=== PATIENT | female | born 1990 | race Caucasian/White ===

== ENCOUNTER 2023-11-25 10:08 | Outpatient (OUT) | payer BC, SELFPAY ==
--- NOTE | 2023-11-25 10:10 | US_ITS ---
The [address] [address] Patient Name: VERO ANAYA MRN: [id number] date: 1990 Sex: F Assigned Patient Location: [facility] Current Patient Location: [facility] Accession/Order Number: [id number] Exam Date: 11/25/2023 10:11 Report Date: 11/25/2023 11:31 At the request of: BECKI TUCKER Procedure: US OB transvaginal EXAMINATION: US OB transvaginal HISTORY: MISSED MENSES COMPARISON: No relevant comparison available. FINDINGS: GESTATIONAL SAC: Present and normal appearing. YOLK SAC: Present and normal appearing. POLE: Present and normal appearing. CARDIAC: Present. UTERUS: Normal size and appearance. OVARIES: Right: Normal. Left: Corpus lutein cyst. CERVIX: cm in length and closed. CUL-DE-SAC: Normal. OTHER: Prominent scarring lower anterior uterine wall from prior . AGE BY LMP: 8 weeks 0 days FREDDIE BY LMP: 07/02/2024 AGE BY US CRL: 7 weeks 5 days FREDDIE BY US CRL: 07/08/2024 US/US OB transvaginal IMPRESSION: 1. Single live intrauterine with growth detailed above. 2. Prominent scar within lower anterior uterine wall; no appreciable thinning at this time. Consider follow-up. Electronically authenticated by: FREDY DICK Date: 11/25/2023 11:31
== END 2023-11-25 10:09 | disposition home or self-care (01) ==
LOC: NOMS 10:09
PROVIDERS: PCP Family Medicine; Visit Provider Obstetrics & Gynecology
DX: Z34.91 Encounter for supervision of normal pregnancy, unspecified, first trimester (principal); Z3A.01 Less than 8 weeks gestation of pregnancy; N92.6 Irregular menstruation, unspecified
CPT/HCPCS: 76817

== ENCOUNTER 2023-12-20 10:41 | Outpatient (OUT) | payer BC, SELFPAY ==
--- OUTSIDE RECORDS SUMMARY | 2023-12-20 11:01 | XMS_ITS | CCD ---
Author Organization [facility] Care Team Providers Care Chorus Dancer Name Role Phone MORTEZAK ., DR MARTIN Admitting Unavailabl e KARASIK ., DR MARTIN Consulting Unavailabl e REQUEST, DR HILARIO LISTED Primary Care Unavaila ble KARASIK ., DR MARTIN Attending Unavailabl e KARASIK ., DR MARTIN Admitting Unavailabl e KARASIK ., DR MARTIN Attending Unavailabl e KARASIK ., DR MARTIN Consulting Unavailabl e REQUEST, DR NONE LISTED Primary Care Unavaila ble KARASIK ., DR MARTIN Attending Unavailabl e KARASIK ., DR MARTIN Admitting Unavailabl e KARASIK ., DR MARTIN Consulting Unavailabl e REQUEST, NONE LISTED Primary Care Unavaila ble KARASIK ., DR MARTIN Attending Unavailabl e KARASIK ., DR MARTIN Admitting Unavailabl e KARASIK ., DR MARTIN Consulting Unavailabl e REQUEST, DR NONE LISTED Primary Care Unavaila ble KARASIK ., DR MARTIN Attending Unavailabl e KARASIK ., DR MARTIN Admitting Unavailabl e KARASIK ., DR MARTIN Consulting Unavailabl e REQUEST, NONE LISTED Primary Care Unavaila ble WEST, DR ASHLEE Castro Consulting Unavailable KARASIK ., DR MARTIN Attending Unavailabl e KARASIK ., DR MARTIN Admitting Unavailabl e KARASIK ., DR MARTIN Consulting Unavailabl e REQUEST, DR RICH LISTED Primary Care Unavaila ble KARASIK ., DR MARTIN Attending Unavailabl e KARASIK ., DR MARTIN Admitting Unavailabl e KARASIK ., DR MARTIN Consulting Unavailabl e REQUEST, NONE LISTED Primary Care Unavaila ble KARASIK ., DR MARTIN Attending Unavailabl e KARASIK ., DR MARTIN Admitting Unavailabl e KARASIK ., DR MARTIN Consulting Unavailabl e REQUEST, NONE LISTED Primary Care Unavaila ble ZIEBER, DR FREDY Copeland Consulting Unavailable KARASIK ., DR MARTIN Admitting Unavailabl e KARASIK ., DR MARTIN Consulting Unavailabl e KARASIK ., DR MARTIN Attending Unavailabl e REQUEST, DR NONE LISTED Primary Care Unavaila ble GARRETT ., DR CONNELL Attending Unavailable GARRETT ., DR CONNELL Procedure Practitioner Unavail able REQUEST, DR NONE LISTED Primary Care Unavaila ble GARRETT ., DR CONNELL Admitting Unavailable GARRETT ., DR CONNELL Consulting Unavailable LEN, EZE Consulting Unavailable MYRA, WILLIS Consulting Unavailable FLORO ., MERRY Consulting Unavailable REINECK, DR MARKUS Turner Consulting Unavailabl e REINECK, DR MARKUS Turner Attending Unavailabl e REQUEST, DR NONE LISTED Primary Care Unavaila ble REINECK, DR MARKUS Turner Admitting Unavailabl e KARASIK ., DR MARTIN Admitting Unavailabl e KARASIK ., DR MARTIN Consulting Unavailabl e REQUEST, DR NONE LISTED Primary Care Unavaila ble KARASIK ., DR MARTIN Attending Unavailabl e GARRETT ., DR CONNELL Consulting Unavailable ZIEBER, DR FREDY Copeland Consulting Unavailable GARRETT, BECKI Attending Unavailable GARRETT, BECKI Attending Unavailable GARRETT, BECIK Attending Unavailable Allergies Allergy Classification Reported Allergen(s) Allergy Type Date of Onset Reaction(s) Facility (1 source) Azithromycin Drug Allergy 12-16-2013 [facility] Repository Problems Active Problems Problem Classification Problem Date Documented Da te Episodic/Chronic Diabetes mellitus without complication (1 source) Other abnormal glucose; Translations: [OTHER ABNORMAL GLUCOSE] Onset: 10-31-2022 Episodic Diabetes or abnormal glucose tolerance complicating ; childbirth; or the puerperium (4 sources) Abnormal glucose complicating ; Translations: [ABNORMAL GLUCOSE COMP ] Onset: 10-26-2022 Episodic Early or threatened labor (4 sources) False labor before 37 completed weeks of gestation, third trimester; Translations: [FALSE LABR BEFOR 37 WK GEST 3RD TRI] Onset: 10-27-2022 Episodic Mood disorders (1 source) Bipolar disorder, unspecified; Translations: [BIPOLAR DISORDER UNSPECIFIED] Onset: 12-14-2022 Chronic Nausea and vomiting (1 source) Nausea; Translations: [NAUSEA] Onset: 11-03-2022 Episodic Other aftercare (1 source) 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; Translations: [OTH SENIOR LIVING CURRENT DRUG THERAPY] Onset: 12-14-2022 Episodic Other complications of ; puerperium affecting management of mother (3 sources) Other viral diseases complicating childbirth; Translations: [OTH VIRAL DISEASES COMP CHILDBIRTH] Onset: 12-09-2022 Episodic Other complications of ; puerperium affecting management of mother (1 source) Liver and biliary tract disorders in childbirth; Translations: [LIVER AND CJ TRACT D/O CHILDBIRTH] Onset: 12-14-2022 Episodic Other complications of ; puerperium affecting management of mother (1 source) Diseases of the digestive system complicating childbirth; Translations: [DZ DIGESTIVE SYSTEM COMP CHILDBIRTH] Onset: 12-14-2022 Episodic Other complications of ; puerperium affecting management of mother (1 source) Other mental disorders complicating childbirth; Translations: [OTH MENTAL D/O COMP CHILDBIRTH] Onset: 12-14-2022 Episodic Other complications of (1 source) Other specified related conditions, third trimester; Translations: [OTH SPEC PREG RELATED COND 3RD TRI] Onset: 11-03-2022 Episodic Other gastrointestinal disorders (1 source) Irritable bowel syndrome without diarrhea; Translations: [IRRITABLE BOWEL SYND W/O DIARRHEA] Onset: 12-14-2022 Chronic Other liver diseases (1 source) Fatty (change of) liver, not elsewhere classified; Translations: [FATTY CHANGE LIVER NEC] Onset: 12-14-2022 Chronic Other and delivery including normal (14 sources) Single live ; Translations: [Encounter for supervision of normal , unspecified, third trimester] Onset: 05-20-2022 Episodic Other screening for suspected conditions (not mental disorders or infectious disease) (16 sources) Encounter for screening for Streptococcus B; Translations: [Encounter for screening for diabetes mellitus] Onset: 07-20-2022 Episodic Residual codes; unclassified (1 source) 39 weeks gestation of ; Translations: [39 WEEKS GESTATION OF ] Onset: 12-14-2022 Episodic Residual codes; unclassified (1 source) 37 weeks gestation of ; Translations: [37 WEEKS GESTATION OF ] Onset: 11-27-2022 Episodic Residual codes; unclassified (1 source) 33 weeks gestation of ; Translations: [33 WEEKS GESTATION OF ] Onset: 11-03-2022 Episodic Screening and history of mental health and substance abuse codes (1 source) Personal history of nicotine dependence; Translations: [PERSONAL HISTORY OF NICOTINE DEPEND] Onset: 12-14-2022 Episodic Substance-related disorders (3 sources) Drug use complicating childbirth; Translations: [Cannabis use, unspecified, uncomplicated] Onset: 11-03-2022 Episodic Viral infection (1 source) Herpesviral infection, unspecified; Translations: [HERPESVIRAL INFECTION UNSPECIFIED] Onset: 12-14-2022 Episodic Past or Other Problems Problem Classification Problem Date Documented Date Episodic/Chronic Immunizations and screening for infectious disease (1 source) Encounter for screening for human papillomavirus (HPV); Translations: [ENC SCREENING HUMAN PAPILLOMAVIRUS] Onset: 07-23-2022 Episodic Other complications of (3 sources) Vomiting of , unspecified; Translations: [VOMITING OF UNSPECIFIED] Onset: 06-16-2022 Episodic Other complications of (1 source) Mild hyperemesis gravidarum; Translations: [MILD HYPEREMESIS GRAVIDARUM] Onset: 06-20-2022 Episodic Residual codes; unclassified (1 source) 13 weeks gestation of ; Translations: [13 WEEKS GESTATION OF ] Onset: 06-20-2022 Episodic Results Test Name Value Interpretation Reference Range Facility CANNABINOID (THC) CONFIRMATI ON, URINEon 12-15-2022 Cannabinoid Positive Abnormal [facility] Comment on above: Performed By: #### C BC #### [facility] [address] [place] [address] Dr. Isi Summers THC GC/MS Conf >750 Normal Cutoff=10 [facility] Comment on above: Performed By: #### C BC #### [facility] [address] [place] [address] Dr. Isi Forbes CBC AUTO DIFFon 12-10-2022 BASO # 0.0 103/ul Normal 0.0-0.1 [facility] Comment on above: Performed By: #### G TT3P #### [facility] [address] [place] [address] Dr. Isi Forbes Basophils/100 WBC (Bld) 0.3 % Normal 0.2-2.0 [facility] Comment on above: Performed By: #### G TT3P #### [facility] [address] [address] [address] Isi Forbes EO # 0.1 103/ul Normal 0.0-0.7 [facility] Comment on above: Performed By: #### G TT3P #### [facility] [address] [address] [address] Isi Forbes Eosinophils/100 WBC (Bld) 0.5 % Critically low 0.9-7.0 [facility] Comment on above: Performed By: #### G TT3P #### [facility] [address] [place] [address] Dr. Isi Forbes Erythrocyte distribution width (RBC) [Ratio] 13.8 % Normal 11.0-15.0 [facility] Comment on above: Performed By: #### G TT3P #### [facility] [address] [place] [address] Dr. Isi Forbes Hematocrit (Bld) [Volume fraction] 24.1 % Critically low 36.0-48.0 [facility] Comment on above: Performed By: #### G TT3P #### [facility] [address] [place] [address] Dr. Isi Forbes Hemoglobin (Bld) [Mass/Vol] 7.7 g/dL Critically low 12.0-16.0 [facility] Comment on above: Performed By: #### G TT3P #### [facility] [address] [place] [address] Dr. Isi Forbes IG # 0.11 10e3/ul Critically high 0.00-0.03 [facility] Comment on above: Performed By: #### G TT3P #### [facility] [address] [place] [address] Dr. Isi Forbes IG % 0.9 % Critically high 0.0-0.5 [facility] Comment on above: Performed By: #### G TT3P #### [facility] [address] [place] [address] Dr. Isi Forbes LYMPH # 2.0 103/ul Normal 1.2-3.8 [facility] Comment on above: Performed By: #### G TT3P #### [facility] [address] [address] [address] Isi Forbes Lymphocytes/100 WBC (Bld) 16.9 % Critically low 20.5-60.0 [facility] Comment on above: Performed By: #### G TT3P #### [facility] [address] [place] [address] Dr. Isi Forbes MANUAL DIFF REQ NO Normal [facility] Comment on above: Performed By: #### G TT3P #### [facility] [address] [place] [address] Dr. Isi Forbes MCH (RBC) [Entitic mass] 27.4 pg Normal 26.7-34.0 [facility] Comment on above: Performed By: #### G TT3P #### [facility] [address] [place] [address] Dr. Isi Forbes MCHC (RBC) [Mass/Vol] 32.0 g/dL Normal 29.9-35.2 [facility] Comment on above: Performed By: #### G TT3P #### [facility] [address] [place] [address] Dr. Isi Forbes MCV (RBC) [Entitic vol] 85.8 fL Normal 81.0-99.0 [facility] Comment on above: Performed By: #### G TT3P #### [facility] [address] [place] [address] Dr. Isi Forbes MONO # 1.5 103/ul Critically high 0.3-0.8 [facility] Comment on above: Performed By: #### G TT3P #### [facility] [address] [place] [address] Dr. Isi Forbes Monocytes/100 WBC (Bld) 12.2 % Critically high 1.7-12.0 [facility] Comment on above: Performed By: #### G TT3P #### [facility] [address] [place] [address] Dr. Isi Forbes NEUT # 8.3 103/ul Critically high 1.4-6.5 [facility] Comment on above: Performed By: #### G TT3P #### [facility] [address] [address] [address] Isi Forbes Neutrophils/100 WBC (Bld) 69.2 % Normal 43.0-75.0 [facility] Comment on above: Performed By: #### G TT3P #### [facility] [address] [address] [address] Isi Forbes Platelet mean volume (Bld) [Entitic vol] 9.6 fL Normal 9.5-13.5 [facility] Comment on above: Performed By: #### G TT3P #### [facility] [address] [address] [address] Isi Forbes PLT 205 103/ul Normal 150-450 [facility] Comment on above: Performed By: #### G TT3P #### [facility] [address] [place] [address] Dr. Isi Forbes RBC 2.81 106/ul Critically low 4.20-5.40 [facility] Comment on above: Performed By: #### G TT3P #### [facility] [address] [address] [address] Isi Forbes WBC 12.0 103/ul Critically high 4.0-11.0 [facility] Comment on above: Performed By: #### G TT3P #### [facility] [address] [place] [address] Dr. Isi Forbes CBC AUTO DIFFon 12-09-2022 BASO # 0.1 103/ul Normal 0.0-0.1 [facility] Comment on above: Performed By: #### G TT3P #### [facility] [address] [address] [address] Isi Forbes Basophils/100 WBC (Bld) 0.5 % Normal 0.2-2.0 [facility] Comment on above: Performed By: #### G TT3P #### [facility] [address] [address] [address] Isi Forbes EO # 0.1 103/ul Normal 0.0-0.7 [facility] Comment on above: Performed By: #### G TT3P #### [facility] [address] [address] [address] Isi Forbes Eosinophils/100 WBC (Bld) 0.4 % Critically low 0.9-7.0 [facility] Comment on above: Performed By: #### G TT3P #### [facility] [address] [place] [address] Dr. Isi Forbes Erythrocyte distribution width (RBC) [Ratio] 13.7 % Normal 11.0-15.0 [facility] Comment on above: Performed By: #### G TT3P #### [facility] [address] [place] [address] Dr. Isi Forbes Hematocrit (Bld) [Volume fraction] 31.9 % Critically low 36.0-48.0 [facility] Comment on above: Performed By: #### G TT3P #### [facility] [address] [place] [address] Dr. Isi Forbes Hemoglobin (Bld) [Mass/Vol] 10.5 g/dL Critically low 12.0-16.0 [facility] Comment on above: Performed By: #### G TT3P #### [facility] [address] [place] [address] Dr. Isi Forbes IG # 0.13 10e3/ul Critically high 0.00-0.03 [facility] Comment on above: Performed By: #### G TT3P #### [facility] [address] [place] [address] Dr. Isi Forbes IG % 1.2 % Critically high 0.0-0.5 [facility] Comment on above: Performed By: #### G TT3P #### [facility] [address] [place] [address] Dr. Isi Fobres LYMPH # 2.0 103/ul Normal 1.2-3.8 [facility] Comment on above: Performed By: #### G TT3P #### [facility] [address] [place] [address] Dr. Isi Forbes Lymphocytes/100 WBC (Bld) 18.0 % Critically low 20.5-60.0 [facility] Comment on above: Performed By: #### G TT3P #### [facility] [address] [place] [address] Dr. Isi Forbes MANUAL DIFF REQ NO Normal [facility] Comment on above: Performed By: #### G TT3P #### [facility] [address] [place] [address] Dr. Isi Forbes MCH (RBC) [Entitic mass] 27.6 pg Normal 26.7-34.0 [facility] Comment on above: Performed By: #### G TT3P #### [facility] [address] [place] [address] Dr. Isi Forbes MCHC (RBC) [Mass/Vol] 32.9 g/dL Normal 29.9-35.2 [facility] Comment on above: Performed By: #### G TT3P #### [facility] [address] [place] [address] Dr. Isi Forbes MCV (RBC) [Entitic vol] 83.9 fL Normal 81.0-99.0 [facility] Comment on above: Performed By: #### G TT3P #### [facility] [address] [place] [address] Dr. Isi Forbes MONO # 1.0 103/ul Critically high 0.3-0.8 [facility] Comment on above: Performed By: #### G TT3P #### [facility] [address] [place] [address] Dr. Isi Forbes Monocytes/100 WBC (Bld) 8.9 % Normal 1.7-12.0 [facility] Comment on above: Performed By: #### G TT3P #### [facility] [address] [place] [address] Dr. Isi Forbes NEUT # 7.9 103/ul Critically high 1.4-6.5 [facility] Comment on above: Performed By: #### G TT3P #### [facility] [address] [place] [address] Dr. Isi Forbes Neutrophils/100 WBC (Bld) 71.0 % Normal 43.0-75.0 [facility] Comment on above: Performed By: #### G TT3P #### [facility] [address] [place] [address] Dr. Isi Forbes Platelet mean volume (Bld) [Entitic vol] 10.0 fL Normal 9.5-13.5 [facility] Comment on above: Performed By: #### G TT3P #### [facility] [address] [address] [address] Isi Forbes PLT 264 103/ul Normal 150-450 [facility] Comment on above: Performed By: #### G TT3P #### [facility] [address] [address] [address] Isi Forbes RBC 3.80 106/ul Critically low 4.20-5.40 [facility] Comment on above: Performed By: #### G TT3P #### [facility] [address] [place] [address] Dr. Isi Forbes WBC 11.1 103/ul Critically high 4.0-11.0 [facility] Comment on above: Performed By: #### G TT3P #### [facility] [address] [place] [address] Dr. Isi Forbes DRUG SCREEN RAPID (URINE)on 12-09-2022 AMP Negative Normal NEGATIVE [facility] Comment on above: Performed By: #### G TT3P #### [facility] [address] [place] [address] Dr. Isi Forbes BAR Negative Normal NEGATIVE [facility] Comment on above: Performed By: #### G TT3P #### [facility] [address] [place] [address] Dr. Isi Forbes BUP Negative Normal NEGATIVE [facility] Comment on above: Performed By: #### G TT3P #### [facility] [address] [place] [address] Dr. Isi Forbes BZO Negative Normal NEGATIVE [facility] Comment on above: Performed By: #### G TT3P #### [facility] [address] [place] [address] Dr. Isi Forbes BEATA Negative Normal NEGATIVE [facility] Comment on above: Performed By: #### G TT3P #### [facility] [address] [place] [address] Dr. Isi Forbes CUT-OFFS SEE BELOW Normal [facility] Comment on above: Result Comment: AMP (Amphetamine): 500ng/mL, BAR (Barbituates): 200 ng/mL, BZO (Benzodiazepines): 150 ng/mL, BUP (Buprenorphine): 10 ng/mL, BEATA (Cocaine): 150 ng/mL, mAMP (Methamphetamine): 500 ng/mL, MTD (Methadone): 200 ng/mL, OPI (Opiates): 100 ng/mL, OXY (Oxycodone): 100 ng/mL, PCP (Phencyclidine): 25 ng/mL, PPX (Propoxyphene): 300 ng/mL, THC (Cannabinoids): 50 ng/mL, TCA (Trycyclic Antidepressants): 300 ng/mL Performed By: #### G TT3P #### [facility] [address] [place] [address] Dr. Isi Forbes DRUG CUT HEADER DRUG CLASS TEST SYSTEM CUT-OFF CONCENTRATIONS ARE FOLLOWS: Normal [facility] Comment on above: Performed By: #### G TT3P #### [facility] [address] [place] [address] Dr. Isi Forbes mAMP Negative Normal NEGATIVE [facility] Comment on above: Performed By: #### G TT3P #### [facility] [address] [place] [address] Dr. Isi Forbes MTD Negative Normal NEGATIVE [facility] Comment on above: Performed By: #### G TT3P #### [facility] [address] [place] [address] Dr. Isi Forbes OPI Negative Normal NEGATIVE [facility] Comment on above: Performed By: #### G TT3P #### [facility] [address] [place] [address] Dr. Isi Forbes OXY Negative Normal NEGATIVE [facility] Comment on above: Performed By: #### G TT3P #### [facility] [address] [place] [address] Dr. Isi Forbes PCP Negative Normal NEGATIVE [facility] Comment on above: Performed By: #### G TT3P #### [facility] [address] [place] [address] Dr. Isi Forbes PPX Negative Normal NEGATIVE [facility] Comment on above: Performed By: #### G TT3P #### [facility] [address] [place] [address] Dr. Isi Forbes TCA Negative Normal NEGATIVE [facility] Comment on above: Performed By: #### G TT3P #### [facility] [address] [place] [address] Dr. Isi Forbes THC Positive Abnormal NEGATIVE [facility] Comment on above: Performed By: #### G TT3P #### [facility] [address] [place] [address] Dr. Isi Forbes TYPE AND SCREENon 12-09-2022 TYPE AND SCREEN Negative Normal [facility] Comment on above: Performed By: #### R PRQ #### [facility] [address] [place] [address] Dr. Isi Forbes UA (CLEAN/CATCH) CORPORATE INVESTIGATOR/MICRO I F IND.on 12-09-2022 Bilirubin Ql (U) Negative Normal NEGATIVE [facility] Comment on above: Performed By: #### C BC #### [facility] [address] [place] [address] Dr. Isi Forbes Clarity (U) CLEAR Normal CLEAR [facility] Comment on above: Performed By: #### C BC #### [facility] [address] [place] [address] Dr. Isi Forbes Color (U) YELLOW Normal YELLOW [facility] Comment on above: Performed By: #### C BC #### [facility] [address] [place] [address] Dr. Isi Forbes Glucose Ql (U) Negative Normal NEGATIVE [facility] Comment on above: Performed By: #### C BC #### [facility] [address] [place] [address] Dr. Isi Forbes Hemoglobin Ql (U) Negative Normal NEGATIVE [facility] Comment on above: Performed By: #### C BC #### [facility] [address] [place] [address] Dr. Isi Forbes Ketones Ql (U) TRACE Abnormal NEGATIVE [facility] Comment on above: Performed By: #### C BC #### [facility] [address] [place] [address] Dr. Isi Forbes LEUKOCYTES Negative Normal NEGATIVE [facility] Comment on above: Performed By: #### C BC #### [facility] [address] [place] [address] Dr. Isi Forbes Nitrite Ql (U) Negative Normal NEGATIVE [facility] Comment on above: Performed By: #### C BC #### [facility] [address] [place] [address] Dr. Isi Forbes pH (U) 6.5 [pH] Normal 5-9 [facility] Comment on above: Performed By: #### C BC #### [facility] [address] [place] [address] Dr. Isi Forbes SPEC GRAVITY 1.025 Normal 1.005-<=1.025 [facility] Comment on above: Performed By: #### C BC #### [facility] [address] [place] [address] Dr. Isi Forbes UA PROTEIN TRACE Normal NEGATIVE/ TRACE [facility] Comment on above: Performed By: #### C BC #### [facility] [address] [place] [address] Dr. Isi Forbes UR MICRO IND NOT INDICATED Normal [facility] Comment on above: Performed By: #### C BC #### [facility] [address] [place] [address] Dr. Isi Forbes Urobilinogen Qn (U) 0.2 {Barb'U}/dL Normal 0.2 - 1. 0 [facility] Comment on above: Performed By: #### C BC #### [facility] [address] [place] [address] Dr. Isi Forbes GROUP B STREP CULTUREon 11-15 S. agalactiae Ag Ql (Unsp spec) Culture Observations: NEGATIVE FOR GROUP B STREPTOCOCCUS. Normal [facility] Comment on above: Performed By: #### R PRQ #### [facility] [address] [address] [address] Isi Forbes US PREG BIOPHY W NON STRESSo n 11-01-2022 US PREG BIOPHY W NON STRESS EXAMINATION: US PREG BIOPHY W NON STRESS HISTORY: Contraction COMPARISON: Ultrasound anatomy 08/04/2022 FINDINGS: BREATHING MOVEMENTS: 2.0 GROSS BODY MOVEMENTS: 2.0 TONE: 2.0 QUALITATIVE AMNIOTIC FLUID VOLUME: 2.0 PRESENTATION: CEPHALIC HEART RATE: 145.2 bpm bpm. AMNIOTIC FLUID VOLUME: 16.9 cm GESTATIONAL AGE: 33 weeks 0 days CONCLUSION: Total biophysical profile score 8.0. Electronically authenticated by: FREDY DICK Date: 2022-10-31 22:08 Normal [facility] US PREG GROWTHon 11-01-2022 US PREG GROWTH EXAMINATION: US PREG GROWTH HISTORY: Contraction COMPARISON: Ultrasound anatomy 08/04/2022 FINDINGS: Heart Rate: 145.2 bpm Number: 1.0 Position: CEPHALIC Amniotic Fluid Volume: 16.9 cm Maximum Vertical Pocket: 6.5 cm BIOMETRY: BPD: 8.6 cm cm; 34 weeks 4 days; 85% HC: 31.6 cmcm; 35 weeks 3 days; 76% AC: 31.2 cm cm; 35 weeks 1 days; 95% FL: 6.2 cm cm; 31 weeks 6 days; 14% EFW: 2378.1 grams; 78% FL/AC: 19.7 FL/BPD: 71.8 HC/AC: 1.0 GESTATIONAL AGE: Age by EDC: 33 weeks 0 days FREDDIE by EDC: 12/15/2022 Age by US: 34 weeks 2 days FREDDIE by US: 12/06/2022 IMPRESSION: 1. Single live intrauterine . 2. Abdominal circumference is at 95th percentile. Electronically authenticated by: FREDY DICK Date: 2022-10-31 22:07 Normal [facility] CBC AUTO DIFFon 10-28-2022 BASO # 0.0 103/ul Normal 0.0-0.1 [facility] Comment on above: Performed By: #### G TT3P #### [facility] [address] [address] [address] Isi Forbes Basophils/100 WBC (Bld) 0.1 % Critically low 0.2-2.0 [facility] Comment on above: Performed By: #### G TT3P #### [facility] [address] [place] [address] Dr. Isi Forbes EO # 0.0 103/ul Normal 0.0-0.7 [facility] Comment on above: Performed By: #### G TT3P #### [facility] [address] [place] [address] Dr. Isi Forbes Eosinophils/100 WBC (Bld) 0.1 % Critically low 0.9-7.0 [facility] Comment on above: Performed By: #### G TT3P #### [facility] [address] [place] [address] Dr. Isi Forbes Erythrocyte distribution width (RBC) [Ratio] 12.7 % Normal 11.0-15.0 [facility] Comment on above: Performed By: #### G TT3P #### [facility] [address] [place] [address] Dr. Isi Forbes Hematocrit (Bld) [Volume fraction] 29.1 % Critically low 36.0-48.0 [facility] Comment on above: Performed By: #### G TT3P #### [facility] [address] [place] [address] Dr. Isi Forbes Hemoglobin (Bld) [Mass/Vol] 9.4 g/dL Critically low 12.0-16.0 [facility] Comment on above: Performed By: #### G TT3P #### [facility] [address] [place] [address] Dr. Isi Forbes IG # 0.20 10e3/ul Critically high 0.00-0.03 [facility] Comment on above: Performed By: #### G TT3P #### [facility] [address] [place] [address] Dr. Isi Forbes IG % 1.4 % Critically high 0.0-0.5 [facility] Comment on above: Performed By: #### G TT3P #### [facility] [address] [address] [address] Isi Forbes LYMPH # 1.9 103/ul Normal 1.2-3.8 [facility] Comment on above: Performed By: #### G TT3P #### [facility] [address] [address] [address] Isi Forbes Lymphocytes/100 WBC (Bld) 13.5 % Critically low 20.5-60.0 [facility] Comment on above: Performed By: #### G TT3P #### [facility] [address] [address] [address] Isi Forbes MANUAL DIFF REQ NO Normal [facility] Comment on above: Performed By: #### G TT3P #### [facility] [address] [place] [address] Dr. Isi Forbes MCH (RBC) [Entitic mass] 28.2 pg Normal 26.7-34.0 [facility] Comment on above: Performed By: #### G TT3P #### [facility] [address] [place] [address] Dr. Isi Forbes MCHC (RBC) [Mass/Vol] 32.3 g/dL Normal 29.9-35.2 [facility] Comment on above: Performed By: #### G TT3P #### [facility] [address] [place] [address] Dr. Isi Forbes MCV (RBC) [Entitic vol] 87.4 fL Normal 81.0-99.0 [facility] Comment on above: Performed By: #### G TT3P #### [facility] [address] [place] [address] Dr. Isi Forbes MONO # 0.8 103/ul Normal 0.3-0.8 [facility] Comment on above: Performed By: #### G TT3P #### [facility] [address] [place] [address] Dr. Isi Forbes Monocytes/100 WBC (Bld) 5.9 % Normal 1.7-12.0 [facility] Comment on above: Performed By: #### G TT3P #### [facility] [address] [address] [address] Isi Forbes NEUT # 10.9 103/ul Critically high 1.4-6.5 [facility] Comment on above: Performed By: #### G TT3P #### [facility] [address] [address] [address] Isi Forbes Neutrophils/100 WBC (Bld) 79.0 % Critically high 43.0-75.0 [facility] Comment on above: Performed By: #### G TT3P #### [facility] [address] [address] [address] Isi Forbes Platelet mean volume (Bld) [Entitic vol] 9.3 fL Critically low 9.5-13.5 [facility] Comment on above: Performed By: #### G TT3P #### [facility] [address] [place] [address] Dr. Isi Forbes PLT 265 103/ul Normal 150-450 [facility] Comment on above: Performed By: #### G TT3P #### [facility] [address] [place] [address] Dr. Isi Forbes RBC 3.33 106/ul Critically low 4.20-5.40 [facility] Comment on above: Performed By: #### G TT3P #### [facility] [address] [place] [address] Dr. Isi Forbes WBC 13.8 103/ul Critically high 4.0-11.0 [facility] Comment on above: Performed By: #### G TT3P #### [facility] [address] [place] [address] Dr. Isi Forbes CBC AUTO DIFFon 10-27-2022 BASO # 0.0 103/ul Normal 0.0-0.1 [facility] Comment on above: Performed By: #### C BC #### [facility] [address] [place] [address] Dr. Isi Forbes Basophils/100 WBC (Bld) 0.2 % Normal 0.2-2.0 [facility] Comment on above: Performed By: #### C BC #### [facility] [address] [address] [address] Isi Forbes EO # 0.0 103/ul Normal 0.0-0.7 [facility] Comment on above: Performed By: #### C BC #### [facility] [address] [place] [address] Dr. Isi Forbes Eosinophils/100 WBC (Bld) 0.1 % Critically low 0.9-7.0 [facility] Comment on above: Performed By: #### C BC #### [facility] [address] [place] [address] Dr. Isi Forbes Erythrocyte distribution width (RBC) [Ratio] 12.7 % Normal 11.0-15.0 [facility] Comment on above: Performed By: #### C BC #### [facility] [address] [place] [address] Dr. Isi Forbes Hematocrit (Bld) [Volume fraction] 30.4 % Critically low 36.0-48.0 [facility] Comment on above: Performed By: #### C BC #### [facility] [address] [place] [address] Dr. Isi Forbes Hemoglobin (Bld) [Mass/Vol] 10.4 g/dL Critically low 12.0-16.0 [facility] Comment on above: Performed By: #### C BC #### [facility] [address] [place] [address] Dr. Isi Forbes IG # 0.19 10e3/ul Critically high 0.00-0.03 [facility] Comment on above: Performed By: #### C BC #### [facility] [address] [place] [address] Dr. Isi Forbes IG % 1.2 % Critically high 0.0-0.5 [facility] Comment on above: Performed By: #### C BC #### [facility] [address] [place] [address] Dr. Isi Forbes LYMPH # 1.1 103/ul Critically low 1.2-3.8 [facility] Comment on above: Performed By: #### C BC #### [facility] [address] [place] [address] Dr. Isi Forbes Lymphocytes/100 WBC (Bld) 6.7 % Critically low 20.5-60.0 [facility] Comment on above: Performed By: #### C BC #### [facility] [address] [place] [address] Dr. Isi Forbes MANUAL DIFF REQ NO Normal [facility] Comment on above: Performed By: #### C BC #### [facility] [address] [place] [address] Dr. Isi Forbes MCH (RBC) [Entitic mass] 29.5 pg Normal 26.7-34.0 [facility] Comment on above: Performed By: #### C BC #### [facility] [address] [place] [address] Dr. Isi Forbes MCHC (RBC) [Mass/Vol] 34.2 g/dL Normal 29.9-35.2 [facility] Comment on above: Performed By: #### C BC #### [facility] [address] [place] [address] Dr. Isi Forbes MCV (RBC) [Entitic vol] 86.1 fL Normal 81.0-99.0 [facility] Comment on above: Performed By: #### C BC #### [facility] [address] [place] [address] Dr. Isi Forbes MONO # 0.3 103/ul Normal 0.3-0.8 [facility] Comment on above: Performed By: #### C BC #### [facility] [address] [place] [address] Dr. Isi Forbes Monocytes/100 WBC (Bld) 1.7 % Normal 1.7-12.0 [facility] Comment on above: Performed By: #### C BC #### [facility] [address] [place] [address] Dr. Isi Forbes NEUT # 14.1 103/ul Critically high 1.4-6.5 [facility] Comment on above: Performed By: #### C BC #### [facility] [address] [address] [address] Isi Forbes Neutrophils/100 WBC (Bld) 90.1 % Critically high 43.0-75.0 [facility] Comment on above: Performed By: #### C BC #### [facility] [address] [place] [address] Dr. Isi Forbes Platelet mean volume (Bld) [Entitic vol] 8.9 fL Critically low 9.5-13.5 [facility] Comment on above: Performed By: #### C BC #### [facility] [address] [place] [address] Dr. Isi Forbes PLT 276 103/ul Normal 150-450 [facility] Comment on above: Performed By: #### C BC #### [facility] [address] [place] [address] Dr. Isi Forbes RBC 3.53 106/ul Critically low 4.20-5.40 [facility] Comment on above: Performed By: #### C BC #### [facility] [address] [place] [address] Dr. Isi Forbes WBC 15.6 103/ul Critically high 4.0-11.0 [facility] Comment on above: Performed By: #### C BC #### [facility] [address] [place] [address] Dr. Isi Forbes UA (CLEAN/CATCH) CORPORATE INVESTIGATOR/MICRO I F IND.on 10-27-2022 Bilirubin Ql (U) Negative Normal NEGATIVE [facility] Comment on above: Performed By: #### C BC #### [facility] [address] [place] [address] Dr. Isi Forbes Clarity (U) CLEAR Normal CLEAR [facility] Comment on above: Performed By: #### C BC #### [facility] [address] [place] [address] Dr. Isi Forbes Color (U) LT. YELLOW Normal YELLOW [facility] Comment on above: Performed By: #### C BC #### [facility] [address] [place] [address] Dr. Isi Forbes Glucose Ql (U) Negative Normal NEGATIVE [facility] Comment on above: Performed By: #### C BC #### [facility] [address] [place] [address] Dr. Isi Forbes Hemoglobin Ql (U) Negative Normal NEGATIVE [facility] Comment on above: Performed By: #### C BC #### [facility] [address] [place] [address] Dr. Isi Forbes Ketones Ql (U) Negative Normal NEGATIVE [facility] Comment on above: Performed By: #### C BC #### [facility] [address] [place] [address] Dr. Isi Forbes LEUKOCYTES Negative Normal NEGATIVE [facility] Comment on above: Performed By: #### C BC #### [facility] [address] [place] [address] Dr. Isi Forbes Nitrite Ql (U) Negative Normal NEGATIVE [facility] Comment on above: Performed By: #### C BC #### [facility] [address] [place] [address] Dr. Isi Forbes pH (U) 6.0 [pH] Normal 5-9 [facility] Comment on above: Performed By: #### C BC #### [facility] [address] [place] [address] Dr. Isi Forbes SPEC GRAVITY 1.010 Normal 1.005-<=1.025 [facility] Comment on above: Performed By: #### C BC #### [facility] [address] [place] [address] Dr. Isi Forbes UA PROTEIN Negative Normal NEGATIVE/ TRACE [facility] Comment on above: Performed By: #### C BC #### [facility] [address] [place] [address] Dr. Isi Forbes UR MICRO IND NOT INDICATED Normal [facility] Comment on above: Performed By: #### C BC #### [facility] [address] [place] [address] Dr. Isi Forbes Urobilinogen Qn (U) 0.2 {Barb'U}/dL Normal 0.2 - 1. 0 [facility] Comment on above: Performed By: #### C BC #### [facility] [address] [address] [address] Isi Forbes US PREG CERVICAL LENGTHon US PREG CERVICAL LENGTH EXAMINATION: US PREG CERVICAL LENGTH HISTORY: Contraction COMPARISON: Ultrasound anatomy 08/04/2022 TECHNIQUE: Transabdominal and transvaginal sonographic examination for cervical length. FINDINGS: CERVIX LENGTH: 5.1 cm, decreasing to 4.5 cm with Valsalva. POSITION: Cephalic HEART RATE: 153 bpm Age by EDC: 33 weeks 0 days FREDDIE by EDC: 12/15/2022 IMPRESSION: 1. Single live intrauterine . 2. Closed cervix ranging between 5.1 and 4.5 cm. Electronically authenticated by: FREDY DICK Date: 2022-10-27 16:05 Normal [facility] GTT 3 HR PREGon 10-26-2022 Glucose [Mass/Vol] 99 mg/dL Normal 74-106 [facility] Comment on above: Performed By: #### G TT3P #### [facility] [address] [address] [address] Isi Forbes Glucose [Mass/Vol] 172 mg/dL Normal [facility] Comment on above: Performed By: #### G TT3P #### [facility] [address] [address] [address] Isi Forbes Glucose [Mass/Vol] 147 mg/dL Normal [facility] Comment on above: Performed By: #### G TT3P #### [facility] [address] [address] [address] Isi Forbes Glucose [Mass/Vol] 125 mg/dL Normal [facility] Comment on above: Performed By: #### G TT3P #### [facility] [address] [address] [address] Isi Forbes GLYCOHEMOGLOBIN A1Con 2022 ADA RECOMMENDATION SEE BELOW Normal [facility] Comment on above: Result Comment: ADA RECOMMENDED LIMIT 4.0 - 6.0 ADA THERAPEUTIC TARGET < 7.0 ACTION SUGGESTED > 7.0 Performed By: #### A 1C #### [facility] [address] [address] [address] Isi Forbes Glucose [Mass/Vol] 114 mg/dL Normal [facility] Comment on above: Performed By: #### A 1C #### [facility] [address] [place] [address] Dr. Isi Forbes HbA1c (Bld) [Mass fraction] 5.6 % Normal 4.5-6.2 [facility] Comment on above: Performed By: #### A 1C #### [facility] [address] [place] [address] Dr. Isi Forbes UA RANDOMon 10-25-2022 Bilirubin Ql (U) Negative Normal NEGATIVE [facility] Comment on above: Performed By: #### R PRQ #### [facility] [address] [place] [address] Dr. Isi Forebs Clarity (U) CLEAR Normal CLEAR [facility] Comment on above: Performed By: #### R PRQ #### [facility] [address] [place] [address] Dr. Isi Forbes Color (U) LT. YELLOW Normal YELLOW [facility] Comment on above: Performed By: #### R PRQ #### [facility] [address] [place] [address] Dr. Isi Forbes Glucose Ql (U) Negative Normal NEGATIVE [facility] Comment on above: Performed By: #### R PRQ #### [facility] [address] [place] [address] Dr. Isi Forbes Hemoglobin Ql (U) Negative Normal NEGATIVE [facility] Comment on above: Performed By: #### R PRQ #### [facility] [address] [place] [address] Dr. Isi Forbes Ketones Ql (U) Negative Normal NEGATIVE [facility] Comment on above: Performed By: #### R PRQ #### [facility] [address] [place] [address] Dr. Isi Forbes LEUKOCYTES Negative Normal NEGATIVE [facility] Comment on above: Performed By: #### R PRQ #### [facility] [address] [place] [address] Dr. Isi Forbes Nitrite Ql (U) Negative Normal NEGATIVE [facility] Comment on above: Performed By: #### R PRQ #### [facility] [address] [place] [address] Dr. Isi Forbes pH (U) 7.5 [pH] Normal 5-9 [facility] Comment on above: Performed By: #### R PRQ #### [facility] [address] [place] [address] Dr. Isi Forbes SPEC GRAVITY 1.020 Normal 1.005-<=1.025 [facility] Comment on above: Performed By: #### R PRQ #### [facility] [address] [place] [address] Dr. Isi Forbes UA PROTEIN Negative Normal NEGATIVE/ TRACE [facility] Comment on above: Performed By: #### R PRQ #### [facility] [address] [place] [address] Dr. Isi Forbes Urobilinogen Qn (U) 0.2 {Barb'U}/dL Normal 0.2 - 1. 0 [facility] Comment on above: Performed By: #### R PRQ #### [facility] [address] [place] [address] Dr. Isi Forbes GLUCOSE - 1HRon 09-27-2022 Glucose [Mass/Vol] 166 mg/dL Critically high 74-106 [facility] Comment on above: Performed By: #### C BC #### [facility] [address] [place] [address] Dr. Isi Forbes HEMOGRAM AND PLATELon 2022 Hematocrit (Bld) [Volume fraction] 30.9 % Critically low 36.0-48.0 [facility] Comment on above: Performed By: #### C BC #### [facility] [address] [place] [address] Dr. Isi Forbes Hemoglobin (Bld) [Mass/Vol] 10.4 g/dL Critically low 12.0-16.0 [facility] Comment on above: Performed By: #### C BC #### [facility] [address] [place], [place] [id number] Dr. Isi Forbes MCH (RBC) [Entitic mass] 29.9 pg Normal 26.7-34.0 [facility] Comment on above: Performed By: #### C BC #### [facility] [address] [place] [address] Dr. Isi Forbes MCHC (RBC) [Mass/Vol] 33.7 g/dL Normal 29.9-35.2 [facility] Comment on above: Performed By: #### C BC #### [facility] [address] [address] [address] Isi Forbes MCV (RBC) [Entitic vol] 88.8 fL Normal 81.0-99.0 [facility] Comment on above: Performed By: #### C BC #### [facility] [address] [place] [address] Dr. Isi Forbes PLT 300 103/ul Normal 150-450 [facility] Comment on above: Performed By: #### C BC #### [facility] [address] [place] [address] Dr. Isi Forbes RBC 3.48 106/ul Critically low 4.20-5.40 [facility] Comment on above: Performed By: #### C BC #### [facility] [address] [place] [address] Dr. Isi Forbes WBC 10.1 103/ul Normal 4.0-11.0 [facility] Comment on above: Performed By: #### C BC #### [facility] [address] [place] [address] Dr. Isi Forbes US PREG ANATOMY SINGLEon US PREG ANATOMY SINGLE EXAMINATION: US PREG ANATOMY SINGLE HISTORY: anatomy study COMPARISON: No relevant comparison available. TECHNIQUE: Transabdominal sonographic examination was performed for obstetrical and evaluation. FINDINGS: Number: 1 Heart Rate: 155.0 bpm H.B. /min Amniotic Fluid Volume: Subjectively normal position: Variable Placental Location: Anterior, grade 0. Placental edge 6.8 cm from the cervical os Cervix Length: 4.5 cm, closed Normal structures: Cerebellum. Choroid plexus. Cisterna magna. Lateral cerebral ventricles. Orbits. Midline falx. Hard palate. 4-chamber heart. RVOT. LVOT. Stomach. Kidneys. Bladder. Umbilical cord insertion into abdomen. 3 vessel cord. Cervical spine. Thoracic spine. Lumbar spine. Sacral spine. Right upper extremity. Left upper extremity. Right lower extremity. Left lower extremity. Suboptimally seen: None. Abnormalities/Other: None BIOMETRY: BPD: 5.2 cm 21 weeks 5 days, 73% HC: 19.1 cm 21 weeks 3 days, 55% AC: 16.2 cm 21 weeks 3 days, 54% FL: 3.8 cm 22 weeks 2 days, 82% EFW:443.7 grams; 1 lb. 0 oz., 43% by ultrasound, 81% by LMP FL/AC: 0.2 FL/BPD: 0.7 HC/AC: 1.2 GESTATIONAL AGE: Age by EDC: 21 weeks 0 days FREDDIE by EDC: 12/15/2022 Age by current US: 21 weeks 5 days FREDDIE by current US: 12/10/2022 IMPRESSION: Normal anatomy scan *Reference: [employer] Practice Guideline for the performance of Obstetric Ultrasound Examinations, April 17, 2007. Electronically authenticated by: ASHLEE STOVER Date: 2022-08-04 16:06 Normal [facility] PAP ACOG PANEL 2: 30 to 65on 07-25-2022 . . Normal [facility] Comment on above: Result Comment: Perf ormed at: [facility] Performed By: #### G TT3P #### [facility] [address] [address] [address] Isi Forbes Age Gdln ACOG Testing 30-65 Normal [facility] Comment on above: Performed By: #### G TT3P #### [facility] [address] [address] [address] Isi Forbes DIAGNOSIS: Comment Normal [facility] Comment on above: Result Comment: NEGA TIVE FOR INTRAEPITHELIAL LESION OR MALIGNANCY. Performed at: [facility] Performed By: #### G TT3P #### [facility] [address] [address] [address] Isi Forbes HPV Aptima Negative Normal Negative [facility] Comment on above: Result Comment: This nucleic acid amplification test detects fourteen high-risk HPV types (16,18,31,33,35,39,45,51,52,56,58,59,66,68) without differentiation. Performed at: =G Performed By: #### G TT3P #### [facility] [address] [place] [address] Dr. Isi Forbes HPV Genotype Reflex Comment Normal [facility] Comment on above: Result Comment: Crit eria not met, HPV Genotype not performed. Performed at: [facility] Performed By: #### G TT3P #### [facility] [address] [place] [address] Dr. Isi Forbes Methodology: Comment Normal [facility] Comment on above: Result Comment: This liquid based ThinPrep(R) pap test was screened with the use of an image guided system. Performed at: [facility] Performed By: #### G TT3P #### [facility] [address] [place] [address] Dr. Isi Forbes Note: Comment Normal [facility] Comment on above: Result Comment: The Pap smear is a screening test designed to aid in the detection of premalignant and malignant conditions of the uterine cervix. It is not a diagnostic procedure and should not be used as the sole means of detecting cervical cancer. Both false-positive and false-negative reports do occur. . Performed at: [facility] Performed By: #### G TT3P #### [facility] [address] [place] [address] Dr. Isi Forbes Performed by: Comment Normal [facility] Comment on above: Result Comment: Mikki Good, Ribbon Lapper Tender (ASCP) Performed at: [facility] Performed By: #### G TT3P #### [facility] [address] [place] [address] Dr. Isi Forbes Specimen adequacy: Comment Normal [facility] Comment on above: Result Comment: Sati sfactory for evaluation. Endocervical and/or squamous metaplastic cells (endocervical component) are present. Performed at: [facility] Performed By: #### G TT3P #### [facility] [address] [place] [address] Dr. Isi Forbes CHLAMYDIA/GONOCOCCUS SARA (SW AB/URINE/PAPon 07-23-2022 Chlamydia trachomatis, SARA Negative Normal Negative [facility] Comment on above: Performed By: #### C BC #### [facility] [address] [place] [address] Dr. Isi Forbes Neisseria gonorrhoeae, SARA Negative Normal Negative [facility] Comment on above: Performed By: #### C BC #### [facility] [address] [place] [address] Dr. Isi Forbes CBC AUTO DIFFon 06-16-2022 BASO # 0.1 103/ul Normal 0.0-0.1 [facility] Comment on above: Performed By: #### G TT3P #### [facility] [address] [place] [address] Dr. Isi Forbes Basophils/100 WBC (Bld) 0.5 % Normal 0.2-2.0 [facility] Comment on above: Performed By: #### G TT3P #### [facility] [address] [place] [address] Dr. Isi Forbes EO # 0.1 103/ul Normal 0.0-0.7 [facility] Comment on above: Performed By: #### G TT3P #### [facility] [address] [place] [address] Dr. Isi Forbes Eosinophils/100 WBC (Bld) 1.2 % Normal 0.9-7.0 [facility] Comment on above: Performed By: #### G TT3P #### [facility] [address] [place] [address] Dr. Isi Forbes Erythrocyte distribution width (RBC) [Ratio] 12.7 % Normal 11.0-15.0 [facility] Comment on above: Performed By: #### G TT3P #### [facility] [address] [place] [address] Dr. Isi Forbes Hematocrit (Bld) [Volume fraction] 33.0 % Critically low 36.0-48.0 [facility] Comment on above: Performed By: #### G TT3P #### [facility] [address] [place] [address] Dr. Isi Forbes Hemoglobin (Bld) [Mass/Vol] 11.3 g/dL Critically low 12.0-16.0 [facility] Comment on above: Performed By: #### G TT3P #### [facility] [address] [place] [address] Dr. Isi Forbes IG # 0.06 10e3/ul Critically high 0.00-0.03 [facility] Comment on above: Performed By: #### G TT3P #### [facility] [address] [place] [address] Dr. Isi Forbes IG % 0.6 % Critically high 0.0-0.5 [facility] Comment on above: Performed By: #### G TT3P #### [facility] [address] [place] [address] Dr. Isi Forbes LYMPH # 2.0 103/ul Normal 1.2-3.8 [facility] Comment on above: Performed By: #### G TT3P #### [facility] [address] [place] [address] Dr. Isi Forbes Lymphocytes/100 WBC (Bld) 20.0 % Critically low 20.5-60.0 [facility] Comment on above: Performed By: #### G TT3P #### [facility] [address] [place] [address] Dr. Isi Forbes MANUAL DIFF REQ NO Normal [facility] Comment on above: Performed By: #### G TT3P #### [facility] [address] [place] [address] Dr. Isi Forbes MCH (RBC) [Entitic mass] 31.1 pg Normal 26.7-34.0 [facility] Comment on above: Performed By: #### G TT3P #### [facility] [address] [place] [address] Dr. Isi Forbes MCHC (RBC) [Mass/Vol] 34.2 g/dL Normal 29.9-35.2 [facility] Comment on above: Performed By: #### G TT3P #### [facility] [address] [place] [address] Dr. Isi Forbes MCV (RBC) [Entitic vol] 90.9 fL Normal 81.0-99.0 [facility] Comment on above: Performed By: #### G TT3P #### [facility] [address] [place] [address] Dr. Isi Forbes MONO # 0.6 103/ul Normal 0.3-0.8 [facility] Comment on above: Performed By: #### G TT3P #### [facility] [address] [place] [address] Dr. Isi Forbes Monocytes/100 WBC (Bld) 6.0 % Normal 1.7-12.0 [facility] Comment on above: Performed By: #### G TT3P #### [facility] [address] [place] [address] Dr. Isi Forbes NEUT # 7.2 103/ul Critically high 1.4-6.5 [facility] Comment on above: Performed By: #### G TT3P #### [facility] [address] [place] [address] Dr. Isi Forbes Neutrophils/100 WBC (Bld) 71.7 % Normal 43.0-75.0 [facility] Comment on above: Performed By: #### G TT3P #### [facility] [address] [place] [address] Dr. Isi Forbes Platelet mean volume (Bld) [Entitic vol] 9.5 fL Normal 9.5-13.5 [facility] Comment on above: Performed By: #### G TT3P #### [facility] [address] [place] [address] Dr. Isi Forbes PLT 244 103/ul Normal 150-450 [facility] Comment on above: Performed By: #### G TT3P #### [facility] [address] [place] [address] Dr. Isi Forbes RBC 3.63 106/ul Critically low 4.20-5.40 [facility] Comment on above: Performed By: #### G TT3P #### [facility] [address] [place] [address] Dr. Isi Forbes WBC 10.0 103/ul Normal 4.0-11.0 [facility] Comment on above: Performed By: #### G TT3P #### [facility] [address] [place] [address] Dr. Isi MCDONNELL URINE PROFILEon 2 Bilirubin Ql (U) Negative Normal NEGATIVE [facility] Comment on above: Performed By: #### G TT3P #### [facility] [address] [place] [address] Dr. Isi Forbes Clarity (U) CLEAR Normal CLEAR [facility] Comment on above: Performed By: #### G TT3P #### [facility] [address] [place] [address] Dr. Isi Forbes Color (U) LT. YELLOW Normal YELLOW [facility] Comment on above: Performed By: #### G TT3P #### [facility] [address] [place] [address] Dr. Isi Forbes ERUAHJordyn A micrscopic examination will be performed if indicated. Normal [facility] Comment on above: Performed By: #### G TT3P #### [facility] [address] [place] [address] Dr. Isi Forbes Glucose Ql (U) Negative Normal NEGATIVE [facility] Comment on above: Performed By: #### G TT3P #### [facility] [address] [place] [address] Dr. Isi Forbes Hemoglobin Ql (U) Negative Normal NEGATIVE [facility] Comment on above: Performed By: #### G TT3P #### [facility] [address] [place] [address] Dr. Isi Forbes Ketones Ql (U) Negative Normal NEGATIVE [facility] Comment on above: Performed By: #### G TT3P #### [facility] [address] [place] [address] Dr. Isi Forbes LEUKOCYTES TRACE Abnormal NEGATIVE [facility] Comment on above: Performed By: #### G TT3P #### [facility] [address] [place] [address] Dr. Isi Forbes Nitrite Ql (U) Negative Normal NEGATIVE [facility] Comment on above: Performed By: #### G TT3P #### [facility] [address] [place] [address] Dr. Isi Forbes pH (U) 7.0 [pH] Normal 5-9 [facility] Comment on above: Performed By: #### G TT3P #### [facility] [address] [place] [address] Dr. Isi Forbes SPEC GRAVITY 1.020 Normal 1.005-<=1.025 [facility] Comment on above: Performed By: #### G TT3P #### [facility] [address] [place] [address] Dr. Isi Forbes UA PROTEIN Negative Normal NEGATIVE/ TRACE [facility] Comment on above: Performed By: #### G TT3P #### [facility] [address] [place] [address] Dr. Isi Forbes UR MICRO IND INDICATED Normal [facility] Comment on above: Performed By: #### G TT3P #### [facility] [address] [place] [address] Dr. Isi Forbes Urobilinogen Qn (U) 0.2 {Barb'U}/dL Normal 0.2 - 1. 0 [facility] Comment on above: Performed By: #### G TT3P #### [facility] [address] [place] [address] Dr. Isi Forbes PROF CHEM 8 (BAS METB)on Anion gap [Moles/Vol] 11.8 mmol/L Normal [facility] Comment on above: Performed By: #### G TT3P #### [facility] [address] [place] [address] Dr. Isi Forbes Calcium [Mass/Vol] 8.8 mg/dL Normal 8.5-10.1 [facility] Comment on above: Performed By: #### G TT3P #### [facility] [address] [place] [address] Dr. Isi Forbes Chloride [Moles/Vol] 102 mmol/L Normal 98-107 [facility] Comment on above: Performed By: #### G TT3P #### [facility] [address] [address] [address] Isi Forbes CO2 [Moles/Vol] 26.9 mmol/L Normal 21.0-32.0 [facility] Comment on above: Performed By: #### G TT3P #### [facility] [address] [address] [address] Isi Forbes Creatinine [Mass/Vol] 0.42 mg/dL Critically low 0.55-1.02 [facility] Comment on above: Performed By: #### G TT3P #### [facility] [address] [address] [address] Isi Forbes EGFR-AF NEPALESE >60 Normal >=60 [facility] Comment on above: Performed By: #### G TT3P #### [facility] [address] [place] [address] Dr. Isi Forbes EGFR-NON AF NEPALESE >60 Normal >=60 [facility] Comment on above: Performed By: #### G TT3P #### [facility] [address] [address] [address] Isi Forbes Glucose [Mass/Vol] 86 mg/dL Normal 74-106 [facility] Comment on above: Performed By: #### G TT3P #### [facility] [address] [address] [address] Isi Forbes Potassium [Moles/Vol] 3.7 mmol/L Normal 3.5-5.1 [facility] Comment on above: Performed By: #### G TT3P #### [facility] [address] [address] [address] Isi Forbes Sodium [Moles/Vol] 137 mmol/L Normal 136-145 [facility] Comment on above: Performed By: #### G TT3P #### [facility] [address] [address] [address] Isi Forbes Urea nitrogen [Mass/Vol] 9.0 mg/dL Normal 7.0-18.0 [facility] Comment on above: Performed By: #### G TT3P #### [facility] [address] [place] [address] Dr. Isi Forbes Urea nitrogen/Creatinine [Mass ratio] 21.4 mg/mg Normal [facility] Comment on above: Performed By: #### G TT3P #### [facility] [address] [place] [address] Dr. Isi Forbes URINE MICROSCOPIC ONLYon BACTERIA TRACE Abnormal NONE SEEN [facility] Comment on above: Performed By: #### C BC #### [facility] [address] [place] [address] Dr. Isi Forbes Bacteria identified Cx Nom (U) NOT INDICATED Normal [facility] Comment on above: Performed By: #### C BC #### [facility] [address] [place] [address] Dr. Isi Forbes CAST NONE SEEN Normal NONE SEEN [facility] Comment on above: Performed By: #### C BC #### [facility] [address] [place] [address] Dr. Isi Forbes Crystals LM Nom (Urine sed) NONE SEEN Normal NONE SEEN [facility] Comment on above: Performed By: #### C BC #### [facility] [address] [place] [address] Dr. Isi Forbes Epithelial cells LM Ql (Urine sed) MODERATE Abnormal NONE SEEN /RARE [facility] Comment on above: Performed By: #### C BC #### [facility] [address] [place] [address] Dr. Isi Forbes MUCOUS NONE SEEN Normal NONE SEEN [facility] Comment on above: Performed By: #### C BC #### [facility] [address] [place] [address] Dr. Isi Forbes RBC NONE SEEN Abnormal 0-2 [facility] Comment on above: Performed By: #### C BC #### [facility] [address] [place] [address] Dr. Isi Forbes WBC 2-5 Abnormal NONE SEEN [facility] Comment on above: Performed By: #### C BC #### [facility] [address] [place] [address] Dr. Isi Forbes HEP B SURFACE ANTIGEN SCREEN on 06-05-2022 HBsAg Screen Negative Normal Negative [facility] Comment on above: Performed By: #### H BSANS #### [facility] [address] [place] [address] Dr. Isi Forbes HEPATITIS C VIRUS AB W/ REFL EX QUANTon 06-05-2022 HCV AB 0.1 s/co ratio Normal 0.0-0.9 [facility] Comment on above: Performed By: #### G TT3P #### [facility] [address] [place] [address] Dr. Isi Forbes Interpretation: Comment Normal [facility] Comment on above: Result Comment: Nega tive Not infected with HCV, unless recent infection is suspected or other evidence exists to indicate HCV infection. Performed By: #### G TT3P #### [facility] [address] [place] [address] Dr. Isi Forbes HIV 1 AND 2 WITH REFLEXon HIV Screen 4th Generation wRfx Non-Reactive Normal Non Reactive [facility] Comment on above: Result Comment: HIV Negative HIV-1/HIV-2 antibodies and HIV-1 p24 antigen were NOT detected. There is no laboratory evidence of HIV infection. Performed By: #### C BC #### [facility] [address] [place] [address] Dr. Isi Forbes RPR QUANTon 06-05-2022 Rapid Plasma Reagin, Quant Non-Reactive Normal NonRea<1:1 [facility] Comment on above: Result Comment: Plea se Note: This test does not meet current guidelines for screening and diagnosis of syphilis. This test is intended for following treatment response in patients being treated for syphilis infection. To screen for syphilis infection, a reflex cascade that includes both RPR and a treponema-specific assay should be utilized, such as Treponema pallidum (Syphilis) Screening [place] (415153) or Rapid Plasma Reagin (RPR) Test With Reflex to Quantitative RPR and Confirmatory Treponema pallidum Antibodies (745006). Performed By: #### R PRQ #### [facility] [address] [place] [address] Dr. Isi Forbes RUBELLA AB IGGon 06-05-2022 Rubella Antibodies, IgG 6.87 index Normal Immune >0.99 [facility] Comment on above: Result Comment: Non- immune <0.90 Equivocal 0.90 - 0.99 Immune >0.99 Performed By: #### R PRQ #### [facility] [address] [place] [address] Dr. Isi Forbes CBC AUTO DIFFon 06-04-2022 BASO # 0.0 103/ul Normal 0.0-0.1 [facility] Comment on above: Performed By: #### C BC #### [facility] [address] [place] [address] Dr. Isi Forbes Basophils/100 WBC (Bld) 0.5 % Normal 0.2-2.0 [facility] Comment on above: Performed By: #### C BC #### [facility] [address] [place] [address] Dr. Isi Forbes EO # 0.1 103/ul Normal 0.0-0.7 [facility] Comment on above: Performed By: #### C BC #### [facility] [address] [place] [address] Dr. Isi Forbes Eosinophils/100 WBC (Bld) 1.5 % Normal 0.9-7.0 [facility] Comment on above: Performed By: #### C BC #### [facility] [address] [place] [address] Dr. Isi Forbes Erythrocyte distribution width (RBC) [Ratio] 12.1 % Normal 11.0-15.0 [facility] Comment on above: Performed By: #### C BC #### [facility] [address] [place] [address] Dr. Isi Forbes Hematocrit (Bld) [Volume fraction] 35.3 % Critically low 36.0-48.0 [facility] Comment on above: Performed By: #### C BC #### [facility] [address] [place] [address] Dr. Isi Forbes Hemoglobin (Bld) [Mass/Vol] 12.2 g/dL Normal 12.0-16.0 [facility] Comment on above: Performed By: #### C BC #### [facility] [address] [place] [address] Dr. Isi Forbes IG # 0.03 10e3/ul Normal 0.00-0.03 [facility] Comment on above: Performed By: #### C BC #### [facility] [address] [place] [address] Dr. Isi Forbes IG % 0.3 % Normal 0.0-0.5 [facility] Comment on above: Performed By: #### C BC #### [facility] [address] [place] [address] Dr. Isi Forbes LYMPH # 1.7 103/ul Normal 1.2-3.8 [facility] Comment on above: Performed By: #### C BC #### [facility] [address] [place] [address] Dr. Isi Forbes Lymphocytes/100 WBC (Bld) 20.1 % Critically low 20.5-60.0 [facility] Comment on above: Performed By: #### C BC #### [facility] [address] [place] [address] Dr. Isi Forbes MANUAL DIFF REQ NO Normal [facility] Comment on above: Performed By: #### C BC #### [facility] [address] [place] [address] Dr. Isi Forbes MCH (RBC) [Entitic mass] 30.7 pg Normal 26.7-34.0 [facility] Comment on above: Performed By: #### C BC #### [facility] [address] [place] [address] Dr. Isi Forbes MCHC (RBC) [Mass/Vol] 34.6 g/dL Normal 29.9-35.2 [facility] Comment on above: Performed By: #### C BC #### [facility] [address] [place] [address] Dr. Isi Forbes MCV (RBC) [Entitic vol] 88.9 fL Normal 81.0-99.0 [facility] Comment on above: Performed By: #### C BC #### [facility] [address] [address] [address] Isi Forbes MONO # 0.5 103/ul Normal 0.3-0.8 [facility] Comment on above: Performed By: #### C BC #### [facility] [address] [address] [address] Isi Forbes Monocytes/100 WBC (Bld) 5.4 % Normal 1.7-12.0 [facility] Comment on above: Performed By: #### C BC #### [facility] [address] [place] [address] Dr. Isi Forbes NEUT # 6.2 103/ul Normal 1.4-6.5 [facility] Comment on above: Performed By: #### C BC #### [facility] [address] [place] [address] Dr. Isi Forbes Neutrophils/100 WBC (Bld) 72.2 % Normal 43.0-75.0 [facility] Comment on above: Performed By: #### C BC #### [facility] [address] [place] [address] Dr. Isi Forbes Platelet mean volume (Bld) [Entitic vol] 9.4 fL Critically low 9.5-13.5 [facility] Comment on above: Performed By: #### C BC #### [facility] [address] [place] [address] Dr. Isi Forbes PLT 257 103/ul Normal 150-450 [facility] Comment on above: Performed By: #### C BC #### [facility] [address] [place] [address] Dr. Isi Forbes RBC 3.97 106/ul Critically low 4.20-5.40 [facility] Comment on above: Performed By: #### C BC #### [facility] [address] [place] [address] Dr. Isi Forbes WBC 8.6 103/ul Normal 4.0-11.0 [facility] Comment on above: Performed By: #### C BC #### [facility] [address] [place] [address] Dr. Isi Forbes CULTURE URINEon 06-04-2022 CULTURE URINE Culture Observations : LIGHT GROWTH OF MIXED GENITAL ALOK. NO POTENTIAL PATHOGENS SEEN. Normal [facility] Comment on above: Performed By: #### U RCX #### [facility] [address] [place] [address] Dr. Isi Forbes DRUG SCREEN RAPID (URINE)on 06-04-2022 AMP Negative Normal NEGATIVE [facility] Comment on above: Performed By: #### G TT3P #### [facility] [address] [place] [address] Dr. Isi Forbes BAR Negative Normal NEGATIVE [facility] Comment on above: Performed By: #### G TT3P #### [facility] [address] [place] [address] Dr. Isi Forbes BUP Negative Normal NEGATIVE [facility] Comment on above: Performed By: #### G TT3P #### [facility] [address] [place] [address] Dr. Isi Forbes BZO Negative Normal NEGATIVE [facility] Comment on above: Performed By: #### G TT3P #### [facility] [address] [place] [address] Dr. Isi Forbes BEATA Negative Normal NEGATIVE [facility] Comment on above: Performed By: #### G TT3P #### [facility] [address] [place] [address] Dr. Isi Forbes CUT-OFFS SEE BELOW Normal [facility] Comment on above: Result Comment: AMP (Amphetamine): 500ng/mL, BAR (Barbituates): 200 ng/mL, BZO (Benzodiazepines): 150 ng/mL, BUP (Buprenorphine): 10 ng/mL, BEATA (Cocaine): 150 ng/mL, mAMP (Methamphetamine): 500 ng/mL, MTD (Methadone): 200 ng/mL, OPI (Opiates): 100 ng/mL, OXY (Oxycodone): 100 ng/mL, PCP (Phencyclidine): 25 ng/mL, PPX (Propoxyphene): 300 ng/mL, THC (Cannabinoids): 50 ng/mL, TCA (Trycyclic Antidepressants): 300 ng/mL Performed By: #### G TT3P #### [facility] [address] [address] [address] Isi Forbes DRUG CUT HEADER DRUG CLASS TEST SYSTEM CUT-OFF CONCENTRATIONS ARE FOLLOWS: Normal [facility] Comment on above: Performed By: #### G TT3P #### [facility] [address] [address] [address] Isi Forbes mAMP Negative Normal NEGATIVE [facility] Comment on above: Performed By: #### G TT3P #### [facility] [address] [address] [address] Isi Forbes MTD Negative Normal NEGATIVE [facility] Comment on above: Performed By: #### G TT3P #### [facility] [address] [address] [address] Isi Forbes OPI Negative Normal NEGATIVE [facility] Comment on above: Performed By: #### G TT3P #### [facility] [address] [place] [address] Dr. Isi Forbes OXY Negative Normal NEGATIVE [facility] Comment on above: Performed By: #### G TT3P #### [facility] [address] [address] [address] Isi Forbes PCP Negative Normal NEGATIVE [facility] Comment on above: Performed By: #### G TT3P #### [facility] [address] [address] [address] Isi Forbes PPX Negative Normal NEGATIVE [facility] Comment on above: Performed By: #### G TT3P #### [facility] [address] [address] [address] Isi Forbes TCA Negative Normal NEGATIVE [facility] Comment on above: Performed By: #### G TT3P #### [facility] [address] [address] [address] Isi Forbes THC Positive Abnormal NEGATIVE [facility] Comment on above: Performed By: #### G TT3P #### [facility] [address] [place] [address] Dr. Isi Forbes GLYCOHEMOGLOBIN A1Con 2021 ADA RECOMMENDATION SEE BELOW Normal [facility] Comment on above: Result Comment: ADA RECOMMENDED LIMIT 4.0 - 6.0 ADA THERAPEUTIC TARGET < 7.0 ACTION SUGGESTED > 7.0 Performed By: #### A 1C #### [facility] [address] [place] [address] Dr. Isi Forbes Glucose [Mass/Vol] 111 mg/dL Normal [facility] Comment on above: Performed By: #### A 1C #### [facility] [address] [place] [address] Dr. Isi Forbes HbA1c (Bld) [Mass fraction] 5.5 % Normal 4.5-6.2 [facility] Comment on above: Performed By: #### A 1C #### [facility] [address] [place] [address] Dr. Isi Forbes AUTUMN BOX TEST PT SEND OUTo n 06-04-2022 SENT TO REF LAB 06/04/2022 Normal [facility] Comment on above: Performed By: #### R PRQ #### [facility] [address] [place] [address] Dr. Isi Forbes TYPE AND SCREENon 06-04-2022 TYPE AND SCREEN Negative Normal [facility] Comment on above: Performed By: #### T NS #### [facility] [address] [place] [address] Dr. Isi Forbes US PREG TVon 05-18-2022 US PREG TV EXAMINATION: US PREG TV HISTORY: Missed period COMPARISON: No relevant comparison available. FINDINGS: GESTATIONAL SAC: Present and normal appearing. YOLK SAC: Present and normal appearing. POLE: Present and normal appearing. CARDIAC: Present. UTERUS: Normal size and appearance. OVARIES: Right: Normal. Left: Corpus lutein cyst. CERVIX: 4.9 cm in length and closed. CUL-DE-SAC: Normal. OTHER: None. AGE BY LMP: 9 weeks 5 days FREDDIE BY LMP: 12/15/2022 AGE BY US CRL: 9 weeks 3 days FREDDIE BY US CRL: 12/17/2022 IMPRESSION: 1. Single live intrauterine . Electronically authenticated by: FREDY DICK Date: 2022-05-18 05:51 Normal [facility] HCG,Urineon 11-04-2020 Beta HCG ( test) Ql (U) Negative Normal [facility] Comment on above: Result Comment: PERF ORMED BY: [address] [place] [id number] PATHOLOGIST ZINC PLATING MACHINE OPERATOR MIKE LECHUGA M.D. Performed By: #### U HCG #### [place] [id number] [facility] Yassine 11-04-2020 L - -------- Specimen: [id number] Received: 11/04/20 Status: PRASAD Nick Num: [id number] Spec Type: Surgical Subm Dr: Esequiel Lyles MD Tissues: A Duodenum - Biopsy (DUODENAL BX) Procedures: HE Stain/2, Gross/Micro L4 -------- Patient Age/Sex Location Account Attending Physician -------- Debbi Prado 30/F [id number] Esequiel Lyles MD -------- SPEC NUM: RECD: 11/04/20 STATUS: PRASAD NICK NUM: [id number] LADAN: 11/04/[address] [facility] [address]: Esequiel Lyles MD ENTERED: 11/04/20 [facility] DR: SPEC TYPE: Surgical DEPT: S ORDERED: HE Stain/2, Gross/Micro L4 ORDERED: HE Stain/2, Gross/Micro L4 Pathological Diagnosis Duodenum, biopsy: - Duodenal mucosa with increased intraepithelial lymphocytes and focal villous blunting, see NOTE. NOTE: The biopsy shows mild to moderate mucosal lesion, suspicious for celiac disease. Clinical correlation with serologic studies is recommended for a definite diagnosis. Clinical Information Dyspepsia, BR BPR Gross Description Received in formalin labeled with the patient's name, number and duodenal biopsy rule out celiac are 2 orona tissue fragments, 0.3 cm and 0.4 cm. Entirely submitted in one cassette labeled A1. (SM/YJ) Microscopic Description Two glass slides with H E stained material have been examined. The microscopic findings support the above pathologic diagnosis. -------- Specimen: Received: 11/04/20 Status: PRASAD Sandoval Num: [id number] Spec Type: Surgical Subm Dr: Esequiel Lyles MD Tissues: A Duodenum - Biopsy (DUODENAL BX) Procedures: HE Stain/2, Gross/Micro L4 -------- Patient: Debbi Prado [id number] (Continued) -------- Specimen: Received: 11/04/20 (Continued) Signed (signature on file) Rhys Mckenzie MD 11/05/20 1050 -------- Specimen: Received: 11/04/20 Status: PRASAD Sandoval Num: [id number] Spec Type: Surgical Subm Dr: Esequiel Lyles MD Tissues: A Duodenum - Biopsy (DUODENAL BX) Procedures: HE Stain/2, Gross/Micro L4 -------- Patient: PradoJenna [id number] (Continued) -------- Specimen: Received: 11/04/20 (Continued) CPT Codes 31950 -------- -------- Specimen: Received: 11/04/20 Status: PRASAD Sandoval Num: [id number] Spec Type: Surgical Subm Dr: Esequiel Lyles MD Tissues: A Duodenum - Biopsy (DUODENAL BX) Procedures: HE Stain/2, Gross/Micro L4 -------- Patient: eDbbi Prado [id number] (Continued) -------- Signed (signature on file) Rhys Mckenzie MD 11/05/20 1050 Normal [facility] SARS-CoV-2 (COVID-19) RNA SARA+probe Ql (Unsp spec) Negative Normal Negative [facility] Comment on above: Order Comment: Healt hcare Worker?: N Result Comment: Refe rence: Negative Testing for SARS-CoV-2 by RT-PCR This test was developed and its performance characteristics determined by [employer] and validated at the [facility]. This test has not been FDA cleared or approved. This test has been authorized by FDA under an Emergency Use Authorization (EUA). This test has been validated in accordance with the FDA's Guidance Document (Policy for Diagnostics Testing in Laboratories Certified to Perform High Complexity Testing under CLIA prior to Emergency Use Authorization for Coronavirus Disease-2019 during the Public Health Emergency) issued on October 18, 2019. This test is only authorized for the duration of time the declaration that circumstances exist justifying the authorization of the emergency use of in vitro diagnostic tests for detection of SARS-CoV-2 virus and/or diagnosis of COVID-19 infection under section 564(b)(1) of the Act, 21 U.S.C. 360bbb-3(b)(1), unless the authorization is terminated or revoked sooner. PERFORMED BY: [place] [address] PATHOLOGIST ZINC PLATING MACHINE OPERATOR MIKE LECHUGA M.D. Performed By: #### C OVID-19 [facility] #### [address] Coding Summaryon 05-26-2020 Coding Summary CODING DATE: 05/26/2020 [facility] STATUS: Home PAYOR: [employer] ADMIT DX: REASON FOR VISIT DX: R09.81 Nasal congestion FINAL DX: PRINCIPAL: R09.81 Nasal congestion SECONDARY: PYMT PROC APC STAT DESCRIPTION DOCTOR NAME DATE NOTE: The code number assigned matches the documented diagnosis and / or procedure in the patient's chart. However, the narrative phrase printed from the coding software may appear abbreviated, or result in slightly different terminology. Coded By: Ashleigh Posada Date Saved: 05/26/2020 08:27 am [facility] Consent Formson 05-26-2020 Consent Forms [id number] 05-26-2020 Provider Orders [id number] [facility] Novel Coronavirus (CoVI D-19), SARA LCon 05-24-2020 SARS-CoV-2, SARA (COVID-19) LC Not Detected Not Detected [facility] Comment on above: Order Comment: [id number] [phone] Result Comment: This nucleic acid amplification test was developed and its performance characteristics determined by [employer]. Nucleic acid amplification tests include PCR and TMA. This test has not been FDA cleared or approved. This test has been authorized by FDA under an Emergency Use Authorization (EUA). This test is only authorized for the duration of time the declaration that circumstances exist justifying the authorization of the emergency use of in vitro diagnostic tests for detection of SARS-CoV-2 virus and/or diagnosis of COVID-19 infection under section 564(b)(1) of the Act, 21 U.S.C. 360bbb-3(b) (1), unless the authorization is terminated or revoked sooner. When diagnostic testing is negative, the possibility of a false negative result should be considered in the context of a patient's recent exposures and the presence of clinical signs and symptoms consistent with COVID-19. An individual without symptoms of COVID-19 and who is not shedding SARS-CoV-2 virus would expect to have a negative (not detected) result in this assay. Performed At: [facility] [address] [facility] [place] [id number] Rere Bejarano MD Ph:[phone] Performed By: #### 6 [id number] ####[facility] (DEFAULT)[address] [place] [address] Progress Note - Nurseon 11-0 Progress Note - Nurse Nasal swab perform ed without complication. Patient tolerated well. Education given. Patient verbalized understanding. [Electronically Signed on: 05/22/2020 11:25 EST] Genesis Ndiaye RN [Verified on: 05/22/2020 11:25 EST] Genesis Ndiaye RN [facility] Ambulatory Clinical Summaryo n 04-11-2020 Ambulatory Clinical Summary {[id number] [facility] Coding Summaryon 02-21-2020 Coding Summary CODING DATE: 02/21/2020 [facility] STATUS: Home PAYOR: León Myers ADMIT DX: REASON FOR VISIT DX: R09.81 Nasal congestion FINAL DX: PRINCIPAL: R09.81 Nasal congestion SECONDARY: PYMT PROC APC STAT DESCRIPTION DOCTOR NAME DATE NOTE: The code number assigned matches the documented diagnosis and / or procedure in the patient's chart. However, the narrative phrase printed from the coding software may appear abbreviated, or result in slightly different terminology. Coded By: Ashleigh Posada Date Saved: 02/21/2020 02:14 pm [facility] Consent Formson 02-18-2020 Consent Forms [id number] .00OTGTIFF [facility] 2019 Novel Coronavirus (CoVI D-19), SARA LCon 02-16-2020 SARS-CoV-2, SARA (COVID-19) LC Not Detected Not Detected [facility] Comment on above: Result Comment: This test was developed and its performance characteristics determined by [employer]. This test has not been FDA cleared or approved. This test has been authorized by FDA under an Emergency Use Authorization (EUA). This test is only authorized for the duration of time the declaration that circumstances exist justifying the authorization of the emergency use of in vitro diagnostic tests for detection of SARS-CoV-2 virus and/or diagnosis of COVID-19 infection under section 564(b)(1) of the Act, 21 U.S.C. 360bbb-3(b)(1), unless the authorization is terminated or revoked sooner. When diagnostic testing is negative, the possibility of a false negative result should be considered in the context of a patient's recent exposures and the presence of clinical signs and symptoms consistent with COVID-19. An individual without symptoms of COVID-19 and who is not shedding SARS-CoV-2 virus would expect to have a negative (not detected) result in this assay. Performed At: [facility] [address] [facility] [place] [id number] Rere Bejarano MD Ph:[phone] Performed By: #### 6 [id number] ####[facility] (DEFAULT)[address] [place] [address] Provider Orderson 02-15-2020 Provider Orders [id number] .[facility] 02-14-2020 Provider Orders [id number] .00[facility] IgA, Quant.on 02-13-2020 IgA [Mass/Vol] 202 mg/dL 87-352 [facility] Comment on above: Result Comment: Perf ormed at: [facility] [address] [id number] PhD Dennis Toussaint Performed By: #### 2 462489, 1626744, 81620516, 7822490, 70987012, 16120583, 59067294 ####[place] [address] [place] [address] t-TRANSGLUTAMINASE IgAon tTG IgA Qn (S) <2 0-3 [facility] Comment on above: Result Comment: Nega tive 0 - 3 Weak Positive 4 - 10 Positive >10 Tissue Transglutaminase (tTG) has been identified as the endomysial antigen. Studies have demonstr- ated that endomysial IgA antibodies have over 99% specificity for gluten sensitive enteropathy. Performed at: [address] [id number] PhD Dennis Toussaint Performed By: #### 2 731151, 3331676, 88833467, 1536556, 59414908, 71695447, 86703837 #### [facility] [address] [place] [address] Coding Summary.on 02-12-2020 Coding Summary. 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 However, the narrative phrase printed from the coding software may appear abbreviated, or result in slightly different terminology. Coded By: Nicole Quinonez CphT Date Saved: 02/12/2020 09:01 am Normal [facility] Auto Diffon 02-11-2020 Basophils/100 WBC (Bld) 0.5 % Normal 0.0-2.0 [facility] Comment on above: Order Comment: Order Added by Discern Expert. Performed By: #### 2 443770, 1211511, 59668122, 3747342, 59107303, 07669292, 60323168 #### [facility] [address] [place] [address] Basophils/Leukocytes Auto (Bld) [Pure # fraction] 0.0 E9/L Normal 0.0-0.2 [facility] Comment on above: Order Comment: Order Added by Discern Expert. Performed By: #### 2 441179, 4128783, 24749198, 7994561, 33226597, 54831010, 21597160 #### [facility] [address] [place] [address] Eosinophils/100 WBC (Bld) 1.7 % Normal 0.0-8.0 [facility] Comment on above: Order Comment: Order Added by Discern Expert. Performed By: #### 2 581898, 9761044, 90090704, 7659324, 76813819, 99071603, 66424127 #### [facility] [address] [place] [address] Eosinophils/Leukocyte s Auto (Bld) [Pure # fraction] 0.2 E9/L Normal 0.0-0.5 [facility] Comment on above: Order Comment: Order Added by Discern Expert. Performed By: #### 2 935307, 0917680, 21349001, 6213643, 74956491, 19402723, 32664678 #### [facility] [address] [place] [address] Lymphocytes/100 WBC (Bld) 21.9 % Normal 14.0-50.0 [facility] Comment on above: Order Comment: Order Added by Discern Expert. Performed By: #### 2 767992, 6470618, 64071660, 5736945, 88738721, 62732017, 76802049 #### [facility] [address] [place] [address] Lymphocytes/Leukocyte s Auto (Bld) [Pure # fraction] 2.0 E9/L Normal 1.0-4.0 [facility] Comment on above: Order Comment: Order Added by Discern Expert. Performed By: #### 2 370900, 3357049, 65183403, 0235724, 18225175, 86592365, 56996235 #### [facility] [address] [place] [address] Monocytes/100 WBC (Bld) 7.6 % Normal 4.0-14.0 [facility] Comment on above: Order Comment: Order Added by Lila Expert. Performed By: #### 2 980175, 5267714, 20444717, 7129083, 91394546, 38149619, 16203968 #### [facility] [address] [place] [address] Monocytes/Leukocytes Auto (Bld) [Pure # fraction] 0.7 E9/L Normal 0.2-1.0 [facility] Comment on above: Order Comment: Order Added by Discern Expert. Performed By: #### 2 820056, 2389538, 74489057, 2030880, 42306933, 96218564, 21064837 #### [facility] [address] [place] [address] Neutrophils/100 WBC (Bld) 68.3 % Normal 36.0-75.0 [facility] Comment on above: Order Comment: Order Added by Discern Expert. Performed By: #### 2 871816, 5051279, 94048503, 4553400, 30464343, 76022974, 30024010 #### [facility] [address] [place] [address] Neutrophils/Leukocyte s Auto (Bld) [Pure # fraction] 6.2 E9/L Normal 2.0-7.5 [facility] Comment on above: Order Comment: Order Added by Discern Expert. Performed By: #### 2 091669, 1674856, 76737433, 1196633, 08645567, 61872843, 44828595 #### [facility] [address] [place] [address] CBC w/ Auto Diffon 0 Erythrocyte distribution width (RBC) [Ratio] 13.1 % Normal 10.9-14.2 [facility] Comment on above: Performed By: #### 2 968966, 5690962, 17022046, 4989268, 66407513, 79930861, 91413609 #### [facility] [address] [place] [address] Hematocrit (Bld) [Volume fraction] 41.8 % Normal 34.0-46.0 [facility] Comment on above: Performed By: #### 2 368403, 1078380, 60928220, 7860335, 21329055, 87402767, 73952655 #### [facility] [address] [place] [address] Hemoglobin (Bld) [Mass/Vol] 13.9 g/dL Normal 12.0-16.0 [facility] Comment on above: Performed By: #### 2 506736, 9677793, 54315801, 7657110, 09989409, 13447829, 20686156 #### [facility] [address] [place] [address] MCH (RBC) [Entitic mass] 30.7 pg Normal 27.0-34.0 [facility] Comment on above: Performed By: #### 2 041460, 9244250, 50713430, 7088486, 74650734, 15766116, 30919641 #### [facility] [address] [place], [place] [address] MCHC (RBC) [Mass/Vol] 33.4 g/dL Normal 31.4-36.0 [facility] Comment on above: Performed By: #### 2 515617, 5028477, 80338115, 5800083, 96580920, 85007363, 46787036 #### [facility] [address] [place], [place] [address] MCV (RBC) [Entitic vol] 92.1 fL Normal 80.0-100.0 [facility] Comment on above: Performed By: #### 2 161101, 0506488, 78348480, 1854560, 46966793, 94218773, 77484495 #### [facility] [address] [place] [address] Platelet mean volume (Bld) [Entitic vol] 7.7 fL Normal 6.4-10.8 [facility] Comment on above: Performed By: #### 2 233253, 1276032, 00377798, 1643168, 78187188, 33373821, 60778504 #### [facility] [address] [place] [id number] Platelets (Bld) [#/Vol] 338.0 E9/L Normal 150.0-500.0 [facility] Comment on above: Performed By: #### 2 956450, 3060557, 67444741, 2443202, 74601170, 43176323, 97612466 #### [facility] [address] [place] [address] RBC (Bld) [#/Vol] 4.5 E12/L Normal 4.3-5.9 [facility] Comment on above: Performed By: #### 2 572036, 2861080, 03215664, 6881903, 34684682, 16554644, 14044088 #### [facility] [address] [place] [address] WBC corrected for nucl RBC Auto (Bld) [#/Vol] 9.1 E9/L Normal 4.0-11.0 [facility] Comment on above: Performed By: #### 2 461526, 0628619, 80654210, 3930775, 29602748, 76888691, 57317557 #### [facility] [address] [place] [address] CMPon 02-11-2020 Albumin [Mass/Vol] 1.4 g/dL Normal 1.1-2.2 [facility] Comment on above: Performed By: #### 2 121620, 1854982, 51475780, 4464460, 42190018, 04864147, 28606810 #### [facility] [address] [place] [address] Albumin [Mass/Vol] 4.5 g/dL Normal 3.3-5.0 [facility] Comment on above: Performed By: #### 2 090795, 8037384, 47667496, 1834533, 61601827, 36338264, 70603060 #### [facility] [address] [place] [address] ALP [Catalytic activity/Vol] 58 Int._Unit/L Normal 21-98 [facility] Comment on above: Performed By: #### 2 195712, 9080075, 92366022, 2446728, 75346121, 75808785, 40026621 #### [facility] [address] [place] [address] ALT No additional P-5'-P [Catalytic activity/Vol] 33 Int._Unit/L Normal 6-46 [facility] Comment on above: Performed By: #### 2 520704, 6014250, 60575959, 9697497, 02079988, 07380078, 51594186 #### [facility] [address] [place] [address] Anion gap [Moles/Vol] 12 mmol/L Normal 6-16 [facility] Comment on above: Performed By: #### 2 099714, 7837627, 18371291, 2446045, 73680833, 32015245, 27540424 #### [facility] [address] [place] [address] AST [Catalytic activity/Vol] 22 Int._Unit/L Normal 5-43 [facility] Comment on above: Performed By: #### 2 542614, 2137637, 14679296, 1443831, 90699317, 46515000, 18859391 #### [facility] [address] [place] [address] Bilirubin [Mass/Vol] 0.5 mg/dL Normal 0.0-1.1 [facility] Comment on above: Performed By: #### 2 541114, 2928033, 07934438, 7419819, 13250592, 30408003, 45543276 #### [facility] [address] [place] [address] Calcium [Mass/Vol] 9.2 mg/dL Normal 8.9-11.1 [facility] Comment on above: Performed By: #### 2 818415, 7319073, 80728535, 3824426, 15478697, 74663447, 02065357 #### [facility] [address] [place] [address] Chloride [Moles/Vol] 106 mmol/L Normal 101-111 [facility] Comment on above: Performed By: #### 2 490294, 9861553, 44638881, 4100310, 54483458, 10296483, 58368111 #### [facility] [address] [place] [address] CO2 [Moles/Vol] 23 mmol/L Normal 21-31 [facility] Comment on above: Performed By: #### 2 480436, 6426233, 23336213, 3488679, 14387275, 94826291, 07564993 #### [facility] [address] [place] [address] Creatinine [Mass/Vol] 0.6 mg/dL Normal 0.5-1.3 [facility] Comment on above: Performed By: #### 2 575316, 3298493, 51210009, 7376188, 00849973, 42574069, 74667386 #### [facility] [address] [place] [address] Globulin (S) [Mass/Vol] 3.3 g/dL Normal 1.4-4.0 [facility] Comment on above: Performed By: #### 2 828599, 0746299, 98509544, 5163824, 39616743, 18865064, 34159917 #### [facility] [address] [place] [address] Glucose [Mass/Vol] 94 mg/dL Normal 55-199 [facility] Comment on above: Result Comment: If t his glucose result represents a fasting glucose, interpretation should refer to the following reference range: 55-99 mg/dL Performed By: #### 2 131528, 2937315, 82753328, 5882927, 96246554, 44856214, 40773114 #### [facility] [address] [place] [address] Potassium [Moles/Vol] 3.9 mmol/L Normal 3.5-5.3 [facility] Comment on above: Performed By: #### 2 945022, 4785390, 38282793, 0010410, 57871172, 65911621, 95258580 #### [facility] [address] [place] [address] Protein [Mass/Vol] 7.8 g/dL Normal 6.0-7.8 [facility] Comment on above: Performed By: #### 2 159342, 8497263, 73718228, 1296369, 06083567, 27880726, 38797422 #### [facility] [address] [place] [address] Sodium [Moles/Vol] 137 mmol/L Normal 135-145 [facility] Comment on above: Performed By: #### 2 002933, 5657206, 48739495, 9288605, 62204959, 35121815, 36956736 #### [facility] [address] [place] [address] Urea nitrogen [Mass/Vol] 12 mg/dL Normal 5-21 [facility] Comment on above: Performed By: #### 2 712197, 2214787, 91829802, 0695215, 93408626, 18589727, 66648620 #### [facility] [address] [place] [address] Urea nitrogen/Creatinine [Mass ratio] 20 No Units Normal 10-20 [facility] Comment on above: Performed By: #### 2 771390, 3547423, 72482372, 2749360, 54231761, 45325790, 81669692 #### [facility] [address] [place] [address] Coding Summaryon 02-11-2020 Coding Summary CODING DATE: 02/11/2020 [facility] STATUS: Home PAYOR: [employer] ADMIT DX: REASON FOR VISIT DX: R19.7 Diarrhea, unspecified FINAL DX: PRINCIPAL: R19.7 Diarrhea, unspecified SECONDARY: PYMT PROC APC STAT DESCRIPTION DOCTOR NAME DATE NOTE: The code number assigned matches the documented diagnosis and / or procedure in the patient's chart. However, the narrative phrase printed from the coding software may appear abbreviated, or result in slightly different terminology. Coded By: Connie Akers Date Saved: 02/11/2020 08:49 am [facility] Consent for Treatmenton 01-16 Consent for Treatment [id number]:127 Normal [facility] Gastroenterology Office/Clin ic Noteon 02-11-2020 Gastroenterology Office/Clinic Note Chief Complaint nausea diarrhea HPI Staff This is a29 year old female who presents today for a self referral for nausea and diarrhea. History of Present Illness 29 years old white female with history of IBS, referred herself to be evaluated for nausea, vomiting, abdominal cramps and diarrhea, she was diagnosed with IBS/diarrhea 3 years ago in my office and started on Bentyl and probiotics as needed at that time, now she reports worsening of sporadic nausea and nonbloody emesis, associated with crampy abdominal pain, bloating and sometimes diarrhea. She has been using marijuana daily for years, denies any melena, occasional rectal bleeding, denies any weight loss, she does have anxiety and she was started recently on antianxiety medication by her primary care physician 3 weeks ago but patient does not know the name of her medications Review of Systems PHQ Score Initial Depression Screen Score: 1 Constitutional: no fever, no chills, no sweats, no weakness Skin: no Jaundice, no rash, no lesions, no petechiae ENMT: no ear pain, no sore throat, no congestion, no hoarseness Respiratory: no shortness of breath, no cough, no orthopnea, no wheezing Cardiovascular: no chest pain, no palpitations, no edema Gastrointestinal: mild nausea, no vomiting, no diarrhea, no Constipation noGI bleeding yes abd pain no dysphagia no bloating no heartburn Genitourinary: no dysuria, no hematuria, no discharge, no pain Musculoskeletal: no back pain, no trauma Neurologic: no numbness, no sleeping problems Additional ROS info: Except as noted in the above Review of Systems and in the History of Present Illness all other systems have been reviewed and are negative or noncontributory. Physical Exam Vitals & Measurements T: 36.5 ?C (Temporal Artery) HR: 95(Peripheral) RR: 16 BP: 113/76 HT: 167.64 cm WT: 90.4 kg BMI: 32.17 Constitutional: Appearance: well developed Skin: Inspection: no rashes, ulcers, icterus , or telangiectasias. Eyes: Conjunctivae/lids: normal conjunctivae and lids. ENMT: Hearing: within normal limits. Lips/Teeth/Gums: normal oral mucosa Neck: Neck: normal motion, central trachea. Respiratory: Percussion: thorax normoresonant. Auscultation: normal breath sounds; no rubs, wheezes, rale or ronchi. Cardiovascular: Auscultation: normal rhythm, S1 and S2; no rubs, murmurs or gallop. Peripheral: no edema Gastrointestinal/Abdo men: Abdomen: normal consistency and bowel sounds; no tenderness or masses. Liver/Spleen: normal size and consistency, not palpable. Rectal: deferred Musculoskeletal: Gait/station: normal gait Assessment/Plan 1. Nausea and vomiting (R11.2: Nausea with vomiting, unspecified) Possibly related to cyclic vomiting syndrome given her ongoing marijuana use, will start Zofran, patient was advised to stop using marijuana completely Ordered: ondansetron, 4 mg = 1 tab(s), Oral, q8hr, # 20 tab(s), Refills(s) 1, Pharmacy: [facility]/pharmacy #[id number], 167.64, cm, 02/11/20 15:12:00 EDT, Height/Length Measured, 90.4, kg, 02/11/20 15:12:00 EDT, Weight Measured 2. Chronic diarrhea (K52.9: Noninfective gastroenteritis and colitis, unspecified) Likely secondary to rectal bowel syndrome/diarrhea, will rule out celiac disease and inflammatory etiology Ordered: CBC w/ Auto Diff Comprehensive Metabolic Panel IgA, Quant. Sedimentation Rate Automated t-Transglutaminase IgA 3. Generalized abdominal pain (R10.84: Generalized abdominal pain) Likely secondary to IBS Ordered: dicyclomine, 10 mg = 1 cap(s), Oral, QID, X 30 day(s), # 120 cap(s), Refills(s) 11, Pharmacy: [facility]/pharmacy #[id number], 167.64, cm, 02/11/20 15:12:00 EDT, Height/Length Measured, 90.4, kg, 02/11/20 15:12:00 EDT, Weight Measured CBC w/ Auto Diff Comprehensive Metabolic Panel IgA, Quant. Sedimentation Rate Automated t-Transglutaminase IgA 4. Irritable bowel syndrome with diarrhea (K58.0: Irritable bowel syndrome with diarrhea) Started on antianxiety medication recently by her primary care physician 5. Bacterial overgrowth syndrome (K63.89: Other specified diseases of intestine) Will start Cipro, advised to take probiotics Ordered: ciprofloxacin, 500 mg = 1 tab(s), Oral, BID, X 10 day(s), # 20 tab(s), Refills(s) 0, Pharmacy: [facility]/pharmacy #[id number], 167.64, cm, 02/11/20 15:12:00 EDT, Height/Length Measured, 90.4, kg, 02/11/20 15:12:00 EDT, Weight Measured 6. Cyclic vomiting syndrome (R11.15: Cyclical vomiting syndrome unrelated to migraine) Advised to stop marijuana use Follow-up With When Contact Information Emma GUTIERREZ MD Within 2 weeks [facility] [address] [place] [address]- Additional Instructions: Patient Education Nausea, Adult Problem List/Past Medical History Ongoing Smoker Historical No qualifying data Medications Bentyl 10 mg Cap, 10 mg= 1 cap(s), Oral, QID, 11 refills Cipro 500 mg Tab, 500 mg= 1 tab(s), Oral, BID Zofran, 4 mg, Oral, TID, PRN Zofran 4 mg Tab, 4 mg= 1 tab(s), Oral, q8hr, 1 refills Allergies Zithromax Z-Дмитрий (Itching) Social History Tobacco 4 or less cigarettes(less than 1/4 pack)/day in last 30 days, Smoker, current status unknown Tobacco Use:. Yes, 02/11/2020 Family History Family history is negative Normal [facility] Comment on above: Result Comment: Elec tronically Signed By: Emma GUTIERREZ MD\.br\Date and Time Signed: 02/11/20 15:55 EDT Patient Educationon 02-11-20 20 Patient Education Family Medicine Nausea, Adult Nausea is the feeling that you have an upset stomach or have to vomit. Nausea by itself is not likely a serious concern, but it may be an early sign of more serious medical problems. As nausea gets worse, it can lead to vomiting. If vomiting develops, there is the risk of dehydration. CAUSES ? Viral infections. ? Food poisoning. ? Medicines. ? . ? Motion sickness. ? Migraine headaches. ? Emotional distress. ? Severe pain from any source. ? Alcohol intoxication. HOME CARE INSTRUCTIONS ? Get plenty of rest. ? Ask your caregiver about specific rehydration instructions. ? Eat small amounts of food and sip liquids more often. ? Take all medicines as told by your caregiver. SEEK MEDICAL CARE IF: ? You have not improved after 2 days, or you get worse. ? You have a headache. SEEK IMMEDIATE MEDICAL CARE IF: ? You have a fever. ? You faint. ? You keep vomiting or have blood in your vomit. ? You are extremely weak or dehydrated. ? You have dark or bloody stools. ? You have severe chest or abdominal pain. MAKE SURE YOU: ? Understand these instructions. ? Will watch your condition. ? Will get help right away if you are not doing well or get worse. Document Released: 08/11/2005 Document Revised: 03/28/2013 Document Reviewed: 03/15/2012 ExitCare? Patient Information ?2013 [employer]. Normal [facility] Sed Rate Automatedon 020 ESR (Bld) [Velocity] 10 mm/h Normal 0-34 [facility] Comment on above: Performed By: #### 2 [id number] #### [facility] [address] [place] [address] eGFRon 02-11-2020 GFR/1.73 sq M predicted among blacks MDRD (S/P/Bld) [Vol rate/Area] mL/min/{1.73_m2} Normal >=59 [facility] Comment on above: Order Comment: Order added by Discern Expert. Result Comment: eGFR is race adjusted. AA=. Performed By: #### 2 [id number] #### [facility] [address] [place] [address] GFR/1.73 sq M predicted among non-blacks MDRD (S/P/Bld) [Vol rate/Area] mL/min/{1.73_m2} Normal >=59 [facility] Comment on above: Order Comment: Order added by Discern Expert. Result Comment: Field Technical Assistant eulogio kidney disease could be indicated at eGFR's of less than 60 mL/min/1.73m2. Kidney failure is indicated at less than 15 mL/min/1.73m2. Performed By: #### 2 [id number] #### [facility] [address] [place] [address] Historical Records Officeon 02-08-2020 Historical Records Office [id number]. 00CD:127 Normal [facility] - Immunology/Serology Re sultson 01-31-2020 Lab - Immunology/Serology Results [id number] 1.00OTGTIFF Normal [facility] SARS-CoV-2 (COVID-19) PCRon 01-30-2020 COVID-19 PCR Not Detected Normal Not Detected [facility] Comment on above: Order Comment: Sent to [facility] Performed By: #### 6 [id number] ####[facility] (DEFAULT)[address] [place] [address] Provider Orderson 01-29-2020 Provider Orders [id number] .00OTGTIFF Normal [facility] Encounters Encounter Date Encounter Type Care Provider Facility Start: 11-25-2023 End: 11-25-2023 ambulatory BECKI GARRETT Not Available Start: 10-06-2023 End: 10-06-2023 ambulatory BECKI GARRETT Not Available Start: 08-08-2023 End: 08-08-2023 ambulatory BECKI MAE Not Available Start: 06-23-2023 End: 06-23-2023 ambulatory BECKI MAE Not Available Start: 12-09-2022 End: 12-11-2022 Evaluation and management of inpatient DR BECKI MAE . Facility:[facility] Start: 11-24-2022 End: 11-24-[address] MARIO MARTINEZ . Facility:[facility] Start: 10-27-2022 End: 10-28-[address] MARIO MARTINEZ . Facility:[facility] Start: 10-26-2022 End: 10-27-[address] MARIO MARTINEZ . Facility:[facility] Start: 10-25-2022 End: 10-26-[address] MARIO MARTINEZ . Facility:[facility] Start: 09-27-2022 End: 09-28-[address] MARIO MARTINEZ . Facility:[facility] Start: 08-04-2022 End: 08-05-[address] MARIO MARTINEZ . Facility:[facility] Start: 07-20-2022 End: 07-20-[address] MARIO MARTINEZ . Facility:[facility] Start: 06-16-2022 End: 06-16-[address] MARKUS GERARD Facility:[facility] Start: 06-04-2022 End: 06-05-[address] MARIO MARTINEZ . Facility:[facility] Start: 06-02-2022 End: 06-03-[address] MARIO MARTINEZ . Facility:[facility] Start: 05-17-2022 End: 05-18-[address] MARIO MARTINEZ . Facility:[facility] Procedures Date Procedure Procedure Detail Performing Clinician Start: 12-09-2022 Extraction of Produc ts of Conception, Low Cervical, Open Approach DR MARIO MARTINEZ . Payers Date Payer Category Payer Unknown [id number] 2.16.84 [id number] 1988 Unknown [id number] 2.16.84 [id number] 1988 Unknown [id number] 2.16.84 0.1.113116.3.579.2.593 1988 Unknown [id number] 2.16.84 0.1.939054.3.579.2.593 1988 Unknown [id number] 2.16.84 0.1.393204.3.579.2.593 1988 Unknown [id number] 2.16.84 0.1.450263.3.579.2.593 1988 Unknown [id number] 2.16.84 0.1.536951.3.579.2.593 1988 Unknown [id number] 2.16.84 0.1.234943.3.579.2.593 1988 Unknown [id number] 2.16.84 0.1.186311.3.579.2.593 1988 Unknown [id number] 2.16.84 0.1.245729.3.579.2.593 1988 Unknown [id number] 2.16.84 0.1.128622.3.579.2.593 1988 Unknown [id number] 2.16.84 0.1.020693.3.579.2.1259 1988 Unknown [id number] 2.16.84 0.1.859411.3.579.2.1259 1988 Unknown [id number] 2.16.84 0.1.457684.3.579.2.1259 1988 Unknown [id number] 2.16.840 .1.231686.3.579.2.1259 1959 Self-pay [id number] 1959 Unknown [id number] Unknown [id number] 2.16.84 0.1.941254.3.579.2.593 Clinical Note 12-09-2022 Note Date & Type Note Facility 12-09-2022 Note OPERATIVE NOTE OPERATION DATE: 12/09/2022 PROCEDURE: Primary low transverse section. PREOPERATIVE DIAGNOSIS: 1. Intrauterine at 39 weeks. 2. 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 POSTOPERATIVE DIAGNOSIS: 1. Intrauterine at 39 weeks. 2. 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 ANESTHESIA: Spinal with Duramorph. SURGEON: Becki Mae D.O. CHAIN DYER: DANIELA Koch URINE OUTPUT: Yellow and clear. BLOOD LOSS: 575 mL. FINDING: Viable male infant. Apgars 9 at 1, 9 at 5. Weight unknown at this time. SPECIMEN: Placenta. PROCEDURE: Patient was taken back to the Operating Room where she was given a spinal anesthesia with Duramorph without difficulty. She was prepped and draped in the normal sterile fashion. A Pfannenstiel skin incision was then made 2 cm above the symphysis pubis and carried down to underlying rectus fascia using a Bovie. The fascia was incised in the midline and extended laterally using Oshea scissors. Two Harriett clamps were placed on the superior aspect of the fascia and dissected off the underlying rectus muscles. The same was performed on the inferior aspect as well. The muscles were then in the midline. Peritoneum was identified and entered bluntly. The peritoneum was then extended superiorly and inferiorly with good visualization of the bladder. The bladder blade was inserted. A low transverse incision was made on the patient's uterus and extended laterally digitally. The was then delivered atraumatically after the bladder blade was removed in the cephalic position. The cord was clamped and cut. Cord blood was obtained. The infant was handed off to awaiting team. The patient's placenta was spontaneously delivered. The uterus was then exteriorized. The uterus was cleared of all clots and debris. The bladder blade was reinserted. The patient's uterine incision was closed using #0 Vicryl in a running lock fashion. Excellent hemostasis was assured. The uterus was then returned to the patient's abdomen. The patient's abdomen was copiously irrigated using warm saline. Peritoneal gutters were cleared of all clots and debris. Again excellent hemostasis was assured. The patient's peritoneum was closed using 3-0 Vicryl in a running fashion. The patient's fascia was closed using #0 Vicryl in a running fashion. The patient's skin was closed using 4-0 Vicryl subcuticularly. The patient tolerated the procedure well. Sponge, lap, and needle counts were correct x2. The patient was taken to the Recovery Room in stable condition. [facility] Summary Purpose Family History No Family History Records FoundNo Family History Records FoundNo Family History Records FoundNo Family History Records FoundNo Family History Records Found Advance Directives No Advanced Directives Records FoundNo Advanced Directives Records FoundNo Advanced Directives Records FoundNo Advanced Directives Records FoundNo Advanced Directives Records Found Additional Source Comments INFORMATION SOURCE (unrecogn ized section and content) DATE CREATED AUTHOR 04/24/2020 [facility] DATE CREATED AUTHOR AUTHOR'S ORGANIZ ATION 05/26/2020 [facility] DATE CREATED AUTHOR AUTHOR'S ORGANIZ ATION 08/02/2021 [facility] DATE CREATED AUTHOR AUTHOR'S ORGANIZ ATION 12/24/2022 [facility] DATE CREATED AUTHOR AUTHOR'S ORGANIZ ATION 11/27/2023 [facility] EPIC FOR RECORDS PERTAINING TO PATIENTS WHO ARE OR HAVE BEEN ENROLLED IN A CHEMICAL DEPENDENCY/SUBSTANCEABUSE PROGRAM, SOME INFORMATION MAY BE OMITTED. This clinical summary was aggregated from multiple sources. Caution should be exercised in using it in the provision of clinical care. This summary normalizes information from multiple sources, and as a consequence, information in this document may materially change the coding, format and clinical context of patient data. In addition, data may be omitted in some cases. CLINICAL DECISIONS SHOULD BE BASED ON THE PRIMARY CLINICAL RECORDS. [employer] provides no warranty or guarantee of the accuracy or completeness of information in this document.
[2023-12-20 11:56] LABS: Basophils Absolute Auto 0.1 10^3/uL (0.0-0.1); Basophils Percent Auto 0.6 % (0.2-2.0); Eosinophils Absolute Auto 0.2 10^3/uL (0.0-0.7); Eosinophils Percent Auto 1.8 % (0.9-7.0); Hematocrit 34.7 % (36.0-48.0); Hemoglobin 11.3 g/dL (12.0-16.0); Immature Granulocytes Abs Auto 0.06 10^3/uL (0.00-0.03); Immature Granulocytes Pct Auto 0.5 % (0.0-0.5); Lymphocytes Absolute Auto 2.4 10^3/uL (1.2-3.8); Lymphocytes Percent Auto 21.5 % (20.5-60.0); Mean Corpuscular HGB Conc 32.6 g/dL (29.9-35.2); Mean Corpuscular Volume 85.9 fL (81.0-99.0); Mean Platelet Volume 9.7 fL (9.5-13.5); Monocytes Absolute Auto 0.8 10^3/uL (0.3-0.8); Monocytes Percent Auto 7.2 % (1.7-12.0); Neutrophils Absolute Auto 7.6 10^3/uL (1.4-6.5); Neutrophils Percent Auto 68.4 % (43.0-75.0); Platelet Count 312 10^3/uL (150-450); Red Blood Count 4.04 10^6/uL (4.20-5.40); Red Cell Distribution Width 13.8 % (11.0-15.0)
[2023-12-20 15:26] LABS: Estimated Average Glucose 111 mg/dL; Glycohemoglobin A1C 5.5 % (4.5-6.2)
[2023-12-21 06:10] LABS: HBsAg Screen Negative (Negative); HCV Ab Non Reactive (Non Reactive); HIV Ab/p24 Ag Screen Non Reactive (Non Reactive); Rubella Antibodies, IgG 4.74 index (Immune >0.99)
[2023-12-21 13:16] LABS: Rapid Plasma Reagin, Quant Non Reactive titer (NonRea<1:1)
== END 2023-12-20 10:42 | disposition home or self-care (01) ==
LOC: LAB 10:44
PROVIDERS: PCP Family Medicine; Visit Provider Obstetrics & Gynecology
DX: Z36.0 Encounter for antenatal screening for chromosomal anomalies (principal); N92.6 Irregular menstruation, unspecified
CPT/HCPCS: 36415; 83036; 85025; 86592; 86762; 86803; 86850; 86900; 86901; 87086; 87340; 87389

== ENCOUNTER 2024-01-12 19:43 | Outpatient (REF) | payer BC, SELFPAY ==
--- OUTSIDE RECORDS SUMMARY | 2024-01-12 19:47 | XMS_ITS ---
Patient Summarization (C-CDA 2.1 CCD) Created on: January 12, 2024 DEBBI PRADO : 1990 Sex: Female Author Organization Sample organization Care Team Providers Care Crank Hand Name Role Phone MORTEZAK ., DR MARTIN [...] DR NONE LISTED Primary Care Unavaila ble WEST, [...] [employer] Unavailabl e REINECK, DR MARKUS Turenr Attending Unavailabl e REQUEST, DR NONE LISTED [...] Attending Unavailable GARRETT, BECKI Attending Unavailable GARRETT, BECKI Attending Unavailable Allergies Allergy Classification Reported Allergen(s) Allergy Type Date of Onset Reaction(s) Facility (1 source) Azithromycin Drug Allergy 12-16-2013 [facility] Repository Encounters Encounter Date Encounter Type Care Provider Facility Start: 11-25-2023 End: 11-25-2023 ambulatory BECKI GARRETT Not Available Start: 10-06-2023 End: 10-06-2023 ambulatory BECKI GARRETT Not Available Start: 08-08-2023 End: 08-08-2023 ambulatory BECKI GARRETT Not Available Start: 06-23-2023 End: 06-23-2023 ambulatory BECKI GARRETT Not Available Start: 12-09-2022 End: 12-11-2022 Evaluation [...] 05-18-[address] MARIO MARTINEZ . Facility:[facility] Payers Date Payer Category Payer Unknown [id number] 2.16.84 [id number] 1990 Unknown [id number] 2.16.84 [id number] 1990 Unknown [id number] 2.16.84 [id number] 1990 Unknown [id number] 2.16.84 [id number] 1990 Unknown [id number] 2.16.84 [id number] 1988 Unknown [id number] 2.16.84 [id number] 1988 Unknown [id number] 2.16.84 [id number] 1988 Unknown [id number] 2.16.84 [id number] 1988 Unknown [id number] 2.16.84 [id number] 1988 Unknown [id number] 2.16.84 [id number] 1988 Unknown [id number] 2.16.84 [id number] 1988 Unknown [id number] 2.16.84 0.1.012390.3.579.2.9 1988 Unknown [id number] 2.16.84 [id number] 1988 Unknown [id number] 2.16.84 0.1.406757.3.579.2.9 1988 Unknown [id number] 2.16.840 .[id number] 1961 Self-pay [id number] 1961 Unknown [id number] Unknown [id number] 2.16.84 [id number] Problems Active Problems Problem Classification Problem Date [...] 11-03-2022 Episodic Other aftercare (1 source) Other long term acute care registered nurse (current) drug therapy; Translations: [OTH SNF CURRENT DRUG THERAPY] Onset: 12-14-2022 Episodic Other [...] WEEKS GESTATION OF ] Onset: 06-20-2022 Episodic Procedures Date Procedure Procedure Detail Performing Clinician Start: 12-09-2022 Extraction of Produc ts of Conception, Low Cervical, Open Approach DR MARIO MARTINEZ . Results Test Name Value Interpretation Reference Range Facility CANNABINOID (THC) CONFIRMATI ON, URINEon 12-15-2022 Cannabinoid Positive Abnormal [facility] Comment on above: Performed By: #### C BC #### [facility] [address] [place] [address] Dr. Isi Summers THC GC/MS Conf >750 Normal Cutoff=10 [facility] Comment on above: Performed By: #### C BC #### [facility] [address] [address] [address] Isi Forbes CBC AUTO DIFFon 12-10-2022 BASO # 0.0 103/ul Normal 0.0-0.1 [facility] Comment on above: Performed By: #### G TT3P #### [facility] [address] [place] [address] Dr. Isi Forbes Basophils/100 WBC (Bld) 0.3 % Normal 0.2-2.0 [facility] Comment on above: Performed By: #### G TT3P #### [facility] [address] [address] [address] Isi Forbes EO # 0.1 103/ul Normal 0.0-0.7 [facility] Comment on above: Performed By: #### G TT3P #### [facility] [address] [place] [address] Dr. Isi Forbes Eosinophils/100 WBC (Bld) 0.5 % Critically low 0.9-7.0 [facility] Comment on above: Performed By: #### G TT3P #### [facility] [address] [place] [address] Dr. Isi Forbes Erythrocyte distribution width (RBC) [Ratio] 13.8 % Normal 11.0-15.0 [facility] Comment on above: Performed By: #### G TT3P #### [facility] [address] [place] [address] Dr. Isi Forbes Hematocrit (Bld) [Volume fraction] 24.1 % Critically low 36.0-48.0 [facility] Comment on above: Performed By: #### G TT3P #### [facility] [address] [place] [address] Dr. sIi Forbes Hemoglobin (Bld) [Mass/Vol] 7.7 g/dL Critically low 12.0-16.0 [facility] Comment on above: Performed By: #### G TT3P #### [facility] [address] [place] [address] Dr. Isi Forbes IG # 0.11 10e3/ul Critically high 0.00-0.03 [facility] Comment on above: Performed By: #### G TT3P #### [facility] [address] [place] [address] Dr. Isi Forbes IG % 0.9 % Critically high 0.0-0.5 [facility] Comment on above: Performed By: #### G TT3P #### [facility] [address] [place] [address] Dr. Isi Forbes LYMPH # 2.0 103/ul Normal 1.2-3.8 [facility] Comment on above: Performed By: #### G TT3P #### [facility] [address] [address] [address] Isi Forbes Lymphocytes/100 WBC (Bld) 16.9 % Critically low 20.5-60.0 [facility] Comment on above: Performed By: #### G TT3P #### [facility] [address] [address] [address] Isi Forbes MANUAL DIFF REQ NO Normal [facility] Comment on above: Performed By: #### G TT3P #### [facility] [address] [place] [address] Dr. Isi Forbes MCH (RBC) [Entitic mass] 27.4 pg Normal 26.7-34.0 [facility] Comment on above: Performed By: #### G TT3P #### [facility] [address] [place] [address] Dr. Isi Forbes MCHC (RBC) [Mass/Vol] 32.0 g/dL Normal 29.9-35.2 [facility] Comment on above: Performed By: #### G TT3P #### [facility] [address] [place] [address] Dr. Isi Forbes MCV (RBC) [Entitic vol] 85.8 fL Normal 81.0-99.0 [facility] Comment on above: Performed By: #### G TT3P #### [facility] [address] [place] [address] Dr. Isi Forbes MONO # 1.5 103/ul Critically high 0.3-0.8 [facility] Comment on above: Performed By: #### G TT3P #### [facility] [address] [place] [address] Dr. Isi Forbes Monocytes/100 WBC (Bld) 12.2 % Critically high 1.7-12.0 [facility] Comment on above: Performed By: #### G TT3P #### [facility] [address] [place] [address] Dr. Isi Forbes NEUT # 8.3 103/ul Critically high 1.4-6.5 [facility] Comment on above: Performed By: #### G TT3P #### [facility] [address] [address] [address] Isi Forbes Neutrophils/100 WBC (Bld) 69.2 % Normal 43.0-75.0 [facility] Comment on above: Performed By: #### G TT3P #### [facility] [address] [address] [address] Isi Forbes Platelet mean volume (Bld) [Entitic vol] 9.6 fL Normal 9.5-13.5 [facility] Comment on above: Performed By: #### G TT3P #### [facility] [address] [address] [address] Isi Forbes PLT 205 103/ul Normal 150-450 [facility] Comment on above: Performed By: #### G TT3P #### [facility] [address] [place] [address] Dr. Isi Forbes RBC 2.81 106/ul Critically low 4.20-5.40 [facility] Comment on above: Performed By: #### G TT3P #### [facility] [address] [place] [address] Dr. Isi Forbes WBC 12.0 103/ul Critically high 4.0-11.0 [facility] Comment on above: Performed By: #### G TT3P #### [facility] [address] [place] [address] Dr. Isi Forbes CBC AUTO DIFFon 12-09-2022 BASO # 0.1 103/ul Normal 0.0-0.1 [facility] Comment on above: Performed By: #### G TT3P #### [facility] [address] [place] [address] Dr. Isi Forbes Basophils/100 WBC (Bld) 0.5 % Normal 0.2-2.0 [facility] Comment on above: Performed By: #### G TT3P #### [facility] [address] [place] [address] Dr. Isi Forbes EO # 0.1 103/ul Normal 0.0-0.7 [facility] Comment on above: Performed By: #### G TT3P #### [facility] [address] [address] [address] Isi Forbes Eosinophils/100 WBC (Bld) 0.4 % Critically low 0.9-7.0 [facility] Comment on above: Performed By: #### G TT3P #### [facility] [address] [address] [address] Isi Forbes Erythrocyte distribution width (RBC) [Ratio] 13.7 % Normal 11.0-15.0 [facility] Comment on above: Performed By: #### G TT3P #### [facility] [address] [place] [address] Dr. Isi Forbes Hematocrit (Bld) [Volume fraction] 31.9 % Critically low 36.0-48.0 [facility] Comment on above: Performed By: #### G TT3P #### [facility] [address] [place] [address] Dr. Isi Forbes Hemoglobin (Bld) [Mass/Vol] 10.5 g/dL Critically low 12.0-16.0 [facility] Comment on above: Performed By: #### G TT3P #### [facility] [address] [place] [address] Dr. Isi Forbes IG # 0.13 10e3/ul Critically high 0.00-0.03 [facility] Comment on above: Performed By: #### G TT3P #### [facility] [address] [place] [address] Dr. Isi Forbes IG % 1.2 % Critically high 0.0-0.5 [facility] Comment on above: Performed By: #### G TT3P #### [facility] [address] [place] [address] Dr. Isi Forbes LYMPH # 2.0 103/ul Normal 1.2-3.8 [facility] Comment on above: Performed By: #### G TT3P #### [facility] [address] [place] [address] Dr. Isi Forbes Lymphocytes/100 WBC (Bld) 18.0 % Critically low 20.5-60.0 [facility] Comment on above: Performed By: #### G TT3P #### [facility] [address] [place] [address] Dr. Isi Forbes MANUAL DIFF REQ NO Normal [facility] Comment on above: Performed By: #### G TT3P #### [facility] [address] [place] [address] Dr. Isi Forbes MCH (RBC) [Entitic mass] 27.6 pg Normal 26.7-34.0 [facility] Comment on above: Performed By: #### G TT3P #### [facility] [address] [place] [address] Dr. Isi Forbes MCHC (RBC) [Mass/Vol] 32.9 g/dL Normal 29.9-35.2 [facility] Comment on above: Performed By: #### G TT3P #### [facility] [address] [place] [address] Dr. Isi Forbes MCV (RBC) [Entitic vol] 83.9 fL Normal 81.0-99.0 [facility] Comment on above: Performed By: #### G TT3P #### [facility] [address] [place] [address] Dr. Isi Forbes MONO # 1.0 103/ul Critically high 0.3-0.8 [facility] Comment on above: Performed By: #### G TT3P #### [facility] [address] [place] [address] Dr. Isi Forbes Monocytes/100 WBC (Bld) 8.9 % Normal 1.7-12.0 [facility] Comment on above: Performed By: #### G TT3P #### [facility] [address] [place] [address] Dr. Isi Forbes NEUT # 7.9 103/ul Critically high 1.4-6.5 [facility] Comment on above: Performed By: #### G TT3P #### [facility] [address] [place] [address] Dr. Isi Forbes Neutrophils/100 WBC (Bld) 71.0 % Normal 43.0-75.0 [facility] Comment on above: Performed By: #### G TT3P #### [facility] [address] [address] [address] Isi Forbes Platelet mean volume (Bld) [Entitic vol] 10.0 fL Normal 9.5-13.5 [facility] Comment on above: Performed By: #### G TT3P #### [facility] [address] [address] [address] Isi Forbes PLT 264 103/ul Normal 150-450 [facility] Comment on above: Performed By: #### G TT3P #### [facility] [address] [address] [address] Isi Forbes RBC 3.80 106/ul Critically low 4.20-5.40 [facility] Comment on above: Performed By: #### G TT3P #### [facility] [address] [place] [address] Dr. Isi Forbes WBC 11.1 103/ul Critically high 4.0-11.0 [facility] Comment on above: Performed By: #### G TT3P #### [facility] [address] [place] [address] Dr. Isi Forbes DRUG SCREEN RAPID (URINE)on 12-09-2022 AMP Negative Normal NEGATIVE [facility] Comment on above: Performed By: #### G TT3P #### [facility] [address] [place] [address] Dr. Isi Forbes BAR Negative Normal NEGATIVE [facility] Comment on above: Performed By: #### G TT3P #### [facility] [address] [address] [address] Isi Forbes BUP Negative Normal NEGATIVE [facility] Comment on above: Performed By: #### G TT3P #### [facility] [address] [place] [address] Dr. Isi Forbes BZO Negative Normal NEGATIVE [facility] Comment on above: Performed By: #### G TT3P #### [facility] [address] [place] [address] Dr. Isi Forbes BEATA Negative Normal NEGATIVE [facility] Comment on above: Performed By: #### G TT3P #### [facility] [address] [place] [address] Dr. Isi Forbes CUT-OFFS SEE BELOW Normal [facility] Comment on above: Result Comment: AMP [...] ng/mL Performed By: #### G TT3P #### [facility] [address] [place] [address] Dr. Isi Forbes DRUG CUT HEADER DRUG CLASS TEST SYSTEM CUT-OFF CONCENTRATIONS ARE FOLLOWS: Normal [facility] Comment on above: Performed By: #### G TT3P #### [facility] [address] [place] [address] Dr. Isi Forbes mAMP Negative Normal NEGATIVE [facility] Comment on above: Performed By: #### G TT3P #### [facility] [address] [place] [address] Dr. Isi Forbes MTD Negative Normal NEGATIVE [facility] Comment on above: Performed By: #### G TT3P #### [facility] [address] [place] [address] Dr. Isi Forebs OPI Negative Normal NEGATIVE [facility] Comment on above: Performed By: #### G TT3P #### [facility] [address] [place] [address] Dr. Isi Forbes OXY Negative Normal NEGATIVE [facility] Comment on above: Performed By: #### G TT3P #### [facility] [address] [place] [address] Dr. Isi Forbes PCP Negative Normal NEGATIVE [facility] Comment on above: Performed By: #### G TT3P #### [facility] [address] [place] [address] Dr. Isi Forbes PPX Negative Normal NEGATIVE [facility] Comment on above: Performed By: #### G TT3P #### [facility] [address] [place] [address] Dr. Isi Forbes TCA Negative Normal NEGATIVE [facility] Comment on above: Performed By: #### G TT3P #### [facility] [address] [place] [address] Dr. Isi Forbes THC Positive Abnormal NEGATIVE [facility] Comment on above: Performed By: #### G TT3P #### [facility] [address] [place] [address] Dr. Isi Forbes TYPE AND SCREENon 12-09-2022 TYPE AND SCREEN Negative Normal [facility] Comment on above: Performed By: #### R PRQ #### [facility] [address] [place] [address] Dr. Isi Forbes UA (CLEAN/CATCH) UPFITTER/MICRO I F IND.on 12-09-2022 Bilirubin Ql (U) Negative Normal NEGATIVE [facility] Comment on above: Performed By: #### C BC #### [facility] [address] [place] [address] Dr. Isi Forbes Clarity (U) CLEAR Normal CLEAR [facility] Comment on above: Performed By: #### C BC #### [facility] [address] [place] [address] Dr. Isi Forbes Color (U) YELLOW Normal YELLOW [facility] Comment on above: Performed By: #### C BC #### [facility] [address] [place] [address] Dr. Isi Forbes Glucose Ql (U) Negative Normal NEGATIVE [facility] Comment on above: Performed By: #### C BC #### [facility] [address] [place] [address] Dr. Isi Forbes Hemoglobin Ql (U) Negative Normal NEGATIVE [facility] Comment on above: Performed By: #### C BC #### [facility] [address] [place] [address] Dr. Isi Forbes Ketones Ql (U) TRACE Abnormal NEGATIVE [facility] Comment on above: Performed By: #### C BC #### [facility] [address] [place] [address] Dr. Isi Forbes LEUKOCYTES Negative Normal NEGATIVE [facility] Comment on above: Performed By: #### C BC #### [facility] [address] [place] [address] Dr. Isi Forbes Nitrite Ql (U) Negative Normal NEGATIVE [facility] Comment on above: Performed By: #### C BC #### [facility] [address] [place] [address] Dr. Isi Forbes pH (U) 6.5 [pH] Normal 5-9 [facility] Comment on above: Performed By: #### C BC #### [facility] [address] [place] [address] Dr. Isi Forbes SPEC GRAVITY 1.025 Normal 1.005-<=1.025 [facility] Comment on above: Performed By: #### C BC #### [facility] [address] [place] [address] Dr. Isi Forbes UA PROTEIN TRACE Normal NEGATIVE/ TRACE [facility] Comment on above: Performed By: #### C BC #### [facility] [address] [place] [address] Dr. Isi Forbes UR MICRO IND NOT INDICATED Normal [facility] Comment on above: Performed By: #### C BC #### [facility] [address] [place] [address] Dr. Isi Forbes Urobilinogen Qn (U) 0.2 {Barb'U}/dL Normal 0.2 - 1. 0 [facility] Comment on above: Performed By: #### C BC #### [facility] [address] [place] [address] Dr. Isi Forbes GROUP B STREP CULTUREon 11-15 S. agalactiae Ag Ql (Unsp spec) Culture Observations: NEGATIVE FOR GROUP B STREPTOCOCCUS. Normal [facility] Comment on above: Performed By: #### R PRQ #### [facility] [address] [place] [address] Dr. Isi Forbes PREG BIOPHY W NON STRESSo n 11-01-2022 [...] by: FREDY DICK Date: 2022-10-31 22:08 Normal [facility] US PREG GROWTHon 11-01-2022 US PREG [...] FREDY DICK Date: 2022-10-31 22:07 Normal [facility] CBC AUTO DIFFon 10-28-2022 BASO # 0.0 103/ul Normal 0.0-0.1 [facility] Comment on above: Performed By: #### G TT3P #### [facility] [address] [address] [address] Isi Forbes Basophils/100 WBC (Bld) 0.1 % Critically low 0.2-2.0 [facility] Comment on above: Performed By: #### G TT3P #### [facility] [address] [place] [address] Dr. Isi Forbes EO # 0.0 103/ul Normal 0.0-0.7 [facility] Comment on above: Performed By: #### G TT3P #### [facility] [address] [place] [address] Dr. Isi Forbes Eosinophils/100 WBC (Bld) 0.1 % Critically low 0.9-7.0 [facility] Comment on above: Performed By: #### G TT3P #### [facility] [address] [place] [address] Dr. Isi Forbes Erythrocyte distribution width (RBC) [Ratio] 12.7 % Normal 11.0-15.0 [facility] Comment on above: Performed By: #### G TT3P #### [facility] [address] [place] [address] Dr. Isi Forbes Hematocrit (Bld) [Volume fraction] 29.1 % Critically low 36.0-48.0 [facility] Comment on above: Performed By: #### G TT3P #### [facility] [address] [place] [address] Dr. Isi Forbes Hemoglobin (Bld) [Mass/Vol] 9.4 g/dL Critically low 12.0-16.0 [facility] Comment on above: Performed By: #### G TT3P #### [facility] [address] [place] [address] Dr. Isi Forbes IG # 0.20 10e3/ul Critically high 0.00-0.03 [facility] Comment on above: Performed By: #### G TT3P #### [facility] [address] [place] [address] Dr. Isi Forbes IG % 1.4 % Critically high 0.0-0.5 [facility] Comment on above: Performed By: #### G TT3P #### [facility] [address] [place] [address] Dr. Isi Forbes LYMPH # 1.9 103/ul Normal 1.2-3.8 [facility] Comment on above: Performed By: #### G TT3P #### [facility] [address] [place] [address] Dr. Isi Forbes Lymphocytes/100 WBC (Bld) 13.5 % Critically low 20.5-60.0 [facility] Comment on above: Performed By: #### G TT3P #### [facility] [address] [place] [address] Dr. Isi Forbes MANUAL DIFF REQ NO Normal [facility] Comment on above: Performed By: #### G TT3P #### [facility] [address] [place] [address] Dr. Isi Forbes MCH (RBC) [Entitic mass] 28.2 pg Normal 26.7-34.0 [facility] Comment on above: Performed By: #### G TT3P #### [facility] [address] [place] [address] Dr. Isi Forbes MCHC (RBC) [Mass/Vol] 32.3 g/dL Normal 29.9-35.2 [facility] Comment on above: Performed By: #### G TT3P #### [facility] [address] [place] [address] Dr. Isi Forbes MCV (RBC) [Entitic vol] 87.4 fL Normal 81.0-99.0 [facility] Comment on above: Performed By: #### G TT3P #### [facility] [address] [place] [address] Dr. Isi Forbes MONO # 0.8 103/ul Normal 0.3-0.8 [facility] Comment on above: Performed By: #### G TT3P #### [facility] [address] [place] [address] Dr. Isi Forbes Monocytes/100 WBC (Bld) 5.9 % Normal 1.7-12.0 [facility] Comment on above: Performed By: #### G TT3P #### [facility] [address] [place] [address] Dr. Isi Forbes NEUT # 10.9 103/ul Critically high 1.4-6.5 [facility] Comment on above: Performed By: #### G TT3P #### [facility] [address] [address] [address] Isi Forbes Neutrophils/100 WBC (Bld) 79.0 % Critically high 43.0-75.0 [facility] Comment on above: Performed By: #### G TT3P #### [facility] [address] [place] [address] Dr. Isi Forbes Platelet mean volume (Bld) [Entitic vol] 9.3 fL Critically low 9.5-13.5 [facility] Comment on above: Performed By: #### G TT3P #### [facility] [address] [place] [address] Dr. Isi Forbes PLT 265 103/ul Normal 150-450 [facility] Comment on above: Performed By: #### G TT3P #### [facility] [address] [place] [address] Dr. Isi Forbes RBC 3.33 106/ul Critically low 4.20-5.40 [facility] Comment on above: Performed By: #### G TT3P #### [facility] [address] [place] [address] Dr. Isi Forbes WBC 13.8 103/ul Critically high 4.0-11.0 [facility] Comment on above: Performed By: #### G TT3P #### [facility] [address] [place] [address] Dr. Isi Forbes CBC AUTO DIFFon 10-27-2022 BASO # 0.0 103/ul Normal 0.0-0.1 [facility] Comment on above: Performed By: #### C BC #### [facility] [address] [place] [address] Dr. Isi Forbes Basophils/100 WBC (Bld) 0.2 % Normal 0.2-2.0 [facility] Comment on above: Performed By: #### C BC #### [facility] [address] [place] [address] Dr. Isi Forbes EO # 0.0 103/ul Normal 0.0-0.7 [facility] Comment on above: Performed By: #### C BC #### [facility] [address] [place] [address] Dr. Isi Forbes Eosinophils/100 WBC (Bld) 0.1 % Critically low 0.9-7.0 [facility] Comment on above: Performed By: #### C BC #### [facility] [address] [place] [address] Dr. Isi Forbes Erythrocyte distribution width (RBC) [Ratio] 12.7 % Normal 11.0-15.0 [facility] Comment on above: Performed By: #### C BC #### [facility] [address] [place] [address] Dr. Isi Forbes Hematocrit (Bld) [Volume fraction] 30.4 % Critically low 36.0-48.0 [facility] Comment on above: Performed By: #### C BC #### [facility] [address] [place] [address] Dr. Isi Forbes Hemoglobin (Bld) [Mass/Vol] 10.4 g/dL Critically low 12.0-16.0 [facility] Comment on above: Performed By: #### C BC #### [facility] [address] [place] [address] Dr. Isi Forbes IG # 0.19 10e3/ul Critically high 0.00-0.03 [facility] Comment on above: Performed By: #### C BC #### [facility] [address] [place] [address] Dr. Isi Forbes IG % 1.2 % Critically high 0.0-0.5 [facility] Comment on above: Performed By: #### C BC #### [facility] [address] [place] [address] Dr. Isi Forbes LYMPH # 1.1 103/ul Critically low 1.2-3.8 [facility] Comment on above: Performed By: #### C BC #### [facility] [address] [place] [address] Dr. Isi Forbes Lymphocytes/100 WBC (Bld) 6.7 % Critically low 20.5-60.0 [facility] Comment on above: Performed By: #### C BC #### [facility] [address] [place] [address] Dr. Isi Forbes MANUAL DIFF REQ NO Normal [facility] Comment on above: Performed By: #### C BC #### [facility] [address] [place] [address] Dr. Isi Forbes MCH (RBC) [Entitic mass] 29.5 pg Normal 26.7-34.0 [facility] Comment on above: Performed By: #### C BC #### [facility] [address] [place] [address] Dr. Isi Forbes MCHC (RBC) [Mass/Vol] 34.2 g/dL Normal 29.9-35.2 [facility] Comment on above: Performed By: #### C BC #### [facility] [address] [place] [address] Dr. Isi Forbes MCV (RBC) [Entitic vol] 86.1 fL Normal 81.0-99.0 [facility] Comment on above: Performed By: #### C BC #### [facility] [address] [place] [address] Dr. Isi Forbes MONO # 0.3 103/ul Normal 0.3-0.8 [facility] Comment on above: Performed By: #### C BC #### [facility] [address] [place] [address] Dr. Isi Forbes Monocytes/100 WBC (Bld) 1.7 % Normal 1.7-12.0 [facility] Comment on above: Performed By: #### C BC #### [facility] [address] [place] [address] Dr. Isi Forbes NEUT # 14.1 103/ul Critically high 1.4-6.5 [facility] Comment on above: Performed By: #### C BC #### [facility] [address] [place] [address] Dr. Isi Forbes Neutrophils/100 WBC (Bld) 90.1 % Critically high 43.0-75.0 [facility] Comment on above: Performed By: #### C BC #### [facility] [address] [place] [address] Dr. Isi Forbes Platelet mean volume (Bld) [Entitic vol] 8.9 fL Critically low 9.5-13.5 [facility] Comment on above: Performed By: #### C BC #### [facility] [address] [place] [address] Dr. Isi Forbes PLT 276 103/ul Normal 150-450 [facility] Comment on above: Performed By: #### C BC #### [facility] [address] [place] [address] Dr. Isi Forbes RBC 3.53 106/ul Critically low 4.20-5.40 [facility] Comment on above: Performed By: #### C BC #### [facility] [address] [place] [address] Dr. Isi Forbes WBC 15.6 103/ul Critically high 4.0-11.0 [facility] Comment on above: Performed By: #### C BC #### [facility] [address] [place] [address] Dr. 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 Isi Forbes Clarity (U) CLEAR Normal CLEAR [facility] Comment on above: Performed By: #### C BC #### [facility] [address] [place] [address] Dr. Isi Forbes Color (U) LT. YELLOW Normal YELLOW [facility] Comment on above: Performed By: #### C BC #### [facility] [address] [place] [address] Dr. Isi Forbes Glucose Ql (U) Negative Normal NEGATIVE [facility] Comment on above: Performed By: #### C BC #### [facility] [address] [place] [address] Dr. Isi Forbes Hemoglobin Ql (U) Negative Normal NEGATIVE [facility] Comment on above: Performed By: #### C BC #### [facility] [address] [place] [address] Dr. Isi Forbes Ketones Ql (U) Negative Normal NEGATIVE [facility] Comment on above: Performed By: #### C BC #### [facility] [address] [place] [address] Dr. Isi Forbes LEUKOCYTES Negative Normal NEGATIVE [facility] Comment on above: Performed By: #### C BC #### [facility] [address] [place] [address] Dr. Isi Forbes Nitrite Ql (U) Negative Normal NEGATIVE [facility] Comment on above: Performed By: #### C BC #### [facility] [address] [place] [address] Dr. Isi Forbes pH (U) 6.0 [pH] Normal 5-9 [facility] Comment on above: Performed By: #### C BC #### [facility] [address] [place] [address] Dr. Isi Forbes SPEC GRAVITY 1.010 Normal 1.005-<=1.025 [facility] Comment on above: Performed By: #### C BC #### [facility] [address] [place] [address] Dr. Isi Forbes UA PROTEIN Negative Normal NEGATIVE/ TRACE [facility] Comment on above: Performed By: #### C BC #### [facility] [address] [place] [address] Dr. Isi Forbes UR MICRO IND NOT INDICATED Normal [facility] Comment on above: Performed By: #### C BC #### [facility] [address] [place] [address] Dr. Isi Forbes Urobilinogen Qn (U) 0.2 {Barb'U}/dL Normal 0.2 - 1. 0 [facility] Comment on above: Performed By: #### C BC #### [facility] [address] [address] [address] Isi Forbes US PREG CERVICAL LENGTHon [...] FREDY DICK Date: 2022-10-27 16:05 Normal [facility] GTT 3 HR PREGon 10-26-2022 Glucose [Mass/Vol] 99 mg/dL Normal 74-106 [facility] Comment on above: Performed By: #### G TT3P #### [facility] [address] [address] [address] Isi Forbes Glucose [Mass/Vol] 172 mg/dL Normal [facility] Comment on above: Performed By: #### G TT3P #### [facility] [address] [address] [address] Isi Forbes Glucose [Mass/Vol] 147 mg/dL Normal [facility] Comment on above: Performed By: #### G TT3P #### [facility] [address] [address] [address] Isi Forbes Glucose [Mass/Vol] 125 mg/dL Normal [facility] Comment on above: Performed By: #### G TT3P #### [facility] [address] [address] [address] Isi Forbes GLYCOHEMOGLOBIN A1Con 2022 ADA RECOMMENDATION SEE BELOW Normal [facility] Comment on above: Result Comment: ADA RECOMMENDED LIMIT 4.0 - 6.0 ADA THERAPEUTIC TARGET < 7.0 ACTION SUGGESTED > 7.0 Performed By: #### A 1C #### [facility] [address] [place] [address] Dr. Isi Forbes Glucose [Mass/Vol] 114 mg/dL Normal [facility] Comment on above: Performed By: #### A 1C #### [facility] [address] [place] [address] Dr. Isi Forbes HbA1c (Bld) [Mass fraction] 5.6 % Normal 4.5-6.2 [facility] Comment on above: Performed By: #### A 1C #### [facility] [address] [place] [address] Dr. Isi Forbes UA RANDOMon 10-25-2022 Bilirubin Ql (U) Negative Normal NEGATIVE [facility] Comment on above: Performed By: #### R PRQ #### [facility] [address] [place] [address] Dr. Isi Forbes Clarity (U) CLEAR Normal CLEAR [facility] Comment on above: Performed By: #### R PRQ #### [facility] [address] [place] [address] Dr. Isi Forbes Color (U) LT. YELLOW Normal YELLOW [facility] Comment on above: Performed By: #### R PRQ #### [facility] [address] [place] [address] Dr. Isi Forbes Glucose Ql (U) Negative Normal NEGATIVE [facility] Comment on above: Performed By: #### R PRQ #### [facility] [address] [place] [address] Dr. Isi Forbes Hemoglobin Ql (U) Negative Normal NEGATIVE [facility] Comment on above: Performed By: #### R PRQ #### [facility] [address] [place] [address] Dr. Isi Forbes Ketones Ql (U) Negative Normal NEGATIVE [facility] Comment on above: Performed By: #### R PRQ #### [facility] [address] [place] [address] Dr. Isi Forbes LEUKOCYTES Negative Normal NEGATIVE [facility] Comment on above: Performed By: #### R PRQ #### [facility] [address] [place] [address] Dr. Isi Forbes Nitrite Ql (U) Negative Normal NEGATIVE [facility] Comment on above: Performed By: #### R PRQ #### [facility] [address] [place] [address] Dr. Isi Forbes pH (U) 7.5 [pH] Normal 5-9 [facility] Comment on above: Performed By: #### R PRQ #### [facility] [address] [place] [address] Dr. Isi Forbes SPEC GRAVITY 1.020 Normal 1.005-<=1.025 [facility] Comment on above: Performed By: #### R PRQ #### [facility] [address] [place] [address] Dr. Isi Forbes UA PROTEIN Negative Normal NEGATIVE/ TRACE [facility] Comment on above: Performed By: #### R PRQ #### [facility] [address] [place] [address] Dr. Isi Forbes Urobilinogen Qn (U) 0.2 {Barb'U}/dL Normal 0.2 - 1. 0 [facility] Comment on above: Performed By: #### R PRQ #### [facility] [address] [place] [address] Dr. Isi Forbes GLUCOSE - 1HRon 09-27-2022 Glucose [Mass/Vol] 166 mg/dL Critically high 74-106 [facility] Comment on above: Performed By: #### C BC #### [facility] [address] [place] [address] Dr. Isi Forbes HEMOGRAM AND PLATELon 2022 Hematocrit (Bld) [Volume fraction] 30.9 % Critically low 36.0-48.0 [facility] Comment on above: Performed By: #### C BC #### [facility] [address] [place] [address] Dr. Isi Forbes Hemoglobin (Bld) [Mass/Vol] 10.4 g/dL Critically low 12.0-16.0 [facility] Comment on above: Performed By: #### C BC #### [facility] [address] [place] [address] Dr. Isi Forbes MCH (RBC) [Entitic mass] 29.9 pg Normal 26.7-34.0 [facility] Comment on above: Performed By: #### C BC #### [facility] [address] [place] [address] Dr. Isi Forbes MCHC (RBC) [Mass/Vol] 33.7 g/dL Normal 29.9-35.2 [facility] Comment on above: Performed By: #### C BC #### [facility] [address] [address] [address] Isi Forbes MCV (RBC) [Entitic vol] 88.8 fL Normal 81.0-99.0 [facility] Comment on above: Performed By: #### C BC #### [facility] [address] [place] [address] Dr. Isi Forbes PLT 300 103/ul Normal 150-450 [facility] Comment on above: Performed By: #### C BC #### [facility] [address] [place] [address] Dr. Isi Forbes RBC 3.48 106/ul Critically low 4.20-5.40 [facility] Comment on above: Performed By: #### C BC #### [facility] [address] [place] [address] Dr. Isi Forbes WBC 10.1 103/ul Normal 4.0-11.0 [facility] Comment on above: Performed By: #### C BC #### [facility] [address] [place] [address] Dr. Isi Forbes US PREG ANATOMY SINGLEon [...] by: ASHLEE STOVER Date: 2022-08-04 16:06 Normal [facility] PAP ACOG PANEL 2: 30 to 65on 07-25-2022 . . Normal [facility] Comment on above: Result Comment: Perf ormed at: [facility] Performed By: #### G TT3P #### [facility] [address] [place] [address] Dr. Isi Forbes Age Gdln ACOG Testing 30-65 Normal [facility] Comment on above: Performed By: #### G TT3P #### [facility] [address] [place] [address] Dr. Isi Forbes DIAGNOSIS: Comment Normal [facility] Comment on above: Result Comment: NEGA TIVE FOR INTRAEPITHELIAL LESION OR MALIGNANCY. Performed at: [facility] Performed By: #### G TT3P #### [facility] [address] [place] [address] Dr. Isi Forbes HPV Aptima Negative Normal Negative [facility] Comment on above: Result Comment: This nucleic acid amplification test detects fourteen high-risk HPV types (16,18,31,33,35,39,45,51,52,56,58,59,66,68) without differentiation. Performed at: =G Performed By: #### G TT3P #### [facility] [address] [place] [address] Dr. Isi Forbes HPV Genotype Reflex Comment Normal [facility] Comment on above: Result Comment: Crit eria not met, HPV Genotype not performed. Performed at: [facility] Performed By: #### G TT3P #### [facility] [address] [place] [address] Dr. Isi Forbes Methodology: Comment Normal [facility] Comment on above: Result Comment: This liquid based ThinPrep(R) pap test was screened with the use of an image guided system. Performed at: [facility] Performed By: #### G TT3P #### [facility] [address] [place] [address] Dr. Isi Forbes Note: Comment Normal [facility] Comment on above: Result Comment: The [...] WB Performed By: #### G TT3P #### [facility] [address] [place] [address] Dr. Isi Forbes Performed by: Comment Normal [facility] Comment on above: Result Comment: Mikki Good, Crnp (ASCP) Performed at: [facility] Performed By: #### G TT3P #### [facility] [address] [place] [address] Dr. Isi Forbes Specimen adequacy: Comment Normal [facility] Comment on above: Result Comment: Sati sfactory for evaluation. Endocervical and/or squamous metaplastic cells (endocervical component) are present. Performed at: [facility] Performed By: #### G TT3P #### [facility] [address] [place] [address] Dr. Isi Forbes CHLAMYDIA/GONOCOCCUS SARA (SW AB/URINE/PAPon 07-23-2022 Chlamydia trachomatis, SARA Negative Normal Negative [facility] Comment on above: Performed By: #### C BC #### [facility] [address] [address] [address] Isi Forbes Neisseria gonorrhoeae, ASRA Negative Normal Negative [facility] Comment on above: Performed By: #### C BC #### [facility] [address] [address] [address] Isi Forbes CBC AUTO DIFFon 06-16-2022 BASO # 0.1 103/ul Normal 0.0-0.1 [facility] Comment on above: Performed By: #### G TT3P #### [facility] [address] [place] [address] Dr. Isi Forbes Basophils/100 WBC (Bld) 0.5 % Normal 0.2-2.0 [facility] Comment on above: Performed By: #### G TT3P #### [facility] [address] [place] [address] Dr. Isi Forbes EO # 0.1 103/ul Normal 0.0-0.7 [facility] Comment on above: Performed By: #### G TT3P #### [facility] [address] [place] [address] Dr. Isi Forbes Eosinophils/100 WBC (Bld) 1.2 % Normal 0.9-7.0 [facility] Comment on above: Performed By: #### G TT3P #### [facility] [address] [place] [address] Dr. Isi Forbes Erythrocyte distribution width (RBC) [Ratio] 12.7 % Normal 11.0-15.0 [facility] Comment on above: Performed By: #### G TT3P #### [facility] [address] [place] [address] Dr. Isi Forbes Hematocrit (Bld) [Volume fraction] 33.0 % Critically low 36.0-48.0 [facility] Comment on above: Performed By: #### G TT3P #### [facility] [address] [place] [address] Dr. Isi Forbes Hemoglobin (Bld) [Mass/Vol] 11.3 g/dL Critically low 12.0-16.0 [facility] Comment on above: Performed By: #### G TT3P #### [facility] [address] [place] [address] Dr. Isi Forbes IG # 0.06 10e3/ul Critically high 0.00-0.03 [facility] Comment on above: Performed By: #### G TT3P #### [facility] [address] [place] [address] Dr. Isi Forbes IG % 0.6 % Critically high 0.0-0.5 [facility] Comment on above: Performed By: #### G TT3P #### [facility] [address] [place] [address] Dr. Isi Forbes LYMPH # 2.0 103/ul Normal 1.2-3.8 [facility] Comment on above: Performed By: #### G TT3P #### [facility] [address] [place] [address] Dr. Isi Forbes Lymphocytes/100 WBC (Bld) 20.0 % Critically low 20.5-60.0 [facility] Comment on above: Performed By: #### G TT3P #### [facility] [address] [place] [address] Dr. Isi Forbes MANUAL DIFF REQ NO Normal [facility] Comment on above: Performed By: #### G TT3P #### [facility] [address] [place] [address] Dr. Isi Forbes MCH (RBC) [Entitic mass] 31.1 pg Normal 26.7-34.0 [facility] Comment on above: Performed By: #### G TT3P #### [facility] [address] [place] [address] Dr. Isi Forbes MCHC (RBC) [Mass/Vol] 34.2 g/dL Normal 29.9-35.2 [facility] Comment on above: Performed By: #### G TT3P #### [facility] [address] [place] [address] Dr. Isi Forbes MCV (RBC) [Entitic vol] 90.9 fL Normal 81.0-99.0 [facility] Comment on above: Performed By: #### G TT3P #### [facility] [address] [place] [address] Dr. Isi Forbes MONO # 0.6 103/ul Normal 0.3-0.8 [facility] Comment on above: Performed By: #### G TT3P #### [facility] [address] [place] [address] Dr. Isi Forbes Monocytes/100 WBC (Bld) 6.0 % Normal 1.7-12.0 [facility] Comment on above: Performed By: #### G TT3P #### [facility] [address] [place] [address] Dr. Isi Forbes NEUT # 7.2 103/ul Critically high 1.4-6.5 [facility] Comment on above: Performed By: #### G TT3P #### [facility] [address] [place] [address] Dr. Isi Forbes Neutrophils/100 WBC (Bld) 71.7 % Normal 43.0-75.0 [facility] Comment on above: Performed By: #### G TT3P #### [facility] [address] [place] [address] Dr. Isi Forbes Platelet mean volume (Bld) [Entitic vol] 9.5 fL Normal 9.5-13.5 [facility] Comment on above: Performed By: #### G TT3P #### [facility] [address] [place] [address] Dr. Isi Forbes PLT 244 103/ul Normal 150-450 [facility] Comment on above: Performed By: #### G TT3P #### [facility] [address] [place] [address] Dr. Isi Forbes RBC 3.63 106/ul Critically low 4.20-5.40 [facility] Comment on above: Performed By: #### G TT3P #### [facility] [address] [place] [address] Dr. Isi Forbes WBC 10.0 103/ul Normal 4.0-11.0 [facility] Comment on above: Performed By: #### G TT3P #### [facility] [address] [address] [address] Isi MCDONNELL URINE PROFILEon 2 Bilirubin Ql (U) Negative Normal NEGATIVE [facility] Comment on above: Performed By: #### G TT3P #### [facility] [address] [place] [address] Dr. Isi Forbes Clarity (U) CLEAR Normal CLEAR [facility] Comment on above: Performed By: #### G TT3P #### [facility] [address] [address] [address] Isi Forbes Color (U) LT. YELLOW Normal YELLOW [facility] Comment on above: Performed By: #### G TT3P #### [facility] [address] [place] [address] Dr. Isi GOOD A micrscopic examination will be performed if indicated. Normal [facility] Comment on above: Performed By: #### G TT3P #### [facility] [address] [place] [address] Dr. Isi Forbes Glucose Ql (U) Negative Normal NEGATIVE [facility] Comment on above: Performed By: #### G TT3P #### [facility] [address] [place] [address] Dr. Isi Forbes Hemoglobin Ql (U) Negative Normal NEGATIVE [facility] Comment on above: Performed By: #### G TT3P #### [facility] [address] [address] [address] Isi Forbes Ketones Ql (U) Negative Normal NEGATIVE [facility] Comment on above: Performed By: #### G TT3P #### [facility] [address] [address] [address] Isi Forbes LEUKOCYTES TRACE Abnormal NEGATIVE [facility] Comment on above: Performed By: #### G TT3P #### [facility] [address] [place] [address] Dr. Isi Forbes Nitrite Ql (U) Negative Normal NEGATIVE [facility] Comment on above: Performed By: #### G TT3P #### [facility] [address] [place] [address] Dr. Isi Forbes pH (U) 7.0 [pH] Normal 5-9 [facility] Comment on above: Performed By: #### G TT3P #### [facility] [address] [place] [address] Dr. Isi Forbes SPEC GRAVITY 1.020 Normal 1.005-<=1.025 [facility] Comment on above: Performed By: #### G TT3P #### [facility] [address] [place] [address] Dr. Isi Forbes UA PROTEIN Negative Normal NEGATIVE/ TRACE [facility] Comment on above: Performed By: #### G TT3P #### [facility] [address] [place] [address] Dr. Isi Forbes UR MICRO IND INDICATED Normal [facility] Comment on above: Performed By: #### G TT3P #### [facility] [address] [place] [address] Dr. Isi Forbes Urobilinogen Qn (U) 0.2 {Barb'U}/dL Normal 0.2 - 1. 0 [facility] Comment on above: Performed By: #### G TT3P #### [facility] [address] [place] [address] Dr. Isi Forbes PROF CHEM 8 (BAS METB)on Anion gap [Moles/Vol] 11.8 mmol/L [facility] Comment on above: Performed By: #### G TT3P #### [facility] [address] [place] [address] Dr. Isi Forbes Calcium [Mass/Vol] 8.8 mg/dL Normal 8.5-10.1 [facility] Comment on above: Performed By: #### G TT3P #### [facility] [address] [place] [address] Dr. Isi Forbes Chloride [Moles/Vol] 102 mmol/L Normal 98-107 [facility] Comment on above: Performed By: #### G TT3P #### [facility] [address] [address] [address] Isi Forbes CO2 [Moles/Vol] 26.9 mmol/L Normal 21.0-32.0 [facility] Comment on above: Performed By: #### G TT3P #### [facility] [address] [place] [address] Dr. Isi Forbes Creatinine [Mass/Vol] 0.42 mg/dL Critically low 0.55-1.02 [facility] Comment on above: Performed By: #### G TT3P #### [facility] [address] [address] [address] Isi Forbes EGFR-AF CITIZEN OF [place] >60 Normal >=60 [facility] Comment on above: Performed By: #### G TT3P #### [facility] [address] [place] [address] Dr. Isi Forbes EGFR-NON AF CITIZEN OF [place] >60 Normal >=60 [facility] Comment on above: Performed By: #### G TT3P #### [facility] [address] [address] [address] Isi Forbes Glucose [Mass/Vol] 86 mg/dL Normal 74-106 [facility] Comment on above: Performed By: #### G TT3P #### [facility] [address] [place] [address] Dr. Isi Forbes Potassium [Moles/Vol] 3.7 mmol/L Normal 3.5-5.1 [facility] Comment on above: Performed By: #### G TT3P #### [facility] [address] [place] [address] Dr. Isi Forbes Sodium [Moles/Vol] 137 mmol/L Normal 136-145 [facility] Comment on above: Performed By: #### G TT3P #### [facility] [address] [place] [address] Dr. Isi Forbes Urea nitrogen [Mass/Vol] 9.0 mg/dL Normal 7.0-18.0 [facility] Comment on above: Performed By: #### G TT3P #### [facility] [address] [place] [address] Dr. Isi Forbes Urea nitrogen/Creatinine [Mass ratio] 21.4 mg/mg Normal [facility] Comment on above: Performed By: #### G TT3P #### [facility] [address] [place] [address] Dr. Isi Forbes URINE MICROSCOPIC ONLYon BACTERIA TRACE Abnormal NONE SEEN [facility] Comment on above: Performed By: #### C BC #### [facility] [address] [place] [address] Dr. Isi Forbes Bacteria identified Cx Nom (U) NOT INDICATED Normal [facility] Comment on above: Performed By: #### C BC #### [facility] [address] [place] [address] Dr. Isi Forbes CAST NONE SEEN Normal NONE SEEN [facility] Comment on above: Performed By: #### C BC #### [facility] [address] [place] [address] Dr. Isi Forbes Crystals LM Nom (Urine sed) NONE SEEN Normal NONE SEEN [facility] Comment on above: Performed By: #### C BC #### [facility] [address] [place] [address] Dr. Isi Forbes Epithelial cells LM Ql (Urine sed) MODERATE Abnormal NONE SEEN /RARE [facility] Comment on above: Performed By: #### C BC #### [facility] [address] [place] [address] Dr. Isi Forbes MUCOUS NONE SEEN Normal NONE SEEN [facility] Comment on above: Performed By: #### C BC #### [facility] [address] [place] [address] Dr. Isi Forbes RBC NONE SEEN Abnormal 0-2 [facility] Comment on above: Performed By: #### C BC #### [facility] [address] [place] [address] Dr. Isi Forbes WBC 2-5 Abnormal NONE SEEN [facility] Comment on above: Performed By: #### C BC #### [facility] [address] [place] [address] Dr. Isi Forbes HEP B SURFACE ANTIGEN SCREEN on 06-05-2022 HBsAg Screen Negative Normal Negative [facility] Comment on above: Performed By: #### H BSANS #### [facility] [address] [address] [address] Isi Forbes HEPATITIS C VIRUS AB W/ REFL EX QUANTon 06-05-2022 HCV AB 0.1 s/co ratio Normal 0.0-0.9 [facility] Comment on above: Performed By: #### G TT3P #### [facility] [address] [place] [address] Dr. Isi Forbes Interpretation: Comment Normal [facility] Comment on above: Result Comment: Nega tive Not infected with HCV, unless recent infection is suspected or other evidence exists to indicate HCV infection. Performed By: #### G TT3P #### [facility] [address] [place] [address] Dr. Isi Forbes HIV 1 AND 2 WITH REFLEXon HIV Screen 4th Generation wRfx Non-Reactive Normal Non Reactive [facility] Comment on above: Result Comment: HIV Negative HIV-1/HIV-2 antibodies and HIV-1 p24 antigen were NOT detected. There is no laboratory evidence of HIV infection. Performed By: #### C BC #### [facility] [address] [place] [address] Dr. Isi Forbes RPR QUANTon 06-05-2022 Rapid Plasma Reagin, Quant Non-Reactive Normal NonRea<1:1 [facility] Comment on above: Result Comment: Plea se Note: This test does not meet current guidelines for screening and diagnosis of syphilis. This test is intended for following treatment response in patients being treated for syphilis infection. To screen for syphilis infection, a reflex cascade that includes both RPR and a treponema-specific assay should be utilized, such as Treponema pallidum (Syphilis) Screening [place] (808935) or Rapid Plasma Reagin (RPR) Test With Reflex to Quantitative RPR and Confirmatory Treponema pallidum Antibodies (195019). Performed By: #### R PRQ #### [facility] [address] [place] [address] Dr. Isi Forbes RUBELLA AB IGGon 06-05-2022 Rubella Antibodies, IgG 6.87 index Normal Immune >0.99 [facility] Comment on above: Result Comment: Non- immune <0.90 Equivocal 0.90 - 0.99 Immune >0.99 Performed By: #### R PRQ #### [facility] [address] [place] [address] Dr. Isi Forbes CBC AUTO DIFFon 06-04-2022 BASO # 0.0 103/ul Normal 0.0-0.1 [facility] Comment on above: Performed By: #### C BC #### [facility] [address] [place] [address] Dr. Isi Forbes Basophils/100 WBC (Bld) 0.5 % Normal 0.2-2.0 [facility] Comment on above: Performed By: #### C BC #### [facility] [address] [place] [address] Dr. Isi Forbes EO # 0.1 103/ul Normal 0.0-0.7 [facility] Comment on above: Performed By: #### C BC #### [facility] [address] [place] [address] Dr. Isi Forbes Eosinophils/100 WBC (Bld) 1.5 % Normal 0.9-7.0 [facility] Comment on above: Performed By: #### C BC #### [facility] [address] [place] [address] Dr. Isi Forbes Erythrocyte distribution width (RBC) [Ratio] 12.1 % Normal 11.0-15.0 [facility] Comment on above: Performed By: #### C BC #### [facility] [address] [place] [address] Dr. Isi Forbes Hematocrit (Bld) [Volume fraction] 35.3 % Critically low 36.0-48.0 [facility] Comment on above: Performed By: #### C BC #### [facility] [address] [place] [address] Dr. Isi Forbes Hemoglobin (Bld) [Mass/Vol] 12.2 g/dL Normal 12.0-16.0 [facility] Comment on above: Performed By: #### C BC #### [facility] [address] [place] [address] Dr. Isi Forbes IG # 0.03 10e3/ul Normal 0.00-0.03 [facility] Comment on above: Performed By: #### C BC #### [facility] [address] [place] [address] Dr. Isi Forbes IG % 0.3 % Normal 0.0-0.5 [facility] Comment on above: Performed By: #### C BC #### [facility] [address] [place] [address] Dr. Isi Forbes LYMPH # 1.7 103/ul Normal 1.2-3.8 [facility] Comment on above: Performed By: #### C BC #### [facility] [address] [place] [address] Dr. Isi Forbes Lymphocytes/100 WBC (Bld) 20.1 % Critically low 20.5-60.0 [facility] Comment on above: Performed By: #### C BC #### [facility] [address] [place] [address] Dr. Isi Forbes MANUAL DIFF REQ NO Normal [facility] Comment on above: Performed By: #### C BC #### [facility] [address] [place] [address] Dr. Isi Forbes MCH (RBC) [Entitic mass] 30.7 pg Normal 26.7-34.0 [facility] Comment on above: Performed By: #### C BC #### [facility] [address] [place] [address] Dr. Isi Forbes MCHC (RBC) [Mass/Vol] 34.6 g/dL Normal 29.9-35.2 [facility] Comment on above: Performed By: #### C BC #### [facility] [address] [place] [address] Dr. Isi Forbes MCV (RBC) [Entitic vol] 88.9 fL Normal 81.0-99.0 [facility] Comment on above: Performed By: #### C BC #### [facility] [address] [place] [address] Dr. Isi Forbes MONO # 0.5 103/ul Normal 0.3-0.8 [facility] Comment on above: Performed By: #### C BC #### [facility] [address] [place] [address] Dr. Isi Forbes Monocytes/100 WBC (Bld) 5.4 % Normal 1.7-12.0 [facility] Comment on above: Performed By: #### C BC #### [facility] [address] [place] [address] Dr. Isi Forbes NEUT # 6.2 103/ul Normal 1.4-6.5 [facility] Comment on above: Performed By: #### C BC #### [facility] [address] [place] [address] Dr. Isi Forbes Neutrophils/100 WBC (Bld) 72.2 % Normal 43.0-75.0 [facility] Comment on above: Performed By: #### C BC #### [facility] [address] [place] [address] Dr. Isi Forbes Platelet mean volume (Bld) [Entitic vol] 9.4 fL Critically low 9.5-13.5 [facility] Comment on above: Performed By: #### C BC #### [facility] [address] [place] [address] Dr. Isi Forbes PLT 257 103/ul Normal 150-450 [facility] Comment on above: Performed By: #### C BC #### [facility] [address] [place] [address] Dr. Isi Forbes RBC 3.97 106/ul Critically low 4.20-5.40 [facility] Comment on above: Performed By: #### C BC #### [facility] [address] [place] [address] Dr. Isi Forbes WBC 8.6 103/ul Normal 4.0-11.0 [facility] Comment on above: Performed By: #### C BC #### [facility] [address] [place] [address] Dr. Isi Forbes CULTURE URINEon 06-04-2022 CULTURE URINE Culture Observations : LIGHT GROWTH OF MIXED GENITAL ALOK. NO POTENTIAL PATHOGENS SEEN. Normal [facility] Comment on above: Performed By: #### U RCX #### [facility] [address] [place] [address] Dr. Isi Forbes DRUG SCREEN RAPID (URINE)on 06-04-2022 AMP Negative Normal NEGATIVE [facility] Comment on above: Performed By: #### G TT3P #### [facility] [address] [place] [address] Dr. Isi Forbes BAR Negative Normal NEGATIVE [facility] Comment on above: Performed By: #### G TT3P #### [facility] [address] [place] [address] Dr. Isi Forbes BUP Negative Normal NEGATIVE [facility] Comment on above: Performed By: #### G TT3P #### [facility] [address] [place] [address] Dr. Isi Forbes BZO Negative Normal NEGATIVE [facility] Comment on above: Performed By: #### G TT3P #### [facility] [address] [place] [address] Dr. Isi Forbes BEATA Negative Normal NEGATIVE [facility] Comment on above: Performed By: #### G TT3P #### [facility] [address] [place] [address] Dr. Isi Forbes CUT-OFFS SEE BELOW Normal [facility] Comment on above: Result Comment: AMP [...] ng/mL Performed By: #### G TT3P #### [facility] [address] [address] [address] Isi Forbes DRUG CUT HEADER DRUG CLASS TEST SYSTEM CUT-OFF CONCENTRATIONS ARE FOLLOWS: Normal [facility] Comment on above: Performed By: #### G TT3P #### [facility] [address] [place] [address] Dr. Isi Forbes mAMP Negative Normal NEGATIVE [facility] Comment on above: Performed By: #### G TT3P #### [facility] [address] [address] [address] Isi Forbes MTD Negative Normal NEGATIVE [facility] Comment on above: Performed By: #### G TT3P #### [facility] [address] [address] [address] Isi Forbes OPI Negative Normal NEGATIVE [facility] Comment on above: Performed By: #### G TT3P #### [facility] [address] [place] [address] Dr. Isi Forbes OXY Negative Normal NEGATIVE [facility] Comment on above: Performed By: #### G TT3P #### [facility] [address] [address] [address] Isi Forbes PCP Negative Normal NEGATIVE [facility] Comment on above: Performed By: #### G TT3P #### [facility] [address] [place] [address] Dr. Isi Forbes PPX Negative Normal NEGATIVE [facility] Comment on above: Performed By: #### G TT3P #### [facility] [address] [place] [address] Dr. Isi Forbes TCA Negative Normal NEGATIVE [facility] Comment on above: Performed By: #### G TT3P #### [facility] [address] [address] [address] Isi Forbes THC Positive Abnormal NEGATIVE [facility] Comment on above: Performed By: #### G TT3P #### [facility] [address] [place] [address] Dr. Isi Forbes GLYCOHEMOGLOBIN A1Con 2021 ADA RECOMMENDATION SEE BELOW Normal [facility] Comment on above: Result Comment: ADA RECOMMENDED LIMIT 4.0 - 6.0 ADA THERAPEUTIC TARGET < 7.0 ACTION SUGGESTED > 7.0 Performed By: #### A 1C #### [facility] [address] [address] [address] Isi Forbes Glucose [Mass/Vol] 111 mg/dL Normal [facility] Comment on above: Performed By: #### A 1C #### [facility] [address] [place] [address] Dr. Isi Forbes HbA1c (Bld) [Mass fraction] 5.5 % Normal 4.5-6.2 [facility] Comment on above: Performed By: #### A 1C #### [facility] [address] [place] [address] Dr. Isi Forbes AUTUMN BOX TEST PT SEND OUTo n 06-04-2022 SENT TO REF LAB 06/04/2022 Normal [facility] Comment on above: Performed By: #### R PRQ #### [facility] [address] [place] [address] Dr. Isi Forbes TYPE AND SCREENon 06-04-2022 TYPE AND SCREEN Negative Normal [facility] Comment on above: Performed By: #### T NS #### [facility] [address] [place] [address] Dr. Isi Forbes US PREG TVon 05-18-2022 [...] FREDY DICK Date: 2022-05-18 05:51 Normal [facility] HCG,Urineon 11-04-2020 Beta HCG ( test) Ql (U) Negative Normal [facility] Comment on above: Result Comment: PERF ORMED BY: [address] [place] [id number] PATHOLOGIST SPRAY WORKER MIKE LECHUGA M.D. Performed By: #### U HCG #### [id number] [facility] Yassine 11-04-2020 L - -------- Specimen: [id number] Received: 11/04/20 Status: PRASAD Sandoval Num: [id number] Spec Type: Surgical Subm Dr: Esequiel Lyles MD Tissues: A Duodenum - Biopsy (DUODENAL BX) Procedures: HE Stain/2, Gross/Micro L4 -------- Patient Age/Sex Location Account Attending Physician -------- Debbi Prado 30/F [id number] Esequiel Lyles MD -------- SPEC NUM: RECD: 11/04/20 STATUS: PRASAD NICK NUM: [id number] LADAN: 11/04/[address] [facility] [address]: Esequiel Lyles MD ENTERED: 11/04/20 [facility] DR: SPEC TYPE: Surgical DEPT: S ORDERED: [...] Specimen: Received: 11/04/20 Status: PRASAD Sandoval Num: [id number] Spec Type: Surgical Subm Dr: Esequiel Lyles MD Tissues: A Duodenum - Biopsy (DUODENAL BX) Procedures: HE Stain/2, Gross/Micro L4 -------- Patient: Jenn Pradoa [id number] (Continued) -------- Specimen: Received: 11/04/20 (Continued) Signed (signature on file) Rhys Mckenzie MD 11/05/20 1050 -------- Specimen: Received: 11/04/20 Status: PRASAD Nick Num: [id number] Spec Type: Surgical Subm Dr: Esequiel Lyles MD Tissues: A Duodenum - Biopsy (DUODENAL BX) Procedures: HE Stain/2, Gross/Micro L4 -------- Patient: PradoDebbi [id number] (Continued) -------- Specimen: Received: 11/04/20 (Continued) CPT Codes 13599 -------- -------- Specimen: Received: 11/04/20 Status: PRASAD Slatersuzette Num: [id number] Spec Type: Surgical Subm Dr: Esequiel Lyles MD Tissues: A Duodenum - Biopsy (DUODENAL BX) Procedures: PAULINO Stain/2, Gross/Micro L4 -------- Patient: Debbi Prado [id number] (Continued) -------- Signed (signature on file) Rhys Mckenzie MD 11/05/20 1050 Normal [facility] [place] SARS-CoV-2 (COVID-19) RNA SARA+probe Ql (Unsp spec) Negative Normal Negative [facility] Comment on above: Order Comment: Healt hcare Worker?: N Result Comment: Refe rence: Negative Testing for SARS-CoV-2 by RT-PCR This test was developed and its performance characteristics determined by [employer] (Topic) and validated at the [facility]. This test has not been FDA cleared [...] is terminated or revoked sooner. PERFORMED BY: [place] [address] PATHOLOGIST SPRAY WORKER MIKE LECHUGA M.D. Performed By: #### C OVID-19 [facility] #### [address] Coding Summaryon 05-26-2020 Coding Summary CODING DATE: 05/26/2020 [facility] STATUS: Home PAYOR: [employer] ADMIT DX: [...] Ashleigh Posada Date Saved: 05/26/2020 08:27 am [facility] Consent Formson 05-26-2020 Consent Forms [id number] [facility]erson 05-26-2020 Provider Orders [id number] [facility] 2019 Novel Coronavirus (CoVI D-19), SARA LCon 05-24-2020 SARS-CoV-2, SARA (COVID-19) LC Not Detected Not Detected [facility] Comment on above: Order Comment: [id number] [phone] Result Comment: This nucleic acid amplification test was developed and its performance characteristics determined by [facility]. Nucleic acid amplification tests include PCR and [...] detected) result in this assay. Performed At: [facility] [address] [employer] [facility] [place] [id number] Rere Bejarano MD Ph:[phone] Performed By: #### 6 [id number] ####[facility] (DEFAULT)[address] [place] [address] Progress Note - Nurseon Progress Note - Nurse Nasal swab perform ed without complication. Patient tolerated well. Education given. Patient verbalized understanding. [Electronically Signed on: 05/22/2020 11:25 EST] Genesis Ndiaye RN [Verified on: 05/22/2020 11:25 EST] Genesis Ndiaye RN [facility] Ambulatory Clinical Summaryo n 04-11-2020 Ambulatory Clinical Summary {[id number] [facility] Coding Summaryon 02-21-2020 Coding Summary CODING DATE: 02/21/2020 [facility] STATUS: Home PAYOR: León Myers ADMIT DX: [...] Ashleigh Posada Date Saved: 02/21/2020 02:14 pm [facility] Consent Formson 02-18-2020 Consent Forms [id number] .00OTGTIFF [facility] 2019 Novel Coronavirus (CoVI D-19), SARA LCon 02-16-2020 SARS-CoV-2, SARA (COVID-19) LC Not Detected Not Detected [facility] Comment on above: Result Comment: This test was developed and its performance characteristics determined by [facility]. This test has not been FDA cleared [...] detected) result in this assay. Performed At: [facility] [address] [employer] [facility], [place] [id number] Rere Bejarano MD Ph:[phone] Performed By: #### 6 [id number] ####[facility] (DEFAULT)[address] [place] [address] Provider Orderson 02-15-2020 Provider Orders [id number] .[facility] Orderson 02-14-2020 Provider Orders [id number] .[facility], Quant.on 02-13-2020 IgA [Mass/Vol] 202 mg/dL 87-352 [facility] Comment on above: Result Comment: Perf ormed at: [facility] [address] [id number] PhD Dennis Toussaint Performed By: #### 2 703050, 8734387, 01544881, 3842463, 54342764, 49171908, 75265566 ####[address] [place] [address] t-TRANSGLUTAMINASE IgAon tTG IgA Qn (S) <2 0-3 [facility] Comment on above: Result Comment: Nega tive 0 - 3 Weak Positive 4 - 10 Positive >10 Tissue Transglutaminase (tTG) has been identified as the endomysial antigen. Studies have demonstr- ated that endomysial IgA antibodies have over 99% specificity for gluten sensitive enteropathy. Performed at: [address] [id number] PhD Dennis Toussaint Performed By: #### 2 840826, 8247092, 58544614, 7266218, 44188333, 19652480, 59666504 #### [facility] [address] [place] [address] Coding Summary.on 02-12-2020 Coding Summary. CODING DATE: 02/12/2020 FINAL [facility] STATUS: Home (Routine DC) PAYOR: Commercial [...] CphT Date Saved: 02/12/2020 09:01 am Normal [facility] Auto Diffon 02-11-2020 Basophils/100 WBC (Bld) 0.5 % Normal 0.0-2.0 [facility] Comment on above: Order Comment: Order Added by Discern Expert. Performed By: #### 2 222123, 2940780, 54841680, 4834031, 24149168, 44424175, 70528632 #### [facility] [address] [place] [address] Basophils/Leukocytes Auto (Bld) [Pure # fraction] 0.0 E9/L Normal 0.0-0.2 [facility] Comment on above: Order Comment: Order Added by Discern Expert. Performed By: #### 2 044186, 3445782, 17364159, 9334977, 12135613, 64186731, 01213444 #### [facility] [address] [place] [address] Eosinophils/100 WBC (Bld) 1.7 % Normal 0.0-8.0 [facility] Comment on above: Order Comment: Order Added by Discern Expert. Performed By: #### 2 065919, 3671945, 57922405, 7177047, 65673956, 19463476, 58523567 #### [facility] [address] [place] [address] Eosinophils/Leukocyte s Auto (Bld) [Pure # fraction] 0.2 E9/L Normal 0.0-0.5 [facility] Comment on above: Order Comment: Order Added by Discern Expert. Performed By: #### 2 376844, 2114027, 63478298, 8694515, 44982048, 35230917, 29844059 #### [facility] [address] [place] [address] Lymphocytes/100 WBC (Bld) 21.9 % Normal 14.0-50.0 [facility] Comment on above: Order Comment: Order Added by Discern Expert. Performed By: #### 2 142724, 8862981, 76991948, 4551661, 96845947, 94483564, 15099230 #### [facility] [address] [place] [address] Lymphocytes/Leukocyte s Auto (Bld) [Pure # fraction] 2.0 E9/L Normal 1.0-4.0 [facility] Comment on above: Order Comment: Order Added by Discern Expert. Performed By: #### 2 184730, 0793815, 77990344, 5819158, 51094648, 81981483, 80471882 #### [facility] [address] [place] [address] Monocytes/100 WBC (Bld) 7.6 % Normal 4.0-14.0 [facility] Comment on above: Order Comment: Order Added by Lila Expert. Performed By: #### 2 827946, 3097890, 27874812, 0919652, 79267221, 44084876, 60451607 #### [facility] [address] [place] [address] Monocytes/Leukocytes Auto (Bld) [Pure # fraction] 0.7 E9/L Normal 0.2-1.0 [facility] Comment on above: Order Comment: Order Added by Discern Expert. Performed By: #### 2 719901, 9119032, 46916313, 1803408, 17497684, 01366241, 17956728 #### [facility] [address] [place] [address] Neutrophils/100 WBC (Bld) 68.3 % Normal 36.0-75.0 [facility] Comment on above: Order Comment: Order Added by Discern Expert. Performed By: #### 2 129177, 2878705, 00330175, 6702280, 29434522, 52505960, 26944893 #### [facility] [address] [place] [address] Neutrophils/Leukocyte s Auto (Bld) [Pure # fraction] 6.2 E9/L Normal 2.0-7.5 [facility] Comment on above: Order Comment: Order Added by Discern Expert. Performed By: #### 2 849521, 9517975, 70577661, 3828347, 53885822, 87842034, 22070358 #### [facility] [address] [place] [address] CBC w/ Auto Diffon 0 Erythrocyte distribution width (RBC) [Ratio] 13.1 % Normal 10.9-14.2 [facility] Comment on above: Performed By: #### 2 328022, 8939743, 71600075, 4489548, 66438815, 99496298, 48037189 #### [facility] [address] [place] [address] Hematocrit (Bld) [Volume fraction] 41.8 % Normal 34.0-46.0 [facility] Comment on above: Performed By: #### 2 727124, 6544887, 22669598, 8756589, 61314351, 02482597, 91699698 #### [facility] [address] [place] [address] Hemoglobin (Bld) [Mass/Vol] 13.9 g/dL Normal 12.0-16.0 [facility] Comment on above: Performed By: #### 2 147047, 9380749, 89457634, 6938439, 93565873, 25989103, 85318325 #### [facility] [address] [place] [address] MCH (RBC) [Entitic mass] 30.7 pg Normal 27.0-34.0 [facility] Comment on above: Performed By: #### 2 566467, 5156518, 78243147, 8963080, 76709687, 81829292, 91450043 #### [facility] [address] [place] [address] MCHC (RBC) [Mass/Vol] 33.4 g/dL Normal 31.4-36.0 [facility] Comment on above: Performed By: #### 2 729208, 3857016, 72605611, 5504091, 83861018, 72820553, 42108300 #### [facility] [address] [place] [address] MCV (RBC) [Entitic vol] 92.1 fL Normal 80.0-100.0 [facility] Comment on above: Performed By: #### 2 693043, 4686636, 81801793, 2704553, 50904997, 08849836, 07480623 #### [facility] [address] [place] [address] Platelet mean volume (Bld) [Entitic vol] 7.7 fL Normal 6.4-10.8 [facility] Comment on above: Performed By: #### 2 795421, 3937197, 95397522, 9247602, 76158471, 71796179, 11491241 #### [facility] [address] [place] [address] Platelets (Bld) [#/Vol] 338.0 E9/L Normal 150.0-500.0 [facility] Comment on above: Performed By: #### 2 828246, 5267249, 92184788, 5098803, 05658803, 97085205, 47986753 #### [facility] [address] [place] [address] RBC (Bld) [#/Vol] 4.5 E12/L Normal 4.3-5.9 [facility] Comment on above: Performed By: #### 2 275004, 1107668, 59911686, 5951373, 23645576, 56158010, 88779353 #### [facility] [address] [place] [address] WBC corrected for nucl RBC Auto (Bld) [#/Vol] 9.1 E9/L Normal 4.0-11.0 [facility] Comment on above: Performed By: #### 2 103598, 5438597, 81141041, 6175451, 35446409, 37521628, 12865305 #### [facility] [address] [place] [address] [facility] Albumin [Mass/Vol] 1.4 g/dL Normal 1.1-2.2 [facility] Comment on above: Performed By: #### 2 597966, 1324754, 99431349, 4232620, 68951975, 40187083, 53499885 #### [facility] [address] [place] [address] Albumin [Mass/Vol] 4.5 g/dL Normal 3.3-5.0 [facility] Comment on above: Performed By: #### 2 476796, 4178018, 86773525, 1019895, 04801322, 09644340, 17439638 #### [facility] [address] [place] [address] ALP [Catalytic activity/Vol] 58 Int._Unit/L Normal 21-98 [facility] Comment on above: Performed By: #### 2 602014, 7948085, 11488840, 5014795, 31344359, 40467871, 96731526 #### [facility] [address] [place] [address] ALT No additional P-5'-P [Catalytic activity/Vol] 33 Int._Unit/L Normal 6-46 [facility] Comment on above: Performed By: #### 2 836350, 0452959, 78228226, 5295730, 76873984, 93652187, 04587705 #### [facility] [address] [place] [address] Anion gap [Moles/Vol] 12 mmol/L Normal 6-16 [facility] Comment on above: Performed By: #### 2 820622, 4203303, 99755740, 1878392, 74731206, 18351730, 08518922 #### [facility] [address] [place] [address] AST [Catalytic activity/Vol] 22 Int._Unit/L Normal 5-43 [facility] Comment on above: Performed By: #### 2 081964, 7675014, 11192218, 2964544, 19363654, 14746668, 81942330 #### [facility] [address] [place] [address] Bilirubin [Mass/Vol] 0.5 mg/dL Normal 0.0-1.1 [facility] Comment on above: Performed By: #### 2 942107, 6483385, 89714529, 3314874, 61271226, 57952457, 70538035 #### [facility] [address] [place] [address] Calcium [Mass/Vol] 9.2 mg/dL Normal 8.9-11.1 [facility] Comment on above: Performed By: #### 2 112776, 8718549, 05044853, 8817094, 24283872, 08229913, 49323030 #### [facility] [address] [place] [address] Chloride [Moles/Vol] 106 mmol/L Normal 101-111 [facility] Comment on above: Performed By: #### 2 674109, 8636812, 90272205, 5168208, 51860253, 69582049, 42402524 #### [facility] [address] [place] [address] CO2 [Moles/Vol] 23 mmol/L Normal 21-31 [facility] Comment on above: Performed By: #### 2 027670, 4685227, 13502777, 5655830, 51752765, 58836006, 54650267 #### [facility] [address] [place] [address] Creatinine [Mass/Vol] 0.6 mg/dL Normal 0.5-1.3 [facility] Comment on above: Performed By: #### 2 048073, 3014627, 27041893, 9160265, 69868537, 64356516, 31548261 #### [facility] [address] [place] [address] Globulin (S) [Mass/Vol] 3.3 g/dL Normal 1.4-4.0 [facility] Comment on above: Performed By: #### 2 995405, 7690997, 69948322, 1210781, 74776125, 86622829, 35970860 #### [facility] [address] [place] [address] Glucose [Mass/Vol] 94 mg/dL Normal 55-199 [facility] Comment on above: Result Comment: If t his glucose result represents a fasting glucose, interpretation should refer to the following reference range: 55-99 mg/dL Performed By: #### 2 998228, 2325835, 67347965, 7794716, 54677871, 36841291, 48547856 #### [facility] [address] [place] [address] Potassium [Moles/Vol] 3.9 mmol/L Normal 3.5-5.3 [facility] Comment on above: Performed By: #### 2 581987, 9970231, 74439848, 8214286, 52737666, 24293659, 50301415 #### [facility] [address] [place] [address] Protein [Mass/Vol] 7.8 g/dL Normal 6.0-7.8 [facility] Comment on above: Performed By: #### 2 031923, 0755363, 07326470, 0532680, 96157353, 03116308, 26810307 #### [facility] [address] [place] [address] Sodium [Moles/Vol] 137 mmol/L Normal 135-145 [facility] Comment on above: Performed By: #### 2 837487, 7191172, 60673600, 8673810, 76766658, 52489485, 69194244 #### [facility] [address] [place] [address] Urea nitrogen [Mass/Vol] 12 mg/dL Normal 5-21 [facility] Comment on above: Performed By: #### 2 847032, 4376132, 17571832, 4527955, 22416796, 68257509, 22624472 #### [facility] [address] [place] [address] Urea nitrogen/Creatinine [Mass ratio] 20 No Units Normal 10-20 [facility] Comment on above: Performed By: #### 2 947047, 4294364, 84360061, 0256958, 01370638, 76319179, 86975092 #### [facility] [address] [place] [address] Coding Summaryon 02-11-2020 Coding Summary CODING DATE: 02/11/2020 [facility] STATUS: Home PAYOR: [employer] ADMIT DX: [...] Connie Akers Date Saved: 02/11/2020 08:49 am [facility] Consent for Treatmenton 01-16 Consent for Treatment [id number] .00CD:127 Normal [facility] Gastroenterology Office/Clin ic Noteon 02-11-2020 Gastroenterology [...] q8hr, # 20 tab(s), Refills(s) 1, Pharmacy: [id number], 167.64, cm, 02/11/20 15:12:00 EDT, Height/Length [...] day(s), # 120 cap(s), Refills(s) 11, Pharmacy: [facility]/pharmacy #[id number], 167.64, cm, 02/11/20 15:12:00 EDT, Height/Length [...] day(s), # 20 tab(s), Refills(s) 0, Pharmacy: [facility]/pharmacy #[id number], 167.64, cm, 02/11/20 15:12:00 EDT, Height/Length Measured, 90.4, kg, 02/11/20 15:12:00 EDT, Weight Measured 6. Cyclic vomiting syndrome (R11.15: Cyclical vomiting syndrome unrelated to migraine) Advised to stop marijuana use Follow-up With When Contact Information Emma GUTIERREZ MD Within 2 weeks [facility] [address] [place] [address]- Additional Instructions: Patient Education Nausea, [...] Family History Family history is negative Normal [facility] Comment on above: Result Comment: Elec tronically Signed By: Emma GUTIERREZ MD\.br\Date and Time Signed: 02/11/20 15:55 EDT Patient Educationon 02-11-20 Patient Education Family Medicine Nausea, Adult Nausea [...] Document Reviewed: 03/15/2012 ExitCare? Patient Information ?2013 [employer]. Normal [facility] Sed Rate Automatedon 020 ESR (Bld) [Velocity] 10 mm/h Normal 0-[address] [facility] Comment on above: Performed By: #### 2 885422, 4092727, 13962862, 6051587, 11809892, 26492795, 16229978 #### [facility] [address] [place] [address] eGFRon 02-11-2020 GFR/1.73 sq M predicted among blacks MDRD (S/P/Bld) [Vol rate/Area] mL/min/{1.73_m2} Normal >=59 [facility] Comment on above: Order Comment: Order added by Discern Expert. Result Comment: eGFR is race adjusted. AA=. Performed By: #### 2 924434, 9544748, 08530155, 4138624, 97079375, 42303390, 41344399 #### [facility] [address] [place] [address] GFR/1.73 sq M predicted among non-blacks MDRD (S/P/Bld) [Vol rate/Area] mL/min/{1.73_m2} Normal >=59 [facility] Comment on above: Order Comment: Order added by Discern Expert. Result Comment: Jumbo Operator eulogio kidney disease could be indicated at eGFR's of less than 60 mL/min/1.73m2. Kidney failure is indicated at less than 15 mL/min/1.73m2. Performed By: #### 2 973886, 3318458, 88426779, 8589774, 55614423, 82701062, 27516952 #### [facility] [address] [place] [address] Historical Records Officeon 02-08-2020 Historical Records Office [id number]. 00CD:127 Normal [facility] Lab - Immunology/Serology Re sultson 01-31-2020 Lab - Immunology/Serology Results [id number] [facility] SARS-CoV-2 (COVID-19) PCRon 01-30-2020 COVID-19 PCR Not Detected Normal Not Detected [facility] Comment on above: Order Comment: Sent to [facility] Performed By: #### 6 [id number] ####[facility] (DEFAULT)[address] [place] [address] Provider Orderson 01-29-2020 Provider Orders [id number] .00OTGTIFF [facility] Clinical Note 12-09-2022 Note Date & Type [...] Spinal with Duramorph. SURGEON: Becki Mae D.O. ASSOCIATE PROFESSOR PLANT PATHOLOGY: DANIELA Koch URINE OUTPUT: Yellow and clear. BLOOD LOSS: 575 mL. FINDING: Viable male . Apgars 9 at 1, 9 at 5. [...] patient's uterus and extended laterally digitally. The infant was then delivered atraumatically after the bladder blade was removed in the cephalic position. The cord was clamped and cut. Cord blood was obtained. The was handed off to awaiting team. The [...] the Recovery Room in stable condition. The [facility] Summary Purpose Family History No Family History Records FoundNo Family History Records FoundNo Family History Records FoundNo Family History Records FoundNo Family History Records Found Advance Directives No Advanced Directives Records FoundNo Advanced Directives Records FoundNo Advanced Directives Records FoundNo Advanced Directives Records FoundNo Advanced Directives Records Found Additional Source Comments INFORMATION SOURCE (unrecogn ized section and content) DATE CREATED AUTHOR 04/24/2020 [facility] DATE CREATED AUTHOR AUTHOR'S ORGANIZ ATION 05/26/2020 [facility] DATE CREATED AUTHOR AUTHOR'S ORGANIZ ATION 08/02/2021 [facility] DATE CREATED AUTHOR AUTHOR'S ORGANIZ ATION 12/24/2022 [facility] DATE CREATED AUTHOR AUTHOR'S ORGANIZ ATION 11/27/2023 [facility] dical Specialists [facility] FOR RECORDS PERTAINING TO PATIENTS WHO ARE [...] BE BASED ON THE PRIMARY CLINICAL RECORDS. [employer] provides no warranty or guarantee of the accuracy or completeness of information in this document.
== END 2024-01-12 19:44 | disposition home or self-care (01) ==
LOC: LAB 19:43
PROVIDERS: PCP Family Medicine; Visit Provider Obstetrics & Gynecology
DX: Z01.419 Encounter for gynecological examination (general) (routine) without abnormal findings (principal)
CPT/HCPCS: 87624; 88175

== ENCOUNTER 2024-01-24 09:50 | Outpatient (OUT) | payer BC, SELFPAY ==
[2024-01-24 11:27] LABS: Basophils Percent Auto 0.3 % (0.2-2.0); Eosinophils Absolute Auto 0.2 10^3/uL (0.0-0.7); Eosinophils Percent Auto 1.5 % (0.9-7.0); Hematocrit 33.9 % (36.0-48.0); Hemoglobin 11.1 g/dL (12.0-16.0); Immature Granulocytes Pct Auto 0.9 % (0.0-0.5); Lymphocytes Absolute Auto 2.2 10^3/uL (1.2-3.8); Lymphocytes Percent Auto 19.9 % (20.5-60.0); Mean Corpuscular HGB Conc 32.7 g/dL (29.9-35.2); Mean Corpuscular Hemoglobin 28.3 pg (26.7-34.0); Mean Corpuscular Volume 86.5 fL (81.0-99.0); Mean Platelet Volume 9.6 fL (9.5-13.5); Monocytes Absolute Auto 0.8 10^3/uL (0.3-0.8); Monocytes Percent Auto 6.9 % (1.7-12.0); Neutrophils Absolute Auto 7.8 10^3/uL (1.4-6.5); Neutrophils Percent Auto 70.5 % (43.0-75.0); Platelet Count 310 10^3/uL (150-450); Red Blood Count 3.92 10^6/uL (4.20-5.40); Red Cell Distribution Width 13.2 % (11.0-15.0); White Blood Count 11.1 10^3/uL (4.0-11.0)
[2024-01-24 11:45] LABS: Glucose 1 Hour 149 mg/dL (<130)
[2024-01-26 01:09] LABS: AFP Value 31.7 ng/mL (.); Gest. Age on Collection Date 16.3 weeks (.); Gestat. Age Based On Ultrasound (.); Insulin Dep Diabetes No (.); Maternal Age At EDD 35.8 yr (.); OSBR Risk 1 IN 10000 (.); Results Report (.)
== END 2024-01-24 09:51 | disposition home or self-care (01) ==
LOC: LAB 09:51
PROVIDERS: PCP Family Medicine; Visit Provider Obstetrics & Gynecology
DX: Z34.92 Encounter for supervision of normal pregnancy, unspecified, second trimester (principal); Z13.1 Encounter for screening for diabetes mellitus
CPT/HCPCS: 36415; 82105; 82950; 85025

== ENCOUNTER 2024-02-02 12:22 | Outpatient (OUT) | payer BC, SELFPAY ==
[2024-02-02 12:57] LABS: Glucose Fasting 90 mg/dL (<95)
[2024-02-02 14:00] LABS: Glucose 1 Hour 143 mg/dL (<180)
[2024-02-02 15:19] LABS: Glucose 2 Hour 130 mg/dL (<155)
[2024-02-02 15:59] LABS: Glucose 3 Hour 100 mg/dL (<140)
== END 2024-02-02 12:23 | disposition home or self-care (01) ==
LOC: LAB 12:22
PROVIDERS: PCP Family Medicine; Visit Provider Obstetrics & Gynecology
DX: R73.09 Other abnormal glucose (principal)
CPT/HCPCS: 36415; 82951; 82952

== ENCOUNTER 2024-02-24 08:58 | Outpatient (OUT) | payer BC, SELFPAY ==
--- NOTE | 2024-02-24 09:06 | US_ITS ---
[address] [address] Patient Name: VERO ANAYA MRN: [id number] date: 1990 Sex: F Assigned Patient Location: US Current Patient Location: US Accession/Order Number: [id number] Exam Date: 02/24/2024 09:14 Report Date: 02/24/2024 11:00 At the request of: SHEEBA CHANEY Procedure: US OB anatomy EXAMINATION: US OB anatomy, US OB cervical length HISTORY: Screening For Anatomic Survey Z36.89 COMPARISON: Ultrasound OB transvaginal 11/25/2023 TECHNIQUE: Transabdominal sonographic examination was performed for obstetrical and evaluation. FINDINGS: Number: 1 Heart Rate: 148.35 bpm H.B. /min Amniotic Fluid Volume: Subjectively normal Placental Location: POSTERIOR with lower margin 2.4 cm from os Cervix Length: 4.68 cm ; closed. ANATOMY: Normal Structures -cerebellum, choroid plexus, cisterna magna, lateral cerebral ventricles, orbits, midline falx, hard palate, four-chamber heart, RVOT, LVOT, stomach, kidneys, bladder, umbilical cord insertion into abdomen, three-vessel cord, cervical spine, thoracic spine, lumbar spine, sacral spine, right upper extremity, left upper extremity, right lower extremity, left lower extremity. SUBOPTIMALLY SEEN: None ABNORMALITIES: None BIOMETRY: BPD: 4.70 cm; 20 weeks 1 day; 28.30 % HC: 18.30 cm; 20 weeks 5 days; 39.60 % AC: 16.29 cm; 21 weeks 3 days; 65.10 % FL: 3.54 cm; 21 weeks 1 day; 58.30 % EFW:404.94 g; 70.90 % FL/AC: 21.73 FL/BPD: 75.33 HC/AC: 1.12 GESTATIONAL AGE: Age by EDC: 20 weeks 5 days Age by current US: 20 weeks 6 days FREDDIE by current US: 2024-07-07 FREDDIE by EDC: 2024-07-08 US/US OB anatomy IMPRESSION: 1. Single live intrauterine with growth detailed above. 2. Low-lying posterior placenta. Electronically authenticated by: FREDY DICK Date: 02/24/2024 11:00
--- NOTE | 2024-02-24 09:06 | US_ITS ---
[address] [address] Patient Name: VERO ANAYA MRN: [id number] date: 1990 Sex: F Assigned Patient Location: US Current Patient Location: US Accession/Order Number: [id number] Exam Date: 02/24/2024 09:14 Report Date: 02/24/2024 11:00 At the request of: SHEEBA CHANEY Procedure: US OB cervical length EXAMINATION: US OB anatomy, US OB cervical length HISTORY: Screening For Anatomic Survey Z36.89 COMPARISON: Ultrasound OB transvaginal 11/25/2023 TECHNIQUE: Transabdominal sonographic examination was performed for obstetrical and evaluation. FINDINGS: Number: 1 Heart Rate: 148.35 bpm H.B. /min Amniotic Fluid Volume: Subjectively normal Placental Location: POSTERIOR with lower margin 2.4 cm from os Cervix Length: 4.68 cm ; closed. ANATOMY: Normal Structures -cerebellum, choroid plexus, cisterna magna, lateral cerebral ventricles, orbits, midline falx, hard palate, four-chamber heart, RVOT, LVOT, stomach, kidneys, bladder, umbilical cord insertion into abdomen, three-vessel cord, cervical spine, thoracic spine, lumbar spine, sacral spine, right upper extremity, left upper extremity, right lower extremity, left lower extremity. SUBOPTIMALLY SEEN: None ABNORMALITIES: None BIOMETRY: BPD: 4.70 cm; 20 weeks 1 day; 28.30 % HC: 18.30 cm; 20 weeks 5 days; 39.60 % AC: 16.29 cm; 21 weeks 3 days; 65.10 % FL: 3.54 cm; 21 weeks 1 day; 58.30 % EFW:404.94 g; 70.90 % FL/AC: 21.73 FL/BPD: 75.33 HC/AC: 1.12 GESTATIONAL AGE: Age by EDC: 20 weeks 5 days Age by current US: 20 weeks 6 days FREDDIE by current US: 2024-07-07 FREDDIE by EDC: 2024-07-08 US/US OB cervical length IMPRESSION: 1. Single live intrauterine with growth detailed above. 2. Low-lying posterior placenta. Electronically authenticated by: FREDY DICK Date: 02/24/2024 11:00
== END 2024-02-24 08:59 | disposition home or self-care (01) ==
PROVIDERS: PCP Family Medicine; Visit Provider Physician Assistant
DX: O44.42 Low lying placenta NOS or without hemorrhage, second trimester (principal); Z36.89 Encounter for other specified antenatal screening; Z3A.20 20 weeks gestation of pregnancy
CPT/HCPCS: 76805; 76817

== ENCOUNTER 2024-03-12 15:17 | Observation (INO) | payer BC, SELFPAY ==
[2024-03-12 15:44] VITALS: BP 122/64; PULSE 103
[2024-03-12 16:16] LABS: Bilirubin Urine NEGATIVE (NEGATIVE); Blood Urine NEGATIVE (NEGATIVE); Clarity Urine CLEAR (CLEAR); Color Urine LT. YELLOW (YELLOW); Glucose Urine UA NEGATIVE (NEGATIVE); Ketones Urine NEGATIVE (NEGATIVE); Leukocyte Esterase Urine NEGATIVE (NEGATIVE); Nitrite Urine NEGATIVE (NEGATIVE); Protein Urine NEGATIVE (NEG/TRACE); Specific Gravity Urine >=1.030 (1.005-1.025); Urobilinogen Urine 0.2 EU/dL (0.2-1.0)
[2024-03-12 16:20] LABS: Urine Microscopic Indicated NO
--- NOTE | 2024-03-12 16:34 | US_ITS ---
[address] [address] Patient Name: VERO ANAYA MRN: [id number] date: 1990 Sex: F Assigned Patient Location: [facility] Current Patient Location: Accession/Order Number: [id number] Exam Date: 03/12/2024 16:48 Report Date: 03/12/2024 17:58 At the request of: BECKI TUCKER Procedure: US OB cervical length EXAM: US OB cervical length HISTORY: cramping COMPARISON: None. TECHNIQUE: Limited pelvic ultrasound for evaluation of cervical length FINDINGS and impression: A single live fetus in cephalic position, lies longitudinally. heart rate measures 144 bpm. The cervix is closed, measuring 4.4 cm. Electronically authenticated by: KEIRY ARECHIGA Date: 03/12/2024 17:58
== END 2024-03-12 17:48 | disposition home or self-care (01) ==
LOC: FBC 15:18
PROVIDERS: Admitting Provider Obstetrics & Gynecology; PCP Family Medicine; Visit Provider Obstetrics & Gynecology
DX: O26.892 Other specified pregnancy related conditions, second trimester (principal); R10.9 Unspecified abdominal pain; R42 Dizziness and giddiness; R51.9 Headache, unspecified; O26.812 Pregnancy related exhaustion and fatigue, second trimester; O09.212 Supervision of pregnancy with history of pre-term labor, second trimester; Z3A.23 23 weeks gestation of pregnancy
CPT/HCPCS: 76817; 81003; G0378; G0379

== ENCOUNTER 2024-04-05 08:34 | Outpatient (OUT) | payer BC, SELFPAY ==
--- NOTE | 2024-04-05 | US_ITS ---
[address] [address] Patient Name: VERO ANAYA MRN: [id number] date: 1990 Sex: F Assigned [facility] Accession/Order Number: [id number] Exam Date: 04/05/2024 08:36 Report Date: 04/05/2024 10:34 At the request of: BECKI TUCKER Procedure: US OB placenta EXAM: US OB placenta, US OB cervical length HISTORY: LOW LYING PLACENTA COMPARISON: 03/12/2024 TECHNIQUE: Grayscale and color ultrasound FINDINGS: position: Cephalic presentation, longitudinal lie Placenta: Posterior, the placental edge is 3.2 cm from the internal os Heart rate: 145 beats minute Cervix: 4.2 cm, tiny amount of fluid in the endocervical canal which is dilated 1 mm. Clinical age: 26 weeks 4 days Clinical FREDDIE: 07/08/2024 US/US OB placenta IMPRESSION: Closed cervix measuring 4.2 cm The placental edge is 3.2 cm from the internal cervical os Electronically authenticated by: ASHLEE STOVER Date: 04/05/2024 10:34
--- OUTSIDE RECORDS SUMMARY | 2024-04-05 08:37 | XMS_ITS | CCD ---
Author Organization [facility] Care Team Providers Care Textile Supervisor Name Role Phone JUAN ., DR MARTIN Admitting Unavailabl e KARASIK [...] DR NONE LISTED Primary Care Unavaila ble ZIEBER, [...] Unavailable ZIEBER, DR FREDY Copeland Consulting Unavailable SERVICES, [facility] Unava ilable RALPH CISNEROS Attending Unavailable KARCHJOSE FAROOQ Attending Unavailable JOSE LEONARDO Referring Unavailable SERVICES, [facility] Unava ilable GARRETT, BECKI Attending Unavailable GARRETT, BECKI Attending Unavailable GARRETT, BECKI Attending Unavailable GARRETT, BECKI Attending Unavailable GARRETT, BECKI Attending Unavailable RITU, SHEEBA Attending Unavailable GARRETT, BECKI Attending Unavailable RITU, SHEEBA Attending Unavailable GARRETT, BECKI Attending Unavailable Allergies Allergy Classification Reported Allergen(s) Allergy Type Date of Onset Reaction(s) Facility Macrolides (antibiotic) (1 source) Azithromycin; Translations: [AZITHROMYCIN] Drug Allergy 12-01-2016 [facility] Repository (1 source) Azithromycin Drug Allergy 12-16-2013 [facility] Repository Problems Active Problems Problem Classification Problem Date Documented Da te Episodic/Chronic Diabetes mellitus without complication (1 source) Other abnormal glucose; Translations: [OTHER ABNORMAL GLUCOSE] Onset: 10-31-2022 Episodic Diabetes or abnormal glucose tolerance complicating ; childbirth; or the puerperium (4 sources) Abnormal glucose complicating ; Translations: [ABNORMAL GLUCOSE COMP ] Onset: 10-26-2022 Episodic E Codes: Fall (1 source) Fall Onset: 01-20-2024 Early or threatened labor (4 sources) False labor before 37 completed weeks of gestation, third trimester; Translations: [FALSE LABR BEFOR 37 WK GEST 3RD TRI] Onset: 10-27-2022 Episodic Mood disorders (1 source) Bipolar disorder, unspecified; Translations: [BIPOLAR DISORDER UNSPECIFIED] Onset: 12-14-2022 Chronic Nausea and vomiting (1 source) Nausea; Translations: [NAUSEA] Onset: 11-03-2022 Episodic Open wounds of head; neck; and trunk (1 source) Laceration without foreign body of right ear, initial encounter; Translations: [Laceration without foreign body of right ear, initial encounter] Onset: 01-20-2024 Episodic Other aftercare (1 source) Other care home (current) drug therapy; Translations: [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] Onset: 12-14-2022 Episodic Other [...] [Cannabis use, unspecified, uncomplicated] Onset: 11-03-2022 Episodic Syncope (1 source) Syncope and collapse; Translations: [Syncope and collapse] Onset: 01-20-2024 Episodic Unclassified (1 source) EMS Onset: 01-20-2024 Viral infection (1 source) Herpesviral infection, unspecified; [...] Test Name Value Interpretation Reference Range Facility CBC AND AUTO DIFFon 01-20-20 24 ABSOLUTE BASOPHIL 0.1 X10E9/L Normal 0.0-0.2 [facility] Comment on above: Performed By: #### Melia NICOLE CMP, 67696-6 #### [facility] ([id number]) [address] [place] [address] 32601 ABSOLUTE NEUTROPHIL 8.1 X10E9/L High 1.5-6.6 [facility] Comment on above: Performed By: #### Melai NICOLE CMP, 81069-1 #### [facility] ([id number]) [address] [place] [address] 04641 Basophils/100 WBC (Bld) 0.5 % Normal [facility] Comment on above: Performed By: #### Melia NICOLE CMP, 68289-2 #### [facility] ([id number]) [address] [place] [address] 16809 Eosinophils (Bld) [#/Vol] 0.2 10*3/uL Normal 0.0-0.4 [facility] Comment on above: Performed By: #### Melia NICOLE CMP, 34570-3 #### [facility] ([id number]) [address] [place] [address] 00214 Eosinophils/100 WBC (Bld) 1.4 % Normal [facility] Comment on above: Performed By: #### Melia NICOLE CMP, 48766-3 #### [facility] ([id number]) [address] [place] [address] 99626 Erythrocyte distribution width (RBC) [Ratio] 14.4 % Normal 11.5-15.0 [facility] Comment on above: Performed By: #### Melia NICOLE CMP, 08787-1 #### [facility] ([id number]) [address] [place] [address] 13077 Hematocrit (Bld) [Volume fraction] 32.4 % Low 35-47 [facility] Comment on above: Performed By: #### Melia NICOLE CMP, 01235-7 #### [facility] ([id number]) [address] [place] [address] 21930 Hemoglobin (Bld) [Mass/Vol] 10.9 g/dL Low 11.7-15.5 [facility] Comment on above: Performed By: #### Melia NICOLE CMP, 58418-9 #### [facility] ([id number]) [address] [place] [address] 89420 Lymphocytes (Bld) [#/Vol] 2.0 10*3/uL Normal 1.0-3.5 [facility] Comment on above: Performed By: #### Melia NICOLE CMP, 89714-6 #### [facility] ([id number]) [address] [place] [address] 83306 Lymphocytes/100 WBC (Bld) 17.8 % Normal [facility] Comment on above: Performed By: #### Melia NICOLE CMP, 67732-4 #### [facility] ([id number]) [address] [place] [address] 41557 MCH (RBC) [Entitic mass] 28.4 pg Normal 27-34 [facility] Comment on above: Performed By: #### Melia NICOLE CMP, 24621-8 #### [facility] ([id number]) [address] [place] [address] 22758 MCHC (RBC) [Mass/Vol] 33.5 g/dL Normal 32-36 [facility] Comment on above: Performed By: #### Melia NICOLE CMP, 55694-4 #### [facility] ([id number]) [address] [place] [address] 73428 MCV (RBC) [Entitic vol] 85 fL Normal 80-100 [facility] Comment on above: Performed By: #### Melia NICOLE, CMP, 16244-2 #### [facility] ([id number]) [address] [place] [address] 17910 Monocytes (Bld) [#/Vol] 0.8 10*3/uL Normal 0-0.9 [facility] Comment on above: Performed By: #### Melia NICOLE, CMP, 57543-0 #### [facility] ([id number]) [address] [place] [address] 10014 Monocytes/100 WBC (Bld) 7.1 % Normal [facility] Comment on above: Performed By: #### Melia NICOLE CMP, 66394-3 #### [facility] ([id number]) [address] [place] [address] 01236 Neutrophils/100 WBC (Bld) 73.2 % Normal [facility] Comment on above: Performed By: #### Melia NICOLE, CMP, 96742-1 #### [facility] ([id number]) [address] [place] [address] 47731 Platelet mean volume (Bld) [Entitic vol] 7.5 fL Normal 7-12 [facility] Comment on above: Performed By: #### Melia NICOLE CMP, 58161-8 #### [facility] ([id number]) [address] [place] [address] 97751 Platelets (Bld) [#/Vol] 300 10*3/uL Normal 150-450 [facility] Comment on above: Performed By: #### Melia NICOLE, CMP, 36772-0 #### [facility] ([id number]) [address] [place] [address] 67121 RBC COUNT 3.83 X10E12/L Normal 3.80-5.20 [facility] Comment on above: Performed By: #### Melia NICOLE, CMP, 71873-9 #### [facility] ([id number]) [address] [place] [address] 31265 WBC (Bld) [#/Vol] 11.1 10*3/uL High 4.0-11.0 [facility] Comment on above: Performed By: #### C BCA, CMP, 93117-8 #### [facility] ([id number]) [address] [place] [address] 55517 COMPREHENSIVE METABOLIC PANE Yassine 01-20-2024 Albumin [Mass/Vol] 3.2 g/dL Normal 3.2-5.3 [facility] Comment on above: Performed By: #### C BCA, CMP, 59011-1 #### [facility] ([id number]) [address] [place] [address] 65834 ALP [Catalytic activity/Vol] 49 U/L Normal 39-130 [facility] Comment on above: Performed By: #### C BCA, CMP, 00258-3 #### [facility] ([id number]) [address] [place] [address] 26690 ALT [Catalytic activity/Vol] 16 U/L Normal 0-31 [facility] Comment on above: Performed By: #### C BCA, CMP, 30479-0 #### [facility] ([id number]) [address] [place] [address] 08009 Anion gap [Moles/Vol] 7 mmol/L Normal 5-15 [facility] Comment on above: Performed By: #### C BCA, CMP, 35362-8 #### [facility] ([id number]) [address] [place] [address] 58000 AST [Catalytic activity/Vol] 20 U/L Normal 0-41 [facility] Comment on above: Performed By: #### C BCA, CMP, 84907-5 #### [facility] ([id number]) [address] [place] [address] 43020 Bilirubin [Mass/Vol] 0.3 mg/dL Normal 0.3-1.2 [facility] Comment on above: Performed By: #### C MELYSSA NICOLE, 63945-1 #### [facility] ([id number]) [address] [place] [address] 02726 Calcium [Mass/Vol] 8.6 mg/dL Normal 8.5-10.5 [facility] Comment on above: Performed By: #### C MELYSSA NICOLE, 41170-9 #### [facility] ([id number]) [address] [place] [address] 13776 Chloride [Moles/Vol] 99 mmol/L Normal 98-109 [facility] Comment on above: Performed By: #### Melia NICOLE CMP, 53767-1 #### [facility] ([id number]) [address] [place] [address] 76448 CO2 [Moles/Vol] 22 mmol/L Normal 22-32 [facility] Comment on above: Performed By: #### C MELYSSA NICOLE, 66182-7 #### [facility] ([id number]) [address] [place] [address] 99917 Creatinine [Mass/Vol] 0.56 mg/dL Normal 0.40-1.00 [facility] Comment on above: Result Comment: METH OD TRACEABLE TO IDMS STANDARD Performed By: #### C MELYSSA NICOLE, 79558-9 #### [facility] ([id number]) [address] [place] [address] 14599 eGFR (CKD-EPI) NON-RACE DEPENDENT >90 Normal >59 [facility] Comment on above: Result Comment: Reported eGFR is based on the CKD-EPI 2020 equation that does not use a race coefficient. Performed By: #### C MELYSSA NICOLE, 65696-1 #### [facility] ([id number]) [address] [place] [address] 30563 Glucose [Mass/Vol] 102 mg/dL High 65-99 [facility] Comment on above: Performed By: #### Melia NICOLE [facility], 20870-2 #### [facility] ([id number]) [address] [place] [address] 05720 Potassium [Moles/Vol] 3.7 mmol/L Normal 3.5-5.0 [facility] Comment on above: Performed By: #### Melia NICOLE [facility], 50729-3 #### [facility] ([id number]) [address] [place] [address] 44969 Protein [Mass/Vol] 7.2 g/dL Normal 6.0-8.0 [facility] Comment on above: Performed By: #### Melia NICOLE [facility], 02782-5 #### [facility] ([id number]) [address] [place] [address] 51407 Sodium [Moles/Vol] 128 mmol/L Low 134-146 [facility] Comment on above: Performed By: #### Melia NICOLE [facility], 12220-1 #### [facility] ([id number]) [address] [place] [address] 33974 Urea nitrogen [Mass/Vol] 9 mg/dL Normal 5-23 [facility] Comment on above: Performed By: #### Melia NICOLE [facility], 56006-9 #### [facility] ([id number]) [address] [place] [address] BRAIN WO CONTon CT BRAIN WO CONT CT BRAIN WO CONT CT BRAIN WO CONT INDICATION: Fall with head injury. TECHNIQUE: CT of the head without intravenous contrast. Reviewed in brain, bone, and soft tissue windows. COMPARISON: 12/27/2016. FINDINGS: No intracranial hemorrhage. No territorial loss of celeste-white differentiation. The ventricular system is normal in size and morphology. No extra-axial fluid collections or shift of midline structures. Patent basal cisterns. No depressed or displaced calvarial fracture. IMPRESSION: 1. No acute intracranial abnormality. 2. MRI would better assess for occult abnormalities such as acute ischemia. All CT scans at this facility use dose modulation, iterative reconstruction, and/or weight based dosing when appropriate to reduce radiation dose to as low as reasonably achievable. Finalized by Elmer Mckinley MD on 01/20/2024 2:56 PM Normal [facility] CT CERVICAL SPINE WO CONTon 01-20-2024 CT CERVICAL SPINE WO CONT CT CERVICAL SPINE WO CONT CLINICAL INFORMATION: Neck trauma, impaired ROM (Age 16-64y); syncope, head injury, TECHNIQUE: CT CERVICAL SPINE WO CONT CT images of the cervical spine were obtained. There is no cervical malalignment or compression. Facets aligned. Disc spaces are preserved. There is no acute cervical spine fracture identified. Lung apices appear clear. IMPRESSION: No acute findings. All CT scans at this facility use dose modulation, iterative reconstruction, and/or weight based dosing when appropriate to reduce radiation dose to as low as reasonably achievable. Finalized by Norbert Corrales MD on 01/20/2024 2:52 PM Normal [facility] Troponin I.cardiac High sens itivity method [Mass/Vol]on 01-20-2024 1 HOUR TROP I, HIGH SENSITIVITY <2 Normal <16 [facility] Comment on above: Performed By: #### 8 9579-7 #### [facility] ([id number]) [address] [place] [address] 09255 TROPONIN I, HIGH SENSITIVITY <2 Normal <16 [facility] Comment on above: Performed By: #### C BCA, [facility], 76448-8 #### [facility] ([id number]) [address] [place] [address] 98004 CANNABINOID (THC) CONFIRMATI ON, URINEon 12-15-2022 Cannabinoid Positive Abnormal [facility] Comment on above: Performed By: #### C BC #### [facility] [address] [address] [address] Isi Forbes Carboxy THC GC/MS Conf >750 Normal Cutoff=10 [facility] Comment on above: Performed By: #### C BC #### [facility] [address] [place] [address] Dr. Isi Forbes CBC AUTO DIFFon 12-10-2022 BASO # 0.0 103/ul Normal 0.0-0.1 [facility] Comment on above: Performed By: #### G TT3P #### [facility] [address] [place] [address] Dr. Isi Forbes Basophils/100 WBC (Bld) 0.3 % Normal 0.2-2.0 [facility] Comment on above: Performed By: #### G TT3P #### [facility] [address] [place] [address] Dr. Isi Forbes EO # 0.1 103/ul Normal 0.0-0.7 [facility] Comment on above: Performed By: #### G TT3P #### [facility] [address] [place] [address] Dr. Isi Forbes Eosinophils/100 WBC (Bld) 0.5 % Critically low 0.9-7.0 [facility] Comment on above: Performed By: #### G TT3P #### [facility] [address] [place] [address] Dr. Isi Forbse Erythrocyte distribution width (RBC) [Ratio] 13.8 % Normal 11.0-15.0 [facility] Comment on above: Performed By: #### G TT3P #### [facility] [address] [place] [address] Dr. Iis Forbes Hematocrit (Bld) [Volume fraction] 24.1 % Critically low 36.0-48.0 [facility] Comment on above: Performed By: #### G TT3P #### [facility] [address] [place] [address] Dr. Isi Forbes Hemoglobin (Bld) [Mass/Vol] 7.7 g/dL Critically low 12.0-16.0 [facility] Comment on above: Performed By: #### G TT3P #### [facility] [address] [place] [address] Dr. Isi Forbes IG # 0.11 10e3/ul Critically high 0.00-0.03 [facility] Comment on above: Performed By: #### G TT3P #### [facility] [address] [place] [address] Dr. Isi Forbes IG % 0.9 % Critically high 0.0-0.5 [facility] Comment on above: Performed By: #### G TT3P #### [facility] [address] [place] [address] Dr. Isi Forbes LYMPH # 2.0 103/ul Normal 1.2-3.8 [facility] Comment on above: Performed By: #### G TT3P #### [facility] [address] [place] [address] Dr. Isi Forbes Lymphocytes/100 WBC (Bld) 16.9 % Critically low 20.5-60.0 [facility] Comment on above: Performed By: #### G TT3P #### [facility] [address] [place] [address] Dr. Isi Forbes MANUAL DIFF REQ NO Normal [facility] Comment on above: Performed By: #### G TT3P #### [facility] [address] [place] [address] Dr. Isi Forbes MCH (RBC) [Entitic mass] 27.4 pg Normal 26.7-34.0 [facility] Comment on above: Performed By: #### G TT3P #### [facility] [address] [place] [address] Dr. Isi Forbes MCHC (RBC) [Mass/Vol] 32.0 g/dL Normal 29.9-35.2 [facility] Comment on above: Performed By: #### G TT3P #### [facility] [address] [place] [address] Dr. Isi Forbes MCV (RBC) [Entitic vol] 85.8 fL Normal 81.0-99.0 [facility] Comment on above: Performed By: #### G TT3P #### [facility] [address] [place] [address] Dr. Isi Forbes MONO # 1.5 103/ul Critically high 0.3-0.8 [facility] Comment on above: Performed By: #### G TT3P #### [facility] [address] [address] [address] Isi Forbes Monocytes/100 WBC (Bld) 12.2 % Critically high 1.7-12.0 [facility] Comment on above: Performed By: #### G TT3P #### [facility] [address] [address] [address] Isi Forbes NEUT # 8.3 103/ul Critically high 1.4-6.5 [facility] Comment on above: Performed By: #### G TT3P #### [facility] [address] [place] [address] Dr. Isi Forbes Neutrophils/100 WBC (Bld) 69.2 % Normal 43.0-75.0 [facility] Comment on above: Performed By: #### G TT3P #### [facility] [address] [address] [address] Isi Forbes Platelet mean volume (Bld) [Entitic vol] 9.6 fL Normal 9.5-13.5 [facility] Comment on above: Performed By: #### G TT3P #### [facility] [address] [place] [address] Dr. Isi Forbes PLT 205 103/ul Normal 150-450 [facility] Comment on above: Performed By: #### G TT3P #### [facility] [address] [place] [address] Dr. Isi Forbes RBC 2.81 106/ul Critically low 4.20-5.40 [facility] Comment on above: Performed By: #### G TT3P #### [facility] [address] [address] [address] Isi Forbes WBC 12.0 103/ul Critically high 4.0-11.0 [facility] Comment on above: Performed By: #### G TT3P #### [facility] [address] [address] [address] Isi Forbes CBC AUTO DIFFon 12-09-2022 BASO # 0.1 103/ul Normal 0.0-0.1 [facility] Comment on above: Performed By: #### G TT3P #### [facility] [address] [place] [address] Dr. Isi Forbes Basophils/100 WBC (Bld) 0.5 % Normal 0.2-2.0 [facility] Comment on above: Performed By: #### G TT3P #### [facility] [address] [place] [address] Dr. Isi Forbes EO # 0.1 103/ul Normal 0.0-0.7 [facility] Comment on above: Performed By: #### G TT3P #### [facility] [address] [place] [address] Dr. Isi Forbes Eosinophils/100 WBC (Bld) 0.4 % Critically low 0.9-7.0 [facility] Comment on above: Performed By: #### G TT3P #### [facility] [address] [place] [address] Dr. Isi Forbes Erythrocyte distribution width (RBC) [Ratio] 13.7 % Normal 11.0-15.0 [facility] Comment on above: Performed By: #### G TT3P #### [facility] [address] [place] [address] Dr. Isi Forbes Hematocrit (Bld) [Volume fraction] 31.9 % Critically low 36.0-48.0 [facility] Comment on above: Performed By: #### G TT3P #### [facility] [address] [place] [address] Dr. Isi Forbes Hemoglobin (Bld) [Mass/Vol] 10.5 g/dL Critically low 12.0-16.0 [facility] Comment on above: Performed By: #### G TT3P #### [facility] [address] [place] [address] Dr. Isi Forbes IG # 0.13 10e3/ul Critically high 0.00-0.03 [facility] Comment on above: Performed By: #### G TT3P #### [facility] [address] [address] [address] Isi Forbes IG % 1.2 % Critically high 0.0-0.5 [facility] Comment on above: Performed By: #### G TT3P #### [facility] [address] [address] [address] Iis Forbes LYMPH # 2.0 103/ul Normal 1.2-3.8 [facility] Comment on above: Performed By: #### G TT3P #### [facility] [address] [address] [address] Isi Frobes Lymphocytes/100 WBC (Bld) 18.0 % Critically low 20.5-60.0 [facility] Comment on above: Performed By: #### G TT3P #### [facility] [address] [place] [address] Dr. Isi Forbes MANUAL DIFF REQ NO Normal [facility] Comment on above: Performed By: #### G TT3P #### [facility] [address] [place] [address] Dr. Isi Forbes MCH (RBC) [Entitic mass] 27.6 pg Normal 26.7-34.0 [facility] Comment on above: Performed By: #### G TT3P #### [facility] [address] [place] [address] Dr. Isi Forbes MCHC (RBC) [Mass/Vol] 32.9 g/dL Normal 29.9-35.2 [facility] Comment on above: Performed By: #### G TT3P #### [facility] [address] [place] [address] Dr. Isi Forbes MCV (RBC) [Entitic vol] 83.9 fL Normal 81.0-99.0 [facility] Comment on above: Performed By: #### G TT3P #### [facility] [address] [place] [address] Dr. Isi Forbes MONO # 1.0 103/ul Critically high 0.3-0.8 [facility] Comment on above: Performed By: #### G TT3P #### [facility] [address] [address] [address] Isi Forbes Monocytes/100 WBC (Bld) 8.9 % Normal 1.7-12.0 [facility] Comment on above: Performed By: #### G TT3P #### [facility] [facility] [address] [address] [address] Isi Forbes NEUT # 7.9 103/ul Critically high 1.4-6.5 [facility] Comment on above: Performed By: #### G TT3P #### [facility] [address] [address] [address] Isi Forbes Neutrophils/100 WBC (Bld) 71.0 % Normal 43.0-75.0 [facility] Comment on above: Performed By: #### G TT3P #### [facility] [address] [place] [address] Dr. Isi Forbes Platelet mean volume (Bld) [Entitic vol] 10.0 fL Normal 9.5-13.5 [facility] Comment on above: Performed By: #### G TT3P #### [facility] [address] [address] [address] Isi Forbes PLT 264 103/ul Normal 150-450 [facility] Comment on above: Performed By: #### G TT3P #### [facility] [address] [place] [address] Dr. Isi Forbes RBC 3.80 106/ul Critically low 4.20-5.40 [facility] Comment on above: Performed By: #### G TT3P #### [facility] [address] [place] [address] Dr. Isi Forbes WBC 11.1 103/ul Critically high 4.0-11.0 [facility] Comment on above: Performed By: #### G TT3P #### [facility] [address] [place] [address] Dr. Isi Forbes DRUG SCREEN RAPID (URINE)on 12-09-2022 AMP Negative Normal NEGATIVE [facility] Comment on above: Performed By: #### G TT3P #### [facility] [address] [place] [address] Dr. Isi Forbes BAR Negative Normal NEGATIVE [facility] Comment on above: Performed By: #### G TT3P #### [facility] [address] [place] [address] Dr. Isi Forbes BUP Negative Normal NEGATIVE [facility] Comment on above: Performed By: #### G TT3P #### [facility] [address] [place] [address] Dr. Isi Forbes BZO Negative Normal NEGATIVE [facility] Comment on above: Performed By: #### G TT3P #### [facility] [address] [place] [address] Dr. Isi Forbes BEATA Negative Normal NEGATIVE [facility] Comment on above: Performed By: #### G TT3P #### [facility] [address] [place] [address] Dr. Isi Forbes CUT-OFFS SEE BELOW Normal [facility] Comment on above: Result Comment: [...] ng/mL Performed By: #### G TT3P #### [facility] [address] [place] [address] Dr. Isi Forbes DRUG CUT HEADER DRUG CLASS TEST SYSTEM CUT-OFF CONCENTRATIONS ARE FOLLOWS: Normal [facility] Comment on above: Performed By: #### G TT3P #### [facility] [address] [place] [address] Dr. Isi Forbes mAMP Negative Normal NEGATIVE [facility] Comment on above: Performed By: #### G TT3P #### [facility] [address] [place] [address] Dr. Isi Forbes MTD Negative Normal NEGATIVE [facility] Comment on above: Performed By: #### G TT3P #### [facility] [address] [place] [address] Dr. Isi Forbes OPI Negative Normal NEGATIVE [facility] Comment on above: Performed By: #### G TT3P #### [facility] [address] [place] [address] Dr. Isi Forbes OXY Negative Normal NEGATIVE [facility] Comment on above: Performed By: #### G TT3P #### [facility] [address] [place] [address] Dr. Isi Forbes PCP Negative Normal NEGATIVE [facility] Comment on above: Performed By: #### G TT3P #### [facility] [address] [place] [address] Dr. Isi Forbes PPX Negative Normal NEGATIVE [facility] Comment on above: Performed By: #### G TT3P #### [facility] [address] [place] [address] Dr. Isi Forbes TCA Negative Normal NEGATIVE [facility] Comment on above: Performed By: #### G TT3P #### [facility] [address] [place] [address] Dr. Isi Forbes THC Positive Abnormal NEGATIVE [facility] Comment on above: Performed By: #### G TT3P #### [facility] [address] [place] [address] Dr. Isi Forbes TYPE AND SCREENon 12-09-2022 TYPE AND SCREEN Negative Normal [facility] Comment on above: Performed By: #### R PRQ #### [facility] [address] [place] [address] Dr. Isi Forbes UA (CLEAN/CATCH) DIE DEVELOPER/MICRO I F IND.on 12-09-2022 Bilirubin Ql (U) Negative Normal NEGATIVE [facility] Comment on above: Performed By: #### C BC #### [facility] [address] [place] [address] Dr. Isi Forbes Clarity (U) CLEAR Normal CLEAR [facility] Comment on above: Performed By: #### C BC #### [facility] [address] [address] [address] Isi Forbes Color (U) YELLOW Normal YELLOW [facility] Comment on above: Performed By: #### C BC #### [facility] [address] [place] [address] Dr. Isi Forbes Glucose Ql (U) Negative Normal NEGATIVE [facility] Comment on above: Performed By: #### C BC #### [facility] [address] [place] [address] Dr. Isi Forbes Hemoglobin Ql (U) Negative Normal NEGATIVE [facility] Comment on above: Performed By: #### C BC #### [facility] [address] [place] [address] Dr. Isi Forbes Ketones Ql (U) TRACE Abnormal NEGATIVE [facility] Comment on above: Performed By: #### C BC #### [facility] [address] [place] [address] Dr. Isi Forbes LEUKOCYTES Negative Normal NEGATIVE [facility] Comment on above: Performed By: #### C BC #### [facility] [address] [place] [address] Dr. Isi Forbes Nitrite Ql (U) Negative Normal NEGATIVE [facility] Comment on above: Performed By: #### C BC #### [facility] [address] [place] [address] Dr. Isi Forbes pH (U) 6.5 [pH] Normal 5-9 [facility] Comment on above: Performed By: #### C BC #### [facility] [address] [place] [address] Dr. Isi Forbes SPEC GRAVITY 1.025 Normal 1.005-<=1.025 [facility] Comment on above: Performed By: #### C BC #### [facility] [address] [place] [address] Dr. Isi Forbes UA PROTEIN TRACE Normal NEGATIVE/ TRACE [facility] Comment on above: Performed By: #### C BC #### [facility] [address] [place] [address] Dr. Isi Forbes UR MICRO IND NOT INDICATED Normal [facility] Comment on above: Performed By: #### C BC #### [facility] [address] [place] [address] Dr. Isi Forbes Urobilinogen Qn (U) 0.2 {Barb'U}/dL Normal 0.2 - 1. 0 [facility] Comment on above: Performed By: #### C BC #### [facility] [address] [place] [address] Dr. Isi Forbes GROUP B STREP CULTUREon 11-15 S. agalactiae Ag Ql (Unsp spec) Culture Observations: NEGATIVE FOR GROUP B STREPTOCOCCUS. Normal [facility] Comment on above: Performed By: #### R PRQ #### [facility] [address] [place] [address] Dr. Isi Forbes US PREG BIOPHY W [...] FREDY DICK Date: 2022-10-31 22:08 Normal [facility] US PREG GROWTHon 11-01-2022 US PREG GROWTH [...] FREDY DICK Date: 2022-10-31 22:07 Normal [facility] CBC AUTO DIFFon 10-28-2022 BASO # 0.0 103/ul Normal 0.0-0.1 [facility] Comment on above: Performed By: #### G TT3P #### [facility] [address] [place] [address] Dr. Isi Forbes Basophils/100 WBC (Bld) 0.1 % Critically low 0.2-2.0 [facility] Comment on above: Performed By: #### G TT3P #### [facility] [address] [place] [address] Dr. Isi Forbes EO # 0.0 103/ul Normal 0.0-0.7 [facility] Comment on above: Performed By: #### G TT3P #### [facility] [address] [place] [address] Dr. Isi Forbes Eosinophils/100 WBC (Bld) 0.1 % Critically low 0.9-7.0 [facility] Comment on above: Performed By: #### G TT3P #### [facility] [address] [place] [address] Dr. Isi Forbes Erythrocyte distribution width (RBC) [Ratio] 12.7 % Normal 11.0-15.0 [facility] Comment on above: Performed By: #### G TT3P #### [facility] [address] [place] [address] Dr. Isi Forbes Hematocrit (Bld) [Volume fraction] 29.1 % Critically low 36.0-48.0 [facility] Comment on above: Performed By: #### G TT3P #### [facility] [address] [place] [address] Dr. Isi Forbes Hemoglobin (Bld) [Mass/Vol] 9.4 g/dL Critically low 12.0-16.0 [facility] Comment on above: Performed By: #### G TT3P #### [facility] [address] [place] [address] Dr. Isi Forbes IG # 0.20 10e3/ul Critically high 0.00-0.03 [facility] Comment on above: Performed By: #### G TT3P #### [facility] [address] [address] [address] Isi Forbes IG % 1.4 % Critically high 0.0-0.5 [facility] Comment on above: Performed By: #### G TT3P #### [facility] [address] [place] [address] Dr. Isi Forbes LYMPH # 1.9 103/ul Normal 1.2-3.8 [facility] Comment on above: Performed By: #### G TT3P #### [facility] [address] [place] [address] Dr. Isi Forbes Lymphocytes/100 WBC (Bld) 13.5 % Critically low 20.5-60.0 [facility] Comment on above: Performed By: #### G TT3P #### [facility] [address] [place] [address] Dr. Isi Forbes MANUAL DIFF REQ NO Normal [facility] Comment on above: Performed By: #### G TT3P #### [facility] [address] [place] [address] Dr. Isi Forbes MCH (RBC) [Entitic mass] 28.2 pg Normal 26.7-34.0 [facility] Comment on above: Performed By: #### G TT3P #### [facility] [address] [place] [address] Dr. Isi Forbes MCHC (RBC) [Mass/Vol] 32.3 g/dL Normal 29.9-35.2 [facility] Comment on above: Performed By: #### G TT3P #### [facility] [address] [place] [address] Dr. Isi Forbes MCV (RBC) [Entitic vol] 87.4 fL Normal 81.0-99.0 [facility] Comment on above: Performed By: #### G TT3P #### [facility] [address] [place] [address] Dr. Isi Forbes MONO # 0.8 103/ul Normal 0.3-0.8 [facility] Comment on above: Performed By: #### G TT3P #### [facility] [address] [place] [address] Dr. Isi Forbes Monocytes/100 WBC (Bld) 5.9 % Normal 1.7-12.0 [facility] Comment on above: Performed By: #### G TT3P #### [facility] [address] [place] [address] Dr. Isi Forbes NEUT # 10.9 103/ul Critically high 1.4-6.5 [facility] Comment on above: Performed By: #### G TT3P #### [facility] [address] [place] [address] Dr. Isi Forbes Neutrophils/100 WBC (Bld) 79.0 % Critically high 43.0-75.0 [facility] Comment on above: Performed By: #### G TT3P #### [facility] [address] [place] [address] Dr. Isi Forbes Platelet mean volume (Bld) [Entitic vol] 9.3 fL Critically low 9.5-13.5 [facility] Comment on above: Performed By: #### G TT3P #### [facility] [address] [place] [address] Dr. Isi Forbes PLT 265 103/ul Normal 150-450 [facility] Comment on above: Performed By: #### G TT3P #### [facility] [address] [place] [address] Dr. Isi Forbes RBC 3.33 106/ul Critically low 4.20-5.40 [facility] Comment on above: Performed By: #### G TT3P #### [facility] [address] [place] [address] Dr. Isi Forbes WBC 13.8 103/ul Critically high 4.0-11.0 [facility] Comment on above: Performed By: #### G TT3P #### [facility] [address] [place] [address] Dr. Isi Forbes CBC AUTO DIFFon 10-27-2022 BASO # 0.0 103/ul Normal 0.0-0.1 [facility] Comment on above: Performed By: #### C BC #### [facility] [address] [place] [address] Dr. Isi Forbes Basophils/100 WBC (Bld) 0.2 % Normal 0.2-2.0 [facility] Comment on above: Performed By: #### C BC #### [facility] [address] [place] [address] Dr. Isi Forbes EO # 0.0 103/ul Normal 0.0-0.7 [facility] Comment on above: Performed By: #### C BC #### [facility] [address] [place] [address] Dr. Isi Forbes Eosinophils/100 WBC (Bld) 0.1 % Critically low 0.9-7.0 [facility] Comment on above: Performed By: #### C BC #### [facility] [address] [place] [address] Dr. Isi Forbes Erythrocyte distribution width (RBC) [Ratio] 12.7 % Normal 11.0-15.0 [facility] Comment on above: Performed By: #### C BC #### [facility] [address] [place] [address] Dr. Isi Forbes Hematocrit (Bld) [Volume fraction] 30.4 % Critically low 36.0-48.0 [facility] Comment on above: Performed By: #### C BC #### [facility] [address] [place] [address] Dr. Isi Forbes Hemoglobin (Bld) [Mass/Vol] 10.4 g/dL Critically low 12.0-16.0 [facility] Comment on above: Performed By: #### C BC #### [facility] [address] [place] [address] Dr. Isi Forbes IG # 0.19 10e3/ul Critically high 0.00-0.03 [facility] Comment on above: Performed By: #### C BC #### [facility] [address] [place] [address] Dr. Isi Forbes IG % 1.2 % Critically high 0.0-0.5 [facility] Comment on above: Performed By: #### C BC #### [facility] [address] [place] [address] Dr. Isi Forbes LYMPH # 1.1 103/ul Critically low 1.2-3.8 [facility] Comment on above: Performed By: #### C BC #### [facility] [address] [place] [address] Dr. Isi Forbes Lymphocytes/100 WBC (Bld) 6.7 % Critically low 20.5-60.0 [facility] Comment on above: Performed By: #### C BC #### [facility] [address] [place] [address] Dr. Isi Forbes MANUAL DIFF REQ NO Normal [facility] Comment on above: Performed By: #### C BC #### [facility] [address] [place] [address] Dr. Isi Forbes MCH (RBC) [Entitic mass] 29.5 pg Normal 26.7-34.0 [facility] Comment on above: Performed By: #### C BC #### [facility] [address] [place] [address] Dr. Isi Forbes MCHC (RBC) [Mass/Vol] 34.2 g/dL Normal 29.9-35.2 [facility] Comment on above: Performed By: #### C BC #### [facility] [address] [place] [address] Dr. Isi Forbes MCV (RBC) [Entitic vol] 86.1 fL Normal 81.0-99.0 [facility] Comment on above: Performed By: #### C BC #### [facility] [address] [place] [address] Dr. Isi Forbes MONO # 0.3 103/ul Normal 0.3-0.8 [facility] Comment on above: Performed By: #### C BC #### [facility] [address] [place] [address] Dr. Isi Forbes Monocytes/100 WBC (Bld) 1.7 % Normal 1.7-12.0 [facility] Comment on above: Performed By: #### C BC #### [facility] [address] [place] [address] Dr. Isi Forbes NEUT # 14.1 103/ul Critically high 1.4-6.5 [facility] Comment on above: Performed By: #### C BC #### [facility] [address] [place] [address] Dr. Isi Forbes Neutrophils/100 WBC (Bld) 90.1 % Critically high 43.0-75.0 [facility] Comment on above: Performed By: #### C BC #### [facility] [address] [place] [address] Dr. Isi Forbes Platelet mean volume (Bld) [Entitic vol] 8.9 fL Critically low 9.5-13.5 [facility] Comment on above: Performed By: #### C BC #### [facility] [address] [place] [address] Dr. Isi Forbes PLT 276 103/ul Normal 150-450 [facility] Comment on above: Performed By: #### C BC #### [facility] [address] [place] [address] Dr. Isi Forbes RBC 3.53 106/ul Critically low 4.20-5.40 [facility] Comment on above: Performed By: #### C BC #### [facility] [address] [place] [address] Dr. Isi Forbes WBC 15.6 103/ul Critically high 4.0-11.0 [facility] Comment on above: Performed By: #### C BC #### [facility] [address] [place] [address] Dr. Isi Forbes UA (CLEAN/CATCH) DIE DEVELOPER/MICRO I F IND.on 10-27-2022 Bilirubin Ql (U) Negative Normal NEGATIVE [facility] Comment on above: Performed By: #### C BC #### [facility] [address] [place] [address] Dr. Isi Forbes Clarity (U) CLEAR Normal CLEAR [facility] Comment on above: Performed By: #### C BC #### [facility] [address] [place] [address] Dr. Isi Forbes Color (U) LT. YELLOW Normal YELLOW [facility] Comment on above: Performed By: #### C BC #### [facility] [address] [place] [address] Dr. Isi Forbes Glucose Ql (U) Negative Normal NEGATIVE [facility] Comment on above: Performed By: #### C BC #### [facility] [address] [place] [address] Dr. Isi Forbes Hemoglobin Ql (U) Negative Normal NEGATIVE [facility] Comment on above: Performed By: #### C BC #### [facility] [address] [place] [address] Dr. Isi Forbes Ketones Ql (U) Negative Normal NEGATIVE [facility] Comment on above: Performed By: #### C BC #### [facility] [address] [place] [address] Dr. Isi Forbes LEUKOCYTES Negative Normal NEGATIVE [facility] Comment on above: Performed By: #### C BC #### [facility] [address] [place] [address] Dr. Isi Forbes Nitrite Ql (U) Negative Normal NEGATIVE [facility] Comment on above: Performed By: #### C BC #### [facility] [address] [place] [address] Dr. Isi Forbes pH (U) 6.0 [pH] Normal 5-9 [facility] Comment on above: Performed By: #### C BC #### [facility] [address] [place] [address] Dr. Isi Forbes SPEC GRAVITY 1.010 Normal 1.005-<=1.025 [facility] Comment on above: Performed By: #### C BC #### [facility] [address] [address] [address] Isi Forbes UA PROTEIN Negative Normal NEGATIVE/ TRACE [facility] Comment on above: Performed By: #### C BC #### [facility] [address] [address] [address] Isi Forbes UR MICRO IND NOT INDICATED Normal [facility] Comment on above: Performed By: #### C BC #### [facility] [address] [address] [address] Isi Forbes Urobilinogen Qn (U) 0.2 {Barb'U}/dL Normal 0.2 - 1. 0 [facility] Comment on above: Performed By: #### C BC #### [facility] [address] [address] [address] Isi Forbes US PREG CERVICAL LENGTHon [...] FREDY DICK Date: 2022-10-27 16:05 Normal [facility] GTT 3 HR PREGon 10-26-2022 Glucose [Mass/Vol] 99 mg/dL Normal 74-106 [facility] Comment on above: Performed By: #### G TT3P #### [facility] [address] [address] [address] Isi Forbes Glucose [Mass/Vol] 172 mg/dL Normal [facility] Comment on above: Performed By: #### G TT3P #### [facility] [address] [address] [address] Isi Forbes Glucose [Mass/Vol] 147 mg/dL Normal [facility] Comment on above: Performed By: #### G TT3P #### [facility] [address] [address] [address] Iis Forbes Glucose [Mass/Vol] 125 mg/dL Normal [facility] Comment on above: Performed By: #### G TT3P #### [facility] [address] [address] [address] Isi Forbes GLYCOHEMOGLOBIN A1Con 2022 ADA RECOMMENDATION SEE BELOW Normal [facility] Comment on above: Result Comment: ADA RECOMMENDED LIMIT 4.0 - 6.0 ADA THERAPEUTIC TARGET < 7.0 ACTION SUGGESTED > 7.0 Performed By: #### A 1C #### [facility] [address] [place] [address] Dr. Isi Forbes Glucose [Mass/Vol] 114 mg/dL Normal [facility] Comment on above: Performed By: #### A 1C #### [facility] [address] [place] [address] Dr. Isi Forbes HbA1c (Bld) [Mass fraction] 5.6 % Normal 4.5-6.2 [facility] Comment on above: Performed By: #### A 1C #### [facility] [address] [place] [address] Dr. Isi Forbes UA RANDOMon 10-25-2022 Bilirubin Ql (U) Negative Normal NEGATIVE [facility] Comment on above: Performed By: #### R PRQ #### [facility] [address] [place] [address] Dr. Isi Forbes Clarity (U) CLEAR Normal CLEAR [facility] Comment on above: Performed By: #### R PRQ #### [facility] [address] [place] [address] Dr. Isi Forbes Color (U) LT. YELLOW Normal YELLOW [facility] Comment on above: Performed By: #### R PRQ #### [facility] [address] [place] [address] Dr. Isi Forbes Glucose Ql (U) Negative Normal NEGATIVE [facility] Comment on above: Performed By: #### R PRQ #### [facility] [address] [place] [address] Dr. Isi Forbes Hemoglobin Ql (U) Negative Normal NEGATIVE [facility] Comment on above: Performed By: #### R PRQ #### [facility] [address] [place] [address] Dr. Isi Forbes Ketones Ql (U) Negative Normal NEGATIVE [facility] Comment on above: Performed By: #### R PRQ #### [facility] [address] [place] [address] Dr. Isi Forbes LEUKOCYTES Negative Normal NEGATIVE [facility] Comment on above: Performed By: #### R PRQ #### [facility] [address] [address] [address] Isi Forbes Nitrite Ql (U) Negative Normal NEGATIVE [facility] Comment on above: Performed By: #### R PRQ #### [facility] [address] [place] [address] Dr. Isi Forbes pH (U) 7.5 [pH] Normal 5-9 [facility] Comment on above: Performed By: #### R PRQ #### [facility] [address] [place] [address] Dr. Isi Forbes SPEC GRAVITY 1.020 Normal 1.005-<=1.025 [facility] Comment on above: Performed By: #### R PRQ #### [facility] [address] [place] [address] Dr. Isi Forbes UA PROTEIN Negative Normal NEGATIVE/ TRACE [facility] Comment on above: Performed By: #### R PRQ #### [facility] [address] [place] [address] Dr. Isi Forbes Urobilinogen Qn (U) 0.2 {Barb'U}/dL Normal 0.2 - 1. 0 [facility] Comment on above: Performed By: #### R PRQ #### [facility] [address] [place] [address] Dr. Iis Forbes GLUCOSE - 1HRon 09-27-2022 Glucose [Mass/Vol] 166 mg/dL Critically high 74-106 T [facility] Comment on above: Performed By: #### C BC #### [facility] [address] [place] [address] Dr. Isi Forbes HEMOGRAM AND PLATELon 2022 Hematocrit (Bld) [Volume fraction] 30.9 % Critically low 36.0-48.0 [facility] Comment on above: Performed By: #### C BC #### [facility] [address] [place] [address] Dr. Isi Forbes Hemoglobin (Bld) [Mass/Vol] 10.4 g/dL Critically low 12.0-16.0 [facility] Comment on above: Performed By: #### C BC #### [facility] [address] [place] [address] Dr. Isi Forbes MCH (RBC) [Entitic mass] 29.9 pg Normal 26.7-34.0 [facility] Comment on above: Performed By: #### C BC #### [facility] [address] [place] [address] Dr. Isi Forbes MCHC (RBC) [Mass/Vol] 33.7 g/dL Normal 29.9-35.2 [facility] Comment on above: Performed By: #### C BC #### [facility] [address] [place] [address] Dr. Isi Forbes MCV (RBC) [Entitic vol] 88.8 fL Normal 81.0-99.0 [facility] Comment on above: Performed By: #### C BC #### [facility] [address] [place] [address] Dr. Isi Forbes PLT 300 103/ul Normal 150-450 [facility] Comment on above: Performed By: #### C BC #### [facility] [address] [place] [address] Dr. Isi Forbes RBC 3.48 106/ul Critically low 4.20-5.40 [facility] Comment on above: Performed By: #### C BC #### [facility] [address] [place] [address] Dr. Isi Forbes WBC 10.1 103/ul Normal 4.0-11.0 [facility] Comment on above: Performed By: #### C BC #### [facility] [address] [address] [address] Isi Forbes US PREG ANATOMY SINGLEon [...] by: ASHLEE STOVER Date: 2022-08-04 16:06 Normal [facility] PAP ACOG PANEL 2: 30 to 65on 07-25-2022 . . Normal [facility] Comment on above: Result Comment: Perf ormed at: [facility] Performed By: #### G TT3P #### [facility] [address] [address] [address] Isi Forbes Age Gdln ACOG Testing 30-65 Normal [facility] Comment on above: Performed By: #### G TT3P #### [facility] [address] [place] [address] Dr. Isi Forbes DIAGNOSIS: Comment Normal [facility] Comment on above: Result Comment: NEGA TIVE FOR INTRAEPITHELIAL LESION OR MALIGNANCY. Performed at: [facility] Performed By: #### G TT3P #### [facility] [address] [address] [address] Isi Forbes HPV Aptima Negative Normal Negative [facility] Comment on above: Result Comment: This nucleic acid amplification test detects fourteen high-risk HPV types (16,18,31,33,35,39,45,51,52,56,58,59,66,68) without differentiation. Performed at: =G Performed By: #### G TT3P #### [facility] [address] [place] [address] Dr. Isi Forbes HPV Genotype Reflex Comment Normal [facility] Comment on above: Result Comment: Crit eria not met, HPV Genotype not performed. Performed at: [facility] Performed By: #### G TT3P #### [facility] [address] [place] [address] Dr. Isi Forbes Methodology: Comment Normal [facility] Comment on above: Result Comment: This liquid based ThinPrep(R) pap test was screened with the use of an image guided system. Performed at: [facility] Performed By: #### G TT3P #### [facility] [address] [place] [address] Dr. Isi Forbes Note: Comment Normal [facility] Comment on above: Result Comment: [...] WB Performed By: #### G TT3P #### [facility] [address] [place] [address] Dr. Isi Forbes Performed by: Comment Normal [facility] Comment on above: Result Comment: Mikki Good, Motor Operator (ASCP) Performed at: [facility] Performed By: #### G TT3P #### [facility] [address] [place] [address] Dr. Isi Forbes Specimen adequacy: Comment Normal [facility] Comment on above: Result Comment: Sati sfactory for evaluation. Endocervical and/or squamous metaplastic cells (endocervical component) are present. Performed at: [facility] Performed By: #### G TT3P #### [facility] [address] [place] [address] Dr. Isi Forbes CHLAMYDIA/GONOCOCCUS SARA (SW AB/URINE/PAPon 07-23-2022 Chlamydia trachomatis, SARA Negative Normal Negative [facility] Comment on above: Performed By: #### C BC #### [facility] [address] [place] [address] Dr. Isi Forbes Neisseria gonorrhoeae, SARA Negative Normal Negative [facility] Comment on above: Performed By: #### C BC #### [facility] [address] [place] [address] Dr. Isi Forbes CBC AUTO DIFFon 06-16-2022 BASO # 0.1 103/ul Normal 0.0-0.1 [facility] Comment on above: Performed By: #### G TT3P #### [facility] [address] [place] [address] Dr. Isi Forbes Basophils/100 WBC (Bld) 0.5 % Normal 0.2-2.0 [facility] Comment on above: Performed By: #### G TT3P #### [facility] [address] [place] [address] Dr. Isi Forbes EO # 0.1 103/ul Normal 0.0-0.7 [facility] Comment on above: Performed By: #### G TT3P #### [facility] [address] [place] [address] Dr. Isi Forbes Eosinophils/100 WBC (Bld) 1.2 % Normal 0.9-7.0 [facility] Comment on above: Performed By: #### G TT3P #### [facility] [address] [address] [address] Isi Forbes Erythrocyte distribution width (RBC) [Ratio] 12.7 % Normal 11.0-15.0 [facility] Comment on above: Performed By: #### G TT3P #### [facility] [address] [place] [address] Dr. Isi Forbes Hematocrit (Bld) [Volume fraction] 33.0 % Critically low 36.0-48.0 [facility] Comment on above: Performed By: #### G TT3P #### [facility] [address] [place] [address] Dr. Isi Forbes Hemoglobin (Bld) [Mass/Vol] 11.3 g/dL Critically low 12.0-16.0 [facility] Comment on above: Performed By: #### G TT3P #### [facility] [address] [place] [address] Dr. Isi Forbes IG # 0.06 10e3/ul Critically high 0.00-0.03 [facility] Comment on above: Performed By: #### G TT3P #### [facility] [address] [place] [address] Dr. Isi Forbes IG % 0.6 % Critically high 0.0-0.5 [facility] Comment on above: Performed By: #### G TT3P #### [facility] [address] [place] [address] Dr. Isi Forbes LYMPH # 2.0 103/ul Normal 1.2-3.8 [facility] Comment on above: Performed By: #### G TT3P #### [facility] [address] [place] [address] Dr. Isi Forbes Lymphocytes/100 WBC (Bld) 20.0 % Critically low 20.5-60.0 [facility] Comment on above: Performed By: #### G TT3P #### [facility] [address] [place] [address] Dr. Isi Forbes MANUAL DIFF REQ NO Normal [facility] Comment on above: Performed By: #### G TT3P #### [facility] [address] [address] [address] Isi Forbes MCH (RBC) [Entitic mass] 31.1 pg Normal 26.7-34.0 [facility] Comment on above: Performed By: #### G TT3P #### [facility] [address] [address] [address] Isi Forbes MCHC (RBC) [Mass/Vol] 34.2 g/dL Normal 29.9-35.2 [facility] Comment on above: Performed By: #### G TT3P #### [facility] [address] [place] [address] Dr. Isi Forbes MCV (RBC) [Entitic vol] 90.9 fL Normal 81.0-99.0 [facility] Comment on above: Performed By: #### G TT3P #### [facility] [address] [place] [address] Dr. Isi Forbes MONO # 0.6 103/ul Normal 0.3-0.8 [facility] Comment on above: Performed By: #### G TT3P #### [facility] [address] [place] [address] Dr. Isi Forbes Monocytes/100 WBC (Bld) 6.0 % Normal 1.7-12.0 [facility] Comment on above: Performed By: #### G TT3P #### [facility] [address] [place] [address] Dr. Isi Forbes NEUT # 7.2 103/ul Critically high 1.4-6.5 [facility] Comment on above: Performed By: #### G TT3P #### [facility] [address] [place] [address] Dr. Isi Forbes Neutrophils/100 WBC (Bld) 71.7 % Normal 43.0-75.0 [facility] Comment on above: Performed By: #### G TT3P #### [facility] [address] [place] [address] Dr. Isi Forbes Platelet mean volume (Bld) [Entitic vol] 9.5 fL Normal 9.5-13.5 [facility] Comment on above: Performed By: #### G TT3P #### [facility] [address] [address] [address] Isi Forbes PLT 244 103/ul Normal 150-450 [facility] Comment on above: Performed By: #### G TT3P #### [facility] [address] [place] [address] Dr. Isi Forbes RBC 3.63 106/ul Critically low 4.20-5.40 [facility] Comment on above: Performed By: #### G TT3P #### [facility] [address] [place] [address] Dr. Isi Forbes WBC 10.0 103/ul Normal 4.0-11.0 [facility] Comment on above: Performed By: #### G TT3P #### [facility] [address] [place] [address] Dr. Isi Forbes ER URINE PROFILEon 2 Bilirubin Ql (U) Negative Normal NEGATIVE [facility] Comment on above: Performed By: #### G TT3P #### [facility] [address] [place] [address] Dr. Isi Forbes Clarity (U) CLEAR Normal CLEAR [facility] Comment on above: Performed By: #### G TT3P #### [facility] [address] [place] [address] Dr. Isi Forbes Color (U) LT. YELLOW Normal YELLOW [facility] Comment on above: Performed By: #### G TT3P #### [facility] [address] [place] [address] Dr. Isi GOOD A micrscopic examination will be performed if indicated. Normal [facility] Comment on above: Performed By: #### G TT3P #### [facility] [address] [place] [address] Dr. Isi Forbes Glucose Ql (U) Negative Normal NEGATIVE [facility] Comment on above: Performed By: #### G TT3P #### [facility] [address] [place] [address] Dr. Isi Frobes Hemoglobin Ql (U) Negative Normal NEGATIVE [facility] Comment on above: Performed By: #### G TT3P #### [facility] [address] [place] [address] Dr. Isi Forbes Ketones Ql (U) Negative Normal NEGATIVE [facility] Comment on above: Performed By: #### G TT3P #### [facility] [address] [place] [address] Dr. Isi Forbes LEUKOCYTES TRACE Abnormal NEGATIVE [facility] Comment on above: Performed By: #### G TT3P #### [facility] [address] [place] [address] Dr. Isi Forbes Nitrite Ql (U) Negative Normal NEGATIVE [facility] Comment on above: Performed By: #### G TT3P #### [facility] [address] [place] [address] Dr. Isi Forbes pH (U) 7.0 [pH] Normal 5-9 [facility] Comment on above: Performed By: #### G TT3P #### [facility] [address] [place] [address] Dr. Isi Forbes SPEC GRAVITY 1.020 Normal 1.005-<=1.025 [facility] Comment on above: Performed By: #### G TT3P #### [facility] [address] [place] [address] Dr. Isi Forbes UA PROTEIN Negative Normal NEGATIVE/ TRACE [facility] Comment on above: Performed By: #### G TT3P #### [facility] [address] [place] [address] Dr. Isi Forbes UR MICRO IND INDICATED Normal [facility] Comment on above: Performed By: #### G TT3P #### [facility] [address] [place] [address] Dr. Isi Forbes Urobilinogen Qn (U) 0.2 {Barb'U}/dL Normal 0.2 - 1. 0 [facility] Comment on above: Performed By: #### G TT3P #### [facility] [address] [place] [address] Dr. Isi Forbes PROF CHEM 8 (BAS METB)on Anion gap [Moles/Vol] 11.8 mmol/L Normal [facility] Comment on above: Performed By: #### G TT3P #### [facility] [address] [address] [address] Isi Forbes Calcium [Mass/Vol] 8.8 mg/dL Normal 8.5-10.1 [facility] Comment on above: Performed By: #### G TT3P #### [facility] [address] [address] [address] Isi Forbes Chloride [Moles/Vol] 102 mmol/L Normal 98-107 [facility] Comment on above: Performed By: #### G TT3P #### [facility] [address] [place] [address] Dr. Isi Forbes CO2 [Moles/Vol] 26.9 mmol/L Normal 21.0-32.0 [facility] Comment on above: Performed By: #### G TT3P #### [facility] [address] [address] [address] Isi Forbes Creatinine [Mass/Vol] 0.42 mg/dL Critically low 0.55-1.02 [facility] Comment on above: Performed By: #### G TT3P #### [facility] [address] [place] [address] Dr. Isi Forbes EGFR-AF ZIMBABWEAN >60 Normal >=60 [facility] Comment on above: Performed By: #### G TT3P #### [facility] [address] [place] [address] Dr. Isi Forbes EGFR-NON AF ZIMBABWEAN >60 Normal >=60 [facility] Comment on above: Performed By: #### G TT3P #### [facility] [address] [place] [address] Dr. Isi Forbes Glucose [Mass/Vol] 86 mg/dL Normal 74-106 [facility] Comment on above: Performed By: #### G TT3P #### [facility] [address] [place] [address] Dr. Isi Forbes Potassium [Moles/Vol] 3.7 mmol/L Normal 3.5-5.1 [facility] Comment on above: Performed By: #### G TT3P #### [facility] [address] [place] [address] Dr. Isi Forbes Sodium [Moles/Vol] 137 mmol/L Normal 136-145 [facility] Comment on above: Performed By: #### G TT3P #### [facility] [address] [place] [address] Dr. Isi Forbes Urea nitrogen [Mass/Vol] 9.0 mg/dL Normal 7.0-18.0 [facility] Comment on above: Performed By: #### G TT3P #### [facility] [address] [place] [address] Dr. Isi Forbes Urea nitrogen/Creatinine [Mass ratio] 21.4 mg/mg Normal [facility] Comment on above: Performed By: #### G TT3P #### [facility] [address] [place] [address] Dr. Isi Forbes URINE MICROSCOPIC ONLYon BACTERIA TRACE Abnormal NONE SEEN [facility] Comment on above: Performed By: #### C BC #### [facility] [address] [place] [address] Dr. Isi Forbes Bacteria identified Cx Nom (U) NOT INDICATED Normal [facility] Comment on above: Performed By: #### C BC #### [facility] [address] [place] [address] Dr. Isi Forbes CAST NONE SEEN Normal NONE SEEN [facility] Comment on above: Performed By: #### C BC #### [facility] [address] [place] [address] Dr. Isi Forbes Crystals LM Nom (Urine sed) NONE SEEN Normal NONE SEEN [facility] Comment on above: Performed By: #### C BC #### [facility] [address] [place] [address] Dr. Isi Forbes Epithelial cells LM Ql (Urine sed) MODERATE Abnormal NONE SEEN /RARE [facility] Comment on above: Performed By: #### C BC #### [facility] [address] [place] [address] Dr. Isi Forbes MUCOUS NONE SEEN Normal NONE SEEN [facility] Comment on above: Performed By: #### C BC #### [facility] [address] [place] [address] Dr. Isi Forbes RBC NONE SEEN Abnormal 0-2 [facility] Comment on above: Performed By: #### C BC #### [facility] [address] [place] [address] Dr. Isi Forbes WBC 2-5 Abnormal NONE SEEN [facility] Comment on above: Performed By: #### C BC #### [facility] [address] [place] [address] Dr. Iis Forbes HEP B SURFACE ANTIGEN SCREEN on 06-05-2022 HBsAg Screen Negative Normal Negative [facility] Comment on above: Performed By: #### H BSANS #### [facility] [address] [place] [address] Dr. Isi Forbes HEPATITIS C VIRUS AB W/ REFL EX QUANTon 06-05-2022 HCV AB 0.1 s/co ratio Normal 0.0-0.9 [facility] Comment on above: Performed By: #### G TT3P #### [facility] [address] [place] [address] Dr. Isi Forbes Interpretation: Comment Normal [facility] Comment on above: Result Comment: Nega tive Not infected with HCV, unless recent infection is suspected or other evidence exists to indicate HCV infection. Performed By: #### G TT3P #### [facility] [address] [place] [address] Dr. Isi Forbes HIV 1 AND 2 WITH REFLEXon HIV Screen 4th Generation wRfx Non-Reactive Normal Non Reactive [facility] Comment on above: Result Comment: HIV Negative HIV-1/HIV-2 antibodies and HIV-1 p24 antigen were NOT detected. There is no laboratory evidence of HIV infection. Performed By: #### C BC #### [facility] [address] [place] [address] Dr. Isi Forbes RPR QUANTon 06-05-2022 Rapid Plasma Reagin, Quant Non-Reactive Normal NonRea<1:1 [facility] Comment on above: Result Comment: Irma hummel Note: This test does not meet current guidelines for screening and diagnosis of syphilis. This test is intended for following treatment response in patients being treated for syphilis infection. To screen for syphilis infection, a reflex cascade that includes both RPR and a treponema-specific assay should be utilized, such as Treponema pallidum (Syphilis) Screening Rabun (117780) or Rapid Plasma Reagin (RPR) Test With Reflex to Quantitative RPR and Confirmatory Treponema pallidum Antibodies (055135). Performed By: #### R PRQ #### [facility] [address] [place] [address] Dr. Isi Forbes RUBELLA AB IGGon 06-05-2022 Rubella Antibodies, IgG 6.87 index Normal Immune >0.99 [facility] Comment on above: Result Comment: Non- immune <0.90 Equivocal 0.90 - 0.99 Immune >0.99 Performed By: #### R PRQ #### [facility] [address] [place] [address] Dr. Isi Forbes CBC AUTO DIFFon 06-04-2022 BASO # 0.0 103/ul Normal 0.0-0.1 [facility] Comment on above: Performed By: #### C BC #### [facility] [address] [place] [address] Dr. Isi Forbes Basophils/100 WBC (Bld) 0.5 % Normal 0.2-2.0 [facility] Comment on above: Performed By: #### C BC #### [facility] [address] [place] [address] Dr. Isi Forbes EO # 0.1 103/ul Normal 0.0-0.7 [facility] Comment on above: Performed By: #### C BC #### [facility] [address] [place] [address] Dr. Isi Forbes Eosinophils/100 WBC (Bld) 1.5 % Normal 0.9-7.0 [facility] Comment on above: Performed By: #### C BC #### [facility] [address] [place] [address] Dr. Isi Forbes Erythrocyte distribution width (RBC) [Ratio] 12.1 % Normal 11.0-15.0 [facility] Comment on above: Performed By: #### C BC #### [facility] [address] [place] [address] Dr. Isi Forbes Hematocrit (Bld) [Volume fraction] 35.3 % Critically low 36.0-48.0 [facility] Comment on above: Performed By: #### C BC #### [facility] [address] [place] [address] Dr. Isi Forbes Hemoglobin (Bld) [Mass/Vol] 12.2 g/dL Normal 12.0-16.0 [facility] Comment on above: Performed By: #### C BC #### [facility] [address] [place] [address] Dr. Isi Forbes IG # 0.03 10e3/ul Normal 0.00-0.03 [facility] Comment on above: Performed By: #### C BC #### [facility] [address] [place] [address] Dr. Isi Forbes IG % 0.3 % Normal 0.0-0.5 [facility] Comment on above: Performed By: #### C BC #### [facility] [address] [place] [address] Dr. Isi Forbes LYMPH # 1.7 103/ul Normal 1.2-3.8 [facility] Comment on above: Performed By: #### C BC #### [facility] [address] [place] [address] Dr. Isi Forbes Lymphocytes/100 WBC (Bld) 20.1 % Critically low 20.5-60.0 [facility] Comment on above: Performed By: #### C BC #### [facility] [address] [place] [address] Dr. Isi Forbes MANUAL DIFF REQ NO Normal [facility] Comment on above: Performed By: #### C BC #### [facility] [address] [place] [address] Dr. Isi Forbes MCH (RBC) [Entitic mass] 30.7 pg Normal 26.7-34.0 [facility] Comment on above: Performed By: #### C BC #### [facility] [address] [place] [address] Dr. Isi Forbes MCHC (RBC) [Mass/Vol] 34.6 g/dL Normal 29.9-35.2 [facility] Comment on above: Performed By: #### C BC #### [facility] [address] [place] [address] Dr. Isi Forbes MCV (RBC) [Entitic vol] 88.9 fL Normal 81.0-99.0 [facility] Comment on above: Performed By: #### C BC #### [facility] [address] [place] [address] Dr. Isi Forbes MONO # 0.5 103/ul Normal 0.3-0.8 [facility] Comment on above: Performed By: #### C BC #### [facility] [address] [place] [address] Dr. Isi Forbes Monocytes/100 WBC (Bld) 5.4 % Normal 1.7-12.0 [facility] Comment on above: Performed By: #### C BC #### [facility] [address] [place] [address] Dr. Isi Forbes NEUT # 6.2 103/ul Normal 1.4-6.5 [facility] Comment on above: Performed By: #### C BC #### [facility] [address] [place] [address] Dr. Isi Forbes Neutrophils/100 WBC (Bld) 72.2 % Normal 43.0-75.0 [facility] Comment on above: Performed By: #### C BC #### [facility] [address] [place] [address] Dr. Isi Forbes Platelet mean volume (Bld) [Entitic vol] 9.4 fL Critically low 9.5-13.5 [facility] Comment on above: Performed By: #### C BC #### [facility] [address] [place] [address] Dr. Isi Forbes PLT 257 103/ul Normal 150-450 [facility] Comment on above: Performed By: #### C BC #### [facility] [address] [address] [address] Isi Forbes RBC 3.97 106/ul Critically low 4.20-5.40 [facility] Comment on above: Performed By: #### C BC #### [facility] [address] [address] [address] Isi Forbes WBC 8.6 103/ul Normal 4.0-11.0 [facility] Comment on above: Performed By: #### C BC #### [facility] [address] [place] [address] Dr. Isi Forbes CULTURE URINEon 06-04-2022 CULTURE URINE Culture Observations : LIGHT GROWTH OF MIXED GENITAL ALOK. NO POTENTIAL PATHOGENS SEEN. Normal [facility] Comment on above: Performed By: #### U RCX #### [facility] [address] [place] [address] Dr. Isi Forbes DRUG SCREEN RAPID (URINE)on 06-04-2022 AMP Negative Normal NEGATIVE [facility] Comment on above: Performed By: #### G TT3P #### [facility] [address] [place] [address] Dr. Isi Forbes BAR Negative Normal NEGATIVE [facility] Comment on above: Performed By: #### G TT3P #### [facility] [address] [place] [address] Dr. Isi Forbes BUP Negative Normal NEGATIVE [facility] Comment on above: Performed By: #### G TT3P #### [facility] [address] [place] [address] Dr. Isi Forbes BZO Negative Normal NEGATIVE [facility] Comment on above: Performed By: #### G TT3P #### [facility] [address] [place] [address] Dr. Isi Forbes BEATA Negative Normal NEGATIVE [facility] Comment on above: Performed By: #### G TT3P #### [facility] [address] [place] [address] Dr. Isi Forbes CUT-OFFS SEE BELOW Normal [facility] Comment on above: Result Comment: AMP (Amphetamine): 500ng/mL, BAR (Barbituates): 200 ng/mL, BZO (Benzodiazepines): 150 ng/mL, BUP (Buprenorphine): 10 ng/mL, BEATA (Cocaine): 150 ng/mL, mAMP (Methamphetamine): 500 ng/mL, MTD (Methadone): 200 ng/mL, OPI (Opiates): 100 ng/mL, OXY (Oxycodone): 100 ng/mL, PCP (Phencyclidine): 25 ng/mL, PPX (Propoxyphene): 300 ng/mL, THC (Cannabinoids): 50 ng/mL, TCA (Trycyclic Antidepressants): 300 ng/mL Performed By: #### G TT3P #### [facility] [address] [place] [address] Dr. Isi Forbes DRUG CUT HEADER DRUG CLASS TEST SYSTEM CUT-OFF CONCENTRATIONS ARE FOLLOWS: Normal [facility] Comment on above: Performed By: #### G TT3P #### [facility] [address] [place] [address] Dr. Isi Forbes mAMP Negative Normal NEGATIVE [facility] Comment on above: Performed By: #### G TT3P #### [facility] [address] [place] [address] Dr. Isi Forbes MTD Negative Normal NEGATIVE [facility] Comment on above: Performed By: #### G TT3P #### [facility] [address] [place] [address] Dr. Isi Forbes OPI Negative Normal NEGATIVE [facility] Comment on above: Performed By: #### G TT3P #### [facility] [address] [place] [address] Dr. Isi Forbes OXY Negative Normal NEGATIVE [facility] Comment on above: Performed By: #### G TT3P #### [facility] [address] [place] [address] Dr. Isi Forbes PCP Negative Normal NEGATIVE [facility] Comment on above: Performed By: #### G TT3P #### [facility] [address] [place] [address] Dr. Isi Forbes PPX Negative Normal NEGATIVE [facility] Comment on above: Performed By: #### G TT3P #### [facility] [address] [address] [address] Isi Forbes TCA Negative Normal NEGATIVE [facility] Comment on above: Performed By: #### G TT3P #### [facility] [address] [address] [address] Isi Forbes THC Positive Abnormal NEGATIVE [facility] Comment on above: Performed By: #### G TT3P #### [facility] [address] [address] [address] Isi Forbes GLYCOHEMOGLOBIN A1Con 2021 ADA RECOMMENDATION SEE BELOW Normal [facility] Comment on above: Result Comment: ADA RECOMMENDED LIMIT 4.0 - 6.0 ADA THERAPEUTIC TARGET < 7.0 ACTION SUGGESTED > 7.0 Performed By: #### A 1C #### [facility] [address] [place] [address] Dr. Isi Forbes Glucose [Mass/Vol] 111 mg/dL Normal [facility] Comment on above: Performed By: #### A 1C #### [facility] [address] [address] [address] Isi Forbes HbA1c (Bld) [Mass fraction] 5.5 % Normal 4.5-6.2 [facility] Comment on above: Performed By: #### A 1C #### [facility] [address] [place] [address] Dr. Isi Forbes AUTUMN BOX TEST PT SEND OUTo n 06-04-2022 SENT TO REF LAB 06/04/2022 Normal [facility] Comment on above: Performed By: #### R PRQ #### [facility] [address] [address] [address] Isi Forbes TYPE AND SCREENon 06-04-2022 TYPE AND SCREEN Negative Normal [facility] Comment on above: Performed By: #### T NS #### [facility] [address] [place] [address] Dr. Isi Forbes US PREG TVon 05-18-2022 [...] AGE BY LMP: 9 weeks 5 days FREDDEI BY LMP: 12/15/2022 AGE BY US CRL: 9 weeks 3 days FREDDIE BY US CRL: 12/17/2022 IMPRESSION: 1. Single live intrauterine . Electronically authenticated by: FREDY DICK Date: 2022-05-18 05:51 Normal [facility] HCG,Urineon 11-04-2020 Beta HCG ( test) Ql (U) Negative Normal [facility] Comment on above: Result Comment: PERF ORMED BY: [place] [address] PATHOLOGIST [employer] MIKE LECHUGA M.D. Performed By: #### U HCG #### [address] Yassine 11-04-2020 L - -------- Specimen: Received: 11/04/20 Status: PRASAD Sandoval Num: [id number] Spec Type: Surgical Subm Dr: Esequiel Lyles MD Tissues: A Duodenum - Biopsy (DUODENAL BX) Procedures: HE Stain/2, Gross/Micro L4 -------- Patient Age/Sex Location Account Attending Physician -------- Debbi Prado 30/[facility] [id number] Esequiel Lyles MD -------- SPEC NUM: [id number] RECD: 11/04/20 STATUS: PRASAD NICK NUM: [id number] LADAN: 11/04/[address] [facility] [address]: Esequiel Lyles MD ENTERED: 11/04/20 [facility] DR: BETINA TYPE: Surgical DEPT: S ORDERED: HE Stain/2, [...] diagnosis. -------- Specimen: Received: 11/04/20 Status: PRASAD Nick Num: [id number] Spec Type: Surgical Subm Dr: Esequiel Lyles MD Tissues: A Duodenum - Biopsy (DUODENAL BX) Procedures: HE Stain/2, Gross/Micro L4 -------- Patient: Debbi Prado [id number] (Continued) -------- Specimen: Received: 11/04/20 (Continued) Signed (signature on file) Rhys Mckenzie MD 11/05/20 1050 -------- Specimen: Received: 11/04/20 Status: PRASAD Nick Num: [id number] Spec Type: Surgical Subm Dr: Esequiel Lyles MD Tissues: A Duodenum - Biopsy (DUODENAL BX) Procedures: HE Stain/2, Gross/Micro L4 -------- Patient: Debbi Prado [id number] (Continued) -------- Specimen: Received: 11/04/20 (Continued) CPT Codes 55888 -------- -------- Specimen: Received: 11/04/20 Status: PRASAD Nick Num: [id number] Spec Type: Surgical Subm Dr: Esequiel Lyles MD Tissues: A Duodenum - Biopsy (DUODENAL BX) Procedures: HE Stain/2, Gross/Micro L4 -------- Patient: Debbi Prado [id number] (Continued) -------- Signed (signature on file) Rhys Mckenzie MD 11/05/20 1050 Normal [facility] COVID[facility] SARS-CoV-2 (COVID-19) RNA SARA+probe Ql (Unsp spec) Negative Normal Negative [facility] Comment on above: Order Comment: Healt hcare Worker?: N Result Comment: Refe rence: Negative Testing for SARS-CoV-2 by RT-PCR This test was developed and its performance characteristics determined by [employer] and validated at the [facility]. This test has not been FDA cleared [...] is terminated or revoked sooner. PERFORMED BY: [address] [address] PATHOLOGIST [employer] MIKE LECHUGA M.D. Performed By: #### C OVID-19 [facility] #### [facility] [address] Coding Summaryon 05-26-2020 Coding Summary CODING DATE: 05/26/2020 [facility] STATUS: Home PAYOR: [employer] ADMIT [...] Posada Date Saved: 05/26/2020 08:27 am [facility] Consent Formson 05-26-2020 Consent Forms [id number] [facility] [place] 05-26-2020 Provider Orders [id number] [facility] 2019 Novel Coronavirus (CoVI D-19), SARA LCon 05-24-2020 SARS-CoV-2, SARA (COVID-19) LC Not Detected Not Detected [facility] Comment on above: Order Comment: [phone] Result Comment: This nucleic acid amplification test was developed and its performance characteristics determined by [employer]. Nucleic acid amplification tests include PCR and [...] detected) result in this assay. Performed At: [facility] [address] [facility] [place] [id number] Rere Bejarano MD Ph:[phone] Performed By: #### 6 [id number] ####[facility] (DEFAULT)[address] [place] [address] Progress Note - Nurseon Progress Note - Nurse Nasal swab perform ed without complication. Patient tolerated well. Education given. Patient verbalized understanding. [Electronically Signed on: 05/22/2020 11:25 EST] Genesis Ndiaye RN [Verified on: 05/22/2020 11:25 EST] Genesis Ndiaye RN Normal [facility] Ambulatory Clinical Summaryo n 04-11-2020 Ambulatory Clinical Summary {[id number] [facility] Coding Summaryon 02-21-2020 Coding Summary CODING DATE: 02/21/2020 [facility] STATUS: Home PAYOR: [employer] ADMIT [...] Ashleigh Posada Date Saved: 02/21/2020 02:14 pm Normal [facility] Consent Formson 02-18-2020 Consent Forms [id number] .[facility] 2019 Novel Coronavirus (CoVI D-19), SARA LCon 02-16-2020 SARS-CoV-2, SARA (COVID-19) LC Not Detected Not Detected [facility] Comment on above: Result Comment: This test was developed and its performance characteristics determined by [employer]. This test has not been FDA cleared [...] detected) result in this assay. Performed At: [facility] [address] [place] [address] [place] [id number] Rere Bejarano MD Ph:[phone] Performed By: #### 6 [id number] ####[facility] (DEFAULT)[address] [place] [address] Provider Orderson 02-15-2020 Provider Orders [id number] .[facility] Provider Orderson 02-14-2020 Provider Orders [id number] .[facility] IgA, Quant.on 02-13-2020 IgA [Mass/Vol] 202 mg/dL 87-352 [facility] Comment on above: Result Comment: Perf ormed at: [facility] [address] [place], [place] [id number] PhD Dennis Toussaint Performed By: #### 2 692843, 0118085, 35797983, 7918410, 93634858, 66683820, 23195197 ####[facility] [address] [place] [address] t-TRANSGLUTAMINASE IgAon tTG IgA Qn (S) <2 0-3 [facility] Comment on above: Result Comment: Nega tive 0 - 3 Weak Positive 4 - 10 Positive >10 Tissue Transglutaminase (tTG) has been identified as the endomysial antigen. Studies have demonstr- ated that endomysial IgA antibodies have over 99% specificity for gluten sensitive enteropathy. Performed at: [facility] [address] [place], [place] [id number] PhD Dennis Toussaint Performed By: #### 2 274372, 4075149, 15462769, 1833640, 19709946, 65783892, 33963976 #### [facility] [address] [place] [address] Coding Summary.on 02-12-2020 Coding Summary. CODING DATE: 02/12/2020 FINAL [facility] STATUS: Home (Routine DC) PAYOR: Commercial [...] Saved: 02/12/2020 09:01 am Normal [facility] Auto Diffon 02-11-2020 Basophils/100 WBC (Bld) 0.5 % Normal 0.0-2.0 [facility] Comment on above: Order Comment: Order Added by Discern Expert. Performed By: #### 2 363918, 9910490, 47660132, 8088661, 69255062, 79216876, 11362694 #### [facility] [address] [place] [address] Basophils/Leukocytes Auto (Bld) [Pure # fraction] 0.0 E9/L Normal 0.0-0.2 [facility] Comment on above: Order Comment: Order Added by Discern Expert. Performed By: #### 2 364346, 9350058, 92352808, 2377701, 98041288, 66854418, 32589348 #### [facility] [address] [place] [address] Eosinophils/100 WBC (Bld) 1.7 % Normal 0.0-8.0 [facility] Comment on above: Order Comment: Order Added by [employer] Expert. Performed By: #### 2 058307, 0455325, 56958095, 4038746, 99392332, 75834286, 18924396 #### [facility] [address] [place] [address] Eosinophils/Leukocyte s Auto (Bld) [Pure # fraction] 0.2 E9/L Normal 0.0-0.5 [facility] Comment on above: Order Comment: Order Added by Discern Expert. Performed By: #### 2 290108, 1655861, 07591703, 0168350, 43266726, 24530190, 64062020 #### [facility] [address] [place] [address] Lymphocytes/100 WBC (Bld) 21.9 % Normal 14.0-50.0 [facility] Comment on above: Order Comment: Order Added by Discern Expert. Performed By: #### 2 376489, 3122050, 51554460, 0152558, 14172246, 07831430, 33464804 #### [facility] [address] [place] [address] Lymphocytes/Leukocyte s Auto (Bld) [Pure # fraction] 2.0 E9/L Normal 1.0-4.0 [facility] Comment on above: Order Comment: Order Added by [employer] Expert. Performed By: #### 2 670451, 2147442, 15133128, 7922739, 60363174, 15860232, 62913102 #### [facility] [address] [place] [address] Monocytes/100 WBC (Bld) 7.6 % Normal 4.0-14.0 [facility] Comment on above: Order Comment: Order Added by Discern Expert. Performed By: #### 2 937529, 9907956, 99955223, 3242005, 83921512, 87735818, 82711134 #### [facility] [address] [place] [address] Monocytes/Leukocytes Auto (Bld) [Pure # fraction] 0.7 E9/L Normal 0.2-1.0 [facility] Comment on above: Order Comment: Order Added by [employer] Expert. Performed By: #### 2 662696, 6301359, 89918280, 8885992, 51922747, 82689552, 18814500 #### [facility] [address] [place] [address] Neutrophils/100 WBC (Bld) 68.3 % Normal 36.0-75.0 [facility] Comment on above: Order Comment: Order Added by Lila Expert. Performed By: #### 2 462103, 3978260, 95536576, 5982781, 16169626, 89381295, 65531076 #### [facility] [address] [place] [address] Neutrophils/Leukocyte s Auto (Bld) [Pure # fraction] 6.2 E9/L Normal 2.0-7.5 [facility] Comment on above: Order Comment: Order Added by [employer] Expert. Performed By: #### 2 460368, 9265647, 06881559, 5871695, 86507066, 00248100, 97819403 #### [facility] [address] [place] [address] CBC w/ Auto Diffon Erythrocyte distribution width (RBC) [Ratio] 13.1 % Normal 10.9-14.2 [facility] Comment on above: Performed By: #### 2 228438, 6141320, 44336699, 3363444, 68782482, 45318034, 77923918 #### [facility] [address] [place] [address] Hematocrit (Bld) [Volume fraction] 41.8 % Normal 34.0-46.0 [facility] Comment on above: Performed By: #### 2 691907, 4102842, 56567284, 6641259, 46503380, 65094724, 83256639 #### [facility] [address] [id number] Hemoglobin (Bld) [Mass/Vol] 13.9 g/dL Normal 12.0-16.0 [facility] Comment on above: Performed By: #### 2 119455, 9001335, 74417070, 7649161, 48921107, 44718787, 94717868 #### [facility] [address] [place] [address] MCH (RBC) [Entitic mass] 30.7 pg Normal 27.0-34.0 [facility] Comment on above: Performed By: #### 2 268753, 4425540, 82576116, 7139632, 12937568, 55837867, 51014196 #### [facility] [address] [place] [address] MCHC (RBC) [Mass/Vol] 33.4 g/dL Normal 31.4-36.0 [facility] Comment on above: Performed By: #### 2 678874, 4247727, 28577572, 8994096, 94603998, 37745681, 59174449 #### [facility] [address] [place] [address] MCV (RBC) [Entitic vol] 92.1 fL Normal 80.0-100.0 [facility] Comment on above: Performed By: #### 2 009151, 2632020, 23406276, 0271701, 93480061, 15547969, 38458793 #### [facility] [address] [place] [address] Platelet mean volume (Bld) [Entitic vol] 7.7 fL Normal 6.4-10.8 [facility] Comment on above: Performed By: #### 2 849582, 5328424, 72221142, 7831390, 59256542, 89274369, 47271168 #### [facility] [address] [place] [address] Platelets (Bld) [#/Vol] 338.0 E9/L Normal 150.0-500.0 [facility] Comment on above: Performed By: #### 2 802675, 1057445, 32581629, 4837764, 31524160, 24637641, 29186191 #### [facility] [address] [place] [address] RBC (Bld) [#/Vol] 4.5 E12/L Normal 4.3-5.9 [facility] Comment on above: Performed By: #### 2 355266, 3074869, 28027776, 4935216, 30881538, 65740410, 45429879 #### [facility] [address] [place] [address] WBC corrected for nucl RBC Auto (Bld) [#/Vol] 9.1 E9/L Normal 4.0-11.0 [facility] Comment on above: Performed By: #### 2 568226, 9616700, 19835626, 8689588, 31548424, 13543152, 21396950 #### [facility] [address] [place] [address] CMPon 02-11-2020 Albumin [Mass/Vol] 1.4 g/dL Normal 1.1-2.2 [facility] Comment on above: Performed By: #### 2 374384, 6848308, 30510299, 3295270, 71820499, 55125151, 90184458 #### [facility] [address] [place] [address] Albumin [Mass/Vol] 4.5 g/dL Normal 3.3-5.0 [facility] Comment on above: Performed By: #### 2 100764, 2303616, 19278796, 5567821, 45050747, 56142346, 14033051 #### [facility] [address] [place] [address] ALP [Catalytic activity/Vol] 58 Int._Unit/L Normal 21-98 [facility] Comment on above: Performed By: #### 2 118448, 4745691, 25529445, 2089823, 77274406, 52526774, 98437515 #### [facility] [address] [place] [address] ALT No additional P-5'-P [Catalytic activity/Vol] 33 Int._Unit/L Normal 6-46 [facility] Comment on above: Performed By: #### 2 756583, 9721870, 58356286, 9929759, 69827945, 45511109, 54571874 #### [facility] [address] [place] [address] Anion gap [Moles/Vol] 12 mmol/L Normal 6-16 [facility] Comment on above: Performed By: #### 2 660517, 6111451, 97905247, 9591703, 29650742, 83160847, 83753718 #### [facility] [address] [place] [address] AST [Catalytic activity/Vol] 22 Int._Unit/L Normal 5-43 [facility] Comment on above: Performed By: #### 2 232534, 9955513, 54977988, 4771907, 80943555, 66465070, 54926648 #### [facility] [address] [place] [address] Bilirubin [Mass/Vol] 0.5 mg/dL Normal 0.0-1.1 [facility] Comment on above: Performed By: #### 2 934505, 7287014, 30450331, 3082191, 27335145, 35958667, 03618607 #### [facility] [address] [place] [address] Calcium [Mass/Vol] 9.2 mg/dL Normal 8.9-11.1 [facility] Comment on above: Performed By: #### 2 160081, 2134649, 96613748, 1912091, 40464247, 61878473, 65165768 #### [facility] [address] [place] [address] Chloride [Moles/Vol] 106 mmol/L Normal 101-111 [facility] Comment on above: Performed By: #### 2 243502, 6181787, 98095854, 5299324, 59608596, 70093816, 37660511 #### [facility] [address] [place] [address] CO2 [Moles/Vol] 23 mmol/L Normal 21-31 [facility] Comment on above: Performed By: #### 2 900789, 5060778, 82696409, 2893191, 86368269, 81780895, 42368600 #### [facility] [address] [place] [address] Creatinine [Mass/Vol] 0.6 mg/dL Normal 0.5-1.3 [facility] Comment on above: Performed By: #### 2 958292, 9279437, 99337377, 7167469, 30773973, 00836373, [id number] #### [facility] [address] [place] [address] Globulin (S) [Mass/Vol] 3.3 g/dL Normal 1.4-4.0 [facility] Comment on above: Performed By: #### 2 540048, 4714786, 46800120, 6982465, 55555620, 98233773, [id number] #### [facility] [address] [place] [address] Glucose [Mass/Vol] 94 mg/dL Normal 55-199 [facility] Comment on above: Result Comment: If t his glucose result represents a fasting glucose, interpretation should refer to the following reference range: 55-99 mg/dL Performed By: #### 2 180510, 3333146, 10407033, 2298439, 21632247, 34726187, 08815222 #### [facility] [address] [place] [address] Potassium [Moles/Vol] 3.9 mmol/L Normal 3.5-5.3 [facility] Comment on above: Performed By: #### 2 685117, 5151628, 11628623, 0980163, 77852720, 32320318, 53254765 #### [facility] [address] [place] [address] Protein [Mass/Vol] 7.8 g/dL Normal 6.0-7.8 [facility] Comment on above: Performed By: #### 2 152588, 5164205, 88132140, 5454421, 05168579, 77778651, 12931833 #### [facility] [address] [place] [address] Sodium [Moles/Vol] 137 mmol/L Normal 135-145 [facility] Comment on above: Performed By: #### 2 972754, 9955781, 27818304, 7137919, 61367241, 80102350, 63286953 #### [facility] [address] [place] [address] Urea nitrogen [Mass/Vol] 12 mg/dL Normal 5-21 [facility] Comment on above: Performed By: #### 2 966722, 9737371, 76283260, 6488290, 82097849, 66075692, 82553492 #### [facility] [address] [place] [address] Urea nitrogen/Creatinine [Mass ratio] 20 No Units Normal 10-20 [facility] Comment on above: Performed By: #### 2 743389, 2666729, 88738768, 1084670, 06817059, 79402743, 21148252 #### [facility] [address] [place] [address] Coding Summaryon 02-11-2020 Coding Summary CODING DATE: 02/11/2020 [facility] STATUS: Home PAYOR: [employer] ADMIT [...] Akers Date Saved: 02/11/2020 08:49 am [facility] Consent for Treatmenton 01-16 Consent for Treatment [id number] .00CD:127 Normal [facility] Gastroenterology Office/Clin ic Noteon 02-11-2020 Gastroenterology Office/Clinic [...] q8hr, # 20 tab(s), Refills(s) 1, Pharmacy: [facility]/pharmacy #[id number], 167.64, cm, 02/11/20 15:12:00 EDT, Height/Length [...] day(s), # 120 cap(s), Refills(s) 11, Pharmacy: [facility]/pharmacy #[id number], 167.64, cm, 02/11/20 15:12:00 EDT, Height/Length [...] day(s), # 20 tab(s), Refills(s) 0, Pharmacy: [facility]/pharmacy #[id number], 167.64, cm, 02/11/20 15:12:00 EDT, Height/Length Measured, 90.4, kg, 02/11/20 15:12:00 EDT, Weight Measured 6. Cyclic vomiting syndrome (R11.15: Cyclical vomiting syndrome unrelated to migraine) Advised to stop marijuana use Follow-up With When Contact Information Emma GUTIERREZ MD Within 2 weeks [facility] [place] [address] [place] [address]- Additional Instructions: Patient Education Nausea, Adult Problem [...] Family history is negative Normal [facility] Comment on above: Result Comment: Elec tronically Signed By: BRENDA OSCAR, Emma\.br\Date and Time Signed: 02/11/20 15:55 EDT Patient [...] Document Reviewed: 03/15/2012 ExitCare? Patient Information ?2013 [employer]. Normal [facility] Sed Rate Automatedon 020 ESR (Bld) [Velocity] 10 mm/h Normal 0-34 [facility] Comment on above: Performed By: #### 2 847930, 2211822, 86365294, 7701201, 69987923, 39782854, 75895235 #### [facility] [address] [place] [address] eGFRon 02-11-2020 GFR/1.73 sq M predicted among blacks MDRD (S/P/Bld) [Vol rate/Area] mL/min/{1.73_m2} Normal >=59 [facility] Comment on above: Order Comment: Order added by Discern Expert. Result Comment: eGFR is race adjusted. AA=. Performed By: #### 2 872480, 9628528, 68730906, 0500094, 72557549, 81080341, 64898872 #### [facility] [address] [place] [address] GFR/1.73 sq M predicted among non-blacks MDRD (S/P/Bld) [Vol rate/Area] mL/min/{1.73_m2} Normal >=59 [facility] Comment on above: Order Comment: Order added by Discern Expert. Result Comment: Sharepoint Engineer eulogio kidney disease could be indicated at eGFR's of less than 60 mL/min/1.73m2. Kidney failure is indicated at less than 15 mL/min/1.73m2. Performed By: #### 2 967468, 0713219, 19819158, 8521089, 98488528, 52846578, 77294590 #### [facility] [address] [place] [address] Historical Records Officeon 02-08-2020 Historical Records Office [id number]. 00CD:127 Normal [facility] - Immunology/Serology Re sultson 01-31-2020 Lab - Immunology/Serology Results [id number] 1.00OTGTIFF Normal [facility] SARS-CoV-2 (COVID-19) PCRon 01-30-2020 COVID-19 PCR Not Detected Normal Not Detected [facility] Comment on above: Order Comment: Sent to [facility] Performed By: #### 6 [id number] ####[facility] (DEFAULT)[address] [place] [address] Provider Orderson 01-29-2020 Provider Orders [id number] .00OTGTIFF Normal [facility] Encounters Encounter Date Encounter Type Care Provider Facility Start: 03-08-2024 End: 03-08-2024 ambulatory BECKI GARRETT Not Available Start: 02-23-2024 End: 02-23-2024 ambulatory SHEEBA RITU Not Available Start: 02-09-2024 End: 02-09-2024 ambulatory SHEEBA MERAEY Not Available Start: 01-24-2024 End: 01-24-2024 ambulatory BECKI GARRETT Not Available Start: 01-20-2024 End: 01-21-2024 Emergency department patient visit [facility] Start: 01-20-2024 End: 01-20-2024 Emergency department patient visit [facility] Start: 01-12-2024 End: 01-12-2024 ambulatory BECKI GARRETT Not Available Start: 12-15-2023 End: 12-15-2023 ambulatory BECKI GARRETT Not Available Start: 11-25-2023 End: 11-25-2023 ambulatory BECKI GARRETT [...] . Payers Date Payer Category Payer Unknown [id number] 2.16.84 0.1.197003.3.579.2.593 1990 Unknown [id number] 2.16.84 0.1.137853.3.579.2.593 1988 Unknown [id number] 2.16.84 0.1.721741.3.579.2.593 1988 Unknown [id number] 2.16.84 0.1.196726.3.579.2.593 1988 Unknown [id number] 2.16.84 0.1.999648.3.579.2.593 1988 Unknown [id number] 2.16.84 0.1.233126.3.579.2.593 1988 Unknown [id number] 2.16.84 0.1.865465.3.579.2.593 1988 Unknown [id number] 2.16.84 0.1.800772.3.579.2.593 1988 Unknown [id number] 2.16.84 0.1.690551.3.579.2.593 1988 Unknown [id number] 2.16.84 0.1.256884.3.579.2.593 1988 Unknown [id number] 2.16.84 0.1.625998.3.579.2.593 1988 Unknown [id number] 2.16.8 40.1.881739.3.579.2.1286 1988 Unknown [id number] 2.16.84 0.1.329512.3.579.2.9 1988 Unknown [id number] 2.16.84 0.1.831876.3.579.2.1259 1988 Unknown [id number] 2.16.84 0.1.602593.3.579.2.1259 1988 Unknown [id number] 2.16.84 0.1.232891.3.579.2.1259 1988 Unknown [id number] 2.16.84 0.1.068989.3.579.2.1259 1988 Unknown [id number] 2.16.84 0.1.390347.3.579.2.1259 1988 Unknown [id number] 2.16.84 0.1.266421.3.579.2.1259 1988 Unknown [id number] 2.16.84 0.1.755421.3.579.2.1259 1988 Unknown [id number] 2.16.84 0.1.467785.3.579.2.1259 1988 Unknown [id number] 2.16.840 .1.677814.3.579.2.1259 1959 Self-pay [id number] 1961 Unknown [id number] Unknown [id number] 2.16.84 0.1.399623.3.579.2.593 Clinical Note 12-09-2022 Note Date & Type [...] Spinal with Duramorph. SURGEON: Becki Mae D.O. OPERATOR ASSISTANT I CEMENTING: DANIELA Koch URINE OUTPUT: Yellow and clear. [...] in the midline and extended laterally using [place] scissors. Two Harriett clamps were placed on [...] the Recovery Room in stable condition. [facility] Summary Purpose Family History No Family History [...] section and content) DATE CREATED AUTHOR 04/24/2020 [facility] DATE CREATED AUTHOR AUTHOR'S ORGANIZ ATION 05/26/2020 [facility] DATE CREATED AUTHOR AUTHOR'S ORGANIZ ATION 08/02/2021 [facility] DATE CREATED AUTHOR AUTHOR'S ORGANIZ ATION 12/24/2022 [facility] DATE CREATED AUTHOR AUTHOR'S ORGANIZ ATION 01/21/2024 [facility] DATE CREATED AUTHOR AUTHOR'S ORGANIZ ATION 03/10/2024 [facility] FOR RECORDS PERTAINING TO PATIENTS WHO ARE [...] BE BASED ON THE PRIMARY CLINICAL RECORDS. [employer] provides no warranty or guarantee of the accuracy or completeness of information in this document.
--- NOTE | 2024-04-05 08:41 | US_ITS ---
[address] [address] Patient Name: VERO ANAYA MRN: [id number] date: 1990 Sex: F Assigned Patient Location: [facility] Current Patient Location: [facility] Accession/Order Number: [id number] Exam Date: 04/05/2024 08:41 Report Date: 04/05/2024 10:34 At the request of: BECKI TUCKER Procedure: US OB cervical length EXAM: US OB placenta, US OB cervical length HISTORY: LOW LYING PLACENTA COMPARISON: 03/12/2024 TECHNIQUE: Grayscale and color ultrasound FINDINGS: position: Cephalic presentation, longitudinal lie Placenta: Posterior, the placental edge is 3.2 cm from the internal os Heart rate: 145 beats minute Cervix: 4.2 cm, tiny amount of fluid in the endocervical canal which is dilated 1 mm. Clinical age: 26 weeks 4 days Clinical FREDDIE: 07/08/2024 US/US OB cervical length IMPRESSION: Closed cervix measuring 4.2 cm The placental edge is 3.2 cm from the internal cervical os Electronically authenticated by: ASHLEE STOVER Date: 04/05/2024 10:34
== END 2024-04-05 08:35 | disposition home or self-care (01) ==
LOC: NOMS 08:34
PROVIDERS: PCP Family Medicine; Visit Provider Obstetrics & Gynecology
DX: O44.40 Low lying placenta NOS or without hemorrhage, unspecified trimester (principal); Z3A.00 Weeks of gestation of pregnancy not specified
CPT/HCPCS: 76815; 76817

== ENCOUNTER 2024-05-07 03:28 | Observation (INO) | payer BC, SELFPAY ==
--- OUTSIDE RECORDS SUMMARY | 2024-05-07 03:31 | XMS_ITS | CCD ---
Author Organization [facility] Care Team Providers Care Booth Manager Name Role Phone JUAN ., DR MARTIN [...] DR NONE LISTED Primary Care Unavaila ble TU ., DR CONNELL Attending Unavailable TU ., DR CONNELL Procedure Practitioner Unavail able REQUEST, DR NONE LISTED Primary Care Unavaila ble TU ., DR CONNELL Admitting Unavailable TU ., DR CONNELL Consulting Unavailable LEN, EZE [...] KARASIK ., DR MARTIN Attending Unavailabl e TU ., DR CONNELL Consulting Unavailable ZIEBER, DR FREDY Copeland Consulting Unavailable SERVICES, [facility] Primary [facility] Unava ilable RALPH CISNEROS Attending Unavailable JOSE LEONARDO Attending Unavailable JOSE LEONARDO Referring Unavailable SERVICES, [facility] Unava ilable Janice Dinero DO Primary Care Provider TU, BECKI Attending Unavailable TU, BECKI Attending Unavailable TU, BECKI Attending Unavailable TU, BECKI Attending Unavailable TU, BECKI Attending Unavailable TU, BECKI Attending Unavailable RITU, YENI Attending Unavailable RITU, YENI Attending Unavailable TU, BECKI Attending Unavailable TU, BECKI Attending Unavailable TU, BECKI Attending Unavailable RITU, YENI Attending Unavailable Allergies Allergy Classification Reported Allergen(s) Allergy Type Date of Onset Reaction(s) Facility Macrolides (antibiotic) (1 source) Azithromycin; Translations: [AZITHROMYCIN] Drug Allergy 7 [facility] (1 source) Azithromycin Drug Allergy 4 [facility] Repository (3 sources) Azithromycin Drug Allergy 7 Hives, Itching [facility] Work Phone: Medications Current Medications Medication Drug Class(es) Dates Sig (Normalized) Sig (Original) ondansetron 4 mg disintegrating oral tablet (8 sources) Serotonin-3 Receptor Antagonist Start: 04-05-2024 take 1 tablet by mouth every six hours as needed for nausea and vomiting and nausea and nausea ondansetron (Zofran) 4 MG tablet Indications: Nausea Take 1 tablet (4 mg) by mouth every 6 (six) hours if needed for nausea or vomiting for up to 120 doses Take 1 tablet by mouth every 6 hours as needed for nausea. 30 tablet 3 04/05/2024 Active Start: 05-17-2022 End: 06-01-2024 take 1 tablet by mouth every six hours for nausea ondansetron ODT (Zofran-ODT) 4 MG disintegrating tablet Indications: Nausea and vomiting, unspecified vomiting type Take 1 tablet (4 mg) by mouth every 6 (six) hours if needed for nausea or vomiting 30 tablet 05/02/2024 06/01/2024 Active polysaccharide iron complex 391 mg oral capsule (3 sources) Start: 04-05-2024 End: 05-05-2024 take 1 capsule by mouth once daily iron polysaccharides (ProFe) 391.3 (180 Fe) MG capsule Indications: 26 weeks gestation of , Chronic fatigue Take 1 capsule (391.3 mg) by mouth Daily 30 capsule 6 04/05/2024 05/05/2024 Active Problems Active Problems Problem Classification Problem Date Documented Da te Episodic/Chronic Adjustment disorders (3 sources) Grief finding; Translations: [Adjustment disorder with depressed mood] Onset: 10-06-2023 10-06-2023 Chronic Anxiety disorders (6 sources) Mixed anxiety and depressive disorder; Translations: [Other specified anxiety disorders] Onset: 01-20-2023 08-08-2023 Chronic Conditions associated with dizziness or vertigo (3 sources) Dizziness; Translations: [Dizziness and giddiness] Onset: 03-15-2024 03-15-2024 Episodic Diabetes mellitus without complication (1 source) Other abnormal glucose; Translations: [OTHER ABNORMAL GLUCOSE] Onset: 10-31-2022 Episodic Diabetes or abnormal glucose tolerance complicating ; childbirth; or the puerperium (4 sources) Abnormal glucose complicating ; Translations: [ABNORMAL GLUCOSE COMP ] Onset: 10-26-2022 Episodic E Codes: Fall (1 source) Fall Onset: 01-20-2024 Early or threatened labor (7 sources) False labor before 37 completed weeks of gestation, third trimester; Translations: [Irregular uterine contractions] Onset: 10-27-2022 Episodic Fluid and electrolyte disorders (3 sources) Dehydration; Translations: [Dehydration] Onset: 03-15-2024 03-15-2024 Episodic Gastritis and duodenitis (3 sources) Chronic gastritis; Translations: [Unspecified chronic gastritis without bleeding] Onset: 01-20-2023 01-20-2023 Chronic Headache; including migraine (3 sources) Migraine; Translations: [Migraine, unspecified, not intractable, without status migrainosus] Onset: 03-15-2024 03-15-2024 Chronic Hemorrhage during ; abruptio placenta; placenta previa (3 sources) Low lying placenta; Translations: [Low lying placenta NOS or without hemorrhage, unspecified trimester] Onset: 03-15-2024 03-15-2024 Episodic Malaise and fatigue (3 sources) Fatigue; Translations: [Chronic fatigue, unspecified] Onset: 04-05-2024 04-05-2024 Chronic Menstrual disorders (3 sources) Irregular periods; Translations: [Irregular menstruation, unspecified] Onset: 01-20-2023 01-20-2023 Chronic Mood disorders (7 sources) Bipolar disorder, unspecified; Translations: [Bipolar I disorder] Onset: 12-14-2022 01-20-2023 Chronic Nausea and vomiting (3 sources) Nausea; Translations: [Nausea and vomiting] Onset: 11-03-2022 05-02-2024 Episodic Open wounds of head; neck; and trunk (1 source) Laceration without foreign body of right ear, initial encounter; Translations: [Laceration without foreign body of right ear, initial encounter] Onset: 01-20-2024 Episodic Other aftercare (1 source) Other coach (current) drug therapy; Translations: [OTH DOPE MAINTENANCE WORKER CURRENT DRUG THERAPY] Onset: 12-14-2022 Episodic Other [...] SYND W/O DIARRHEA] Onset: 12-14-2022 Chronic Other gastrointestinal disorders (3 sources) Irritable bowel syndrome with diarrhea; Translations: [Irritable bowel syndrome with diarrhea] Onset: 01-20-2023 01-20-2023 Chronic Other liver diseases (1 source) Fatty (change of) liver, not elsewhere classified; Translations: [FATTY CHANGE LIVER NEC] Onset: 12-14-2022 Chronic Other liver diseases (3 sources) Steatosis of liver; Translations: [Fatty (change of) liver, not elsewhere classified] Onset: 01-20-2023 01-20-2023 Chronic Other and delivery including normal (16 sources) Single live ; Translations: [Encounter for [...] WEEKS GESTATION OF ] Onset: 11-03-2022 Episodic Residual codes; unclassified (2 sources) Gestation period, 30 weeks; Translations: [30 weeks gestation of ] 05-02-2024 Episodic Screening and history of mental health and substance abuse codes (1 source) Personal history of nicotine dependence; Translations: [PERSONAL HISTORY OF NICOTINE DEPEND] Onset: 12-14-2022 Episodic Substance-related disorders (3 sources) Drug use complicating childbirth; Translations: [Cannabis use, unspecified, uncomplicated] Onset: 11-03-2022 Episodic Syncope (4 sources) Syncope and collapse; Translations: [Syncope] Onset: 01-20-2024 03-15-2024 Episodic Unclassified (1 source) EMS Onset: 01-20-2024 [...] Test Name Value Interpretation Reference Range Facility Urinalysis macro (dipstick) panel (U)on 05-02-2024 Bilirubin, UA Negative Negative - 4(70) +++ mg/dL [facility] Blood, UA Negative Negative - 50 Nelson/mcL [facility] Clarity, UA Clear [facility] Color, UA Yellow [facility] Glucose, UA Negative Negative - 2000(110) ++++ mg/dL [facility] Interpretation and review of laboratory results Abnormal [facility] Ketones, UA Positive Negative - 160(16) ++++ mg/dL [facility] Leukocytes, UA Negative Negative - 500+++ Antonio/mcL [facility] Nitrite, UA Negative Negative - Positive [facility] pH, UA 6 5 - 9 [facility] Protein, UA Positive Negative - 1999(20) ++++ mg/dL [facility] Spec Grav, UA 1.025 1 - 1.03 [facility] Urobilinogen, UA 1.0 0.2 - 12 mg/dL [facility] CBC AND AUTO DIFFon 01-20-20 24 ABSOLUTE BASOPHIL 0.1 X10E9/L Normal 0.0-0.2 [facility] Comment on above: Performed By: #### Melia NICOLE CMP, 92586-8 #### [facility] ([id number]) [address] [place] [address] 41737 ABSOLUTE NEUTROPHIL 8.1 X10E9/L High 1.5-6.6 [facility] Comment on above: Performed By: #### Melia NICOLE CMP, 76507-0 #### [facility] ([id number]) [address] [place] [address] 68508 Basophils/100 WBC (Bld) 0.5 % Normal [facility] Comment on above: Performed By: #### Melia NICOLE CMP, 15673-0 #### [facility] ([id number]) [address] [place] [address] 66570 Eosinophils (Bld) [#/Vol] 0.2 10*3/uL Normal 0.0-0.4 [facility] Comment on above: Performed By: #### Melia NICOLE CMP, 67221-8 #### [facility] ([id number]) [address] [place] [address] 87786 Eosinophils/100 WBC (Bld) 1.4 % Normal [facility] Comment on above: Performed By: #### Melia NICOLE CMP, 37573-9 #### [facility] ([id number]) [address] [place] [address] 11619 Erythrocyte distribution width (RBC) [Ratio] 14.4 % Normal 11.5-15.0 [facility] Comment on above: Performed By: #### Melia NICOLE CMP, 80475-2 #### [facility] ([id number]) [address] [place] [address] 62062 Hematocrit (Bld) [Volume fraction] 32.4 % Low 35-47 [facility] Comment on above: Performed By: #### Melia NICOLE CMP, 71965-0 #### [facility] ([id number]) [address] [place] [address] 26298 Hemoglobin (Bld) [Mass/Vol] 10.9 g/dL Low 11.7-15.5 [facility] Comment on above: Performed By: #### Melia NICOLE CMP, 72108-8 #### [facility] ([id number]) [address] [place] [address] 99684 Lymphocytes (Bld) [#/Vol] 2.0 10*3/uL Normal 1.0-3.5 [facility] Comment on above: Performed By: #### Melia NICOLE CMP, 47853-6 #### [facility] ([id number]) [address] [place] [address] 86230 Lymphocytes/100 WBC (Bld) 17.8 % Normal [facility] Comment on above: Performed By: #### Melia NICOLE CMP, 52192-0 #### [facility] ([id number]) [address] [place] [address] 27894 MCH (RBC) [Entitic mass] 28.4 pg Normal 27-34 [facility] Comment on above: Performed By: #### Melia NICOLE CMP, 80202-4 #### [facility] ([id number]) [address] [place] [address] 40848 MCHC (RBC) [Mass/Vol] 33.5 g/dL Normal 32-36 [facility] Comment on above: Performed By: #### Melia NICOLE CMP, 39921-5 #### [facility] ([id number]) [address] [place] [address] 08256 MCV (RBC) [Entitic vol] 85 fL Normal 80-100 [facility] Comment on above: Performed By: #### Melia NICOLE CMP, 45591-1 #### [facility] ([id number]) [address] [place] [address] 33029 Monocytes (Bld) [#/Vol] 0.8 10*3/uL Normal 0-0.9 [facility] Comment on above: Performed By: #### Melia NICOLE CMP, 72220-7 #### [facility] ([id number]) [address] [place] [address] 87429 Monocytes/100 WBC (Bld) 7.1 % Normal [facility] Comment on above: Performed By: #### Melia NICOLE [facility], 91864-5 #### [facility] ([id number]) [address] [place] [address] 23413 Neutrophils/100 WBC (Bld) 73.2 % Normal [facility] Comment on above: Performed By: #### Melia NICOLE [facility], 00297-4 #### [facility] ([id number]) [address] [place] [address] 50096 Platelet mean volume (Bld) [Entitic vol] 7.5 fL Normal 7-12 [facility] Comment on above: Performed By: #### Melia NICOLE [facility], 96050-4 #### [facility] ([id number]) [address] [place] [address] 37885 Platelets (Bld) [#/Vol] 300 10*3/uL Normal 150-450 [facility] Comment on above: Performed By: #### Melia NICOLE CMP, 90531-8 #### [facility] ([id number]) [address] [place] [address] 55269 RBC COUNT 3.83 X10E12/L Normal 3.80-5.20 [facility] Comment on above: Performed By: #### C BCA, CMP, 14157-8 #### [facility] ([id number]) [address] [place] [address] 92601 WBC (Bld) [#/Vol] 11.1 10*3/uL High 4.0-11.0 [facility] Comment on above: Performed By: #### C BCA, CMP, 89984-5 #### [facility] ([id number]) [address] [place] [address] 71439 COMPREHENSIVE METABOLIC PANE Yassine 01-20-2024 Albumin [Mass/Vol] 3.2 g/dL Normal 3.2-5.3 [facility] Comment on above: Performed By: #### C BCA, CMP, 56709-4 #### [facility] ([id number]) [address] [place] [address] 04199 ALP [Catalytic activity/Vol] 49 U/L Normal 39-130 [facility] Comment on above: Performed By: #### C BCA, CMP, 33804-0 #### [facility] ([id number]) [address] [place] [address] 90857 ALT [Catalytic activity/Vol] 16 U/L Normal 0-31 [facility] Comment on above: Performed By: #### C BCA, CMP, 06455-0 #### [facility] ([id number]) [address] [place] [address] 08368 Anion gap [Moles/Vol] 7 mmol/L Normal 5-15 [facility] Comment on above: Performed By: #### C BCA, CMP, 63800-0 #### [facility] ([id number]) [address] [place] [address] 16587 AST [Catalytic activity/Vol] 20 U/L Normal 0-41 [facility] Comment on above: Performed By: #### C MELYSSA NICOLE, 00033-9 #### [facility] ([id number]) [address] [place] [address] 03390 Bilirubin [Mass/Vol] 0.3 mg/dL Normal 0.3-1.2 [facility] Comment on above: Performed By: #### C MELYSSA NICOLE, 53815-9 #### [facility] ([id number]) [address] [place] [address] 52966 Calcium [Mass/Vol] 8.6 mg/dL Normal 8.5-10.5 [facility] Comment on above: Performed By: #### C MELYSSA NICOLE, 30593-3 #### [facility] ([id number]) [address] [place] [address] 41022 Chloride [Moles/Vol] 99 mmol/L Normal 98-109 [facility] Comment on above: Performed By: #### Melia NICOLE CMP, 93956-3 #### [facility] ([id number]) [address] [place] [address] 96895 CO2 [Moles/Vol] 22 mmol/L Normal 22-32 [facility] Comment on above: Performed By: #### Melia NICOLE CMP, 16477-1 #### [facility] ([id number]) [address] [place] [address] 52326 Creatinine [Mass/Vol] 0.56 mg/dL Normal 0.40-1.00 [facility] Comment on above: Result Comment: METH OD TRACEABLE TO IDMS STANDARD Performed By: #### C MELYSSA NICOLE, 74164-4 #### [facility] ([id number]) [address] [place] [address] 60711 eGFR (CKD-EPI) NON-RACE DEPENDENT >90 Normal >59 [facility] Comment on above: Result Comment: Reported eGFR is based on the CKD-EPI 2020 equation that does not use a race coefficient. Performed By: #### C MELYSSA NICOLE, 77065-3 #### [facility] ([id number]) [address] [place] [address] 74981 Glucose [Mass/Vol] 102 mg/dL High 65-99 [facility] Comment on above: Performed By: #### Melia NICOLE CMP, 80406-6 #### [facility] ([id number]) [address] [place] [address] 39847 Potassium [Moles/Vol] 3.7 mmol/L Normal 3.5-5.0 [facility] Comment on above: Performed By: #### C MELYSSA NICOLE, 92103-6 #### [facility] ([id number]) [address] [place] [address] 84771 Protein [Mass/Vol] 7.2 g/dL Normal 6.0-8.0 [facility] Comment on above: Performed By: #### Melia NICOLE CMP, 33118-8 #### [facility] ([id number]) [address] [place] [address] 29127 Sodium [Moles/Vol] 128 mmol/L Low 134-146 [facility] Comment on above: Performed By: #### Melia NICOLE CMP, 79149-4 #### [facility] ([id number]) [address] [place] [address] 50292 Urea nitrogen [Mass/Vol] 9 mg/dL Normal 5-23 [facility] Comment on above: Performed By: #### Melia NICOLE CMP, 73615-9 #### [facility] ([id number]) [address] [place] [address] BRAIN WO CONTon 4 CT BRAIN WO CONT CT BRAIN WO [...] Mckinley MD on 01/20/2024 2:56 PM Normal [facility] CT CERVICAL SPINE WO CONTon 01-20-2024 [...] Corrales MD on 01/20/2024 2:52 PM Normal [facility] Troponin I.cardiac High sens itivity method [Mass/Vol]on 01-20-2024 1 HOUR TROP I, HIGH SENSITIVITY <2 Normal <16 [facility] Comment on above: Performed By: #### 8 9579-7 #### [facility] ([id number]) [address] [place] [address] 82782 TROPONIN I, HIGH SENSITIVITY <2 Normal <16 [facility] Comment on above: Performed By: #### C BCA, CMP, 00815-1 #### [facility] ([id number]) [address] [place] [address] 98201 CANNABINOID (THC) CONFIRMATI ON, URINEon 12-15-2022 Cannabinoid Positive Abnormal [facility] Comment on above: Performed By: #### C BC #### [facility] [address] [place] [address] Dr. Isi Summers THC GC/MS Conf >750 Normal Cutoff=10 [facility] Comment on above: Performed By: #### C BC #### [facility] [address] [place] [address] Dr. Isi Forbes CBC AUTO DIFFon 12-10-2022 BASO # 0.0 103/ul Normal 0.0-0.1 [facility] Comment on above: Performed By: #### G TT3P #### [facility] [address] [place] [address] Dr. Isi Forbes Basophils/100 WBC (Bld) 0.3 % Normal 0.2-2.0 [facility] Comment on above: Performed By: #### G TT3P #### [facility] [address] [place] [address] Dr. Isi Forbes EO # 0.1 103/ul Normal 0.0-0.7 [facility] Comment on above: Performed By: #### G TT3P #### [facility] [address] [place] [address] Dr. Isi Forbes Eosinophils/100 WBC (Bld) 0.5 % Critically low 0.9-7.0 [facility] Comment on above: Performed By: #### G TT3P #### [facility] [address] [place] [address] Dr. Isi Forbes Erythrocyte distribution width (RBC) [Ratio] 13.8 % Normal 11.0-15.0 [facility] Comment on above: Performed By: #### G TT3P #### [facility] [address] [place] [address] Dr. Isi Forbes Hematocrit (Bld) [Volume fraction] 24.1 % Critically low 36.0-48.0 [facility] Comment on above: Performed By: #### G TT3P #### [facility] [address] [place] [address] Dr. Isi Forbes Hemoglobin (Bld) [Mass/Vol] 7.7 g/dL Critically low 12.0-16.0 [facility] Comment on above: Performed By: #### G TT3P #### [facility] [address] [place] [address] Dr. Isi Forbes IG # 0.11 10e3/ul Critically high 0.00-0.03 [facility] Comment on above: Performed By: #### G TT3P #### [facility] [address] [place] [address] Dr. Isi Forbes IG % 0.9 % Critically high 0.0-0.5 [facility] Comment on above: Performed By: #### G TT3P #### [facility] [address] [place] [address] Dr. Isi Forbes LYMPH # 2.0 103/ul Normal 1.2-3.8 [facility] Comment on above: Performed By: #### G TT3P #### [facility] [address] [place] [address] Dr. Isi Forbes Lymphocytes/100 WBC (Bld) 16.9 % Critically low 20.5-60.0 [facility] Comment on above: Performed By: #### G TT3P #### [facility] [address] [place] [address] Dr. Isi Forbes MANUAL DIFF REQ NO Normal [facility] Comment on above: Performed By: #### G TT3P #### [facility] [address] [place] [address] Dr. Isi Forbes MCH (RBC) [Entitic mass] 27.4 pg Normal 26.7-34.0 [facility] Comment on above: Performed By: #### G TT3P #### [facility] [address] [place] [address] Dr. Isi Forbes MCHC (RBC) [Mass/Vol] 32.0 g/dL Normal 29.9-35.2 [facility] Comment on above: Performed By: #### G TT3P #### [facility] [address] [place] [address] Dr. Isi Forbes MCV (RBC) [Entitic vol] 85.8 fL Normal 81.0-99.0 [facility] Comment on above: Performed By: #### G TT3P #### [facility] [address] [place] [address] Dr. Isi Forbes MONO # 1.5 103/ul Critically high 0.3-0.[address] [facility] Comment on above: Performed By: #### G TT3P #### [facility] [address] [place] [address] Dr. Isi Forbes Monocytes/100 WBC (Bld) 12.2 % Critically high 1.7-12.0 [facility] Comment on above: Performed By: #### G TT3P #### [facility] [address] [place] [address] Dr. Isi Forbes NEUT # 8.3 103/ul Critically high 1.4-6.[address] [facility] Comment on above: Performed By: #### G TT3P #### [facility] [address] [place] [address] Dr. Isi Forbes Neutrophils/100 WBC (Bld) 69.2 % Normal 43.0-75.0 [facility] Comment on above: Performed By: #### G TT3P #### [facility] [address] [place] [address] Dr. Isi Forbes Platelet mean volume (Bld) [Entitic vol] 9.6 fL Normal 9.5-13.5 [facility] Comment on above: Performed By: #### G TT3P #### [facility] [address] [place] [address] Dr. Isi Forbes PLT 205 103/ul Normal 150-450 [facility] Comment on above: Performed By: #### G TT3P #### [facility] [address] [place] [address] Dr. Isi Forbes RBC 2.81 106/ul Critically low 4.20-5.[address] [facility] Comment on above: Performed By: #### G TT3P #### [facility] [address] [place] [address] Dr. Isi Forbes WBC 12.0 103/ul Critically high 4.0-11.0 [facility] Comment on above: Performed By: #### G TT3P #### [facility] [address] [place] [address] Dr. Isi Forbes CBC AUTO DIFFon 12-09-2022 BASO # 0.1 103/ul Normal 0.0-0.1 [facility] Comment on above: Performed By: #### G TT3P #### [facility] [address] [place] [address] Dr. Isi Forbes Basophils/100 WBC (Bld) 0.5 % Normal 0.2-2.0 [facility] Comment on above: Performed By: #### G TT3P #### [facility] [address] [place] [address] Dr. Isi Forbes EO # 0.1 103/ul Normal 0.0-0.7 [facility] Comment on above: Performed By: #### G TT3P #### [facility] [address] [place] [address] Dr. Isi Forbes Eosinophils/100 WBC (Bld) 0.4 % Critically low 0.9-7.0 [facility] Comment on above: Performed By: #### G TT3P #### [facility] [address] [place] [address] Dr. Isi Forbes Erythrocyte distribution width (RBC) [Ratio] 13.7 % Normal 11.0-15.0 [facility] Comment on above: Performed By: #### G TT3P #### [facility] [address] [place] [address] Dr. Isi Forbes Hematocrit (Bld) [Volume fraction] 31.9 % Critically low 36.0-48.0 [facility] Comment on above: Performed By: #### G TT3P #### [facility] [address] [place] [address] Dr. Isi Forbes Hemoglobin (Bld) [Mass/Vol] 10.5 g/dL Critically low 12.0-16.0 [facility] Comment on above: Performed By: #### G TT3P #### [facility] [address] [address] [address] Isi Forbes IG # 0.13 10e3/ul Critically high 0.00-0.03 [facility] Comment on above: Performed By: #### G TT3P #### [facility] [address] [address] [address] Isi Forbes IG % 1.2 % Critically high 0.0-0.[address] [facility] Comment on above: Performed By: #### G TT3P #### [facility] [address] [address] [address] Isi Forbes LYMPH # 2.0 103/ul Normal 1.2-3.8 [facility] Comment on above: Performed By: #### G TT3P #### [facility] [address] [place] [address] Dr. Isi Forbes Lymphocytes/100 WBC (Bld) 18.0 % Critically low 20.5-60.0 [facility] Comment on above: Performed By: #### G TT3P #### [facility] [address] [place] [address] Dr. Isi Forbes MANUAL DIFF REQ NO Normal [facility] Comment on above: Performed By: #### G TT3P #### [facility] [address] [place] [address] Dr. Isi Forbes MCH (RBC) [Entitic mass] 27.6 pg Normal 26.7-34.0 [facility] Comment on above: Performed By: #### G TT3P #### [facility] [address] [address] [address] Isi Forbes MCHC (RBC) [Mass/Vol] 32.9 g/dL Normal 29.9-35.2 [facility] Comment on above: Performed By: #### G TT3P #### [facility] [address] [place] [address] Dr. Isi Forbes MCV (RBC) [Entitic vol] 83.9 fL Normal 81.0-99.0 [facility] Comment on above: Performed By: #### G TT3P #### [facility] [address] [address] [address] Isi Forbes MONO # 1.0 103/ul Critically high 0.3-0.[address] [facility] Comment on above: Performed By: #### G TT3P #### [facility] [address] [address] [address] Isi Forbes Monocytes/100 WBC (Bld) 8.9 % Normal 1.7-12.0 [facility] Comment on above: Performed By: #### G TT3P #### [facility] [address] [address] [address] Isi Forbes NEUT # 7.9 103/ul Critically high 1.4-6.[address] [facility] Comment on above: Performed By: #### G TT3P #### [facility] [address] [place] [address] Dr. Isi Forbes Neutrophils/100 WBC (Bld) 71.0 % Normal 43.0-75.0 [facility] Comment on above: Performed By: #### G TT3P #### [facility] [address] [place] [address] Dr. Isi Forbes Platelet mean volume (Bld) [Entitic vol] 10.0 fL Normal 9.5-13.5 [facility] Comment on above: Performed By: #### G TT3P #### [facility] [address] [place] [address] Dr. Isi Forbes PLT 264 103/ul Normal 150-450 [facility] Comment on above: Performed By: #### G TT3P #### [facility] [address] [place] [address] Dr. Isi Forbes RBC 3.80 106/ul Critically low 4.20-5.[address] [facility] Comment on above: Performed By: #### G TT3P #### [facility] [address] [place] [address] Dr. Isi Forbes WBC 11.1 103/ul Critically high 4.0-11.0 [facility] Comment on above: Performed By: #### G TT3P #### [facility] [address] [place] [address] Dr. Isi Forbes DRUG SCREEN RAPID (URINE)on 12-09-2022 AMP Negative Normal NEGATIVE [facility] Comment on above: Performed By: #### G TT3P #### [facility] [address] [place] [address] Dr. Isi Forbes BAR Negative Normal NEGATIVE [facility] Comment on above: Performed By: #### G TT3P #### [facility] [address] [place] [address] Dr. Isi Forbes BUP Negative Normal NEGATIVE [facility] Comment on above: Performed By: #### G TT3P #### [facility] [address] [place] [address] Dr. Isi Forbes BZO Negative Normal NEGATIVE [facility] Comment on above: Performed By: #### G TT3P #### [facility] [address] [place] [address] Dr. Isi Forbes BEATA Negative Normal NEGATIVE [facility] Comment on above: Performed By: #### G TT3P #### [facility] [address] [place] [address] Dr. Isi Forbes CUT-OFFS SEE BELOW Normal [facility] Comment on above: [...] ng/mL Performed By: #### G TT3P #### [facility] [address] [place] [address] Dr. Isi Forbes DRUG CUT HEADER DRUG CLASS TEST SYSTEM CUT-OFF CONCENTRATIONS ARE FOLLOWS: Normal [facility] Comment on above: Performed By: #### G TT3P #### [facility] [address] [address] [address] Isi Forbes mAMP Negative Normal NEGATIVE [facility] Comment on above: Performed By: #### G TT3P #### [facility] [address] [place] [address] Dr. Isi Forbes MTD Negative Normal NEGATIVE [facility] Comment on above: Performed By: #### G TT3P #### [facility] [address] [place] [address] Dr. Isi Forbes OPI Negative Normal NEGATIVE [facility] Comment on above: Performed By: #### G TT3P #### [facility] [address] [address] [address] Isi Forbes OXY Negative Normal NEGATIVE [facility] Comment on above: Performed By: #### G TT3P #### [facility] [address] [place] [address] Dr. Isi Forbes PCP Negative Normal NEGATIVE [facility] Comment on above: Performed By: #### G TT3P #### [facility] [address] [place] [address] Dr. Isi Forbes PPX Negative Normal NEGATIVE [facility] Comment on above: Performed By: #### G TT3P #### [facility] [address] [place] [address] Dr. Isi Forbes TCA Negative Normal NEGATIVE [facility] Comment on above: Performed By: #### G TT3P #### [facility] [address] [place] [address] Dr. Isi Forbes THC Positive Abnormal NEGATIVE [facility] Comment on above: Performed By: #### G TT3P #### [facility] [address] [place] [address] Dr. Isi Forbes TYPE AND SCREENon 12-09-2022 TYPE AND SCREEN Negative Normal [facility] Comment on above: Performed By: #### R PRQ #### [facility] [address] [place] [address] Dr. Isi Forbes UA (CLEAN/CATCH) CASTING AND PASTING SUPERVISOR/MICRO I F IND.on 12-09-2022 Bilirubin Ql (U) Negative Normal NEGATIVE [facility] Comment on above: Performed By: #### C BC #### [facility] [address] [place] [address] Dr. Isi Forbes Clarity (U) CLEAR Normal CLEAR [facility] Comment on above: Performed By: #### C BC #### [facility] [address] [place] [address] Dr. Isi Forbes Color (U) YELLOW Normal YELLOW [facility] Comment on above: Performed By: #### C BC #### [facility] [address] [place] [address] Dr. Isi Forbes Glucose Ql (U) Negative Normal NEGATIVE [facility] Comment on above: Performed By: #### C BC #### [facility] [address] [place] [address] Dr. Isi Forbes Hemoglobin Ql (U) Negative Normal NEGATIVE [facility] Comment on above: Performed By: #### C BC #### [facility] [address] [place] [address] Dr. Isi Forbes Ketones Ql (U) TRACE Abnormal NEGATIVE [facility] Comment on above: Performed By: #### C BC #### [facility] [address] [place] [address] Dr. Isi Forbes LEUKOCYTES Negative Normal NEGATIVE [facility] Comment on above: Performed By: #### C BC #### [facility] [address] [place] [address] Dr. Isi Forbes Nitrite Ql (U) Negative Normal NEGATIVE [facility] Comment on above: Performed By: #### C BC #### [facility] [address] [place] [address] Dr. Isi Forbes pH (U) 6.5 [pH] Normal 5-9 [facility] Comment on above: Performed By: #### C BC #### [facility] [address] [place] [address] Dr. Isi Forbes SPEC GRAVITY 1.025 Normal 1.005-<=1.[address] [facility] Comment on above: Performed By: #### C BC #### [facility] [address] [place] [address] Dr. Isi Forbes UA PROTEIN TRACE Normal NEGATIVE/ TRACE [facility] Comment on above: Performed By: #### C BC #### [facility] [address] [place] [address] Dr. Isi Forbes UR MICRO IND NOT INDICATED Normal [facility] Comment on above: Performed By: #### C BC #### [facility] [address] [place] [address] Dr. Isi Forbes Urobilinogen Qn (U) 0.2 {Barb'U}/dL Normal 0.2 - 1. 0 [facility] Comment on above: Performed By: #### C BC #### [facility] [address] [place] [address] Dr. Isi Forbes GROUP B STREP CULTUREon 11-15 S. agalactiae Ag Ql (Unsp spec) Culture Observations: NEGATIVE FOR GROUP B STREPTOCOCCUS. Normal [facility] Comment on above: Performed By: #### R PRQ #### [facility] [address] [place] [address] Dr. Isi Forbes US PREG BIOPHY W [...] FREDY DICK Date: 2022-10-31 22:08 Normal [facility] US PREG GROWTHon 11-01-2022 US PREG [...] FREDY DICK Date: 2022-10-31 22:07 Normal [facility] CBC AUTO DIFFon 10-28-2022 BASO # 0.0 103/ul Normal 0.0-0.1 [facility] Comment on above: Performed By: #### G TT3P #### [facility] [address] [address] [address] Isi Forbes Basophils/100 WBC (Bld) 0.1 % Critically low 0.2-2.0 [facility] Comment on above: Performed By: #### G TT3P #### [facility] [address] [address] [address] Isi Forbes EO # 0.0 103/ul Normal 0.0-0.7 [facility] Comment on above: Performed By: #### G TT3P #### [facility] [address] [address] [address] Isi Forbes Eosinophils/100 WBC (Bld) 0.1 % Critically low 0.9-7.0 [facility] Comment on above: Performed By: #### G TT3P #### [facility] [address] [address] [address] Isi Forbes Erythrocyte distribution width (RBC) [Ratio] 12.7 % Normal 11.0-15.0 [facility] Comment on above: Performed By: #### G TT3P #### [facility] [address] [address] [address] Isi Forbes Hematocrit (Bld) [Volume fraction] 29.1 % Critically low 36.0-48.0 [facility] Comment on above: Performed By: #### G TT3P #### [facility] [address] [place] [address] Dr. Isi Forbes Hemoglobin (Bld) [Mass/Vol] 9.4 g/dL Critically low 12.0-16.0 [facility] Comment on above: Performed By: #### G TT3P #### [facility] [address] [place] [address] Dr. Isi Forbes IG # 0.20 10e3/ul Critically high 0.00-0.03 [facility] Comment on above: Performed By: #### G TT3P #### [facility] [address] [place] [address] Dr. Isi Forbes IG % 1.4 % Critically high 0.0-0.5 [facility] Comment on above: Performed By: #### G TT3P #### [facility] [address] [place] [address] Dr. Isi Forbes LYMPH # 1.9 103/ul Normal 1.2-3.8 [facility] Comment on above: Performed By: #### G TT3P #### [facility] [address] [place] [address] Dr. Isi Forbes Lymphocytes/100 WBC (Bld) 13.5 % Critically low 20.5-60.0 [facility] Comment on above: Performed By: #### G TT3P #### [facility] [address] [place] [address] Dr. Isi Forbes MANUAL DIFF REQ NO Normal [facility] Comment on above: Performed By: #### G TT3P #### [facility] [address] [place] [address] Dr. Isi Forbes MCH (RBC) [Entitic mass] 28.2 pg Normal 26.7-34.0 [facility] Comment on above: Performed By: #### G TT3P #### [facility] [address] [place] [address] Dr. Isi Forbes MCHC (RBC) [Mass/Vol] 32.3 g/dL Normal 29.9-35.2 [facility] Comment on above: Performed By: #### G TT3P #### [facility] [address] [place] [address] Dr. Isi Forbes MCV (RBC) [Entitic vol] 87.4 fL Normal 81.0-99.0 [facility] Comment on above: Performed By: #### G TT3P #### [facility] [address] [place] [address] Dr. Isi Forbes MONO # 0.8 103/ul Normal 0.3-0.8 [facility] Comment on above: Performed By: #### G TT3P #### [facility] [address] [place] [address] Dr. Isi Forbes Monocytes/100 WBC (Bld) 5.9 % Normal 1.7-12.0 [facility] Comment on above: Performed By: #### G TT3P #### [facility] [address] [place] [address] Dr. Isi Forbes NEUT # 10.9 103/ul Critically high 1.4-6.5 [facility] Comment on above: Performed By: #### G TT3P #### [facility] [address] [place] [address] Dr. Isi Forbes Neutrophils/100 WBC (Bld) 79.0 % Critically high 43.0-75.0 [facility] Comment on above: Performed By: #### G TT3P #### [facility] [address] [place] [address] Dr. Isi Forbes Platelet mean volume (Bld) [Entitic vol] 9.3 fL Critically low 9.5-13.5 [facility] Comment on above: Performed By: #### G TT3P #### [facility] [address] [place] [address] Dr. Isi Forbes PLT 265 103/ul Normal 150-450 [facility] Comment on above: Performed By: #### G TT3P #### [facility] [address] [place] [address] Dr. Isi Forbes RBC 3.33 106/ul Critically low 4.20-5.40 [facility] Comment on above: Performed By: #### G TT3P #### [facility] [address] [place] [address] Dr. Isi Forbes WBC 13.8 103/ul Critically high 4.0-11.0 [facility] Comment on above: Performed By: #### G TT3P #### [facility] [address] [place] [address] Dr. Isi Forbes CBC AUTO DIFFon 10-27-2022 BASO # 0.0 103/ul Normal 0.0-0.1 [facility] Comment on above: Performed By: #### C BC #### [facility] [address] [place] [address] Dr. Isi Forbes Basophils/100 WBC (Bld) 0.2 % Normal 0.2-2.0 [facility] Comment on above: Performed By: #### C BC #### [facility] [address] [place] [address] Dr. Isi Forbes EO # 0.0 103/ul Normal 0.0-0.7 [facility] Comment on above: Performed By: #### C BC #### [facility] [address] [place] [address] Dr. Isi Forbes Eosinophils/100 WBC (Bld) 0.1 % Critically low 0.9-7.0 [facility] Comment on above: Performed By: #### C BC #### [facility] [address] [place] [address] Dr. Isi Forbes Erythrocyte distribution width (RBC) [Ratio] 12.7 % Normal 11.0-15.0 [facility] Comment on above: Performed By: #### C BC #### [facility] [address] [place] [address] Dr. Isi Forbes Hematocrit (Bld) [Volume fraction] 30.4 % Critically low 36.0-48.0 [facility] Comment on above: Performed By: #### C BC #### [facility] [address] [place] [address] Dr. Isi Forbes Hemoglobin (Bld) [Mass/Vol] 10.4 g/dL Critically low 12.0-16.0 [facility] Comment on above: Performed By: #### C BC #### [facility] [address] [place] [address] Dr. Isi Forbes IG # 0.19 10e3/ul Critically high 0.00-0.03 [facility] Comment on above: Performed By: #### C BC #### [facility] [address] [address] [address] Isi Forbes IG % 1.2 % Critically high 0.0-0.5 [facility] Comment on above: Performed By: #### C BC #### [facility] [address] [place] [address] Dr. Isi Forbes LYMPH # 1.1 103/ul Critically low 1.2-3.8 [facility] Comment on above: Performed By: #### C BC #### [facility] [address] [place] [address] Dr. Isi Forbes Lymphocytes/100 WBC (Bld) 6.7 % Critically low 20.5-60.0 [facility] Comment on above: Performed By: #### C BC #### [facility] [address] [place] [address] Dr. Isi Forbes MANUAL DIFF REQ NO Normal [facility] Comment on above: Performed By: #### C BC #### [facility] [address] [place] [address] Dr. Isi Forbes MCH (RBC) [Entitic mass] 29.5 pg Normal 26.7-34.0 [facility] Comment on above: Performed By: #### C BC #### [facility] [address] [place] [address] Dr. Isi Forbes MCHC (RBC) [Mass/Vol] 34.2 g/dL Normal 29.9-35.2 [facility] Comment on above: Performed By: #### C BC #### [facility] [address] [place] [address] Dr. Isi Forbes MCV (RBC) [Entitic vol] 86.1 fL Normal 81.0-99.0 [facility] Comment on above: Performed By: #### C BC #### [facility] [address] [place] [address] Dr. Isi Forbes MONO # 0.3 103/ul Normal 0.3-0.8 [facility] Comment on above: Performed By: #### C BC #### [facility] [address] [place] [address] Dr. Isi Forbes Monocytes/100 WBC (Bld) 1.7 % Normal 1.7-12.0 [facility] Comment on above: Performed By: #### C BC #### [facility] [address] [place] [address] Dr. Isi Forbes NEUT # 14.1 103/ul Critically high 1.4-6.5 [facility] Comment on above: Performed By: #### C BC #### [facility] [address] [place] [address] Dr. Isi Forbes Neutrophils/100 WBC (Bld) 90.1 % Critically high 43.0-75.0 [facility] Comment on above: Performed By: #### C BC #### [facility] [address] [place] [address] Dr. Isi Forbes Platelet mean volume (Bld) [Entitic vol] 8.9 fL Critically low 9.5-13.5 [facility] Comment on above: Performed By: #### C BC #### [facility] [address] [place] [address] Dr. Isi Forbes PLT 276 103/ul Normal 150-450 [facility] Comment on above: Performed By: #### C BC #### [facility] [address] [place] [address] Dr. Isi Forbes RBC 3.53 106/ul Critically low 4.20-5.[address] [facility] Comment on above: Performed By: #### C BC #### [facility] [address] [place] [address] Dr. Isi Forbes WBC 15.6 103/ul Critically high 4.0-11.0 [facility] Comment on above: Performed By: #### C BC #### [facility] [address] [place] [address] Dr. Isi Forbes UA (CLEAN/CATCH) CASTING AND PASTING SUPERVISOR/MICRO I F IND.on 10-27-2022 Bilirubin Ql (U) Negative Normal NEGATIVE [facility] Comment on above: Performed By: #### C BC #### [facility] [address] [place] [address] Dr. Isi Forbes Clarity (U) CLEAR Normal CLEAR [facility] Comment on above: Performed By: #### C BC #### [facility] [address] [place] [address] Dr. Isi Forbes Color (U) LT. YELLOW Normal YELLOW [facility] Comment on above: Performed By: #### C BC #### [facility] [address] [place] [address] Dr. Isi Forbes Glucose Ql (U) Negative Normal NEGATIVE [facility] Comment on above: Performed By: #### C BC #### [facility] [address] [place] [address] Dr. Isi Forbes Hemoglobin Ql (U) Negative Normal NEGATIVE [facility] Comment on above: Performed By: #### C BC #### [facility] [address] [place] [address] Dr. Isi Forbes Ketones Ql (U) Negative Normal NEGATIVE [facility] Comment on above: Performed By: #### C BC #### [facility] [address] [place] [address] Dr. Isi Forbes LEUKOCYTES Negative Normal NEGATIVE [facility] Comment on above: Performed By: #### C BC #### [facility] [address] [place] [address] Dr. Isi Forbes Nitrite Ql (U) Negative Normal NEGATIVE [facility] Comment on above: Performed By: #### C BC #### [facility] [address] [place] [address] Dr. Isi Forbes pH (U) 6.0 [pH] Normal 5-9 [facility] Comment on above: Performed By: #### C BC #### [facility] [address] [address] [address] Isi Forbes SPEC GRAVITY 1.010 Normal 1.005-<=1.[address] [facility] Comment on above: Performed By: #### C BC #### [facility] [address] [address] [address] Isi Forbes UA PROTEIN Negative Normal NEGATIVE/ TRACE [facility] Comment on above: Performed By: #### C BC #### [facility] [address] [address] [address] Isi Forbes UR MICRO IND NOT INDICATED Normal [facility] Comment on above: Performed By: #### C BC #### [facility] [address] [place] [address] Dr. Isi Forbes Urobilinogen Qn (U) 0.2 {Barb'U}/dL Normal 0.2 - 1. 0 [facility] Comment on above: Performed By: #### C BC #### [facility] [address] [place] [address] Dr. Isi Forbes US PREG CERVICAL LENGTHon [...] FREDY DICK Date: 2022-10-27 16:05 Normal [facility] GTT 3 HR PREGon 10-26-2022 Glucose [Mass/Vol] 99 mg/dL Normal 74-[address] [facility] Comment on above: Performed By: #### G TT3P #### [facility] [address] [place] [address] Dr. Isi Forbes Glucose [Mass/Vol] 172 mg/dL Normal [facility] Comment on above: Performed By: #### G TT3P #### [facility] [address] [address] [address] Isi Forbes Glucose [Mass/Vol] 147 mg/dL Normal [facility] Comment on above: Performed By: #### G TT3P #### [facility] [address] [address] [address] Isi Forbes Glucose [Mass/Vol] 125 mg/dL Normal [facility] Comment on above: Performed By: #### G TT3P #### [facility] [address] [address] [address] Isi Forbes GLYCOHEMOGLOBIN A1Con 2022 ADA RECOMMENDATION SEE BELOW Normal [facility] Comment on above: Result Comment: ADA RECOMMENDED LIMIT 4.0 - 6.0 ADA THERAPEUTIC TARGET < 7.0 ACTION SUGGESTED > 7.0 Performed By: #### A 1C #### [facility] [address] [place] [address] Dr. Isi Forbes Glucose [Mass/Vol] 114 mg/dL Normal [facility] Comment on above: Performed By: #### A 1C #### [facility] [address] [address] [address] Isi Forbes HbA1c (Bld) [Mass fraction] 5.6 % Normal 4.5-6.2 [facility] Comment on above: Performed By: #### A 1C #### [facility] [address] [place] [address] Dr. Isi Forbes UA RANDOMon 10-25-2022 Bilirubin Ql (U) Negative Normal NEGATIVE [facility] Comment on above: Performed By: #### R PRQ #### [facility] [address] [place] [address] Dr. Isi Forbes Clarity (U) CLEAR Normal CLEAR [facility] Comment on above: Performed By: #### R PRQ #### [facility] [address] [place] [address] Dr. Isi Forbes Color (U) LT. YELLOW Normal YELLOW [facility] Comment on above: Performed By: #### R PRQ #### [facility] [address] [address] [address] Isi Forbes Glucose Ql (U) Negative Normal NEGATIVE [facility] Comment on above: Performed By: #### R PRQ #### [facility] [address] [place] [address] Dr. Isi Forbes Hemoglobin Ql (U) Negative Normal NEGATIVE [facility] Comment on above: Performed By: #### R PRQ #### [facility] [address] [place] [address] Dr. Isi Forbes Ketones Ql (U) Negative Normal NEGATIVE [facility] Comment on above: Performed By: #### R PRQ #### [facility] [address] [place] [address] Dr. Isi Forbes LEUKOCYTES Negative Normal NEGATIVE [facility] Comment on above: Performed By: #### R PRQ #### [facility] [address] [place] [address] Dr. Isi Forbes Nitrite Ql (U) Negative Normal NEGATIVE [facility] Comment on above: Performed By: #### R PRQ #### [facility] [address] [place] [address] Dr. Isi Forbes pH (U) 7.5 [pH] Normal 5-9 [facility] Comment on above: Performed By: #### R PRQ #### [facility] [address] [place] [address] Dr. Isi Forbes SPEC GRAVITY 1.020 Normal 1.005-<=1.[address] [facility] Comment on above: Performed By: #### R PRQ #### [facility] [address] [place] [address] Dr. Isi Forbes UA PROTEIN Negative Normal NEGATIVE/ TRACE [facility] Comment on above: Performed By: #### R PRQ #### [facility] [address] [place] [address] Dr. Isi Forbes Urobilinogen Qn (U) 0.2 {Barb'U}/dL Normal 0.2 - 1. 0 [facility] Comment on above: Performed By: #### R PRQ #### [facility] [address] [place] [address] Dr. Isi Forbes GLUCOSE - 1HRon 09-27-2022 Glucose [Mass/Vol] 166 mg/dL Critically high 74-106 [facility] Comment on above: Performed By: #### C BC #### [facility] [address] [place] [address] Dr. Isi Forbes HEMOGRAM AND PLATELon 2022 Hematocrit (Bld) [Volume fraction] 30.9 % Critically low 36.0-48.0 [facility] Comment on above: Performed By: #### C BC #### [facility] [address] [place] [address] Dr. Isi Forbes Hemoglobin (Bld) [Mass/Vol] 10.4 g/dL Critically low 12.0-16.0 [facility] Comment on above: Performed By: #### C BC #### [facility] [address] [place] [address] Dr. Isi Forbes MCH (RBC) [Entitic mass] 29.9 pg Normal 26.7-34.0 [facility] Comment on above: Performed By: #### C BC #### [facility] [address] [place] [address] Dr. Isi Forbes MCHC (RBC) [Mass/Vol] 33.7 g/dL Normal 29.9-35.2 [facility] Comment on above: Performed By: #### C BC #### [facility] [address] [place] [address] Dr. Isi Forbes MCV (RBC) [Entitic vol] 88.8 fL Normal 81.0-99.0 [facility] Comment on above: Performed By: #### C BC #### [facility] [address] [place] [address] Dr. Isi Forbes PLT 300 103/ul Normal 150-450 [facility] Comment on above: Performed By: #### C BC #### [facility] [address] [place] [address] Dr. Isi Forbes RBC 3.48 106/ul Critically low 4.20-5.40 [facility] Comment on above: Performed By: #### C BC #### [facility] [address], [place] [address] Dr. Isi Forbes WBC 10.1 103/ul Normal 4.0-11.0 [facility] Comment on above: Performed By: #### C BC #### [facility] [address], [place] [address] Dr. Isi Forbes US PREG ANATOMY SINGLEon [...] by: ASHLEE STOVER Date: 2022-08-04 16:06 Normal [facility] PAP ACOG PANEL 2: 30 to 65on 07-25-2022 . . Normal [facility] Comment on above: Result Comment: Perf ormed at: [facility] Performed By: #### G TT3P #### [facility] [address] [place] [address] Dr. Isi Forbes Age Gdln ACOG Testing 30-65 [facility] Comment on above: Performed By: #### G TT3P #### [facility] [address] [place] [address] Dr. Isi Forbes DIAGNOSIS: Comment Normal [facility] Comment on above: Result Comment: NEGA TIVE FOR INTRAEPITHELIAL LESION OR MALIGNANCY. Performed at: [facility] Performed By: #### G TT3P #### [facility] [address] [place] [address] Dr. Isi Forbes HPV Aptima Negative Normal [facility] Comment on above: Result Comment: This nucleic acid amplification test detects fourteen high-risk HPV types (16,18,31,33,35,39,45,51,52,56,58,59,66,68) without differentiation. Performed at: =G Performed By: #### G TT3P #### [facility] [address] [place] [address] Dr. Isi Forbes HPV Genotype Reflex Comment Normal [facility] Comment on above: Result Comment: Crit eria not met, HPV Genotype not performed. Performed at: [facility] Performed By: #### G TT3P #### [facility] [address] [place] [address] Dr. Isi Forbes Methodology: Comment [facility] Comment on above: Result Comment: This liquid based ThinPrep(R) pap test was screened with the use of an image guided system. Performed at: [facility] Performed By: #### G TT3P #### [facility] [address] [place] [address] Dr. Isi Forbes Note: Comment Normal [facility] Comment on above: Result Comment: The [...] WB Performed By: #### G TT3P #### [facility] [address] [place] [address] Dr. Isi Forbes Performed by: Comment Normal [facility] Comment on above: Result Comment: Mikki Good, Certified Adapted Physical Educator (ASCP) Performed at: [facility] Performed By: #### G TT3P #### [facility] [address] [place] [address] Dr. Isi Forbes Specimen adequacy: Comment Normal [facility] Comment on above: Result Comment: Sati sfactory for evaluation. Endocervical and/or squamous metaplastic cells (endocervical component) are present. Performed at: [facility] Performed By: #### G TT3P #### [facility] [address] [place] [address] Dr. Isi Forbes CHLAMYDIA/GONOCOCCUS SARA (SW AB/URINE/PAPon 07-23-2022 Chlamydia trachomatis, SARA Negative Normal Negative [facility] Comment on above: Performed By: #### C BC #### [facility] [address] [place] [address] Dr. Isi Forbes Neisseria gonorrhoeae, SARA Negative Normal Negative [facility] Comment on above: Performed By: #### C BC #### [facility] [address] [place] [address] Dr. Isi Forbes CBC AUTO DIFFon 06-16-2022 BASO # 0.1 103/ul Normal 0.0-0.1 [facility] Comment on above: Performed By: #### G TT3P #### [facility] [address] [place] [address] Dr. Isi Forbes Basophils/100 WBC (Bld) 0.5 % Normal 0.2-2.0 [facility] Comment on above: Performed By: #### G TT3P #### [facility] [address] [place] [address] Dr. Isi Forbes EO # 0.1 103/ul Normal 0.0-0.7 [facility] Comment on above: Performed By: #### G TT3P #### [facility] [address] [place] [address] [address] Isi Forbes Eosinophils/100 WBC (Bld) 1.2 % Normal 0.9-7.0 [facility] Comment on above: Performed By: #### G TT3P #### [facility] [address] [place] [address] Dr. Isi Forbes Erythrocyte distribution width (RBC) [Ratio] 12.7 % Normal 11.0-15.0 [facility] Comment on above: Performed By: #### G TT3P #### [facility] [address] [place] [address] Dr. Isi Forbes Hematocrit (Bld) [Volume fraction] 33.0 % Critically low 36.0-48.0 [facility] Comment on above: Performed By: #### G TT3P #### [facility] [address] [place] [address] Dr. Isi Forbes Hemoglobin (Bld) [Mass/Vol] 11.3 g/dL Critically low 12.0-16.0 [facility] Comment on above: Performed By: #### G TT3P #### [facility] [address] [place] [address] Dr. Isi Forbes IG # 0.06 10e3/ul Critically high 0.00-0.03 [facility] Comment on above: Performed By: #### G TT3P #### [facility] [address] [place] [address] Dr. Isi Forbes IG % 0.6 % Critically high 0.0-0.[address] [facility] Comment on above: Performed By: #### G TT3P #### [facility] [address] [place] [address] Dr. Isi Forbes LYMPH # 2.0 103/ul Normal 1.2-3.8 [facility] Comment on above: Performed By: #### G TT3P #### [facility] [address] [place] [address] Dr. Isi Forbes Lymphocytes/100 WBC (Bld) 20.0 % Critically low 20.5-60.0 [facility] Comment on above: Performed By: #### G TT3P #### [facility] [address] [place] [address] Dr. Isi Forbes MANUAL DIFF REQ NO Normal [facility] Comment on above: Performed By: #### G TT3P #### [facility] [address] [place] [address] Dr. Isi Forbes MCH (RBC) [Entitic mass] 31.1 pg Normal 26.7-34.0 [facility] Comment on above: Performed By: #### G TT3P #### [facility] [address] [place] [address] Dr. Isi Forbes MCHC (RBC) [Mass/Vol] 34.2 g/dL Normal 29.9-35.2 [facility] Comment on above: Performed By: #### G TT3P #### [facility] [address] [place] [address] Dr. Isi Forbes MCV (RBC) [Entitic vol] 90.9 fL Normal 81.0-99.0 [facility] Comment on above: Performed By: #### G TT3P #### [facility] [address] [place] [address] Dr. Isi Forbes MONO # 0.6 103/ul Normal 0.3-0.8 [facility] Comment on above: Performed By: #### G TT3P #### [facility] [address] [place] [address] Dr. Isi Forbes Monocytes/100 WBC (Bld) 6.0 % Normal 1.7-12.0 [facility] Comment on above: Performed By: #### G TT3P #### [facility] [address] [place] [address] Dr. Isi Forbes NEUT # 7.2 103/ul Critically high 1.4-6.[address] [facility] Comment on above: Performed By: #### G TT3P #### [facility] [address] [place] [address] Dr. Isi Forbes Neutrophils/100 WBC (Bld) 71.7 % Normal 43.0-75.0 [facility] Comment on above: Performed By: #### G TT3P #### [facility] [address] [place] [address] Dr. Isi Forbes Platelet mean volume (Bld) [Entitic vol] 9.5 fL Normal 9.5-13.5 [facility] Comment on above: Performed By: #### G TT3P #### [facility] [address] [place] [address] Dr. Isi Forbes PLT 244 103/ul Normal 150-450 [facility] Comment on above: Performed By: #### G TT3P #### [facility] [address] [place] [address] Dr. Isi Forbes RBC 3.63 106/ul Critically low 4.20-5.40 [facility] Comment on above: Performed By: #### G TT3P #### [facility] [address] [place] [address] Dr. Isi Forbes WBC 10.0 103/ul Normal 4.0-11.0 [facility] Comment on above: Performed By: #### G TT3P #### [facility] [address] [place] [address] Dr. Isi Forbes ER URINE PROFILEon 2 Bilirubin Ql (U) Negative Normal NEGATIVE [facility] Comment on above: Performed By: #### G TT3P #### [facility] [address] [place] [address] Dr. Isi Forbes Clarity (U) CLEAR Normal CLEAR [facility] Comment on above: Performed By: #### G TT3P #### [facility] [address] [place] [address] Dr. Isi Forbes Color (U) LT. YELLOW Normal YELLOW [facility] Comment on above: Performed By: #### G TT3P #### [facility] [address] [place] [address] Dr. Isi Forbes ERUAHJordyn A micrscopic examination will be performed if indicated. Normal [facility] Comment on above: Performed By: #### G TT3P #### [facility] [address] [place] [address] Dr. Isi Forbes Glucose Ql (U) Negative Normal NEGATIVE [facility] Comment on above: Performed By: #### G TT3P #### [facility] [address] [address] [address] Isi Forbes Hemoglobin Ql (U) Negative Normal NEGATIVE [facility] Comment on above: Performed By: #### G TT3P #### [facility] [address] [place] [address] Dr. Isi Forbes Ketones Ql (U) Negative Normal NEGATIVE [facility] Comment on above: Performed By: #### G TT3P #### [facility] [address] [address] [address] Isi Forbes LEUKOCYTES TRACE Abnormal NEGATIVE [facility] Comment on above: Performed By: #### G TT3P #### [facility] [address] [place] [address] Dr. Isi Forbes Nitrite Ql (U) Negative Normal NEGATIVE [facility] Comment on above: Performed By: #### G TT3P #### [facility] [address] [place] [address] Dr. Isi Forbes pH (U) 7.0 [pH] Normal 5-9 [facility] Comment on above: Performed By: #### G TT3P #### [facility] [address] [place] [address] Dr. Isi Forbes SPEC GRAVITY 1.020 Normal 1.005-<=1.[address] [facility] Comment on above: Performed By: #### G TT3P #### [facility] [address] [place] [address] Dr. Isi Forbes UA PROTEIN Negative Normal NEGATIVE/ TRACE [facility] Comment on above: Performed By: #### G TT3P #### [facility] [address] [place] [address] Dr. Isi Forbes UR MICRO IND INDICATED Normal [facility] Comment on above: Performed By: #### G TT3P #### [facility] [address] [place] [address] Dr. Isi Forbes Urobilinogen Qn (U) 0.2 {Barb'U}/dL Normal 0.2 - 1. 0 [facility] Comment on above: Performed By: #### G TT3P #### [facility] [address] [address] [address] Isi Forbes PROF CHEM 8 (BAS METB)on Anion gap [Moles/Vol] 11.8 mmol/L Normal [facility] Comment on above: Performed By: #### G TT3P #### [facility] [address] [address] [address] Isi Forbes Calcium [Mass/Vol] 8.8 mg/dL Normal 8.5-10.[address] [facility] Comment on above: Performed By: #### G TT3P #### [facility] [address] [place] [address] Dr. Isi Forbes Chloride [Moles/Vol] 102 mmol/L Normal 98-107 [facility] Comment on above: Performed By: #### G TT3P #### [facility] [address] [place] [address] Dr. Isi Forbes CO2 [Moles/Vol] 26.9 mmol/L Normal 21.0-32.0 [facility] Comment on above: Performed By: #### G TT3P #### [facility] [address] [place] [address] Dr. Isi Forbes Creatinine [Mass/Vol] 0.42 mg/dL Critically low 0.55-1.02 [facility] Comment on above: Performed By: #### G TT3P #### [facility] [address] [place] [address] Dr. Isi Forbes EGFR-AF AFGHAN >60 Normal >=60 [facility] Comment on above: Performed By: #### G TT3P #### [facility] [address] [place] [address] Dr. Isi Forbes EGFR-NON AF AFGHAN >60 Normal >=60 [facility] Comment on above: Performed By: #### G TT3P #### [facility] [address] [place] [address] Dr. Isi Forbes Glucose [Mass/Vol] 86 mg/dL Normal 74-[address] [facility] Comment on above: Performed By: #### G TT3P #### [facility] [address] [address] [address] Isi Forbes Potassium [Moles/Vol] 3.7 mmol/L Normal 3.5-5.1 [facility] Comment on above: Performed By: #### G TT3P #### [facility] [address] [address] [address] Isi Forbes Sodium [Moles/Vol] 137 mmol/L Normal 136-145 [facility] Comment on above: Performed By: #### G TT3P #### [facility] [address] [place] [address] Dr. Isi Forbes Urea nitrogen [Mass/Vol] 9.0 mg/dL Normal 7.0-18.0 [facility] Comment on above: Performed By: #### G TT3P #### [facility] [address] [place] [address] Dr. Isi Forbes Urea nitrogen/Creatinine [Mass ratio] 21.4 mg/mg Normal [facility] Comment on above: Performed By: #### G TT3P #### [facility] [address] [place] [address] Dr. Isi Forbes URINE MICROSCOPIC ONLYon BACTERIA TRACE Abnormal NONE SEEN [facility] Comment on above: Performed By: #### C BC #### [facility] [address] [place] [address] Dr. Isi Forbes Bacteria identified Cx Nom (U) NOT INDICATED Normal [facility] Comment on above: Performed By: #### C BC #### [facility] [address] [place] [address] Dr. Isi Forbes CAST NONE SEEN Normal NONE SEEN [facility] Comment on above: Performed By: #### C BC #### [facility] [address] [place] [address] Dr. Isi Forbes Crystals LM Nom (Urine sed) NONE SEEN Normal NONE SEEN [facility] Comment on above: Performed By: #### C BC #### [facility] [address] [place] [address] Dr. Isi Forbes Epithelial cells LM Ql (Urine sed) MODERATE Abnormal NONE SEEN /RARE [facility] Comment on above: Performed By: #### C BC #### [facility] [address] [place] [address] Dr. Isi Forbes MUCOUS NONE SEEN Normal NONE SEEN [facility] Comment on above: Performed By: #### C BC #### [facility] [address] [place] [address] Dr. Isi Forbes RBC NONE SEEN Abnormal 0-2 [facility] Comment on above: Performed By: #### C BC #### [facility] [address] [place] [address] Dr. Isi Forbes WBC 2-5 Abnormal NONE SEEN [facility] Comment on above: Performed By: #### C BC #### [facility] [address] [place] [address] Dr. Isi Forbes HEP B SURFACE ANTIGEN SCREEN on 06-05-2022 HBsAg Screen Negative Normal Negative [facility] Comment on above: Performed By: #### H BSANS #### [facility] [address] [place] [address] Dr. Isi Forbes HEPATITIS C VIRUS AB W/ REFL EX QUANTon 06-05-2022 HCV AB 0.1 s/co ratio Normal 0.0-0.9 [facility] Comment on above: Performed By: #### G TT3P #### [facility] [address] [place] [address] Dr. Isi Forbes Interpretation: Comment Normal [facility] Comment on above: Result Comment: Nega tive Not infected with HCV, unless recent infection is suspected or other evidence exists to indicate HCV infection. Performed By: #### G TT3P #### [facility] [address] [place] [address] Dr. Isi Forbes HIV 1 AND 2 WITH REFLEXon HIV Screen 4th Generation wRfx Non-Reactive Normal Non Reactive [facility] Comment on above: Result Comment: HIV Negative HIV-1/HIV-2 antibodies and HIV-1 p24 antigen were NOT detected. There is no laboratory evidence of HIV infection. Performed By: #### C BC #### [facility] [address] [place] [address] Dr. Isi Forbes RPR QUANTon 06-05-2022 Rapid Plasma Reagin, Quant Non-Reactive Normal NonRea<1:1 [facility] Comment on above: Result Comment: Plea Note: This test does not meet current guidelines for screening and diagnosis of syphilis. This test is intended for following treatment response in patients being treated for syphilis infection. To screen for syphilis infection, a reflex cascade that includes both RPR and a treponema-specific assay should be utilized, such as Treponema pallidum (Syphilis) Screening Liberal (790345) or Rapid Plasma Reagin (RPR) Test With Reflex to Quantitative RPR and Confirmatory Treponema pallidum Antibodies (151422). Performed By: #### R PRQ #### [facility] [address] [place] [address] Dr. Isi Forebs RUBELLA AB IGGon 06-05-2022 Rubella Antibodies, IgG 6.87 index Normal Immune >0.99 [facility] Comment on above: Result Comment: Non- immune <0.90 Equivocal 0.90 - 0.99 Immune >0.99 Performed By: #### R PRQ #### [facility] [address] [place] [address] Dr. Isi Forbes CBC AUTO DIFFon 06-04-2022 BASO # 0.0 103/ul Normal 0.0-0.1 [facility] Comment on above: Performed By: #### C BC #### [facility] [address] [place] [address] Dr. Isi Forbes Basophils/100 WBC (Bld) 0.5 % Normal 0.2-2.0 [facility] Comment on above: Performed By: #### C BC #### [facility] [address] [place] [address] Dr. Isi Forbes EO # 0.1 103/ul Normal 0.0-0.7 [facility] Comment on above: Performed By: #### C BC #### [facility] [address] [place] [address] Dr. Isi Forbes Eosinophils/100 WBC (Bld) 1.5 % Normal 0.9-7.0 [facility] Comment on above: Performed By: #### C BC #### [facility] [address] [place] [address] Dr. Isi Forbes Erythrocyte distribution width (RBC) [Ratio] 12.1 % Normal 11.0-15.0 [facility] Comment on above: Performed By: #### C BC #### [facility] [address] [place] [address] Dr. Isi Forbes Hematocrit (Bld) [Volume fraction] 35.3 % Critically low 36.0-48.0 [facility] Comment on above: Performed By: #### C BC #### [facility] [address] [place] [address] Dr. Isi Forbes Hemoglobin (Bld) [Mass/Vol] 12.2 g/dL Normal 12.0-16.0 [facility] Comment on above: Performed By: #### C BC #### [facility] [address] [place] [address] Dr. Isi Forbes IG # 0.03 10e3/ul Normal 0.00-0.03 [facility] Comment on above: Performed By: #### C BC #### [facility] [address] [place] [address] Dr. Isi Forbes IG % 0.3 % Normal 0.0-0.5 [facility] Comment on above: Performed By: #### C BC #### [facility] [address] [place] [address] Dr. Isi Forbes LYMPH # 1.7 103/ul Normal 1.2-3.8 [facility] Comment on above: Performed By: #### C BC #### [facility] [address] [place] [address] Dr. Isi Forbes Lymphocytes/100 WBC (Bld) 20.1 % Critically low 20.5-60.0 [facility] Comment on above: Performed By: #### C BC #### [facility] [address] [place] [address] Dr. Isi Forbes MANUAL DIFF REQ NO Normal [facility] Comment on above: Performed By: #### C BC #### [facility] [address] [place] [address] Dr. Isi Forbes MCH (RBC) [Entitic mass] 30.7 pg Normal 26.7-34.0 [facility] Comment on above: Performed By: #### C BC #### [facility] [address] [place] [address] Dr. Isi Forbes MCHC (RBC) [Mass/Vol] 34.6 g/dL Normal 29.9-35.2 [facility] Comment on above: Performed By: #### C BC #### [facility] [address] [place] [address] Dr. Isi Forbes MCV (RBC) [Entitic vol] 88.9 fL Normal 81.0-99.0 [facility] Comment on above: Performed By: #### C BC #### [facility] [address] [place] [address] Dr. Isi Forbes MONO # 0.5 103/ul Normal 0.3-0.8 [facility] Comment on above: Performed By: #### C BC #### [facility] [address] [place] [address] Dr. Isi Forbes Monocytes/100 WBC (Bld) 5.4 % Normal 1.7-12.0 [facility] Comment on above: Performed By: #### C BC #### [facility] [address] [place] [address] Dr. Isi Forbes NEUT # 6.2 103/ul Normal 1.4-6.5 [facility] Comment on above: Performed By: #### C BC #### [facility] [address] [place] [address] Dr. Isi Forbes Neutrophils/100 WBC (Bld) 72.2 % Normal 43.0-75.0 [facility] Comment on above: Performed By: #### C BC #### [facility] [address] [place] [address] Dr. Isi Forbes Platelet mean volume (Bld) [Entitic vol] 9.4 fL Critically low 9.5-13.5 [facility] Comment on above: Performed By: #### C BC #### [facility] [address] [place] [address] Dr. Isi Forbes PLT 257 103/ul Normal 150-450 [facility] Comment on above: Performed By: #### C BC #### [facility] [address] [address] [address] Isi Forbes RBC 3.97 106/ul Critically low 4.20-5.40 [facility] Comment on above: Performed By: #### C BC #### [facility] [address] [address] [address] Isi Forbes WBC 8.6 103/ul Normal 4.0-11.0 [facility] Comment on above: Performed By: #### C BC #### [facility] [address] [place] [address] Dr. Isi Forbes CULTURE URINEon 06-04-2022 CULTURE URINE Culture Observations : LIGHT GROWTH OF MIXED GENITAL ALOK. NO POTENTIAL PATHOGENS SEEN. Normal [facility] Comment on above: Performed By: #### U RCX #### [facility] [address] [place] [address] Dr. Isi Forbes DRUG SCREEN RAPID (URINE)on 06-04-2022 AMP Negative Normal NEGATIVE [facility] Comment on above: Performed By: #### G TT3P #### [facility] [address] [place] [address] Dr. Isi Forbes BAR Negative Normal NEGATIVE [facility] Comment on above: Performed By: #### G TT3P #### [facility] [address] [place] [address] Dr. Isi Forbes BUP Negative Normal NEGATIVE [facility] Comment on above: Performed By: #### G TT3P #### [facility] [address] [place] [address] Dr. Isi Forbes BZO Negative Normal NEGATIVE [facility] Comment on above: Performed By: #### G TT3P #### [facility] [address] [place] [address] Dr. Isi Forbes BEATA Negative Normal NEGATIVE [facility] Comment on above: Performed By: #### G TT3P #### [facility] [address] [place] [address] Dr. Isi Forbes CUT-OFFS SEE BELOW Normal [facility] Comment on above: [...] ng/mL Performed By: #### G TT3P #### [facility] [address] [place] [address] Dr. Isi Forbes DRUG CUT HEADER DRUG CLASS TEST SYSTEM CUT-OFF CONCENTRATIONS ARE FOLLOWS: Normal [facility] Comment on above: Performed By: #### G TT3P #### [facility] [address] [place] [address] Dr. Isi Forbes mAMP Negative Normal NEGATIVE [facility] Comment on above: Performed By: #### G TT3P #### [facility] [address] [place] [address] Dr. Isi Forbes MTD Negative Normal NEGATIVE [facility] Comment on above: Performed By: #### G TT3P #### [facility] [address] [place] [address] Dr. Isi Forbes OPI Negative Normal NEGATIVE [facility] Comment on above: Performed By: #### G TT3P #### [facility] [address] [place] [address] Dr. Isi Forbes OXY Negative Normal NEGATIVE [facility] Comment on above: Performed By: #### G TT3P #### [facility] [address] [place] [address] Dr. Isi Forbes PCP Negative Normal NEGATIVE [facility] Comment on above: Performed By: #### G TT3P #### [facility] [address] [address] [address] Isi Forbes PPX Negative Normal NEGATIVE [facility] Comment on above: Performed By: #### G TT3P #### [facility] [address] [address] [address] Isi Forbes TCA Negative Normal NEGATIVE [facility] Comment on above: Performed By: #### G TT3P #### [facility] [address] [address] [address] Isi Forbes THC Positive Abnormal NEGATIVE [facility] Comment on above: Performed By: #### G TT3P #### [facility] [address] [place] [address] Dr. Isi Forbes GLYCOHEMOGLOBIN A1Con 2021 ADA RECOMMENDATION SEE BELOW Normal [facility] Comment on above: Result Comment: ADA RECOMMENDED LIMIT 4.0 - 6.0 ADA THERAPEUTIC TARGET < 7.0 ACTION SUGGESTED > 7.0 Performed By: #### A 1C #### [facility] [address] [place] [address] Dr. Isi Forbes Glucose [Mass/Vol] 111 mg/dL Normal [facility] Comment on above: Performed By: #### A 1C #### [facility] [address] [place] [address] Dr. Isi Forbes HbA1c (Bld) [Mass fraction] 5.5 % Normal 4.5-6.2 [facility] Comment on above: Performed By: #### A 1C #### [facility] [address] [place] [address] Dr. Isi Forbes AUTUMN BOX TEST PT SEND OUTo n 06-04-2022 SENT TO REF LAB 06/04/2022 [address] [facility] Comment on above: Performed By: #### R PRQ #### [facility] [address] [place] [address] Dr. Isi Forbes TYPE AND SCREENon 06-04-2022 TYPE AND SCREEN Negative Normal [facility] Comment on above: Performed By: #### T NS #### [facility] [address] [address] [address] Isi Forbes US PREG TVon 05-18-2022 [...] FREDY DICK Date: 2022-05-18 05:51 Normal [facility] HCG,Urineon 11-04-2020 Beta HCG ( test) Ql (U) Negative Normal [facility] Comment on above: Result Comment: PERF ORMED BY: [place] [address] PATHOLOGIST TOBACCO CLASSER MIKE LECHUGA M.D. Performed By: #### U HCG #### [address] [place] 11-04-2020 L - -------- Specimen: Received: 11/04/20 Status: PRASAD Nick Num: [id number] Spec Type: Surgical Subm Dr: Esequiel Lyles MD Tissues: A Duodenum - Biopsy (DUODENAL BX) Procedures: HE Stain/2, Gross/Micro L4 -------- Patient Age/Sex Location Account Attending Physician -------- Debbi Prado 30/F [id number] Esequiel Lyles MD -------- SPEC NUM: [id number] RECD: 11/04/20 STATUS: PRASAD NICK NUM: [id number] LADAN: 11/04/[address] [facility] [address]: Esequiel Lyles MD ENTERED: 11/04/[address] [facility] [address]: BETINA TYPE: Surgical DEPT: S ORDERED: [...] Entirely submitted in one cassette labeled A1. (TANA/YJ) Microscopic Description Two glass slides with H E stained material have been examined. The microscopic findings support the above pathologic diagnosis. -------- Specimen: Received: 11/04/20 Status: PRASAD Nick Num: [id number] Spec Type: Surgical Subm Dr: Esequiel Lyles MD Tissues: A Duodenum - Biopsy (DUODENAL BX) Procedures: HE Stain/2, Gross/Micro L4 -------- Patient: Debbi Prado [id number] (Continued) -------- Specimen: Received: 11/04/20 (Continued) Signed (signature on file) Rhys Mckenzie MD 11/05/20 1050 -------- Specimen: Received: 11/04/20 Status: PRASAD Nick Num: [id number] Spec Type: Surgical Subm Dr: Esequiel Lyles MD Tissues: A Duodenum - Biopsy (DUODENAL BX) Procedures: HE Stain/2, Gross/Micro L4 -------- Patient: Jenn Pradoa [id number] (Continued) -------- Specimen: Received: 11/04/20 (Continued) CPT Codes 58834 -------- -------- Specimen: Received: 11/04/20 Status: PRASAD Nick Num: [id number] Spec Type: Surgical Subm Dr: Esequiel Lyles MD Tissues: A Duodenum - Biopsy (DUODENAL BX) Procedures: HE Stain/2, Gross/Micro L4 -------- Patient: Debbi Prado [id number] (Continued) -------- Signed (signature on file) Rhys Mckenzie MD 11/05/20 1050 Normal [facility] SARS-CoV-2 (COVID-19) RNA SARA+probe Ql (Unsp spec) Negative Normal Negative [facility] Comment on above: Order Comment: Healt hcare Worker?: N Result Comment: Refe rence: Negative Testing for SARS-CoV-2 by RT-PCR This test was developed and its performance characteristics determined by [employer] and validated at the [facility]. This test has not been [...] is terminated or revoked sooner. PERFORMED BY: [place] [address] PATHOLOGIST TOBACCO CLASSER MIKE LECHUGA M.D. Performed By: #### C OVID-19 [facility] #### [address] [id number] [facility] Coding Summaryon 05-26-2020 Coding Summary CODING DATE: 05/26/2020 [facility] STATUS: Home PAYOR: [employer] ADMIT [...] Ashleigh Posada Date Saved: 05/26/2020 08:27 am [facility] Consent Formson 05-26-2020 Consent Forms [id number] .[facility] Provider Orderson 05-26-2020 Provider Orders [id number] Novel Coronavirus (CoVI D-19), SARA LCon 05-24-2020 SARS-CoV-2, SARA (COVID-19) LC Not Detected Not Detected [facility] Comment on above: Order Comment: [id number] [phone] Result Comment: This nucleic acid amplification test was developed and its performance characteristics determined by [employer]. Nucleic acid amplification tests include PCR and [...] detected) result in this assay. Performed At: [facility] [address] [facility] [place] [id number] Rere Bejarano MD Ph:[phone] Performed By: #### 6 [id number] ####[facility] (DEFAULT)[address] [place] [address] Progress Note - Nurseon Progress Note - Nurse Nasal swab perform ed without complication. Patient tolerated well. Education given. Patient verbalized understanding. [Electronically Signed on: 05/22/2020 11:25 EST] Genesis Ndiaye RN [Verified on: 05/22/2020 11:25 EST] Genesis Ndiaye RN [facility] Ambulatory Clinical Summaryo n 04-11-2020 Ambulatory Clinical Summary {[id number] [facility] Coding Summaryon 02-21-2020 Coding Summary CODING DATE: 02/21/2020 [facility] STATUS: Home PAYOR: [employer] ADMIT [...] Ashleigh Posada Date Saved: 02/21/2020 02:14 pm [facility] Consent Formson 02-18-2020 Consent Forms [id number] .[facility] 2019 Novel Coronavirus (CoVI D-19), SARA LCon 02-16-2020 SARS-CoV-2, SARA (COVID-19) LC Not Detected Not Detected [facility] Comment on above: Result Comment: This test was developed and its performance characteristics determined by [employer]. This test has not been FDA cleared [...] detected) result in this assay. Performed At: [facility] [address] [facility] [place] [id number] Rere Bejarano MD Ph:[phone] Performed By: #### 6 [id number] ####[facility] (DEFAULT)[address] [place] [address] Provider Orderson 02-15-2020 Provider Orders [id number] .00OTGTIFF [facility] Provider Orderson 02-14-2020 Provider Orders [id number] .00OTGTIFF [facility] IgA, Quant.on 02-13-2020 IgA [Mass/Vol] 202 mg/dL 87-352 [facility] Comment on above: Result Comment: Perf ormed at: [facility] [address], [place] [id number] PhD Dennis Toussaint Performed By: #### 2 975645, 0406183, 93322082, 1282695, 30212398, 71080237, 71597996 ####[facility] [address] [place] [address] t-TRANSGLUTAMINASE IgAon tTG IgA Qn (S) <2 0-3 [facility] Comment on above: Result Comment: Nega tive 0 - 3 Weak Positive 4 - 10 Positive >10 Tissue Transglutaminase (tTG) has been identified as the endomysial antigen. Studies have demonstr- ated that endomysial IgA antibodies have over 99% specificity for gluten sensitive enteropathy. Performed at: [facility] [address], [place] [id number] PhD Dennis Toussaint Performed By: #### 2 646521, 9525578, 82472595, 5786314, 23678593, 57711973, [id number] #### [facility] [address] [place] [address] Coding Summary.on 02-12-2020 Coding Summary. CODING DATE: 02/12/2020 FINAL [facility] STATUS: Home (Routine DC) PAYOR: Commercial [...] CphT Date Saved: 02/12/2020 09:01 am Normal [facility] Auto Diffon 02-11-2020 Basophils/100 WBC (Bld) 0.5 % Normal 0.0-2.0 [facility] Comment on above: Order Comment: Order Added by Discern Expert. Performed By: #### 2 647207, 8329223, 07613101, 5513687, 70053986, 97209430, 32635368 #### [facility] [address] [place] [address] Basophils/Leukocytes Auto (Bld) [Pure # fraction] 0.0 E9/L Normal 0.0-0.2 [facility] Comment on above: Order Comment: Order Added by Discern Expert. Performed By: #### 2 658984, 2076705, 62925373, 8430603, 74797730, 37963642, 79410734 #### [facility] [address] [place] [address] Eosinophils/100 WBC (Bld) 1.7 % Normal 0.0-8.0 [facility] Comment on above: Order Comment: Order Added by Discern Expert. Performed By: #### 2 668667, 8703710, 49048981, 0030579, 24571192, 78158428, 49305981 #### [facility] [address] [place] [address] Eosinophils/Leukocyte s Auto (Bld) [Pure # fraction] 0.2 E9/L Normal 0.0-0.5 [facility] Comment on above: Order Comment: Order Added by Discern Expert. Performed By: #### 2 730194, 0868141, 32767559, 1643186, 86353206, 08801588, 92688491 #### [facility] [address] [place] [address] Lymphocytes/100 WBC (Bld) 21.9 % Normal 14.0-50.0 [facility] Comment on above: Order Comment: Order Added by Discern Expert. Performed By: #### 2 131059, 4192981, 92449809, 5231674, 34892584, 43168229, 22416295 #### [facility] [address] [place] [address] Lymphocytes/Leukocyte s Auto (Bld) [Pure # fraction] 2.0 E9/L Normal 1.0-4.0 [facility] Comment on above: Order Comment: Order Added by Discern Expert. Performed By: #### 2 606147, 3377891, 42717662, 1894749, 59321354, 02544130, 13890983 #### [facility] [address] [place] [address] Monocytes/100 WBC (Bld) 7.6 % Normal 4.0-14.0 [facility] Comment on above: Order Comment: Order Added by Discern Expert. Performed By: #### 2 142477, 5754915, 33930721, 0701958, 03417134, 81308953, 10975717 #### [facility] [address] [place] [address] Monocytes/Leukocytes Auto (Bld) [Pure # fraction] 0.7 E9/L Normal 0.2-1.0 [facility] Comment on above: Order Comment: Order Added by Discern Expert. Performed By: #### 2 897876, 8612877, 24698401, 4915769, 27821852, 35447278, 15257688 #### [facility] [address] [place] [address] Neutrophils/100 WBC (Bld) 68.3 % Normal 36.0-75.0 [facility] Comment on above: Order Comment: Order Added by Discern Expert. Performed By: #### 2 550838, 2750394, 85630481, 7822564, 68229627, 51658267, 74531330 #### [facility] [address] [place] [address] Neutrophils/Leukocyte s Auto (Bld) [Pure # fraction] 6.2 E9/L Normal 2.0-7.5 [facility] Comment on above: Order Comment: Order Added by Discern Expert. Performed By: #### 2 399074, 9512216, 48839609, 2347030, 39014021, 95801629, 86317753 #### [facility] [address] [place] [address] CBC w/ Auto Diffon 0 Erythrocyte distribution width (RBC) [Ratio] 13.1 % Normal 10.9-14.2 [facility] Comment on above: Performed By: #### 2 322997, 8623040, 39327202, 2964919, 53230778, 78258003, 02342538 #### [facility] [address] [place] [address] Hematocrit (Bld) [Volume fraction] 41.8 % Normal 34.0-46.0 [facility] Comment on above: Performed By: #### 2 086929, 5513658, 44228118, 8378529, 31124523, 28035269, 50927576 #### [facility] [address] [place] [address] Hemoglobin (Bld) [Mass/Vol] 13.9 g/dL Normal 12.0-16.0 [facility] Comment on above: Performed By: #### 2 627793, 8561265, 49728288, 4812288, 95194704, 33586012, 10984329 #### [facility] [address] [place] [address] MCH (RBC) [Entitic mass] 30.7 pg Normal 27.0-34.0 [facility] Comment on above: Performed By: #### 2 614167, 1761296, 13573560, 4354825, 17396475, 30186856, 56335475 #### [facility] [address] [place] [address] MCHC (RBC) [Mass/Vol] 33.4 g/dL Normal 31.4-36.0 [facility] Comment on above: Performed By: #### 2 297624, 5945661, 35800203, 9100482, 70494354, 86450182, 14231086 #### [facility] [address] [place] [address] MCV (RBC) [Entitic vol] 92.1 fL Normal 80.0-100.0 [facility] Comment on above: Performed By: #### 2 207569, 8829666, 20626013, 5039822, 92909439, 26267631, 97336396 #### [facility] [address] [place] [address] Platelet mean volume (Bld) [Entitic vol] 7.7 fL Normal 6.4-10.8 [facility] Comment on above: Performed By: #### 2 296613, 1396788, 00698640, 8801465, 04212398, 08686875, 27585867 #### [facility] [address] [place] [address] Platelets (Bld) [#/Vol] 338.0 E9/L Normal 150.0-500.0 [facility] Comment on above: Performed By: #### 2 392041, 9121604, 53931052, 6271932, 76805205, 98090520, 27610158 #### [facility] [address] [place] [address] RBC (Bld) [#/Vol] 4.5 E12/L Normal 4.3-5.9 [facility] Comment on above: Performed By: #### 2 340567, 9134889, 03272997, 4539979, 70154517, 38258405, 51721388 #### [facility] [address] [place] [address] WBC corrected for nucl RBC Auto (Bld) [#/Vol] 9.1 E9/L Normal 4.0-11.0 [facility] Comment on above: Performed By: #### 2 193156, 4227389, 72426350, 0295288, 10720002, 66391345, 22751035 #### [facility] [address] [place] [address] CMPon 02-11-2020 Albumin [Mass/Vol] 1.4 g/dL Normal 1.1-2.2 [facility] Comment on above: Performed By: #### 2 730327, 9406517, 27622057, 5973973, 25721068, 18691929, 20928350 #### [facility] [address] [place] [address] Albumin [Mass/Vol] 4.5 g/dL Normal 3.3-5.0 [facility] Comment on above: Performed By: #### 2 534544, 7784459, 47557928, 7509163, 67113476, 72884294, 76555371 #### [facility] [address] [place] [address] ALP [Catalytic activity/Vol] 58 Int._Unit/L Normal 21-98 [facility] Comment on above: Performed By: #### 2 772907, 2866176, 20272699, 7397642, 83442440, 37210783, 51188412 #### [facility] [address] [place] [address] ALT No additional P-5'-P [Catalytic activity/Vol] 33 Int._Unit/L Normal 6-46 [facility] Comment on above: Performed By: #### 2 396538, 1931129, 78901346, 7374635, 78784443, 96213741, 15723244 #### [facility] [address] [place] [address] Anion gap [Moles/Vol] 12 mmol/L Normal 6-16 [facility] Comment on above: Performed By: #### 2 371180, 5592134, 48164059, 1436076, 37955736, 93851469, 48691331 #### [facility] [address] [place] [address] AST [Catalytic activity/Vol] 22 Int._Unit/L Normal 5-43 [facility] Comment on above: Performed By: #### 2 837528, 9734008, 22909056, 4435472, 84587363, 15508101, 09755368 #### [facility] [address] [place] [address] Bilirubin [Mass/Vol] 0.5 mg/dL Normal 0.0-1.1 [facility] Comment on above: Performed By: #### 2 377014, 8238117, 45923518, 4765176, 28147237, 45770739, 51079049 #### [facility] [address] [place] [address] Calcium [Mass/Vol] 9.2 mg/dL Normal 8.9-11.1 [facility] Comment on above: Performed By: #### 2 934041, 9396214, 69564916, 7865843, 27948518, 02093134, 19188396 #### [facility] [address] [place] [address] Chloride [Moles/Vol] 106 mmol/L Normal 101-111 [facility] Comment on above: Performed By: #### 2 632807, 0452016, 32703246, 6611482, 80731088, 15418307, 72227948 #### [facility] [address] [place] [address] CO2 [Moles/Vol] 23 mmol/L Normal 21-31 [facility] Comment on above: Performed By: #### 2 198478, 0436853, 24704709, 4332873, 85192328, 18613578, 33528068 #### [facility] [address] [place] [address] Creatinine [Mass/Vol] 0.6 mg/dL Normal 0.5-1.3 [facility] Comment on above: Performed By: #### 2 129027, 8604615, 58435335, 9083728, 11054588, 94719082, 26541558 #### [facility] [address] [place] [address] Globulin (S) [Mass/Vol] 3.3 g/dL Normal 1.4-4.0 [facility] Comment on above: Performed By: #### 2 024128, 9558287, 85711142, 0070473, 50544631, 01112089, 56528978 #### [facility] [address] [place] [address] Glucose [Mass/Vol] 94 mg/dL Normal 55-199 [facility] Comment on above: Result Comment: If t his glucose result represents a fasting glucose, interpretation should refer to the following reference range: 55-99 mg/dL Performed By: #### 2 095451, 4207986, 90501913, 8918021, 52277199, 81611051, 01087555 #### [facility] [address] [place] [address] Potassium [Moles/Vol] 3.9 mmol/L Normal 3.5-5.3 [facility] Comment on above: Performed By: #### 2 696632, 4702209, 56727284, 7601976, 86511540, 66943265, 00638628 #### [facility] [address] [place] [address] Protein [Mass/Vol] 7.8 g/dL Normal 6.0-7.8 [facility] Comment on above: Performed By: #### 2 442919, 0555106, 18039776, 4303898, 12416909, 04078274, 92917968 #### [facility] [address] [place] [address] Sodium [Moles/Vol] 137 mmol/L Normal 135-145 [facility] Comment on above: Performed By: #### 2 437512, 1625953, 41887957, 4184672, 09441908, 08478688, 27743420 #### [facility] [address] [place] [address] Urea nitrogen [Mass/Vol] 12 mg/dL Normal 5-21 [facility] Comment on above: Performed By: #### 2 462528, 2131357, 02215428, 3745612, 08593469, 51889326, 26640679 #### [facility] [address] [place] [address] Urea nitrogen/Creatinine [Mass ratio] 20 No Units Normal 10-20 [facility] Comment on above: Performed By: #### 2 476010, 6382951, 78625824, 8175178, 80990496, 46143841, 42910204 #### [facility] [address] [place] [address] Coding Summaryon 02-11-2020 Coding Summary CODING DATE: 02/11/2020 [facility] STATUS: Home PAYOR: [employer] ADMIT [...] Connie Akers Date Saved: 02/11/2020 08:49 am [facility] Consent for Treatmenton 01-16 Consent for Treatment [id number] .00CD:127 Normal [facility] Gastroenterology Office/Clin ic Noteon 02-11-2020 Gastroenterology Office/Clinic [...] q8hr, # 20 tab(s), Refills(s) 1, [id number] 167.64, cm, 02/11/20 15:12:00 EDT, Height/Length [...] day(s), # 120 cap(s), Refills(s) 11, [id number], 167.64, cm, 02/11/20 15:12:00 EDT, Height/Length [...] day(s), # 20 tab(s), Refills(s) 0, Pharmacy: [facility]/pharmacy #3471, 167.64, cm, 02/11/20 15:12:00 EDT, Height/Length Measured, 90.4, kg, 02/11/20 15:12:00 EDT, Weight Measured 6. Cyclic vomiting syndrome (R11.15: Cyclical vomiting syndrome unrelated to migraine) Advised to stop marijuana use Follow-up With When Contact Information Emma PARSONS MD Within 2 weeks [facility] [place] [place] [address]- Additional Instructions: Patient Education Nausea, Adult Problem [...] Family History Family history is negative Normal [facility] Comment on above: Result Comment: Elec tronically [...] Document Reviewed: 03/15/2012 ExitCare? Patient Information ?2013 [employer]. Normal [facility] Sed Rate Automatedon 020 ESR (Bld) [Velocity] 10 mm/h Normal 0-34 Fish er [facility] Comment on above: Performed By: #### 2 [id number], [id number] #### [facility] [address] [place] [address] eGFRon 02-11-2020 GFR/1.73 sq M predicted among blacks MDRD (S/P/Bld) [Vol rate/Area] mL/min/{1.73_m2} Normal >=59 [facility] Comment on above: Order Comment: Order added by Discern Expert. Result Comment: eGFR is race adjusted. AA=. Performed By: #### 2 [id number], [id number], [id number], [id number] #### [facility] [address] [place] [address] GFR/1.73 sq M predicted among non-blacks MDRD (S/P/Bld) [Vol rate/Area] mL/min/{1.73_m2} Normal >=59 [facility] Comment on above: Order Comment: Order added by Discern Expert. Result Comment: Desulphuring Operator eulogio kidney disease could be indicated at eGFR's of less than 60 mL/min/1.73m2. Kidney failure is indicated at less than 15 mL/min/1.73m2. Performed By: #### 2 [id number], [id number] #### [facility] [address] [place] [address] Historical Records Officeon 02-08-2020 Historical Records Office [id number]. 00CD:127 Normal [facility] Lab - Immunology/Serology Re sultson 01-31-2020 Lab - Immunology/Serology Results [id number] 1.00OTGTIFF Normal [facility] SARS-CoV-2 (COVID-19) PCRon 01-30-2020 COVID-19 PCR Not Detected Normal Not Detected [facility] Comment on above: Order Comment: Sent to [facility] Performed By: #### 6 [id number] ####[facility] (DEFAULT)[address] [place] [address] Provider Orderson 01-29-2020 Provider Orders [id number] .00OTGTIFF [facility] Vital Signs Date Time Vital Sign Value Performing Clinician Cheryl lity 05-02-2024 13:46-0400 Body mass index (BMI) [Ratio] 33.08 kg/m2 Yeni ISAAC Work Phone: [facility] 05-02-2024 13:46-0400 Body weight 90.17 kg Yeni ISAAC Work Phone: [facility] 05-02-2024 13:46-0400 Diastolic blood pressure 80 mm[Hg] Yeni ISAAC Work Phone: [facility] 05-02-2024 13:46-0400 Systolic blood pressure 118 mm[Hg] Yeni ISAAC Work Phone: [facility] Healthcare Encounters Encounter Date Encounter Type Care Provider Facility Start: 05-02-2024 End: 05-02-2024 Bamboo flowsheet Yeni ISAAC Work Phone: [facility] Start: 05-02-2024 End: 05-02-2024 Bamboo flowsheet Yeni ISAAC Work Phone: [facility] OB Start: 05-02-2024 End: 05-02-2024 ambulatory YENI CHANEY Not Available Start: 05-02-2024 End: 05-02-2024 flow sheet Yeni ISAAC Work Phone: [facility] OB Comment on above: Third trimester preg jade; 30 weeks gestation of ; Nausea and vomiting, unspecified vomiting type Start: 04-05-2024 End: 04-05-2024 ambulatory BEKCI TU Not Available Start: 03-15-2024 End: 03-15-2024 ambulatory BECKI TU Not Available Start: 03-08-2024 End: 03-08-2024 ambulatory BECKI TU Not Available Start: 02-23-2024 End: 02-23-2024 ambulatory YENI CHANEY Not Available Start: 02-09-2024 End: 02-09-2024 ambulatory YENI RITU Not Available Start: 01-24-2024 End: 01-24-2024 ambulatory BECKI TU Not Available Start: 01-20-2024 End: 01-21-2024 Emergency department patient visit [facility] Start: 01-20-2024 End: 01-20-2024 Emergency department patient visit [facility] Start: 01-12-2024 End: 01-12-2024 ambulatory BECKI TU Not Available Start: 12-15-2023 End: 12-15-2023 ambulatory BECKI TU Not Available Start: 11-25-2023 End: 11-25-2023 ambulatory BECKI TU Not Available Start: 10-06-2023 End: 10-06-2023 ambulatory BECKI TU Not Available Start: 08-08-2023 End: 08-08-2023 ambulatory BECKI TU Not Available Start: 06-23-2023 End: 06-23-2023 ambulatory BECKI TU Not Available Start: 12-09-2022 End: 12-11-2022 Evaluation [...] End: 05-18-[address] MARIO MARTINEZ . Facility: Procedures Date Procedure Procedure Detail Performing Clinician Start: 05-02-2024 Urnls dip stick/tabl et rgnt non-auto w/o micrscp Becki Tu DO Work Phone: Start: 12-09-2022 Extraction of Produc ts of Conception, Low Cervical, Open Approach DR MARIO MARTINEZ . Plan of Treatment Date Care Activity Detail Author Start: 05-16-2024 End: 05-16-2024 Patient encounter procedure 05/16/2024 2:20 PM EDT Routine [facility] [address] [place] [id number] Yeni Chaney PA [address] [place] [address] [facility] Payers Date Payer Category Payer [facility] BCBS [id number] 1988 Unknown [id number] 2.16.840.1.804787.3.57 9.2.593 1988 Unknown [id number] 2.16.840.1.844142.3.57 9.2.593 1988 Unknown [id number] 2.16.840.1.993225.3.57 9.2.593 1988 Unknown [id number] 2.16.840.1.826327.3.57 9.2.593 1988 Unknown [id number] 2.16.840.1.183370.3.57 9.2.593 1988 Unknown [id number] 2.16.840.1.085455.3.57 9.2.593 1988 Unknown [id number] 2.16840.1.337422.3.57 9.2.593 1988 Unknown [id number] 2.16.840.1.418964.3.57 9.2.593 1988 Unknown [id number] 2.16.840.1.951475.3.57 9.2.593 1988 Unknown [id number] 2.16.840.1.233999.3.57 9.2.593 1988 Unknown [id number] 2.16840.1.337226.3.57 9.2.593 1988 Unknown [id number] 2.16.840.1.754279.3.57 9.2.1286 1988 Unknown [id number] 2.16.840.1.502089.3.57 9.2.1259 1988 Unknown [id number] 2.16.840.1.148767.3.57 9.2.1259 1988 Unknown [id number] 2.16.840.1.873300.3.57 9.2.1259 1988 Unknown [id number] 2.16.840.1.698339.3.57 9.2.1259 1988 Unknown [id number] 2.16.840.1.787138.3.57 9.2.1259 1988 Unknown [id number] 2.16.840.1.657904.3.57 9.2.1259 1988 Unknown [id number] 2.16.840.1.265427.3.57 9.2.9 1988 Unknown [id number] 2.16.840.1.540236.3.57 9.2.1259 1988 Unknown [id number] 2.16840.1.477265.3.57 9.2.9 1988 Unknown [id number] 2.16.840.1.844213.3.57 9.2.9 1988 Unknown [id number] 2.16.840.1.141291.3.57 9.2.9 1988 Unknown [id number] 2.16840.1.195672.3.57 9.2.9 1988 Unknown [id number] 2.16.840.1.895101.3.57 9.2.9 1959 Self-pay [id number] 1961 Unknown [id number] Unknown [id number] 2.16.840.1.951769.3.57 9.2.593 Social History Date Type Detail Facility Start: 06-13-2023 Tobacco smoking stat [facility] Ex-smoker [facility] Start: 07-18-2006 End: 01-15-2021 History of tobacco use Current smoker [facility] Start: 07-18-2006 End: 01-15-2021 History of tobacco use Cigarette Smoker [facility] Start: 04-05-2024 End: 05-02-2024 Alcoholic beverage intake Lifetime non-drinker (finding) [facility] Start: 06-13-2023 History of Social function [facility] Start: 06-13-2023 Tobacco use panel [facility] Start: 06-13-2023 Alcohol Comment caffeine: occasional [facility] Start: 10-16-2023 [facility] Start: 1990 Sex assigned at Not on file [facility] Start: 09-29-2022 Gender identity Identifies as female gender (finding) [facility] History of Present illness Narrative 05-02-2024 MARLIN Pineda - 05/02/2024 1:10 PM EDT Note Date & Type Note Facility 05-02-2024 History of Presen t illness Narrative Reason for Appointment: Patient ID: Debbi Prado is a 33 y.o. female who presents for Routine Visit Patient presents today for Return OB appointment. MEDICATIONS Current Outpatient Medications Medication Instructions iron polysaccharides (PROFE) 391.3 mg, Oral, Daily ondansetron (ZOFRAN) 4 mg, Oral, Every 6 hours PRN, Take 1 tablet by mouth every 6 hours as needed for nausea. ondansetron ODT (ZOFRAN-ODT) 4 mg, Oral, Every 6 hours PRN ALLERGIES Allergies Allergen Reactions Azithromycin Hives and Itching Other Reaction(s): Unknown Reaction PROBLEMS Active Ambulatory Problems Diagnosis Date Noted Bipolar 1 disorder ([facility]) 01/20/2023 Anxiety with depression 01/20/2023 Fatty liver 01/20/2023 Generalized anxiety disorder ([facility]/HCC) 01/20/2023 Irregular menses 01/20/2023 Irritable bowel syndrome with diarrhea 01/20/2023 Mild chronic gastritis 01/20/2023 Grief at loss of child ([facility]) 10/06/2023 Persistent depressive disorder ([facility]) 10/06/2023 Syncope 03/15/2024 Low-lying placenta 03/15/2024 Dizziness 03/15/2024 Dehydration 03/15/2024 Migraine without status migrainosus, not intractable ([facility]) 03/15/2024 Irregular uterine contractions 03/15/2024 Chronic fatigue 04/05/2024 Resolved Ambulatory Problems Diagnosis Date Noted No Resolved Ambulatory Problems Past Medical History: Diagnosis Date Bipolar disorder (CMS/HCC) Depression (CMS/HCC) Herpes IBS (irritable bowel syndrome) Marijuana use Panic attack (CMS/HCC) PTSD (post-traumatic stress disorder) (CMS/[facility]) 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) Thyroid enlargement (CMS/[facility]) HISTORY PAST MEDICAL HISTORY SOCIAL HISTORY Past Medical History: Diagnosis Date Bipolar disorder (CMS/HCC) Depression (CMS/HCC) Fatty liver Herpes IBS (irritable bowel syndrome) Irritable bowel syndrome with diarrhea Marijuana use Mild chronic gastritis Panic attack (CMS/HCC) PTSD (post-traumatic stress disorder) (CMS/HCC) 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) Thyroid enlargement (CMS/HCC) Social History Tobacco Use Smoking status: Former Current packs/day: 0.00 Types: Cigarettes Start date: 07/18/2006 Quit date: 01/15/2021 Years since quittin.2 Smokeless tobacco: Not on file Substance Use Topics Alcohol use: Never Comment: caffeine: occasional Drug use: Yes Types: Marijuana Comment: daily FAMILY HISTORY Family History Problem Relation Name Age of Onset Other (Multi-system failure) Mother secondary to liver disease - COD Other (History of blood transfusion) Mother Ulcers Mother Gastric Ulcer Cirrhosis Mother Hepatitis Mother Edema Mother Myxedema Depression Mother Major Kidney cancer Father Skin cancer Father Arthritis Father Asthma Father Extrinsic Other (Degenerative Disc Disease) Father Ulcers Father Gastric Ulcer Asthma Paternal Grandmother Intrinsic Heart disease Paternal Grandmother COPD Paternal Grandmother No Known Problems Son Mavrix No Known Problems Son Rudi No Known Problems Son Radames SURGICAL HISTORY Past Surgical History: Procedure Laterality Date SECTION, LOW TRANSVERSE 12/09/2022 COLONOSCOPY 12/28/2013 Dr Parsons COLONOSCOPY 12/30/2016 Da Guerra EGD 05/12/2012 Dr Christopher EGD 12/28/2013 Dr Parsons EGD 12/30/2016 Da Guerra INNER EAR SURGERY 1996 Hole patched in Right ear from old tube MYRINGOTOMY W/ TUBES Bilateral 1992 REVIEW OF SYSTEMS Review of Systems: Review of Systems Constitutional: Negative. HENT: Negative. Eyes: Negative. Respiratory: Negative. Cardiovascular: Negative. Gastrointestinal: Negative. Genitourinary: Negative. Musculoskeletal: Negative. Skin: Negative. Neurological: Negative. All other systems reviewed and are negative. Hematological: Negative. Endocrine: Negative. Allergic/Immunologic: Negative. OBJECTIVE Objective: Physical Exam Constitutional: Appearance: Normal appearance. HENT: Head: Normocephalic. Nose: Nose normal. Mouth/Throat: Mouth: Mucous membranes are moist. Cardiovascular: Rate and Rhythm: Normal rate. Pulmonary: Effort: Pulmonary effort is normal. Abdominal: General: Bowel sounds are normal. Palpations: Abdomen is soft. Musculoskeletal: General: Normal range of motion. Cervical back: Normal range of motion. Neurological: General: No focal deficit present. Mental Status: She is alert. Skin: General: Skin is warm and dry. Psychiatric: Mood and Affect: Mood normal. Vitals and nursing note reviewed. Exam conducted with a patient partner present. Vitals: Estimated body mass index is 33.08 kg/m as calculated from the following: Height as of 01/25/23: 5' 5 . Weight as of this encounter: 198 lb 12.8 oz. BP: 118/80 Patient's last menstrual period was 09/26/2023. ASSESSMENT & PLAN ICD-10-CM 1. Third trimester Z34.93 Urine dip 2. 30 weeks gestation of Z3A.30 3. Nausea and vomiting, unspecified vomiting type R11.2 ondansetron ODT (Zofran-ODT) 4 MG disintegrating tablet Return OB: Patient presents today for a routine obstetrics appointment. Patient is currently 30w3d . Patient states she is doing well but has complaints of being tired due to current . Patient has verbalizes frequent movement. labor precautions was discussed/given and patient was instructed to perform kick counts three times a day. Patient given order for NSR and BPP to start at 32 weeks, also needs to start valtrex at next sched appt Orders Placed This Encounter Procedures Urine dip Follow Up: Patient is to return to office in 2 week for routine OB appointment. Documented by MARLIN Pineda on behalf of: MARLIN Pineda documented in this encounter [facility] Clinical Note 12-09-2022 Note Date & Type [...] Spinal with Duramorph. SURGEON: Becki Mae D.O. POSTAL SERVICE WINDOW CLERK: DANIELA Koch URINE OUTPUT: Yellow and clear. [...] the Recovery Room in stable condition. [facility] Evaluation note Note Date & Type Note Facility Evaluation note Diagnosis Third trimester state, incidental 30 weeks gestation of Nausea and vomiting, unspecified vomiting type documented in this encounter [facility] Summary Purpose Family History No Family History [...] section and content) DATE CREATED AUTHOR 04/24/2020 Da Gu[facility] DATE CREATED AUTHOR AUTHOR'S ORGANIZ ATION 05/26/2020 [facility] DATE CREATED AUTHOR AUTHOR'S ORGANIZ ATION 08/02/2021 [facility] DATE CREATED AUTHOR AUTHOR'S ORGANIZ ATION 12/24/2022 [facility] DATE CREATED AUTHOR AUTHOR'S ORGANIZ ATION 01/21/2024 [facility] DATE CREATED AUTHOR AUTHOR'S ORGANIZ ATION 05/04/2024 [facility] EPIC Care Teams (unrecognized sec tion and content) Booth Manager Relationship Specialty Start Date End Date Janice Dinero DO [address] [place] [address] PCP - General Family Medicine 12/20/22 Booth Manager Relationship Specialty Start Date End Date Janice Dinero DO [address] [place] [address] PCP - General Family Medicine 12/20/22 Reason for Visit (unrecogniz ed section and content) Reason Comments Routine Visit FOR RECORDS PERTAINING TO PATIENTS WHO ARE [...] BE BASED ON THE PRIMARY CLINICAL RECORDS. [email or web address] [facility]. provides no warranty or guarantee of the accuracy or completeness of information in this document.
[2024-05-07 03:44] VITALS: BP 128/67; PULSE 114
[2024-05-07 03:54] LABS: Clarity Urine CLEAR (CLEAR); Color Urine LT YELLOW (YELLOW); Specific Gravity Urine 1.015 (1.005-1.025); pH Urine 6.5 (5.0-9.0)
[2024-05-07 03:55] LABS: Bilirubin Urine NEGATIVE (NEGATIVE); Blood Urine NEGATIVE (NEGATIVE); Glucose Urine UA 250 mg/dL (NEGATIVE); Ketones Urine NEGATIVE (NEGATIVE); Leukocyte Esterase Urine NEGATIVE (NEGATIVE); Nitrite Urine NEGATIVE (NEGATIVE); Protein Urine NEGATIVE (NEG/TRACE); Urine Microscopic Indicated NO; Urobilinogen Urine 0.2 EU/dL (0.2-1.0)
--- NOTE | 2024-05-07 05:04 | US_ITS ---
[address] [address] Patient Name: VERO ANAYA MRN: [id number] date: 1990 Sex: F Assigned Patient Location: [facility] Current Patient Location: Accession/Order Number: [id number] Exam Date: 05/07/2024 07:02 Report Date: 05/07/2024 07:46 At the request of: BECKI TUCKER Procedure: US OB placenta EXAM: US OB placenta, US OB cervical length HISTORY: spotting in COMPARISON: 04/05/2024 TECHNIQUE: Transabdominal and transvaginal FINDINGS: position: Cephalic position, longitudinal lie Placenta: Posterior, grade 0. No intraplacental or retroplacental echogenic abnormality Heart rate: 143 beats minute Cervix: 5.3 cm, closed. Prominent blood vessels in the cervix US/US OB placenta IMPRESSION: Prominent blood vessels in the cervix Normal placenta Closed cervix measuring 5.3 cm in length Electronically authenticated by: ASHLEE STOVER Date: 05/07/2024 07:46
--- NOTE | 2024-05-07 05:04 | US_ITS ---
[address] [address] Patient Name: VERO ANAYA MRN: [id number] date: 1990 Sex: F Assigned Patient Location: [facility] Current Patient Location: Accession/Order Number: [id number] Exam Date: 05/07/2024 07:02 Report Date: 05/07/2024 07:46 At the request of: BECKI TUCKER Procedure: US OB cervical length EXAM: US OB placenta, US OB cervical length HISTORY: spotting in COMPARISON: 04/05/2024 TECHNIQUE: Transabdominal and transvaginal FINDINGS: position: Cephalic position, longitudinal lie Placenta: Posterior, grade 0. No intraplacental or retroplacental echogenic abnormality Heart rate: 143 beats minute Cervix: 5.3 cm, closed. Prominent blood vessels in the cervix US/US OB cervical length IMPRESSION: Prominent blood vessels in the cervix Normal placenta Closed cervix measuring 5.3 cm in length Electronically authenticated by: ASHLEE STOVER Date: 05/07/2024 07:46
== END 2024-05-07 07:45 | disposition home or self-care (01) ==
LOC: FBC 03:29
PROVIDERS: Admitting Provider Obstetrics & Gynecology; PCP Family Medicine; Visit Provider Obstetrics & Gynecology
DX: O26.853 Spotting complicating pregnancy, third trimester (principal); Z3A.31 31 weeks gestation of pregnancy
CPT/HCPCS: 59025; 76815; 76817; 81003; G0378; G0379

== ENCOUNTER 2024-05-16 15:07 | Outpatient (OUT) | payer BC, SELFPAY ==
--- OUTSIDE RECORDS SUMMARY | 2024-05-16 15:26 | XMS_ITS | CCD ---
Author Organization [facility] Care Team Providers Care Joy Operator Name Role Phone JUAN ., DR MARTIN [...] ., MERRY Consulting Unavailable REINECK, DR MARKUS Waite Consulting Unavailabl e REINECK, DR MARKUS Waite Attending Unavailabl e REQUEST, DR NONE LISTED Primary Care Unavaila ble REINECK, DR MARKUS Waite Admitting Unavailabl e KARASIK ., DR MARTIN Admitting Unavailabl e KARASIK ., DR MARTIN Consulting Unavailabl e REQUEST, DR NONE LISTED Primary Care Unavaila ble KARASIK ., DR MARTIN Attending Unavailabl e TU ., DR CONNELL Consulting Unavailable ZIEBER, DR FREDY Copeland Consulting Unavailable SERVICES, [facility] Unava ilable RALPH CISNEROS Attending Unavailable JOSE LEONARDO Attending Unavailable JOSE LEONARDO Referring Unavailable SERVICES, [facility] Unava ilable Janice Dinero DO Primary Care [...] (1 source) Azithromycin Drug Allergy 4 [facility] Repository (4 sources) Azithromycin Drug Allergy 7 Hives, Itching [facility] Work Phone: Medications Current Medications Medication Drug Class(es) Dates Sig (Normalized) Sig (Original) ondansetron 4 mg disintegrating oral tablet (10 sources) Serotonin-3 Receptor Antagonist Start: 04-05-2024 take [...] Date Documented Da te Episodic/Chronic Adjustment disorders (4 sources) Grief finding; Translations: [Adjustment disorder with depressed mood] Onset: 10-06-2023 10-06-2023 Chronic Anxiety disorders (8 sources) Mixed anxiety and depressive disorder; Translations: [Other specified anxiety disorders] Onset: 01-20-2023 08-08-2023 Chronic Conditions associated with dizziness or vertigo (4 sources) Dizziness; Translations: [Dizziness and giddiness] Onset: 03-15-2024 03-15-2024 Episodic Diabetes mellitus without complication (1 source) Other abnormal glucose; Translations: [OTHER ABNORMAL GLUCOSE] Onset: 10-31-2022 Episodic Diabetes or abnormal glucose tolerance complicating ; childbirth; or the puerperium (4 sources) Abnormal glucose complicating ; Translations: [ABNORMAL GLUCOSE COMP ] Onset: 10-26-2022 Episodic E Codes: Fall (1 source) Fall Onset: 01-20-2024 Early or threatened labor (8 sources) False labor before 37 completed weeks of gestation, third trimester; Translations: [Irregular uterine contractions] Onset: 10-27-2022 Episodic Fluid and electrolyte disorders (4 sources) Dehydration; Translations: [Dehydration] Onset: 03-15-2024 03-15-2024 Episodic Gastritis and duodenitis (4 sources) Chronic gastritis; Translations: [Unspecified chronic gastritis without bleeding] Onset: 01-20-2023 01-20-2023 Chronic Headache; including migraine (4 sources) Migraine; Translations: [Migraine, unspecified, not intractable, without status migrainosus] Onset: 03-15-2024 03-15-2024 Chronic Hemorrhage during ; abruptio placenta; placenta previa (4 sources) Low lying placenta; Translations: [Low lying placenta NOS or without hemorrhage, unspecified trimester] Onset: 03-15-2024 03-15-2024 Episodic Malaise and fatigue (4 sources) Fatigue; Translations: [Chronic fatigue, unspecified] Onset: 04-05-2024 04-05-2024 Chronic Menstrual disorders (4 sources) Irregular periods; Translations: [Irregular menstruation, unspecified] Onset: 01-20-2023 01-20-2023 Chronic Mood disorders (9 sources) Bipolar disorder, unspecified; Translations: [Bipolar I disorder] Onset: 12-14-2022 01-20-2023 Chronic Nausea and vomiting (3 sources) Nausea; Translations: [Nausea and vomiting] Onset: 11-03-2022 05-02-2024 Episodic Open wounds of head; neck; and trunk (1 source) Laceration without foreign body of right ear, initial encounter; Translations: [Laceration without foreign body of right ear, initial encounter] Onset: 01-20-2024 Episodic Other aftercare (1 source) Other intermediate project manager (current) drug therapy; Translations: [OTH DETENTION CURRENT DRUG THERAPY] Onset: 12-14-2022 Episodic Other [...] DIARRHEA] Onset: 12-14-2022 Chronic Other gastrointestinal disorders (4 sources) Irritable bowel syndrome with diarrhea; Translations: [Irritable bowel syndrome with diarrhea] Onset: 01-20-2023 01-20-2023 Chronic Other liver diseases (1 source) Fatty (change of) liver, not elsewhere classified; Translations: [FATTY CHANGE LIVER NEC] Onset: 12-14-2022 Chronic Other liver diseases (4 sources) Steatosis of liver; Translations: [Fatty (change [...] use, unspecified, uncomplicated] Onset: 11-03-2022 Episodic Syncope (5 sources) Syncope and collapse; Translations: [Syncope] Onset: [...] Test Name Value Interpretation Reference Range Facility [facility] UA (CLEAN/CATCH) 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 BILIRUBIN URINE Negative NEGATIVE [facility] BLOOD URINE Negative NEGATIVE [facility] Clarity (U) CLEAR CLEAR [facility] Color (U) LT YELLOW YELLOW [facility] GLUCOSE URINE UA 250 mg/dL Abnormal NEGATIVE [facility] Interpretation and review of laboratory results Abnormal [facility] Ketones Ql (U) Negative NEGATIVE mg/dL [facility] Leukocyte esterase Test strip Ql (U) Negative NEGATIVE [facility] NITRITE URINE Negative NEGATIVE [facility] pH (U) 6.5 [pH] 5.0 - 9.0 [facility] PROTEIN URINE Negative NEG/TRACE mg/dL [facility] SPECIFIC GRAVITY URINE 1.015 1.005 - 1.025 [facility] URINE MICROSCOPIC INDICATED NO [facility] UROBILINOGEN URINE 0.2 EU/dL 0.2 - 1.0 EU/dL [facility] Urinalysis macro (dipstick) panel (U)on 05-02-2024 Bilirubin, UA Negative Negative - 4(70) +++ mg/dL [facility] Blood, UA Negative Negative - 50 Nelson/mcL [facility] Clarity, UA Clear [facility] Color, UA Yellow [facility] Glucose, UA Negative Negative - 2000(110) ++++ mg/dL [facility] Interpretation and review of laboratory results Abnormal [facility] Ketones, UA Positive Negative - 160(16) ++++ mg/dL [facility] Leukocytes, UA Negative Negative - 500+++ Antonio/mcL [facility] Nitrite, UA Negative Negative - Positive [facility] pH, UA 6 5 - 9 [facility] Protein, UA Positive Negative - 1999(20) ++++ mg/dL [facility] Spec Grav, UA 1.025 1 - 1.03 [facility] Urobilinogen, UA 1.0 0.2 - 12 mg/dL [facility] CBC AND AUTO DIFFon 01-20-20 24 ABSOLUTE BASOPHIL 0.1 X10E9/L Normal 0.0-0.2 [facility] Comment on above: Performed By: #### C MELYSSA NICOLE, 21884-9 #### [facility] ([id number]) [address] [place] [address] 38087 ABSOLUTE NEUTROPHIL 8.1 X10E9/L High 1.5-6.6 [facility] Comment on above: Performed By: #### C MELYSSA NICOLE, 92945-3 #### [facility] ([id number]) [address] [place] [address] 43799 Basophils/100 WBC (Bld) 0.5 % Normal [facility] Comment on above: Performed By: #### Melia NICOLE CMP, 52396-8 #### [facility] ([id number]) [address] [place] [address] 84463 Eosinophils (Bld) [#/Vol] 0.2 10*3/uL Normal 0.0-0.4 [facility] Comment on above: Performed By: #### Melia NICOLE CMP, 73457-8 #### [facility] ([id number]) [address] [place] [address] 44654 Eosinophils/100 WBC (Bld) 1.4 % Normal [facility] Comment on above: Performed By: #### Melia NICOLE [facility], 53484-0 #### [facility] ([id number]) [address] [place] [address] 09119 Erythrocyte distribution width (RBC) [Ratio] 14.4 % Normal 11.5-15.0 [facility] Comment on above: Performed By: #### Melia NICOLE CMP, 39200-4 #### [facility] ([id number]) [address] [place] [address] 09846 Hematocrit (Bld) [Volume fraction] 32.4 % Low 35-47 [facility] Comment on above: Performed By: #### Melia NICOLE [facility], 43151-0 #### [facility] ([id number]) [address] [place] [address] 04082 Hemoglobin (Bld) [Mass/Vol] 10.9 g/dL Low 11.7-15.5 [facility] Comment on above: Performed By: #### Melia NICOLE [facility], 85315-7 #### [facility] ([id number]) [address] [place] [address] 91371 Lymphocytes (Bld) [#/Vol] 2.0 10*3/uL Normal 1.0-3.5 [facility] Comment on above: Performed By: #### Melia NICOLE CMP, 14348-5 #### [facility] ([id number]) [address] [place] [address] 60387 Lymphocytes/100 WBC (Bld) 17.8 % Normal [facility] Comment on above: Performed By: #### Melia NICOLE CMP, 22160-2 #### [facility] ([id number]) [address] [place] [address] 92930 MCH (RBC) [Entitic mass] 28.4 pg Normal 27-34 [facility] Comment on above: Performed By: #### Melia NICOLE CMP, 06820-2 #### [facility] ([id number]) [address] [place] [address] 04847 MCHC (RBC) [Mass/Vol] 33.5 g/dL Normal 32-36 [facility] Comment on above: Performed By: #### Melia NICOLE CMP, 35488-1 #### [facility] ([id number]) [address] [place] [address] 92681 MCV (RBC) [Entitic vol] 85 fL Normal 80-100 [facility] Comment on above: Performed By: #### Melia NICOLE CMP, 46279-8 #### [facility] ([id number]) [address] [place] [address] 28018 Monocytes (Bld) [#/Vol] 0.8 10*3/uL Normal 0-0.9 [facility] Comment on above: Performed By: #### Melia NICOLE CMP, 46920-9 #### [facility] ([id number]) [address] [place] [address] 30767 Monocytes/100 WBC (Bld) 7.1 % Normal [facility] Comment on above: Performed By: #### Melia NICOLE CMP, 51642-4 #### [facility] ([id number]) [address] [place] [address] 30405 Neutrophils/100 WBC (Bld) 73.2 % Normal [facility] Comment on above: Performed By: #### C BCA, CMP, 92301-6 #### [facility] ([id number]) [address] [place] [address] 19335 Platelet mean volume (Bld) [Entitic vol] 7.5 fL Normal 7-12 [facility] Comment on above: Performed By: #### Melia NICOLE CMP, 57067-8 #### [facility] ([id number]) [address] [place] [address] 87138 Platelets (Bld) [#/Vol] 300 10*3/uL Normal 150-450 [facility] Comment on above: Performed By: #### Melia NICOLE CMP, 46866-7 #### [facility] ([id number]) [address] [place] [address] 48176 RBC COUNT 3.83 X10E12/L Normal 3.80-5.20 [facility] Comment on above: Performed By: #### Melia NICOLE, CMP, 59695-9 #### [facility] ([id number]) [address] [place] [address] 17714 WBC (Bld) [#/Vol] 11.1 10*3/uL High 4.0-11.0 [facility] Comment on above: Performed By: #### Melia NICOLE CMP, 52910-0 #### [facility] ([id number]) [address] [place] [address] 08224 COMPREHENSIVE METABOLIC PANE Yassine 01-20-2024 Albumin [Mass/Vol] 3.2 g/dL Normal 3.2-5.3 [facility] Comment on above: Performed By: #### Melia NICOLE, CMP, 34482-0 #### [facility] ([id number]) [address] [place] [address] 03396 ALP [Catalytic activity/Vol] 49 U/L Normal 39-130 [facility] Comment on above: Performed By: #### C COREY, CMP, 28730-0 #### [facility] ([id number]) [address] [place] [address] 35960 ALT [Catalytic activity/Vol] 16 U/L Normal 0-31 [facility] Comment on above: Performed By: #### C BCA, CMP, 43085-6 #### [facility] ([id number]) [address] [place] [address] 55360 Anion gap [Moles/Vol] 7 mmol/L Normal 5-15 [facility] Comment on above: Performed By: #### C BCA, CMP, 61635-6 #### [facility] ([id number]) [address] [place] [address] 11034 AST [Catalytic activity/Vol] 20 U/L Normal 0-41 [facility] Comment on above: Performed By: #### Melia BCA, CMP, 67594-2 #### [facility] ([id number]) [address] [place] [address] 79234 Bilirubin [Mass/Vol] 0.3 mg/dL Normal 0.3-1.2 [facility] Comment on above: Performed By: #### C BCA, CMP, 28939-7 #### [facility] ([id number]) [address] [place] [address] 62127 Calcium [Mass/Vol] 8.6 mg/dL Normal 8.5-10.5 [facility] Comment on above: Performed By: #### C BCA, CMP, 25413-5 #### [facility] ([id number]) [address] [place] [address] 95991 Chloride [Moles/Vol] 99 mmol/L Normal 98-109 [facility] Comment on above: Performed By: #### C BCA, CMP, 88614-8 #### [facility] ([id number]) [address] [place] [address] 87509 CO2 [Moles/Vol] 22 mmol/L Normal 22-32 [facility] Comment on above: Performed By: #### C MELYSSA NICOLE, 99926-3 #### [facility] ([id number]) [address] [place] [address] 42853 Creatinine [Mass/Vol] 0.56 mg/dL Normal 0.40-1.00 [facility] Comment on above: Result Comment: METH OD TRACEABLE TO IDMS STANDARD Performed By: #### C MELYSSA NICOLE, 79362-8 #### [facility] ([id number]) [address] [place] [address] 92882 eGFR (CKD-EPI) NON-RACE DEPENDENT >90 Normal >59 [facility] Comment on above: Result Comment: Reported eGFR is based on the CKD-EPI 2020 equation that does not use a race coefficient. Performed By: #### C MELYSSA NICOLE, 44932-9 #### [facility] ([id number]) [address] [place] [address] 43084 Glucose [Mass/Vol] 102 mg/dL High 65-99 [facility] Comment on above: Performed By: #### C MELYSSA NICOLE, 66677-9 #### [facility] ([id number]) [address] [place] [address] 90143 Potassium [Moles/Vol] 3.7 mmol/L Normal 3.5-5.0 [facility] Comment on above: Performed By: #### C MELYSSA NICOLE, 14410-1 #### [facility] ([id number]) [address] [place] [address] 22922 Protein [Mass/Vol] 7.2 g/dL Normal 6.0-8.0 [facility] Comment on above: Performed By: #### Melia NICOLE CMP, 73322-4 #### [facility] ([id number]) [address] [place] [address] Sodium [Moles/Vol] 128 mmol/L Low 134-146 [facility] Comment on above: Performed By: #### C COREY, [facility], 04971-2 #### [facility] ([id number]) [address] [place] [address] 94951 Urea nitrogen [Mass/Vol] 9 mg/dL Normal 5-23 [facility] Comment on above: Performed By: #### C COREY, [facility], 76278-2 #### [facility] ([id number]) [address] [place] [address] BRAIN WO CONTon CT BRAIN WO [...] Mckinley MD on 01/20/2024 2:56 PM Normal [facility] CT CERVICAL SPINE WO CONTon 01-20-2024 CT [...] Corrales MD on 01/20/2024 2:52 PM Normal [facility] Troponin I.cardiac High sens itivity method [Mass/Vol]on 01-20-2024 1 HOUR TROP I, HIGH SENSITIVITY <2 Normal <16 [facility] Comment on above: Performed By: #### 8 9579-7 #### [facility] ([id number]) [address] [place] [address] 96506 TROPONIN I, HIGH SENSITIVITY <2 Normal <16 [facility] Comment on above: Performed By: #### C BCA, CMP, 80641-2 #### [facility] ([id number]) [address] [place] [address] 55622 CANNABINOID (THC) CONFIRMATI ON, URINEon 12-15-2022 Cannabinoid Positive Abnormal [facility] Comment on above: Performed By: #### C BC #### [facility] [address] [place] [address] Dr. Isi Forbes Carboxy THC GC/MS Conf >750 Normal Cutoff=10 [facility] Comment on above: Performed By: #### C BC #### [facility] [address] [place] [address] Dr. Isi Forbes CBC AUTO DIFFon 12-10-2022 BASO # 0.0 103/ul Normal 0.0-0.1 [facility] Comment on above: Performed By: #### G TT3P #### [facility] [address] [place] [address] Dr. Isi Forbes Basophils/100 WBC (Bld) 0.3 % Normal 0.2-2.0 [facility] Comment on above: Performed By: #### G TT3P #### [facility] [address] [place] [address] Dr. Isi Forbes EO # 0.1 103/ul Normal 0.0-0.7 [facility] Comment on above: Performed By: #### G TT3P #### [facility] [address] [place] [address] Dr. Isi Forbes Eosinophils/100 WBC (Bld) 0.5 % Critically low 0.9-7.0 [facility] Comment on above: Performed By: #### G TT3P #### [facility] [address] [place] [address] Dr. Isi Forbes Erythrocyte distribution width (RBC) [Ratio] 13.8 % Normal 11.0-15.0 [facility] Comment on above: Performed By: #### G TT3P #### [facility] [address] [place] [address] Dr. Isi Forbes Hematocrit (Bld) [Volume fraction] 24.1 % Critically low 36.0-48.0 [facility] Comment on above: Performed By: #### G TT3P #### [facility] [address] [place] [address] Dr. Isi Forbes Hemoglobin (Bld) [Mass/Vol] 7.7 g/dL Critically low 12.0-16.0 [facility] Comment on above: Performed By: #### G TT3P #### [facility] [address] [place] [address] Dr. Isi Forbes IG # 0.11 10e3/ul Critically high 0.00-0.03 [facility] Comment on above: Performed By: #### G TT3P #### [facility] [address] [place] [address] Dr. Isi Forbes IG % 0.9 % Critically high 0.0-0.5 [facility] Comment on above: Performed By: #### G TT3P #### [facility] [address] [place] [address] Dr. Isi Forbes LYMPH # 2.0 103/ul Normal 1.2-3.8 [facility] Comment on above: Performed By: #### G TT3P #### [facility] [address] [place] [address] Dr. Isi Forbes Lymphocytes/100 WBC (Bld) 16.9 % Critically low 20.5-60.0 [facility] Comment on above: Performed By: #### G TT3P #### [facility] [address] [place] [address] Dr. Isi Forbes MANUAL DIFF REQ NO Normal [facility] Comment on above: Performed By: #### G TT3P #### [facility] [address] [place] [address] Dr. Isi Forbes MCH (RBC) [Entitic mass] 27.4 pg Normal 26.7-34.0 [facility] Comment on above: Performed By: #### G TT3P #### [facility] [address] [place] [address] Dr. Isi Forbes MCHC (RBC) [Mass/Vol] 32.0 g/dL Normal 29.9-35.2 [facility] Comment on above: Performed By: #### G TT3P #### [facility] [address] [place] [address] Dr. Isi Forbes MCV (RBC) [Entitic vol] 85.8 fL Normal 81.0-99.0 [facility] Comment on above: Performed By: #### G TT3P #### [facility] [address] [place] [address] Dr. Isi Forbes MONO # 1.5 103/ul Critically high 0.3-0.8 [facility] Comment on above: Performed By: #### G TT3P #### [facility] [address] [place] [address] Dr. Isi Forbes Monocytes/100 WBC (Bld) 12.2 % Critically high 1.7-12.0 [facility] Comment on above: Performed By: #### G TT3P #### [facility] [address] [place] [address] Dr. Isi Forbes NEUT # 8.3 103/ul Critically high 1.4-6.5 [facility] Comment on above: Performed By: #### G TT3P #### [facility] [address] [place] [address] Dr. Isi Forbes Neutrophils/100 WBC (Bld) 69.2 % Normal 43.0-75.0 [facility] Comment on above: Performed By: #### G TT3P #### [facility] [address] [address] [address] Isi Forbes Platelet mean volume (Bld) [Entitic vol] 9.6 fL Normal 9.5-13.5 [facility] Comment on above: Performed By: #### G TT3P #### [facility] [address] [address] [address] Isi Forbes PLT 205 103/ul Normal 150-450 [facility] Comment on above: Performed By: #### G TT3P #### [facility] [address] [address] [address] Isi Forbes RBC 2.81 106/ul Critically low 4.20-5.40 [facility] Comment on above: Performed By: #### G TT3P #### [facility] [address] [place] [address] Dr. Isi Forbes WBC 12.0 103/ul Critically high 4.0-11.0 [facility] Comment on above: Performed By: #### G TT3P #### [facility] [address] [place] [address] Dr. Isi Forbes CBC AUTO DIFFon 12-09-2022 BASO # 0.1 103/ul Normal 0.0-0.1 [facility] Comment on above: Performed By: #### G TT3P #### [facility] [address] [place] [address] Dr. Isi Forbes Basophils/100 WBC (Bld) 0.5 % Normal 0.2-2.0 [facility] Comment on above: Performed By: #### G TT3P #### [facility] [address] [place] [address] Dr. Isi Forbes EO # 0.1 103/ul Normal 0.0-0.7 [facility] Comment on above: Performed By: #### G TT3P #### [facility] [address] [place] [address] Dr. Isi Forbes Eosinophils/100 WBC (Bld) 0.4 % Critically low 0.9-7.0 [facility] Comment on above: Performed By: #### G TT3P #### [facility] [address] [address] [address] Isi Forbes Erythrocyte distribution width (RBC) [Ratio] 13.7 % Normal 11.0-15.0 [facility] Comment on above: Performed By: #### G TT3P #### [facility] [address] [place] [address] Dr. Isi Forbes Hematocrit (Bld) [Volume fraction] 31.9 % Critically low 36.0-48.0 [facility] Comment on above: Performed By: #### G TT3P #### [facility] [address] [place] [address] Dr. Isi Forbes Hemoglobin (Bld) [Mass/Vol] 10.5 g/dL Critically low 12.0-16.0 [facility] Comment on above: Performed By: #### G TT3P #### [facility] [address] [place] [address] Dr. Isi Forbes IG # 0.13 10e3/ul Critically high 0.00-0.03 [facility] Comment on above: Performed By: #### G TT3P #### [facility] [address] [place] [address] Dr. Isi Forbes IG % 1.2 % Critically high 0.0-0.5 [facility] Comment on above: Performed By: #### G TT3P #### [facility] [address] [place] [address] Dr. Isi Forbes LYMPH # 2.0 103/ul Normal 1.2-3.8 [facility] Comment on above: Performed By: #### G TT3P #### [facility] [address] [place] [address] Dr. Isi Forbes Lymphocytes/100 WBC (Bld) 18.0 % Critically low 20.5-60.0 [facility] Comment on above: Performed By: #### G TT3P #### [facility] [address] [place] [address] Dr. Isi Forbes MANUAL DIFF REQ NO Normal [facility] Comment on above: Performed By: #### G TT3P #### [facility] [address] [address] [address] Isi Forbes MCH (RBC) [Entitic mass] 27.6 pg Normal 26.7-34.0 [facility] Comment on above: Performed By: #### G TT3P #### [facility] [address] [place] [address] Dr. Isi Forbes MCHC (RBC) [Mass/Vol] 32.9 g/dL Normal 29.9-35.2 [facility] Comment on above: Performed By: #### G TT3P #### [facility] [address] [place] [address] Dr. Isi Forbes MCV (RBC) [Entitic vol] 83.9 fL Normal 81.0-99.0 [facility] Comment on above: Performed By: #### G TT3P #### [facility] [address] [place] [address] Dr. Isi Forbes MONO # 1.0 103/ul Critically high 0.3-0.8 [facility] Comment on above: Performed By: #### G TT3P #### [facility] [address] [place] [address] Dr. Isi Forbes Monocytes/100 WBC (Bld) 8.9 % Normal 1.7-12.0 [facility] Comment on above: Performed By: #### G TT3P #### [facility] [address] [place] [address] Dr. Isi Forbes NEUT # 7.9 103/ul Critically high 1.4-6.5 [facility] Comment on above: Performed By: #### G TT3P #### [facility] [address] [place] [address] Dr. Isi Forbes Neutrophils/100 WBC (Bld) 71.0 % Normal 43.0-75.0 [facility] Comment on above: Performed By: #### G TT3P #### [facility] [address] [place] [address] Dr. Isi Forbes Platelet mean volume (Bld) [Entitic vol] 10.0 fL Normal 9.5-13.5 [facility] Comment on above: Performed By: #### G TT3P #### [facility] [address] [address] [address] Isi Forbes PLT 264 103/ul Normal 150-450 [facility] Comment on above: Performed By: #### G TT3P #### [facility] [address] [address] [address] Isi Forbes RBC 3.80 106/ul Critically low 4.20-5.40 [facility] Comment on above: Performed By: #### G TT3P #### [facility] [address] [address] [address] Isi Forbes WBC 11.1 103/ul Critically high 4.0-11.0 [facility] Comment on above: Performed By: #### G TT3P #### [facility] [address] [place] [address] Dr. Isi Forbes DRUG SCREEN RAPID (URINE)on 12-09-2022 AMP Negative Normal NEGATIVE [facility] Comment on above: Performed By: #### G TT3P #### [facility] [address] [address] [address] Isi Forbes BAR Negative Normal NEGATIVE [facility] Comment on above: Performed By: #### G TT3P #### [facility] [address] [address] [address] Isi Forbes BUP Negative Normal NEGATIVE [facility] Comment on above: Performed By: #### G TT3P #### [facility] [address] [address] [address] Isi Forbes BZO Negative Normal NEGATIVE [facility] Comment on above: Performed By: #### G TT3P #### [facility] [address] [address] [address] Isi Forbes BEATA Negative Normal NEGATIVE [facility] Comment on above: Performed By: #### G TT3P #### [facility] [address] [place] [address] Dr. Isi Forbes CUT-OFFS SEE BELOW Normal [facility] Comment on above: Result Comment: AMP (Amphetamine): [...] By: #### G TT3P #### [facility] [address] [place] [address] Dr. Isi Forbes DRUG CUT HEADER DRUG CLASS TEST SYSTEM CUT-OFF CONCENTRATIONS ARE FOLLOWS: Normal [facility] Comment on above: Performed By: #### G TT3P #### [facility] [address] [place] [address] Dr. Isi Forbes mAMP Negative Normal NEGATIVE [facility] Comment on above: Performed By: #### G TT3P #### [facility] [address] [place] [address] Dr. Isi Forbes MTD Negative Normal NEGATIVE [facility] Comment on above: Performed By: #### G TT3P #### [facility] [address] [place] [address] Dr. Isi Forbes OPI Negative Normal NEGATIVE [facility] Comment on above: Performed By: #### G TT3P #### [facility] [address] [place] [address] Dr. Isi Forbes OXY Negative Normal NEGATIVE [facility] Comment on above: Performed By: #### G TT3P #### [facility] [address] [place] [address] Dr. Isi Forbes PCP Negative Normal NEGATIVE [facility] Comment on above: Performed By: #### G TT3P #### [facility] [address] [place] [address] Dr. Isi Forbes PPX Negative Normal NEGATIVE [facility] Comment on above: Performed By: #### G TT3P #### [facility] [address] [place] [address] Dr. Isi Forbes TCA Negative Normal NEGATIVE [facility] Comment on above: Performed By: #### G TT3P #### [facility] [address] [place] [address] Dr. Isi Forbes THC Positive Abnormal NEGATIVE [facility] Comment on above: Performed By: #### G TT3P #### [facility] [address] [place] [address] Dr. Isi Forbes TYPE AND SCREENon 12-09-2022 TYPE AND SCREEN Negative Normal [facility] Comment on above: Performed By: #### R PRQ #### [facility] [address] [place] [address] Dr. 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 Isi Forbes Clarity (U) CLEAR Normal CLEAR [facility] Comment on above: Performed By: #### C BC #### [facility] [address] [place] [address] Dr. Isi Forbes Color (U) YELLOW Normal YELLOW [facility] Comment on above: Performed By: #### C BC #### [facility] [address] [place] [address] Dr. Isi Forbes Glucose Ql (U) Negative Normal NEGATIVE [facility] Comment on above: Performed By: #### C BC #### [facility] [address] [place] [address] Dr. Isi Forbes Hemoglobin Ql (U) Negative Normal NEGATIVE [facility] Comment on above: Performed By: #### C BC #### [facility] [address] [place] [address] Dr. Isi Forbes Ketones Ql (U) TRACE Abnormal NEGATIVE [facility] Comment on above: Performed By: #### C BC #### [facility] [address] [place] [address] Dr. Isi Forbes LEUKOCYTES Negative Normal NEGATIVE [facility] Comment on above: Performed By: #### C BC #### [facility] [address] [address] [address] Isi Forbes Nitrite Ql (U) Negative Normal NEGATIVE [facility] Comment on above: Performed By: #### C BC #### [facility] [address] [place] [address] Dr. Isi Forbes pH (U) 6.5 [pH] Normal 5-9 [facility] Comment on above: Performed By: #### C BC #### [facility] [address] [place] [address] Dr. Isi Forbes SPEC GRAVITY 1.025 Normal 1.005-<=1.025 [facility] Comment on above: Performed By: #### C BC #### [facility] [address] [place] [address] Dr. Isi Forbes UA PROTEIN TRACE Normal NEGATIVE/ TRACE [facility] Comment on above: Performed By: #### C BC #### [facility] [address] [place] [address] Dr. Isi Forbes UR MICRO IND NOT INDICATED Normal [facility] Comment on above: Performed By: #### C BC #### [facility] [address] [place] [address] Dr. Isi Forbes Urobilinogen Qn (U) 0.2 {Barb'U}/dL Normal 0.2 - 1. 0 [facility] Comment on above: Performed By: #### C BC #### [facility] [address] [place] [address] Dr. Isi Forbes GROUP B STREP CULTUREon 11-15 S. agalactiae Ag Ql (Unsp spec) Culture Observations: NEGATIVE FOR GROUP B STREPTOCOCCUS. Normal [facility] Comment on above: Performed By: #### R PRQ #### [facility] [address] [place] [address] Dr. Isi Forbes US PREG BIOPHY W [...] Date: 2022-10-31 22:08 Normal [facility] US PREG GROWTHon 11-01-2022 US PREG GROWTH [...] Date: 2022-10-31 22:07 Normal [facility] CBC AUTO DIFFon 10-28-2022 BASO # 0.0 103/ul Normal 0.0-0.1 [facility] Comment on above: Performed By: #### G TT3P #### [facility] [address] [address] [address] Isi Forbes Basophils/100 WBC (Bld) 0.1 % Critically low 0.2-2.0 [facility] Comment on above: Performed By: #### G TT3P #### [facility] [address] [address] [address] Isi Forbes EO # 0.0 103/ul Normal 0.0-0.7 [facility] Comment on above: Performed By: #### G TT3P #### [facility] [address] [place] [address] Dr. Isi Forbes Eosinophils/100 WBC (Bld) 0.1 % Critically low 0.9-7.0 [facility] Comment on above: Performed By: #### G TT3P #### [facility] [address] [place] [address] Dr. Isi Forbes Erythrocyte distribution width (RBC) [Ratio] 12.7 % Normal 11.0-15.0 [facility] Comment on above: Performed By: #### G TT3P #### [facility] [address] [place] [address] Dr. Isi Forbes Hematocrit (Bld) [Volume fraction] 29.1 % Critically low 36.0-48.0 [facility] Comment on above: Performed By: #### G TT3P #### [facility] [address] [place] [address] Dr. Isi Forbes Hemoglobin (Bld) [Mass/Vol] 9.4 g/dL Critically low 12.0-16.0 [facility] Comment on above: Performed By: #### G TT3P #### [facility] [address] [place] [address] Dr. Isi Forbes IG # 0.20 10e3/ul Critically high 0.00-0.03 [facility] Comment on above: Performed By: #### G TT3P #### [facility] [address] [place] [address] Dr. Isi Forbes IG % 1.4 % Critically high 0.0-0.5 [facility] Comment on above: Performed By: #### G TT3P #### [facility] [address] [place] [address] Dr. Isi Forbes LYMPH # 1.9 103/ul Normal 1.2-3.8 [facility] Comment on above: Performed By: #### G TT3P #### [facility] [address] [place] [address] Dr. Isi Forbes Lymphocytes/100 WBC (Bld) 13.5 % Critically low 20.5-60.0 [facility] Comment on above: Performed By: #### G TT3P #### [facility] [address] [place] [address] Dr. Isi Forbes MANUAL DIFF REQ NO Normal [facility] Comment on above: Performed By: #### G TT3P #### [facility] [address] [place] [address] Dr. Isi Forbes MCH (RBC) [Entitic mass] 28.2 pg Normal 26.7-34.0 [facility] Comment on above: Performed By: #### G TT3P #### [facility] [address] [place] [address] Dr. Isi Forbes MCHC (RBC) [Mass/Vol] 32.3 g/dL Normal 29.9-35.2 [facility] Comment on above: Performed By: #### G TT3P #### [facility] [address] [place] [address] Dr. Isi Forbes MCV (RBC) [Entitic vol] 87.4 fL Normal 81.0-99.0 [facility] Comment on above: Performed By: #### G TT3P #### [facility] [address] [place] [address] Dr. Isi Forbes MONO # 0.8 103/ul Normal 0.3-0.8 [facility] Comment on above: Performed By: #### G TT3P #### [facility] [address] [place] [address] Dr. Isi Forbes Monocytes/100 WBC (Bld) 5.9 % Normal 1.7-12.0 [facility] Comment on above: Performed By: #### G TT3P #### [facility] [address] [place] [address] Dr. Isi Forbes NEUT # 10.9 103/ul Critically high 1.4-6.5 [facility] Comment on above: Performed By: #### G TT3P #### [facility] [address] [place] [address] Dr. Isi Forbes Neutrophils/100 WBC (Bld) 79.0 % Critically high 43.0-75.0 [facility] Comment on above: Performed By: #### G TT3P #### [facility] [address] [place] [address] Dr. Isi Forbes Platelet mean volume (Bld) [Entitic vol] 9.3 fL Critically low 9.5-13.5 [facility] Comment on above: Performed By: #### G TT3P #### [facility] [address] [place] [address] Dr. Isi Forbes PLT 265 103/ul Normal 150-450 [facility] Comment on above: Performed By: #### G TT3P #### [facility] [address] [place] [address] Dr. Isi Forbes RBC 3.33 106/ul Critically low 4.20-5.40 [facility] Comment on above: Performed By: #### G TT3P #### [facility] [address] [place] [address] Dr. Isi Forbes WBC 13.8 103/ul Critically high 4.0-11.0 [facility] Comment on above: Performed By: #### G TT3P #### [facility] [address] [place] [address] Dr. Isi Forbes CBC AUTO DIFFon 10-27-2022 BASO # 0.0 103/ul Normal 0.0-0.1 [facility] Comment on above: Performed By: #### C BC #### [facility] [address] [place] [address] Dr. Isi Forbes Basophils/100 WBC (Bld) 0.2 % Normal 0.2-2.0 [facility] Comment on above: Performed By: #### C BC #### [facility] [address] [place] [address] Dr. Isi Forbes EO # 0.0 103/ul Normal 0.0-0.7 [facility] Comment on above: Performed By: #### C BC #### [facility] [address] [place] [address] Dr. Isi Forbes Eosinophils/100 WBC (Bld) 0.1 % Critically low 0.9-7.0 [facility] Comment on above: Performed By: #### C BC #### [facility] [address] [place] [address] Dr. Isi Forbes Erythrocyte distribution width (RBC) [Ratio] 12.7 % Normal 11.0-15.0 [facility] Comment on above: Performed By: #### C BC #### [facility] [address] [place] [address] Dr. Isi Forbes Hematocrit (Bld) [Volume fraction] 30.4 % Critically low 36.0-48.0 [facility] Comment on above: Performed By: #### C BC #### [facility] [address] [place] [address] Dr. Isi Forbes Hemoglobin (Bld) [Mass/Vol] 10.4 g/dL Critically low 12.0-16.0 [facility] Comment on above: Performed By: #### C BC #### [facility] [address] [place] [address] Dr. Isi Forbes IG # 0.19 10e3/ul Critically high 0.00-0.03 [facility] Comment on above: Performed By: #### C BC #### [facility] [address] [place] [address] Dr. Isi Forbes IG % 1.2 % Critically high 0.0-0.5 [facility] Comment on above: Performed By: #### C BC #### [facility] [address] [place] [address] Dr. Isi Forbes LYMPH # 1.1 103/ul Critically low 1.2-3.8 [facility] Comment on above: Performed By: #### C BC #### [facility] [address] [place] [address] Dr. Isi Forbes Lymphocytes/100 WBC (Bld) 6.7 % Critically low 20.5-60.0 [facility] Comment on above: Performed By: #### C BC #### [facility] [address] [place] [address] Dr. Isi Forbes MANUAL DIFF REQ NO Normal [facility] Comment on above: Performed By: #### C BC #### [facility] [address] [place] [address] Dr. Isi Forbes MCH (RBC) [Entitic mass] 29.5 pg Normal 26.7-34.0 [facility] Comment on above: Performed By: #### C BC #### [facility] [address] [place] [address] Dr. Isi Forbes MCHC (RBC) [Mass/Vol] 34.2 g/dL Normal 29.9-35.2 [facility] Comment on above: Performed By: #### C BC #### [facility] [address] [place] [address] Dr. Isi Forbes MCV (RBC) [Entitic vol] 86.1 fL Normal 81.0-99.0 [facility] Comment on above: Performed By: #### C BC #### [facility] [address] [place] [address] Dr. Isi Forbes MONO # 0.3 103/ul Normal 0.3-0.8 [facility] Comment on above: Performed By: #### C BC #### [facility] [address] [place] [address] Dr. Isi Forbes Monocytes/100 WBC (Bld) 1.7 % Normal 1.7-12.0 [facility] Comment on above: Performed By: #### C BC #### [facility] [address] [place] [address] Dr. Isi Forbes NEUT # 14.1 103/ul Critically high 1.4-6.5 [facility] Comment on above: Performed By: #### C BC #### [facility] [address] [place] [address] Dr. Isi Forbes Neutrophils/100 WBC (Bld) 90.1 % Critically high 43.0-75.0 [facility] Comment on above: Performed By: #### C BC #### [facility] [address] [place] [address] Dr. Isi Forbes Platelet mean volume (Bld) [Entitic vol] 8.9 fL Critically low 9.5-13.5 [facility] Comment on above: Performed By: #### C BC #### [facility] [address] [place] [address] Dr. Isi Forbes PLT 276 103/ul Normal 150-450 [facility] Comment on above: Performed By: #### C BC #### [facility] [address] [place] [address] Dr. Isi Forbes RBC 3.53 106/ul Critically low 4.20-5.40 [facility] Comment on above: Performed By: #### C BC #### [facility] [address] [place] [address] Dr. Isi Forbes WBC 15.6 103/ul Critically high 4.0-11.0 [facility] Comment on above: Performed By: #### C BC #### [facility] [address] [place] [address] Dr. 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 Isi Forbes Clarity (U) CLEAR Normal CLEAR [facility] Comment on above: Performed By: #### C BC #### [facility] [address] [place] [address] Dr. Isi Forbes Color (U) LT. YELLOW Normal YELLOW [facility] Comment on above: Performed By: #### C BC #### [facility] [address] [place] [address] Dr. Isi Forbes Glucose Ql (U) Negative Normal NEGATIVE [facility] Comment on above: Performed By: #### C BC #### [facility] [address] [place] [address] Dr. Isi Forbes Hemoglobin Ql (U) Negative Normal NEGATIVE [facility] Comment on above: Performed By: #### C BC #### [facility] [address] [place] [address] Dr. Isi Forbes Ketones Ql (U) Negative Normal NEGATIVE [facility] Comment on above: Performed By: #### C BC #### [facility] [address] [place] [address] Dr. Isi Forbes LEUKOCYTES Negative Normal NEGATIVE [facility] Comment on above: Performed By: #### C BC #### [facility] [address] [place] [address] Dr. Isi Forbes Nitrite Ql (U) Negative Normal NEGATIVE [facility] Comment on above: Performed By: #### C BC #### [facility] [address] [place] [address] Dr. Isi Forbes pH (U) 6.0 [pH] Normal 5-9 [facility] Comment on above: Performed By: #### C BC #### [facility] [address] [place] [address] Dr. Isi Forbes SPEC GRAVITY 1.010 Normal 1.005-<=1.025 [facility] Comment on above: Performed By: #### C BC #### [facility] [address] [place] [address] Dr. Isi Forbes UA PROTEIN Negative Normal NEGATIVE/ TRACE [facility] Comment on above: Performed By: #### C BC #### [facility] [address] [place] [address] Dr. Isi Forbes UR MICRO IND NOT INDICATED Normal [facility] Comment on above: Performed By: #### C BC #### [facility] [address] [place] [address] Dr. Isi Forbes Urobilinogen Qn (U) 0.2 {Barb'U}/dL Normal 0.2 - 1. 0 [facility] Comment on above: Performed By: #### C BC #### [facility] [address] [place] [address] Dr. Isi Forbes US PREG CERVICAL LENGTHon [...] Date: 2022-10-27 16:05 Normal [facility] GTT 3 HR PREGon 10-26-2022 Glucose [Mass/Vol] 99 mg/dL Normal 74-106 [facility] Comment on above: Performed By: #### G TT3P #### [facility] [address] [address] [address] Isi Forbes Glucose [Mass/Vol] 172 mg/dL Normal [facility] Comment on above: Performed By: #### G TT3P #### [facility] [address] [address] [address] Isi Forbes Glucose [Mass/Vol] 147 mg/dL Normal [facility] Comment on above: Performed By: #### G TT3P #### [facility] [address] [address] [address] Isi Forbes Glucose [Mass/Vol] 125 mg/dL Normal [facility] Comment on above: Performed By: #### G TT3P #### [facility] [address] [address] [address] Isi Forbes GLYCOHEMOGLOBIN A1Con 2022 ADA RECOMMENDATION SEE BELOW Normal [facility] Comment on above: Result Comment: ADA RECOMMENDED LIMIT 4.0 - 6.0 ADA THERAPEUTIC TARGET < 7.0 ACTION SUGGESTED > 7.0 Performed By: #### A 1C #### [facility] [address] [address] [address] Isi Forbes Glucose [Mass/Vol] 114 mg/dL Normal [facility] Comment on above: Performed By: #### A 1C #### [facility] [address] [address] [address] Isi Forbes HbA1c (Bld) [Mass fraction] 5.6 % Normal 4.5-6.2 [facility] Comment on above: Performed By: #### A 1C #### [facility] [address] [place] [address] Dr. Isi Forbes UA RANDOMon 10-25-2022 Bilirubin Ql (U) Negative Normal NEGATIVE [facility] Comment on above: Performed By: #### R PRQ #### [facility] [address] [place] [address] Dr. Isi Forbes Clarity (U) CLEAR Normal CLEAR [facility] Comment on above: Performed By: #### R PRQ #### [facility] [address] [place] [address] Dr. Isi Forbes Color (U) LT. YELLOW Normal YELLOW [facility] Comment on above: Performed By: #### R PRQ #### [facility] [address] [place] [address] Dr. Isi Forbes Glucose Ql (U) Negative Normal NEGATIVE [facility] Comment on above: Performed By: #### R PRQ #### [facility] [address] [place] [address] Dr. Isi Forbes Hemoglobin Ql (U) Negative Normal NEGATIVE [facility] Comment on above: Performed By: #### R PRQ #### [facility] [address] [place] [address] Dr. Isi Forbes Ketones Ql (U) Negative Normal NEGATIVE [facility] Comment on above: Performed By: #### R PRQ #### [facility] [address] [place] [address] Dr. Isi Forbes LEUKOCYTES Negative Normal NEGATIVE [facility] Comment on above: Performed By: #### R PRQ #### [facility] [address] [place] [address] Dr. Isi Forbes Nitrite Ql (U) Negative Normal NEGATIVE [facility] Comment on above: Performed By: #### R PRQ #### [facility] [address] [place] [address] Dr. Isi Forbes pH (U) 7.5 [pH] Normal 5-9 [facility] Comment on above: Performed By: #### R PRQ #### [facility] [address] [place] [address] Dr. Isi Forbes SPEC GRAVITY 1.020 Normal 1.005-<=1.025 [facility] Comment on above: Performed By: #### R PRQ #### [facility] [address] [place] [address] Dr. Isi Forbes UA PROTEIN Negative Normal NEGATIVE/ TRACE [facility] Comment on above: Performed By: #### R PRQ #### [facility] [address] [place] [address] Dr. Isi Forbes Urobilinogen Qn (U) 0.2 {Barb'U}/dL Normal 0.2 - 1. 0 [facility] Comment on above: Performed By: #### R PRQ #### [facility] [address] [place] [address] Dr. Isi Forbes GLUCOSE - 1HRon 09-27-2022 Glucose [Mass/Vol] 166 mg/dL Critically high 74-106 T [facility] Comment on above: Performed By: #### C BC #### [facility] [address] [place] [address] Dr. Isi Forbes HEMOGRAM AND PLATELon 2022 Hematocrit (Bld) [Volume fraction] 30.9 % Critically low 36.0-48.0 [facility] Comment on above: Performed By: #### C BC #### [facility] [address] [place] [address] Dr. Isi Forbes Hemoglobin (Bld) [Mass/Vol] 10.4 g/dL Critically low 12.0-16.0 [facility] Comment on above: Performed By: #### C BC #### [facility] [address] [place] [address] Dr. Isi Forbes MCH (RBC) [Entitic mass] 29.9 pg Normal 26.7-34.0 [facility] Comment on above: Performed By: #### C BC #### [facility] [address] [place] [address] Dr. Isi Forbes MCHC (RBC) [Mass/Vol] 33.7 g/dL Normal 29.9-35.2 [facility] Comment on above: Performed By: #### C BC #### [facility] [address] [address] [address] Isi Forbes MCV (RBC) [Entitic vol] 88.8 fL Normal 81.0-99.0 [facility] Comment on above: Performed By: #### C BC #### [facility] [address] [address] [address] Isi Forbes PLT 300 103/ul Normal 150-450 [facility] Comment on above: Performed By: #### C BC #### [facility] [address] [address] [address] Isi Forbes RBC 3.48 106/ul Critically low 4.20-5.40 [facility] Comment on above: Performed By: #### C BC #### [facility] [address] [address] [address] Isi Forbes WBC 10.1 103/ul Normal 4.0-11.0 [facility] Comment on above: Performed By: #### C BC #### [facility] [address] [address] [address] Isi Forbes US PREG ANATOMY SINGLEon [...] by: ASHLEE STOVER Date: 2022-08-04 16:06 Normal [facility] PAP ACOG PANEL 2: 30 to 65on 07-25-2022 . . Normal [facility] Comment on above: Result Comment: Perf ormed at: [facility] Performed By: #### G TT3P #### [facility] [address] [place] [address] Dr. Isi Forbes Age Gdln ACOG Testing 30-65 Normal [facility] Comment on above: Performed By: #### G TT3P #### [facility] [address] [address] [address] Isi Forbes DIAGNOSIS: Comment Normal [facility] Comment on above: Result Comment: NEGA TIVE FOR INTRAEPITHELIAL LESION OR MALIGNANCY. Performed at: [facility] Performed By: #### G TT3P #### [facility] [address] [address] [address] Isi Forbes HPV Aptima Negative Normal Negative [facility] Comment on above: Result Comment: This nucleic acid amplification test detects fourteen high-risk HPV types (16,18,31,33,35,39,45,51,52,56,58,59,66,68) without differentiation. Performed at: =G Performed By: #### G TT3P #### [facility] [address] [address] [address] Isi Forbes HPV Genotype Reflex Comment Normal [facility] Comment on above: Result Comment: Crit eria not met, HPV Genotype not performed. Performed at: [facility] Performed By: #### G TT3P #### [facility] [address] [place] [address] Dr. Isi Forbes Methodology: Comment Normal [facility] Comment on above: Result Comment: This liquid based ThinPrep(R) pap test was screened with the use of an image guided system. Performed at: [facility] Performed By: #### G TT3P #### [facility] [address] [place] [address] Dr. Isi Forbes Note: Comment Normal [facility] Comment on above: Result Comment: The Pap [...] By: #### G TT3P #### [facility] [address] [place] [address] Dr. Isi Forbes Performed by: Comment Normal [facility] Comment on above: Result Comment: Mikki Good, Intellectual Property Legal Assistant (ASCP) Performed at: [facility] Performed By: #### G TT3P #### [facility] [address] [place] [address] Dr. Isi Forbes Specimen adequacy: Comment Normal [facility] Comment on above: Result Comment: Sati sfactory for evaluation. Endocervical and/or squamous metaplastic cells (endocervical component) are present. Performed at: [facility] Performed By: #### G TT3P #### [facility] [address] [place] [address] Dr. Isi Forbes CHLAMYDIA/GONOCOCCUS SARA (SW AB/URINE/PAPon 07-23-2022 Chlamydia trachomatis, SARA Negative Normal Negative [facility] Comment on above: Performed By: #### C BC #### [facility] [address] [place] [address] Dr. Isi Forbes Neisseria gonorrhoeae, SARA Negative Normal Negative [facility] Comment on above: Performed By: #### C BC #### [facility] [address] [address] [address] Isi Forbes CBC AUTO DIFFon 06-16-2022 BASO # 0.1 103/ul Normal 0.0-0.1 [facility] Comment on above: Performed By: #### G TT3P #### [facility] [address] [place] [address] Dr. Isi Forbes Basophils/100 WBC (Bld) 0.5 % Normal 0.2-2.0 [facility] Comment on above: Performed By: #### G TT3P #### [facility] [address] [place] [address] Dr. Isi Forbes EO # 0.1 103/ul Normal 0.0-0.7 [facility] Comment on above: Performed By: #### G TT3P #### [facility] [address] [place] [address] Dr. Isi Forbes Eosinophils/100 WBC (Bld) 1.2 % Normal 0.9-7.0 [facility] Comment on above: Performed By: #### G TT3P #### [facility] [address] [place] [address] Dr. Isi Forbes Erythrocyte distribution width (RBC) [Ratio] 12.7 % Normal 11.0-15.0 [facility] Comment on above: Performed By: #### G TT3P #### [facility] [address] [place] [address] Dr. Isi Forbes Hematocrit (Bld) [Volume fraction] 33.0 % Critically low 36.0-48.0 [facility] Comment on above: Performed By: #### G TT3P #### [facility] [address] [place] [address] Dr. Isi Forbes Hemoglobin (Bld) [Mass/Vol] 11.3 g/dL Critically low 12.0-16.0 [facility] Comment on above: Performed By: #### G TT3P #### [facility] [address] [place] [address] Dr. Isi Forbes IG # 0.06 10e3/ul Critically high 0.00-0.03 [facility] Comment on above: Performed By: #### G TT3P #### [facility] [address] [address] [address] Isi Forbes IG % 0.6 % Critically high 0.0-0.5 [facility] Comment on above: Performed By: #### G TT3P #### [facility] [address] [address] [address] Isi Forbes LYMPH # 2.0 103/ul Normal 1.2-3.8 [facility] Comment on above: Performed By: #### G TT3P #### [facility] [address] [place] [address] Dr. Isi Forbes Lymphocytes/100 WBC (Bld) 20.0 % Critically low 20.5-60.0 [facility] Comment on above: Performed By: #### G TT3P #### [facility] [address] [place] [address] Dr. Isi Forbes MANUAL DIFF REQ NO Normal [facility] Comment on above: Performed By: #### G TT3P #### [facility] [address] [place] [address] Dr. Isi Forbes MCH (RBC) [Entitic mass] 31.1 pg Normal 26.7-34.0 [facility] Comment on above: Performed By: #### G TT3P #### [facility] [address] [place] [address] Dr. Isi Forbes MCHC (RBC) [Mass/Vol] 34.2 g/dL Normal 29.9-35.2 [facility] Comment on above: Performed By: #### G TT3P #### [facility] [address] [place] [address] Dr. Isi Forbes MCV (RBC) [Entitic vol] 90.9 fL Normal 81.0-99.0 [facility] Comment on above: Performed By: #### G TT3P #### [facility] [address] [place] [address] Dr. Isi Forbes MONO # 0.6 103/ul Normal 0.3-0.8 [facility] Comment on above: Performed By: #### G TT3P #### [facility] [address] [address] [address] Isi Forbes Monocytes/100 WBC (Bld) 6.0 % Normal 1.7-12.0 [facility] Comment on above: Performed By: #### G TT3P #### [facility] [address] [address] [address] Isi Forbes NEUT # 7.2 103/ul Critically high 1.4-6.5 [facility] Comment on above: Performed By: #### G TT3P #### [facility] [address] [address] [address] Isi Forbes Neutrophils/100 WBC (Bld) 71.7 % Normal 43.0-75.0 [facility] Comment on above: Performed By: #### G TT3P #### [facility] [address] [place] [address] Dr. Isi Forbes Platelet mean volume (Bld) [Entitic vol] 9.5 fL Normal 9.5-13.5 [facility] Comment on above: Performed By: #### G TT3P #### [facility] [address] [place] [address] Dr. Isi Forbes PLT 244 103/ul Normal 150-450 [facility] Comment on above: Performed By: #### G TT3P #### [facility] [address] [place] [address] Dr. Isi Forbes RBC 3.63 106/ul Critically low 4.20-5.40 [facility] Comment on above: Performed By: #### G TT3P #### [facility] [address] [place] [address] Dr. Isi Forbes WBC 10.0 103/ul Normal 4.0-11.0 [facility] Comment on above: Performed By: #### G TT3P #### [facility] [address] [place] [address] Dr. Isi Forbes ER URINE PROFILEon 2 Bilirubin Ql (U) Negative Normal NEGATIVE [facility] Comment on above: Performed By: #### G TT3P #### [facility] [address] [place] [address] Dr. Isi Forbes Clarity (U) CLEAR Normal CLEAR [facility] Comment on above: Performed By: #### G TT3P #### [facility] [address] [place] [address] Dr. Isi Forbes Color (U) LT. YELLOW Normal YELLOW [facility] Comment on above: Performed By: #### G TT3P #### [facility] [address] [place] [address] Dr. Isi GOOD A micrscopic examination will be performed if indicated. Normal [facility] Comment on above: Performed By: #### G TT3P #### [facility] [address] [place] [address] Dr. Isi Forbes Glucose Ql (U) Negative Normal NEGATIVE [facility] Comment on above: Performed By: #### G TT3P #### [facility] [address] [place] [address] Dr. Isi Forbes Hemoglobin Ql (U) Negative Normal NEGATIVE [facility] Comment on above: Performed By: #### G TT3P #### [facility] [address] [place] [address] Dr. Isi Forbes Ketones Ql (U) Negative Normal NEGATIVE [facility] Comment on above: Performed By: #### G TT3P #### [facility] [address] [place] [address] Dr. Isi Forbes LEUKOCYTES TRACE Abnormal NEGATIVE [facility] Comment on above: Performed By: #### G TT3P #### [facility] [address] [place] [address] Dr. Isi Forbes Nitrite Ql (U) Negative Normal NEGATIVE [facility] Comment on above: Performed By: #### G TT3P #### [facility] [address] [place] [address] Dr. Isi Forbes pH (U) 7.0 [pH] Normal 5-9 [facility] Comment on above: Performed By: #### G TT3P #### [facility] [address] [place], [place] [id number] Dr. Isi Forbes SPEC GRAVITY 1.020 Normal 1.005-<=1.025 [facility] Comment on above: Performed By: #### G TT3P #### [facility] [address] [place] [address] Dr. Isi Forbes UA PROTEIN Negative Normal NEGATIVE/ TRACE [facility] Comment on above: Performed By: #### G TT3P #### [facility] [address] [place] [address] Dr. Isi Forbes UR MICRO IND INDICATED Normal [facility] Comment on above: Performed By: #### G TT3P #### [facility] [address] [place] [address] Dr. Isi Forbes Urobilinogen Qn (U) 0.2 {Barb'U}/dL Normal 0.2 - 1. 0 [facility] Comment on above: Performed By: #### G TT3P #### [facility] [address] [place] [address] Dr. Isi Forbes PROF CHEM 8 (BAS METB)on Anion gap [Moles/Vol] 11.8 mmol/L Normal [facility] Comment on above: Performed By: #### G TT3P #### [facility] [address] [place] [address] Dr. Isi Forbes Calcium [Mass/Vol] 8.8 mg/dL Normal 8.5-10.1 [facility] Comment on above: Performed By: #### G TT3P #### [facility] [address] [place] [address] Dr. Isi Forbes Chloride [Moles/Vol] 102 mmol/L Normal 98-107 [facility] Comment on above: Performed By: #### G TT3P #### [facility] [address] [place] [address] Dr. Isi Forbes CO2 [Moles/Vol] 26.9 mmol/L Normal 21.0-32.0 [facility] Comment on above: Performed By: #### G TT3P #### [facility] [address] [place] [address] Dr. Isi Forbes Creatinine [Mass/Vol] 0.42 mg/dL Critically low 0.55-1.02 [facility] Comment on above: Performed By: #### G TT3P #### [facility] [address] [place] [address] Dr. Isi Forbes EGFR-AF TURKISH >60 Normal >=60 [facility] Comment on above: Performed By: #### G TT3P #### [facility] [address] [address] [address] Isi Forbes EGFR-NON AF TURKISH >60 Normal >=60 [facility] Comment on above: Performed By: #### G TT3P #### [facility] [address] [place] [address] Dr. Isi Forbes Glucose [Mass/Vol] 86 mg/dL Normal 74-106 [facility] Comment on above: Performed By: #### G TT3P #### [facility] [address] [place] [address] Dr. Isi Forbes Potassium [Moles/Vol] 3.7 mmol/L Normal 3.5-5.1 [facility] Comment on above: Performed By: #### G TT3P #### [facility] [address] [place] [address] Dr. Isi Forbes Sodium [Moles/Vol] 137 mmol/L Normal 136-145 [facility] Comment on above: Performed By: #### G TT3P #### [facility] [address] [place] [address] Dr. Isi Forbes Urea nitrogen [Mass/Vol] 9.0 mg/dL Normal 7.0-18.0 [facility] Comment on above: Performed By: #### G TT3P #### [facility] [address] [place] [address] Dr. Isi Forbes Urea nitrogen/Creatinine [Mass ratio] 21.4 mg/mg Normal [facility] Comment on above: Performed By: #### G TT3P #### [facility] [address] [place] [address] Dr. Isi Forbes URINE MICROSCOPIC ONLYon BACTERIA TRACE Abnormal NONE SEEN [facility] Comment on above: Performed By: #### C BC #### [facility] [address] [place] [address] Dr. Isi Forbes Bacteria identified Cx Nom (U) NOT INDICATED Normal [facility] Comment on above: Performed By: #### C BC #### [facility] [address] [place] [address] Dr. Isi Forbes CAST NONE SEEN Normal NONE SEEN [facility] Comment on above: Performed By: #### C BC #### [facility] [address] [place] [address] Dr. Isi Forbes Crystals LM Nom (Urine sed) NONE SEEN Normal NONE SEEN [facility] Comment on above: Performed By: #### C BC #### [facility] [address] [place] [address] Dr. Isi Forbes Epithelial cells LM Ql (Urine sed) MODERATE Abnormal NONE SEEN /RARE [facility] Comment on above: Performed By: #### C BC #### [facility] [address] [place] [address] Dr. Isi Forbes MUCOUS NONE SEEN Normal NONE SEEN [facility] Comment on above: Performed By: #### C BC #### [facility] [address] [place] [address] Dr. Isi Forbes RBC NONE SEEN Abnormal 0-2 [facility] Comment on above: Performed By: #### C BC #### [facility] [address] [place] [address] Dr. Isi Forbes WBC 2-5 Abnormal NONE SEEN [facility] Comment on above: Performed By: #### C BC #### [facility] [address] [place] [address] Dr. Isi Forbes HEP B SURFACE ANTIGEN SCREEN on 06-05-2022 HBsAg Screen Negative Normal Negative [facility] Comment on above: Performed By: #### H BSANS #### [facility] [address] [place] [address] Dr. Isi Forbes HEPATITIS C VIRUS AB W/ REFL EX QUANTon 06-05-2022 HCV AB 0.1 s/co ratio Normal 0.0-0.9 [facility] Comment on above: Performed By: #### G TT3P #### [facility] [address] [place] [address] Dr. Isi Forbes Interpretation: Comment Normal [facility] Comment on above: Result Comment: Nega tive Not infected with HCV, unless recent infection is suspected or other evidence exists to indicate HCV infection. Performed By: #### G TT3P #### [facility] [address] [place] [address] Dr. Isi Forbes HIV 1 AND 2 WITH REFLEXon HIV Screen 4th Generation wRfx Non-Reactive Normal Non Reactive [facility] Comment on above: Result Comment: HIV Negative HIV-1/HIV-2 antibodies and HIV-1 p24 antigen were NOT detected. There is no laboratory evidence of HIV infection. Performed By: #### C BC #### [facility] [address] [place] [address] Dr. Isi Forbes RPR QUANTon 06-05-2022 Rapid Plasma Reagin, Quant Non-Reactive Normal NonRea<1:1 [facility] Comment on above: Result Comment: Plea se Note: This test does not meet current guidelines for screening and diagnosis of syphilis. This test is intended for following treatment response in patients being treated for syphilis infection. To screen for syphilis infection, a reflex cascade that includes both RPR and a treponema-specific assay should be utilized, such as Treponema pallidum (Syphilis) Screening Lucas (321520) or Rapid Plasma Reagin (RPR) Test With Reflex to Quantitative RPR and Confirmatory Treponema pallidum Antibodies (197948). Performed By: #### R PRQ #### [facility] [address] [place] [address] Dr. Isi Forbes RUBELLA AB IGGon 06-05-2022 Rubella Antibodies, IgG 6.87 index Normal Immune >0.99 [facility] Comment on above: Result Comment: Non- immune <0.90 Equivocal 0.90 - 0.99 Immune >0.99 Performed By: #### R PRQ #### [facility] [facility] [address] [place] [address] Dr. Isi Forbes CBC AUTO DIFFon 06-04-2022 BASO # 0.0 103/ul Normal 0.0-0.1 [facility] Comment on above: Performed By: #### C BC #### [facility] [address] [place] [address] Dr. Isi Forbes Basophils/100 WBC (Bld) 0.5 % Normal 0.2-2.0 [facility] Comment on above: Performed By: #### C BC #### [facility] [address] [place] [address] Dr. Isi Forbes EO # 0.1 103/ul Normal 0.0-0.7 [facility] Comment on above: Performed By: #### C BC #### [facility] [address] [place] [address] Dr. Isi Forbes Eosinophils/100 WBC (Bld) 1.5 % Normal 0.9-7.0 [facility] Comment on above: Performed By: #### C BC #### [facility] [address] [place] [address] Dr. Isi Forbes Erythrocyte distribution width (RBC) [Ratio] 12.1 % Normal 11.0-15.0 [facility] Comment on above: Performed By: #### C BC #### [facility] [address] [place] [address] Dr. Isi Forbes Hematocrit (Bld) [Volume fraction] 35.3 % Critically low 36.0-48.0 [facility] Comment on above: Performed By: #### C BC #### [facility] [address] [place] [address] Dr. Isi Forbes Hemoglobin (Bld) [Mass/Vol] 12.2 g/dL Normal 12.0-16.0 [facility] Comment on above: Performed By: #### C BC #### [facility] [address] [place] [address] Dr. Isi Forbes IG # 0.03 10e3/ul Normal 0.00-0.03 [facility] Comment on above: Performed By: #### C BC #### [facility] [address] [place] [address] Dr. Isi Forbes IG % 0.3 % Normal 0.0-0.5 [facility] Comment on above: Performed By: #### C BC #### [facility] [address] [place] [address] Dr. Isi Forbes LYMPH # 1.7 103/ul Normal 1.2-3.8 [facility] Comment on above: Performed By: #### C BC #### [facility] [address] [place] [address] Dr. Isi Forbes Lymphocytes/100 WBC (Bld) 20.1 % Critically low 20.5-60.0 [facility] Comment on above: Performed By: #### C BC #### [facility] [address] [place] [address] Dr. Isi Forbes MANUAL DIFF REQ NO Normal [facility] Comment on above: Performed By: #### C BC #### [facility] [address] [place] [address] Dr. Isi Forbes MCH (RBC) [Entitic mass] 30.7 pg Normal 26.7-34.0 [facility] Comment on above: Performed By: #### C BC #### [facility] [address] [place] [address] Dr. Isi Forbes MCHC (RBC) [Mass/Vol] 34.6 g/dL Normal 29.9-35.2 [facility] Comment on above: Performed By: #### C BC #### [facility] [address] [place] [address] Dr. Isi Forbes MCV (RBC) [Entitic vol] 88.9 fL Normal 81.0-99.0 [facility] Comment on above: Performed By: #### C BC #### [facility] [address] [place] [address] Dr. Isi Forbes MONO # 0.5 103/ul Normal 0.3-0.8 [facility] Comment on above: Performed By: #### C BC #### [facility] [address] [place] [address] Dr. Isi Forbes Monocytes/100 WBC (Bld) 5.4 % Normal 1.7-12.0 [facility] Comment on above: Performed By: #### C BC #### [facility] [address] [place] [address] Dr. Isi Forbes NEUT # 6.2 103/ul Normal 1.4-6.5 [facility] Comment on above: Performed By: #### C BC #### [facility] [address] [place] [address] Dr. Isi Forbes Neutrophils/100 WBC (Bld) 72.2 % Normal 43.0-75.0 [facility] Comment on above: Performed By: #### C BC #### [facility] [address] [place] [address] Dr. Isi Forbes Platelet mean volume (Bld) [Entitic vol] 9.4 fL Critically low 9.5-13.5 [facility] Comment on above: Performed By: #### C BC #### [facility] [address] [place] [address] Dr. Isi Forbes PLT 257 103/ul Normal 150-450 [facility] Comment on above: Performed By: #### C BC #### [facility] [address] [place] [address] Dr. Isi Forbes RBC 3.97 106/ul Critically low 4.20-5.40 [facility] Comment on above: Performed By: #### C BC #### [facility] [address] [place] [address] Dr. Isi Forbes WBC 8.6 103/ul Normal 4.0-11.0 [facility] Comment on above: Performed By: #### C BC #### [facility] [address] [place] [address] Dr. Isi Forbes CULTURE URINEon 06-04-2022 CULTURE URINE Culture Observations : LIGHT GROWTH OF MIXED GENITAL ALOK. NO POTENTIAL PATHOGENS SEEN. Normal [facility] Comment on above: Performed By: #### U RCX #### [facility] [address] [place] [address] Dr. Isi Forbes DRUG SCREEN RAPID (URINE)on 06-04-2022 AMP Negative Normal NEGATIVE [facility] Comment on above: Performed By: #### G TT3P #### [facility] [address] [place] [address] Dr. Isi Forbes BAR Negative Normal NEGATIVE [facility] Comment on above: Performed By: #### G TT3P #### [facility] [address] [place] [address] Dr. Isi Forbes BUP Negative Normal NEGATIVE [facility] Comment on above: Performed By: #### G TT3P #### [facility] [address] [place] [address] Dr. Isi Forbes BZO Negative Normal NEGATIVE [facility] Comment on above: Performed By: #### G TT3P #### [facility] [address] [place] [address] Dr. Isi Forbes BEATA Negative Normal NEGATIVE [facility] Comment on above: Performed By: #### G TT3P #### [facility] [address] [place] [address] Dr. Isi Forbes CUT-OFFS SEE BELOW Normal [facility] Comment on above: Result Comment: AMP (Amphetamine): [...] By: #### G TT3P #### [facility] [address] [place] [address] Dr. Isi Forbes DRUG CUT HEADER DRUG CLASS TEST SYSTEM CUT-OFF CONCENTRATIONS ARE FOLLOWS: Normal [facility] Comment on above: Performed By: #### G TT3P #### [facility] [address] [place] [address] Dr. Yilan Forbes mAMP Negative Normal NEGATIVE [facility] Comment on above: Performed By: #### G TT3P #### [facility] [address] [address] [address] Isi Forbes MTD Negative Normal NEGATIVE [facility] Comment on above: Performed By: #### G TT3P #### [facility] [address] [address] [address] Isi Forbes OPI Negative Normal NEGATIVE [facility] Comment on above: Performed By: #### G TT3P #### [facility] [address] [address] [address] Isi Forbes OXY Negative Normal NEGATIVE [facility] Comment on above: Performed By: #### G TT3P #### [facility] [address] [place] [address] Dr. Isi Forbes PCP Negative Normal NEGATIVE [facility] Comment on above: Performed By: #### G TT3P #### [facility] [address] [address] [address] Isi Forbes PPX Negative Normal NEGATIVE [facility] Comment on above: Performed By: #### G TT3P #### [facility] [address] [address] [address] Isi Forbes TCA Negative Normal NEGATIVE [facility] Comment on above: Performed By: #### G TT3P #### [facility] [address] [place] [address] Dr. Isi Forbes THC Positive Abnormal NEGATIVE [facility] Comment on above: Performed By: #### G TT3P #### [facility] [address] [place] [address] Dr. Isi Forbes GLYCOHEMOGLOBIN A1Con 2021 ADA RECOMMENDATION SEE BELOW Normal [facility] Comment on above: Result Comment: ADA RECOMMENDED LIMIT 4.0 - 6.0 ADA THERAPEUTIC TARGET < 7.0 ACTION SUGGESTED > 7.0 Performed By: #### A 1C #### [facility] [address] [place] [address] Dr. Isi Forbes Glucose [Mass/Vol] 111 mg/dL Normal [facility] Comment on above: Performed By: #### A 1C #### [facility] [address] [place], [place] [address] Dr. Isi Forbes HbA1c (Bld) [Mass fraction] 5.5 % Normal 4.5-6.2 [facility] Comment on above: Performed By: #### A 1C #### [facility] [address] [address] [address] Isi Forbes AUTUMN BOX TEST PT SEND OUTo n 06-04-2022 SENT TO REF LAB 06/04/2022 Normal [facility] Comment on above: Performed By: #### R PRQ #### [facility] [address] [address] [address] Isi Forbes TYPE AND SCREENon 06-04-2022 TYPE AND SCREEN Negative Normal [facility] Comment on above: Performed By: #### T NS #### [facility] [address] [address] [address] Isi Forbes US PREG TVon 05-18-2022 [...] by: FREDY DICK Date: 2022-05-18 05:51 Normal [facility] HCG,Urineon 11-04-2020 Beta HCG ( test) Ql (U) Negative Normal [facility] Comment on above: Result Comment: PERF ORMED BY: [address] [address] PATHOLOGIST STUDIO ASSISTANT MIKE LECHUGA M.D. Performed By: #### U HCG #### [address] [place] [address] [facility] 11-04-2020 L - -------- Specimen: Received: 11/04/20 Status: PRASAD Nick Num: [id number] Spec Type: Surgical Subm Dr: Esequiel Lyles MD Tissues: A Duodenum - Biopsy (DUODENAL BX) Procedures: HE Stain/2, Gross/Micro L4 -------- Patient Age/Sex Location Account Attending Physician -------- Debbi Prado 30/F [id number] Esequiel Lyles MD -------- SPEC NUM: RECD: 11/04/20 STATUS: PRASAD NICK NUM: [id number] LADAN: 11/04/20 [facility] [address]: Esequiel Lyles MD ENTERED: 11/04/20-[address] [facility] [address]: SPEC TYPE: Surgical DEPT: S REC BY: [id number] ORDERED: HE Stain/2, Gross/Micro L4 ORDERED: HE [...] Entirely submitted in one cassette labeled A1. (/Y) Microscopic Description Two glass slides with H E stained material have been examined. The microscopic findings support the above pathologic diagnosis. -------- Specimen: Received: 11/04/20 Status: PRASAD Nick Num: [id number] Spec Type: Surgical Subm Dr: Esequiel Lyles MD Tissues: A Duodenum - Biopsy (DUODENAL BX) Procedures: HE Stain/2, Gross/Micro L4 -------- Patient: Debbi Prado [id number] (Continued) -------- Specimen: Received: 11/04/20 (Continued) Signed (signature on file) Rhys Mckenzie MD 11/05/20 1050 -------- Specimen: Received: 11/04/20 Status: KRISTIEDmitriy Sandoval Num: [id number] Spec Type: Surgical Subm Dr: Esequiel Lyles MD Tissues: A Duodenum - Biopsy (DUODENAL BX) Procedures: HE Stain/2, Gross/Micro L4 -------- Patient: Debbi Prado [id number] (Continued) -------- Specimen: Received: 11/04/20 (Continued) CPT Codes 28341 -------- -------- Specimen: [id number] Received: 11/04/20 Status: PRASAD Slatersuzette Num: [id number] Spec Type: Surgical Subm Dr: Esequiel Lyles MD Tissues: A Duodenum - Biopsy (DUODENAL BX) Procedures: PAULINO Stain/2, Gross/Micro L4 -------- Patient: Debbi Prado [id number] (Continued) -------- Signed (signature on file) Rhys Mckenzie MD 11/05/20 1055 [facility] COVID-19 [facility] 10-31-2020 SARS-CoV-2 (COVID-19) RNA SARA+probe Ql (Unsp spec) Negative Normal Negative [facility] Comment on above: Order Comment: Healt hcare Worker?: N Result Comment: Refe rence: Negative Testing for SARS-CoV-2 by RT-PCR This test was developed and its performance characteristics determined by [employer] and validated at the [facility]. This test has not been FDA cleared [...] is terminated or revoked sooner. PERFORMED BY: [place] [address] PATHOLOGIST STUDIO ASSISTANT MIKE LECHUGA M.D. Performed By: #### C OVID-19 [facility] #### [address] Coding Summaryon 05-26-2020 Coding Summary CODING DATE: 05/26/2020 [facility] [place] STATUS: Home PAYOR: [employer] ADMIT DX: [...] Ashleigh Posada Date Saved: 05/26/2020 08:27 am Normal [facility] Consent Formson 05-26-2020 Consent Forms [id number] [facility] [place] 05-26-2020 Provider Orders [id number] [facility] 2019 Novel Coronavirus (CoVI D-19), SARA LCon 05-24-2020 SARS-CoV-2, SARA (COVID-19) LC Not Detected Not Detected [facility] Comment on above: Order Comment: [id number] [phone] Result Comment: This nucleic acid amplification test was developed and its performance characteristics determined by [employer]. Nucleic acid amplification tests include PCR and [...] detected) result in this assay. Performed At: [facility] [address] [facility] [place] [id number] Rere Bejarano MD Ph:[phone] Performed By: #### 6 [id number] ####[facility] (DEFAULT)[address] [place] [address] Progress Note - Nurseon Progress Note - Nurse Nasal swab perform ed without complication. Patient tolerated well. Education given. Patient verbalized understanding. [Electronically Signed on: 05/22/2020 11:25 EST] Genesis Ndiaye RN [Verified on: 05/22/2020 11:25 EST] Genesis Ndiaye RN [facility] Ambulatory Clinical Summaryo n 04-11-2020 Ambulatory Clinical Summary {[id number] [facility] Coding Summaryon 02-21-2020 Coding Summary CODING DATE: 02/21/2020 FINAL [facility] STATUS: Home PAYOR: [employer] ADMIT [...] Ashleigh Posada Date Saved: 02/21/2020 02:14 pm [facility] Consent Formson 02-18-2020 Consent Forms [id number] .00OTGTIFF [facility] 2019 Novel Coronavirus (CoVI D-19), SARA LCon 02-16-2020 SARS-CoV-2, SARA (COVID-19) LC Not Detected Not Detected [facility] Comment on above: Result Comment: This test was developed and its performance characteristics determined by [facility]. This test has not been FDA cleared [...] detected) result in this assay. Performed At: [facility] [address] [facility] [facility] [place] [id number] Rere Bejarano MD Ph:[phone] Performed By: #### 6 [id number] ####[facility] (DEFAULT)[address] [place] [address] Provider [place] 02-15-2020 Provider Orders [id number] .[facility] [place] 02-14-2020 Provider Orders [id number] [facility] IgA, Quant.on 02-13-2020 IgA [Mass/Vol] 202 mg/dL 87-352 [facility] Comment on above: Result Comment: Perf ormed at: [facility] [address] [place], [place] [id number] PhD Dennis Toussaint Performed By: #### 2 166731, 5090017, 60545451, 8295764, 13695237, 34614388, [id number] ####[facility] [place] [id number] [place] [address] t-TRANSGLUTAMINASE IgAon tTG IgA Qn (S) <2 0-3 [facility] Comment on above: Result Comment: Nega tive 0 - 3 Weak Positive 4 - 10 Positive >10 Tissue Transglutaminase (tTG) has been identified as the endomysial antigen. Studies have demonstr- ated that endomysial IgA antibodies have over 99% specificity for gluten sensitive enteropathy. Performed at: [facility] [address] [place], [place] [id number] PhD Dennis Toussaint Performed By: #### 2 716135, 7616100, 04286755, 5110327, 08054635, 84205742, 37917124 #### [facility] [place] [facility] [address] [place] [address] Coding Summary.on 02-12-2020 Coding Summary. 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 Performed By: #### 2 528629, 8632286, 84982953, 4096833, 39170297, 30931393, 24469877 #### [facility] [place] [facility] [address] [place] [address] Basophils/Leukocytes Auto (Bld) [Pure # fraction] 0.0 E9/L Normal 0.0-0.2 [facility] [place] Comment on above: Order Comment: Order Added by Discern Expert. Performed By: #### 2 697680, 3391394, 02052123, 7820136, 72078085, 07220813, 04242964 #### [facility] [place] [facility] [address] [place] [address] Eosinophils/100 WBC (Bld) 1.7 % Normal 0.0-8.0 [facility] [place] Comment on above: Order Comment: Order Added by Discern Expert. Performed By: #### 2 731662, 1711802, 13950209, 6348283, 74109698, 62230125, 98738574 #### [facility] [place] [facility] [address] [place] [address] Eosinophils/Leukocyte s Auto (Bld) [Pure # fraction] 0.2 E9/L Normal 0.0-0.5 [facility] [place] Comment on above: Order Comment: Order Added by Discern Expert. Performed By: #### 2 514474, 0796649, 13207025, 2247226, 86661098, 61120635, 07574591 #### [facility] [place] [facility] [address] [place] [address] Lymphocytes/100 WBC (Bld) 21.9 % Normal 14.0-50.0 [facility] [place] Comment on above: Order Comment: Order Added by Discern Expert. Performed By: #### 2 683941, 9484550, 17107482, 0362106, 74030057, 78582813, 47422548 #### [facility] [place] [facility] [address] [place] [address] Lymphocytes/Leukocyte s Auto (Bld) [Pure # fraction] 2.0 E9/L Normal 1.0-4.0 [facility] [place] Comment on above: Order Comment: Order Added by Discern Expert. Performed By: #### 2 221165, 3446089, 02268270, 6514549, 51405142, 59435445, 01832764 #### [facility] [place] [facility] [address] [place] [address] Monocytes/100 WBC (Bld) 7.6 % Normal 4.0-14.0 [facility] [place] Comment on above: Order Comment: Order Added by Discern Expert. Performed By: #### 2 050187, 7563322, 45548670, 0185770, 81197769, 72616367, 43637941 #### [facility] [place] [facility] [address] [place] [address] Monocytes/Leukocytes Auto (Bld) [Pure # fraction] 0.7 E9/L Normal 0.2-1.0 [facility] [place] Comment on above: Order Comment: Order Added by Discern Expert. Performed By: #### 2 869508, 0611166, 77016301, 3629706, 49162422, 07221643, 21718009 #### [facility] [place] [facility] [address] [place] [address] Neutrophils/100 WBC (Bld) 68.3 % Normal 36.0-75.0 [facility] [place] Comment on above: Order Comment: Order Added by Discern Expert. Performed By: #### 2 211111, 8014345, 04115174, 6057604, 33236065, 95464200, 99308679 #### [facility] [place] [facility] [address] [place] [address] Neutrophils/Leukocyte s Auto (Bld) [Pure # fraction] 6.2 E9/L Normal 2.0-7.5 [facility] [place] Comment on above: Order Comment: Order Added by Discern Expert. Performed By: #### 2 915895, 3181738, 44488269, 8375931, 95111427, 56763179, 53275454 #### [facility] [place] [facility] [address] [place] [address] CBC w/ Auto Diffon 0 Erythrocyte distribution width (RBC) [Ratio] 13.1 % Normal 10.9-14.2 [facility] [place] Comment on above: Performed By: #### 2 822374, 3286073, 44190204, 6050192, 64026993, 24027797, 72995715 #### [facility] [place] [facility] [address] [place] [address] Hematocrit (Bld) [Volume fraction] 41.8 % Normal 34.0-46.0 [facility] [place] Comment on above: Performed By: #### 2 963644, 5907008, 52274753, 6705880, 08926706, 76483065, 09323506 #### [facility] [place] [facility] [address] [place] [address] Hemoglobin (Bld) [Mass/Vol] 13.9 g/dL Normal 12.0-16.0 [facility] [place] Comment on above: Performed By: #### 2 711390, 9328813, 11936999, 7264049, 29554491, 34122718, 04457781 #### [facility] [place] [facility] [address] [place] [address] MCH (RBC) [Entitic mass] 30.7 pg Normal 27.0-34.0 [facility] [place] Comment on above: Performed By: #### 2 610756, 1766913, 15606668, 0853900, 33473075, 18043125, 99850263 #### [facility] [place] [facility] [address] [place] [address] MCHC (RBC) [Mass/Vol] 33.4 g/dL Normal 31.4-36.0 [facility] Comment on above: Performed By: #### 2 933048, 4986182, 78887010, 5342354, 32778560, 31174312, 80658300 #### [facility] [place] [facility] [address] [place] [address] MCV (RBC) [Entitic vol] 92.1 fL Normal 80.0-100.0 [facility] [place] Comment on above: Performed By: #### 2 178352, 5335194, 85161958, 5621025, 15391228, 52054756, 32085608 #### [facility] [place] [facility] [address] [place] [address] Platelet mean volume (Bld) [Entitic vol] 7.7 fL Normal 6.4-10.8 [facility] [place] Comment on above: Performed By: #### 2 203406, 1789522, 28850289, 8194846, 30251528, 61439820, 76196545 #### [facility] [place] [facility] [address] [place] [address] Platelets (Bld) [#/Vol] 338.0 E9/L Normal 150.0-500.0 [facility] [place] Comment on above: Performed By: #### 2 431686, 7707645, 10310917, 3942177, 56061088, 23678908, 56904585 #### [facility] [place] [facility] [address] [place] [address] RBC (Bld) [#/Vol] 4.5 E12/L Normal 4.3-5.9 [facility] [place] Comment on above: Performed By: #### 2 295976, 0506723, 98632987, 2294621, 89286941, 02552564, 34189327 #### [facility] [place] [facility] [address] [place] [address] WBC corrected for nucl RBC Auto (Bld) [#/Vol] 9.1 E9/L Normal 4.0-11.0 [facility] [place] Comment on above: Performed By: #### 2 914588, 5879095, 17768012, 6485382, 00172692, 34909496, 50167513 #### [facility] [place] [facility] [address] [place] [id number] [place] [address] 02-11-2020 Albumin [Mass/Vol] 1.4 g/dL Normal 1.1-2.2 [facility] [place] Comment on above: Performed By: #### 2 785285, 3384968, 41970285, 6386034, 41700976, 55907669, 50878147 #### [facility] [place] [facility] [address] [place] [address] Albumin [Mass/Vol] 4.5 g/dL Normal 3.3-5.0 [facility] [place] Comment on above: Performed By: #### 2 275324, 5957398, 47829258, [id number], [id number], [id number], [id number] #### [facility] [address] [place] [address] ALP [Catalytic activity/Vol] 58 Int._Unit/L Normal 21-98 [facility] Comment on above: Performed By: #### 2 492765, 1728592, 91330155, 2831422, 49650848, 27728026, 84023151 #### [facility] [address] [place] [address] ALT No additional P-5'-P [Catalytic activity/Vol] 33 Int._Unit/L Normal 6-46 [facility] Comment on above: Performed By: #### 2 501330, 6965860, 95351162, 7205327, 52467496, 13756986, 35652510 #### [facility] [address] [place] [address] Anion gap [Moles/Vol] 12 mmol/L Normal 6-16 [facility] Comment on above: Performed By: #### 2 524294, 2056475, 53533934, 5587595, 02752918, 40452538, 00461664 #### [facility] [address] [place] [address] AST [Catalytic activity/Vol] 22 Int._Unit/L Normal 5-43 [facility] Comment on above: Performed By: #### 2 397402, 9179182, 65526006, 0963378, 01423245, 82233364, 46796787 #### [facility] [address] [place] [address] Bilirubin [Mass/Vol] 0.5 mg/dL Normal 0.0-1.1 [facility] Comment on above: Performed By: #### 2 833310, 1855685, 68650543, 3263433, 51388404, 00596578, 31191480 #### [facility] [address] [place] [address] Calcium [Mass/Vol] 9.2 mg/dL Normal 8.9-11.1 [facility] Comment on above: Performed By: #### 2 765235, 9998847, 59869104, 3816891, 03545449, 66610446, 64614751 #### [facility] [address] [place] [address] Chloride [Moles/Vol] 106 mmol/L Normal 101-111 [facility] Comment on above: Performed By: #### 2 850630, 2376346, 33889834, 4227889, 43399627, 76478432, 04113070 #### [facility] [address] [place] [address] CO2 [Moles/Vol] 23 mmol/L Normal 21-31 [facility] Comment on above: Performed By: #### 2 261883, 5205757, 16512871, 2276595, 80872899, 92010182, 94240019 #### [facility] [address] [place] [address] Creatinine [Mass/Vol] 0.6 mg/dL Normal 0.5-1.3 [facility] Comment on above: Performed By: #### 2 389440, 6973978, 47189978, 7587870, 78083764, 64570008, 04964280 #### [facility] [address] [place] [address] Globulin (S) [Mass/Vol] 3.3 g/dL Normal 1.4-4.0 [facility] Comment on above: Performed By: #### 2 409196, 9864029, 01112447, 9688716, 52693894, 81728831, 18427779 #### [facility] [address] [place] [address] Glucose [Mass/Vol] 94 mg/dL Normal 55-199 [facility] Comment on above: Result Comment: If t his glucose result represents a fasting glucose, interpretation should refer to the following reference range: 55-99 mg/dL Performed By: #### 2 873021, 8218839, 71425234, 6015737, 34227361, 45910001, 38807576 #### [facility] [address] [place] [address] Potassium [Moles/Vol] 3.9 mmol/L Normal 3.5-5.3 [facility] Comment on above: Performed By: #### 2 650099, 1924125, 73582954, 3393178, 93556100, 16633339, 73735202 #### [facility] [address] [place] [address] Protein [Mass/Vol] 7.8 g/dL Normal 6.0-7.8 [facility] Comment on above: Performed By: #### 2 642613, 0959909, 36625241, 7757452, 70482023, 61206187, 97223501 #### [facility] [address] [place] [address] Sodium [Moles/Vol] 137 mmol/L Normal 135-145 [facility] Comment on above: Performed By: #### 2 268475, 3448348, 47230373, 0474909, 89423810, 72361118, 60293780 #### [facility] [address] [place] [address] Urea nitrogen [Mass/Vol] 12 mg/dL Normal 5-21 [facility] Comment on above: Performed By: #### 2 736497, 0127982, 82292964, 0991559, 90800021, 60449515, 13153535 #### [facility] [address] [place] [address] Urea nitrogen/Creatinine [Mass ratio] 20 No Units Normal 10-20 [facility] Comment on above: Performed By: #### 2 585618, 0609902, 63081229, 2582024, 77429601, 85276423, 55808205 #### [facility] [address] [place] [address] Coding Summaryon 02-11-2020 Coding Summary CODING DATE: 02/11/2020 [facility] STATUS: Home PAYOR: [employer] ADMIT DX: [...] Connie Akers Date Saved: 02/11/2020 08:49 am [facility] Consent for Treatmenton 01-16 Consent for Treatment [id number] .[id number]:127 Normal [facility] Gastroenterology Office/Clin ic Noteon 02-11-2020 Gastroenterology Office/Clinic [...] q8hr, # 20 tab(s), Refills(s) 1, Pharmacy: [id number], 167.64, cm, 02/11/20 15:12:00 EDT, Height/Length [...] day(s), # 120 cap(s), Refills(s) 11, Pharmacy: [id number], 167.64, cm, 02/11/20 15:12:00 EDT, Height/Length [...] day(s), # 20 tab(s), Refills(s) 0, Pharmacy: [facility]/pharmacy #[id number], 167.64, cm, 02/11/20 15:12:00 EDT, Height/Length Measured, 90.4, kg, 02/11/20 15:12:00 EDT, Weight Measured 6. Cyclic vomiting syndrome (R11.15: Cyclical vomiting syndrome unrelated to migraine) Advised to stop marijuana use Follow-up With When Contact Information Emma PARSONS MD Within 2 weeks [facility] [address] [place] [address], [place] [address]- Additional Instructions: Patient Education Nausea, Adult Problem [...] Family History Family history is negative Normal [facility] Comment on above: Result Comment: Elec tronically Signed By: Emma PARSONS MD\.br\Date and Time Signed: 02/11/20 15:55 EDT [...] Document Reviewed: 03/15/2012 ExitCare? Patient Information ?2013 Home-Account. Normal [facility] Sed Rate Automatedon 020 ESR (Bld) [Velocity] 10 mm/h Normal 0-34 [facility] Comment on above: Performed By: #### 2 537586, 7502933, 85689435, 7211421, 16776496, 56424036, 08525195 #### [facility] [address] [place] [address] eGFRon 02-11-2020 GFR/1.73 sq M predicted among blacks MDRD (S/P/Bld) [Vol rate/Area] mL/min/{1.73_m2} Normal >=59 [facility] Comment on above: Order Comment: Order added by Discern Expert. Result Comment: eGFR is race adjusted. AA=. Performed By: #### 2 893933, 4766736, 22883452, 3375737, 66520391, 35291200, 72704019 #### [facility] [address] [place] [address] GFR/1.73 sq M predicted among non-blacks MDRD (S/P/Bld) [Vol rate/Area] mL/min/{1.73_m2} Normal >=59 [facility] Comment on above: Order Comment: Order added by Discern Expert. Result Comment: Front Attendant eulogio kidney disease could be indicated at eGFR's of less than 60 mL/min/1.73m2. Kidney failure is indicated at less than 15 mL/min/1.73m2. Performed By: #### 2 979033, 2776881, 21698990, 2299512, 63907408, 57719882, 63955741 #### [facility] [address] [place] [address] Historical Records Officeon 02-08-2020 Historical Records Office [id number]. 00CD:127 Normal [facility] - Immunology/Serology Re sultson 01-31-2020 Lab - Immunology/Serology Results [id number] Normal [facility] SARS-CoV-2 (COVID-19) PCRon 01-30-2020 COVID-19 PCR Not Detected Normal Not Detected [facility] Comment on above: Order Comment: Sent to [facility] Performed By: #### 6 [id number] ####[facility] (DEFAULT)[address] [place] [address] Provider Orderson 01-29-2020 Provider Orders [id number] .[id number] Normal [facility] Vital Signs Date Time Vital Sign Value Performing Clinician Cheryl colindres 05-02-2024 13:46-0400 Body mass index (BMI) [Ratio] 33.08 kg/m2 Yeni ISAAC Work Phone: [facility] 05-02-2024 13:46-0400 Body weight 90.17 kg Yeni ISAAC Work Phone: [facility] 05-02-2024 13:46-0400 Diastolic blood pressure 80 mm[Hg] Yeni ISAAC Work Phone: [facility] 05-02-2024 13:46-0400 Systolic blood pressure 118 mm[Hg] Yeni ISAAC Work Phone: [facility] Encounters Encounter Date Encounter Type Care Provider Facility Start: 05-07-2024 End: 05-07-2024 Clinisync Result Encounter Becki Tu DO Work Phone: [facility] Unsolicited Start: 05-07-2024 End: 05-07-2024 Clinisync Result Encounter Becki Tu DO Work Phone: [facility] Unsolicited Start: 05-02-2024 End: 05-02-2024 Bamboo flowsheet Yeni ISAAC Work Phone: [facility] Start: 05-02-2024 End: 05-02-2024 Bamboo flowsheet Yeni ISAAC Work Phone: [facility] Start: 05-02-2024 End: 05-02-2024 ambulatory YENI CHANEY Not Available Start: 05-02-2024 End: 05-02-2024 flow sheet Yeni ISAAC Work Phone: [facility] Comment on above: Third trimester preg jade; 30 weeks gestation of ; Nausea and vomiting, unspecified vomiting type Start: 04-05-2024 End: 04-05-2024 ambulatory BECKI TU Not Available Start: 03-15-2024 End: 03-15-2024 ambulatory BECKI TU Not Available Start: 03-08-2024 End: 03-08-2024 ambulatory BECKI TU Not Available Start: 02-23-2024 End: 02-23-2024 ambulatory YENI RITU Not Available Start: 02-09-2024 End: 02-09-2024 ambulatory YNEI RITU Not Available Start: 01-24-2024 End: 01-24-2024 ambulatory BECKI TU Not Available Start: 01-20-2024 End: 01-21-2024 Emergency department patient visit JOSE LEONARDO [facility] Start: 01-20-2024 End: 01-20-2024 Emergency department patient visit [facility] Start: 01-12-2024 End: 01-12-2024 ambulatory BECKI TU Not Available Start: 12-15-2023 End: 12-15-2023 ambulatory BECKI TU Not Available Start: 11-25-2023 End: 11-25-2023 ambulatory BECKI TU Not Available Start: 10-06-2023 End: 10-06-2023 ambulatory BECKI TU Not Available Start: 08-08-2023 End: 08-08-2023 ambulatory BECKI TU Not Available Start: 06-23-2023 End: 06-23-2023 ambulatory BECKI UT Not Available Start: 12-09-2022 End: 12-11-2022 Evaluation [...] Date Procedure Procedure Detail Performing Clinician Start: 05-07-2024 [facility] UA (CLEAN/CATCH) 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 Becki Tu DO Work Phone: Start: 05-02-2024 Urnls dip stick/tabl et rgnt non-auto w/o micrscp Becki Mae DO Work Phone: Start: 12-09-2022 Extraction of Produc ts of Conception, Low Cervical, Open Approach DR MARIO MARTINEZ . Plan of Treatment Date Care Activity Detail Author Start: 05-16-2024 End: 05-16-2024 Patient encounter procedure 05/16/2024 2:20 PM EDT Routine [facility] [address] [place] [address] Yeni Chaney PA [address] [place], [place] [address] [facility] Payers Date Payer Category Payer [facility] BCBS [id number] 1988 Unknown [id number] 2.840.1.229378.3.57 9.259 1988 Unknown [id number] 2.840.1.958755.3.57 9.259 1988 Unknown [id number] 2.840.1.619736.3.57 9.259 1988 Unknown [id number] 2.16840.1.466215.3.57 9.259 1988 Unknown [id number] 2.16840.1.040148.3.57 9.259 1988 Unknown [id number] 2.16.840.1.606455.3.57 9.2.593 1988 Unknown [id number] 2.16.840.1.185874.3.57 9.2.593 1988 Unknown [id number] 2.16.840.1.912939.3.57 9.2.593 1988 Unknown [id number] 2.16.840.1.784836.3.57 9.2.593 1988 Unknown [id number] 2.16.840.1.821362.3.57 9.2.593 1988 Unknown [id number] 2.16.840.1.177284.3.57 9.2.593 1988 Unknown [id number] 2.16840.1.509385.3.57 9.2.1286 1988 Unknown [id number] 2.16840.1.987722.3.57 9.2.1259 1988 Unknown [id number] 2.16840.1.368119.3.57 9.2.1259 1988 Unknown [id number] 2.16840.1.628603.3.57 9.2.1259 1988 Unknown [id number] 2.16840.1.512880.3.57 9.2.1259 1988 Unknown [id number] 2.16840.1.769111.3.57 9.2.1259 1988 Unknown [id number] 2.16840.1.851085.3.57 9.2.1259 1988 Unknown [id number] 2.16840.1.548852.3.57 9.2.1259 1988 Unknown [id number] 2.16.840.1.192769.3.57 9.2.1259 1988 Unknown [id number] 2.16.840.1.048259.3.57 9.2.1259 1988 Unknown [id number] 2.16.840.1.609744.3.57 9.2.1259 1988 Unknown [id number] 2.16.840.1.028938.3.57 9.2.9 1988 Unknown [id number] 2.16.840.1.192920.3.57 9.2.9 1988 Unknown [id number] 2.16.840.1.169809.3.57 9.2.9 1959 Self-pay [id number] 1959 Unknown [id number] Unknown [id number] 2.16.840.1.382423.3.57 9.2.593 Social History Date Type Detail Facility Start: 06-13-2023 Tobacco smoking stat [facility] Ex-smoker [facility] Start: 07-18-2006 End: 01-15-2021 [...] Problems Diagnosis Date Noted Bipolar 1 disorder ([facility]) 01/20/2023 Anxiety with depression 01/20/2023 Fatty liver 01/20/2023 Generalized anxiety disorder ([facility]) 01/20/2023 Irregular menses 01/20/2023 Irritable bowel syndrome with diarrhea 01/20/2023 Mild chronic gastritis 01/20/2023 Grief at loss of child ([facility]) 10/06/2023 Persistent depressive disorder ([facility]) 10/06/2023 Syncope 03/15/2024 Low-lying placenta 03/15/2024 Dizziness 03/15/2024 Dehydration 03/15/2024 Migraine without status migrainosus, not intractable ([facility]) 03/15/2024 Irregular uterine contractions 03/15/2024 Chronic fatigue 04/05/2024 Resolved Ambulatory Problems Diagnosis Date Noted No Resolved Ambulatory Problems Past Medical History: Diagnosis Date Bipolar disorder ([facility]) Depression ([facility]) Herpes IBS (irritable bowel syndrome) Marijuana use Panic attack ([facility]) PTSD (post-traumatic stress disorder) ([facility]) 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) Thyroid enlargement ([facility]) HISTORY PAST MEDICAL HISTORY SOCIAL HISTORY Past Medical History: Diagnosis Date Bipolar disorder ([facility]) Depression ([facility]) Fatty liver Herpes IBS (irritable bowel syndrome) Irritable bowel syndrome with diarrhea Marijuana use Mild chronic gastritis Panic attack ([facility]) PTSD (post-traumatic stress disorder) ([facility]) 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) Thyroid enlargement ([facility]) Social History Tobacco Use Smoking status: Former [...] nursing note reviewed. Exam conducted with a quality assurance coordinator present. Vitals: Estimated body mass index is [...] of: MARLIN Pineda documented in this encounter [facility] Clinical Note 12-09-2022 Note Date & Type [...] Spinal with Duramorph. SURGEON: Becki Mae D.O. FRAME FEEDER: DANIELA Koch URINE OUTPUT: Yellow and clear. [...] Room in stable condition. [facility] Evaluation note Note Date & Type Note [...] section and content) DATE CREATED AUTHOR 04/24/2020 [facility] DATE CREATED AUTHOR AUTHOR'S ORGANIZ ATION 05/26/2020 [facility] DATE CREATED AUTHOR AUTHOR'S ORGANIZ ATION 08/02/2021 [facility] DATE CREATED AUTHOR AUTHOR'S ORGANIZ ATION 12/24/2022 [facility] DATE CREATED AUTHOR AUTHOR'S ORGANIZ ATION 01/21/2024 [facility] DATE CREATED AUTHOR AUTHOR'S ORGANIZ ATION 05/04/2024 [facility] EP[employer] Care Teams (unrecognized sec tion and content) Joy Operator Relationship Specialty Start Date End Date LizbethJanice waiteDO [address] [place] [address] PCP - General Family Medicine 12/20/22 Joy Operator Relationship Specialty Start Date End Date Janice Dinero [address] [place] [address] PCP - General Family Medicine 12/20/22 Joy Operator Relationship Specialty Start Date End Date Janice Dinero [address] [place], [place] [id number] PCP - General Family Medicine 12/20/22 Reason [...] BE BASED ON THE PRIMARY CLINICAL RECORDS. [facility] [employer] provides no warranty or guarantee of the accuracy or completeness of information in this document.
[2024-05-16 15:31] LABS: Basophils Absolute Auto 0.1 10^3/uL (0.0-0.1); Basophils Percent Auto 0.4 % (0.2-2.0); Eosinophils Absolute Auto 0.1 10^3/uL (0.0-0.7); Hematocrit 30.1 % (36.0-48.0); Hemoglobin 9.1 g/dL (12.0-16.0); Immature Granulocytes Abs Auto 0.43 10^3/uL (0.00-0.03); Immature Granulocytes Pct Auto 3.2 % (0.0-0.5); Lymphocytes Absolute Auto 2.3 10^3/uL (1.2-3.8); Mean Corpuscular HGB Conc 30.2 g/dL (29.9-35.2); Mean Corpuscular Hemoglobin 24.5 pg (26.7-34.0); Mean Corpuscular Volume 81.1 fL (81.0-99.0); Mean Platelet Volume 9.8 fL (9.5-13.5); Monocytes Absolute Auto 1.1 10^3/uL (0.3-0.8); Monocytes Percent Auto 8.1 % (1.7-12.0); Neutrophils Absolute Auto 9.5 10^3/uL (1.4-6.5); Neutrophils Percent Auto 70.3 % (43.0-75.0); Platelet Count 313 10^3/uL (150-450); Red Blood Count 3.71 10^6/uL (4.20-5.40); White Blood Count 13.5 10^3/uL (4.0-11.0)
[2024-05-16 15:46] LABS: Aspartate Amino Transferase 15 U/L (15-37); Estimated GFR (African America >60 (>=60 mL/min/1.73m^2); Estimated GFR (Non-African Ame >60 (>=60 mL/min/1.73m^2); Lactate Dehydrogenase 155 U/L (81-234); Uric Acid 4.1 mg/dL (2.6-6.0)
[2024-05-16 15:53] LABS: Partial Thromboplastin Time 21.4 sec (22.3-36.2); Prothrombin Time 9.8 sec (9.0-11.6)
[2024-05-16 15:54] LABS: INR <0.93
== END 2024-05-16 15:08 | disposition home or self-care (01) ==
LOC: LAB 15:09
PROVIDERS: PCP Family Medicine; Visit Provider Obstetrics & Gynecology
DX: O13.9 Gestational [pregnancy-induced] hypertension without significant proteinuria, unspecified trimester (principal)
CPT/HCPCS: 36415; 82565; 83615; 84450; 84520; 84550; 85025; 85610; 85730

== ENCOUNTER 2024-05-18 14:28 | Outpatient (REF) | payer BC, SELFPAY ==
--- OUTSIDE RECORDS SUMMARY | 2024-05-18 14:50 | XMS_ITS | CCD ---
Author Organization [facility] Care Team Providers [facility] Manager Name Role Phone JUAN ., DR [...] ., MERRY Consulting Unavailable REINECK, DR MARKUS Turenr Consulting Unavailabl e REINECK, DR MARKUS Turner [...] ZIEBER, DR FREDY Copeland Consulting Unavailable SERVICES, [facility] Unava ilable RALPH CISNEROS Attending Unavailable JOSE LEONARDO Attending Unavailable JOSE LEONARDO Referring Unavailable SERVICES, [facility] Unava ilable Janice Dinero DO Primary Care Provider TU, BECKI Attending Unavailable TU, BECKI Attending Unavailable TU, BECKI Attending Unavailable TU, BECKI Attending Unavailable TU, BECKI Attending Unavailable TU, BECKI Attending Unavailable RITU, YENI Attending Unavailable RITU, YENI Attending Unavailable TU, BECKI Attending Unavailable TU, BECKI Attending Unavailable TU, BECKI Attending Unavailable RITU, YENI Attending Unavailable RITU, YENI Attending Unavailable Allergies Allergy Classification Reported Allergen(s) Allergy Type Date of Onset Reaction(s) Facility Macrolides (antibiotic) (1 source) Azithromycin; Translations: [AZITHROMYCIN] Drug Allergy 7 [facility] (1 source) Azithromycin Drug Allergy 4 [facility] (8 sources) Azithromycin Drug Allergy 7 Hives, Itching [facility] Work Phone: Medications Current Medications Medication Drug Class(es) Dates Sig (Normalized) Sig (Original) Magnesium (3 sources) Start: 05-16-2024 End: 06-15-2024 take 1 tablet by mouth once daily magnesium 200 MG tablet Indications: Nonintractable headache, unspecified chronicity pattern, unspecified headache type Take 1 tablet (200 mg) by mouth Daily 30 tablet 1 05/16/2024 06/15/2024 Active ondansetron 4 mg disintegrating oral tablet (20 sources) Serotonin-3 Receptor Antagonist Start: 04-05-2024 take [...] tablet 3 04/05/2024 Active Start: 05-17-2022 End: 06-15-2024 take 1 tablet by mouth every six hours for nausea ondansetron ODT (Zofran-ODT) 4 MG disintegrating tablet Indications: Nausea and vomiting in Take 1 tablet (4 mg) by mouth every 6 (six) hours if needed for nausea or vomiting 30 tablet 2 05/16/2024 06/15/2024 Active polysaccharide iron complex 391 mg oral capsule (3 sources) Start: 04-05-2024 End: 05-05-2024 take 1 capsule by mouth once daily iron polysaccharides (ProFe) 391.3 (180 Fe) MG capsule Indications: 26 weeks gestation of , Chronic fatigue Take 1 capsule (391.3 mg) by mouth Daily 30 capsule 6 04/05/2024 05/05/2024 Active valACYclovir 500 mg oral tablet (3 sources) Herpesvirus Nucleoside Analog DNA Polymerase Inhibitor, Herpes Simplex Virus Nucleoside Analog DNA Polymerase Inhibitor, Herpes Zoster Virus Nucleoside Analog DNA Polymerase Inhibitor Start: 05-16-2024 End: 11-12-2024 take 1 tablet by mouth once daily valACYclovir (Valtrex) 500 MG tablet Indications: Exposure to STD Take 1 tablet (500 mg) by mouth Daily 30 tablet 5 05/16/2024 11/12/2024 Active Problems Active Problems Problem Classification Problem Date Documented Da te Episodic/Chronic Adjustment disorders (8 sources) Grief finding; Translations: [Adjustment disorder with depressed mood] Onset: 10-06-2023 10-06-2023 Chronic Anxiety disorders (16 sources) Mixed anxiety and depressive disorder; Translations: [Other specified anxiety disorders] Onset: 01-20-2023 08-08-2023 Chronic Conditions associated with dizziness or vertigo (8 sources) Dizziness; Translations: [Dizziness and giddiness] Onset: 03-15-2024 03-15-2024 Episodic Diabetes mellitus without complication (1 source) Other abnormal glucose; Translations: [OTHER ABNORMAL GLUCOSE] Onset: 10-31-2022 Episodic Diabetes or abnormal glucose tolerance complicating ; childbirth; or the puerperium (4 sources) Abnormal glucose complicating ; Translations: [ABNORMAL GLUCOSE COMP ] Onset: 10-26-2022 Episodic E Codes: Fall (1 source) Fall Onset: 01-20-2024 Early or threatened labor (12 sources) False labor before 37 completed weeks of gestation, third trimester; Translations: [Irregular uterine contractions] Onset: 10-27-2022 Episodic Fluid and electrolyte disorders (8 sources) Dehydration; Translations: [Dehydration] Onset: 03-15-2024 03-15-2024 Episodic Gastritis and duodenitis (8 sources) Chronic gastritis; Translations: [Unspecified chronic gastritis without bleeding] Onset: 01-20-2023 01-20-2023 Chronic Headache; including migraine (8 sources) Migraine; Translations: [Migraine, unspecified, not intractable, without status migrainosus] Onset: 03-15-2024 03-15-2024 Chronic Headache; including migraine (2 sources) Headache; Translations: [Nonintractable headache, unspecified chronicity pattern, unspecified headache type] 05-16-2024 Episodic Hemorrhage during ; abruptio placenta; placenta previa (8 sources) Low lying placenta; Translations: [Low lying placenta NOS or without hemorrhage, unspecified trimester] Onset: 03-15-2024 03-15-2024 Episodic Hypertension complicating ; childbirth and the puerperium (2 sources) -induced hypertension; Translations: [Gestational [-induced] hypertension without significant proteinuria, unspecified trimester] 05-16-2024 Episodic Immunizations and screening for infectious disease (3 sources) Encounter for screening for human papillomavirus (HPV); Translations: [Exposure to sexually transmissible disorder] Onset: 07-23-2022 05-16-2024 Episodic Malaise and fatigue (8 sources) Fatigue; Translations: [Chronic fatigue, unspecified] Onset: 04-05-2024 04-05-2024 Chronic Menstrual disorders (8 sources) Irregular periods; Translations: [Irregular menstruation, unspecified] Onset: 01-20-2023 01-20-2023 Chronic Mood disorders (17 sources) Bipolar disorder, unspecified; Translations: [Bipolar I disorder] Onset: 12-14-2022 01-20-2023 Chronic Nausea and vomiting (3 sources) Nausea; Translations: [Nausea and vomiting] Onset: 11-03-2022 05-02-2024 Episodic Open wounds of head; neck; and trunk (1 source) Laceration without foreign body of right ear, initial encounter; Translations: [Laceration without foreign body of right ear, initial encounter] Onset: 01-20-2024 Episodic Other aftercare (1 source) Other long-term (current) drug therapy; Translations: [OTH ALF CURRENT DRUG THERAPY] Onset: 12-14-2022 Episodic Other [...] COND 3RD TRI] Onset: 11-03-2022 Episodic Other complications of (5 sources) Vomiting of , unspecified; Translations: [Unspecified vomiting of , unspecified as to episode of care or not applicable] Onset: 06-16-2022 Episodic Other gastrointestinal disorders (1 source) Irritable bowel syndrome without diarrhea; Translations: [IRRITABLE BOWEL SYND W/O DIARRHEA] Onset: 12-14-2022 Chronic Other gastrointestinal disorders (8 sources) Irritable bowel syndrome with diarrhea; Translations: [Irritable bowel syndrome with diarrhea] Onset: 01-20-2023 01-20-2023 Chronic Other liver diseases (1 source) Fatty (change of) liver, not elsewhere classified; Translations: [FATTY CHANGE LIVER NEC] Onset: 12-14-2022 Chronic Other liver diseases (8 sources) Steatosis of liver; Translations: [Fatty (change of) liver, not elsewhere classified] Onset: 01-20-2023 01-20-2023 Chronic Other and delivery including normal (18 sources) Single live ; Translations: [Encounter for [...] [30 weeks gestation of ] 05-02-2024 Episodic Residual codes; unclassified (2 sources) Gestation period, 32 weeks; Translations: [32 weeks gestation of ] 05-16-2024 Episodic Screening and history of mental health and substance abuse codes (1 source) Personal history of nicotine dependence; Translations: [PERSONAL HISTORY OF NICOTINE DEPEND] Onset: 12-14-2022 Episodic Substance-related disorders (3 sources) Drug use complicating childbirth; Translations: [Cannabis use, unspecified, uncomplicated] Onset: 11-03-2022 Episodic Syncope (9 sources) Syncope and collapse; Translations: [Syncope] Onset: 01-20-2024 03-15-2024 Episodic Unclassified (1 source) EMS Onset: 01-20-2024 Viral infection (1 source) Herpesviral infection, unspecified; Translations: [HERPESVIRAL INFECTION UNSPECIFIED] Onset: 12-14-2022 Episodic Past or Other Problems Problem Classification Problem Date Documented Da te Episodic/Chronic Other complications of (1 source) Mild hyperemesis gravidarum; Translations: [MILD HYPEREMESIS GRAVIDARUM] Onset: 06-20-2022 Episodic Residual codes; unclassified (1 source) 13 weeks gestation of ; Translations: [13 WEEKS GESTATION OF ] Onset: 06-20-2022 Episodic Results Test Name Value Interpretation Reference Range Facility ALL CBC WITH AUTO DIFFon BASOPHILS ABSOLUTE AUTO 0.1 [facility] Basophils/100 WBC (Bld) 0.4 % 0.2 - 2.0 % [facility] Eosinophils/100 WBC (Bld) 1 % 0.9 - 7.0 % [facility] Erythrocyte distribution width (RBC) [Ratio] 15 % 11.0 - 15.0 % [facility] Hematocrit (Bld) [Volume fraction] 30.1 % Low 36.0 - 48.0 % [facility] Hemoglobin (Bld) [Mass/Vol] 9.1 g/dL Low 12.0 - 16.0 g/dL [facility] IMMATURE GRANULOCYTES ABS AUTO 0.43 High [facility] Immature granulocytes/100 WBC (Bld) 3.2 % High 0.0 - 0.5 % [facility] Interpretation and review of laboratory results Abnormal [facility] LYMPHOCYTES ABSOLUTE AUTO 2.3 [facility] Lymphocytes/100 WBC (Bld) 17 % Low 20.5 - 60.0 % [facility] MCH (RBC) [Entitic mass] 24.5 pg Low 26.7 - 34.0 pg [facility] MCHC (RBC) [Mass/Vol] 30.2 g/dL 29.9 - 35.2 g/dL [facility] MCV (RBC) [Entitic vol] 81.1 fL 81.0 - 99.0 fL [facility] MONOCYTES ABSOLUTE AUTO 1.1 High [facility] Monocytes/100 WBC (Bld) 8.1 % 1.7 - 12.0 % [facility] NEUTROPHILS ABSOLUTE AUTO 9.5 High [facility] Neutrophils/100 WBC (Bld) 70.3 % 43.0 - 75.0 % [facility] Platelet mean volume (Bld) [Entitic vol] 9.8 fL 9.5 - 13.5 fL [facility] EO # 0.1 [facility] PLT 313 [facility] RBC 3.71 Low [facility] WBC 13.5 High [facility] Urinalysis macro (dipstick) panel (U)on 05-16-2024 Bilirubin, UA Positive Negative - 4(70) +++ mg/dL [facility] Comment on above: small Blood, UA Positive Negative - 50 Nelson/mcL [facility] Comment on above: blood Clarity, UA Clear [facility] Color, UA Leonila [facility] Glucose, UA Negative Negative - 1999(110) ++++ mg/dL [facility] Interpretation and review of laboratory results Abnormal [facility] Ketones, UA Positive Negative - 160(16) ++++ mg/dL [facility] Comment on above: trace Leukocytes, UA Negative Negative - 500+++ Antonio/mcL [facility] Nitrite, UA Negative Negative - Positive [facility] pH, UA 6 5 - 9 [facility] Protein, UA Positive Negative - 1999(20) ++++ mg/dL [facility] Comment on above: 30 mg Spec Grav, UA 1.025 1 - 1.03 [facility] Urobilinogen, UA 0.2 0.2 - 12 mg/dL [facility] UA (CLEAN/CATCH) UNDERCOVER COP/CARMELITA RO IF IND.on 05-07-2024 BILIRUBIN URINE Negative NEGATIVE [facility] BLOOD URINE Negative NEGATIVE [facility] Clarity (U) CLEAR CLEAR [facility] Color (U) LT YELLOW YELLOW [facility] GLUCOSE URINE UA 250 mg/dL Abnormal NEGATIVE [facility] Interpretation and review of laboratory results Abnormal [facility] Ketones Ql (U) Negative NEGATIVE mg/dL [facility] Leukocyte esterase Test strip Ql (U) Negative NEGATIVE [facility] NITRITE URINE Negative NEGATIVE [facility] pH (U) 6.5 [pH] 5.0 - 9.0 [facility] PROTEIN URINE Negative NEG/TRACE mg/dL [facility] SPECIFIC GRAVITY URINE 1.015 1.005 - 1.025 [facility] URINE MICROSCOPIC INDICATED NO [facility] UROBILINOGEN URINE 0.2 EU/dL 0.2 - 1.0 EU/dL [facility] Urinalysis macro (dipstick) panel (U)on 05-02-2024 Bilirubin, UA Negative Negative - 4(70) +++ mg/dL [facility] Blood, UA Negative Negative - 50 Nelson/mcL [facility] Clarity, UA Clear [facility] Color, UA Yellow [facility] Glucose, UA Negative Negative - 1999(110) ++++ mg/dL [facility] Interpretation and review of laboratory results Abnormal [facility] Ketones, UA Positive Negative - 160(16) ++++ mg/dL [facility] Leukocytes, UA Negative Negative - 500+++ Antonio/mcL [facility] Nitrite, UA Negative Negative - Positive [facility] pH, UA 6 5 - 9 [facility] Protein, UA Positive Negative - 1999(20) ++++ mg/dL [facility] Spec Grav, UA 1.025 1 - 1.03 [facility] Urobilinogen, UA 1.0 0.2 - 12 mg/dL [facility] CBC AND AUTO DIFFon 01-20-20 24 ABSOLUTE BASOPHIL 0.1 X10E9/L Normal 0.0-0.2 [facility] Comment on above: Performed By: #### C COREY [facility], 70352-5 #### [facility] ([id number]) [address] [place] [address] 22255 ABSOLUTE NEUTROPHIL 8.1 X10E9/L High 1.5-6.6 [facility] Comment on above: Performed By: #### C MELYSSA NICOLE, 79448-8 #### [facility] ([id number]) [address] [place] [address] 89114 Basophils/100 WBC (Bld) 0.5 % Normal [facility] Comment on above: Performed By: #### C MELYSSA NICOLE, 45036-6 #### [facility] ([id number]) [address] [place] [address] 97951 Eosinophils (Bld) [#/Vol] 0.2 10*3/uL Normal 0.0-0.4 [facility] Comment on above: Performed By: #### C MELYSSA NICOLE, 93216-8 #### [facility] ([id number]) [address] [place] [address] 73384 Eosinophils/100 WBC (Bld) 1.4 % Normal [facility] Comment on above: Performed By: #### Melia NICOLE CMP, 40647-3 #### [facility] ([id number]) [address] [place] [address] 70207 Erythrocyte distribution width (RBC) [Ratio] 14.4 % Normal 11.5-15.0 [facility] Comment on above: Performed By: #### Melia NICOLE CMP, 61724-5 #### [facility] ([id number]) [address] [place] [address] 52388 Hematocrit (Bld) [Volume fraction] 32.4 % Low 35-47 [facility] Comment on above: Performed By: #### Melia NICOLE CMP, 20814-4 #### [facility] ([id number]) [address] [place] [address] 32519 Hemoglobin (Bld) [Mass/Vol] 10.9 g/dL Low 11.7-15.5 [facility] Comment on above: Performed By: #### Melia NICOLE CMP, 14393-0 #### [facility] ([id number]) [address] [place] [address] 52168 Lymphocytes (Bld) [#/Vol] 2.0 10*3/uL Normal 1.0-3.5 [facility] Comment on above: Performed By: #### Melia NICOLE CMP, 88600-9 #### [facility] ([id number]) [address] [place] [address] 01788 Lymphocytes/100 WBC (Bld) 17.8 % Normal [facility] Comment on above: Performed By: #### Melia NICOLE CMP, 39561-6 #### [facility] ([id number]) [address] [place] [address] 82982 MCH (RBC) [Entitic mass] 28.4 pg Normal 27-34 [facility] Comment on above: Performed By: #### Melia NICOLE CMP, 21071-2 #### [facility] ([id number]) [address] [place] [address] 74846 MCHC (RBC) [Mass/Vol] 33.5 g/dL Normal 32-36 [facility] Comment on above: Performed By: #### Melia NICOLE CMP, 86820-7 #### [facility] ([id number]) [address] [place] [address] 74676 MCV (RBC) [Entitic vol] 85 fL Normal 80-100 [facility] Comment on above: Performed By: #### Melia NICOLE CMP, 65954-9 #### [facility] ([id number]) [address] [place] [address] 76273 Monocytes (Bld) [#/Vol] 0.8 10*3/uL Normal 0-0.9 [facility] Comment on above: Performed By: #### Melia NICOLE CMP, 77429-4 #### [facility] ([id number]) [address] [place] [address] 55527 Monocytes/100 WBC (Bld) 7.1 % Normal [facility] Comment on above: Performed By: #### Melia NICOLE CMP, 76928-9 #### [facility] ([id number]) [address] [place] [address] 87680 Neutrophils/100 WBC (Bld) 73.2 % Normal [facility] Comment on above: Performed By: #### Melia NICOLE CMP, 65017-0 #### [facility] ([id number]) [address] [place] [address] 81862 Platelet mean volume (Bld) [Entitic vol] 7.5 fL Normal 7-12 [facility] Comment on above: Performed By: #### Melia NICOLE, CMP, 55844-3 #### [facility] ([id number]) [address] [place] [address] 48482 Platelets (Bld) [#/Vol] 300 10*3/uL Normal 150-450 [facility] Comment on above: Performed By: #### Melia NICOLE, CMP, 83416-9 #### [facility] ([id number]) [address] [place] [address] 93674 RBC COUNT 3.83 X10E12/L Normal 3.80-5.20 [facility] Comment on above: Performed By: #### Meila NICOLE, CMP, 90749-5 #### [facility] ([id number]) [address] [place] [address] 20079 WBC (Bld) [#/Vol] 11.1 10*3/uL High 4.0-11.0 [facility] Comment on above: Performed By: #### Melia NICOLE, CMP, 46001-8 #### [facility] ([id number]) [address] [place] [address] 89690 COMPREHENSIVE METABOLIC PANE Yassine 01-20-2024 Albumin [Mass/Vol] 3.2 g/dL Normal 3.2-5.3 [facility] Comment on above: Performed By: #### Melia NICOLE, CMP, 31520-6 #### [facility] ([id number]) [address] [place] [address] 48159 ALP [Catalytic activity/Vol] 49 U/L Normal 39-130 [facility] Comment on above: Performed By: #### Melia NICOLE, CMP, 90329-7 #### [facility] ([id number]) [address] [place] [address] 51331 ALT [Catalytic activity/Vol] 16 U/L Normal 0-31 [facility] Comment on above: Performed By: #### C BCA, CMP, 19767-1 #### [facility] ([id number]) [address] [place] [address] 73967 Anion gap [Moles/Vol] 7 mmol/L Normal 5-15 [facility] Comment on above: Performed By: #### C COREY, CMP, 15065-0 #### [facility] ([id number]) [address] [place] [address] 13477 AST [Catalytic activity/Vol] 20 U/L Normal 0-41 [facility] Comment on above: Performed By: #### C COREY, CMP, 50175-5 #### [facility] ([id number]) [address] [place] [address] [place] [address] Bilirubin [Mass/Vol] 0.3 mg/dL Normal 0.3-1.2 [facility] Comment on above: Performed By: #### C COREY, CMP, 19115-6 #### [facility] ([id number]) [address] [place] [address] 11045 Calcium [Mass/Vol] 8.6 mg/dL Normal 8.5-10.5 [facility] Comment on above: Performed By: #### C BCA, CMP, 90938-6 #### [facility] ([id number]) [address] [place] [address] 88029 Chloride [Moles/Vol] 99 mmol/L Normal 98-109 [facility] Comment on above: Performed By: #### C BCA, CMP, 29035-5 #### [facility] ([id number]) [address] [place] [address] 19950 CO2 [Moles/Vol] 22 mmol/L Normal 22-32 [facility] Comment on above: Performed By: #### C MELYSSA NICOLE, 28839-6 #### [facility] ([id number]) [address] [place] [address] 01979 Creatinine [Mass/Vol] 0.56 mg/dL Normal 0.40-1.00 [facility] Comment on above: Result Comment: METH OD TRACEABLE TO IDMS STANDARD Performed By: #### C MELYSSA NICOLE, 28492-5 #### [facility] ([id number]) [address] [place] [address] 22663 eGFR (CKD-EPI) NON-RACE DEPENDENT >90 Normal >59 [facility] Comment on above: Result Comment: Reported eGFR is based on the CKD-EPI 2020 equation that does not use a race coefficient. Performed By: #### C MELYSSA NICOLE, 43005-1 #### [facility] ([id number]) [address] [place] [address] 89456 Glucose [Mass/Vol] 102 mg/dL High 65-99 [facility] Comment on above: Performed By: #### C COREY [facility], 99798-4 #### [facility] ([id number]) [address] [place] [address] 64678 Potassium [Moles/Vol] 3.7 mmol/L Normal 3.5-5.0 [facility] Comment on above: Performed By: #### C MELYSSA NICOLE, 05974-4 #### [facility] ([id number]) [address] [place] [address] 21853 Protein [Mass/Vol] 7.2 g/dL Normal 6.0-8.0 [facility] Comment on above: Performed By: #### C MELYSSA NICOLE, 10677-8 #### [facility] ([id number]) [address] [place] [address] 31508 Sodium [Moles/Vol] 128 mmol/L Low 134-146 [facility] Comment on above: Performed By: #### C COREY, [facility], 18105-1 #### [facility] ([id number]) [address] [place] [address] 04918 Urea nitrogen [Mass/Vol] 9 mg/dL Normal 5-23 [facility] Comment on above: Performed By: #### C BCA, [facility], 39932-2 #### [facility] ([id number]) [address] [place] [address]RAIN WO CONT[address] BRAIN WO [...] Mckinley MD on 01/20/2024 2:56 PM Normal [facility] CT CERVICAL SPINE WO CONTon 01-20-2024 [...] Corrales MD on 01/20/2024 2:52 PM Normal [facility] Troponin I.cardiac High sens itivity method [Mass/Vol]on 01-20-2024 1 HOUR TROP I, HIGH SENSITIVITY <2 Normal <16 [facility] Comment on above: Performed By: #### 8 9579-7 #### [facility] ([id number]) [address] [place] [address] 73958 TROPONIN I, HIGH SENSITIVITY <2 Normal <16 [facility] Comment on above: Performed By: #### C BCA, CMP, 30945-6 #### [facility] ([id number]) [address] [place] [address], [place] [address] CANNABINOID (THC) CONFIRMATI ON, URINEon 12-15-2022 Cannabinoid Positive Abnormal [facility] Comment on above: Performed By: #### C BC #### [facility] [address] [place] [address] Dr. Isi Forbes Carboxy THC GC/MS Conf >750 Normal Cutoff=10 [facility] Comment on above: Performed By: #### C BC #### [facility] [address] [place] [address] Dr. Isi Forbes CBC AUTO DIFFon 12-10-2022 BASO # 0.0 103/ul Normal 0.0-0.1 [facility] Comment on above: Performed By: #### G TT3P #### [facility] [address] [place] [address] Dr. Isi Forbes Basophils/100 WBC (Bld) 0.3 % Normal 0.2-2.0 [facility] Comment on above: Performed By: #### G TT3P #### [facility] [address] [place] [address] Dr. Isi Forbes EO # 0.1 103/ul Normal 0.0-0.7 [facility] Comment on above: Performed By: #### G TT3P #### [facility] [address] [place] [address] Dr. Isi Forbes Eosinophils/100 WBC (Bld) 0.5 % Critically low 0.9-7.0 [facility] Comment on above: Performed By: #### G TT3P #### [facility] [address] [place] [address] Dr. Isi Forbes Erythrocyte distribution width (RBC) [Ratio] 13.8 % Normal 11.0-15.0 [facility] Comment on above: Performed By: #### G TT3P #### [facility] [address] [place] [address] Dr. Isi Forbes Hematocrit (Bld) [Volume fraction] 24.1 % Critically low 36.0-48.0 [facility] Comment on above: Performed By: #### G TT3P #### [facility] [address] [place] [address] Dr. Isi Forbes Hemoglobin (Bld) [Mass/Vol] 7.7 g/dL Critically low 12.0-16.0 [facility] Comment on above: Performed By: #### G TT3P #### [facility] [address] [place] [address] Dr. Isi Forbes IG # 0.11 10e3/ul Critically high 0.00-0.03 [facility] Comment on above: Performed By: #### G TT3P #### [facility] [address] [place] [address] Dr. Isi Forbes IG % 0.9 % Critically high 0.0-0.5 [facility] Comment on above: Performed By: #### G TT3P #### [facility] [address] [place] [address] Dr. Isi Forbes LYMPH # 2.0 103/ul Normal 1.2-3.8 [facility] Comment on above: Performed By: #### G TT3P #### [facility] [address] [place] [address] Dr. Isi Forbes Lymphocytes/100 WBC (Bld) 16.9 % Critically low 20.5-60.0 [facility] Comment on above: Performed By: #### G TT3P #### [facility] [address] [place] [address] Dr. Isi Forbes MANUAL DIFF REQ NO Normal [facility] Comment on above: Performed By: #### G TT3P #### [facility] [address] [place] [address] Dr. Isi Forbes MCH (RBC) [Entitic mass] 27.4 pg Normal 26.7-34.0 [facility] Comment on above: Performed By: #### G TT3P #### [facility] [address] [place] [address] Dr. Isi Forbes MCHC (RBC) [Mass/Vol] 32.0 g/dL Normal 29.9-35.2 [facility] Comment on above: Performed By: #### G TT3P #### [facility] [address] [place] [address] Dr. Isi Forbes MCV (RBC) [Entitic vol] 85.8 fL Normal 81.0-99.0 [facility] Comment on above: Performed By: #### G TT3P #### [facility] [address] [place] [address] Dr. Isi Forbes MONO # 1.5 103/ul Critically high 0.3-0.8 [facility] Comment on above: Performed By: #### G TT3P #### [facility] [address] [place] [address] Dr. Isi Forbes Monocytes/100 WBC (Bld) 12.2 % Critically high 1.7-12.0 [facility] Comment on above: Performed By: #### G TT3P #### [facility] [address] [place] [address] Dr. Isi Forbes NEUT # 8.3 103/ul Critically high 1.4-6.5 [facility] Comment on above: Performed By: #### G TT3P #### [facility] [address] [place] [address] Dr. Isi Forbes Neutrophils/100 WBC (Bld) 69.2 % Normal 43.0-75.0 [facility] Comment on above: Performed By: #### G TT3P #### [facility] [address] [place] [address] Dr. Isi Forbes Platelet mean volume (Bld) [Entitic vol] 9.6 fL Normal 9.5-13.5 [facility] Comment on above: Performed By: #### G TT3P #### [facility] [address] [place] [address] Dr. Isi Forbes PLT 205 103/ul Normal 150-450 [facility] Comment on above: Performed By: #### G TT3P #### [facility] [address] [place] [address] Dr. Iis Forbes RBC 2.81 106/ul Critically low 4.20-5.40 [facility] Comment on above: Performed By: #### G TT3P #### [facility] [address] [place] [address] Dr. Isi Forbes WBC 12.0 103/ul Critically high 4.0-11.0 [facility] Comment on above: Performed By: #### G TT3P #### [facility] [address] [place] [address] Dr. Isi Forbes CBC AUTO DIFFon 12-09-2022 BASO # 0.1 103/ul Normal 0.0-0.1 [facility] Comment on above: Performed By: #### G TT3P #### [facility] [address] [place] [address] Dr. Isi Forbes Basophils/100 WBC (Bld) 0.5 % Normal 0.2-2.0 [facility] Comment on above: Performed By: #### G TT3P #### [facility] [address] [place] [address] Dr. Isi Forbes EO # 0.1 103/ul Normal 0.0-0.7 [facility] Comment on above: Performed By: #### G TT3P #### [facility] [address] [place] [address] Dr. Isi Forbes Eosinophils/100 WBC (Bld) 0.4 % Critically low 0.9-7.0 [facility] Comment on above: Performed By: #### G TT3P #### [facility] [address] [place] [address] Dr. Isi Forbes Erythrocyte distribution width (RBC) [Ratio] 13.7 % Normal 11.0-15.0 [facility] Comment on above: Performed By: #### G TT3P #### [facility] [address] [place] [address] Dr. Isi Forbes Hematocrit (Bld) [Volume fraction] 31.9 % Critically low 36.0-48.0 [facility] Comment on above: Performed By: #### G TT3P #### [facility] [address] [place] [address] Dr. Isi Forbes Hemoglobin (Bld) [Mass/Vol] 10.5 g/dL Critically low 12.0-16.0 [facility] Comment on above: Performed By: #### G TT3P #### [facility] [address] [place] [address] Dr. Isi Forbes IG # 0.13 10e3/ul Critically high 0.00-0.03 [facility] Comment on above: Performed By: #### G TT3P #### [facility] [address] [place] [address] Dr. Isi Forbes IG % 1.2 % Critically high 0.0-0.5 [facility] Comment on above: Performed By: #### G TT3P #### [facility] [address] [place] [address] Dr. Isi Forbes LYMPH # 2.0 103/ul Normal 1.2-3.8 [facility] Comment on above: Performed By: #### G TT3P #### [facility] [address] [place] [address] Dr. Isi Forbes Lymphocytes/100 WBC (Bld) 18.0 % Critically low 20.5-60.0 [facility] Comment on above: Performed By: #### G TT3P #### [facility] [address] [place] [address] Dr. Isi Forbes MANUAL DIFF REQ NO Normal [facility] Comment on above: Performed By: #### G TT3P #### [facility] [address] [place] [address] Dr. Isi Forbes MCH (RBC) [Entitic mass] 27.6 pg Normal 26.7-34.0 [facility] Comment on above: Performed By: #### G TT3P #### [facility] [address] [place] [address] Dr. Isi Forbes MCHC (RBC) [Mass/Vol] 32.9 g/dL Normal 29.9-35.2 [facility] Comment on above: Performed By: #### G TT3P #### [facility] [address] [place] [address] Dr. Isi Forbes MCV (RBC) [Entitic vol] 83.9 fL Normal 81.0-99.0 [facility] Comment on above: Performed By: #### G TT3P #### [facility] [address] [place] [address] Dr. Isi Forbes MONO # 1.0 103/ul Critically high 0.3-0.8 [facility] Comment on above: Performed By: #### G TT3P #### [facility] [address] [place] [address] Dr. Isi Forbes Monocytes/100 WBC (Bld) 8.9 % Normal 1.7-12.0 [facility] Comment on above: Performed By: #### G TT3P #### [facility] [address] [place] [address] Dr. Isi Forbes NEUT # 7.9 103/ul Critically high 1.4-6.5 [facility] Comment on above: Performed By: #### G TT3P #### [facility] [address] [place] [address] Dr. Isi Forbes Neutrophils/100 WBC (Bld) 71.0 % Normal 43.0-75.0 [facility] Comment on above: Performed By: #### G TT3P #### [facility] [address] [place] [address] Dr. Isi Forbes Platelet mean volume (Bld) [Entitic vol] 10.0 fL Normal 9.5-13.5 [facility] Comment on above: Performed By: #### G TT3P #### [facility] [address] [address] [address] Isi Forbes PLT 264 103/ul Normal 150-450 [facility] Comment on above: Performed By: #### G TT3P #### [facility] [address] [address] [address] Isi Forbes RBC 3.80 106/ul Critically low 4.20-5.40 [facility] Comment on above: Performed By: #### G TT3P #### [facility] [address] [address] [address] Isi Forbes WBC 11.1 103/ul Critically high 4.0-11.0 [facility] Comment on above: Performed By: #### G TT3P #### [facility] [address] [place] [address] Dr. Isi Forbes DRUG SCREEN RAPID (URINE)on 12-09-2022 AMP Negative Normal NEGATIVE [facility] Comment on above: Performed By: #### G TT3P #### [facility] [address] [place] [address] Dr. Isi Forbes BAR Negative Normal NEGATIVE [facility] Comment on above: Performed By: #### G TT3P #### [facility] [address] [place] [address] Dr. Isi Forbes BUP Negative Normal NEGATIVE [facility] Comment on above: Performed By: #### G TT3P #### [facility] [address] [place] [address] Dr. Isi Forbes BZO Negative Normal NEGATIVE [facility] Comment on above: Performed By: #### G TT3P #### [facility] [address] [place] [address] Dr. Isi Forbes BEATA Negative Normal NEGATIVE [facility] Comment on above: Performed By: #### G TT3P #### [facility] [address] [place] [address] Dr. Isi Forbes CUT-OFFS SEE BELOW Normal [facility] Comment on above: Result Comment: AMP [...] ng/mL Performed By: #### G TT3P #### [facility] [address] [place] [address] Dr. Isi Forbes DRUG CUT HEADER DRUG CLASS TEST SYSTEM CUT-OFF CONCENTRATIONS ARE FOLLOWS: Normal [facility] Comment on above: Performed By: #### G TT3P #### [facility] [address] [place] [address] Dr. Isi Forbes mAMP Negative Normal NEGATIVE [facility] Comment on above: Performed By: #### G TT3P #### [facility] [address] [place] [address] Dr. Isi Forbes MTD Negative Normal NEGATIVE [facility] Comment on above: Performed By: #### G TT3P #### [facility] [address] [place] [address] Dr. Isi Forbes OPI Negative Normal NEGATIVE [facility] Comment on above: Performed By: #### G TT3P #### [facility] [address] [place] [address] Dr. Isi Forbes OXY Negative Normal NEGATIVE [facility] Comment on above: Performed By: #### G TT3P #### [facility] [address] [place] [address] Dr. Isi Forbes PCP Negative Normal NEGATIVE [facility] Comment on above: Performed By: #### G TT3P #### [facility] [address] [place] [address] Dr. Isi Forbes PPX Negative Normal NEGATIVE [facility] Comment on above: Performed By: #### G TT3P #### [facility] [address] [place] [address] Dr. Isi Forbes TCA Negative Normal NEGATIVE [facility] Comment on above: Performed By: #### G TT3P #### [facility] [address] [place] [address] Dr. Isi Forbes THC Positive Abnormal NEGATIVE [facility] Comment on above: Performed By: #### G TT3P #### [facility] [address] [place] [address] Dr. Isi Forbes TYPE AND SCREENon 12-09-2022 TYPE AND SCREEN Negative Normal [facility] Comment on above: Performed By: #### R PRQ #### [facility] [address] [place] [address] Dr. Isi Forbes UA (CLEAN/CATCH) UNDERCOVER COP/MICRO I F IND.on 12-09-2022 Bilirubin Ql (U) Negative Normal NEGATIVE [facility] Comment on above: Performed By: #### C BC #### [facility] [address] [place] [address] Dr. Isi Forbes Clarity (U) CLEAR Normal CLEAR [facility] Comment on above: Performed By: #### C BC #### [facility] [address] [place] [address] Dr. Isi Forbes Color (U) YELLOW Normal YELLOW [facility] Comment on above: Performed By: #### C BC #### [facility] [address] [place] [address] Dr. Isi Forbes Glucose Ql (U) Negative Normal NEGATIVE [facility] Comment on above: Performed By: #### C BC #### [facility] [address] [place] [address] Dr. Isi Forbes Hemoglobin Ql (U) Negative Normal NEGATIVE [facility] Comment on above: Performed By: #### C BC #### [facility] [address] [place] [address] Dr. Isi Forbes Ketones Ql (U) TRACE Abnormal NEGATIVE [facility] Comment on above: Performed By: #### C BC #### [facility] [address] [place] [address] Dr. Isi Forbes LEUKOCYTES Negative Normal NEGATIVE [facility] Comment on above: Performed By: #### C BC #### [facility] [address] [place] [address] Dr. Isi Forbes Nitrite Ql (U) Negative Normal NEGATIVE [facility] Comment on above: Performed By: #### C BC #### [facility] [address] [place] [address] Dr. Isi Forbes pH (U) 6.5 [pH] Normal 5-9 [facility] Comment on above: Performed By: #### C BC #### [facility] [address] [place] [address] Dr. Isi Forbes SPEC GRAVITY 1.025 Normal 1.005-<=1.025 [facility] Comment on above: Performed By: #### C BC #### [facility] [address] [place] [address] Dr. Isi Forbes UA PROTEIN TRACE Normal NEGATIVE/ TRACE [facility] Comment on above: Performed By: #### C BC #### [facility] [address] [place] [address] Dr. Isi Forbes UR MICRO IND NOT INDICATED Normal [facility] Comment on above: Performed By: #### C BC #### [facility] [address] [place] [address] Dr. Isi Forbes Urobilinogen Qn (U) 0.2 {Barb'U}/dL Normal 0.2 - 1. 0 [facility] Comment on above: Performed By: #### C BC #### [facility] [address] [place] [address] Dr. Isi Forbes GROUP B STREP CULTUREon 11-15 S. agalactiae Ag Ql (Unsp spec) Culture Observations: NEGATIVE FOR GROUP B STREPTOCOCCUS. Normal [facility] Comment on above: Performed By: #### R PRQ #### [facility] [address] [place] [address] Dr. Isi Forbes US PREG BIOPHY W [...] biophysical profile score 8.0. Electronically authenticated by: RFEDY DICK Date: 2022-10-31 22:08 Normal [facility] US PREG GROWTHon 11-01-2022 US PREG [...] FREDY DICK Date: 2022-10-31 22:07 Normal [facility] CBC AUTO DIFFon 10-28-2022 BASO # 0.0 103/ul Normal 0.0-0.1 [facility] Comment on above: Performed By: #### G TT3P #### [facility] [address] [place] [address] Dr. Isi Forbes Basophils/100 WBC (Bld) 0.1 % Critically low 0.2-2.0 [facility] Comment on above: Performed By: #### G TT3P #### [facility] [address] [place] [address] Dr. Isi Forbes EO # 0.0 103/ul Normal 0.0-0.7 [facility] Comment on above: Performed By: #### G TT3P #### [facility] [address] [address] [address] Isi Forbes Eosinophils/100 WBC (Bld) 0.1 % Critically low 0.9-7.0 [facility] Comment on above: Performed By: #### G TT3P #### [facility] [address] [place] [address] Dr. Isi Forbes Erythrocyte distribution width (RBC) [Ratio] 12.7 % Normal 11.0-15.0 [facility] Comment on above: Performed By: #### G TT3P #### [facility] [address] [place] [address] Dr. Isi Forbes Hematocrit (Bld) [Volume fraction] 29.1 % Critically low 36.0-48.0 [facility] Comment on above: Performed By: #### G TT3P #### [facility] [address] [place] [address] Dr. Isi Forbes Hemoglobin (Bld) [Mass/Vol] 9.4 g/dL Critically low 12.0-16.0 [facility] Comment on above: Performed By: #### G TT3P #### [facility] [address] [place] [address] Dr. Isi Forbes IG # 0.20 10e3/ul Critically high 0.00-0.03 [facility] Comment on above: Performed By: #### G TT3P #### [facility] [address] [place] [address] Dr. Isi Forbes IG % 1.4 % Critically high 0.0-0.5 [facility] Comment on above: Performed By: #### G TT3P #### [facility] [address] [place] [address] Dr. Isi Forbes LYMPH # 1.9 103/ul Normal 1.2-3.8 [facility] Comment on above: Performed By: #### G TT3P #### [facility] [address] [place] [address] Dr. Isi Forbes Lymphocytes/100 WBC (Bld) 13.5 % Critically low 20.5-60.0 [facility] Comment on above: Performed By: #### G TT3P #### [facility] [address] [place] [address] Dr. Isi Forbes MANUAL DIFF REQ NO Normal [facility] Comment on above: Performed By: #### G TT3P #### [facility] [address] [place] [address] Dr. Isi Forbes MCH (RBC) [Entitic mass] 28.2 pg Normal 26.7-34.0 [facility] Comment on above: Performed By: #### G TT3P #### [facility] [address] [place] [address] Dr. Isi Forbes MCHC (RBC) [Mass/Vol] 32.3 g/dL Normal 29.9-35.2 [facility] Comment on above: Performed By: #### G TT3P #### [facility] [address] [place] [address] Dr. Isi Forbes MCV (RBC) [Entitic vol] 87.4 fL Normal 81.0-99.0 [facility] Comment on above: Performed By: #### G TT3P #### [facility] [address] [place] [address] Dr. Isi Forbes MONO # 0.8 103/ul Normal 0.3-0.8 [facility] Comment on above: Performed By: #### G TT3P #### [facility] [address] [place] [address] Dr. Isi Forbes Monocytes/100 WBC (Bld) 5.9 % Normal 1.7-12.0 [facility] Comment on above: Performed By: #### G TT3P #### [facility] [address] [place] [address] Dr. Isi Forbes NEUT # 10.9 103/ul Critically high 1.4-6.5 [facility] Comment on above: Performed By: #### G TT3P #### [facility] [address] [place] [address] Dr. Isi Forbes Neutrophils/100 WBC (Bld) 79.0 % Critically high 43.0-75.0 [facility] Comment on above: Performed By: #### G TT3P #### [facility] [address] [address] [address] Isi Forbes Platelet mean volume (Bld) [Entitic vol] 9.3 fL Critically low 9.5-13.5 [facility] Comment on above: Performed By: #### G TT3P #### [facility] [address] [address] [address] Isi Forbes PLT 265 103/ul Normal 150-450 [facility] Comment on above: Performed By: #### G TT3P #### [facility] [address] [address] [address] Isi Forbes RBC 3.33 106/ul Critically low 4.20-5.40 [facility] Comment on above: Performed By: #### G TT3P #### [facility] [address] [place] [address] Dr. Isi Forbes WBC 13.8 103/ul Critically high 4.0-11.0 [facility] Comment on above: Performed By: #### G TT3P #### [facility] [address] [place] [address] Dr. Isi Forbes CBC AUTO DIFFon 10-27-2022 BASO # 0.0 103/ul Normal 0.0-0.1 [facility] Comment on above: Performed By: #### C BC #### [facility] [address] [place] [address] Dr. Isi Forbes Basophils/100 WBC (Bld) 0.2 % Normal 0.2-2.0 [facility] Comment on above: Performed By: #### C BC #### [facility] [address] [place] [address] Dr. Isi Forbes EO # 0.0 103/ul Normal 0.0-0.7 [facility] Comment on above: Performed By: #### C BC #### [facility] [address] [place] [address] Dr. Isi Forbes Eosinophils/100 WBC (Bld) 0.1 % Critically low 0.9-7.0 [facility] Comment on above: Performed By: #### C BC #### [facility] [address] [address] [address] Isi Forbes Erythrocyte distribution width (RBC) [Ratio] 12.7 % Normal 11.0-15.0 [facility] Comment on above: Performed By: #### C BC #### [facility] [address] [address] [address] Isi Forbes Hematocrit (Bld) [Volume fraction] 30.4 % Critically low 36.0-48.0 [facility] Comment on above: Performed By: #### C BC #### [facility] [address] [place] [address] Dr. Isi Forbes Hemoglobin (Bld) [Mass/Vol] 10.4 g/dL Critically low 12.0-16.0 [facility] Comment on above: Performed By: #### C BC #### [facility] [address] [place] [address] Dr. Isi Forbes IG # 0.19 10e3/ul Critically high 0.00-0.03 [facility] Comment on above: Performed By: #### C BC #### [facility] [address] [place] [address] Dr. Isi Forbes IG % 1.2 % Critically high 0.0-0.5 [facility] Comment on above: Performed By: #### C BC #### [facility] [address] [place] [address] Dr. Isi Forbes LYMPH # 1.1 103/ul Critically low 1.2-3.8 [facility] Comment on above: Performed By: #### C BC #### [facility] [address] [place] [address] Dr. Isi Forbes Lymphocytes/100 WBC (Bld) 6.7 % Critically low 20.5-60.0 [facility] Comment on above: Performed By: #### C BC #### [facility] [address] [place] [address] Dr. Isi Forbes MANUAL DIFF REQ NO Normal [facility] Comment on above: Performed By: #### C BC #### [facility] [address] [address] [address] Isi Forbes MCH (RBC) [Entitic mass] 29.5 pg Normal 26.7-34.0 [facility] Comment on above: Performed By: #### C BC #### [facility] [address] [address] [address] Isi Forbes MCHC (RBC) [Mass/Vol] 34.2 g/dL Normal 29.9-35.2 [facility] Comment on above: Performed By: #### C BC #### [facility] [address] [address] [address] Isi Forbes MCV (RBC) [Entitic vol] 86.1 fL Normal 81.0-99.0 [facility] Comment on above: Performed By: #### C BC #### [facility] [address] [place] [address] Dr. Isi Forbes MONO # 0.3 103/ul Normal 0.3-0.8 [facility] Comment on above: Performed By: #### C BC #### [facility] [address] [place] [address] Dr. Isi Forbes Monocytes/100 WBC (Bld) 1.7 % Normal 1.7-12.0 [facility] Comment on above: Performed By: #### C BC #### [facility] [address] [place] [address] Dr. Isi Forbes NEUT # 14.1 103/ul Critically high 1.4-6.5 [facility] Comment on above: Performed By: #### C BC #### [facility] [address] [place] [address] Dr. Isi Forbes Neutrophils/100 WBC (Bld) 90.1 % Critically high 43.0-75.0 [facility] Comment on above: Performed By: #### C BC #### [facility] [address] [place] [address] Dr. Isi Forbes Platelet mean volume (Bld) [Entitic vol] 8.9 fL Critically low 9.5-13.5 [facility] Comment on above: Performed By: #### C BC #### [facility] [address] [place] [address] Dr. Isi Forbes PLT 276 103/ul Normal 150-450 [facility] Comment on above: Performed By: #### C BC #### [facility] [address] [place] [address] Dr. Isi Forbes RBC 3.53 106/ul Critically low 4.20-5.40 [facility] Comment on above: Performed By: #### C BC #### [facility] [address] [place] [address] Dr. Isi Forbes WBC 15.6 103/ul Critically high 4.0-11.0 [facility] Comment on above: Performed By: #### C BC #### [facility] [address] [place] [address] Dr. Isi Forbes UA (CLEAN/CATCH) UNDERCOVER COP/MICRO I F IND.on 10-27-2022 Bilirubin Ql (U) Negative Normal NEGATIVE [facility] Comment on above: Performed By: #### C BC #### [facility] [address] [place] [address] Dr. Isi Forbes Clarity (U) CLEAR Normal CLEAR [facility] Comment on above: Performed By: #### C BC #### [facility] [address] [place] [address] Dr. Isi Forbes Color (U) LT. YELLOW Normal YELLOW [facility] Comment on above: Performed By: #### C BC #### [facility] [address] [place] [address] Dr. Isi Forbes Glucose Ql (U) Negative Normal NEGATIVE [facility] Comment on above: Performed By: #### C BC #### [facility] [address] [place] [address] Dr. Isi Forbes Hemoglobin Ql (U) Negative Normal NEGATIVE [facility] Comment on above: Performed By: #### C BC #### [facility] [address] [place] [address] Dr. Isi Forbes Ketones Ql (U) Negative Normal NEGATIVE [facility] Comment on above: Performed By: #### C BC #### [facility] [address] [place] [address] Dr. Isi Forbes LEUKOCYTES Negative Normal NEGATIVE [facility] Comment on above: Performed By: #### C BC #### [facility] [address] [place] [address] Dr. Isi Forbes Nitrite Ql (U) Negative Normal NEGATIVE [facility] Comment on above: Performed By: #### C BC #### [facility] [address] [place] [address] Dr. Isi Forbes pH (U) 6.0 [pH] Normal 5-9 [facility] Comment on above: Performed By: #### C BC #### [facility] [address] [place] [address] Dr. Isi Forbes SPEC GRAVITY 1.010 Normal 1.005-<=1.025 [facility] Comment on above: Performed By: #### C BC #### [facility] [address] [place] [address] Dr. Isi Forbes UA PROTEIN Negative Normal NEGATIVE/ TRACE [facility] Comment on above: Performed By: #### C BC #### [facility] [address] [place] [address] Dr. Isi Forbes UR MICRO IND NOT INDICATED Normal [facility] Comment on above: Performed By: #### C BC #### [facility] [address] [place] [address] Dr. Isi Forbes Urobilinogen Qn (U) 0.2 {Barb'U}/dL Normal 0.2 - 1. 0 [facility] Comment on above: Performed By: #### C BC #### [facility] [address] [place] [address] Dr. Isi Forbes US PREG CERVICAL LENGTHon [...] FREDY DICK Date: 2022-10-27 16:05 Normal [facility] GTT 3 HR PREGon 10-26-2022 Glucose [Mass/Vol] 99 mg/dL Normal 74-106 [facility] Comment on above: Performed By: #### G TT3P #### [facility] [address] [address] [address] Isi Forbes Glucose [Mass/Vol] 172 mg/dL Normal [facility] Comment on above: Performed By: #### G TT3P #### [facility] [address] [place] [address] Dr. Isi Forbes Glucose [Mass/Vol] 147 mg/dL Normal [facility] Comment on above: Performed By: #### G TT3P #### [facility] [address] [address] [address] Isi Forbes Glucose [Mass/Vol] 125 mg/dL Normal [facility] Comment on above: Performed By: #### G TT3P #### [facility] [address] [place] [address] Dr. Isi Forbes GLYCOHEMOGLOBIN A1Con 2022 ADA RECOMMENDATION SEE BELOW Normal [facility] Comment on above: Result Comment: ADA RECOMMENDED LIMIT 4.0 - 6.0 ADA THERAPEUTIC TARGET < 7.0 ACTION SUGGESTED > 7.0 Performed By: #### A 1C #### [facility] [address] [place] [address] Dr. Isi Forbes Glucose [Mass/Vol] 114 mg/dL Normal [facility] Comment on above: Performed By: #### A 1C #### [facility] [address] [place] [address] Dr. Isi Forbes HbA1c (Bld) [Mass fraction] 5.6 % Normal 4.5-6.2 [facility] Comment on above: Performed By: #### A 1C #### [facility] [address] [place] [address] Dr. Isi Forbes UA RANDOMon 10-25-2022 Bilirubin Ql (U) Negative Normal NEGATIVE [facility] Comment on above: Performed By: #### R PRQ #### [facility] [address] [place] [address] Dr. Isi Forbes Clarity (U) CLEAR Normal CLEAR [facility] Comment on above: Performed By: #### R PRQ #### [facility] [address] [place] [address] Dr. Isi Forbes Color (U) LT. YELLOW Normal YELLOW [facility] Comment on above: Performed By: #### R PRQ #### [facility] [address] [place] [address] Dr. Isi Forbes Glucose Ql (U) Negative Normal NEGATIVE [facility] Comment on above: Performed By: #### R PRQ #### [facility] [address] [place] [address] Dr. Isi Forbes Hemoglobin Ql (U) Negative Normal NEGATIVE [facility] Comment on above: Performed By: #### R PRQ #### [facility] [address] [place] [address] Dr. Isi Forbes Ketones Ql (U) Negative Normal NEGATIVE [facility] Comment on above: Performed By: #### R PRQ #### [facility] [address] [place] [address] Dr. Isi Forbes LEUKOCYTES Negative Normal NEGATIVE [facility] Comment on above: Performed By: #### R PRQ #### [facility] [address] [place] [address] Dr. Iis Forbes Nitrite Ql (U) Negative Normal NEGATIVE [facility] Comment on above: Performed By: #### R PRQ #### [facility] [address] [place] [address] Dr. Isi Forbes pH (U) 7.5 [pH] Normal 5-9 [facility] Comment on above: Performed By: #### R PRQ #### [facility] [address] [place] [address] Dr. Isi Forbes SPEC GRAVITY 1.020 Normal 1.005-<=1.025 [facility] Comment on above: Performed By: #### R PRQ #### [facility] [address] [place] [address] Dr. Isi Forbes UA PROTEIN Negative Normal NEGATIVE/ TRACE [facility] Comment on above: Performed By: #### R PRQ #### [facility] [address] [place] [address] Dr. Isi Forbes Urobilinogen Qn (U) 0.2 {Barb'U}/dL Normal 0.2 - 1. 0 [facility] Comment on above: Performed By: #### R PRQ #### [facility] [address] [place] [address] Dr. Isi Forbes GLUCOSE - 1HRon 09-27-2022 Glucose [Mass/Vol] 166 mg/dL Critically high 74-106 [facility] Comment on above: Performed By: #### C BC #### [facility] [address] [place] [address] Dr. Isi Forbes HEMOGRAM AND PLATELon 2022 Hematocrit (Bld) [Volume fraction] 30.9 % Critically low 36.0-48.0 [facility] Comment on above: Performed By: #### C BC #### [facility] [address] [place] [address] Dr. Isi Forbes Hemoglobin (Bld) [Mass/Vol] 10.4 g/dL Critically low 12.0-16.0 [facility] Comment on above: Performed By: #### C BC #### [facility] [address] [place] [address] Dr. Isi Forbes MCH (RBC) [Entitic mass] 29.9 pg Normal 26.7-34.0 [facility] Comment on above: Performed By: #### C BC #### [facility] [address] [place] [address] Dr. Isi Forbes MCHC (RBC) [Mass/Vol] 33.7 g/dL Normal 29.9-35.2 [facility] Comment on above: Performed By: #### C BC #### [facility] [address] [place], [place] [address] Dr. Isi Forbes MCV (RBC) [Entitic vol] 88.8 fL Normal 81.0-99.0 [facility] Comment on above: Performed By: #### C BC #### [facility] [address] [place], [place] [address] Dr. Isi Forbes PLT 300 103/ul Normal 150-450 [facility] Comment on above: Performed By: #### C BC #### [facility] [address] [place], [place] [address] Dr. Isi Forbes RBC 3.48 106/ul Critically low 4.20-5.40 [facility] Comment on above: Performed By: #### C BC #### [facility] [address] [place], [place] [address] Dr. Isi Forbes WBC 10.1 103/ul Normal 4.0-11.0 [facility] Comment on above: Performed By: #### C BC #### [facility] [address] [place], [place] [address] Dr. Isi Forbes US PREG ANATOMY SINGLEon [...] by: ASHLEE STOVER Date: 2022-08-04 16:06 Normal [facility] PAP ACOG PANEL 2: 30 to 65on 07-25-2022 . . Normal [facility] Comment on above: Result Comment: Perf ormed at: [facility] Performed By: #### G TT3P #### [facility] [address] [place] [address] Dr. Isi Forbes Age Gdln ACOG Testing 30-65 Normal [facility] Comment on above: Performed By: #### G TT3P #### [facility] [address] [address] [address] Isi Forbes DIAGNOSIS: Comment Normal [facility] Comment on above: Result Comment: NEGA TIVE FOR INTRAEPITHELIAL LESION OR MALIGNANCY. Performed at: [facility] Performed By: #### G TT3P #### [facility] [address] [address] [address] Isi Forbes HPV Aptima Negative Normal Negative [facility] Comment on above: Result Comment: This nucleic acid amplification test detects fourteen high-risk HPV types (16,18,31,33,35,39,45,51,52,56,58,59,66,68) without differentiation. Performed at: =G Performed By: #### G TT3P #### [facility] [address] [place] [address] Dr. Isi Forbes HPV Genotype Reflex Comment Normal [facility] Comment on above: Result Comment: Crit eria not met, HPV Genotype not performed. Performed at: [facility] Performed By: #### G TT3P #### [facility] [address] [place] [address] Dr. Isi Forbes Methodology: Comment Normal [facility] Comment on above: Result Comment: This liquid based ThinPrep(R) pap test was screened with the use of an image guided system. Performed at: [facility] Performed By: #### G TT3P #### [facility] [address] [place] [address] Dr. Isi Forbes Note: Comment Normal [facility] Comment on above: Result Comment: The Pap smear is a screening test designed to aid in the detection of premalignant and malignant conditions of the uterine cervix. It is not a diagnostic procedure and should not be used as the sole means of detecting cervical cancer. Both false-positive and false-negative reports do occur. . Performed at: [facility] Performed By: #### G TT3P #### [facility] [address] [place] [address] Dr. Isi Forbes Performed by: Comment Normal [facility] Comment on above: Result Comment: Mikki Good, [employer] (ASCP) Performed at: [facility] Performed By: #### G TT3P #### [facility] [address] [place] [address] Dr. Isi Forbes Specimen adequacy: Comment Normal [facility] Comment on above: Result Comment: Sati sfactory for evaluation. Endocervical and/or squamous metaplastic cells (endocervical component) are present. Performed at: [facility] Performed By: #### G TT3P #### [facility] [address] [place] [address] Dr. Isi Forbes CHLAMYDIA/GONOCOCCUS SARA (SW AB/URINE/PAPon 07-23-2022 Chlamydia trachomatis, SARA Negative Normal Negative [facility] Comment on above: Performed By: #### C BC #### [facility] [address] [place] [address] Dr. Isi Forbes Neisseria gonorrhoeae, SARA Negative Normal Negative [facility] Comment on above: Performed By: #### C BC #### [facility] [address] [place] [address] Dr. Isi Forbes CBC AUTO DIFFon 06-16-2022 BASO # 0.1 103/ul Normal 0.0-0.1 [facility] Comment on above: Performed By: #### G TT3P #### [facility] [address] [place] [address] Dr. Isi Forbes Basophils/100 WBC (Bld) 0.5 % Normal 0.2-2.0 [facility] Comment on above: Performed By: #### G TT3P #### [facility] [address] [place] [address] Dr. Isi Forbes EO # 0.1 103/ul Normal 0.0-0.7 [facility] Comment on above: Performed By: #### G TT3P #### [facility] [address] [place] [address] Dr. Isi Forbes Eosinophils/100 WBC (Bld) 1.2 % Normal 0.9-7.0 [facility] Comment on above: Performed By: #### G TT3P #### [facility] [address] [place] [address] Dr. Isi Forbes Erythrocyte distribution width (RBC) [Ratio] 12.7 % Normal 11.0-15.0 [facility] Comment on above: Performed By: #### G TT3P #### [facility] [address] [place] [address] Dr. Isi Forbes Hematocrit (Bld) [Volume fraction] 33.0 % Critically low 36.0-48.0 [facility] Comment on above: Performed By: #### G TT3P #### [facility] [address] [place] [address] Dr. Isi Forbes Hemoglobin (Bld) [Mass/Vol] 11.3 g/dL Critically low 12.0-16.0 [facility] Comment on above: Performed By: #### G TT3P #### [facility] [address] [place] [address] Dr. Isi Forbes IG # 0.06 10e3/ul Critically high 0.00-0.03 [facility] Comment on above: Performed By: #### G TT3P #### [facility] [address] [address] [address] Isi Forbes IG % 0.6 % Critically high 0.0-0.5 [facility] Comment on above: Performed By: #### G TT3P #### [facility] [address] [address] [address] Isi Forbes LYMPH # 2.0 103/ul Normal 1.2-3.8 [facility] Comment on above: Performed By: #### G TT3P #### [facility] [address] [address] [address] Isi Forbes Lymphocytes/100 WBC (Bld) 20.0 % Critically low 20.5-60.0 [facility] Comment on above: Performed By: #### G TT3P #### [facility] [address] [place] [address] Dr. Isi Forbes MANUAL DIFF REQ NO Normal [facility] Comment on above: Performed By: #### G TT3P #### [facility] [address] [place] [address] Dr. Isi Forbes MCH (RBC) [Entitic mass] 31.1 pg Normal 26.7-34.0 [facility] Comment on above: Performed By: #### G TT3P #### [facility] [address] [place] [address] Dr. Isi Forbes MCHC (RBC) [Mass/Vol] 34.2 g/dL Normal 29.9-35.2 [facility] Comment on above: Performed By: #### G TT3P #### [facility] [address] [place] [address] Dr. Isi Forbes MCV (RBC) [Entitic vol] 90.9 fL Normal 81.0-99.0 [facility] Comment on above: Performed By: #### G TT3P #### [facility] [address] [place] [address] Dr. Isi Forbes MONO # 0.6 103/ul Normal 0.3-0.8 [facility] Comment on above: Performed By: #### G TT3P #### [facility] [address] [address] [address] Isi Forbes Monocytes/100 WBC (Bld) 6.0 % Normal 1.7-12.0 [facility] Comment on above: Performed By: #### G TT3P #### [facility] [address] [address] [address] Isi Forbes NEUT # 7.2 103/ul Critically high 1.4-6.5 [facility] Comment on above: Performed By: #### G TT3P #### [facility] [address] [place] [address] Dr. Isi Forbes Neutrophils/100 WBC (Bld) 71.7 % Normal 43.0-75.0 [facility] Comment on above: Performed By: #### G TT3P #### [facility] [address] [place] [address] Dr. Isi Forbes Platelet mean volume (Bld) [Entitic vol] 9.5 fL Normal 9.5-13.5 [facility] Comment on above: Performed By: #### G TT3P #### [facility] [address] [place] [address] Dr. Isi Forbes PLT 244 103/ul Normal 150-450 [facility] Comment on above: Performed By: #### G TT3P #### [facility] [address] [place] [address] Dr. Isi Forbes RBC 3.63 106/ul Critically low 4.20-5.40 [facility] Comment on above: Performed By: #### G TT3P #### [facility] [address] [place] [address] Dr. Isi Forbes WBC 10.0 103/ul Normal 4.0-11.0 [facility] Comment on above: Performed By: #### G TT3P #### [facility] [address] [place] [address] Dr. Isi Forbes ER URINE PROFILEon 2 Bilirubin Ql (U) Negative Normal NEGATIVE [facility] Comment on above: Performed By: #### G TT3P #### [facility] [address] [place] [address] Dr. Isi Forbes Clarity (U) CLEAR Normal CLEAR [facility] Comment on above: Performed By: #### G TT3P #### [facility] [address] [place] [address] Dr. Isi Forbes Color (U) LT. YELLOW Normal YELLOW [facility] Comment on above: Performed By: #### G TT3P #### [facility] [address] [place] [address] Dr. Isi Forbes ERUAHD A micrscopic examination will be performed if indicated. Normal [facility] Comment on above: Performed By: #### G TT3P #### [facility] [address] [place] [address] Dr. Isi Forbes Glucose Ql (U) Negative Normal NEGATIVE [facility] Comment on above: Performed By: #### G TT3P #### [facility] [address] [place] [address] Dr. Isi Forbes Hemoglobin Ql (U) Negative Normal NEGATIVE [facility] Comment on above: Performed By: #### G TT3P #### [facility] [address] [place] [address] Dr. Isi Forbes Ketones Ql (U) Negative Normal NEGATIVE [facility] Comment on above: Performed By: #### G TT3P #### [facility] [address] [place] [address] Dr. Isi Forbes LEUKOCYTES TRACE Abnormal NEGATIVE [facility] Comment on above: Performed By: #### G TT3P #### [facility] [address] [place] [address] Dr. Isi Forbes Nitrite Ql (U) Negative Normal NEGATIVE [facility] Comment on above: Performed By: #### G TT3P #### [facility] [address] [place] [address] Dr. Isi Forbes pH (U) 7.0 [pH] Normal 5-9 [facility] Comment on above: Performed By: #### G TT3P #### [facility] [address] [place] [address] Dr. Isi Forbes SPEC GRAVITY 1.020 Normal 1.005-<=1.025 [facility] Comment on above: Performed By: #### G TT3P #### [facility] [address] [place] [address] Dr. Isi Forbes UA PROTEIN Negative Normal NEGATIVE/ TRACE [facility] Comment on above: Performed By: #### G TT3P #### [facility] [address] [place] [address] Dr. Isi Forbes UR MICRO IND INDICATED Normal [facility] Comment on above: Performed By: #### G TT3P #### [facility] [address] [place] [address] Dr. Isi Forbes Urobilinogen Qn (U) 0.2 {Barb'U}/dL Normal 0.2 - 1. 0 [facility] Comment on above: Performed By: #### G TT3P #### [facility] [address] [place] [address] Dr. Isi Forbes PROF CHEM 8 (BAS METB)on Anion gap [Moles/Vol] 11.8 mmol/L Normal [facility] Comment on above: Performed By: #### G TT3P #### [facility] [address] [place] [address] Dr. Isi Forbes Calcium [Mass/Vol] 8.8 mg/dL Normal 8.5-10.1 [facility] Comment on above: Performed By: #### G TT3P #### [facility] [address] [place] [address] Dr. Isi Forbes Chloride [Moles/Vol] 102 mmol/L Normal 98-107 [facility] Comment on above: Performed By: #### G TT3P #### [facility] [address] [place] [address] Dr. Isi Forbes CO2 [Moles/Vol] 26.9 mmol/L Normal 21.0-32.0 [facility] Comment on above: Performed By: #### G TT3P #### [facility] [address] [place] [address] Dr. Isi Forbes Creatinine [Mass/Vol] 0.42 mg/dL Critically low 0.55-1.02 [facility] Comment on above: Performed By: #### G TT3P #### [facility] [address] [place] [address] Dr. Isi Forbes EGFR-AF BURKINAN >60 Normal >=60 [facility] Comment on above: Performed By: #### G TT3P #### [facility] [address] [address] [address] Isi Forbes EGFR-NON AF BURKINAN >60 Normal >=60 [facility] Comment on above: Performed By: #### G TT3P #### [facility] [address] [address] [address] Isi Forbes Glucose [Mass/Vol] 86 mg/dL Normal 74-106 [facility] Comment on above: Performed By: #### G TT3P #### [facility] [address] [place] [address] Dr. Isi Forbes Potassium [Moles/Vol] 3.7 mmol/L Normal 3.5-5.1 [facility] Comment on above: Performed By: #### G TT3P #### [facility] [address] [address] [address] Isi Forbes Sodium [Moles/Vol] 137 mmol/L Normal 136-145 [facility] Comment on above: Performed By: #### G TT3P #### [facility] [address] [place] [address] Dr. Isi Forbes Urea nitrogen [Mass/Vol] 9.0 mg/dL Normal 7.0-18.0 [facility] Comment on above: Performed By: #### G TT3P #### [facility] [address] [address] [address] Isi Forbes Urea nitrogen/Creatinine [Mass ratio] 21.4 mg/mg Normal [facility] Comment on above: Performed By: #### G TT3P #### [facility] [address] [address] [address] Isi Forbes URINE MICROSCOPIC ONLYon BACTERIA TRACE Abnormal NONE SEEN [facility] Comment on above: Performed By: #### C BC #### [facility] [address] [place] [address] Dr. Isi Forbes Bacteria identified Cx Nom (U) NOT INDICATED Normal [facility] Comment on above: Performed By: #### C BC #### [facility] [address] [place] [address] Dr. Isi Forbes CAST NONE SEEN Normal NONE SEEN [facility] Comment on above: Performed By: #### C BC #### [facility] [address] [place] [address] Dr. Isi Forbes Crystals LM Nom (Urine sed) NONE SEEN Normal NONE SEEN [facility] Comment on above: Performed By: #### C BC #### [facility] [address] [place] [address] Dr. Isi Forbes Epithelial cells LM Ql (Urine sed) MODERATE Abnormal NONE SEEN /RARE [facility] Comment on above: Performed By: #### C BC #### [facility] [address] [place] [address] Dr. Isi Forbes MUCOUS NONE SEEN Normal NONE SEEN [facility] Comment on above: Performed By: #### C BC #### [facility] [address] [place] [address] Dr. Isi Forbes RBC NONE SEEN Abnormal 0-2 [facility] Comment on above: Performed By: #### C BC #### [facility] [address] [place] [address] Dr. Isi Forbes WBC 2-5 Abnormal NONE SEEN [facility] Comment on above: Performed By: #### C BC #### [facility] [address] [place] [address] Dr. Isi Forbes HEP B SURFACE ANTIGEN SCREEN on 06-05-2022 HBsAg Screen Negative Normal Negative [facility] Comment on above: Performed By: #### H BSANS #### [facility] [address] [place] [address] Dr. Isi Forbes HEPATITIS C VIRUS AB W/ REFL EX QUANTon 06-05-2022 HCV AB 0.1 s/co ratio Normal 0.0-0.9 [facility] Comment on above: Performed By: #### G TT3P #### [facility] [address] [place] [address] Dr. Isi Forbes Interpretation: Comment Normal [facility] Comment on above: Result Comment: Nega tive Not infected with HCV, unless recent infection is suspected or other evidence exists to indicate HCV infection. Performed By: #### G TT3P #### [facility] [address] [place] [address] Dr. Isi Forbes HIV 1 AND 2 WITH REFLEXon HIV Screen 4th Generation wRfx Non-Reactive Normal Non Reactive [facility] Comment on above: Result Comment: HIV Negative HIV-1/HIV-2 antibodies and HIV-1 p24 antigen were NOT detected. There is no laboratory evidence of HIV infection. Performed By: #### C BC #### [facility] [address] [place] [address] Dr. Isi Forbes RPR QUANTon 06-05-2022 Rapid Plasma Reagin, Quant Non-Reactive Normal NonRea<1:1 [facility] Comment on above: Result Comment: Plea se Note: This test does not meet current guidelines for screening and diagnosis of syphilis. This test is intended for following treatment response in patients being treated for syphilis infection. To screen for syphilis infection, a reflex cascade that includes both RPR and a treponema-specific assay should be utilized, such as Treponema pallidum (Syphilis) Screening [place] (582652) or Rapid Plasma Reagin (RPR) Test With Reflex to Quantitative RPR and Confirmatory Treponema pallidum Antibodies (712173). Performed By: #### R PRQ #### [facility] [address] [place] [address] Dr. Isi Forbes RUBELLA AB IGGon 06-05-2022 Rubella Antibodies, IgG 6.87 index Normal Immune >0.99 [facility] Comment on above: Result Comment: Non- immune <0.90 Equivocal 0.90 - 0.99 Immune >0.99 Performed By: #### R PRQ #### [facility] [address] [place] [address] Dr. Isi Forbes CBC AUTO DIFFon 06-04-2022 BASO # 0.0 103/ul Normal 0.0-0.1 [facility] Comment on above: Performed By: #### C BC #### [facility] [address] [place] [address] Dr. Isi Forbes Basophils/100 WBC (Bld) 0.5 % Normal 0.2-2.0 [facility] Comment on above: Performed By: #### C BC #### [facility] [address] [place] [address] Dr. Isi Forbes EO # 0.1 103/ul Normal 0.0-0.7 [facility] Comment on above: Performed By: #### C BC #### [facility] [address] [place] [address] Dr. Isi Forbes Eosinophils/100 WBC (Bld) 1.5 % Normal 0.9-7.0 [facility] Comment on above: Performed By: #### C BC #### [facility] [address] [place] [address] Dr. Isi Forbes Erythrocyte distribution width (RBC) [Ratio] 12.1 % Normal 11.0-15.0 [facility] Comment on above: Performed By: #### C BC #### [facility] [address] [place] [address] Dr. Isi Forbes Hematocrit (Bld) [Volume fraction] 35.3 % Critically low 36.0-48.0 [facility] Comment on above: Performed By: #### C BC #### [facility] [address] [place] [address] Dr. Isi Forbes Hemoglobin (Bld) [Mass/Vol] 12.2 g/dL Normal 12.0-16.0 [facility] Comment on above: Performed By: #### C BC #### [facility] [address] [place] [address] Dr. Isi Forbes IG # 0.03 10e3/ul Normal 0.00-0.03 [facility] Comment on above: Performed By: #### C BC #### [facility] [address] [place] [address] Dr. Isi Forbes IG % 0.3 % Normal 0.0-0.5 [facility] Comment on above: Performed By: #### C BC #### [facility] [address] [place] [address] Dr. Isi Forbes LYMPH # 1.7 103/ul Normal 1.2-3.8 [facility] Comment on above: Performed By: #### C BC #### [facility] [address] [place] [address] Dr. Isi Forbes Lymphocytes/100 WBC (Bld) 20.1 % Critically low 20.5-60.0 [facility] Comment on above: Performed By: #### C BC #### [facility] [address] [place] [address] Dr. Isi Forbes MANUAL DIFF REQ NO Normal [facility] Comment on above: Performed By: #### C BC #### [facility] [address] [place] [address] Dr. Isi Forbes MCH (RBC) [Entitic mass] 30.7 pg Normal 26.7-34.0 [facility] Comment on above: Performed By: #### C BC #### [facility] [address] [place] [address] Dr. Isi Forbes MCHC (RBC) [Mass/Vol] 34.6 g/dL Normal 29.9-35.2 [facility] Comment on above: Performed By: #### C BC #### [facility] [address] [place] [address] Dr. Isi Forbes MCV (RBC) [Entitic vol] 88.9 fL Normal 81.0-99.0 [facility] Comment on above: Performed By: #### C BC #### [facility] [address] [place] [address] Dr. Isi Forbes MONO # 0.5 103/ul Normal 0.3-0.8 [facility] Comment on above: Performed By: #### C BC #### [facility] [address] [place] [address] Dr. Isi Forbes Monocytes/100 WBC (Bld) 5.4 % Normal 1.7-12.0 [facility] Comment on above: Performed By: #### C BC #### [facility] [address] [address] [address] Isi Forbes NEUT # 6.2 103/ul Normal 1.4-6.5 [facility] Comment on above: Performed By: #### C BC #### [facility] [address] [address] [address] Isi Forbes Neutrophils/100 WBC (Bld) 72.2 % Normal 43.0-75.0 [facility] Comment on above: Performed By: #### C BC #### [facility] [address] [address] [address] Isi Forbes Platelet mean volume (Bld) [Entitic vol] 9.4 fL Critically low 9.5-13.5 [facility] Comment on above: Performed By: #### C BC #### [facility] [address] [place] [address] Dr. Isi Forbes PLT 257 103/ul Normal 150-450 [facility] Comment on above: Performed By: #### C BC #### [facility] [address] [place] [address] Dr. Isi Forbes RBC 3.97 106/ul Critically low 4.20-5.40 [facility] Comment on above: Performed By: #### C BC #### [facility] [address] [place] [address] Dr. Isi Forbes WBC 8.6 103/ul Normal 4.0-11.0 [facility] Comment on above: Performed By: #### C BC #### [facility] [address] [place] [address] Dr. Isi Forbes CULTURE URINEon 06-04-2022 CULTURE URINE Culture Observations : LIGHT GROWTH OF MIXED GENITAL ALOK. NO POTENTIAL PATHOGENS SEEN. Normal [facility] Comment on above: Performed By: #### U RCX #### [facility] [address] [address] [address] Isi Forbes DRUG SCREEN RAPID (URINE)on 06-04-2022 AMP Negative Normal NEGATIVE [facility] Comment on above: Performed By: #### G TT3P #### [facility] [address] [place] [address] Dr. Isi Forbes BAR Negative Normal NEGATIVE [facility] Comment on above: Performed By: #### G TT3P #### [facility] [address] [place] [address] Dr. Isi Forbes BUP Negative Normal NEGATIVE [facility] Comment on above: Performed By: #### G TT3P #### [facility] [address] [place] [address] Dr. Isi Forbes BZO Negative Normal NEGATIVE [facility] Comment on above: Performed By: #### G TT3P #### [facility] [address] [place] [address] Dr. Isi Forbes BEATA Negative Normal NEGATIVE [facility] Comment on above: Performed By: #### G TT3P #### [facility] [address] [place] [address] Dr. Isi Forbes CUT-OFFS SEE BELOW Normal [facility] Comment on above: Result Comment: AMP (Amphetamine): 500ng/mL, BAR (Barbituates): 200 ng/mL, BZO (Benzodiazepines): 150 ng/mL, BUP (Buprenorphine): 10 ng/mL, BEATA (Cocaine): 150 ng/mL, mAMP (Methamphetamine): 500 ng/mL, MTD (Methadone): 200 ng/mL, OPI (Opiates): 100 ng/mL, OXY (Oxycodone): 100 ng/mL, PCP (Phencyclidine): 25 ng/mL, PPX (Propoxyphene): 300 ng/mL, THC (Cannabinoids): 50 ng/mL, TCA (Trycyclic Antidepressants): 300 ng/mL Performed By: #### G TT3P #### [facility] [address] [place] [address] Dr. Isi Forbes DRUG CUT HEADER DRUG CLASS TEST SYSTEM CUT-OFF CONCENTRATIONS ARE FOLLOWS: Normal [facility] Comment on above: Performed By: #### G TT3P #### [facility] [address] [place] [address] Dr. Isi Forbes mAMP Negative Normal NEGATIVE [facility] Comment on above: Performed By: #### G TT3P #### [facility] [address] [address] [address] Isi Forbes MTD Negative Normal NEGATIVE [facility] Comment on above: Performed By: #### G TT3P #### [facility] [address] [address] [address] Isi Forbes OPI Negative Normal NEGATIVE [facility] Comment on above: Performed By: #### G TT3P #### [facility] [address] [address] [address] Isi Forbes OXY Negative Normal NEGATIVE [facility] Comment on above: Performed By: #### G TT3P #### [facility] [address] [address] [address] Isi Forbes PCP Negative Normal NEGATIVE [facility] Comment on above: Performed By: #### G TT3P #### [facility] [address] [address] [address] Isi Forbes PPX Negative Normal NEGATIVE [facility] Comment on above: Performed By: #### G TT3P #### [facility] [address] [address] [address] Isi Forbes TCA Negative Normal NEGATIVE [facility] Comment on above: Performed By: #### G TT3P #### [facility] [address] [address] [address] Isi Forbes THC Positive Abnormal NEGATIVE [facility] Comment on above: Performed By: #### G TT3P #### [facility] [address] [address] [address] Isi Forbes GLYCOHEMOGLOBIN A1Con 2021 ADA RECOMMENDATION SEE BELOW Normal [facility] Comment on above: Result Comment: ADA RECOMMENDED LIMIT 4.0 - 6.0 ADA THERAPEUTIC TARGET < 7.0 ACTION SUGGESTED > 7.0 Performed By: #### A 1C #### [facility] [address] [place] [address] Dr. Isi Forbes Glucose [Mass/Vol] 111 mg/dL Normal [facility] Comment on above: Performed By: #### A 1C #### [facility] [address] [address] [address] Isi Forbes HbA1c (Bld) [Mass fraction] 5.5 % Normal 4.5-6.2 [facility] Comment on above: Performed By: #### A 1C #### [facility] [address] [address] [address] Isi Forbes AUTUMN BOX TEST PT SEND OUTo n 06-04-2022 SENT TO REF LAB 06/04/2022 Normal [facility] Comment on above: Performed By: #### R PRQ #### [facility] [address] [address] [address] Isi Forbes TYPE AND SCREENon 06-04-2022 TYPE AND SCREEN Negative Normal [facility] Comment on above: Performed By: #### T NS #### [facility] [address] [address] [address] Isi Forbes US PREG TVon 05-18-2022 [...] by: FREDY DICK Date: 2022-05-18 05:51 Normal [facility] HCG,Urineon 11-04-2020 Beta HCG ( test) Ql (U) Negative Normal [facility] Comment on above: Result Comment: PERF ORMED BY: [place] [address] PATHOLOGIST BANK CREDIT CARD COLLECTION CLERK MIKE LECHUGA M.D. Performed By: #### U HCG #### [place] [address] [place] Yassine 11-04-2020 L - -------- Specimen: Received: 11/04/20 Status: PRASAD Nick Num: [id number] Spec Type: Surgical Subm Dr: Esequiel Lyles MD Tissues: A Duodenum - Biopsy (DUODENAL BX) Procedures: HE Stain/2, Gross/Micro L4 -------- Patient Age/Sex Location Account Attending Physician -------- Debbi Prado 30/F [id number] Esequiel Lyles MD -------- SPEC NUM: RECD: 11/04/20 STATUS: PRASAD NICK NUM: [id number] LADAN: 11/04/20 [facility] DR: Esequiel Lyles MD ENTERED: 11/04/20-1432 [facility] [address]: SPEC TYPE: Surgical DEPT: S [...] Entirely submitted in one cassette labeled A1. (/YJ) Microscopic Description Two glass slides with H E stained material have been examined. The microscopic findings support the above pathologic diagnosis. -------- Specimen: [id number] Received: 11/04/20 Status: PRASAD Nick Num: [id number] Spec Type: Surgical Subm Dr: Esequiel Lyles MD Tissues: A Duodenum - Biopsy (DUODENAL BX) Procedures: HE Stain/2, Gross/Micro L4 -------- Patient: Debbi Prado [id number] (Continued) -------- Specimen: Received: 11/04/20 (Continued) Signed (signature on file) Rhys Mckenzie MD 11/05/20 1050 -------- Specimen: Received: 11/04/20 Status: PRASAD Nick Num: [id number] Spec Type: Surgical Subm Dr: Esequiel Lyles MD Tissues: A Duodenum - Biopsy (DUODENAL BX) Procedures: PAULINO Stain/2, Gross/Micro L4 -------- Patient: Debbi Prado [id number] (Continued) -------- Specimen: Received: 11/04/20 (Continued) CPT Codes 47374 -------- -------- Specimen: [id number] Received: 11/04/20 Status: PRASAD Sandoval Num: [id number] Spec Type: Surgical Subm Dr: Esequiel Lyles MD Tissues: A Duodenum - Biopsy (DUODENAL BX) Procedures: HE Stain/2, Gross/Micro L4 -------- Patient: Debbi Prado [id number] (Continued) -------- Signed (signature on file) Rhys Mckenzie MD 11/05/20 1050 [facility] SARS-CoV-2 (COVID-19) RNA SARA+probe Ql (Unsp spec) Negative Normal Negative [facility] Comment on above: Order Comment: Healt hcare Worker?: N Result Comment: Refe rence: Negative Testing for SARS-CoV-2 by RT-PCR This test was developed and its performance characteristics determined by [employer] and validated at the [facility]. This test has not been FDA [...] is terminated or revoked sooner. PERFORMED BY: [place] [address] PATHOLOGIST BANK CREDIT CARD COLLECTION CLERK MIKE LECHUGA M.D. Performed By: #### C OVID-19 [facility] #### [address] Coding Summaryon 05-26-2020 Coding Summary CODING DATE: 05/26/2020 [facility] STATUS: Home PAYOR: [employer] [place] ADMIT DX: REASON FOR VISIT DX: R09.81 [...] Ashleigh Posada Date Saved: 05/26/2020 08:27 am [facility] Consent Formson 05-26-2020 Consent Forms [id number] .00OTGTIFF [facility] Provider [place] 05-26-2020 Provider Orders [id number] .00OTGTIFF [facility] 2019 Novel Coronavirus (CoVI D-19), SARA LCon 05-24-2020 SARS-CoV-2, SARA (COVID-19) LC Not Detected Not Detected [facility] Comment on above: Order Comment: [id number] [phone] Result Comment: This nucleic acid amplification test was developed and its performance characteristics determined by [employer]. Nucleic acid amplification tests include PCR and [...] in this assay. Performed At: [facility] [address] [place] [address] [place] [id number] Rere Bejarano MD Ph:[phone] Performed By: #### 6 [id number] ####[facility] (DEFAULT)[address] [place] [address] Progress Note - Nurseon Progress Note - Nurse Nasal swab perform ed without complication. Patient tolerated well. Education given. Patient verbalized understanding. [Electronically Signed on: 05/22/2020 11:25 EST] Genesis Ndiaye RN [Verified on: 05/22/2020 11:25 EST] Genesis Ndiaye RN [facility] Ambulatory Clinical Summaryo n 04-11-2020 Ambulatory Clinical Summary {[id number]}CD:[id number] [facility] Coding Summaryon 02-21-2020 Coding Summary CODING DATE: 02/21/2020 FINAL [facility] STATUS: Home PAYOR: [employer] ADMIT [...] Ashleigh Posada Date Saved: 02/21/2020 02:14 pm [facility] Consent Formson 02-18-2020 Consent Forms [id number] .00OTGTIFF [facility] 2019 Novel Coronavirus (CoVI D-19), SARA LCon 02-16-2020 SARS-CoV-2, SARA (COVID-19) LC Not Detected Not Detected [facility] Comment on above: Result Comment: This test was developed and its performance characteristics determined by [employer]. This test has not been FDA cleared [...] detected) result in this assay. Performed At: [facility] [address] [facility] [place] [id number] Rere Bejarano MD Ph:[phone] Performed By: #### 6 [id number] ####[facility] (DEFAULT)[address] [place] [address] Provider Orderson 02-15-2020 Provider Orders [id number] .[facility] [place] 02-14-2020 Provider Orders [id number], Quant.on 02-13-2020 IgA [Mass/Vol] 202 mg/dL 87-352 [facility] Comment on above: Result Comment: Perf ormed at: [facility] [address] [place], [place] [id number] PhD Dennis Toussaint Performed By: #### 2 672004, 2950730, 33333736, 4411431, 52271209, 31810376, [id number] ####[facility] [address] [place] [address] t-TRANSGLUTAMINASE IgAon tTG IgA Qn (S) <2 0-3 [facility] Comment on above: Result Comment: Nega tive 0 - 3 Weak Positive 4 - 10 Positive >10 Tissue Transglutaminase (tTG) has been identified as the endomysial antigen. Studies have demonstr- ated that endomysial IgA antibodies have over 99% specificity for gluten sensitive enteropathy. Performed at: [facility] [address] [place], [place] [id number] [phone] PhD Dennis Toussaint Performed By: #### 2 662314, 7579333, 68830218, 9024426, 31680995, 40826845, [id number] #### [facility] [address] [place] [address] Coding Summary.on 02-12-2020 Coding Summary. 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 Performed By: #### 2 236896, 7036624, 60082491, 6013548, 90276980, 61190919, 39997715 #### [facility] [address] [place] [address] Basophils/Leukocytes Auto (Bld) [Pure # fraction] 0.0 E9/L Normal 0.0-0.2 [facility] Comment on above: Order Comment: Order Added by Discern Expert. Performed By: #### 2 448551, 8736632, 08010369, 0493054, 94751278, 87096161, 91207511 #### [facility] [address] [place] [address] Eosinophils/100 WBC (Bld) 1.7 % Normal 0.0-8.0 [facility] Comment on above: Order Comment: Order Added by Discern Expert. Performed By: #### 2 238518, 0143265, 77681496, 5940110, 10673418, 07408743, 33240411 #### [facility] [address] [place] [address] Eosinophils/Leukocyte s Auto (Bld) [Pure # fraction] 0.2 E9/L Normal 0.0-0.5 [facility] Comment on above: Order Comment: Order Added by Discern Expert. Performed By: #### 2 034245, 6093889, 92373263, 8705652, 89665543, 13465290, 83381172 #### [facility] [address] [place] [address] Lymphocytes/100 WBC (Bld) 21.9 % Normal 14.0-50.0 [facility] Comment on above: Order Comment: Order Added by Discern Expert. Performed By: #### 2 736836, 0442081, 44494069, 4804098, 41362518, 91108052, 75406288 #### [facility] [address] [place] [address] Lymphocytes/Leukocyte s Auto (Bld) [Pure # fraction] 2.0 E9/L Normal 1.0-4.0 [facility] Comment on above: Order Comment: Order Added by Discern Expert. Performed By: #### 2 875132, 5045274, 45904688, 2202041, 46224163, 85905822, 70868114 #### [facility] [address] [place] [address] Monocytes/100 WBC (Bld) 7.6 % Normal 4.0-14.0 [facility] Comment on above: Order Comment: Order Added by Discern Expert. Performed By: #### 2 398329, 7236855, 91912585, 5187951, 31492606, 58518837, 96107856 #### [facility] [address] [place] [address] Monocytes/Leukocytes Auto (Bld) [Pure # fraction] 0.7 E9/L Normal 0.2-1.0 [facility] Comment on above: Order Comment: Order Added by Discern Expert. Performed By: #### 2 791967, 4477523, 14418696, 1043694, 11852553, 14736858, 99736755 #### [facility] [address] [place] [address] Neutrophils/100 WBC (Bld) 68.3 % Normal 36.0-75.0 [facility] Comment on above: Order Comment: Order Added by Discern Expert. Performed By: #### 2 359622, 2714415, 75589516, 4201665, 76432229, 73300196, 86218948 #### [facility] [address] [place] [address] Neutrophils/Leukocyte s Auto (Bld) [Pure # fraction] 6.2 E9/L Normal 2.0-7.5 [facility] Comment on above: Order Comment: Order Added by Discern Expert. Performed By: #### 2 363082, 8801223, 68514156, 7225223, 78942177, 00173463, 55711630 #### [facility] [address] [place] [address] CBC w/ Auto Diffon 0 Erythrocyte distribution width (RBC) [Ratio] 13.1 % Normal 10.9-14.2 [facility] Comment on above: Performed By: #### 2 741642, 5242354, 93260354, 2048666, 21910377, 69857006, 29866127 #### [facility] [address] [place] [address] Hematocrit (Bld) [Volume fraction] 41.8 % Normal 34.0-46.0 [facility] Comment on above: Performed By: #### 2 098248, 8715056, 31478666, 6390417, 20858486, 43434380, 05745739 #### [facility] [address] [place] [address] Hemoglobin (Bld) [Mass/Vol] 13.9 g/dL Normal 12.0-16.0 [facility] Comment on above: Performed By: #### 2 403836, 7256428, 61593178, 1286649, 85232281, 03517843, 15126014 #### [facility] [address] [place] [address] MCH (RBC) [Entitic mass] 30.7 pg Normal 27.0-34.0 [facility] Comment on above: Performed By: #### 2 569316, 8876152, 02070603, 2281253, 52830473, 83331704, 06954703 #### [facility] [address] [place], [place] [address] MCHC (RBC) [Mass/Vol] 33.4 g/dL Normal 31.4-36.0 [facility] Comment on above: Performed By: #### 2 140868, 6042377, 73862790, 7908321, 81218690, 09384452, 89083364 #### [facility] [address] [place] [address] MCV (RBC) [Entitic vol] 92.1 fL Normal 80.0-100.0 [facility] Comment on above: Performed By: #### 2 750361, 2479159, 66887901, 5018704, 98120109, 40676742, 58102519 #### [facility] [address] [place], [place] [address] Platelet mean volume (Bld) [Entitic vol] 7.7 fL Normal 6.4-10.8 [facility] Comment on above: Performed By: #### 2 905117, 7560463, 08660731, 0234080, 13487458, 68493362, 97893437 #### [facility] [address] [place] [address] Platelets (Bld) [#/Vol] 338.0 E9/L Normal 150.0-500.0 [facility] Comment on above: Performed By: #### 2 127763, 4750359, 24149560, 7276418, 92498770, 04097640, 99961938 #### [facility] [address] [place], [place] [address] RBC (Bld) [#/Vol] 4.5 E12/L Normal 4.3-5.9 [facility] Comment on above: Performed By: #### 2 793117, 5394355, 81652002, 5645052, 01369083, 90331744, 25670995 #### [facility] [address] [place] [address] WBC corrected for nucl RBC Auto (Bld) [#/Vol] 9.1 E9/L Normal 4.0-11.0 [facility] Comment on above: Performed By: #### 2 324304, 6559422, 70999518, 9504718, 12049602, 40721604, 59886155 #### [facility] [address] [place] [address] [facility] 02-11-2020 Albumin [Mass/Vol] 1.4 g/dL Normal 1.1-2.2 [facility] Comment on above: Performed By: #### 2 695900, 2221436, 06722448, 8315455, 84026860, 44219020, 27622446 #### [facility] [address] [place] [address] Albumin [Mass/Vol] 4.5 g/dL Normal 3.3-5.0 [facility] Comment on above: Performed By: #### 2 161993, 0113339, 23321032, 0443867, 49906043, 98545696, 13088612 #### [facility] [address] [place] [address] ALP [Catalytic activity/Vol] 58 Int._Unit/L Normal 21-98 [facility] Comment on above: Performed By: #### 2 075884, 6019049, 05780637, 7478640, 04787814, 93376529, 96006826 #### [facility] [address] [place] [address] ALT No additional P-5'-P [Catalytic activity/Vol] 33 Int._Unit/L Normal 6-46 [facility] Comment on above: Performed By: #### 2 216896, 2914827, 25287839, 8887798, 07878870, 75539234, 69829295 #### [facility] [address] [place] [address] Anion gap [Moles/Vol] 12 mmol/L Normal 6-16 [facility] Comment on above: Performed By: #### 2 899101, 2200736, 88925186, 5101727, 39423182, 89418760, 58664061 #### [facility] [address] [place] [address] AST [Catalytic activity/Vol] 22 Int._Unit/L Normal 5-43 [facility] Comment on above: Performed By: #### 2 491876, 3991936, 35674860, 7197728, 48175919, 32152287, 05148766 #### [facility] [address] [place] [address] Bilirubin [Mass/Vol] 0.5 mg/dL Normal 0.0-1.1 [facility] Comment on above: Performed By: #### 2 043295, 7826964, 22906262, 6177590, 87766963, 33873276, 22305570 #### [facility] [address] [place] [address] Calcium [Mass/Vol] 9.2 mg/dL Normal 8.9-11.1 [facility] Comment on above: Performed By: #### 2 330581, 5745598, 99291265, 1568507, 61552279, 07849882, 10300811 #### [facility] [address] [place] [address] Chloride [Moles/Vol] 106 mmol/L Normal 101-111 [facility] Comment on above: Performed By: #### 2 892358, 9695234, 65332458, 1040640, 93921727, 51543562, 39324514 #### [facility] [address] [place] [address] CO2 [Moles/Vol] 23 mmol/L Normal 21-31 [facility] Comment on above: Performed By: #### 2 954195, 5294395, 70776580, 5967064, 86370743, 20039971, 17525169 #### [facility] [address] [place] [address] Creatinine [Mass/Vol] 0.6 mg/dL Normal 0.5-1.3 [facility] Comment on above: Performed By: #### 2 512739, 7712954, 89850816, 9731225, 79893478, 95303017, 96640142 #### [facility] [address] [place] [address] Globulin (S) [Mass/Vol] 3.3 g/dL Normal 1.4-4.0 [facility] Comment on above: Performed By: #### 2 942477, 5287693, 28238890, 0424853, 23628566, 76663261, 49776351 #### [facility] [address] [place] [address] Glucose [Mass/Vol] 94 mg/dL Normal 55-199 [facility] Comment on above: Result Comment: If t his glucose result represents a fasting glucose, interpretation should refer to the following reference range: 55-99 mg/dL Performed By: #### 2 350323, 7102695, 17321961, 6414578, 18061951, 81413974, 86238587 #### [facility] [address] [place] [address] Potassium [Moles/Vol] 3.9 mmol/L Normal 3.5-5.3 [facility] Comment on above: Performed By: #### 2 416628, 6694708, 24314087, 1194650, 47315426, 04748785, 50484364 #### [facility] [address] [place] [address] Protein [Mass/Vol] 7.8 g/dL Normal 6.0-7.8 [facility] Comment on above: Performed By: #### 2 002875, 5070054, 25350424, 0336295, 90770103, 63361917, 36619243 #### [facility] [address] [place] [address] Sodium [Moles/Vol] 137 mmol/L Normal 135-145 [facility] Comment on above: Performed By: #### 2 750834, 8399433, 31438246, 2572677, 62615893, 67296106, 57404209 #### [facility] [address] [place] [address] Urea nitrogen [Mass/Vol] 12 mg/dL Normal 5-21 [facility] Comment on above: Performed By: #### 2 200079, 4761795, 73144328, 1236986, 28103401, 69772966, 15951942 #### [facility] [address] [place] [address] Urea nitrogen/Creatinine [Mass ratio] 20 No Units Normal 10-20 [facility] Comment on above: Performed By: #### 2 420506, 6832794, 90179659, 6914798, 39188167, 55982315, 10288831 #### [facility] [address] [place] [address] Coding Summaryon 02-11-2020 Coding Summary CODING DATE: 02/11/2020 [facility] STATUS: Home PAYOR: [facility] ADMIT DX: REASON FOR VISIT DX: R19.7 [...] Connie Akers Date Saved: 02/11/2020 08:49 am Normal [facility] Consent for Treatmenton 01-16 Consent for Treatment [id number] .00CD:127 Normal Da [facility] Gastroenterology Office/Clin ic Noteon 02-11-2020 Gastroenterology Office/Clinic [...] q8hr, # 20 tab(s), Refills(s) 1, [id number], 167.64, cm, 02/11/20 15:12:00 EDT, Height/Length [...] day(s), # 120 cap(s), Refills(s) 11, Pharmacy: [id number], 167.64, cm, 02/11/20 15:12:00 EDT, Height/Length [...] day(s), # 20 tab(s), Refills(s) 0, Pharmacy: [facility]acy #[id number], 167.64, cm, 02/11/20 15:12:00 EDT, Height/Length Measured, 90.4, kg, 02/11/20 15:12:00 EDT, Weight Measured 6. Cyclic vomiting syndrome (R11.15: Cyclical vomiting syndrome unrelated to migraine) Advised to stop marijuana use Follow-up With When Contact Information Emma PARSONS MD Within 2 weeks [facility] [address] [place] [address] [place] [address]- Additional Instructions: Patient Education Nausea, [...] Family History Family history is negative Normal [facility] Comment on above: Result Comment: Elec tronically [...] Document Reviewed: 03/15/2012 ExitCare? Patient Information ?2013 [employer]. Normal [facility] Sed Rate Automatedon 020 ESR (Bld) [Velocity] 10 mm/h Normal 0-34 [facility] Comment on above: Performed By: #### 2 451417, 8426227, 73682666, 3152040, 60460584, 22437451, 25111067 #### [facility] [address] [place] [address] eGFRon 02-11-2020 GFR/1.73 sq M predicted among blacks MDRD (S/P/Bld) [Vol rate/Area] mL/min/{1.73_m2} Normal >=59 [facility] Comment on above: Order Comment: Order added by Discern Expert. Result Comment: eGFR is race adjusted. AA=. Performed By: #### 2 798852, 0465565, 87242230, 3021854, 38638287, 29528934, 63667639 #### [facility] [address] [place] [address] GFR/1.73 sq M predicted among non-blacks MDRD (S/P/Bld) [Vol rate/Area] mL/min/{1.73_m2} Normal >=59 [facility] Comment on above: Order Comment: Order added by Discern Expert. Result Comment: Furniture Crater eulogio kidney disease could be indicated at eGFR's of less than 60 mL/min/1.73m2. Kidney failure is indicated at less than 15 mL/min/1.73m2. Performed By: #### 2 736654, 9023066, 86712158, 9802190, 06054026, 53305567, 45791442 #### [facility] [address] [place] [address] Historical Records Officeon 02-08-2020 Historical Records Office [id number]. 00CD:127 Normal [facility] - Immunology/Serology Re sults 01-31-2020 Lab - Immunology/Serology Results [id number] 1.00OTGTIFF Normal [facility] SARS-CoV-2 (COVID-19) PCRon 01-30-2020 COVID-19 PCR Not Detected Normal Not Detected [facility] Comment on above: Order Comment: Sent to [facility] Performed By: #### 6 [id number] ####[facility] (DEFAULT)[address] [place] [address] Provider Orderson 01-29-2020 Provider Orders [id number] .00OTGTIFF Normal [facility] Vital Signs Date Time Vital Sign Value Performing Clinician Cheryl colindres 05-16-2024 14:28-0400 Body mass index (BMI) [Ratio] 33.78 kg/m2 Yeni ISAAC Work Phone: [facility] 05-16-2024 14:28-0400 Body weight 92.08 kg Yeni ISAAC Work Phone: [facility] 05-16-2024 14:28-0400 Diastolic blood pressure 72 mm[Hg] Yeni ISAAC Work Phone: [facility] 05-16-2024 14:28-0400 Systolic blood pressure 124 mm[Hg] Yeni ISAAC Work Phone: [facility] 05-02-2024 13:46-0400 Body mass index (BMI) [Ratio] 33.08 kg/m2 Yeni ISAAC Work Phone: [facility] 05-02-2024 13:46-0400 Body weight 90.17 kg Yeni ISAAC Work Phone: [facility] 05-02-2024 13:46-0400 Diastolic blood pressure 80 mm[Hg] Yeni ISAAC Work Phone: [facility] 05-02-2024 13:46-0400 Systolic blood pressure 118 mm[Hg] Yeni ISAAC Work Phone: [facility] Healthcare Encounters Encounter Date Encounter Type Care Provider Facility Start: 05-16-2024 End: 05-16-2024 flow sheet Yeni ISAAC Work Phone: [facility] Comment on above: Third trimester preg jade; 32 weeks gestation of ; induced hypertension, antepartum; Nonintractable headache, unspecified chronicity pattern, unspecified headache type; Nausea and vomiting in ; Exposure to STD Start: 05-16-2024 End: 05-16-2024 ambulatory YENI CHANEY Not Available Start: 05-16-2024 End: 05-16-2024 Bamboo flowsheet Yeni ISAAC Work Phone: [facility] Start: 05-16-2024 End: 05-16-2024 Bamboo flowsheet Yeni ISAAC Work Phone: [facility] Start: 05-16-2024 End: 05-16-2024 Clinisync Result Encounter Becki Tu DO Work Phone: [facility] External Department Unsolicited Start: 05-07-2024 End: 05-07-2024 Clinisync Result Encounter Becki Tu DO Work Phone: [facility] External Department Unsolicited Start: 05-07-2024 End: 05-07-2024 Clinisync Result Encounter Becki Tu DO Work Phone: [facility] External Department Unsolicited Start: 05-02-2024 End: 05-02-2024 Bamboo flowsheet Yeni ISAAC Work Phone: [facility] Start: 05-02-2024 End: 05-02-2024 Bamboo flowsheet Yeni ISAAC Work Phone: [facility] Start: 05-02-2024 End: 05-02-2024 ambulatory YENI CHANEY Not Available Start: 05-02-2024 End: 05-02-2024 flow sheet Yeni ISAAC Work Phone: [facility] Comment on above: Third trimester [...] 01-20-2024 End: 01-21-2024 Emergency department patient visit [facility] Start: 01-20-2024 End: 01-20-2024 Emergency department patient visit [facility] Start: 01-12-2024 End: 01-12-2024 ambulatory [...] Date Procedure Procedure Detail Performing Clinician Start: 05-16-2024 ALL CBC WITH AUTO DIFF Becki Mae DO Work Phone: Start: 05-16-2024 Urnls dip stick/tabl et rgnt non-auto w/o micrscp Yeni ISAAC Work Phone: Start: 05-07-2024 [facility] UA (CLEAN/CATCH) UNDERCOVER COP/MICRO IF IND. Becki Mae DO Work Phone: Start: 05-02-2024 Urnls dip stick/tabl et rgnt non-auto w/o micrscp Becki Mae DO Work Phone: Start: 12-09-2022 Extraction of Produc ts of Conception, Low Cervical, Open Approach DR MARIO MARTINEZ . Plan of Treatment Date Care Activity Detail Author Start: 05-30-2024 End: 05-30-2024 Patient encounter procedure 05/30/2024 2:30 PM EST Routine [facility] [address] [place] [id number] Yeni Chaney PA [address] [place] [address] [facility] Start: 05-16-2024 End: 05-16-2024 Patient encounter procedure [facility] Comment on above: Arrived Start: 05-16-2024 End: 05-16-2025 Alanine aminotransferase [Enzymatic activity/volume] in Serum or Plasma ALT Lab Routine induced hypertension, antepartum Expected: 05/16/2024 (Approximate), Expires: 05/16/2025 [facility] Comment on above: Expected: 05/16/2024 (Approximate), Expires: 05/16/2025 Start: 05-16-2024 End: 05-16-2025 Aspartate aminotransferase [Enzymatic activity/volume] in Serum or Plasma AST Lab Routine induced hypertension, antepartum Expected: 05/16/2024 (Approximate), Expires: 05/16/2025 [facility] Comment on above: Expected: 05/16/2024 (Approximate), Expires: 05/16/2025 Start: 05-16-2024 End: 05-16-2025 CBC W Auto Differential panel - Blood CBC and differential Lab Routine induced hypertension, antepartum Expected: 05/16/2024 (Approximate), Expires: 05/16/2025 [facility] Comment on above: Expected: 05/16/2024 (Approximate), Expires: 05/16/2025 Start: 05-16-2024 End: 05-16-2025 Creatinine [Mass/volume] in Serum or Plasma Creatinine Lab Routine induced hypertension, antepartum Expected: 05/16/2024 (Approximate), Expires: 05/16/2025 [facility] Work Phone: Comment on above: Expected: 05/16/2024 (Approximate), Expires: 05/16/2025 Start: 05-16-2024 End: 05-16-2025 Lactate dehydrogenase [Enzymatic activity/volume] in Serum or Plasma by Lactate to pyruvate reaction Lactate dehydrogenase Lab Routine induced hypertension, antepartum Expected: 05/16/2024, Expires: 05/16/2025 [facility] Comment on above: Expected: 05/16/2024 , Expires: 05/16/2025 Start: 05-16-2024 End: 05-16-2025 Protein, urine, 24 hour Protein, urine, 24 hour Lab Routine induced hypertension, antepartum Expected: 05/16/2024 (Approximate), Expires: 05/16/2025 [facility] Comment on above: Expected: 05/16/2024 (Approximate), Expires: 05/16/2025 Start: 05-16-2024 End: 05-16-2025 Pt and ptt Pt and ptt Lab Routine induced hypertension, antepartum Expected: 05/16/2024, Expires: 05/16/2025 [facility] Comment on above: Expected: 05/16/2024 , Expires: 05/16/2025 Start: 05-16-2024 End: 05-16-2025 Urate [Mass/volume] in Serum or Plasma Uric acid Lab Routine induced hypertension, antepartum Expected: 05/16/2024 (Approximate), Expires: 05/16/2025 [facility] Comment on above: Expected: 05/16/2024 (Approximate), Expires: 05/16/2025 Start: 05-16-2024 End: 05-16-2025 Urea nitrogen [Mass/volume] in Serum or Plasma BUN Lab Routine induced hypertension, antepartum Expected: 05/16/2024, Expires: 05/16/2025 [facility] Comment on above: Expected: 05/16/2024 , Expires: 05/16/2025 Hemoglobin A1c/Hemoglobin.total in Blood Hemoglobin A1c Lab Routine induced hypertension, antepartum Ordered: 05/16/2024 [facility] Comment on above: Ordered: 05/16/2024 Payers Date Payer Category [facility]ayer Blue Cross Blue [facility] / Payer (Effective 2019-Present) Name: Debbi Prado Relation to Subscriber: Self Name: Debbi Prado Payer ID: Not on file Type: Not on file Address: [place] [id number] 1988 Unknown [id number] 2.16840.1.666120.3.57 9.2.593 1988 Unknown [id number] 2.16.840.1.556876.3.57 9.2.593 1988 Unknown [id number] 2.16840.1.116206.3.57 9.2.593 1988 Unknown [id number] 2.16840.1.887448.3.57 9.2.593 1988 Unknown [id number] 2.16.840.1.551953.3.57 9.2.593 1988 Unknown [id number] 2.16.840.1.544283.3.57 9.2.593 1988 Unknown [id number] 2.16.840.1.576399.3.57 9.2.593 1988 Unknown [id number] 2.16.840.1.372094.3.57 9.2.593 1988 Unknown [id number] 2.16.840.1.472595.3.57 9.2.593 1988 Unknown [id number] 2.16.840.1.805112.3.57 9.2.593 1988 Unknown [id number] 2.16.840.1.441538.3.57 9.2.593 1988 Unknown [id number] 2.16.840.1.758495.3.57 9.2.1286 1988 Unknown [id number] 2.16.840.1.545127.3.57 9.2.1259 1988 Unknown [id number] 2.16.840.1.946994.3.57 9.2.1259 1988 Unknown [id number] 2.16.840.1.612037.3.57 9.2.1258 1988 Unknown [id number] 2.16.840.1.486343.3.57 9.2.1258 1988 Unknown [id number] 2.16.840.1.511592.3.57 9.2.1258 1988 Unknown [id number] 2.16840.1.795976.3.57 9.2.1258 1988 Unknown [id number] 2.16840.1.160765.3.57 9.2.1258 1988 Unknown [id number] 2.16840.1.987434.3.57 9.2.1258 1988 Unknown [id number] 2.16840.1.677404.3.57 9.2.1258 1988 Unknown [id number] 2.16840.1.733323.3.57 9.2.1258 1988 Unknown [id number] 2.16.840.1.629134.3.57 9.2.1258 1988 Unknown [id number] 2.16840.1.658387.3.57 9.2.1258 1988 Unknown [id number] 2.16840.1.461119.3.57 9.2.125 1988 Unknown [id number] 2.16.840.1.521645.3.57 9.2.9 1959 Self-pay [id number] 1959 Unknown [id number] Unknown [id number] 2.16.840.1.403100.3.57 9.2.593 Social History Date Type Detail Facility Start: 11-27-2023 Tobacco smoking stat us [facility] Ex-smoker [facility] Start: 07-18-2006 End: 01-15-2021 History of tobacco use Current smoker [facility] Start: 07-18-2006 End: 01-15-2021 History of tobacco use Cigarette Smoker [facility] Start: 04-05-2024 End: 05-16-2024 Alcoholic beverage intake Lifetime non-drinker (finding) [facility] Start: 06-13-2023 History of Social function [facility] Start: 06-13-2023 Tobacco use panel [facility] Start: 06-13-2023 Alcohol Comment caffeine: occasional [facility] Start: 10-16-2023 [facility] Start: 1990 Sex assigned at Not on file [facility] Start: 09-29-2022 Gender identity Identifies as female gender (finding) [facility] History of Present illness Narrative 05-16-2024 MARLIN Pineda - 05/16/2024 2:20 PM EDT Note Date & Type Note Facility 05-16-2024 History of Presen t illness Narrative Reason for Appointment: Patient ID: Debbi Prado is a 33 y.o. female who presents for Routine Visit Patient presents today for Return OB appointment. MEDICATIONS Current Outpatient Medications Medication Instructions ondansetron (ZOFRAN) 4 mg, Oral, Every 6 hours PRN, Take 1 tablet by mouth every 6 hours as needed for nausea. ondansetron ODT (ZOFRAN-ODT) 4 mg, Oral, Every 6 hours PRN ALLERGIES Allergies Allergen Reactions Azithromycin Hives and Itching Other Reaction(s): Unknown Reaction PROBLEMS Active Ambulatory Problems Diagnosis Date Noted Bipolar 1 disorder ([facility]) 01/20/2023 Anxiety with depression 01/20/2023 Fatty liver 01/20/2023 Generalized anxiety disorder ([facility]) 01/20/2023 Irregular menses 01/20/2023 Irritable bowel syndrome with diarrhea 01/20/2023 Mild chronic gastritis 01/20/2023 Grief at loss of child ([facility]) 10/06/2023 Persistent depressive disorder ([facility]) 10/06/2023 Syncope 03/15/2024 Low-lying placenta 03/15/2024 Dizziness 03/15/2024 Dehydration 03/15/2024 Migraine without status migrainosus, not intractable (CMS/HCC) 03/15/2024 Irregular uterine contractions 03/15/2024 Chronic fatigue 04/05/2024 Resolved Ambulatory Problems Diagnosis Date Noted No Resolved Ambulatory Problems Past Medical History: Diagnosis Date Bipolar disorder (CMS/HCC) Depression (CMS/HCC) Herpes IBS (irritable bowel syndrome) Marijuana use Panic attack (CMS/HCC) PTSD (post-traumatic stress disorder) (CMS/HCC) 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) Thyroid enlargement (CMS/HCC) HISTORY PAST MEDICAL HISTORY SOCIAL HISTORY Past [...] date: 07/18/2006 Quit date: 01/15/2021 Years since quittin.3 Smokeless tobacco: Not on file Substance Use [...] Objective: Physical Exam Constitutional: Appearance: Normal appearance. She is normal weight. HENT: Head: Normocephalic. Cardiovascular: Rate and Rhythm: Normal rate. Pulses: Normal pulses. Pulmonary: Effort: Pulmonary effort is normal. Breath sounds: Normal breath sounds. Abdominal: Palpations: Abdomen is soft. Musculoskeletal: General: Normal range of motion. Neurological: General: No focal deficit present. Mental Status: She is alert and oriented to person, place, and time. Psychiatric: Mood and Affect: Mood normal. Behavior: Behavior normal. Thought Content: Thought content normal. Judgment: Judgment normal. Vitals and nursing note reviewed. Vitals: Estimated body mass index is 33.78 kg/m as calculated from the following: Height as of 01/25/23: 5' 5 . Weight as of this encounter: 203 lb. BP: 124/72 Patient's last menstrual period was 09/26/2023. ASSESSMENT & PLAN ICD-10-CM 1. Third trimester Z34.93 POCT urinalysis dipstick manually resulted 2. 32 weeks gestation of Z3A.32 Return OB: Patient presents today for a routine obstetrics appointment. Patient is currently 32w3d . Patient states she is doing well but has complaints of being tired with headache and nausea due to current . Patient complaining of having a headache for 3 days now and her hands and feet are not getting circulation/feels like its asleep. Patient has verbalizes frequent movement. labor precautions was discussed/given and patient was instructed to perform kick counts three times a day. Patient will be given blood work to rule out pre eclampsia, ua with in normal limits Orders Placed This Encounter Procedures POCT urinalysis dipstick manually resulted Follow Up: Patient is to return to office in 2 week for routine OB appointment. Documented by Liane Jennings MA on behalf of: MARLIN Pineda documented in this encounter [facility] History of Present illness Narrative [...] Problems Diagnosis Date Noted Bipolar 1 disorder ([facility]) 01/20/2023 Anxiety with depression 01/20/2023 Fatty liver 01/20/2023 Generalized anxiety disorder ([facility]) 01/20/2023 Irregular menses 01/20/2023 Irritable bowel syndrome with diarrhea 01/20/2023 Mild chronic gastritis 01/20/2023 Grief at loss of child ([facility]) 10/06/2023 Persistent depressive disorder ([facility]) 10/06/2023 Syncope 03/15/2024 Low-lying placenta 03/15/2024 Dizziness 03/15/2024 Dehydration 03/15/2024 Migraine without status migrainosus, not intractable ([facility]) 03/15/2024 Irregular uterine contractions 03/15/2024 Chronic fatigue 04/05/2024 Resolved Ambulatory Problems Diagnosis Date Noted No Resolved Ambulatory Problems Past Medical History: Diagnosis Date Bipolar disorder ([facility]) Depression ([facility]) Herpes IBS (irritable bowel syndrome) Marijuana use Panic attack ([facility]) PTSD (post-traumatic stress disorder) ([facility]) 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) Thyroid enlargement ([facility]) HISTORY PAST MEDICAL HISTORY SOCIAL HISTORY Past Medical History: Diagnosis Date Bipolar disorder ([facility]) Depression ([facility]) Fatty liver Herpes IBS (irritable bowel syndrome) Irritable bowel syndrome with diarrhea Marijuana use Mild chronic gastritis Panic attack ([facility]) PTSD (post-traumatic stress disorder) ([facility]) 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) Thyroid enlargement ([facility]) Social History Tobacco Use Smoking status: Former [...] 12/09/2022 COLONOSCOPY 12/28/2013 Dr Parsons COLONOSCOPY 12/30/2016 aD Guerra EGD 05/12/2012 Dr Christopher EGD 12/28/2013 [...] nursing note reviewed. Exam conducted with a accredited farm manager present. Vitals: Estimated body mass index is [...] of: MARLIN Pineda documented in this encounter [facility] Clinical Note 12-09-2022 Note Date & Type [...] Spinal with Duramorph. SURGEON: Becki Mae D.O. SUPERVISOR DOCK: DANIELA Koch URINE OUTPUT: Yellow and clear. [...] the Recovery Room in stable condition. [facility] Evaluation note Note Date & Type Note Facility Evaluation note Diagnosis Third trimester state, incidental 30 weeks gestation of Nausea and vomiting, unspecified vomiting type documented in this encounter [facility] Evaluation note Note Date & Type Note Facility Evaluation note Diagnosis Third trimester state, incidental 32 weeks gestation of induced hypertension, antepartum Transient hypertension of , antepartum Nonintractable headache, unspecified chronicity pattern, unspecified headache type Nausea and vomiting in Unspecified vomiting of , unspecified as to episode of care Exposure to STD documented in this encounter [facility] Healthcare Summary Purpose Family History No Family [...] content) DATE CREATED AUTHOR 04/24/2020 [facility] DATE CREATED AUTHOR AUTHOR'S ORGANIZ ATION 05/26/2020 [facility] DATE CREATED AUTHOR AUTHOR'S ORGANIZ ATION 08/02/2021 [facility] DATE CREATED AUTHOR AUTHOR'S ORGANIZ ATION 12/24/[address]22 [facility] DATE CREATED AUTHOR AUTHOR'S ORGANIZ ATION 01/21/2024 [facility] DATE CREATED AUTHOR AUTHOR'S ORGANIZ ATION 05/18/2024 [facility] EPIC Care Teams (unrecognized sec tion and content) [facility] Relationship Specialty Start Date End Date Janice Dinero, DO [address] [place] [address] PCP - General Family Medicine 12/20/22 [facility] Relationship Specialty Start Date End Date RumShelbie casasty, DO [address] [place] [address] PCP - General Family Medicine 12/20/22 [facility] Relationship Specialty Start Date End Date RumJanice casas, DO [address] [place] [address] PCP - General Family Medicine 12/20/22 [facility] Relationship Specialty Start Date End Date RumShelbie casasty, DO [address] [place] [address] PCP - General Family Medicine 12/20/22 [facility] Relationship Specialty Start Date End Date Shelbie Dineroty, DO [address] [place] [address] PCP - General Family Medicine 12/20/22 Reason [...] BE BASED ON THE PRIMARY CLINICAL RECORDS. [facility]. provides no warranty or guarantee of the accuracy or completeness of information in this document.
[2024-05-18 14:58] LABS: Total Protein Urine Random 20.7 mg/dL (<=11.9); Total Volume 24 Hour Urine 1700 mL/24hr
[2024-05-18 15:00] LABS: Total Protein 24 Hour Urine 351.9 mg/24hr (<=149.1)
== END 2024-05-18 14:29 | disposition home or self-care (01) ==
LOC: LAB 14:28
PROVIDERS: PCP Family Medicine; Visit Provider Physician Assistant
DX: O13.9 Gestational [pregnancy-induced] hypertension without significant proteinuria, unspecified trimester (principal)
CPT/HCPCS: 81050; 84156

== ENCOUNTER 2024-06-13 18:53 | Outpatient (REF) | payer BC, SELFPAY ==
--- OUTSIDE RECORDS SUMMARY | 2024-06-13 18:58 | XMS_ITS | CCD ---
Author Organization [facility] Care Team Providers Care Museum Tour Guide Name Role Phone JUAN ., DR MARTIN [...] Unavailable ZIEBER, DR FREDY Copeland Consulting [facility] RALPH CISNEROS Attending Unavailable JOSE LEONARDO Attending Unavailable JOSE LEONARDO Referring Unavailable SERVICES, [facility] Unava ilable Janice Dinero DO Primary Care Provider TU, SCOTT Attending Unavailable TU, SCOTT Attending Unavailable TU, SCOTT Attending Unavailable TU, SCOTT Attending Unavailable TU, SCOTT Attending Unavailable TU, SCOTT Attending Unavailable PUMA, YENI Attending Unavailable PUMA, YENI Attending Unavailable TU, SCOTT Attending Unavailable TU, SCOTT Attending Unavailable TU, SCOTT Attending Unavailable PUMA, YENI Attending Unavailable PUMA, YENI Attending Unavailable PUMA, YENI Attending Unavailable ASHLEE TORRES Admitting Unavailable ASHLEE TORRES Attending Unavailable SERVICES, [facility] Unava ilable Allergies Allergy Classification Reported Allergen(s) Allergy Type Date of Onset Reaction(s) Facility Macrolides (antibiotic) (1 source) Azithromycin; Translations: [AZITHROMYCIN] Drug Allergy 7 [facility] Repository (1 source) Azithromycin Drug Allergy 4 [facility] Repository (16 sources) Azithromycin; Translations: [AZITHROMYCIN] Drug Allergy 7 Hives, Itching [facility] Work Phone: Medications Current Medications Medication Drug Class(es) Dates Sig (Normalized) Sig (Original) polysaccharide iron complex 391 mg oral capsule (5 sources) Start: 06-13-2024 End: 07-13-2024 take 1 capsule by mouth once daily iron polysaccharides (ProFe) 391.3 (180 Fe) MG capsule Indications: Anemia during in third trimester Take 1 capsule (391.3 mg) by mouth Daily 30 capsule 06/13/2024 07/13/2024 Active Start: 04-05-2024 End: 05-05-2024 take 1 capsule by mouth once daily iron polysaccharides (ProFe) 391.3 (180 Fe) MG capsule Indications: 26 weeks gestation of , Chronic fatigue Take 1 capsule (391.3 mg) by mouth Daily 30 capsule 6 04/05/2024 05/05/2024 Active Completed/Discontinued Medications Medication Drug Class(es) Dates Sig (Normalized) Sig (Original) Magnesium (10 sources) Start: 05-16-2024 End: 06-13-2024 take 1 tablet by mouth once daily magnesium 200 MG tablet Indications: Nonintractable headache, unspecified chronicity pattern, unspecified headache type Take 1 tablet (200 mg) by mouth Daily 30 tablet 1 05/16/2024 06/13/2024 Discontinued Start: 05-16-2024 End: 06-15-2024 take 1 tablet by mouth once daily magnesium 200 MG tablet Indications: Nonintractable headache, unspecified chronicity pattern, unspecified headache type Take 1 tablet (200 mg) by mouth Daily 30 tablet 1 05/16/2024 06/15/2024 Active ondansetron 4 mg disintegrating oral tablet (20 sources) Serotonin-3 Receptor Antagonist Start: 04-05-2024 End: 06-13-2024 take 1 tablet by mouth every six hours as needed for nausea and vomiting and nausea and nausea ondansetron (Zofran) 4 MG tablet Indications: Nausea Take 1 tablet (4 mg) by mouth every 6 (six) hours if needed for nausea or vomiting for up to 120 doses Take 1 tablet by mouth every 6 hours as needed for nausea. 30 tablet 3 04/05/2024 06/13/2024 Discontinued Start: 05-17-2022 End: 06-15-2024 take 1 tablet by mouth every six hours for nausea ondansetron ODT (Zofran-ODT) 4 MG disintegrating tablet Indications: Nausea and vomiting, unspecified vomiting type Take 1 tablet (4 mg) by mouth every 6 (six) hours if needed for nausea or vomiting 30 tablet 05/02/2024 06/13/2024 Discontinued terconazole 4 mg/ml vaginal cream (2 sources) Azole Antifungal Start: 06-05-2024 End: 06-13-2024 terconazole (Terazol 7) 0.4 % vaginal cream Indications: Yeast infection Insert 1 applicator into the vagina at bedtime for 7 days 45 g 06/05/2024 06/13/2024 Discontinued valACYclovir 500 mg oral tablet (10 sources) Herpesvirus Nucleoside Analog DNA Polymerase Inhibitor, Herpes Simplex Virus Nucleoside Analog DNA Polymerase Inhibitor, Herpes Zoster Virus Nucleoside Analog DNA Polymerase Inhibitor Start: 05-16-2024 End: 11-12-2024 take 1 tablet by mouth once daily valACYclovir (Valtrex) 500 MG tablet Indications: Exposure to STD Take 1 tablet (500 mg) by mouth Daily 30 tablet 5 05/16/2024 06/13/2024 Discontinued Problems Active Problems Problem Classification Problem Date Documented Da te Episodic/Chronic Adjustment disorders (15 sources) Grief finding; Translations: [Adjustment disorder with depressed mood] Onset: 10-06-2023 10-06-2023 Chronic Anxiety disorders (20 sources) Mixed anxiety and depressive disorder; Translations: [Other specified anxiety disorders] Onset: 01-20-2023 08-08-2023 Chronic Conditions associated with dizziness or vertigo (15 sources) Dizziness; Translations: [Dizziness and giddiness] Onset: 03-15-2024 03-15-2024 Episodic Diabetes mellitus without complication (1 source) Other abnormal glucose; Translations: [OTHER ABNORMAL GLUCOSE] Onset: 10-31-2022 Episodic Diabetes or abnormal glucose tolerance complicating ; childbirth; or the puerperium (4 sources) Abnormal glucose complicating ; Translations: [ABNORMAL GLUCOSE COMP ] Onset: 10-26-2022 Episodic E Codes: Fall (1 source) Fall Onset: 01-20-2024 Early or threatened labor (19 sources) False labor before 37 completed weeks of gestation, third trimester; Translations: [Irregular uterine contractions] Onset: 10-27-2022 Episodic Fluid and electrolyte disorders (15 sources) Dehydration; Translations: [Dehydration] Onset: 03-15-2024 03-15-2024 Episodic Gastritis and duodenitis (15 sources) Chronic gastritis; Translations: [Unspecified chronic gastritis without bleeding] Onset: 01-20-2023 01-20-2023 Chronic Headache; including migraine (15 sources) Migraine; Translations: [Migraine, unspecified, not intractable, without status migrainosus] Onset: 03-15-2024 03-15-2024 Chronic Headache; including migraine (2 sources) Headache; Translations: [Nonintractable headache, unspecified chronicity pattern, unspecified headache type] 05-16-2024 Episodic Headache; including migraine (1 source) Headache; including migraine; Translations: [Headache, unspecified] Onset: 06-02-2024 Hemorrhage during ; abruptio placenta; placenta previa (15 sources) Low lying placenta; Translations: [Low lying [...] Onset: 07-23-2022 05-16-2024 Episodic Malaise and fatigue (15 sources) Fatigue; Translations: [Chronic fatigue, unspecified] Onset: 04-05-2024 04-05-2024 Chronic Menstrual disorders (15 sources) Irregular periods; Translations: [Irregular menstruation, unspecified] Onset: 01-20-2023 01-20-2023 Chronic Mood disorders (20 sources) Bipolar disorder, unspecified; Translations: [Bipolar I disorder] Onset: 12-14-2022 01-20-2023 Chronic Nausea and vomiting (3 sources) Nausea; Translations: [Nausea and vomiting] Onset: 11-03-2022 05-02-2024 Episodic Open wounds of head; neck; and trunk (1 source) Laceration without foreign body of right ear, initial encounter; Translations: [Laceration without foreign body of right ear, initial encounter] Onset: 01-20-2024 Episodic Other aftercare (1 source) Other longterm (current) drug therapy; Translations: [OTH WIREWORKER CURRENT DRUG THERAPY] Onset: 12-14-2022 Episodic Other [...] CHILDBIRTH] Onset: 12-14-2022 Episodic Other complications of (2 sources) Anemia of ; Translations: [Anemia complicating , third trimester] 06-13-2024 Chronic Other complications of (1 source) Other specified related conditions, third trimester; Translations: [OTH SPEC PREG RELATED COND 3RD TRI] Onset: 11-03-2022 Episodic Other complications of (5 sources) Vomiting of , unspecified; Translations: [Unspecified vomiting of , unspecified as to episode of care or not applicable] Onset: 06-16-2022 Episodic Other complications of (1 source) Other specified related conditions, unspecified trimester; Translations: [Other specified related conditions, unspecified trimester] Onset: 06-02-2024 Episodic Other gastrointestinal disorders (1 source) Irritable bowel syndrome without diarrhea; Translations: [IRRITABLE BOWEL SYND W/O DIARRHEA] Onset: 12-14-2022 Chronic Other gastrointestinal disorders (15 sources) Irritable bowel syndrome with diarrhea; Translations: [Irritable bowel syndrome with diarrhea] Onset: 01-20-2023 01-20-2023 Chronic Other liver diseases (1 source) Fatty (change of) liver, not elsewhere classified; Translations: [FATTY CHANGE LIVER NEC] Onset: 12-14-2022 Chronic Other liver diseases (15 sources) Steatosis of liver; Translations: [Fatty (change of) liver, not elsewhere classified] Onset: 01-20-2023 01-20-2023 Chronic Other and delivery including normal (20 sources) Single live ; Translations: [Encounter for [...] [32 weeks gestation of ] 05-16-2024 Episodic Residual codes; unclassified (2 sources) Gestation period, 34 weeks; Translations: [34 weeks gestation of ] 05-30-2024 Episodic Residual codes; unclassified (2 sources) Gestation period, 36 weeks; Translations: [36 weeks gestation of ] 06-13-2024 Episodic Screening and history of mental health and substance abuse codes (1 source) Personal history of nicotine dependence; Translations: [PERSONAL HISTORY OF NICOTINE DEPEND] Onset: 12-14-2022 Episodic Substance-related disorders (3 sources) Drug use complicating childbirth; Translations: [Cannabis use, unspecified, uncomplicated] Onset: 11-03-2022 Episodic Syncope (16 sources) Syncope and collapse; Translations: [Syncope] Onset: 01-20-2024 03-15-2024 Episodic Unclassified (1 source) EMS Onset: 01-20-2024 Unclassified (1 source) Decreased Movement Onset: 06-02-2024 Viral infection (7 sources) Herpesviral infection, unspecified; Translations: [Herpes simplex] Onset: 12-14-2022 05-30-2024 Episodic Past or Other Problems Problem Classification Problem Date Documented Da te Episodic/Chronic Other complications of (1 source) Mild hyperemesis gravidarum; Translations: [MILD HYPEREMESIS GRAVIDARUM] Onset: 06-20-2022 Episodic Residual codes; unclassified (1 source) 13 weeks gestation of ; Translations: [13 WEEKS GESTATION OF ] Onset: 06-20-2022 Episodic Results Test Name Value Interpretation Reference Range Facility Urinalysis macro (dipstick) panel (U)on 06-13-2024 Bilirubin, UA Negative Negative - 4(70) +++ mg/dL [facility] Blood, UA Negative Negative - 50 Nelson/mcL [facility] Clarity, UA Clear [facility] Color, UA Yellow [facility] Glucose, UA Negative Negative - 1999(110) ++++ mg/dL [facility] Interpretation and review of laboratory results Abnormal [facility] Ketones, UA Negative Negative - 160(16) ++++ mg/dL [facility] Leukocytes, UA Negative Negative - 500+++ Antonio/mcL [facility] Nitrite, UA Negative Negative - Positive [facility] pH, UA 6 5 - 9 [facility] Protein, UA Trace Negative - 2000(20) ++++ mg/dL [facility] Spec Grav, UA 1.025 1 - 1.03 [facility] Urobilinogen, UA 0.2 0.2 - 12 mg/dL [facility] URINALYSISon 06-02-2024 Bilirubin Ql (U) Negative Normal NEG [facility] Comment on above: Performed By: #### U A #### [facility] ([id number]) [address], [address] [place] [address] BLOOD/HGB Negative Normal NEG [facility] Comment on above: Performed By: #### U A #### [facility] ([id number]) [address], [address] [place] [address] Color (U) YELLOW Normal YELLOW [facility] Comment on above: Performed By: #### U A #### [facility] ([id number]) [address], [address] [place] [address] Glucose Ql (U) 150 mg/dL Abnormal NEG [facility] Comment on above: Performed By: #### U A #### [facility] ([id number]) [address], [address] [place] [address] Ketones Ql (U) Trace Abnormal NEG [facility] Comment on above: Performed By: #### U A #### [facility] ([id number]) [address], [address] [place] [address] Leukocyte esterase Test strip Ql (U) Negative Normal NEG [facility] Comment on above: Performed By: #### U A #### [facility] ([id number]) [address], [address] [place] [address] MUCOUS PRESENT Abnormal NONE [facility] Comment on above: Performed By: #### U A #### [facility] ([id number]) [address], [address] [place] [address] Nitrite Ql (U) Negative Normal NEG [facility] Comment on above: Performed By: #### U A #### [facility] ([id number]) [address], [address] [place] [address] pH (U) 6.0 [pH] Normal 5.0-8.5 [facility] Comment on above: Performed By: #### U A #### [facility] ([id number]) [address], [address] [place] [address] Protein Ql (U) 30 mg/dL Abnormal NEG [facility] Comment on above: Performed By: #### U A #### [facility] ([id number]) [address], [address] [place] [address] R.B.CELLS 1 /hpf Normal 0-5 [facility] Comment on above: Performed By: #### U A #### [facility] ([id number]) [address], [address] [place] [address] Specific gravity (U) [Rel density] 1.027 Normal 1.003-1.035 [facility] Comment on above: Performed By: #### U A #### [facility] ([id number]) [address] [place] [address] SQUAMOUS EPITHELIUM 2 /hpf Normal 0-5 [facility] Comment on above: Performed By: #### U A #### [facility] ([id number]) [address] [place] [address] TURBIDITY CLEAR Normal CLEAR [facility] Comment on above: Performed By: #### U A #### [facility] ([id number]) [address], [address] [place] [address] Urobilinogen (U) [Mass/Vol] mg/dL Normal <1.1 [facility] Comment on above: Performed By: #### U A #### [facility] ([id number]) [address] [place] [address] W.B.CELLS 3 /hpf Normal 0-5 [facility] Comment on above: Performed By: #### U A #### [facility] ([id number]) [address] [place] [address] URINE CULTUREon 06-02-2024 Bacteria identified Cx Nom (U) CULTURE RESULTS <10,000 ORGANISMS/ML NORMAL URO GENITAL ALOK Normal [facility] Comment on above: Performed By: #### 6 30-4 #### [facility] ([id number]) [address] [place] [address] VAGINITIS PANEL PCRon 2023 VAGINITIS PANEL PCR BACT. VAGINOSIS DNA Not detected (qualifier value) Qualitative results are reported based on detection and quantitation of targeted organism markers which include: Lactobacillus spp. (L. crispatus and L. jensenii), Gardnerella vaginalis, Atopobium vaginae, Bacterial Vaginosis Associated Bacteria-2 (BVAB-2) and Megasphaera-1 RENEE SPECIES DNA Detected (qualifier value) Renee species result based on detection of one or more of the following species: C. albicans, C. tropicalis, C. parapsilosis or C. dubliniensis RENEE KRUSEI DNA Not detected (qualifier value) No Renee krusei detected RENEE GLABRATA DNA Not detected (qualifier value) No Renee glabrata detected TRICHOMONAS VAG DNA Not detected (qualifier value) No Trichomonas vaginalis detected NOTE BD MAX Vaginal Panel has not been evaluated for patients under 18 years old. Results for these patients should be reviewed and assessed in accordance with clinical presentation to determine patient diagnosis. Normal [facility] Comment on above: Performed By: #### V PPCR #### [facility] ([id number]) [address] [place] [address], [address] [place] [address] TB TOTAL PROTEIN 24 HOUR UR INEon 05-18-2024 Interpretation and review of laboratory results Abnormal [facility] Protein (U) [Mass/Vol] 20.7 mg/dL High NINF - 11.9 mg/dL [facility] TBH TOTAL PROTEIN 24 HOUR URINE 351.9 High [facility] TOTAL VOLUME 24 HOUR URINE 1700 mL/24hr [facility] ALL CBC WITH AUTO DIFFon BASOPHILS ABSOLUTE AUTO 0.1 [facility] Basophils/100 WBC (Bld) 0.4 % 0.2 - 2.0 % [facility] Eosinophils/100 WBC (Bld) 1 % 0.9 - 7.0 % [facility] Erythrocyte distribution width (RBC) [Ratio] 15 % 11.0 - 15.0 % [facility] Hematocrit (Bld) [Volume fraction] 30.1 % Low 36.0 - 48.0 % [facility] Hemoglobin (Bld) [Mass/Vol] 9.1 g/dL Low 12.0 - 16.0 g/dL [facility] IMMATURE GRANULOCYTES ABS AUTO 0.43 High [facility] Immature granulocytes/100 WBC (Bld) 3.2 % High 0.0 - 0.5 % [facility] Interpretation and review of laboratory results Abnormal [facility] LYMPHOCYTES ABSOLUTE AUTO 2.3 [facility] Lymphocytes/100 WBC (Bld) 17 % Low 20.5 - 60.0 % [facility] MCH (RBC) [Entitic mass] 24.5 pg Low 26.7 - 34.0 pg [facility] MCHC (RBC) [Mass/Vol] 30.2 g/dL 29.9 - 35.2 g/dL [facility] MCV (RBC) [Entitic vol] 81.1 fL 81.0 - 99.0 fL [facility] MONOCYTES ABSOLUTE AUTO 1.1 High [facility] Monocytes/100 WBC (Bld) 8.1 % 1.7 - 12.0 % [facility] NEUTROPHILS ABSOLUTE AUTO 9.5 High [facility] Neutrophils/100 WBC (Bld) 70.3 % 43.0 - 75.0 % [facility] Platelet mean volume (Bld) [Entitic vol] 9.8 fL 9.5 - 13.5 fL [facility] TBH EO # 0.1 [facility] TB PLT [address] [facility] RBC 3.71 Low [facility] TB WBC 13.5 High [facility] Urinalysis macro (dipstick) panel (U)on 05-16-2024 Bilirubin, UA Positive Negative - 4(70) +++ mg/dL [facility] Comment on above: small Blood, UA Positive Negative - 50 Nelson/mcL [facility] Comment on above: blood Clarity, UA Clear [facility] Color, UA Leonila [facility] Glucose, UA Negative Negative - 1999(110) ++++ mg/dL [facility] Interpretation and review of laboratory results Abnormal [facility] Ketones, UA Positive Negative - 160(16) ++++ mg/dL [facility] Comment on above: trace Leukocytes, UA Negative Negative - 500+++ Antonio/mcL [facility] Nitrite, UA Negative Negative - Positive [facility] pH, UA 6 5 - 9 [facility] Protein, UA Positive Negative - 1999(20) ++++ mg/dL [facility] Comment on above: 30 mg Spec Grav, UA 1.025 1 - 1.03 [facility] Urobilinogen, UA 0.2 0.2 - 12 mg/dL [facility] TBH UA (CLEAN/CATCH) [employer]/CARMELITA RO IF IND.on 05-07-2024 BILIRUBIN URINE Negative NEGATIVE [facility] BLOOD URINE Negative NEGATIVE [facility] Clarity (U) CLEAR CLEAR [facility] Color (U) LT YELLOW YELLOW [facility] GLUCOSE URINE UA 250 mg/dL Abnormal NEGATIVE [facility] Interpretation and review of laboratory results Abnormal [facility] Ketones Ql (U) Negative NEGATIVE mg/dL [facility] Leukocyte esterase Test strip Ql (U) Negative NEGATIVE [facility] NITRITE URINE Negative NEGATIVE [facility] pH (U) 6.5 [pH] 5.0 - 9.0 [facility] PROTEIN URINE Negative NEG/TRACE mg/dL [facility] SPECIFIC GRAVITY URINE 1.015 1.005 - 1.025 [facility] URINE MICROSCOPIC INDICATED NO [facility] UROBILINOGEN URINE 0.2 EU/dL 0.2 - 1.0 EU/dL [facility] Urinalysis macro (dipstick) panel (U)on 05-02-2024 Bilirubin, UA Negative Negative - 4(70) +++ mg/dL [facility] Blood, UA Negative Negative - 50 Nelson/mcL [facility] Clarity, UA Clear [facility] Color, UA Yellow [facility] Glucose, UA Negative Negative - 2000(110) ++++ mg/dL [facility] Interpretation and review of laboratory results Abnormal [facility] Ketones, UA Positive Negative - 160(16) ++++ mg/dL [facility] Leukocytes, UA Negative Negative - 500+++ Antonio/mcL [facility] Nitrite, UA Negative Negative - Positive [facility] pH, UA 6 5 - 9 [facility] Protein, UA Positive Negative - 1999(20) ++++ mg/dL [facility] Spec Grav, UA 1.025 1 - 1.03 [facility] Urobilinogen, UA 1.0 0.2 - 12 mg/dL [facility] CBC AND AUTO DIFFon 01-20-20 24 ABSOLUTE BASOPHIL 0.1 X10E9/L Normal 0.0-0.2 [facility] Comment on above: Performed By: #### C BCA, CMP, [id number] #### [facility] ([id number]) [address] [place] [address] ABSOLUTE NEUTROPHIL 8.1 X10E9/L High 1.5-6.6 [facility] Comment on above: Performed By: #### C MELYSSA NICOLE, [id number] #### [facility] ([id number]) [address] [place] [address] Basophils/100 WBC (Bld) 0.5 % Normal [facility] Comment on above: Performed By: #### Melia NICOLE CMP, 49461-7 #### [facility] ([id number]) [address] [place] [address] Eosinophils (Bld) [#/Vol] 0.2 10*3/uL Normal 0.0-0.4 [facility] Comment on above: Performed By: #### Melia NICOLE CMP, 07295-2 #### [facility] ([id number]) [address] [place] [address] Eosinophils/100 WBC (Bld) 1.4 % Normal [facility] Comment on above: Performed By: #### Melia NICOLE CMP, [id number] #### [facility] ([id number]) [address] [place] [address] Erythrocyte distribution width (RBC) [Ratio] 14.4 % Normal 11.5-15.0 [facility] Comment on above: Performed By: #### Melia NICOLE CMP, 10354-6 #### [facility] ([id number]) [address] [place] [address] Hematocrit (Bld) [Volume fraction] 32.4 % Low 35-47 [facility] Comment on above: Performed By: #### Melia NICOLE CMP, [id number] #### [facility] ([id number]) [address] [place] [address] Hemoglobin (Bld) [Mass/Vol] 10.9 g/dL Low 11.7-15.5 [facility] Comment on above: Performed By: #### Melia NICOLE CMP, [id number] #### [facility] ([id number]) [address] [place] [address] 58093 Lymphocytes (Bld) [#/Vol] 2.0 10*3/uL Normal 1.0-3.5 [facility] Comment on above: Performed By: #### Melia NICOLE CMP, 93716-6 #### [facility] ([id number]) [address] [place] [address] 56112 Lymphocytes/100 WBC (Bld) 17.8 % Normal [facility] Comment on above: Performed By: #### Melia NICOLE CMP, 09961-5 #### [facility] ([id number]) [address] [place] [address] 71265 MCH (RBC) [Entitic mass] 28.4 pg Normal 27-34 [facility] Comment on above: Performed By: #### Melia NICOLE [facility], 11098-8 #### [facility] ([id number]) [address] [place] [address] 97097 MCHC (RBC) [Mass/Vol] 33.5 g/dL Normal 32-36 [facility] Comment on above: Performed By: #### Melia NICOLE CMP, 17255-5 #### [facility] ([id number]) [address] [place] [address] 63223 MCV (RBC) [Entitic vol] 85 fL Normal 80-100 [facility] Comment on above: Performed By: #### Melia NICOLE CMP, 52982-3 #### [facility] ([id number]) [address] [place] [address] 67768 Monocytes (Bld) [#/Vol] 0.8 10*3/uL Normal 0-0.9 [facility] Comment on above: Performed By: #### Melia NICOLE CMP, 26852-2 #### [facility] ([id number]) [address] [place] [address] 51043 Monocytes/100 WBC (Bld) 7.1 % Normal [facility] Comment on above: Performed By: #### Melia NICOLE CMP, 67210-4 #### [facility] ([id number]) [address] [place] [address] 96776 Neutrophils/100 WBC (Bld) 73.2 % Normal [facility] Comment on above: Performed By: #### Melia NICOLE CMP, 44433-6 #### [facility] ([id number]) [address] [place] [address] 70351 Platelet mean volume (Bld) [Entitic vol] 7.5 fL Normal 7-12 [facility] Comment on above: Performed By: #### Melia NICOLE CMP, 37666-4 #### [facility] ([id number]) [address] [place] [address] 00258 Platelets (Bld) [#/Vol] 300 10*3/uL Normal 150-450 [facility] Comment on above: Performed By: #### Melia NICOLE CMP, 94115-9 #### [facility] ([id number]) [address] [place] [address] 37284 RBC COUNT 3.83 X10E12/L Normal 3.80-5.20 [facility] Comment on above: Performed By: #### Melia NICOLE CMP, 12259-8 #### [facility] ([id number]) [address] [place] [address] 81760 WBC (Bld) [#/Vol] 11.1 10*3/uL High 4.0-11.0 [facility] Comment on above: Performed By: #### C BCA, CMP, 17810-9 #### [facility] ([id number]) [address] [place] [address] 30128 COMPREHENSIVE METABOLIC PANE Yassine 01-20-2024 Albumin [Mass/Vol] 3.2 g/dL Normal 3.2-5.3 [facility] Comment on above: Performed By: #### C BCA, CMP, 36785-0 #### [facility] ([id number]) [address] [place] [address] 53555 ALP [Catalytic activity/Vol] 49 U/L Normal 39-130 [facility] Comment on above: Performed By: #### C BCA, CMP, 81019-5 #### [facility] ([id number]) [address] [place] [address] 47594 ALT [Catalytic activity/Vol] 16 U/L Normal 0-31 [facility] Comment on above: Performed By: #### C BCA, CMP, 75965-8 #### [facility] ([id number]) [address] [place] [address] 85926 Anion gap [Moles/Vol] 7 mmol/L Normal 5-15 [facility] Comment on above: Performed By: #### C BCA, CMP, 52896-1 #### [facility] ([id number]) [address] [place] [address] 06784 AST [Catalytic activity/Vol] 20 U/L Normal 0-41 [facility] Comment on above: Performed By: #### C BCA, CMP, 11910-1 #### [facility] ([id number]) [address] [place] [address] 71502 Bilirubin [Mass/Vol] 0.3 mg/dL Normal 0.3-1.2 [facility] Comment on above: Performed By: #### C BCA, CMP, 57804-7 #### [facility] ([id number]) [address] [place] [address] 90099 Calcium [Mass/Vol] 8.6 mg/dL Normal 8.5-10.5 [facility] Comment on above: Performed By: #### C MELYSSA NICOLE, 88988-8 #### [facility] ([id number]) [address] [place] [address] 18545 Chloride [Moles/Vol] 99 mmol/L Normal 98-109 [facility] Comment on above: Performed By: #### C MELYSSA NICOLE, 86322-7 #### [facility] ([id number]) [address] [place] [address] 94473 CO2 [Moles/Vol] 22 mmol/L Normal 22-32 [facility] Comment on above: Performed By: #### C MELYSSA NICOLE, 06502-4 #### [facility] ([id number]) [address] [place] [address] 04178 Creatinine [Mass/Vol] 0.56 mg/dL Normal 0.40-1.00 [facility] Comment on above: Result Comment: METH OD TRACEABLE TO IDMS STANDARD Performed By: #### C MELYSSA NICOLE, 00061-2 #### [facility] ([id number]) [address] [place] [address] 38748 eGFR (CKD-EPI) NON-RACE DEPENDENT >90 Normal >59 [facility] Comment on above: Result Comment: Reported eGFR is based on the CKD-EPI 2020 equation that does not use a race coefficient. Performed By: #### C MELYSSA NICOLE, 70972-5 #### [facility] ([id number]) [address] [place] [address] 39910 Glucose [Mass/Vol] 102 mg/dL High 65-99 [facility] Comment on above: Performed By: #### Melia NICOLE CMP, 85585-6 #### [facility] ([id number]) [address] [place] [address] 36361 Potassium [Moles/Vol] 3.7 mmol/L Normal 3.5-5.0 [facility] Comment on above: Performed By: #### C COREY [facility], 06854-3 #### [facility] ([id number]) [address] [place] [address] 84315 Protein [Mass/Vol] 7.2 g/dL Normal 6.0-8.0 [facility] Comment on above: Performed By: #### C COREY [facility], 97613-8 #### [facility] ([id number]) [address] [place] [address] 03105 Sodium [Moles/Vol] 128 mmol/L Low 134-146 [facility] Comment on above: Performed By: #### C COREY [facility], 98147-9 #### [facility] ([id number]) [address] [place] [address] 18921 Urea nitrogen [Mass/Vol] 9 mg/dL Normal 5-23 [facility] Comment on above: Performed By: #### C COREY [facility], 77212-8 #### [facility] ([id number]) [address] [place] [address] BRAIN WO CONTon CT BRAIN WO [...] Mckinley MD on 01/20/2024 2:56 PM Normal [facility] CT CERVICAL SPINE WO CONTon 01-20-2024 [...] Corrales MD on 01/20/2024 2:52 PM Normal [facility] Troponin I.cardiac High sens itivity method [Mass/Vol]on 01-20-2024 1 HOUR TROP I, HIGH SENSITIVITY <2 Normal <16 [facility] Comment on above: Performed By: #### 8 9579-7 #### [facility] ([id number]) [address] [place] [address] 01086 TROPONIN I, HIGH SENSITIVITY <2 Normal <16 [facility] Comment on above: Performed By: #### C BCA, CMP, 14396-8 #### [facility] ([id number]) [address] [place] [address] 88099 CANNABINOID (THC) CONFIRMATI ON, URINEon 12-15-2022 Cannabinoid Positive Abnormal [facility] Comment on above: Performed By: #### C BC #### [facility] [address] [address] [address] Isi Summers THC GC/MS Conf >750 Normal Cutoff=10 [facility] Comment on above: Performed By: #### C BC #### [facility] [address] [address] [address] Isi Forbes CBC AUTO DIFFon 05-26-2023 BASO # 0.0 103/ul Normal 0.0-0.1 [facility] Comment on above: Performed By: #### G TT3P #### [facility] [address] [place] [address] Dr. Isi Forbes Basophils/100 WBC (Bld) 0.3 % Normal 0.2-2.0 [facility] Comment on above: Performed By: #### G TT3P #### [facility] [address] [place] [address] Dr. Isi Forbes EO # 0.1 103/ul Normal 0.0-0.7 [facility] Comment on above: Performed By: #### G TT3P #### [facility] [address] [place] [address] Dr. Isi Forbes Eosinophils/100 WBC (Bld) 0.5 % Critically low 0.9-7.0 [facility] Comment on above: Performed By: #### G TT3P #### [facility] [address] [place] [address] Dr. Isi Forbes Erythrocyte distribution width (RBC) [Ratio] 13.8 % Normal 11.0-15.0 [facility] Comment on above: Performed By: #### G TT3P #### [facility] [address] [place] [address] Dr. Isi Forbes Hematocrit (Bld) [Volume fraction] 24.1 % Critically low 36.0-48.0 [facility] Comment on above: Performed By: #### G TT3P #### [facility] [address] [place] [address] Dr. Isi Forbes Hemoglobin (Bld) [Mass/Vol] 7.7 g/dL Critically low 12.0-16.0 [facility] Comment on above: Performed By: #### G TT3P #### [facility] [address] [place] [address] Dr. Isi Forbes IG # 0.11 10e3/ul Critically high 0.00-0.03 [facility] Comment on above: Performed By: #### G TT3P #### [facility] [address] [place] [address] Dr. Isi Forbes IG % 0.9 % Critically high 0.0-0.[address] [facility] Comment on above: Performed By: #### G TT3P #### [facility] [address] [place] [address] Dr. Isi Forbes LYMPH # 2.0 103/ul Normal 1.2-3.8 [facility] Comment on above: Performed By: #### G TT3P #### [facility] [address] [place] [address] Dr. Isi Forbes Lymphocytes/100 WBC (Bld) 16.9 % Critically low 20.5-60.0 [facility] Comment on above: Performed By: #### G TT3P #### [facility] [address] [place] [address] Dr. Isi Forbes MANUAL DIFF REQ NO Normal [facility] Comment on above: Performed By: #### G TT3P #### [facility] [address] [place] [address] Dr. Isi Forbes MCH (RBC) [Entitic mass] 27.4 pg Normal 26.7-34.0 [facility] Comment on above: Performed By: #### G TT3P #### [facility] [address] [place] [address] Dr. Isi Forbes MCHC (RBC) [Mass/Vol] 32.0 g/dL Normal 29.9-35.2 [facility] Comment on above: Performed By: #### G TT3P #### [facility] [address] [place] [address] Dr. Isi Forbes MCV (RBC) [Entitic vol] 85.8 fL Normal 81.0-99.0 [facility] Comment on above: Performed By: #### G TT3P #### [facility] [address] [place] [address] Dr. Isi Forbes MONO # 1.5 103/ul Critically high 0.3-0.[address] [facility] Comment on above: Performed By: #### G TT3P #### [facility] [address] [place] [address] Dr. Isi Forbes Monocytes/100 WBC (Bld) 12.2 % Critically high 1.7-12.0 [facility] Comment on above: Performed By: #### G TT3P #### [facility] [address] [place] [address] Dr. Isi Forbes NEUT # 8.3 103/ul Critically high 1.4-6.[address] [facility] Comment on above: Performed By: #### G TT3P #### [facility] [address] [place] [address] Dr. Isi Forbes Neutrophils/100 WBC (Bld) 69.2 % Normal 43.0-75.0 [facility] Comment on above: Performed By: #### G TT3P #### [facility] [address] [place] [address] Dr. Isi Forbes Platelet mean volume (Bld) [Entitic vol] 9.6 fL Normal 9.5-13.5 [facility] Comment on above: Performed By: #### G TT3P #### [facility] [address] [place] [address] Dr. Isi Forbes PLT 205 103/ul Normal 150-450 [facility] Comment on above: Performed By: #### G TT3P #### [facility] [address] [place] [address] Dr. Isi Forbes RBC 2.81 106/ul Critically low 4.20-5.40 [facility] Comment on above: Performed By: #### G TT3P #### [facility] [address] [place] [address] Dr. Isi Forbes WBC 12.0 103/ul Critically high 4.0-11.0 [facility] Comment on above: Performed By: #### G TT3P #### [facility] [address] [place] [address] Dr. Isi Forbes CBC AUTO DIFFon 12-09-2022 BASO # 0.1 103/ul Normal 0.0-0.1 [facility] Comment on above: Performed By: #### G TT3P #### [facility] [address] [place] [address] Dr. Isi Forbes Basophils/100 WBC (Bld) 0.5 % Normal 0.2-2.0 [facility] Comment on above: Performed By: #### G TT3P #### [facility] [address] [place] [address] Dr. Isi Forbes EO # 0.1 103/ul Normal 0.0-0.7 [facility] Comment on above: Performed By: #### G TT3P #### [facility] [address] [place] [address] Dr. Isi Forbes Eosinophils/100 WBC (Bld) 0.4 % Critically low 0.9-7.0 [facility] Comment on above: Performed By: #### G TT3P #### [facility] [address] [place] [address] Dr. Isi Forbes Erythrocyte distribution width (RBC) [Ratio] 13.7 % Normal 11.0-15.0 [facility] Comment on above: Performed By: #### G TT3P #### [facility] [address] [place] [address] Dr. Isi Forbes Hematocrit (Bld) [Volume fraction] 31.9 % Critically low 36.0-48.0 [facility] Comment on above: Performed By: #### G TT3P #### [facility] [address] [place] [address] Dr. Isi Forbes Hemoglobin (Bld) [Mass/Vol] 10.5 g/dL Critically low 12.0-16.0 [facility] Comment on above: Performed By: #### G TT3P #### [facility] [address] [place] [address] Dr. Isi Forbes IG # 0.13 10e3/ul Critically high 0.00-0.03 [facility] Comment on above: Performed By: #### G TT3P #### [facility] [address] [place] [address] Dr. Isi Forbes IG % 1.2 % Critically high 0.0-0.5 [facility] Comment on above: Performed By: #### G TT3P #### [facility] [address] [address] [address] Isi Forbes LYMPH # 2.0 103/ul Normal 1.2-3.8 [facility] Comment on above: Performed By: #### G TT3P #### [facility] [address] [address] [address] Isi Forbes Lymphocytes/100 WBC (Bld) 18.0 % Critically low 20.5-60.0 [facility] Comment on above: Performed By: #### G TT3P #### [facility] [address] [address] [address] Isi Forbes MANUAL DIFF REQ NO Normal [facility] Comment on above: Performed By: #### G TT3P #### [facility] [address] [place] [address] Dr. Isi Forbes MCH (RBC) [Entitic mass] 27.6 pg Normal 26.7-34.0 [facility] Comment on above: Performed By: #### G TT3P #### [facility] [address] [place] [address] Dr. Isi Forbes MCHC (RBC) [Mass/Vol] 32.9 g/dL Normal 29.9-35.2 [facility] Comment on above: Performed By: #### G TT3P #### [facility] [address] [place] [address] Dr. Isi Forbes MCV (RBC) [Entitic vol] 83.9 fL Normal 81.0-99.0 [facility] Comment on above: Performed By: #### G TT3P #### [facility] [address] [place] [address] Dr. Isi Forbes MONO # 1.0 103/ul Critically high 0.3-0.8 [facility] Comment on above: Performed By: #### G TT3P #### [facility] [address] [place] [address] Dr. Isi Forbes Monocytes/100 WBC (Bld) 8.9 % Normal 1.7-12.0 [facility] Comment on above: Performed By: #### G TT3P #### [facility] [address] [address] [address] Isi Forbes NEUT # 7.9 103/ul Critically high 1.4-6.5 [facility] Comment on above: Performed By: #### G TT3P #### [facility] [address] [address] [address] Isi Forbes Neutrophils/100 WBC (Bld) 71.0 % Normal 43.0-75.0 [facility] Comment on above: Performed By: #### G TT3P #### [facility] [address] [address] [address] Isi Forbes Platelet mean volume (Bld) [Entitic vol] 10.0 fL Normal 9.5-13.5 [facility] Comment on above: Performed By: #### G TT3P #### [facility] [address] [address] [address] Isi Forbes PLT 264 103/ul Normal 150-450 [facility] Comment on above: Performed By: #### G TT3P #### [facility] [address] [address] [address] Isi Forbes RBC 3.80 106/ul Critically low 4.20-5.40 [facility] Comment on above: Performed By: #### G TT3P #### [facility] [address] [address] [address] Isi Forbes WBC 11.1 103/ul Critically high 4.0-11.0 [facility] Comment on above: Performed By: #### G TT3P #### [facility] [address] [address] [address] Isi Forbes DRUG SCREEN RAPID (URINE)on 12-09-2022 AMP Negative Normal NEGATIVE [facility] Comment on above: Performed By: #### G TT3P #### [facility] [address] [address] [address] Isi Forbes BAR Negative Normal NEGATIVE [facility] Comment on above: Performed By: #### G TT3P #### [facility] [address] [place] [address] Dr. Isi Forbes BUP Negative Normal NEGATIVE [facility] Comment on above: Performed By: #### G TT3P #### [facility] [address] [address] [address] Isi Forbes BZO Negative Normal NEGATIVE [facility] Comment on above: Performed By: #### G TT3P #### [facility] [address] [place] [address] Dr. Isi Forbes BEATA Negative Normal NEGATIVE [facility] Comment on above: Performed By: #### G TT3P #### [facility] [address] [place] [address] Dr. Isi Forbes CUT-OFFS SEE BELOW Normal [facility] Comment on above: Result Comment: AMP (Amphetamine): [...] By: #### G TT3P #### [facility] [address] [place] [address] Dr. Isi Forbes DRUG CUT HEADER DRUG CLASS TEST SYSTEM CUT-OFF CONCENTRATIONS ARE FOLLOWS: Normal [facility] Comment on above: Performed By: #### G TT3P #### [facility] [address] [place] [address] Dr. Isi Forbes mAMP Negative Normal NEGATIVE [facility] Comment on above: Performed By: #### G TT3P #### [facility] [address] [place] [address] Dr. Isi Forbes MTD Negative Normal NEGATIVE [facility] Comment on above: Performed By: #### G TT3P #### [facility] [address] [place] [address] Dr. Isi Forbes OPI Negative Normal NEGATIVE [facility] Comment on above: Performed By: #### G TT3P #### [facility] [address] [place] [address] Dr. Isi Forbes OXY Negative Normal NEGATIVE [facility] Comment on above: Performed By: #### G TT3P #### [facility] [address] [place] [address] Dr. Isi Forbes PCP Negative Normal NEGATIVE [facility] Comment on above: Performed By: #### G TT3P #### [facility] [address] [place] [address] Dr. Isi Forbes PPX Negative Normal NEGATIVE [facility] Comment on above: Performed By: #### G TT3P #### [facility] [address] [place] [address] Dr. Isi Forbes TCA Negative Normal NEGATIVE [facility] Comment on above: Performed By: #### G TT3P #### [facility] [address] [place] [address] Dr. Isi Forbes THC Positive Abnormal NEGATIVE [facility] Comment on above: Performed By: #### G TT3P #### [facility] [address] [place] [address] Dr. Isi Forbes TYPE AND SCREENon 12-09-2022 TYPE AND SCREEN Negative Normal [facility] Comment on above: Performed By: #### R PRQ #### [facility] [address] [place] [address] Dr. Isi Forbes UA (CLEAN/CATCH) [employer]/MICRO I F IND.on 12-09-2022 Bilirubin Ql (U) Negative Normal NEGATIVE [facility] Comment on above: Performed By: #### C BC #### [facility] [address] [place] [address] Dr. Isi Forbes Clarity (U) CLEAR Normal CLEAR [facility] Comment on above: Performed By: #### C BC #### [facility] [address] [place] [address] Dr. Isi Forbes Color (U) YELLOW Normal YELLOW [facility] Comment on above: Performed By: #### C BC #### [facility] [address] [place] [address] Dr. Isi Forbes Glucose Ql (U) Negative Normal NEGATIVE [facility] Comment on above: Performed By: #### C BC #### [facility] [address] [place] [address] Dr. Isi Forbes Hemoglobin Ql (U) Negative Normal NEGATIVE [facility] Comment on above: Performed By: #### C BC #### [facility] [address] [place] [address] Dr. Isi Forbes Ketones Ql (U) TRACE Abnormal NEGATIVE [facility] Comment on above: Performed By: #### C BC #### [facility] [address] [place] [address] Dr. Isi Forbes LEUKOCYTES Negative Normal NEGATIVE [facility] Comment on above: Performed By: #### C BC #### [facility] [address] [place] [address] Dr. Isi Forbes Nitrite Ql (U) Negative Normal NEGATIVE [facility] Comment on above: Performed By: #### C BC #### [facility] [address] [place] [address] Dr. Isi Forbes pH (U) 6.5 [pH] Normal 5-9 [facility] Comment on above: Performed By: #### C BC #### [facility] [address] [place] [address] Dr. Isi Forbes SPEC GRAVITY 1.025 Normal 1.005-<=1.025 [facility] [facility] [place] Comment on above: Performed By: #### C BC #### [facility] [address] [place] [address] Dr. Isi Forbes UA PROTEIN TRACE Normal NEGATIVE/ TRACE [facility] Comment on above: Performed By: #### C BC #### [facility] [address] [place] [address] Dr. Isi Forbes UR MICRO IND NOT INDICATED Normal The [facility] [place] Comment on above: Performed By: #### C BC #### [facility] [address] [place] [address] Dr. Isi Forbes Urobilinogen Qn (U) 0.2 {Barb'U}/dL Normal 0.2 - 1. 0 [facility] Comment on above: Performed By: #### C BC #### [facility] [address] [place] [address] Dr. Isi Forbes GROUP B STREP CULTUREon 11-15 S. agalactiae Ag Ql (Unsp spec) Culture Observations: NEGATIVE FOR GROUP B STREPTOCOCCUS. Normal [facility] Comment on above: Performed By: #### R PRQ #### [facility] [address] [place] [address] Dr. Isi Forbes US PREG BIOPHY W [...] Date: 2022-10-31 22:08 Normal [facility] US PREG GROWTHon 11-01-2022 US PREG [...] Date: 2022-10-31 22:07 Normal [facility] CBC AUTO DIFFon 10-28-2022 BASO # 0.0 103/ul Normal 0.0-0.1 [facility] Comment on above: Performed By: #### G TT3P #### [facility] [address] [address] [address] Isi Forbes Basophils/100 WBC (Bld) 0.1 % Critically low 0.2-2.0 [facility] Comment on above: Performed By: #### G TT3P #### [facility] [address] [address] [address] Isi Forbes EO # 0.0 103/ul Normal 0.0-0.7 [facility] Comment on above: Performed By: #### G TT3P #### [facility] [address] [place] [address] Dr. Isi Forbes Eosinophils/100 WBC (Bld) 0.1 % Critically low 0.9-7.0 [facility] Comment on above: Performed By: #### G TT3P #### [facility] [address] [place] [address] Dr. Isi Forbes Erythrocyte distribution width (RBC) [Ratio] 12.7 % Normal 11.0-15.0 [facility] Comment on above: Performed By: #### G TT3P #### [facility] [address] [place] [address] Dr. Isi Forbes Hematocrit (Bld) [Volume fraction] 29.1 % Critically low 36.0-48.0 [facility] Comment on above: Performed By: #### G TT3P #### [facility] [address] [address] [address] Isi Forbes Hemoglobin (Bld) [Mass/Vol] 9.4 g/dL Critically low 12.0-16.0 [facility] Comment on above: Performed By: #### G TT3P #### [facility] [address] [place] [address] Dr. Isi Forbes IG # 0.20 10e3/ul Critically high 0.00-0.03 [facility] Comment on above: Performed By: #### G TT3P #### [facility] [address] [place] [address] Dr. Isi Forbes IG % 1.4 % Critically high 0.0-0.[address] [facility] Comment on above: Performed By: #### G TT3P #### [facility] [address] [place] [address] Dr. Isi Forbes LYMPH # 1.9 103/ul Normal 1.2-3.8 [facility] Comment on above: Performed By: #### G TT3P #### [facility] [address] [place] [address] Dr. Isi Forbes Lymphocytes/100 WBC (Bld) 13.5 % Critically low 20.5-60.0 [facility] Comment on above: Performed By: #### G TT3P #### [facility] [address] [place] [address] Dr. Isi Forbes MANUAL DIFF REQ NO Normal [facility] Comment on above: Performed By: #### G TT3P #### [facility] [address] [place] [address] Dr. Isi Forbes MCH (RBC) [Entitic mass] 28.2 pg Normal 26.7-34.0 [facility] Comment on above: Performed By: #### G TT3P #### [facility] [address] [place] [address] Dr. Isi Forbes MCHC (RBC) [Mass/Vol] 32.3 g/dL Normal 29.9-35.2 [facility] Comment on above: Performed By: #### G TT3P #### [facility] [address] [place] [address] Dr. Isi Forbes MCV (RBC) [Entitic vol] 87.4 fL Normal 81.0-99.0 [facility] Comment on above: Performed By: #### G TT3P #### [facility] [address] [place] [address] Dr. Isi Forbes MONO # 0.8 103/ul Normal 0.3-0.8 [facility] Comment on above: Performed By: #### G TT3P #### [facility] [address] [place] [address] Dr. Isi Forbes Monocytes/100 WBC (Bld) 5.9 % Normal 1.7-12.0 [facility] Comment on above: Performed By: #### G TT3P #### [facility] [address] [place] [address] Dr. Isi Forbes NEUT # 10.9 103/ul Critically high 1.4-6.5 [facility] Comment on above: Performed By: #### G TT3P #### [facility] [address] [place] [address] Dr. Isi Forbes Neutrophils/100 WBC (Bld) 79.0 % Critically high 43.0-75.0 [facility] Comment on above: Performed By: #### G TT3P #### [facility] [address] [place] [address] Dr. Isi Forbes Platelet mean volume (Bld) [Entitic vol] 9.3 fL Critically low 9.5-13.5 [facility] Comment on above: Performed By: #### G TT3P #### [facility] [address] [place] [address] Dr. Isi Forbes PLT 265 103/ul Normal 150-450 [facility] Comment on above: Performed By: #### G TT3P #### [facility] [address] [place] [address] Dr. Iis Forbes RBC 3.33 106/ul Critically low 4.20-5.[address] [facility] Comment on above: Performed By: #### G TT3P #### [facility] [address] [place] [address] Dr. Isi Forbes WBC 13.8 103/ul Critically high 4.0-11.0 [facility] Comment on above: Performed By: #### G TT3P #### [facility] [address] [place] [address] Dr. Isi Forbes CBC AUTO DIFFon 10-27-2022 BASO # 0.0 103/ul Normal 0.0-0.1 [facility] Comment on above: Performed By: #### C BC #### [facility] [address] [place] [address] Dr. Isi Forbes Basophils/100 WBC (Bld) 0.2 % Normal 0.2-2.0 [facility] Comment on above: Performed By: #### C BC #### [facility] [address] [place] [address] Dr. Isi Forbes EO # 0.0 103/ul Normal 0.0-0.7 [facility] Comment on above: Performed By: #### C BC #### [facility] [address] [place] [address] Dr. Isi Forbes Eosinophils/100 WBC (Bld) 0.1 % Critically low 0.9-7.0 [facility] Comment on above: Performed By: #### C BC #### [facility] [address] [place] [address] Dr. Isi Forbes Erythrocyte distribution width (RBC) [Ratio] 12.7 % Normal 11.0-15.0 [facility] Comment on above: Performed By: #### C BC #### [facility] [address] [place] [address] Dr. Isi Forbes Hematocrit (Bld) [Volume fraction] 30.4 % Critically low 36.0-48.0 [facility] Comment on above: Performed By: #### C BC #### [facility] [address] [place] [address] Dr. Isi Forbes Hemoglobin (Bld) [Mass/Vol] 10.4 g/dL Critically low 12.0-16.0 [facility] Comment on above: Performed By: #### C BC #### [facility] [address] [place] [address] Dr. Isi Forbes IG # 0.19 10e3/ul Critically high 0.00-0.03 [facility] Comment on above: Performed By: #### C BC #### [facility] [address] [place] [address] Dr. Isi Forbes IG % 1.2 % Critically high 0.0-0.[address] [facility] Comment on above: Performed By: #### C BC #### [facility] [address] [place] [address] Dr. Isi Forbes LYMPH # 1.1 103/ul Critically low 1.2-3.8 [facility] Comment on above: Performed By: #### C BC #### [facility] [address] [place] [address] Dr. Isi Forbes Lymphocytes/100 WBC (Bld) 6.7 % Critically low 20.5-60.0 [facility] Comment on above: Performed By: #### C BC #### [facility] [address] [place] [address] Dr. Isi Forbes MANUAL DIFF REQ NO Normal [facility] Comment on above: Performed By: #### C BC #### [facility] [address] [place] [address] Dr. Isi Forbes MCH (RBC) [Entitic mass] 29.5 pg Normal 26.7-34.0 [facility] Comment on above: Performed By: #### C BC #### [facility] [address] [place] [address] Dr. Isi Forbes MCHC (RBC) [Mass/Vol] 34.2 g/dL Normal 29.9-35.2 [facility] Comment on above: Performed By: #### C BC #### [facility] [address] [place] [address] Dr. Isi Forbes MCV (RBC) [Entitic vol] 86.1 fL Normal 81.0-99.0 [facility] Comment on above: Performed By: #### C BC #### [facility] [address] [place] [address] Dr. Isi Forbes MONO # 0.3 103/ul Normal 0.3-0.8 [facility] Comment on above: Performed By: #### C BC #### [facility] [address] [place] [address] Dr. Isi Forbes Monocytes/100 WBC (Bld) 1.7 % Normal 1.7-12.0 [facility] Comment on above: Performed By: #### C BC #### [facility] [address] [address] [address] Isi Forbes NEUT # 14.1 103/ul Critically high 1.4-6.5 [facility] Comment on above: Performed By: #### C BC #### [facility] [address] [address] [address] Isi Forbes Neutrophils/100 WBC (Bld) 90.1 % Critically high 43.0-75.0 [facility] Comment on above: Performed By: #### C BC #### [facility] [address] [place] [address] Dr. Isi Forbes Platelet mean volume (Bld) [Entitic vol] 8.9 fL Critically low 9.5-13.5 [facility] Comment on above: Performed By: #### C BC #### [facility] [address] [place] [address] Dr. Isi Forbes PLT 276 103/ul Normal 150-450 [facility] Comment on above: Performed By: #### C BC #### [facility] [address] [place] [address] Dr. Isi Forbes RBC 3.53 106/ul Critically low 4.20-5.[address] [facility] Comment on above: Performed By: #### C BC #### [facility] [address] [place] [address] Dr. Isi Forbes WBC 15.6 103/ul Critically high 4.0-11.0 [facility] Comment on above: Performed By: #### C BC #### [facility] [address] [place] [address] Dr. Isi Forbes UA (CLEAN/CATCH) [employer]/MICRO I F IND.on 10-27-2022 Bilirubin Ql (U) Negative Normal NEGATIVE [facility] Comment on above: Performed By: #### C BC #### [facility] [address] [place] [address] Dr. Isi Forbes Clarity (U) CLEAR Normal CLEAR [facility] Comment on above: Performed By: #### C BC #### [facility] [address] [place] [address] Dr. Isi Forbes Color (U) LT. YELLOW Normal YELLOW [facility] Comment on above: Performed By: #### C BC #### [facility] [address] [place] [address] Dr. Isi Forbes Glucose Ql (U) Negative Normal NEGATIVE [facility] Comment on above: Performed By: #### C BC #### [facility] [address] [place] [address] Dr. Isi Forbes Hemoglobin Ql (U) Negative Normal NEGATIVE [facility] Comment on above: Performed By: #### C BC #### [facility] [address] [place] [address] Dr. Isi Forbes Ketones Ql (U) Negative Normal NEGATIVE [facility] Comment on above: Performed By: #### C BC #### [facility] [address] [place] [address] Dr. Isi Forbes LEUKOCYTES Negative Normal NEGATIVE [facility] Comment on above: Performed By: #### C BC #### [facility] [address] [place] [address] Dr. Isi Forbes Nitrite Ql (U) Negative Normal NEGATIVE [facility] Comment on above: Performed By: #### C BC #### [facility] [address] [place] [address] Dr. Isi Forbes pH (U) 6.0 [pH] Normal 5-9 [facility] Comment on above: Performed By: #### C BC #### [facility] [address] [place] [address] Dr. Isi Forbes SPEC GRAVITY 1.010 Normal 1.005-<=1.025 [facility] [place] Comment on above: Performed By: #### C BC #### [facility] [address] [place] [address] Dr. Isi Forbes UA PROTEIN Negative Normal NEGATIVE/ TRACE [facility] Comment on above: Performed By: #### C BC #### [facility] [address] [place] [address] Dr. Isi Forbes UR MICRO IND NOT INDICATED Normal [facility] [place] Comment on above: Performed By: #### C BC #### [facility] [address] [address] [address] Isi Forbes Urobilinogen Qn (U) 0.2 {Barb'U}/dL Normal 0.2 - 1. 0 [facility] Comment on above: Performed By: #### C BC #### [facility] [address] [address] [address] Isi Forbes US PREG CERVICAL LENGTHon [...] Date: 2022-10-27 16:05 Normal [facility] GTT 3 HR PREGon 10-26-2022 Glucose [Mass/Vol] 99 mg/dL Normal 74-106 [facility] Comment on above: Performed By: #### G TT3P #### [facility] [address] [address] [address] Isi Forbes Glucose [Mass/Vol] 172 mg/dL Normal [facility] Comment on above: Performed By: #### G TT3P #### [facility] [address] [address] [address] Isi Forbes Glucose [Mass/Vol] 147 mg/dL Normal [facility] Comment on above: Performed By: #### G TT3P #### [facility] [address] [address] [address] Isi Forbes Glucose [Mass/Vol] 125 mg/dL Normal [facility] Comment on above: Performed By: #### G TT3P #### [facility] [address] [address] [address] Isi Forbes GLYCOHEMOGLOBIN A1Con 2022 ADA RECOMMENDATION SEE BELOW Normal [facility] Comment on above: Result Comment: ADA RECOMMENDED LIMIT 4.0 - 6.0 ADA THERAPEUTIC TARGET < 7.0 ACTION SUGGESTED > 7.0 Performed By: #### A 1C #### [facility] [address] [place] [address] Dr. Isi Forbes Glucose [Mass/Vol] 114 mg/dL Normal [facility] Comment on above: Performed By: #### A 1C #### [facility] [address] [place] [address] Dr. Isi Forbes HbA1c (Bld) [Mass fraction] 5.6 % Normal 4.5-6.2 [facility] Comment on above: Performed By: #### A 1C #### [facility] [address] [place] [address] Dr. Isi Forbes UA RANDOMon 10-25-2022 Bilirubin Ql (U) Negative Normal NEGATIVE [facility] Comment on above: Performed By: #### R PRQ #### [facility] [address] [place] [address] Dr. Isi Forbes Clarity (U) CLEAR Normal CLEAR [facility] Comment on above: Performed By: #### R PRQ #### [facility] [address] [place] [address] Dr. Isi Forbes Color (U) LT. YELLOW Normal YELLOW [facility] Comment on above: Performed By: #### R PRQ #### [facility] [address] [place] [address] Dr. Isi Forbes Glucose Ql (U) Negative Normal NEGATIVE [facility] Comment on above: Performed By: #### R PRQ #### [facility] [address] [place] [address] Dr. Isi Forbes Hemoglobin Ql (U) Negative Normal NEGATIVE [facility] Comment on above: Performed By: #### R PRQ #### [facility] [address] [place] [address] Dr. Isi Forbes Ketones Ql (U) Negative Normal NEGATIVE [facility] Comment on above: Performed By: #### R PRQ #### [facility] [address] [place] [address] Dr. Isi Forebs LEUKOCYTES Negative Normal NEGATIVE [facility] Comment on above: Performed By: #### R PRQ #### [facility] [address] [place] [address] Dr. Isi Forbes Nitrite Ql (U) Negative Normal NEGATIVE [facility] Comment on above: Performed By: #### R PRQ #### [facility] [address] [place] [address] Dr. Isi Forbes pH (U) 7.5 [pH] Normal 5-9 [facility] Comment on above: Performed By: #### R PRQ #### [facility] [address] [place] [address] Dr. Isi Forbes SPEC GRAVITY 1.020 Normal 1.005-<=1.[address] [facility] Comment on above: Performed By: #### R PRQ #### [facility] [address] [place] [address] Dr. Isi Forbes UA PROTEIN Negative Normal NEGATIVE/ TRACE [facility] Comment on above: Performed By: #### R PRQ #### [facility] [address] [place] [address] Dr. Isi Forbes Urobilinogen Qn (U) 0.2 {Barb'U}/dL Normal 0.2 - 1. 0 [facility] Comment on above: Performed By: #### R PRQ #### [facility] [address] [place] [address] Dr. Isi Forbes GLUCOSE - 1HRon 09-27-2022 Glucose [Mass/Vol] 166 mg/dL Critically high 74-106 [facility] Comment on above: Performed By: #### C BC #### [facility] [address] [place] [address] Dr. Isi Forbes HEMOGRAM AND PLATELon 2022 Hematocrit (Bld) [Volume fraction] 30.9 % Critically low 36.0-48.0 [facility] Comment on above: Performed By: #### C BC #### [facility] [address] [place] [address] Dr. Isi Forbes Hemoglobin (Bld) [Mass/Vol] 10.4 g/dL Critically low 12.0-16.0 [facility] Comment on above: Performed By: #### C BC #### [facility] [address] [place] [address] Dr. Isi Forbes MCH (RBC) [Entitic mass] 29.9 pg Normal 26.7-34.0 [facility] Comment on above: Performed By: #### C BC #### [facility] [address] [place] [address] Dr. Isi Forbes MCHC (RBC) [Mass/Vol] 33.7 g/dL Normal 29.9-35.2 [facility] Comment on above: Performed By: #### C BC #### [facility] [address] [place] [address] Dr. Isi Forbes MCV (RBC) [Entitic vol] 88.8 fL Normal 81.0-99.0 [facility] Comment on above: Performed By: #### C BC #### [facility] [address] [place] [address] Dr. Isi Forbes PLT 300 103/ul Normal 150-450 [facility] Comment on above: Performed By: #### C BC #### [facility] [address] [place] [address] Dr. Isi Forbes RBC 3.48 106/ul Critically low 4.20-5.[address] [facility] Comment on above: Performed By: #### C BC #### [facility] [address] [place] [address] Dr. Isi Forbes WBC 10.1 103/ul Normal 4.0-11.0 [facility] Comment on above: Performed By: #### C BC #### [facility] [address] [place] [address] Dr. Isi Forbes US PREG ANATOMY SINGLEon [...] by: ASHLEE STOVER Date: 2022-08-04 16:06 Normal [facility] PAP ACOG PANEL 2: 30 to 65on 07-25-2022 . . Normal [facility] Comment on above: Result Comment: Perf ormed at: [facility] Performed By: #### G TT3P #### [facility] [address] [place] [address] Dr. Isi Forbes Age Gdln ACOG Testing 30-[address] [facility] Comment on above: Performed By: #### G TT3P #### [facility] [address] [address] [address] Isi Forbes DIAGNOSIS: Comment [facility] Comment on above: Result Comment: NEGA TIVE FOR INTRAEPITHELIAL LESION OR MALIGNANCY. Performed at: [facility] Performed By: #### G TT3P #### [facility] [address] [place] [address] Dr. Isi Forbes HPV Aptima Negative Normal Negative [facility] Comment on above: Result Comment: This nucleic acid amplification test detects fourteen high-risk HPV types (16,18,31,33,35,39,45,51,52,56,58,59,66,68) without differentiation. Performed at: =G Performed By: #### G TT3P #### [facility] [address] [address] [address] Isi Forbes HPV Genotype Reflex Comment Normal [facility] Comment on above: Result Comment: Crit eria not met, HPV Genotype not performed. Performed at: [facility] Performed By: #### G TT3P #### [facility] [address] [place] [address] Dr. Isi Forbes Methodology: Comment Normal [facility] Comment on above: Result Comment: This liquid based ThinPrep(R) pap test was screened with the use of an image guided system. Performed at: [facility] Performed By: #### G TT3P #### [facility] [address] [place] [address] Dr. Isi Forbes Note: Comment Normal [facility] Comment on above: Result Comment: The Pap [...] By: #### G TT3P #### [facility] [address] [address] [address] Isi Forbes Performed by: Comment Normal [facility] Comment on above: Result Comment: Mikki Good, Ob Gyn Physician Assistant (ASCP) Performed at: [facility] Performed By: #### G TT3P #### [facility] [address] [place] [address] Dr. Isi Forbes Specimen adequacy: Comment Normal [facility] Comment on above: Result Comment: Sati sfactory for evaluation. Endocervical and/or squamous metaplastic cells (endocervical component) are present. Performed at: [facility] Performed By: #### G TT3P #### [facility] [address] [place] [address] Dr. Isi Forbes CHLAMYDIA/GONOCOCCUS SARA (SW AB/URINE/PAPon 07-23-2022 Chlamydia trachomatis, SARA Negative Normal Negative [facility] Comment on above: Performed By: #### C BC #### [facility] [address] [place] [address] Dr. Isi Forbes Neisseria gonorrhoeae, SARA Negative Normal Negative [facility] Comment on above: Performed By: #### C BC #### [facility] [address] [place] [address] Dr. Isi Forbes CBC AUTO DIFFon 06-16-2022 BASO # 0.1 103/ul Normal 0.0-0.1 [facility] Comment on above: Performed By: #### G TT3P #### [facility] [address] [place] [address] Dr. Isi Forbes Basophils/100 WBC (Bld) 0.5 % Normal 0.2-2.0 [facility] Comment on above: Performed By: #### G TT3P #### [facility] [address] [place] [address] Dr. Isi Forbes EO # 0.1 103/ul Normal 0.0-0.7 [facility] Comment on above: Performed By: #### G TT3P #### [facility] [address] [place] [address] Dr. Isi Forbes Eosinophils/100 WBC (Bld) 1.2 % Normal 0.9-7.0 [facility] Comment on above: Performed By: #### G TT3P #### [facility] [address] [place] [address] Dr. Isi Forbes Erythrocyte distribution width (RBC) [Ratio] 12.7 % Normal 11.0-15.0 [facility] Comment on above: Performed By: #### G TT3P #### [facility] [address] [place] [address] Dr. Isi Forbes Hematocrit (Bld) [Volume fraction] 33.0 % Critically low 36.0-48.0 [facility] Comment on above: Performed By: #### G TT3P #### [facility] [address] [place] [address] Dr. Isi Forbes Hemoglobin (Bld) [Mass/Vol] 11.3 g/dL Critically low 12.0-16.0 [facility] Comment on above: Performed By: #### G TT3P #### [facility] [address] [place] [address] Dr. Isi Forbes IG # 0.06 10e3/ul Critically high 0.00-0.03 [facility] Comment on above: Performed By: #### G TT3P #### [facility] [address] [place] [address] Dr. Isi Forbes IG % 0.6 % Critically high 0.0-0.[address] [facility] Comment on above: Performed By: #### G TT3P #### [facility] [address] [place] [address] Dr. Isi Forbes LYMPH # 2.0 103/ul Normal 1.2-3.8 [facility] Comment on above: Performed By: #### G TT3P #### [facility] [address] [place] [address] Dr. Isi Forbes Lymphocytes/100 WBC (Bld) 20.0 % Critically low 20.5-60.0 [facility] Comment on above: Performed By: #### G TT3P #### [facility] [address] [place] [address] Dr. Isi Forbes MANUAL DIFF REQ NO Normal [facility] Comment on above: Performed By: #### G TT3P #### [facility] [address] [place] [address] Dr. Isi Forbes MCH (RBC) [Entitic mass] 31.1 pg Normal 26.7-34.0 [facility] Comment on above: Performed By: #### G TT3P #### [facility] [address] [address] [address] Isi Forbes MCHC (RBC) [Mass/Vol] 34.2 g/dL Normal 29.9-35.2 [facility] Comment on above: Performed By: #### G TT3P #### [facility] [address] [place] [address] Dr. Isi Forbes MCV (RBC) [Entitic vol] 90.9 fL Normal 81.0-99.0 [facility] Comment on above: Performed By: #### G TT3P #### [facility] [address] [place] [address] Dr. Isi Forbes MONO # 0.6 103/ul Normal 0.3-0.8 [facility] Comment on above: Performed By: #### G TT3P #### [facility] [address] [place] [address] Dr. Isi Forbes Monocytes/100 WBC (Bld) 6.0 % Normal 1.7-12.0 [facility] Comment on above: Performed By: #### G TT3P #### [facility] [address] [place] [address] Dr. Isi Forbes NEUT # 7.2 103/ul Critically high 1.4-6.[address] [facility] Comment on above: Performed By: #### G TT3P #### [facility] [address] [place] [address] Dr. Isi Forbes Neutrophils/100 WBC (Bld) 71.7 % Normal 43.0-75.0 [facility] Comment on above: Performed By: #### G TT3P #### [facility] [address] [place] [address] Dr. Isi Forbes Platelet mean volume (Bld) [Entitic vol] 9.5 fL Normal 9.5-13.5 [facility] Comment on above: Performed By: #### G TT3P #### [facility] [address] [place] [address] Dr. Isi Forbes PLT 244 103/ul Normal 150-450 [facility] Comment on above: Performed By: #### G TT3P #### [facility] [address] [place] [address] Dr. Isi Forbes RBC 3.63 106/ul Critically low 4.20-5.[address] [facility] Comment on above: Performed By: #### G TT3P #### [facility] [address] [place] [address] Dr. Isi Forbes WBC 10.0 103/ul Normal 4.0-11.0 [facility] Comment on above: Performed By: #### G TT3P #### [facility] [address] [place] [address] Dr. Isi Forbes ER URINE PROFILEon 2 Bilirubin Ql (U) Negative Normal NEGATIVE [facility] Comment on above: Performed By: #### G TT3P #### [facility] [address] [place] [address] Dr. Isi Forbes Clarity (U) CLEAR Normal CLEAR [facility] Comment on above: Performed By: #### G TT3P #### [facility] [address] [place] [address] Dr. Isi Forbes Color (U) LT. YELLOW Normal YELLOW [facility] Comment on above: Performed By: #### G TT3P #### [facility] [address] [place] [address] Dr. Isi GOOD A micrscopic examination will be performed if indicated. Normal [facility] Comment on above: Performed By: #### G TT3P #### [facility] [address] [place] [address] Dr. Isi Forbes Glucose Ql (U) Negative Normal NEGATIVE [facility] Comment on above: Performed By: #### G TT3P #### [facility] [address] [place] [address] Dr. Isi Forbes Hemoglobin Ql (U) Negative Normal NEGATIVE [facility] Comment on above: Performed By: #### G TT3P #### [facility] [address] [place] [address] Dr. Isi Forbes Ketones Ql (U) Negative Normal NEGATIVE [facility] Comment on above: Performed By: #### G TT3P #### [facility] [address] [place] [address] Dr. Isi Forbes LEUKOCYTES TRACE Abnormal NEGATIVE [facility] Comment on above: Performed By: #### G TT3P #### [facility] [address] [place] [address] Dr. Isi Forbes Nitrite Ql (U) Negative Normal NEGATIVE [facility] Comment on above: Performed By: #### G TT3P #### [facility] [address] [place] [address] Dr. Isi Forbes pH (U) 7.0 [pH] Normal 5-9 [facility] Comment on above: Performed By: #### G TT3P #### [facility] [address] [place] [address] Dr. Isi Forbes SPEC GRAVITY 1.020 Normal 1.005-<=1.[address] [facility] Comment on above: Performed By: #### G TT3P #### [facility] [address] [place] [address] Dr. Isi Forbes UA PROTEIN Negative Normal NEGATIVE/ TRACE [facility] Comment on above: Performed By: #### G TT3P #### [facility] [address] [place] [address] Dr. Isi Forbes UR MICRO IND INDICATED Normal [facility] Comment on above: Performed By: #### G TT3P #### [facility] [address] [place] [address] Dr. Isi Forbes Urobilinogen Qn (U) 0.2 {Barb'U}/dL Normal 0.2 - 1. 0 [facility] Comment on above: Performed By: #### G TT3P #### [facility] [address] [place] [address] Dr. Isi Forbes PROF CHEM 8 (BAS METB)on Anion gap [Moles/Vol] 11.8 mmol/L Normal [facility] Comment on above: Performed By: #### G TT3P #### [facility] [address] [place] [address] Dr. Isi Forbes Calcium [Mass/Vol] 8.8 mg/dL Normal 8.5-10.1 The [facility] Comment on above: Performed By: #### G TT3P #### [facility] [address] [address] [address] Isi Forbes Chloride [Moles/Vol] 102 mmol/L Normal 98-107 [facility] Comment on above: Performed By: #### G TT3P #### [facility] [address] [address] [address] Isi Forbes CO2 [Moles/Vol] 26.9 mmol/L Normal 21.0-32.0 [facility] Comment on above: Performed By: #### G TT3P #### [facility] [address] [place] [address] Dr. Isi Forbes Creatinine [Mass/Vol] 0.42 mg/dL Critically low 0.55-1.02 [facility] Comment on above: Performed By: #### G TT3P #### [facility] [address] [address] [address] Isi Forbes EGFR-AF DUTCH >60 Normal >=60 [facility] Comment on above: Performed By: #### G TT3P #### [facility] [address] [place] [address] Dr. Isi Forbes EGFR-NON AF DUTCH >60 Normal >=60 [facility] Comment on above: Performed By: #### G TT3P #### [facility] [address] [place] [address] Dr. Isi Forbes Glucose [Mass/Vol] 86 mg/dL Normal 74-106 [facility] Comment on above: Performed By: #### G TT3P #### [facility] [address] [address] [address] Isi Forbes Potassium [Moles/Vol] 3.7 mmol/L Normal 3.5-5.1 [facility] Comment on above: Performed By: #### G TT3P #### [facility] [address] [place] [address] Dr. Isi Forbes Sodium [Moles/Vol] 137 mmol/L Normal 136-145 [facility] Comment on above: Performed By: #### G TT3P #### [facility] [address] [address] [address] Isi Forbes Urea nitrogen [Mass/Vol] 9.0 mg/dL Normal 7.0-18.0 [facility] Comment on above: Performed By: #### G TT3P #### [facility] [address] [place] [address] Dr. Isi Forbes Urea nitrogen/Creatinine [Mass ratio] 21.4 mg/mg Normal [facility] Comment on above: Performed By: #### G TT3P #### [facility] [address] [place] [address] Dr. Isi Forbes URINE MICROSCOPIC ONLYon BACTERIA TRACE Abnormal NONE SEEN [facility] Comment on above: Performed By: #### C BC #### [facility] [address] [place] [address] Dr. Isi Forbes Bacteria identified Cx Nom (U) NOT INDICATED Normal [facility] Comment on above: Performed By: #### C BC #### [facility] [address] [place] [address] Dr. Isi Forbes CAST NONE SEEN Normal NONE SEEN [facility] Comment on above: Performed By: #### C BC #### [facility] [address] [place] [address] Dr. Isi Forbes Crystals LM Nom (Urine sed) NONE SEEN Normal NONE SEEN [facility] Comment on above: Performed By: #### C BC #### [facility] [address] [place] [address] Dr. Isi Forbes Epithelial cells LM Ql (Urine sed) MODERATE Abnormal NONE SEEN /RARE [facility] Comment on above: Performed By: #### C BC #### [facility] [address] [place] [address] Dr. Isi Forbes MUCOUS NONE SEEN Normal NONE SEEN [facility] Comment on above: Performed By: #### C BC #### [facility] [address] [place] [address] Dr. Isi Forbes RBC NONE SEEN Abnormal 0-2 [facility] Comment on above: Performed By: #### C BC #### [facility] [address] [address] [address] Isi Forbes WBC 2-5 Abnormal NONE SEEN [facility] Comment on above: Performed By: #### C BC #### [facility] [address] [address] [address] Isi Forbes HEP B SURFACE ANTIGEN SCREEN on 06-05-2022 HBsAg Screen Negative Normal Negative [facility] Comment on above: Performed By: #### H BSANS #### [facility] [address] [address] [address] Isi Forbse HEPATITIS C VIRUS AB W/ REFL EX QUANTon 06-05-2022 HCV AB 0.1 s/co ratio Normal 0.0-0.9 [facility] Comment on above: Performed By: #### G TT3P #### [facility] [address] [place] [address] Dr. Isi Forbes Interpretation: Comment Normal [facility] Comment on above: Result Comment: Nega tive Not infected with HCV, unless recent infection is suspected or other evidence exists to indicate HCV infection. Performed By: #### G TT3P #### [facility] [address] [place] [address] Dr. Isi Forbes HIV 1 AND 2 WITH REFLEXon HIV Screen 4th Generation wRfx Non-Reactive Normal Non Reactive [facility] Comment on above: Result Comment: HIV Negative HIV-1/HIV-2 antibodies and HIV-1 p24 antigen were NOT detected. There is no laboratory evidence of HIV infection. Performed By: #### C BC #### [facility] [address] [place] [address] Dr. Isi Forbes RPR QUANTon 06-05-2022 Rapid Plasma Reagin, Quant Non-Reactive Normal NonRea<1:1 [facility] Comment on above: Result Comment: Plea se Note: This test does not meet current guidelines for screening and diagnosis of syphilis. This test is intended for following treatment response in patients being treated for syphilis infection. To screen for syphilis infection, a reflex cascade that includes both RPR and a treponema-specific assay should be utilized, such as Treponema pallidum (Syphilis) Screening [place] (721777) or Rapid Plasma Reagin (RPR) Test With Reflex to Quantitative RPR and Confirmatory Treponema pallidum Antibodies (206175). Performed By: #### R PRQ #### [facility] [address] [place] [address] Dr. Isi Forbes RUBELLA AB IGGon 06-05-2022 Rubella Antibodies, IgG 6.87 index Normal Immune >0.99 [facility] Comment on above: Result Comment: Non- immune <0.90 Equivocal 0.90 - 0.99 Immune >0.99 Performed By: #### R PRQ #### [facility] [address] [place] [address] Dr. Isi Forbes CBC AUTO DIFFon 06-04-2022 BASO # 0.0 103/ul Normal 0.0-0.1 [facility] Comment on above: Performed By: #### C BC #### [facility] [address] [place] [address] Dr. Isi Forbes Basophils/100 WBC (Bld) 0.5 % Normal 0.2-2.0 [facility] Comment on above: Performed By: #### C BC #### [facility] [address] [place] [address] Dr. Isi Forbes EO # 0.1 103/ul Normal 0.0-0.7 [facility] Comment on above: Performed By: #### C BC #### [facility] [address] [place] [address] Dr. Isi Forbes Eosinophils/100 WBC (Bld) 1.5 % Normal 0.9-7.0 [facility] Comment on above: Performed By: #### C BC #### [facility] [address] [place] [address] Dr. Isi Forbes Erythrocyte distribution width (RBC) [Ratio] 12.1 % Normal 11.0-15.0 [facility] Comment on above: Performed By: #### C BC #### [facility] [address] [place] [address] Dr. Isi Forbes Hematocrit (Bld) [Volume fraction] 35.3 % Critically low 36.0-48.0 [facility] Comment on above: Performed By: #### C BC #### [facility] [address] [place] [address] Dr. Isi Forbes Hemoglobin (Bld) [Mass/Vol] 12.2 g/dL Normal 12.0-16.0 [facility] Comment on above: Performed By: #### C BC #### [facility] [address] [place] [address] Dr. Isi Forbes IG # 0.03 10e3/ul Normal 0.00-0.03 [facility] Comment on above: Performed By: #### C BC #### [facility] [address] [place] [address] Dr. Isi Forbes IG % 0.3 % Normal 0.0-0.5 [facility] Comment on above: Performed By: #### C BC #### [facility] [address] [place] [address] Dr. Isi Forbes LYMPH # 1.7 103/ul Normal 1.2-3.8 [facility] Comment on above: Performed By: #### C BC #### [facility] [address] [place] [address] Dr. Isi Forbes Lymphocytes/100 WBC (Bld) 20.1 % Critically low 20.5-60.0 [facility] Comment on above: Performed By: #### C BC #### [facility] [address] [place] [address] Dr. Isi Forbes MANUAL DIFF REQ NO Normal [facility] Comment on above: Performed By: #### C BC #### [facility] [address] [place] [address] Dr. Isi Forbes MCH (RBC) [Entitic mass] 30.7 pg Normal 26.7-34.0 [facility] Comment on above: Performed By: #### C BC #### [facility] [address] [place] [address] Dr. Isi Forbes MCHC (RBC) [Mass/Vol] 34.6 g/dL Normal 29.9-35.2 [facility] Comment on above: Performed By: #### C BC #### [facility] [address] [address] [address] Isi Forbes MCV (RBC) [Entitic vol] 88.9 fL Normal 81.0-99.0 [facility] Comment on above: Performed By: #### C BC #### [facility] [address] [address] [address] Isi Forbes MONO # 0.5 103/ul Normal 0.3-0.8 [facility] Comment on above: Performed By: #### C BC #### [facility] [address] [place] [address] Dr. Isi Forbes Monocytes/100 WBC (Bld) 5.4 % Normal 1.7-12.0 [facility] Comment on above: Performed By: #### C BC #### [facility] [address] [place] [address] Dr. Isi Forbes NEUT # 6.2 103/ul Normal 1.4-6.5 [facility] Comment on above: Performed By: #### C BC #### [facility] [address] [place] [address] Dr. Isi Forbes Neutrophils/100 WBC (Bld) 72.2 % Normal 43.0-75.0 [facility] Comment on above: Performed By: #### C BC #### [facility] [address] [place] [address] Dr. Isi Forbes Platelet mean volume (Bld) [Entitic vol] 9.4 fL Critically low 9.5-13.5 [facility] Comment on above: Performed By: #### C BC #### [facility] [address] [place] [address] Dr. Isi Forbes PLT 257 103/ul Normal 150-450 [facility] Comment on above: Performed By: #### C BC #### [facility] [address] [place] [address] Dr. Isi Forbes RBC 3.97 106/ul Critically low 4.20-5.[address] [facility] Comment on above: Performed By: #### C BC #### [facility] [address] [address] [address] Isi Forbes WBC 8.6 103/ul Normal 4.0-11.0 [facility] Comment on above: Performed By: #### C BC #### [facility] [address] [place] [address] Dr. Isi Forbes CULTURE URINEon 06-04-2022 CULTURE URINE Culture Observations : LIGHT GROWTH OF MIXED GENITAL ALOK. NO POTENTIAL PATHOGENS SEEN. Normal [facility] Comment on above: Performed By: #### U RCX #### [facility] [address] [address] [address] Isi Forbes DRUG SCREEN RAPID (URINE)on 06-04-2022 AMP Negative Normal NEGATIVE [facility] Comment on above: Performed By: #### G TT3P #### [facility] [address] [place] [address] Dr. Isi Forbes BAR Negative Normal NEGATIVE [facility] Comment on above: Performed By: #### G TT3P #### [facility] [address] [place] [address] Dr. Isi Forbes BUP Negative Normal NEGATIVE [facility] Comment on above: Performed By: #### G TT3P #### [facility] [address] [place] [address] Dr. Isi Forbes BZO Negative Normal NEGATIVE [facility] Comment on above: Performed By: #### G TT3P #### [facility] [address] [place] [address] Dr. Isi Forbes BEATA Negative Normal NEGATIVE [facility] Comment on above: Performed By: #### G TT3P #### [facility] [address] [place] [address] Dr. Isi Forbes CUT-OFFS SEE BELOW Normal [facility] Comment on above: Result Comment: AMP (Amphetamine): [...] By: #### G TT3P #### [facility] [address] [place] [address] Dr. Isi Forbes DRUG CUT HEADER DRUG CLASS TEST SYSTEM CUT-OFF CONCENTRATIONS ARE FOLLOWS: Normal [facility] Comment on above: Performed By: #### G TT3P #### [facility] [address] [place] [address] Dr. Isi Forbes mAMP Negative Normal NEGATIVE [facility] Comment on above: Performed By: #### G TT3P #### [facility] [address] [place] [address] Dr. Isi Forbes MTD Negative Normal NEGATIVE [facility] Comment on above: Performed By: #### G TT3P #### [facility] [address] [place] [address] Dr. Isi Forbes OPI Negative Normal NEGATIVE [facility] Comment on above: Performed By: #### G TT3P #### [facility] [address] [place] [address] Dr. Isi Forbes OXY Negative Normal NEGATIVE [facility] Comment on above: Performed By: #### G TT3P #### [facility] [address] [place] [address] Dr. Isi Forbes PCP Negative Normal NEGATIVE [facility] Comment on above: Performed By: #### G TT3P #### [facility] [address] [place] [address] Dr. Isi Forbes PPX Negative Normal NEGATIVE [facility] Comment on above: Performed By: #### G TT3P #### [facility] [address] [place] [address] Dr. Isi Forbes TCA Negative Normal NEGATIVE [facility] Comment on above: Performed By: #### G TT3P #### [facility] [address] [address] [address] Isi Forbes THC Positive Abnormal NEGATIVE [facility] Comment on above: Performed By: #### G TT3P #### [facility] [address] [place] [address] Dr. Isi Forbes GLYCOHEMOGLOBIN A1Con 2021 ADA RECOMMENDATION SEE BELOW Normal [facility] Comment on above: Result Comment: ADA RECOMMENDED LIMIT 4.0 - 6.0 ADA THERAPEUTIC TARGET < 7.0 ACTION SUGGESTED > 7.0 Performed By: #### A 1C #### [facility] [address] [place] [address] Dr. Isi Forbes Glucose [Mass/Vol] 111 mg/dL Normal The [facility] Comment on above: Performed By: #### A 1C #### [facility] [address] [place] [address] Dr. Isi Forbes HbA1c (Bld) [Mass fraction] 5.5 % Normal 4.5-6.2 [facility] Comment on above: Performed By: #### A 1C #### [facility] [address] [place] [address] Dr. Isi Forbes AUTUMN BOX TEST PT SEND OUTo n 06-04-2022 SENT TO REF LAB 06/04/2022 Normal The [facility] Comment on above: Performed By: #### R PRQ #### [facility] [address] [place] [address] Dr. Isi Forbes TYPE AND SCREENon 06-04-2022 TYPE AND SCREEN Negative Normal The [facility] Comment on above: Performed By: #### T NS #### [facility] [address] [place] [address] Dr. Isi Forbes US PREG TVon 05-18-2022 [...] live intrauterine . Electronically authenticated by: FREDY JUANITAKECIA Date: 2022-05-18 05:51 Normal [facility] HCG,Urineon 11-04-2020 Beta HCG ( test) Ql (U) Negative Normal [facility] Comment on above: Result Comment: PERF ORMED BY: [place] [address] PATHOLOGIST STAFF COMMAND AND CONTROL OFFICER MIKE LECHUGA M.D. Performed By: #### U HCG #### [address] Yassine 11-04-2020 L - -------- Specimen: [id number] Received: 11/04/20 Status: PRASAD Sandoval Num: [id number] Spec Type: Surgical Subm Dr: Esequiel Lyles MD Tissues: A Duodenum - Biopsy (DUODENAL BX) Procedures: HE Stain/2, Gross/Micro L4 -------- Patient Age/Sex Location Account Attending Physician -------- Debbi Prado 30/F [id number] Esequiel Lyles MD -------- SPEC NUM: RECD: 11/04/20 STATUS: PRASAD NICK NUM: [id number] LADAN: 11/04/20 [facility] DR: Esequiel Lyles MD ENTERED: 11/04/[address] [facility] [address]: BETINA TYPE: Surgical DEPT: S ORDERED: [...] Specimen: Received: 11/04/20 Status: PRASAD Nick Num: [id number] Spec Type: Surgical Subm Dr: Esequiel Lyles MD Tissues: A Duodenum - Biopsy (DUODENAL BX) Procedures: HE Stain/2, Gross/Micro L4 -------- Patient: Debbi Prado [id number] (Continued) -------- Specimen: Received: 11/04/20 (Continued) Signed (signature on file) Rhys Mckenzie MD 11/05/20 1050 -------- Specimen: Received: 11/04/20 Status: PRASAD Nick Num: [id number] Spec Type: Surgical Subm Dr: Esequiel Lyles MD Tissues: A Duodenum - Biopsy (DUODENAL BX) Procedures: HE Stain/2, Gross/Micro L4 -------- Patient: Debbi Prado [id number] (Continued) -------- Specimen: Received: 11/04/20 (Continued) CPT Codes 08100 -------- -------- Specimen: Received: 11/04/20 Status: KRISTIEDmitriy Nick Num: [id number] Spec Type: Surgical Subm Dr: Esequiel Lyles MD Tissues: A Duodenum - Biopsy (DUODENAL BX) Procedures: HE Stain/2, Gross/Micro L4 -------- Patient: Debbi Prado [id number] (Continued) -------- Signed (signature on file) Rhys Mckenzie MD 11/05/20 1050 Normal [facility] SARS-CoV-2 (COVID-19) RNA SARA+probe Ql (Unsp spec) Negative Normal Negative [facility] Comment on above: Order Comment: Healt hcare Worker?: N Result Comment: Refe rence: Negative Testing for SARS-CoV-2 by RT-PCR This test was developed and its performance characteristics determined by [employer] and validated at the [facility]. This test has not been FDA cleared [...] is terminated or revoked sooner. PERFORMED BY: [facility] [place] [address] PATHOLOGIST STAFF COMMAND AND CONTROL OFFICER MIKE LECHUGA M.D. Performed By: #### C OVID-19 [facility] #### [facility] [address] [id number] [facility] Coding Summaryon 05-26-2020 Coding Summary CODING DATE: 05/26/2020 [facility] STATUS: Home PAYOR: León Myers ADMIT [...] Ashleigh Posada Date Saved: 05/26/2020 08:27 am [facility] Consent Formson 05-26-2020 Consent Forms [id number] [facility] 05-26-2020 Provider Orders [id number] .[facility] 2019 Novel Coronavirus (CoVI D-19), SARA LCon 05-24-2020 SARS-CoV-2, SARA (COVID-19) LC Not Detected Not Detected [facility] Comment on above: Order Comment: [id number] [phone] Result Comment: This nucleic acid amplification test was developed and its performance characteristics determined by [employer]. Nucleic acid amplification tests include PCR and [...] detected) result in this assay. Performed At: [facility] [address] [facility] [place] [id number] Rere Bejarano MD Ph:[phone] Performed By: #### 6 [id number] ####[facility] (DEFAULT)[address] [place] [address] Progress Note - Nurseon Progress Note - Nurse Nasal swab perform ed without complication. Patient tolerated well. Education given. Patient verbalized understanding. [Electronically Signed on: 05/22/2020 11:25 EST] Genesis Ndiaye RN [Verified on: 05/22/2020 11:25 EST] Genesis Ndiaye RN [facility] Ambulatory Clinical Summaryo n 04-11-2020 Ambulatory Clinical Summary {[id number] [facility] Coding Summaryon 02-21-2020 Coding Summary CODING DATE: 02/21/2020 [facility] STATUS: Home PAYOR: [employer] ADMIT [...] Ashleigh Posada Date Saved: 02/21/2020 02:14 pm [facility] Consent Formson 02-18-2020 Consent Forms [id number] .00OTGTIFF [facility] 2019 Novel Coronavirus (CoVI D-19), SARA LCon 02-16-2020 SARS-CoV-2, SARA (COVID-19) LC Not Detected Not Detected [facility] Comment on above: Result Comment: This test was developed and its performance characteristics determined by [employer]. This test has not been FDA cleared [...] detected) result in this assay. Performed At: [facility] [address] [facility] [place] [id number] Rere Bejarano MD Ph:[phone] Performed By: #### 6 [id number] ####[facility] (DEFAULT)[address] [place] [address] Provider Orderson 02-15-2020 Provider Orders [id number] .00OTGTIFF [facility] Provider Orderson 02-14-2020 Provider Orders [id number] .00OTGTIFF [facility] IgA, Quant.on 02-13-2020 IgA [Mass/Vol] 202 mg/dL 87-352 [facility] Comment on above: Result Comment: Perf ormed at: [facility] [id number] PhD Dennis Toussaint Performed By: #### 2 651219, 1945815, 02439341, 6550677, 70782439, 51875190, [id number] ####[facility] [address] [place] [address] t-TRANSGLUTAMINASE IgAon tTG IgA Qn (S) <2 0-3 [facility] Comment on above: Result Comment: Nega tive 0 - 3 Weak Positive 4 - 10 Positive >10 Tissue Transglutaminase (tTG) has been identified as the endomysial antigen. Studies have demonstr- ated that endomysial IgA antibodies have over 99% specificity for gluten sensitive enteropathy. Performed at: [address] [id number] PhD Dennis Toussaint Performed By: #### 2 065648, 1259877, 13919736, 7675396, 68901245, 07454739, [id number] #### [facility] [address] [place] [address] Coding Summary.on 02-12-2020 Coding Summary. 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 Performed By: #### 2 207859, 0877886, 37790285, 5591511, 84342524, 74348733, 12819911 #### [facility] [address] [place] [address] Basophils/Leukocytes Auto (Bld) [Pure # fraction] 0.0 E9/L Normal 0.0-0.2 [facility] Comment on above: Order Comment: Order Added by Discern Expert. Performed By: #### 2 835655, 5435773, 68737528, 3200734, 50328160, 91051195, 95583710 #### [facility] [address] [place] [address] Eosinophils/100 WBC (Bld) 1.7 % Normal 0.0-8.0 [facility] Comment on above: Order Comment: Order Added by Lila Expert. Performed By: #### 2 644079, 9367437, 18832165, 9650785, 73030059, 47380893, 52955431 #### [facility] [address] [place] [address] Eosinophils/Leukocyte s Auto (Bld) [Pure # fraction] 0.2 E9/L Normal 0.0-0.5 [facility] Comment on above: Order Comment: Order Added by Discern Expert. Performed By: #### 2 384768, 4587906, 37312986, 7655818, 59828824, 25164771, 16286609 #### [facility] [address] [place] [address] Lymphocytes/100 WBC (Bld) 21.9 % Normal 14.0-50.0 [facility] Comment on above: Order Comment: Order Added by Discern Expert. Performed By: #### 2 402183, 1253329, 79682914, 2317469, 73862752, 86983162, 04171584 #### [facility] [address] [place] [address] Lymphocytes/Leukocyte s Auto (Bld) [Pure # fraction] 2.0 E9/L Normal 1.0-4.0 [facility] Comment on above: Order Comment: Order Added by Lila Expert. Performed By: #### 2 687478, 8795665, 35573246, 8622941, 47658862, 51442257, 18246797 #### [facility] [address] [place] [address] Monocytes/100 WBC (Bld) 7.6 % Normal 4.0-14.0 [facility] Comment on above: Order Comment: Order Added by Discern Expert. Performed By: #### 2 932218, 7637243, 22937513, 8205673, 27936618, 07343578, 77837458 #### [facility] [address] [place] [address] Monocytes/Leukocytes Auto (Bld) [Pure # fraction] 0.7 E9/L Normal 0.2-1.0 [facility] Comment on above: Order Comment: Order Added by Discern Expert. Performed By: #### 2 926683, 5030980, 67854671, 6123909, 50889062, 77599288, 74643422 #### [facility] [address] [place] [address] Neutrophils/100 WBC (Bld) 68.3 % Normal 36.0-75.0 [facility] Comment on above: Order Comment: Order Added by Discern Expert. Performed By: #### 2 362765, 1430656, 19088487, 0826365, 26311858, 07911310, 80851141 #### [facility] [address] [place] [address] Neutrophils/Leukocyte s Auto (Bld) [Pure # fraction] 6.2 E9/L Normal 2.0-7.5 [facility] Comment on above: Order Comment: Order Added by Discern Expert. Performed By: #### 2 180734, 3218918, 63760677, 6621317, 20704157, 44264947, 37878584 #### [facility] [address] [place] [address] CBC w/ Auto Diffon 0 Erythrocyte distribution width (RBC) [Ratio] 13.1 % Normal 10.9-14.2 [facility] Comment on above: Performed By: #### 2 098418, 1629973, 27280263, 5782985, 34288359, 30076654, 47731089 #### [facility] [address] [place] [address] Hematocrit (Bld) [Volume fraction] 41.8 % Normal 34.0-46.0 [facility] Comment on above: Performed By: #### 2 624527, 8072626, 33889683, 1553979, 81096849, 86549293, 94297116 #### [facility] [address] [address] Hemoglobin (Bld) [Mass/Vol] 13.9 g/dL Normal 12.0-16.0 [facility] Comment on above: Performed By: #### 2 793861, 3737775, 61237175, 1092175, 42514399, 01530394, 81778400 #### [facility] [address] [address] MCH (RBC) [Entitic mass] 30.7 pg Normal 27.0-34.0 [facility] Comment on above: Performed By: #### 2 961672, 7913700, 50699477, 9262047, 39390536, 26544999, 92185879 #### [facility] [address] [address] MCHC (RBC) [Mass/Vol] 33.4 g/dL Normal 31.4-36.0 [facility] Comment on above: Performed By: #### 2 749000, 1518321, 59776739, 4258747, 35324210, 69677380, 16432269 #### [facility] [address] [place] [address] MCV (RBC) [Entitic vol] 92.1 fL Normal 80.0-100.0 [facility] Comment on above: Performed By: #### 2 193422, 2527616, 09896699, 4419188, 51459668, 33441674, 98542575 #### [facility] [address] [place] [address] Platelet mean volume (Bld) [Entitic vol] 7.7 fL Normal 6.4-10.8 [facility] Comment on above: Performed By: #### 2 750346, 3204835, 38338656, 6839999, 83893367, 24815783, 04373513 #### [facility] [address] [place] [address] Platelets (Bld) [#/Vol] 338.0 E9/L Normal 150.0-500.0 [facility] Comment on above: Performed By: #### 2 476365, 5214916, 21782745, 9598621, 12888729, 92147837, 36070045 #### [facility] [address] [place] [address] RBC (Bld) [#/Vol] 4.5 E12/L Normal 4.3-5.9 [facility] Comment on above: Performed By: #### 2 092323, 1010823, 95288652, 8851262, 89508831, 24406125, 44594770 #### [facility] [address] [place] [address] WBC corrected for nucl RBC Auto (Bld) [#/Vol] 9.1 E9/L Normal 4.0-11.0 [facility] Comment on above: Performed By: #### 2 785884, 4302077, 34623271, 0116538, 48923434, 29118088, 38051600 #### [facility] [address] [place] [address] CMPon 02-11-2020 Albumin [Mass/Vol] 1.4 g/dL Normal 1.1-2.2 [facility] Comment on above: Performed By: #### 2 989147, 9730968, 77263448, 1418686, 64266177, 46229538, 47255577 #### [facility] [address] [place] [address] Albumin [Mass/Vol] 4.5 g/dL Normal 3.3-5.0 [facility] Comment on above: Performed By: #### 2 808662, 2409522, 95254950, 0169994, 07843675, 01969646, 88226703 #### [facility] [address] [place] [address] ALP [Catalytic activity/Vol] 58 Int._Unit/L Normal 21-98 [facility] Comment on above: Performed By: #### 2 687010, 8725902, 67312356, 1431403, 97211364, 35495144, 27296495 #### [facility] [address] [place] [address] ALT No additional P-5'-P [Catalytic activity/Vol] 33 Int._Unit/L Normal 6-46 [facility] Comment on above: Performed By: #### 2 913512, 6787227, 45482481, 6266203, 95791266, 79621832, 19157808 #### [facility] [address] [place] [address] Anion gap [Moles/Vol] 12 mmol/L Normal 6-16 [facility] Comment on above: Performed By: #### 2 817880, 0988789, 74335870, 3580768, 84192667, 78386640, 80907210 #### [facility] [address] [place] [address] AST [Catalytic activity/Vol] 22 Int._Unit/L Normal 5-43 [facility] Comment on above: Performed By: #### 2 341102, 7567244, 50712675, 3187660, 26868294, 56630079, 72106008 #### [facility] [address] [place] [address] Bilirubin [Mass/Vol] 0.5 mg/dL Normal 0.0-1.1 [facility] Comment on above: Performed By: #### 2 713597, 3395673, 64279780, 3034601, 50376183, 29496651, 63948678 #### [facility] [address] [place] [address] Calcium [Mass/Vol] 9.2 mg/dL Normal 8.9-11.1 [facility] Comment on above: Performed By: #### 2 515053, 5708029, 47453353, 5567418, 78167219, 67102103, 22696403 #### [facility] [address] [place] [address] Chloride [Moles/Vol] 106 mmol/L Normal 101-111 [facility] Comment on above: Performed By: #### 2 573729, 6989166, 27517221, 0254587, 55698723, 40376396, 48289218 #### [facility] [address] [place] [address] CO2 [Moles/Vol] 23 mmol/L Normal 21-31 [facility] Comment on above: Performed By: #### 2 265706, 3350028, 24460212, 9750284, 64766040, 05048100, 65724238 #### [facility] [address] [place] [address] Creatinine [Mass/Vol] 0.6 mg/dL Normal 0.5-1.3 [facility] Comment on above: Performed By: #### 2 155740, 4443336, 76112056, 9113477, 21840371, 29928832, 68248197 #### [facility] [address] [place] [address] Globulin (S) [Mass/Vol] 3.3 g/dL Normal 1.4-4.0 [facility] Comment on above: Performed By: #### 2 169680, 3345418, 10794936, 4918472, 85077941, 95614353, 22344167 #### [facility] [address] [place] [address] Glucose [Mass/Vol] 94 mg/dL Normal 55-199 [facility] Comment on above: Result Comment: If t his glucose result represents a fasting glucose, interpretation should refer to the following reference range: 55-99 mg/dL Performed By: #### 2 460071, 9723195, 74624516, 3176727, 06011110, 34028664, 53602614 #### [facility] [address] [place] [address] Potassium [Moles/Vol] 3.9 mmol/L Normal 3.5-5.3 [facility] Comment on above: Performed By: #### 2 892865, 4827430, 70797810, 2963968, 13954634, 41269184, 78554814 #### [facility] [address] [place] [address] Protein [Mass/Vol] 7.8 g/dL Normal 6.0-7.8 [facility] Comment on above: Performed By: #### 2 829443, 0806661, 77323505, 2222963, 35568552, 07886329, 68870355 #### [facility] [address] [place] [address] Sodium [Moles/Vol] 137 mmol/L Normal 135-145 [facility] Comment on above: Performed By: #### 2 030678, 8587316, 63259454, 7474323, 07869789, 54972602, 53865912 #### [facility] [address] [place] [address] Urea nitrogen [Mass/Vol] 12 mg/dL Normal 5-21 [facility] Comment on above: Performed By: #### 2 421783, 4217836, 53899393, 2126316, 80328511, 54896870, 12565669 #### [facility] [address] [place] [address] Urea nitrogen/Creatinine [Mass ratio] 20 No Units Normal 10-20 [facility] Comment on above: Performed By: #### 2 143796, 5021690, 56200270, 1468859, 37511731, 24161767, 18760618 #### [facility] [address] [place] [address] Coding Summaryon 02-11-2020 Coding Summary CODING DATE: 02/11/2020 [facility] STATUS: Home PAYOR: [employer] ADMIT [...] Connie Akers Date Saved: 02/11/2020 08:49 am [facility] Consent for Treatmenton 01-16 Consent for Treatment [id number] .00CD:127 Normal [facility] Gastroenterology Office/Clin ic Noteon 02-11-2020 Gastroenterology [...] q8hr, # 20 tab(s), Refills(s) 1, Pharmacy: [facility]/pharmacy #[id number], 167.64, cm, 02/11/20 15:12:00 EDT, Height/Length Measured, [...] Information Emma PARSONS MD Within 2 weeks [facility] [address] [place] [address]- Additional Instructions: Patient Education Nausea, Adult Problem [...] Family history is negative Normal [facility] Comment on above: Result Comment: Elec ildefonsoally Signed By: BRENDA OSCAR, Emma\.br\Date and Time [...] 03/28/2013 Document Reviewed: 03/15/2012 ExitCare? Patient Information ?2014 [employer]. Normal [facility] Sed Rate Automatedon 020 ESR (Bld) [Velocity] 10 mm/h Normal 0-34 [facility] Comment on above: Performed By: #### 2 986621, 2171211, 29281660, 3774716, 35638316, 99916422, 13765640 #### [facility] [address] [place] [address] eGFRon 02-11-2020 GFR/1.73 sq M predicted among blacks MDRD (S/P/Bld) [Vol rate/Area] mL/min/{1.73_m2} Normal >=59 [facility] Comment on above: Order Comment: Order added by Discern Expert. Result Comment: eGFR is race adjusted. AA=. Performed By: #### 2 974035, 2503237, 22611171, 9647746, 27890415, 12022607, 50015885 #### [facility] [address] [place] [address] GFR/1.73 sq M predicted among non-blacks MDRD (S/P/Bld) [Vol rate/Area] mL/min/{1.73_m2} Normal >=59 [facility] Comment on above: Order Comment: Order added by Discern Expert. Result Comment: Senior Java Programmer Analyst eulogio kidney disease could be indicated at eGFR's of less than 60 mL/min/1.73m2. Kidney failure is indicated at less than 15 mL/min/1.73m2. Performed By: #### 2 357566, 1858101, 97301022, 2057882, 02990005, 08952940, 45013221 #### [facility] [address] [place] [address] Historical Records Officeon 02-08-2020 Historical Records Office [id number]. 00CD:127 Normal [facility] Lab - Immunology/Serology Re sultson 01-31-2020 Lab - Immunology/Serology Results [id number] Normal [facility] SARS-CoV-2 (COVID-19) PCRon 01-30-2020 COVID-19 PCR Not Detected Normal Not Detected [facility] Comment on above: Order Comment: Sent to [facility] Performed By: #### 6 [id number] ####[facility] (DEFAULT)[address] [place] [address] Provider Orderson 01-29-2020 Provider Orders [id number] .00OTGTIFF [facility] Vital Signs Date Time Vital Sign Value Performing Clinician Cheryl colindres 06-13-2024 13:42-0500 Body mass index (BMI) [Ratio] 36.96 kg/m2 Scott Tu DO Work Phone: [facility] 06-13-2024 13:42-0500 Body weight 100.75 kg Scott Tu DO Work Phone: [facility] 06-13-2024 13:42-0500 Diastolic blood pressure 76 mm[Hg] Scott Tu DO Work Phone: [facility] 06-13-2024 13:42-0500 Systolic blood pressure 128 mm[Hg] Scott Tu DO Work Phone: [facility] 05-30-2024 15:14-0500 Body mass index (BMI) [Ratio] 35.41 kg/m2 Yeni Chaney PA Work Phone: [facility] 05-30-2024 15:14-0500 Body weight 96.53 kg Yeni Chaney PA Work Phone: [facility] 05-30-2024 15:14-0500 Diastolic blood pressure 74 mm[Hg] Yeni Chaney PA Work Phone: [facility] 05-30-2024 15:14-0500 Systolic blood pressure 116 mm[Hg] Yeni Chaney PA Work Phone: [facility] 05-16-2024 14:28-0400 Body mass index (BMI) [Ratio] 33.78 kg/m2 Yeni Puma PA Work Phone: [facility] 05-16-2024 14:28-0400 Body weight 92.08 kg Yeni Chaney PA Work Phone: [facility] 05-16-2024 14:28-0400 Diastolic blood pressure 72 mm[Hg] Yeni Chaney PA Work Phone: [facility] 05-16-2024 14:28-0400 Systolic blood pressure 124 mm[Hg] Yeni ISAAC Work Phone: [facility] 05-02-2024 13:46-0400 Body mass index (BMI) [Ratio] 33.08 kg/m2 Yeni ISAAC Work Phone: [facility] 05-02-2024 13:46-0400 Body weight 90.17 kg Yeni ISAAC Work Phone: [facility] 05-02-2024 13:46-0400 Diastolic blood pressure 80 mm[Hg] Yeni ISAAC Work Phone: [facility] [facility]24 13:46-0400 Systolic blood pressure 118 mm[Hg] Yeni ISAAC Work Phone: [facility] Healthcare Encounters Encounter Date Encounter Type Care Provider Facility Start: 06-13-2024 End: 06-13-2024 Bamboo flowsheet Scott Tu DO Work Phone: [facility] Start: 06-13-2024 End: 06-13-2024 Bamboo flowsheet Scott Tu DO Work Phone: [facility] Start: 06-13-2024 End: 06-13-2024 flow sheet Scott Tu DO Work Phone: [facility] Comment on above: Anemia during pregna ncy in third trimester; Third trimester ; 36 weeks gestation of Start: 06-02-2024 End: 06-02-2024 Emergency department patient visit ASHLEE [facility] Start: 05-30-2024 End: 05-30-2024 ambulatory YENI CHANEY Not Available Start: 05-30-2024 End: 05-30-2024 flow sheet Yeni ISAAC Work Phone: [facility] Comment on above: Third trimester preg jade; 34 weeks gestation of Start: 05-30-2024 End: 05-30-2024 Bamboo flowsheet Yeni ISAAC Work Phone: [facility] Start: 05-30-2024 End: 05-30-2024 Bamboo flowsheet Yeni ISAAC Work Phone: [facility] Start: 05-18-2024 End: 05-18-2024 Clinisync Result Encounter Yeni ISAAC Work Phone: [facility] Unsolicited Start: 05-18-2024 End: 05-18-2024 Clinisync Result Encounter Yeni ISAAC Work Phone: [facility] Unsolicited Start: 05-16-2024 End: 05-16-2024 flow sheet Yeni ISAAC Work Phone: [facility] Comment on above: Third trimester preg jade; 32 weeks gestation of ; induced hypertension, antepartum; Nonintractable headache, unspecified chronicity pattern, unspecified headache type; Nausea and vomiting in ; Exposure to STD Start: 05-16-2024 End: 05-16-2024 ambulatory YENI CHANEY Not Available Start: 05-16-2024 End: 05-16-2024 Bamboo flowsheet Yeni ISAAC Work Phone: [facility] Start: 05-16-2024 End: 05-16-2024 Bamboo flowsheet Yeni ISAAC Work Phone: [facility] Start: 05-16-2024 End: 05-16-2024 Clinisync Result Encounter Scott Tu DO Work Phone: [facility] Unsolicited Start: 05-07-2024 End: 05-07-2024 Clinisync Result Encounter Scott Tu DO Work Phone: [facility] Unsolicited Start: 05-07-2024 End: 05-07-2024 Clinisync Result Encounter Scott Tu DO Work Phone: [facility] Unsolicited Start: 05-02-2024 End: 05-02-2024 Bamboo flowsheet Yeni ISAAC Work Phone: [facility] Start: 05-02-2024 End: 05-02-2024 Bamboo flowsheet Yeni ISAAC Work Phone: [facility] Start: 05-02-2024 End: 05-02-2024 ambulatory YENI CHANEY Not Available Start: 05-02-2024 End: 05-02-2024 flow sheet Yeni Chaney PA Work Phone: [facility] Comment on above: Third trimester preg jade; 30 weeks gestation of ; Nausea and vomiting, unspecified vomiting type Start: 04-05-2024 End: 04-05-2024 ambulatory SCOTT TU Not Available Start: 03-15-2024 End: 03-15-2024 ambulatory SCOTT TU Not Available Start: 03-08-2024 End: 03-08-2024 ambulatory SCOTT TU Not Available Start: 02-23-2024 End: 02-23-2024 ambulatory YENI CHANEY Not Available Start: 02-09-2024 End: 02-09-2024 ambulatory YENI CHANEY Not Available Start: 01-24-2024 End: 01-24-2024 ambulatory SCOTT TU Not Available Start: 01-20-2024 End: 01-21-2024 Emergency department patient visit [facility] Start: 01-20-2024 End: 01-20-2024 Emergency department patient visit [facility] Start: 01-12-2024 End: 01-12-2024 ambulatory SCOTT TU Not Available Start: 12-15-2023 End: 12-15-2023 ambulatory SCOTT TU Not Available Start: 11-25-2023 End: 11-25-2023 ambulatory SCOTT TU Not Available Start: 10-06-2023 End: 10-06-2023 ambulatory SCOTT TU Not Available Start: 08-08-2023 End: 08-08-2023 ambulatory SCOTT TU Not Available Start: 06-23-2023 End: 06-23-2023 ambulatory SCOTT TU Not Available Start: 12-09-2022 End: 12-11-2022 Evaluation and management of inpatient DR SCOTT MAE . Facility:[facility] Start: 11-24-2022 End: 11-24-2022 [...] Date Procedure Procedure Detail Performing Clinician Start: 06-13-2024 Urnls dip stick/tabl et rgnt non-auto w/o micrscp Scott Tu DO Work Phone: Start: 05-18-2024 [facility] TOTAL PROTEIN 24 HOUR URINE Yeni ISAAC Work Phone: Start: 05-16-2024 ALL CBC WITH AUTO DIFF Scott Tu DO Work Phone: Start: 05-16-2024 Urnls dip stick/tabl et rgnt non-auto w/o micrscp Yeni ISAAC Work Phone: Start: 05-07-2024 [facility] UA (CLEAN/CATCH) [employer]/MICRO IF IND. Scott Tu DO Work Phone: Start: 05-02-2024 Urnls dip stick/tabl et rgnt non-auto w/o micrscp Scott Tu DO Work Phone: Start: 12-09-2022 Extraction of Produc ts of Conception, Low Cervical, Open Approach DR MARIO MARTINEZ . Plan of Treatment Date Care Activity Detail Author Start: 06-20-2024 End: 06-20-2024 Patient encounter procedure 06/20/2024 1:10 PM EST Routine [facility] [address] [place] [id number] Yeni Chaney PA [address] [place] [address] [facility] Start: 06-13-2024 End: 06-13-2025 Strep B DNA probe, amplification Strep B DNA probe, amplification Lab Routine Third trimester Expected: 06/13/2024 (Approximate), Expires: 06/13/2025 [facility] Work Phone: Comment on above: Expected: 06/13/2024 (Approximate), Expires: 06/13/2025 Start: 06-13-2024 End: 06-13-2024 Patient encounter procedure 06/13/2024 1:00 PM EST Routine [facility] [address] [place] [id number] Scott Mae DO [address] [place] [address] [facility] Start: 05-30-2024 End: 05-30-2024 Patient encounter procedure 05/30/2024 2:30 PM EST Routine [facility] [address] [place] [id number] Yeni Chaney PA [address] [place], [place] [id number] [facility] Start: 05-16-2024 End: 05-16-2024 Patient encounter procedure [facility] Comment on above: Arrived Start: 05-16-2024 End: 05-16-2025 Alanine aminotransferase [Enzymatic activity/volume] in Serum or Plasma ALT Lab Routine induced hypertension, antepartum Expected: 05/16/2024 (Approximate), Expires: 05/16/2025 [facility] Comment on above: Expected: 05/16/2024 (Approximate), Expires: 05/16/2025 Start: 05-16-2024 End: 05-16-2025 Aspartate aminotransferase [Enzymatic activity/volume] in Serum or Plasma AST Lab Routine induced hypertension, antepartum Expected: 05/16/2024 (Approximate), Expires: 05/16/2025 [facility] Comment on above: Expected: 05/16/2024 (Approximate), Expires: 05/16/2025 Start: 05-16-2024 End: 05-16-2025 CBC W Auto Differential panel - Blood CBC and differential Lab Routine induced hypertension, antepartum Expected: 05/16/2024 (Approximate), Expires: 05/16/2025 [facility] Comment on above: Expected: 05/16/2024 (Approximate), Expires: 05/16/2025 Start: 05-16-2024 End: 05-16-2025 Creatinine [Mass/volume] in Serum or Plasma Creatinine Lab Routine induced hypertension, antepartum Expected: 05/16/2024 (Approximate), Expires: 05/16/2025 [facility] Work Phone: Comment on above: Expected: 05/16/2024 (Approximate), Expires: 05/16/2025 Start: 05-16-2024 End: 05-16-2025 Lactate dehydrogenase [Enzymatic activity/volume] in Serum or Plasma by Lactate to pyruvate reaction Lactate dehydrogenase Lab Routine induced hypertension, antepartum Expected: 05/16/2024, Expires: 05/16/2025 [facility] Comment on above: Expected: 05/16/2024 , Expires: 05/16/2025 Start: 05-16-2024 End: 05-16-2025 Protein, urine, 24 hour Protein, urine, 24 hour Lab Routine induced hypertension, antepartum Expected: 05/16/2024 (Approximate), Expires: 05/16/2025 [facility] Comment on above: Expected: 05/16/2024 (Approximate), Expires: 05/16/2025 Start: 05-16-2024 End: 05-16-2025 Pt and ptt Pt and ptt Lab Routine induced hypertension, antepartum Expected: 05/16/2024, Expires: 05/16/2025 [facility] Comment on above: Expected: 05/16/2024 , Expires: 05/16/2025 Start: 05-16-2024 End: 05-16-2025 Urate [Mass/volume] in Serum or Plasma Uric acid Lab Routine induced hypertension, antepartum Expected: 05/16/2024 (Approximate), Expires: 05/16/2025 [facility] Comment on above: Expected: 05/16/2024 (Approximate), Expires: 05/16/2025 Start: 05-16-2024 End: 05-16-2025 Urea nitrogen [Mass/volume] in Serum or Plasma BUN Lab Routine induced hypertension, antepartum Expected: 05/16/2024, Expires: 05/16/2025 [facility] Comment on above: Expected: 05/16/2024 , Expires: 05/16/2025 Hemoglobin A1c/Hemoglobin.total in Blood Hemoglobin A1c Lab Routine induced hypertension, antepartum Ordered: 05/16/2024 [facility] Comment on above: Ordered: 05/16/2024 Payers Date Payer Category Payer Medicaid [id number] 2019 [facility] [id number] 1988 Unknown [id number] 09.02.840.1.168583.3.579. 2.593 1988 Unknown [id number] 16.840.1.096436.3.579. 2.593 1988 Unknown [id number] 2.16.840.1.934655.3.579. 2.593 1988 Unknown [id number] 2.16.840.1.471560.3.579. 2.593 1988 Unknown [id number] 2.16.840.1.650432.3.579. 2.593 1988 Unknown [id number] 2.16.840.1.576334.3.579. 2.593 1988 Unknown [id number] 2.16.840.1.628849.3.579. 2.593 1988 Unknown [id number] 2.16.840.1.626356.3.579. 2.593 1988 Unknown [id number] 2.16.840.1.509486.3.579. 2.593 1988 Unknown [id number] 2.16840.1.683944.3.579. 2.593 1988 Unknown [id number] 2.16.840.1.892663.3.579. 2.593 1988 Unknown [id number] 2.16.840.1.973115.3.579. 2.1286 1988 Unknown [id number] 2.16.840.1.754782.3.579. 2.1259 1988 Unknown [id number] 2.16.840.1.195704.3.579. 2.1259 1988 Unknown [id number] 2.16.840.1.047511.3.579. 2.1259 1988 Unknown [id number] 2.16.840.1.336374.3.579. 2.1259 1988 Unknown [id number] 2.16.840.1.426535.3.579. 2.1259 1988 Unknown [id number] 2.16.840.1.057257.3.579. 2.1259 1988 Unknown [id number] 2.16.840.1.214049.3.579. 2.9 1988 Unknown [id number] 2.16.840.1.260342.3.579. 2.9 1988 Unknown [id number] 2.16.840.1.760836.3.579. 2.1258 1988 Unknown [id number] 2.16.840.1.097286.3.579. 2.9 1988 Unknown [id number] 2.16.840.1.496414.3.579. 2.1258 1988 Unknown [id number] 2.16.840.1.740044.3.579. 2.9 1988 Unknown [id number] 2.16.840.1.576596.3.579. 2.1258 1988 Unknown [id number] 2.16.840.1.456129.3.579. 2.9 1988 Unknown [id number] 2.16.840.1.108830.3.579. 2.9 1988 Unknown [id number] 2.16.840.1.703732.3.579. 2.1286 1959 Self-pay [id number] 1959 Unknown [id number] Unknown [id number] 2.16.840.1.260046.3.579. 2.593 Social History Date Type Detail Facility Start: 06-13-2023 Tobacco smoking stat [facility] Ex-smoker [facility] Start: 07-18-2006 End: 01-15-2021 History of tobacco use Current smoker [facility] Start: 07-18-2006 End: 01-15-2021 History of tobacco use Cigarette Smoker [facility] Start: 04-05-2024 End: 06-13-2024 Alcoholic beverage intake Lifetime non-drinker (finding) [facility] Start: 06-13-2023 End: 08-08-2023 History of Social function [facility] Start: 06-13-2023 End: 08-08-2023 Tobacco use panel [facility] Start: 06-13-2023 Alcohol Comment caffeine: occasional [facility] Start: 10-16-2023 [facility] Start: 1988 Sex assigned at Not on file [facility] Start: 09-29-2022 Gender identity Identifies as female gender (finding) [facility] History of Present illness Narrative 06-13-2024 Elif OrellanaOBINNA - 06/13/2024 1:00 PM EST Note Date & Type Note Facility 06-13-2024 History of Presen t illness Narrative Reason for Appointment: Patient ID: Debbi Prado is a 33 y.o. female who presents for No chief complaint on file. Patient presents today for Return OB appointment. MEDICATIONS Current Outpatient Medications Medication Instructions iron polysaccharides (PROFE) 391.3 mg, Oral, Daily ondansetron ODT (ZOFRAN-ODT) 4 mg, Oral, Every 6 hours PRN ALLERGIES Allergies Allergen Reactions Azithromycin Hives and Itching Other Reaction(s): Unknown Reaction PROBLEMS Active Ambulatory Problems Diagnosis Date Noted Bipolar 1 disorder ([facility]) 01/20/2023 Anxiety with depression 01/20/2023 Fatty liver 01/20/2023 Generalized anxiety disorder ([facility]/HCC) 01/20/2023 Irregular menses 01/20/2023 Irritable bowel syndrome with diarrhea 01/20/2023 Mild chronic gastritis 01/20/2023 Grief at loss of child ([facility]) 10/06/2023 Persistent depressive disorder ([facility]) 10/06/2023 Syncope 03/15/2024 Low-lying placenta 03/15/2024 Dizziness 03/15/2024 Dehydration 03/15/2024 Migraine without status migrainosus, not intractable ([facility]) 03/15/2024 Irregular uterine contractions 03/15/2024 Chronic fatigue 04/05/2024 Herpes Resolved Ambulatory Problems Diagnosis Date Noted No Resolved Ambulatory Problems Past Medical History: Diagnosis Date Bipolar disorder (CMS/HCC) Depression (CMS/HCC) IBS (irritable bowel syndrome) Marijuana use Panic attack (CMS/HCC) PTSD (post-traumatic stress disorder) (CMS/[facility]) 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) Thyroid enlargement (CMS/HCC) [...] date: 07/18/2006 Quit date: 01/15/2021 Years since quittin.4 Smokeless tobacco: Not on file Substance Use [...] Exam Constitutional: Appearance: Normal appearance. She is well-developed. Genitourinary: Vulva normal. Cardiovascular: Rate and Rhythm: Normal rate and regular rhythm. Pulmonary: Effort: Pulmonary effort is normal. Breath sounds: Normal breath sounds. Abdominal: General: Bowel sounds are normal. There is no distension. Palpations: Abdomen is soft. Tenderness: There is no abdominal tenderness. There is no guarding or rebound. Musculoskeletal: General: No swelling. Normal range of motion. Right lower leg: No edema. Left lower leg: No edema. Neurological: Mental Status: She is alert and oriented to person, place, and time. Skin: General: Skin is warm and dry. Psychiatric: Mood and Affect: Mood normal. Behavior: Behavior normal. Vitals and nursing note reviewed. Exam conducted with a proof inspector present. Vitals: Estimated body mass index is 36.96 kg/m as calculated from the following: Height as of 01/25/23: 5' 5 . Weight as of this encounter: 222 lb 1.9 oz. BP: 128/76 Patient's last menstrual period was 09/26/2023. ASSESSMENT & PLAN ICD-10-CM 1. Anemia during in third trimester O99.013 iron polysaccharides (ProFe) 391.3 (180 Fe) MG capsule 2. Third trimester Z34.93 POCT urinalysis dipstick manually resulted Strep B DNA probe, amplification Strep B DNA probe, amplification 3. 36 weeks gestation of Z3A.36 POCT urinalysis dipstick manually resulted Patient is doing well but has complaints of being tired and having maternal discomfort due to . Patient verbalized frequent movement and was instructed to perform kick counts three times per day. labor precautions were given, LARC consent was signed/declined, and GBS was obtained. Cervical check was performed and patient is 1cm dilated. Discussed valtrex with pt and pt states she is going to start taking valtrex daily. Risks reviewed with pt regarding not taking Valtrex, harm to the baby including - pt voiced understanding. Orders Placed This Encounter Procedures Strep B DNA probe, amplification POCT urinalysis dipstick manually resulted Follow Up: Patient is to return to office in 1 week for routine OB appointment Documented by Elif Orellana LPN on behalf of: Scott Mae DO documented in this encounter [facility] History of Present illness Narrative 05-30-2024 MARLIN Pineda - 05/30/2024 2:30 PM EST Note Date & Type Note Facility 05-30-2024 History of Presen t illness Narrative Reason for Appointment: Patient ID: Debbi Prado is a 33 y.o. female who presents for Routine Visit Patient presents today for Return OB appointment. MEDICATIONS Current Outpatient Medications Medication Instructions magnesium 200 mg, Oral, Daily ondansetron (ZOFRAN) 4 mg, Oral, Every 6 hours PRN, Take 1 tablet by mouth every 6 hours as needed for nausea. ondansetron ODT (ZOFRAN-ODT) 4 mg, Oral, Every 6 hours PRN ondansetron ODT (ZOFRAN-ODT) 4 mg, Oral, Every 6 hours PRN valACYclovir (VALTREX) 500 mg, Oral, Daily ALLERGIES Allergies Allergen Reactions Azithromycin Hives and Itching Other Reaction(s): Unknown Reaction PROBLEMS Active Ambulatory Problems Diagnosis Date Noted Bipolar 1 disorder ([facility]) 01/20/2023 Anxiety with depression 01/20/2023 Fatty liver 01/20/2023 Generalized anxiety disorder ([facility]) 01/20/2023 Irregular menses 01/20/2023 Irritable bowel syndrome with diarrhea 01/20/2023 Mild chronic gastritis 01/20/2023 Grief at loss of child ([facility]) 10/06/2023 Persistent depressive disorder ([facility]) 10/06/2023 Syncope 03/15/2024 Low-lying placenta 03/15/2024 Dizziness 03/15/2024 Dehydration 03/15/2024 Migraine without status migrainosus, not intractable ([facility]) 03/15/2024 Irregular uterine contractions 03/15/2024 Chronic fatigue 04/05/2024 Herpes Resolved Ambulatory Problems Diagnosis Date Noted No Resolved Ambulatory Problems Past Medical History: Diagnosis Date Bipolar disorder ([facility]) Depression ([facility]) IBS (irritable bowel syndrome) Marijuana use Panic attack ([facility]) PTSD (post-traumatic stress disorder) ([facility]) 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) Thyroid enlargement ([facility]) HISTORY PAST MEDICAL HISTORY SOCIAL HISTORY Past Medical History: Diagnosis Date Bipolar disorder ([facility]) Depression ([facility]) Fatty liver Herpes IBS (irritable bowel syndrome) Irritable bowel syndrome with diarrhea Marijuana use Mild chronic gastritis Panic attack ([facility]) PTSD (post-traumatic stress disorder) ([facility]) 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) Thyroid enlargement ([facility]/HCC) Social History Tobacco Use Smoking status: Former [...] reviewed. Vitals: Estimated body mass index is 35.41 kg/m as calculated from the following: Height as of 01/25/23: 5' 5 . Weight as of this encounter: 212 lb 12.8 oz. BP: 116/74 Patient's last menstrual period was 09/26/2023. ASSESSMENT & PLAN ICD-10-CM 1. Third trimester Z34.93 2. 34 weeks gestation of Z3A.34 Return OB: Patient presents today for a routine obstetrics appointment. Patient is currently 34w3d . Patient states she is doing well but has complaints of being tired due to current . Patient has verbalizes frequent movement. labor precautions was discussed/given and patient was instructed to perform kick counts three times a day. Patient encouraged to start taking valtrex as prescribed. Discussed importance of health for her and baby No orders of the defined types were placed in this encounter. Follow Up: Patient is to return to office in 2 week for routine OB appointment. Documented by MARLIN Pineda on behalf of: MARLIN Pineda documented in this encounter [facility] History of Present illness Narrative 05-16-2024 [...] Problems Diagnosis Date Noted Bipolar 1 disorder ([facility]) 01/20/2023 Anxiety with depression 01/20/2023 Fatty liver 01/20/2023 Generalized anxiety disorder ([facility]) 01/20/2023 Irregular menses 01/20/2023 Irritable bowel syndrome with diarrhea 01/20/2023 Mild chronic gastritis 01/20/2023 Grief at loss of child ([facility]) 10/06/2023 Persistent depressive disorder ([facility]/HCC) 10/06/2023 Syncope 03/15/2024 Low-lying placenta 03/15/2024 Dizziness 03/15/2024 Dehydration 03/15/2024 Migraine without status migrainosus, not intractable ([facility]/HCC) 03/15/2024 Irregular uterine contractions 03/15/2024 Chronic fatigue [...] Problems Diagnosis Date Noted Bipolar 1 disorder ([facility]) 01/20/2023 Anxiety with depression 01/20/2023 Fatty liver 01/20/2023 Generalized anxiety disorder ([facility]/HCC) 01/20/2023 Irregular menses 01/20/2023 Irritable bowel syndrome with diarrhea 01/20/2023 Mild chronic gastritis 01/20/2023 Grief at loss of child ([facility]) 10/06/2023 Persistent depressive disorder ([facility]) 10/06/2023 Syncope 03/15/2024 Low-lying placenta 03/15/2024 Dizziness 03/15/2024 Dehydration 03/15/2024 Migraine without status migrainosus, not intractable ([facility]) 03/15/2024 Irregular uterine contractions 03/15/2024 Chronic fatigue 04/05/2024 Resolved Ambulatory Problems Diagnosis Date Noted No Resolved Ambulatory Problems Past Medical History: Diagnosis Date Bipolar disorder ([facility]/HCC) Depression ([facility]/HCC) Herpes IBS (irritable bowel syndrome) Marijuana use Panic attack ([facility]/HCC) PTSD (post-traumatic stress disorder) ([facility]) 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) Thyroid enlargement ([facility]) HISTORY PAST MEDICAL HISTORY SOCIAL HISTORY Past Medical History: Diagnosis Date Bipolar disorder ([facility]) Depression ([facility]/HCC) Fatty liver Herpes IBS (irritable bowel syndrome) [...] nursing note reviewed. Exam conducted with a proof inspector present. Vitals: Estimated body mass index is [...] of: MARLIN Pineda documented in this encounter [facility] Clinical Note 12-09-2022 Note Date & Type Note Facility 12-09-2022 Note OPERATIVE NOTE OPERATION DATE: 12/09/2022 PROCEDURE: Primary low transverse section. PREOPERATIVE DIAGNOSIS: 1. Intrauterine at 39 weeks. 2. 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 POSTOPERATIVE DIAGNOSIS: 1. Intrauterine at 39 weeks. 2. 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 ANESTHESIA: Spinal with Duramorph. SURGEON: Scott Mae D.O. [employer]: DANIELA Koch URINE OUTPUT: Yellow and clear. [...] Room in stable condition. [facility] Evaluation note Note Date & Type Note Facility Evaluation note Diagnosis Third trimester state, incidental 30 weeks gestation of Nausea and vomiting, unspecified vomiting type documented in this encounter [facility] Evaluation note Note Date & Type Note Facility Evaluation note Diagnosis Third trimester state, incidental 32 weeks gestation of induced hypertension, antepartum Transient hypertension of , antepartum Nonintractable headache, unspecified chronicity pattern, unspecified headache type Nausea and vomiting in Unspecified vomiting of , unspecified as to episode of care Exposure to STD documented in this encounter [facility] Evaluation note Note Date & Type Note Facility Evaluation note Diagnosis Third trimester state, incidental 34 weeks gestation of documented in this encounter [facility] Evaluation note Note Date & Type Note Facility Evaluation note Diagnosis Anemia during in third trimester Third trimester state, incidental 36 weeks gestation of documented in this encounter [facility] Summary [...] section and content) DATE CREATED AUTHOR 04/24/2020 [facility] DATE CREATED AUTHOR AUTHOR'S ORGANIZ ATION 05/26/2020 [facility] DATE CREATED AUTHOR AUTHOR'S ORGANIZ ATION 08/02/2021 [facility] DATE CREATED AUTHOR AUTHOR'S ORGANIZ ATION 12/24/2022 [facility] DATE CREATED AUTHOR AUTHOR'S ORGANIZ ATION 01/21/2024 [facility] DATE CREATED AUTHOR AUTHOR'S ORGANIZ ATION 06/01/2024 [facility] DATE CREATED AUTHOR AUTHOR'S ORGANIZ ATION 06/04/2024 [facility] Care Teams (unrecognized sec tion and content) Museum Tour Guide Relationship Specialty Start Date End Date Janice Dinero DO [address] [place] [address] PCP - General Family Medicine 12/20/22 [employer] Relationship Specialty Start Date End Date Janice Dinero DO [address] [place] [address] PCP - General Family Medicine 12/20/22 [employer] Tour Guide Relationship Specialty Start Date End Date Janice Dinero DO [address] [place] [address] PCP - General Family Medicine 12/20/22 [employer] Guide Relationship Specialty Start Date End Date YesicaJanice casas DO [address] [place] [address] PCP - General Family Medicine 12/20/22 [employer] Tour Guide Relationship Specialty Start Date End Date RumJanice casas, DO [address] [place] [address] PCP - General Family Medicine 12/20/22 [employer] Tour Guide Relationship Specialty Start Date End Date YesicaJanice casas, DO [address] [place] [address] PCP - General Family Medicine 12/20/22 [employer] Tour Guide Relationship Specialty Start Date End Date RumJanice casas, DO [address] [place] [address] PCP - General Family Medicine 12/20/22 [employer] Tour Guide Relationship Specialty Start Date End Date YesicaJanice casas, DO [address] [place] [address] PCP - General Family Medicine 12/20/22 [employer] Tour Guide Relationship Specialty Start Date End Date RumJanice casas, DO [address] [place] [address] PCP - General Family Medicine 12/20/22 Reason [...] BE BASED ON THE PRIMARY CLINICAL RECORDS. [facility]. provides no warranty or guarantee of the accuracy or completeness of information in this document.
== END 2024-06-13 18:54 | disposition home or self-care (01) ==
LOC: LAB 18:53
PROVIDERS: PCP Family Medicine; Visit Provider Obstetrics & Gynecology
DX: Z34.93 Encounter for supervision of normal pregnancy, unspecified, third trimester (principal)
CPT/HCPCS: 87081; 87150

== ENCOUNTER 2024-06-21 16:07 | Inpatient (IN) | payer BC, SELFPAY ==
[2024-06-21] VITALS (24 sets, daily range): BP systolic 74–131; BP diastolic 49–97; PULSE 102–110; TEMP 36.4–36.9; O2SAT 92–99
--- OUTSIDE RECORDS SUMMARY | 2024-06-21 16:24 | XMS_ITS | CCD ---
Author Organization [facility] Care Team Providers Care Supervisor Throwing Department Name Role Phone JUAN ., DR MARTIN [...] ZIEBER, DR FREDY Copeland Consulting Unavailable SERVICES, [facility] Unava ilable RALPH CISNEROS Attending Unavailable NANETTECHJOSE FAROOQ Attending Unavailable JOSE LEONARDO Referring Unavailable SERVICES, [facility] Unava ilable Janice Dinero DO Primary Care Provider ASHLEE TORRES Admitting Unavailable ASHLEE TORRES Attending Unavailable SERVICES, [facility] Unava ilable TU, SCOTT Attending Unavailable TU, SCOTT Attending Unavailable TU, SCOTT Attending Unavailable TU, SCOTT Attending Unavailable TU, SCOTT Attending Unavailable TU, SCOTT Attending Unavailable PUMA, YENI Attending Unavailable PUMA, YENI Attending Unavailable TU, SCOTT Attending Unavailable TU, SCOTT Attending Unavailable TU, SCOTT Attending Unavailable PUMA, YENI Attending Unavailable PUMA, YENI Attending Unavailable PUMA, YENI Attending Unavailable TU, SCOTT Attending Unavailable Allergies Allergy Classification Reported Allergen(s) Allergy Type Date of Onset Reaction(s) Facility Macrolides (antibiotic) (1 source) Azithromycin; Translations: [AZITHROMYCIN] Drug Allergy 7 [facility] Repository (1 source) Azithromycin Drug Allergy 4 [facility] Repository (19 sources) Azithromycin; Translations: [AZITHROMYCIN] Drug Allergy 7 Hives, Itching [facility] Work Phone: Medications Current Medications Medication Drug Class(es) Dates Sig (Normalized) Sig (Original) polysaccharide iron complex 391 mg oral capsule (8 sources) Start: 06-13-2024 End: 07-13-2024 take 1 [...] Date Documented Da te Episodic/Chronic Adjustment disorders (18 sources) Grief finding; Translations: [Adjustment disorder with depressed mood] Onset: 10-06-2023 10-06-2023 Chronic Anxiety disorders (20 sources) Mixed anxiety and depressive disorder; Translations: [Other specified anxiety disorders] Onset: 01-20-2023 08-08-2023 Chronic Diabetes mellitus without complication (1 source) Other abnormal glucose; Translations: [OTHER ABNORMAL GLUCOSE] Onset: 10-31-2022 Episodic Diabetes or abnormal glucose tolerance complicating ; childbirth; or the puerperium (4 sources) Abnormal glucose complicating ; Translations: [ABNORMAL GLUCOSE COMP ] Onset: 10-26-2022 Episodic E Codes: Fall (1 source) Fall Onset: 01-20-2024 Gastritis and duodenitis (18 sources) Chronic gastritis; Translations: [Unspecified chronic gastritis without bleeding] Onset: 01-20-2023 01-20-2023 Chronic Headache; including migraine (18 sources) Migraine; Translations: [Migraine, unspecified, not intractable, without status migrainosus] Onset: 03-15-2024 03-15-2024 Chronic Headache; including migraine (2 sources) Headache; Translations: [Nonintractable headache, unspecified chronicity pattern, unspecified headache type] 05-16-2024 Episodic Headache; including migraine (1 source) Headache; including migraine; Translations: [Headache, unspecified] Onset: 06-02-2024 Hypertension complicating ; childbirth and the puerperium (2 sources) -induced hypertension; Translations: [Gestational [-induced] hypertension without significant proteinuria, unspecified trimester] 05-16-2024 Episodic Immunizations and screening for infectious disease (3 sources) Encounter for screening for human papillomavirus (HPV); Translations: [Exposure to sexually transmissible disorder] Onset: 07-23-2022 05-16-2024 Episodic Malaise and fatigue (18 sources) Fatigue; Translations: [Chronic fatigue, unspecified] Onset: 04-05-2024 04-05-2024 Chronic Menstrual disorders (18 sources) Irregular periods; Translations: [Irregular menstruation, unspecified] [...] 01-20-2024 Episodic Other aftercare (1 source) 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; Translations: [OTH RETIREMENT CURRENT DRUG THERAPY] Onset: 12-14-2022 Episodic Other [...] DIARRHEA] Onset: 12-14-2022 Chronic Other gastrointestinal disorders (18 sources) Irritable bowel syndrome with diarrhea; Translations: [Irritable bowel syndrome with diarrhea] Onset: 01-20-2023 01-20-2023 Chronic Other liver diseases (1 source) Fatty (change of) liver, not elsewhere classified; Translations: [FATTY CHANGE LIVER NEC] Onset: 12-14-2022 Chronic Other liver diseases (18 sources) Steatosis of liver; Translations: [Fatty (change [...] mellitus] Onset: 07-20-2022 Episodic Residual codes; unclassified (2 sources) Insomnia; Translations: [Other insomnia] 06-20-2024 Chronic Residual codes; unclassified (1 source) 39 weeks [...] [36 weeks gestation of ] 06-13-2024 Episodic Residual codes; unclassified (4 sources) Gestation period, 37 weeks; Translations: [37 weeks gestation of ] Onset: 06-20-2024 06-20-2024 Episodic Screening and history of mental health and substance abuse codes (1 source) Personal history of nicotine dependence; Translations: [PERSONAL HISTORY OF NICOTINE DEPEND] Onset: 12-14-2022 Episodic Substance-related disorders (3 sources) Drug use complicating childbirth; Translations: [Cannabis use, unspecified, uncomplicated] Onset: 11-03-2022 Episodic Unclassified (1 source) EMS Onset: 01-20-2024 Unclassified (1 source) Decreased Movement Onset: 06-02-2024 Viral infection (10 sources) Herpesviral infection, unspecified; Translations: [Herpes simplex] Onset: 12-14-2022 05-30-2024 Episodic Past or Other Problems Problem Classification Problem Date Documented Da te Episodic/Chronic Conditions associated with dizziness or vertigo (18 sources) Dizziness; Translations: [Dizziness and giddiness] Onset: 03-15-2024 03-15-2024 Episodic Early or threatened labor (20 sources) False labor before 37 completed weeks of gestation, third trimester; Translations: [Irregular uterine contractions] Onset: 10-27-2022 Episodic Fluid and electrolyte disorders (18 sources) Dehydration; Translations: [Dehydration] Onset: 03-15-2024 03-15-2024 Episodic Hemorrhage during ; abruptio placenta; placenta previa (18 sources) Low lying placenta; Translations: [Low lying placenta NOS or without hemorrhage, unspecified trimester] Onset: 03-15-2024 03-15-2024 Episodic Other complications of (1 source) Mild hyperemesis gravidarum; Translations: [MILD HYPEREMESIS GRAVIDARUM] Onset: 06-20-2022 Episodic Residual codes; unclassified (1 source) 13 weeks gestation of ; Translations: [13 WEEKS GESTATION OF ] Onset: 06-20-2022 Episodic Syncope (19 sources) Syncope and collapse; Translations: [Syncope] Onset: 01-20-2024 03-15-2024 Episodic Results Test Name Value Interpretation Reference Range Facility Urinalysis macro (dipstick) panel (U)on 06-20-2024 Bilirubin, UA Negative Negative - 4(70) +++ mg/dL [facility] Blood, UA Negative Negative - 50 Nelson/mcL [facility] Clarity, UA Cloudy [facility] Color, UA Yellow [facility] Glucose, UA Negative Negative - 2000(110) ++++ mg/dL [facility] Interpretation and review of laboratory results Abnormal [facility] Ketones, UA Negative Negative - 160(16) ++++ mg/dL [facility] Leukocytes, UA Negative Negative - 500+++ Antonio/mcL [facility] Nitrite, UA Negative Negative - Positive [facility] pH, UA 7 5 - 9 [facility] Protein, UA Positive Negative - 2000(20) ++++ mg/dL [facility] Comment on above: 30mg Spec Grav, UA 1.02 1 - 1.03 [facility] Urobilinogen, UA 0.2 0.2 - 12 mg/dL [facility] Urinalysis macro (dipstick) panel (U)on 06-13-2024 Bilirubin, UA Negative Negative - 4(70) +++ mg/dL [facility] Blood, UA Negative Negative - 50 Nelson/mcL [facility] Clarity, UA Clear [facility] Color, UA Yellow [facility] Glucose, UA Negative Negative - 2000(110) ++++ mg/dL [facility] Interpretation and review of laboratory results Abnormal [facility] Ketones, UA Negative Negative - 160(16) ++++ mg/dL [facility] Leukocytes, UA Negative Negative - 500+++ Antonio/mcL [facility] Nitrite, UA Negative Negative - Positive [facility] pH, UA 6 5 - 9 [facility] Protein, UA Trace Negative - 2000(20) ++++ mg/dL [facility] Spec Grav, UA 1.025 1 - 1.03 [facility] Urobilinogen, UA 0.2 0.2 - 12 mg/dL Critical [facility] hospital URINALYSISon 06-02-2024 Bilirubin Ql (U) Negative Normal NEG [facility] Comment on above: Performed By: #### U A #### [facility] ([id number]) [address], [address] [place] [address] BLOOD/HGB Negative Normal NEG [facility] Comment on above: Performed By: #### U A #### [facility] ([id number]) [address], [address] [place] [address] Color (U) YELLOW Normal YELLOW [facility] Comment on above: Performed By: #### U A #### [facility] ([id number]) [address], [address] [place] [address] Glucose Ql (U) 150 mg/dL Abnormal NEG [facility] Comment on above: Performed By: #### U A #### [facility] ([id number]) [address], [address] [place] [address] Ketones Ql (U) Trace Abnormal NEG [facility] Comment on above: Performed By: #### U A #### [facility] ([id number]) [address], [address] [place] [address] Leukocyte esterase Test strip Ql (U) Negative Normal NEG [facility] Comment on above: Performed By: #### U A #### [facility] ([id number]) [address], [address] [place] [address] MUCOUS PRESENT Abnormal NONE [facility] Comment on above: Performed By: #### U A #### [facility] ([id number]) [address], [address] [place] [address] Nitrite Ql (U) Negative Normal NEG [facility] Comment on above: Performed By: #### U A #### [facility] ([id number]) [address], [address] [place] [address] pH (U) 6.0 [pH] Normal 5.0-8.5 [facility] Comment on above: Performed By: #### U A #### [facility] ([id number]) [address], [address] [place] [address] Protein Ql (U) 30 mg/dL Abnormal NEG [facility] Comment on above: Performed By: #### U A #### [facility] ([id number]) [address], [address] [place] [address] R.B.CELLS 1 /hpf Normal 0-5 [facility] Comment on above: Performed By: #### U A #### [facility] ([id number]) [address], [address] [place] [address] Specific gravity (U) [Rel density] 1.027 Normal 1.003-1.035 [facility] Comment on above: Performed By: #### U A #### [facility] ([id number]) [address] [place] [address] SQUAMOUS EPITHELIUM 2 /hpf Normal 0-5 [facility] Comment on above: Performed By: #### U A #### [facility] ([id number]) [address], [address] [address] TURBIDITY CLEAR Normal CLEAR [facility] Comment on above: Performed By: #### U A #### [facility] ([id number]) [address], [address] [address] Urobilinogen (U) [Mass/Vol] mg/dL Normal <1.1 [facility] Comment on above: Performed By: #### U A #### [facility] ([id number]) [address] [address] W.B.CELLS 3 /hpf Normal 0-5 [facility] Comment on above: Performed By: #### U A #### [facility] ([id number]) [address] [address] URINE CULTUREon 06-02-2024 Bacteria identified Cx Nom (U) CULTURE RESULTS <10,000 ORGANISMS/ML NORMAL URO GENITAL ALOK Normal [facility] Comment on above: Performed By: #### 6 30-4 #### [facility] ([id number]) [address] [address] VAGINITIS PANEL PCRon 2023 VAGINITIS PANEL PCR [...] clinical presentation to determine patient diagnosis. Normal [facility] Comment on above: Performed By: #### V PPCR #### [facility] ([id number]) [address], [address] [place] [address] TBH TOTAL PROTEIN 24 HOUR UR INEon 05-18-2024 Interpretation and review of laboratory results Abnormal [facility] Protein (U) [Mass/Vol] 20.7 mg/dL High NINF - 11.9 mg/dL [facility] TBH TOTAL PROTEIN 24 HOUR URINE 351.9 High [facility] TOTAL VOLUME 24 HOUR URINE 1700 mL/24hr [facility] ALL CBC WITH AUTO DIFFon BASOPHILS ABSOLUTE AUTO 0.1 [facility] Basophils/100 WBC (Bld) 0.4 % 0.2 - 2.0 % [facility] Eosinophils/100 WBC (Bld) 1 % 0.9 - 7.0 % [facility] Erythrocyte distribution width (RBC) [Ratio] 15 % 11.0 - 15.0 % [facility] Hematocrit (Bld) [Volume fraction] 30.1 % Low 36.0 - 48.0 % [facility] Hemoglobin (Bld) [Mass/Vol] 9.1 g/dL Low 12.0 - 16.0 g/dL [facility] IMMATURE GRANULOCYTES ABS AUTO 0.[address] [facility] Immature granulocytes/100 WBC (Bld) 3.2 % High 0.0 - 0.5 % [facility] Interpretation and review of laboratory results Abnormal [facility] LYMPHOCYTES ABSOLUTE AUTO 2.3 [facility] Lymphocytes/100 WBC (Bld) 17 % Low 20.5 - 60.0 % [facility] MCH (RBC) [Entitic mass] 24.5 pg Low 26.7 - 34.[address] [facility] MCHC (RBC) [Mass/Vol] 30.2 g/dL 29.9 - 35.2 g/dL [facility] MCV (RBC) [Entitic vol] 81.1 fL 81.0 - 99.[address] [facility] MONOCYTES ABSOLUTE AUTO 1.[address] [facility] Monocytes/100 WBC (Bld) 8.1 % 1.7 - 12.0 % [facility] NEUTROPHILS ABSOLUTE AUTO 9.[address] [facility] Neutrophils/100 WBC (Bld) 70.3 % 43.0 - 75.0 % [facility] Platelet mean volume (Bld) [Entitic vol] 9.8 fL 9.5 - 13.5 fL [facility] EO # 0.1 [facility] PLT 313 [facility] RBC 3.71 Low [facility] WBC 13.[address] [facility] Urinalysis macro (dipstick) panel (U)on 05-16-2024 Bilirubin, UA Positive Negative - 4(70) +++ mg/dL [facility] Comment on above: small Blood, UA Positive Negative - 50 Nelson/mcL [facility] Comment on above: blood Clarity, UA Clear [facility] Color, UA Leonila [facility] Glucose, UA Negative Negative - 1999(110) ++++ mg/dL [facility] Interpretation and review of laboratory results Abnormal [facility] Ketones, UA Positive Negative - 160(16) ++++ mg/dL [facility] Comment on above: trace Leukocytes, UA Negative Negative - 500+++ Antonio/mcL [facility] Nitrite, UA Negative Negative - Positive [facility] pH, UA 6 5 - 9 [facility] Protein, UA Positive Negative - 1999(20) ++++ mg/dL [facility] Comment on above: 30 mg Spec Grav, UA 1.025 1 - 1.03 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 BLOOD URINE Negative NEGATIVE [facility] Clarity (U) CLEAR CLEAR [facility] Color (U) LT YELLOW YELLOW [facility] GLUCOSE URINE UA 250 mg/dL Abnormal NEGATIVE [facility] Interpretation and review of laboratory results Abnormal [facility] Ketones Ql (U) Negative NEGATIVE mg/dL [facility] Leukocyte esterase Test strip Ql (U) Negative NEGATIVE [facility] NITRITE URINE Negative NEGATIVE [facility] pH (U) 6.5 [pH] 5.0 - 9.0 [facility] PROTEIN URINE Negative NEG/TRACE mg/dL [facility] SPECIFIC GRAVITY URINE 1.015 1.005 - 1.025 [facility] URINE MICROSCOPIC INDICATED NO [facility] UROBILINOGEN URINE 0.2 EU/dL 0.2 - 1.0 EU/dL [facility] Urinalysis macro (dipstick) panel (U)on 05-02-2024 Bilirubin, UA Negative Negative - 4(70) +++ mg/dL [facility] Blood, UA Negative Negative - 50 Nelson/mcL [facility] Clarity, UA Clear [facility] Color, UA Yellow [facility] Glucose, UA Negative Negative - 2000(110) ++++ mg/dL [facility] Interpretation and review of laboratory results Abnormal [facility] Ketones, UA Positive Negative - 160(16) ++++ mg/dL [facility] Leukocytes, UA Negative Negative - 500+++ Antonio/mcL [facility] Nitrite, UA Negative Negative - Positive [facility] pH, UA 6 5 - 9 [facility] Protein, UA Positive Negative - 2000(20) ++++ mg/dL [facility] Spec Grav, UA 1.025 1 - 1.03 [facility] Urobilinogen, UA 1.0 0.2 - 12 mg/dL [facility] CBC AND AUTO DIFFon 01-20-20 24 ABSOLUTE BASOPHIL 0.1 X10E9/L Normal 0.0-0.2 [facility] Comment on above: Performed By: #### C MELYSSA NICOLE, 05529-9 #### [facility] ([id number]) [address] [place] [address] ABSOLUTE NEUTROPHIL 8.1 X10E9/L High 1.5-6.6 [facility] Comment on above: Performed By: #### Melia NICOLE CMP, 85641-8 #### [facility] ([id number]) [address] [place] [address] Basophils/100 WBC (Bld) 0.5 % Normal [facility] Comment on above: Performed By: #### Melia NICOLE CMP, 55794-9 #### [facility] ([id number]) [address] [place] [address] Eosinophils (Bld) [#/Vol] 0.2 10*3/uL Normal 0.0-0.4 [facility] Comment on above: Performed By: #### C COREY [facility], 50490-0 #### [facility] ([id number]) [address] [place] [address] Eosinophils/100 WBC (Bld) 1.4 % Normal [facility] Comment on above: Performed By: #### Melia NICOLE [facility], 58166-8 #### [facility] ([id number]) [address] [place] [address] Erythrocyte distribution width (RBC) [Ratio] 14.4 % Normal 11.5-15.0 [facility] Comment on above: Performed By: #### Melia NICOLE [facility], 35684-6 #### [facility] ([id number]) [address] [place] [address] Hematocrit (Bld) [Volume fraction] 32.4 % Low 35-47 [facility] Comment on above: Performed By: #### Melia NICOLE [facility], 95805-9 #### [facility] ([id number]) [address] [place] [address] Hemoglobin (Bld) [Mass/Vol] 10.9 g/dL Low 11.7-15.5 [facility] Comment on above: Performed By: #### Melia NICOLE [facility], 03486-3 #### [facility] ([id number]) [address] [place] [address] Lymphocytes (Bld) [#/Vol] 2.0 10*3/uL Normal 1.0-3.5 [facility] Comment on above: Performed By: #### Melia NICOLE CMP, 97808-0 #### [facility] ([id number]) [address] [place] [address] Lymphocytes/100 WBC (Bld) 17.8 % Normal [facility] Comment on above: Performed By: #### Melia NICOLE CMP, 67938-9 #### [facility] ([id number]) [address] [place] [address] MCH (RBC) [Entitic mass] 28.4 pg Normal 27-34 [facility] Comment on above: Performed By: #### Melia NICOLE, CMP, 38666-7 #### [facility] ([id number]) [address] [place] [address] MCHC (RBC) [Mass/Vol] 33.5 g/dL Normal 32-36 [facility] Comment on above: Performed By: #### Melia NICOLE, CMP, 33070-8 #### [facility] ([id number]) [address] [place] [address] MCV (RBC) [Entitic vol] 85 fL Normal 80-100 [facility] Comment on above: Performed By: #### Mleia NICOLE, CMP, 43595-6 #### [facility] ([id number]) [address] [place] [address] Monocytes (Bld) [#/Vol] 0.8 10*3/uL Normal 0-0.9 [facility] Comment on above: Performed By: #### Melia NICOLE, CMP, 81773-1 #### [facility] ([id number]) [address] [place] [address] Monocytes/100 WBC (Bld) 7.1 % Normal [facility] Comment on above: Performed By: #### Melia BCA, CMP, 01273-8 #### [facility] ([id number]) [address] [place] [address] Neutrophils/100 WBC (Bld) 73.2 % Normal [facility] Comment on above: Performed By: #### Melia BCA, CMP, 02081-8 #### [facility] ([id number]) [address] [place] [address] Platelet mean volume (Bld) [Entitic vol] 7.5 fL Normal 7-12 [facility] Comment on above: Performed By: #### Melia NICOLE CMP, 61081-2 #### [facility] ([id number]) [address] [place] [address] Platelets (Bld) [#/Vol] 300 10*3/uL Normal 150-450 [facility] Comment on above: Performed By: #### Melia NICOLE CMP, 62813-6 #### [facility] ([id number]) [address] [place] [address] RBC COUNT 3.83 X10E12/L Normal 3.80-5.20 [facility] Comment on above: Performed By: #### Melia NICOLE CMP, 50752-8 #### [facility] ([id number]) [address] [place] [address] WBC (Bld) [#/Vol] 11.1 10*3/uL High 4.0-11.0 [facility] Comment on above: Performed By: #### Melia NICOLE, CMP, 00811-8 #### [facility] ([id number]) [address] [place] [address] COMPREHENSIVE METABOLIC PANE Yassine 01-20-2024 Albumin [Mass/Vol] 3.2 g/dL Normal 3.2-5.3 [facility] Comment on above: Performed By: #### Melia NICOLE, CMP, 93831-2 #### [facility] ([id number]) [address] [place] [address] ALP [Catalytic activity/Vol] 49 U/L Normal 39-130 [facility] Comment on above: Performed By: #### Melia NICOLE, CMP, 44128-1 #### [facility] ([id number]) [address] [place] [address] ALT [Catalytic activity/Vol] 16 U/L Normal 0-31 [facility] Comment on above: Performed By: #### C MELYSSA NICOLE, 13504-1 #### [facility] ([id number]) [address] [place] [address] 79968 Anion gap [Moles/Vol] 7 mmol/L Normal 5-15 [facility] Comment on above: Performed By: #### C MELYSSA NICOLE, 79832-5 #### [facility] ([id number]) [address] [place] [address] 39443 AST [Catalytic activity/Vol] 20 U/L Normal 0-41 [facility] [place] Comment on above: Performed By: #### Melia NICOLE CMP, 89199-5 #### [facility] ([id number]) [address] [place] [address] 51729 Bilirubin [Mass/Vol] 0.3 mg/dL Normal 0.3-1.2 [facility] Comment on above: Performed By: #### Melia NICOLE CMP, 87969-9 #### [facility] ([id number]) [address] [place] [address] 40328 Calcium [Mass/Vol] 8.6 mg/dL Normal 8.5-10.5 [facility] Comment on above: Performed By: #### Melia NICOLE CMP, 58000-6 #### [facility] ([id number]) [address] [place] [address] 15659 Chloride [Moles/Vol] 99 mmol/L Normal 98-109 [facility] Comment on above: Performed By: #### Melia NICOLE CMP, 27884-4 #### [facility] ([id number]) [address] [place] [address] 69528 CO2 [Moles/Vol] 22 mmol/L Normal 22-32 [facility] Comment on above: Performed By: #### C MELYSSA NICOLE, 16577-1 #### [facility] ([id number]) [address] [place] [address] 81839 Creatinine [Mass/Vol] 0.56 mg/dL Normal 0.40-1.00 [facility] Comment on above: Result Comment: METH OD TRACEABLE TO IDMS STANDARD Performed By: #### C MELYSSA NICOLE, 08569-9 #### [facility] ([id number]) [address] [place] [address] 96539 eGFR (CKD-EPI) NON-RACE DEPENDENT >90 Normal >59 [facility] Comment on above: Result Comment: Reported eGFR is based on the CKD-EPI 2020 equation that does not use a race coefficient. Performed By: #### C MELYSSA NICOLE, 22063-9 #### [facility] ([id number]) [address] [place] [address] 08441 Glucose [Mass/Vol] 102 mg/dL High 65-99 [facility] Comment on above: Performed By: #### C MELYSSA NICOLE, 53930-1 #### [facility] ([id number]) [address] [place] [address] 92573 Potassium [Moles/Vol] 3.7 mmol/L Normal 3.5-5.0 [facility] Comment on above: Performed By: #### C MELYSSA NICOLE, 14785-4 #### [facility] ([id number]) [address] [place] [address] 08902 Protein [Mass/Vol] 7.2 g/dL Normal 6.0-8.0 [facility] Comment on above: Performed By: #### C MELYSSA NICOLE, 21466-0 #### [facility] ([id number]) [address] [place] [address] 16109 Sodium [Moles/Vol] 128 mmol/L Low 134-146 [facility] Comment on above: Performed By: #### C COREY, [facility], 84025-1 #### [facility] ([id number]) [address] [place] [address] 75060 Urea nitrogen [Mass/Vol] 9 mg/dL Normal 5-23 [facility] Comment on above: Performed By: #### C COREY, [facility], 52947-7 #### [facility] ([id number]) [address] [place] [address] BRAIN WO CONTon CT BRAIN WO [...] Mckinley MD on 01/20/2024 2:56 PM Normal [facility] CT CERVICAL SPINE WO CONTon 01-20-2024 CT [...] Corrales MD on 01/20/2024 2:52 PM Normal [facility] Troponin I.cardiac High sens itivity method [Mass/Vol]on 01-20-2024 1 HOUR TROP I, HIGH SENSITIVITY <2 Normal <16 [facility] Comment on above: Performed By: #### 8 9579-7 #### [facility] ([id number]) [address] [place] [address], [place] [address] TROPONIN I, HIGH SENSITIVITY <2 Normal <16 [facility] Comment on above: Performed By: #### C BCA, CMP, 30560-9 #### [facility] ([id number]) [address] [place] [address], [place] [address] CANNABINOID (THC) CONFIRMATI ON, URINEon 12-15-2022 Cannabinoid Positive Abnormal [facility] Comment on above: Performed By: #### C BC #### [facility] Laboratory [address] [place] [address] Dr. Isi Forbes Carboxy THC GC/MS Conf >750 Normal Cutoff=10 [facility] Comment on above: Performed By: #### C BC #### [facility] Laboratory [address] [place] [address] Dr. Isi Forbes CBC AUTO DIFFon 12-10-2022 BASO # 0.0 103/ul Normal 0.0-0.1 [facility] Comment on above: Performed By: #### G TT3P #### [facility] Laboratory [address] [place] [address] Dr. Isi Forbes Basophils/100 WBC (Bld) 0.3 % Normal 0.2-2.0 [facility] Comment on above: Performed By: #### G TT3P #### [facility] Laboratory [address] [place] [address] Dr. sIi Forbes EO # 0.1 103/ul Normal 0.0-0.7 [facility] Comment on above: Performed By: #### G TT3P #### [facility] Laboratory [address] [place] [address] Dr. Isi Forbes Eosinophils/100 WBC (Bld) 0.5 % Critically low 0.9-7.0 [facility] Comment on above: Performed By: #### G TT3P #### [facility] Laboratory [address] [address] [address] Isi Forbes Erythrocyte distribution width (RBC) [Ratio] 13.8 % Normal 11.0-15.0 [facility] Comment on above: Performed By: #### G TT3P #### [facility] Laboratory [address] [place] [address] Dr. Isi Forbes Hematocrit (Bld) [Volume fraction] 24.1 % Critically low 36.0-48.0 [facility] Comment on above: Performed By: #### G TT3P #### [facility] Laboratory [address] [place] [address] Dr. Isi Forbes Hemoglobin (Bld) [Mass/Vol] 7.7 g/dL Critically low 12.0-16.0 [facility] Comment on above: Performed By: #### G TT3P #### [facility] Laboratory [address] [place] [address] Dr. Isi Forbes IG # 0.11 10e3/ul Critically high 0.00-0.03 [facility] Comment on above: Performed By: #### G TT3P #### [facility] Laboratory [address] [place] [address] Dr. Isi Forbes IG % 0.9 % Critically high 0.0-0.5 [facility] Comment on above: Performed By: #### G TT3P #### [facility] Laboratory [address] [place] [address] Dr. Isi Forbes LYMPH # 2.0 103/ul Normal 1.2-3.8 [facility] Comment on above: Performed By: #### G TT3P #### [facility] Laboratory [address] [place] [address] Dr. Isi Forbes Lymphocytes/100 WBC (Bld) 16.9 % Critically low 20.5-60.0 [facility] Comment on above: Performed By: #### G TT3P #### [facility] Laboratory [address] [place] [address] Dr. Isi Forbes MANUAL DIFF REQ NO Normal [facility] Comment on above: Performed By: #### G TT3P #### [facility] Laboratory [address] [address] [address] Isi Forbes MCH (RBC) [Entitic mass] 27.4 pg Normal 26.7-34.0 [facility] Comment on above: Performed By: #### G TT3P #### [facility] Laboratory [address] [place] [address] Dr. Isi Forbes MCHC (RBC) [Mass/Vol] 32.0 g/dL Normal 29.9-35.2 [facility] Comment on above: Performed By: #### G TT3P #### [facility] Laboratory [address] [place] [address] Dr. Isi Forbes MCV (RBC) [Entitic vol] 85.8 fL Normal 81.0-99.0 [facility] Comment on above: Performed By: #### G TT3P #### [facility] Laboratory [address] [place] [address] Dr. Isi Forbes MONO # 1.5 103/ul Critically high 0.3-0.8 [facility] Comment on above: Performed By: #### G TT3P #### [facility] Laboratory [address] [place] [address] Dr. Isi Forbes Monocytes/100 WBC (Bld) 12.2 % Critically high 1.7-12.0 [facility] Comment on above: Performed By: #### G TT3P #### [facility] Laboratory [address] [place] [address] Dr. Isi Forbes NEUT # 8.3 103/ul Critically high 1.4-6.5 [facility] Comment on above: Performed By: #### G TT3P #### [facility] Laboratory [address] [place] [address] Dr. Isi Forbes Neutrophils/100 WBC (Bld) 69.2 % Normal 43.0-75.0 [facility] Comment on above: Performed By: #### G TT3P #### [facility] Laboratory [address] [place] [address] Dr. Isi Forbes Platelet mean volume (Bld) [Entitic vol] 9.6 fL Normal 9.5-13.5 [facility] Comment on above: Performed By: #### G TT3P #### [facility] Laboratory [address] [place] [address] Dr. Isi Forbes PLT 205 103/ul Normal 150-450 [facility] Comment on above: Performed By: #### G TT3P #### [facility] Laboratory [address] [place] [address] Dr. Isi Forbes RBC 2.81 106/ul Critically low 4.20-5.40 [facility] Comment on above: Performed By: #### G TT3P #### [facility] Laboratory [address] [place] [address] Dr. Isi Forbes WBC 12.0 103/ul Critically high 4.0-11.0 [facility] Comment on above: Performed By: #### G TT3P #### [facility] Laboratory [address] [place] [address] Dr. Isi Forbes CBC AUTO DIFFon 12-09-2022 BASO # 0.1 103/ul Normal 0.0-0.1 [facility] Comment on above: Performed By: #### G TT3P #### [facility] Laboratory [address] [place] [address] Dr. Isi Forbes Basophils/100 WBC (Bld) 0.5 % Normal 0.2-2.0 [facility] Comment on above: Performed By: #### G TT3P #### [facility] Laboratory [address] [place] [address] Dr. Isi Forbes EO # 0.1 103/ul Normal 0.0-0.7 [facility] Comment on above: Performed By: #### G TT3P #### [facility] Laboratory [address] [place] [address] Dr. Isi Forbes Eosinophils/100 WBC (Bld) 0.4 % Critically low 0.9-7.0 [facility] Comment on above: Performed By: #### G TT3P #### [facility] Laboratory [address] [place] [address] Dr. Isi Forbes Erythrocyte distribution width (RBC) [Ratio] 13.7 % Normal 11.0-15.0 [facility] Comment on above: Performed By: #### G TT3P #### [facility] Laboratory [address] [place] [address] Dr. Isi Forbes Hematocrit (Bld) [Volume fraction] 31.9 % Critically low 36.0-48.0 [facility] Comment on above: Performed By: #### G TT3P #### [facility] Laboratory [address] [place] [address] Dr. Isi Forbes Hemoglobin (Bld) [Mass/Vol] 10.5 g/dL Critically low 12.0-16.0 [facility] Comment on above: Performed By: #### G TT3P #### [facility] Laboratory [address] [place] [address] Dr. Isi Forbes IG # 0.13 10e3/ul Critically high 0.00-0.03 [facility] Comment on above: Performed By: #### G TT3P #### [facility] Laboratory [address] [place] [address] Dr. Isi Forbes IG % 1.2 % Critically high 0.0-0.5 [facility] Comment on above: Performed By: #### G TT3P #### [facility] Laboratory [address] [place] [address] Dr. Isi Forbes LYMPH # 2.0 103/ul Normal 1.2-3.8 [facility] Comment on above: Performed By: #### G TT3P #### [facility] Laboratory [address] [place] [address] Dr. Isi Forbes Lymphocytes/100 WBC (Bld) 18.0 % Critically low 20.5-60.0 [facility] Comment on above: Performed By: #### G TT3P #### [facility] Laboratory [address] [place] [address] Dr. Isi Forbes MANUAL DIFF REQ NO Normal [facility] Comment on above: Performed By: #### G TT3P #### [facility] Laboratory [address] [place] [address] Dr. Isi Forbes MCH (RBC) [Entitic mass] 27.6 pg Normal 26.7-34.0 [facility] Comment on above: Performed By: #### G TT3P #### [facility] Laboratory [address] [place] [address] Dr. Isi Forbes MCHC (RBC) [Mass/Vol] 32.9 g/dL Normal 29.9-35.2 [facility] Comment on above: Performed By: #### G TT3P #### [facility] Laboratory [address] [place] [address] Dr. Isi Forbes MCV (RBC) [Entitic vol] 83.9 fL Normal 81.0-99.0 [facility] Comment on above: Performed By: #### G TT3P #### [facility] Laboratory [address] [place] [address] Dr. Isi Forbes MONO # 1.0 103/ul Critically high 0.3-0.8 [facility] Comment on above: Performed By: #### G TT3P #### [facility] Laboratory [address] [place] [address] Dr. Isi Forbes Monocytes/100 WBC (Bld) 8.9 % Normal 1.7-12.0 [facility] Comment on above: Performed By: #### G TT3P #### [facility] Laboratory [address] [place] [address] Dr. Isi Forbes NEUT # 7.9 103/ul Critically high 1.4-6.5 [facility] Comment on above: Performed By: #### G TT3P #### [facility] Laboratory [address] [place] [address] Dr. Isi Forbes Neutrophils/100 WBC (Bld) 71.0 % Normal 43.0-75.0 [facility] Comment on above: Performed By: #### G TT3P #### [facility] Laboratory [address] [place] [address] Dr. Isi Forbes Platelet mean volume (Bld) [Entitic vol] 10.0 fL Normal 9.5-13.5 [facility] Comment on above: Performed By: #### G TT3P #### [facility] Laboratory [address] [place] [address] Dr. Isi Forbes PLT 264 103/ul Normal 150-450 [facility] Comment on above: Performed By: #### G TT3P #### [facility] Laboratory [address] [place] [address] Dr. Isi Forbes RBC 3.80 106/ul Critically low 4.20-5.40 [facility] Comment on above: Performed By: #### G TT3P #### [facility] Laboratory [address] [place] [address] Dr. Isi Forbes WBC 11.1 103/ul Critically high 4.0-11.0 [facility] Comment on above: Performed By: #### G TT3P #### [facility] Laboratory [address] [place] [address] Dr. Isi Forbes DRUG SCREEN RAPID (URINE)on 12-09-2022 AMP Negative Normal NEGATIVE [facility] Comment on above: Performed By: #### G TT3P #### [facility] Laboratory [address] [place] [address] Dr. Isi Forbes BAR Negative Normal NEGATIVE [facility] Comment on above: Performed By: #### G TT3P #### [facility] Laboratory [address] [place] [address] Dr. Isi Forbes BUP Negative Normal NEGATIVE [facility] Comment on above: Performed By: #### G TT3P #### [facility] Laboratory [address] [place] [address] Dr. Isi Forbes BZO Negative Normal NEGATIVE [facility] Comment on above: Performed By: #### G TT3P #### [facility] Laboratory [address] [place] [address] Dr. Isi Forbes BEATA Negative Normal NEGATIVE [facility] Comment on above: Performed By: #### G TT3P #### [facility] Laboratory [address] [place] [address] Dr. Isi Forbes CUT-OFFS SEE BELOW Normal [facility] Comment on above: Result Comment: AMP [...] ng/mL Performed By: #### G TT3P #### [facility] Laboratory [address] [place] [address] Dr. Isi Forbes DRUG CUT HEADER DRUG CLASS TEST SYSTEM CUT-OFF CONCENTRATIONS ARE FOLLOWS: Normal [facility] Comment on above: Performed By: #### G TT3P #### [facility] Laboratory [address] [place] [address] Dr. Isi Forbes mAMP Negative Normal NEGATIVE [facility] Comment on above: Performed By: #### G TT3P #### [facility] Laboratory [address] [place] [address] Dr. Isi Forbes MTD Negative Normal NEGATIVE [facility] Comment on above: Performed By: #### G TT3P #### [facility] Laboratory [address] [place] [address] Dr. Isi Forbes OPI Negative Normal NEGATIVE [facility] Comment on above: Performed By: #### G TT3P #### [facility] Laboratory [address] [place] [address] Dr. Isi Forbes OXY Negative Normal NEGATIVE [facility] Comment on above: Performed By: #### G TT3P #### [facility] Laboratory [address] [place] [address] Dr. Isi Forbes PCP Negative Normal NEGATIVE [facility] Comment on above: Performed By: #### G TT3P #### [facility] Laboratory [address] [place] [address] Dr. Isi Forbes PPX Negative Normal NEGATIVE [facility] Comment on above: Performed By: #### G TT3P #### [facility] Laboratory [address] [place] [address] Dr. Isi Forbes TCA Negative Normal NEGATIVE [facility] Comment on above: Performed By: #### G TT3P #### [facility] Laboratory [address] [place] [address] Dr. Isi Forbes THC Positive Abnormal NEGATIVE [facility] Comment on above: Performed By: #### G TT3P #### [facility] Laboratory [address] [place] [address] Dr. Isi Forbes TYPE AND SCREENon 12-09-2022 TYPE AND SCREEN Negative Normal [facility] Comment on above: Performed By: #### R PRQ #### [facility] Laboratory [address] [place] [address] Dr. Isi Forbes UA (CLEAN/CATCH) RIVETING MACHINE OPERATOR/MICRO I F IND.on 12-09-2022 Bilirubin Ql (U) Negative Normal NEGATIVE [facility] Comment on above: Performed By: #### C BC #### [facility] Laboratory [address] [place] [address] Dr. Isi Forbes Clarity (U) CLEAR Normal CLEAR [facility] Comment on above: Performed By: #### C BC #### [facility] Laboratory [address] [place] [address] Dr. Isi Forbes Color (U) YELLOW Normal YELLOW [facility] Comment on above: Performed By: #### C BC #### [facility] Laboratory [address] [place] [address] Dr. Isi Forbes Glucose Ql (U) Negative Normal NEGATIVE [facility] Comment on above: Performed By: #### C BC #### [facility] Laboratory [address] [place] [address] Dr. Isi Forbes Hemoglobin Ql (U) Negative Normal NEGATIVE [facility] Comment on above: Performed By: #### C BC #### [facility] Laboratory [address] [place] [address] Dr. Isi Forbes Ketones Ql (U) TRACE Abnormal NEGATIVE [facility] Comment on above: Performed By: #### C BC #### [facility] Laboratory [address] [place] [address] Dr. Isi Forbes LEUKOCYTES Negative Normal NEGATIVE [facility] Comment on above: Performed By: #### C BC #### [facility] Laboratory [address] [place] [address] Dr. Isi Forbes Nitrite Ql (U) Negative Normal NEGATIVE [facility] Comment on above: Performed By: #### C BC #### [facility] Laboratory [address] [place] [address] Dr. Isi Forbes pH (U) 6.5 [pH] Normal 5-9 [facility] Comment on above: Performed By: #### C BC #### [facility] Laboratory [address] [place] [address] Dr. Isi Forbes SPEC GRAVITY 1.025 Normal 1.005-<=1.025 [facility] Comment on above: Performed By: #### C BC #### [facility] Laboratory [address] [place] [address] Dr. Isi Forbes UA PROTEIN TRACE Normal NEGATIVE/ TRACE [facility] Comment on above: Performed By: #### C BC #### [facility] Laboratory [address] [place] [address] Dr. Isi Forbes UR MICRO IND NOT INDICATED Normal [facility] Comment on above: Performed By: #### C BC #### [facility] Laboratory [address] [place] [address] Dr. Isi Forbes Urobilinogen Qn (U) 0.2 {Barb'U}/dL Normal 0.2 - 1. 0 [facility] Comment on above: Performed By: #### C BC #### [facility] Laboratory [address] [place] [address] Dr. Iis Forbes GROUP B STREP CULTUREon 11-15 S. agalactiae Ag Ql (Unsp spec) Culture Observations: NEGATIVE FOR GROUP B STREPTOCOCCUS. Normal [facility] [facility] [place] Comment on above: Performed By: #### R PRQ #### [facility] [place] Laboratory [address] [place] [address] Dr. Isi Forbes US PREG BIOPHY W [...] FREDY DICK Date: 2022-10-31 22:08 Normal The [facility] [place] US PREG GROWTHon 11-01-2022 US PREG GROWTH [...] FREDY DICK Date: 2022-10-31 22:07 Normal The [facility] [place] CBC AUTO DIFFon 10-28-2022 BASO # 0.0 103/ul Normal 0.0-0.1 [facility] [place] Comment on above: Performed By: #### G TT3P #### [facility] [place] [facility] [address] [place] [address] Dr. Isi Forbes Basophils/100 WBC (Bld) 0.1 % Critically low 0.2-2.0 The [facility] [place] Comment on above: Performed By: #### G TT3P #### [facility] [place] [facility] [address] [place] [address] Dr. Isi Forbes EO # 0.0 103/ul Normal 0.0-0.7 [facility] Comment on above: Performed By: #### G TT3P #### [facility] [place] [facility] [address] [address] [address] Isi Forbes Eosinophils/100 WBC (Bld) 0.1 % Critically low 0.9-7.0 [facility] Comment on above: Performed By: #### G TT3P #### [facility] [place] [facility] [address] [place] [address] Dr. Isi Forbes Erythrocyte distribution width (RBC) [Ratio] 12.7 % Normal 11.0-15.0 [facility] Comment on above: Performed By: #### G TT3P #### [facility] [place] [facility] [address] [place] [address] Dr. Isi Forbes Hematocrit (Bld) [Volume fraction] 29.1 % Critically low 36.0-48.0 [facility] Comment on above: Performed By: #### G TT3P #### [facility] [place] [facility] [address] [place] [address] Dr. Isi Forbes Hemoglobin (Bld) [Mass/Vol] 9.4 g/dL Critically low 12.0-16.0 [facility] Comment on above: Performed By: #### G TT3P #### [facility] [place] [facility] [address] [place] [address] Dr. Isi Forbes IG # 0.20 10e3/ul Critically high 0.00-0.03 [facility] Comment on above: Performed By: #### G TT3P #### [facility] [place] [facility] [address] [place] [address] Dr. Isi Forbes IG % 1.4 % Critically high 0.0-0.5 [facility] Comment on above: Performed By: #### G TT3P #### [facility] [place] [facility] [address] [place] [address] Dr. Isi Forbes LYMPH # 1.9 103/ul Normal 1.2-3.8 The [facility] [place] Comment on above: Performed By: #### G TT3P #### [facility] [place] [facility] [address] [place] [address] Dr. Isi Forbes Lymphocytes/100 WBC (Bld) 13.5 % Critically low 20.5-60.0 [facility] Comment on above: Performed By: #### G TT3P #### [facility] [place] [facility] [address] [place] [address] Dr. Isi Forbes MANUAL DIFF REQ NO Normal [facility] Comment on above: Performed By: #### G TT3P #### [facility] [place] [facility] [address] [place] [address] Dr. Isi Forbes MCH (RBC) [Entitic mass] 28.2 pg Normal 26.7-34.0 [facility] Comment on above: Performed By: #### G TT3P #### [facility] [place] [facility] [address] [place] [address] Dr. Isi Forbes MCHC (RBC) [Mass/Vol] 32.3 g/dL Normal 29.9-35.2 [facility] Comment on above: Performed By: #### G TT3P #### [facility] [place] [facility] [address] [place] [address] Dr. Isi Forbes MCV (RBC) [Entitic vol] 87.4 fL Normal 81.0-99.0 [facility] Comment on above: Performed By: #### G TT3P #### [facility] [place] [facility] [address] [place] [address] Dr. Isi Forbes MONO # 0.8 103/ul Normal 0.3-0.8 [facility] Comment on above: Performed By: #### G TT3P #### [facility] [place] [facility] [address] [place] [address] Dr. Isi Forbes Monocytes/100 WBC (Bld) 5.9 % Normal 1.7-12.0 [facility] Comment on above: Performed By: #### G TT3P #### [facility] [place] [facility] [address] [place] [address] Dr. Isi Forbes NEUT # 10.9 103/ul Critically high 1.4-6.5 [facility] Comment on above: Performed By: #### G TT3P #### [facility] [place] [facility] [address] [place] [address] Dr. Isi Forbes Neutrophils/100 WBC (Bld) 79.0 % Critically high 43.0-75.0 [facility] Comment on above: Performed By: #### G TT3P #### [facility] [place] [facility] [address] [place] [address] Dr. Isi Forbes Platelet mean volume (Bld) [Entitic vol] 9.3 fL Critically low 9.5-13.5 [facility] Comment on above: Performed By: #### G TT3P #### [facility] [place] [facility] [address] [place] [address] Dr. Isi Forbes PLT 265 103/ul Normal 150-450 [facility] [place] Comment on above: Performed By: #### G TT3P #### [facility] [place] [facility] [address] [place] [address] Dr. Isi Forbes RBC 3.33 106/ul Critically low 4.20-5.40 [facility] Comment on above: Performed By: #### G TT3P #### [facility] [place] [facility] [address] [place] [address] Dr. Isi Forbes WBC 13.8 103/ul Critically high 4.0-11.0 [facility] Comment on above: Performed By: #### G TT3P #### [facility] [place] [facility] [address] [place] [address] Dr. Isi Forbes CBC AUTO DIFFon 10-27-2022 BASO # 0.0 103/ul Normal 0.0-0.1 [facility] Comment on above: Performed By: #### C BC #### [facility] [place] [facility] [address] [place] [address] Dr. Isi Forbes Basophils/100 WBC (Bld) 0.2 % Normal 0.2-2.0 [facility] Comment on above: Performed By: #### C BC #### [facility] [place] [facility] [address] [place] [address] Dr. Isi Forbes EO # 0.0 103/ul Normal 0.0-0.7 [facility] Comment on above: Performed By: #### C BC #### [facility] [place] [facility] [address] [place] [address] Dr. Isi Forbes Eosinophils/100 WBC (Bld) 0.1 % Critically low 0.9-7.0 [facility] Comment on above: Performed By: #### C BC #### [facility] [place] [facility] [address] [address] [address] Isi Forbes Erythrocyte distribution width (RBC) [Ratio] 12.7 % Normal 11.0-15.0 [facility] Comment on above: Performed By: #### C BC #### [facility] [place] [facility] [address] [place] [address] Dr. Isi Forbes Hematocrit (Bld) [Volume fraction] 30.4 % Critically low 36.0-48.0 [facility] Comment on above: Performed By: #### C BC #### [facility] [place] [facility] [address] [place] [address] Dr. Isi Forbes Hemoglobin (Bld) [Mass/Vol] 10.4 g/dL Critically low 12.0-16.0 [facility] Comment on above: Performed By: #### C BC #### [facility] [place] [facility] [address] [place] [address] Dr. Isi Forbes IG # 0.19 10e3/ul Critically high 0.00-0.03 [facility] Comment on above: Performed By: #### C BC #### [facility] [place] [facility] [address] [place] [address] Dr. Isi Forbes IG % 1.2 % Critically high 0.0-0.5 [facility] Comment on above: Performed By: #### C BC #### [facility] [place] [facility] [address] [place] [address] Dr. Isi Forbes LYMPH # 1.1 103/ul Critically low 1.2-3.8 [facility] Comment on above: Performed By: #### C BC #### [facility] [place] [facility] [address] [place] [address] Dr. Isi Forbes Lymphocytes/100 WBC (Bld) 6.7 % Critically low 20.5-60.0 [facility] Comment on above: Performed By: #### C BC #### [facility] [place] [facility] [address] [place] [address] Dr. Isi Forbes MANUAL DIFF REQ NO Normal [facility] Comment on above: Performed By: #### C BC #### [facility] [place] [facility] [address] [place] [address] Dr. Isi Forbes MCH (RBC) [Entitic mass] 29.5 pg Normal 26.7-34.0 [facility] [place] Comment on above: Performed By: #### C BC #### [facility] [place] [facility] [address] [place] [address] Dr. Isi Forbes MCHC (RBC) [Mass/Vol] 34.2 g/dL Normal 29.9-35.2 [facility] [place] Comment on above: Performed By: #### C BC #### [facility] [place] [facility] [address] [place] [address] Dr. Isi Forbes MCV (RBC) [Entitic vol] 86.1 fL Normal 81.0-99.0 [facility] Comment on above: Performed By: #### C BC #### [facility] [place] [facility] [address] [place] [address] Dr. Isi Forbes MONO # 0.3 103/ul Normal 0.3-0.8 [facility] Comment on above: Performed By: #### C BC #### [facility] [place] [facility] [address] [place] [address] Dr. Isi Forbes Monocytes/100 WBC (Bld) 1.7 % Normal 1.7-12.0 [facility] Comment on above: Performed By: #### C BC #### [facility] [place] [facility] [address] [place] [address] Dr. Isi Forbes NEUT # 14.1 103/ul Critically high 1.4-6.5 [facility] Comment on above: Performed By: #### C BC #### [facility] [place] [facility] [address] [place] [address] Dr. Isi Forbes Neutrophils/100 WBC (Bld) 90.1 % Critically high 43.0-75.0 [facility] [place] Comment on above: Performed By: #### C BC #### [facility] [place] [facility] [address] [place] [address] Dr. Isi Forbes Platelet mean volume (Bld) [Entitic vol] 8.9 fL Critically low 9.5-13.5 [facility] [place] Comment on above: Performed By: #### C BC #### [facility] [place] [facility] [address] [place] [address] Dr. Isi Forbes PLT 276 103/ul Normal 150-450 [facility] Comment on above: Performed By: #### C BC #### [facility] [place] [facility] [address] [place] [address] Dr. Isi Forbes RBC 3.53 106/ul Critically low 4.20-5.40 [facility] Comment on above: Performed By: #### C BC #### [facility] [place] [facility] [address] [place] [address] Dr. Isi Forbes WBC 15.6 103/ul Critically high 4.0-11.0 [facility] Comment on above: Performed By: #### C BC #### [facility] [place] [facility] [address] [place] [address] Dr. Isi Forbes UA (CLEAN/CATCH) RIVETING MACHINE OPERATOR/MICRO I F IND.on 10-27-2022 Bilirubin Ql (U) Negative Normal NEGATIVE [facility] Comment on above: Performed By: #### C BC #### [facility] [place] [facility] [address] [place] [address] Dr. Isi Forbes Clarity (U) CLEAR Normal CLEAR [facility] Comment on above: Performed By: #### C BC #### [facility] [place] [facility] [address] [place] [address] Dr. Isi Forbes Color (U) LT. YELLOW Normal YELLOW [facility] Comment on above: Performed By: #### C BC #### [facility] [place] [facility] [address] [place] [address] Dr. Isi Forbes Glucose Ql (U) Negative Normal NEGATIVE [facility] Comment on above: Performed By: #### C BC #### [facility] [place] [facility] [address] [place] [address] Dr. Isi Forbes Hemoglobin Ql (U) Negative Normal NEGATIVE [facility] Comment on above: Performed By: #### C BC #### [facility] [place] [facility] [address] [place] [address] Dr. Isi Forbes Ketones Ql (U) Negative Normal NEGATIVE [facility] Comment on above: Performed By: #### C BC #### [facility] [place] [facility] [address] [place] [address] Dr. Isi Forbes LEUKOCYTES Negative Normal NEGATIVE [facility] Comment on above: Performed By: #### C BC #### [facility] [place] [facility] [address] [place] [address] Dr. Isi Forbes Nitrite Ql (U) Negative Normal NEGATIVE [facility] Comment on above: Performed By: #### C BC #### [facility] [place] [facility] [address] [place] [address] Dr. Isi Forbes pH (U) 6.0 [pH] Normal 5-9 [facility] Comment on above: Performed By: #### C BC #### [facility] [place] [facility] [address] [place] [address] Dr. Isi Forbes SPEC GRAVITY 1.010 Normal 1.005-<=1.025 [facility] Comment on above: Performed By: #### C BC #### [facility] [place] [facility] [address] [place] [address] Dr. Isi Forbes UA PROTEIN Negative Normal NEGATIVE/ TRACE [facility] [place] Comment on above: Performed By: #### C BC #### [facility] [place] [facility] [address] [place] [address] Dr. Isi Forbes UR MICRO IND NOT INDICATED Normal [facility] Comment on above: Performed By: #### C BC #### [facility] [place] [facility] [address] [place] [address] Dr. Isi Forbes Urobilinogen Qn (U) 0.2 {Barb'U}/dL Normal 0.2 - 1. 0 [facility] Comment on above: Performed By: #### C BC #### [facility] [place] Laboratory [address] [place] [address] Dr. Isi Forbes US PREG CERVICAL LENGTHon [...] FREDY DICK Date: 2022-10-27 16:05 Normal [facility] [place] GTT 3 HR PREGon 10-26-2022 Glucose [Mass/Vol] 99 mg/dL Normal 74-106 [facility] Comment on above: Performed By: #### G TT3P #### [facility] [place] [facility] [address] [address] [address] Isi Forbes Glucose [Mass/Vol] 172 mg/dL Normal [facility] Comment on above: Performed By: #### G TT3P #### [facility] [place] [facility] [address] [address] [address] Isi Forbes Glucose [Mass/Vol] 147 mg/dL Normal [facility] Comment on above: Performed By: #### G TT3P #### [facility] [place] [facility] [address] [address] [address] Isi Forbes Glucose [Mass/Vol] 125 mg/dL Normal [facility] Comment on above: Performed By: #### G TT3P #### [facility] [place] [facility] [address] [address] [address] Isi Forbes GLYCOHEMOGLOBIN A1Con 2022 ADA RECOMMENDATION SEE BELOW Normal [facility] Comment on above: Result Comment: ADA RECOMMENDED LIMIT 4.0 - 6.0 ADA THERAPEUTIC TARGET < 7.0 ACTION SUGGESTED > 7.0 Performed By: #### A 1C #### [facility] [place] [facility] [address] [address] [address] Isi Forbes Glucose [Mass/Vol] 114 mg/dL Normal [facility] Comment on above: Performed By: #### A 1C #### [facility] [place] [facility] [address] [address] [address] Isi Forbes HbA1c (Bld) [Mass fraction] 5.6 % Normal 4.5-6.2 [facility] Comment on above: Performed By: #### A 1C #### [facility] [place] Laboratory [address] [place] [address] Dr. Isi Forbes UA RANDOMon 10-25-2022 Bilirubin Ql (U) Negative Normal NEGATIVE [facility] Comment on above: Performed By: #### R PRQ #### [facility] [place] [facility] [address] [place] [address] Dr. Isi Forbes Clarity (U) CLEAR Normal CLEAR [facility] Comment on above: Performed By: #### R PRQ #### [facility] [place] [facility] [address] [address] [address] Isi Forbes Color (U) LT. YELLOW Normal YELLOW [facility] Comment on above: Performed By: #### R PRQ #### [facility] [place] [facility] [address] [place] [address] Dr. Isi Forbes Glucose Ql (U) Negative Normal NEGATIVE [facility] Comment on above: Performed By: #### R PRQ #### [facility] [place] [facility] [address] [place] [address] Dr. Isi Forbes Hemoglobin Ql (U) Negative Normal NEGATIVE [facility] Comment on above: Performed By: #### R PRQ #### [facility] [place] [facility] [address] [place] [address] Dr. Isi Forbes Ketones Ql (U) Negative Normal NEGATIVE [facility] Comment on above: Performed By: #### R PRQ #### [facility] [place] [facility] [address] [place] [address] Dr. Isi Forbes LEUKOCYTES Negative Normal NEGATIVE [facility] Comment on above: Performed By: #### R PRQ #### [facility] [place] [facility] [address] [place] [address] Dr. Isi Forbes Nitrite Ql (U) Negative Normal NEGATIVE [facility] Comment on above: Performed By: #### R PRQ #### [facility] [place] [facility] [address] [place] [address] Dr. Isi Forbes pH (U) 7.5 [pH] Normal 5-9 [facility] [place] Comment on above: Performed By: #### R PRQ #### [facility] [place] [facility] [address] [place] [address] Dr. Isi Forbes SPEC GRAVITY 1.020 Normal 1.005-<=1.025 [facility] Comment on above: Performed By: #### R PRQ #### [facility] [place] [facility] [address] [place] [address] Dr. Isi Forbes UA PROTEIN Negative Normal NEGATIVE/ TRACE [facility] [place] Comment on above: Performed By: #### R PRQ #### [facility] [place] [facility] [address] [place] [address] Dr. Isi Forbes Urobilinogen Qn (U) 0.2 {Barb'U}/dL Normal 0.2 - 1. 0 [facility] Comment on above: Performed By: #### R PRQ #### [facility] [place] [facility] [address] [place] [address] Dr. Isi Forbes GLUCOSE - 1HRon 09-27-2022 Glucose [Mass/Vol] 166 mg/dL Critically high 74-[address] [facility] Comment on above: Performed By: #### C BC #### [facility] [place] [facility] [address] [place] [address] Dr. Isi Forbes HEMOGRAM AND PLATELon 2022 Hematocrit (Bld) [Volume fraction] 30.9 % Critically low 36.0-48.0 [facility] Comment on above: Performed By: #### C BC #### [facility] [place] [facility] [address] [place] [address] Dr. Isi Forbes Hemoglobin (Bld) [Mass/Vol] 10.4 g/dL Critically low 12.0-16.0 [facility] Comment on above: Performed By: #### C BC #### [facility] [place] [facility] [address] [place] [address] Dr. Isi Forbes MCH (RBC) [Entitic mass] 29.9 pg Normal 26.7-34.0 [facility] Comment on above: Performed By: #### C BC #### [facility] [place] [facility] [address] [place] [address] Dr. Isi Forbes MCHC (RBC) [Mass/Vol] 33.7 g/dL Normal 29.9-35.2 [facility] Comment on above: Performed By: #### C BC #### [facility] [place] [facility] [address], [place] [address] Dr. Isi Forbes MCV (RBC) [Entitic vol] 88.8 fL Normal 81.0-99.0 [facility] Comment on above: Performed By: #### C BC #### [facility] [place] [facility] [address], [place] [address] Dr. Isi Forbes PLT 300 103/ul Normal 150-450 [facility] [place] Comment on above: Performed By: #### C BC #### [facility] [place] [facility] [address] [address] [address] Isi Forbes RBC 3.48 106/ul Critically low 4.20-5.40 [facility] Comment on above: Performed By: #### C BC #### [facility] [place] [facility] [address] [address] [address] Isi Forbes WBC 10.1 103/ul Normal 4.0-11.0 [facility] [place] Comment on above: Performed By: #### C BC #### [facility] [place] [facility] [address] [address] [address] Isi Forbes US PREG ANATOMY SINGLEon [...] by: ASHLEE STOVER Date: 2022-08-04 16:06 Normal [facility] PAP ACOG PANEL 2: 28 to 63on 07-25-2022 . . Normal [facility] Comment on above: Result Comment: Perf ormed at: [facility] Performed By: #### G TT3P #### [facility] [place] [facility] [address] [place] [address] Dr. Isi Forbes Age Gdln ACOG Testing [facility] Comment on above: Performed By: #### G TT3P #### [facility] [place] [facility] [address] [address] [address] Isi Forbes DIAGNOSIS: Comment Normal [facility] Comment on above: Result Comment: NEGA TIVE FOR INTRAEPITHELIAL LESION OR MALIGNANCY. Performed at: [facility] Performed By: #### G TT3P #### [facility] [place] [facility] [address] [place] [address] Dr. Isi Forbes HPV Aptima Negative Normal Negative [facility] Comment on above: Result Comment: This nucleic acid amplification test detects fourteen high-risk HPV types (16,18,31,33,35,39,45,51,52,56,58,59,66,68) without differentiation. Performed at: =G Performed By: #### G TT3P #### [facility] [address] [place] [address] [address] Isi Forbes HPV Genotype Reflex Comment Normal [facility] Comment on above: Result Comment: Crit eria not met, HPV Genotype not performed. Performed at: [facility] Performed By: #### G TT3P #### [facility] [address] [place] [address] Dr. Isi Frobes Methodology: Comment Normal [facility] Comment on above: Result Comment: This liquid based ThinPrep(R) pap test was screened with the use of an image guided system. Performed at: WB Performed By: #### G TT3P #### [facility] [address] [place] [address] Dr. Isi Forbes Note: Comment Normal [facility] Comment on above: Result Comment: The [...] WB Performed By: #### G TT3P #### [facility] [address] [place] [address] Dr. Isi Forbes Performed by: Comment Normal [facility] Comment on above: Result Comment: Mikki Good, Quality Technician [employer] (ASCP) Performed at: [facility] Performed By: #### G TT3P #### [facility] [address] [place] [address] Dr. Isi Forbes Specimen adequacy: Comment Normal [facility] Comment on above: Result Comment: Sati sfactory for evaluation. Endocervical and/or squamous metaplastic cells (endocervical component) are present. Performed at: [facility] Performed By: #### G TT3P #### [facility] [address] [place] [address] Dr. Isi Forbes CHLAMYDIA/GONOCOCCUS SARA (SW AB/URINE/PAPon 07-23-2022 Chlamydia trachomatis, SARA Negative Normal Negative [facility] Comment on above: Performed By: #### C BC #### [facility] [address] [place] [address] Dr. Isi Forbes Neisseria gonorrhoeae, SARA Negative Normal Negative [facility] Comment on above: Performed By: #### C BC #### [facility] [address] [place] [address] Dr. Isi Forbes CBC AUTO DIFFon 06-16-2022 BASO # 0.1 103/ul Normal 0.0-0.1 [facility] Comment on above: Performed By: #### G TT3P #### [facility] [address] [place] [address] Dr. Isi Forbes Basophils/100 WBC (Bld) 0.5 % Normal 0.2-2.0 [facility] Comment on above: Performed By: #### G TT3P #### [facility] [address] [place] [address] [address] Isi Forbes EO # 0.1 103/ul Normal 0.0-0.7 [facility] Comment on above: Performed By: #### G TT3P #### [facility] [address] [place] [address] Dr. Isi Forbes Eosinophils/100 WBC (Bld) 1.2 % Normal 0.9-7.0 [facility] Comment on above: Performed By: #### G TT3P #### [facility] [address] [place] [address] Dr. Isi Forbes Erythrocyte distribution width (RBC) [Ratio] 12.7 % Normal 11.0-15.0 [facility] Comment on above: Performed By: #### G TT3P #### [facility] [address] [place] [address] Dr. Isi Forbes Hematocrit (Bld) [Volume fraction] 33.0 % Critically low 36.0-48.0 [facility] Comment on above: Performed By: #### G TT3P #### [facility] [address] [place] [address] Dr. Isi Forbes Hemoglobin (Bld) [Mass/Vol] 11.3 g/dL Critically low 12.0-16.0 [facility] Comment on above: Performed By: #### G TT3P #### [facility] [address] [place] [address] Dr. Isi Forbes IG # 0.06 10e3/ul Critically high 0.00-0.03 [facility] Comment on above: Performed By: #### G TT3P #### [facility] [address] [place] [address] Dr. Isi Forbes IG % 0.6 % Critically high 0.0-0.5 [facility] Comment on above: Performed By: #### G TT3P #### [facility] [address] [place] [address] Dr. Isi Forbes LYMPH # 2.0 103/ul Normal 1.2-3.8 [facility] Comment on above: Performed By: #### G TT3P #### [facility] [address] [place] [address] Dr. Isi Forbes Lymphocytes/100 WBC (Bld) 20.0 % Critically low 20.5-60.0 [facility] Comment on above: Performed By: #### G TT3P #### [facility] [address] [place] [address] Dr. Isi Forbes MANUAL DIFF REQ NO Normal [facility] Comment on above: Performed By: #### G TT3P #### [facility] [address] [place] [address] Dr. Isi Forbes MCH (RBC) [Entitic mass] 31.1 pg Normal 26.7-34.0 [facility] Comment on above: Performed By: #### G TT3P #### [facility] [address] [place] [address] Dr. Isi Forbes MCHC (RBC) [Mass/Vol] 34.2 g/dL Normal 29.9-35.2 [facility] Comment on above: Performed By: #### G TT3P #### [facility] [address] [place] [address] Dr. Isi Forbes MCV (RBC) [Entitic vol] 90.9 fL Normal 81.0-99.0 [facility] Comment on above: Performed By: #### G TT3P #### [facility] [address] [place] [address] Dr. Isi Forbes MONO # 0.6 103/ul Normal 0.3-0.8 [facility] Comment on above: Performed By: #### G TT3P #### [facility] [address] [place] [address] Dr. Isi Forbes Monocytes/100 WBC (Bld) 6.0 % Normal 1.7-12.0 [facility] Comment on above: Performed By: #### G TT3P #### [facility] [address] [place] [address] Dr. Isi Forbes NEUT # 7.2 103/ul Critically high 1.4-6.5 [facility] Comment on above: Performed By: #### G TT3P #### [facility] [address] [place] [address] Dr. Isi Forbes Neutrophils/100 WBC (Bld) 71.7 % Normal 43.0-75.0 [facility] Comment on above: Performed By: #### G TT3P #### [facility] [address] [place] [address] Dr. Isi Forbes Platelet mean volume (Bld) [Entitic vol] 9.5 fL Normal 9.5-13.5 [facility] Comment on above: Performed By: #### G TT3P #### [facility] [address] [place] [address] Dr. Isi Forbes PLT 244 103/ul Normal 150-450 [facility] Comment on above: Performed By: #### G TT3P #### [facility] [address] [place] [address] Dr. Isi Forbes RBC 3.63 106/ul Critically low 4.20-5.40 [facility] Comment on above: Performed By: #### G TT3P #### [facility] [address] [place] [address] Dr. Isi Forbes WBC 10.0 103/ul Normal 4.0-11.0 [facility] Comment on above: Performed By: #### G TT3P #### [facility] [address] [place] [address] Dr. Isi Forbes ER URINE PROFILEon 2 Bilirubin Ql (U) Negative Normal NEGATIVE [facility] Comment on above: Performed By: #### G TT3P #### [facility] [address] [place] [address] Dr. Isi Forbes Clarity (U) CLEAR Normal CLEAR [facility] Comment on above: Performed By: #### G TT3P #### [facility] [address] [place] [address] Dr. Isi Forbes Color (U) LT. YELLOW Normal YELLOW [facility] Comment on above: Performed By: #### G TT3P #### [facility] [address] [place] [address] Dr. Isi Forbes ERUAHD A micrscopic examination will be performed if indicated. Normal [facility] Comment on above: Performed By: #### G TT3P #### [facility] [address] [place] [address] Dr. Isi Forbes Glucose Ql (U) Negative Normal NEGATIVE [facility] Comment on above: Performed By: #### G TT3P #### [facility] [address] [place] [address] Dr. Isi Forbes Hemoglobin Ql (U) Negative Normal NEGATIVE [facility] Comment on above: Performed By: #### G TT3P #### [facility] [address] [place] [address] Dr. Isi Forbes Ketones Ql (U) Negative Normal NEGATIVE [facility] Comment on above: Performed By: #### G TT3P #### [facility] [address] [place] [address] Dr. Isi Forbes LEUKOCYTES TRACE Abnormal NEGATIVE The [facility] Comment on above: Performed By: #### G TT3P #### [facility] [address] [place] [address] Dr. Isi Forbes Nitrite Ql (U) Negative Normal NEGATIVE [facility] Comment on above: Performed By: #### G TT3P #### [facility] [address] [place] [address] Dr. Isi Forbes pH (U) 7.0 [pH] Normal 5-9 [facility] Comment on above: Performed By: #### G TT3P #### [facility] [address] [place] [address] Dr. Isi Forbes SPEC GRAVITY 1.020 Normal 1.005-<=1.025 [facility] Comment on above: Performed By: #### G TT3P #### [facility] [address] [place] [address] [address] Isi Forbse UA PROTEIN Negative Normal NEGATIVE/ TRACE [facility] Comment on above: Performed By: #### G TT3P #### [facility] [address] [place] [address] [address] Isi Forbes UR MICRO IND INDICATED Normal [facility] Comment on above: Performed By: #### G TT3P #### [facility] [address] [place] [address] Dr. Isi Forbes Urobilinogen Qn (U) 0.2 {Barb'U}/dL Normal 0.2 - 1. 0 [facility] Comment on above: Performed By: #### G TT3P #### [facility] [address] [place] [address] Dr. Isi Forbes PROF CHEM 8 (BAS METB)on Anion gap [Moles/Vol] 11.8 mmol/L Normal [facility] Comment on above: Performed By: #### G TT3P #### [facility] [address] [place] [address] Dr. Isi Forbes Calcium [Mass/Vol] 8.8 mg/dL Normal 8.5-10.1 [facility] Comment on above: Performed By: #### G TT3P #### [facility] [address] [place] [address] Dr. Isi Forbes Chloride [Moles/Vol] 102 mmol/L Normal 98-107 [facility] Comment on above: Performed By: #### G TT3P #### [facility] [address] [place] [address] [address] Isi Forbes CO2 [Moles/Vol] 26.9 mmol/L Normal 21.0-32.0 [facility] Comment on above: Performed By: #### G TT3P #### [facility] [address] [place] [address] Dr. Isi Forbes Creatinine [Mass/Vol] 0.42 mg/dL Critically low 0.55-1.02 [facility] Comment on above: Performed By: #### G TT3P #### [facility] [address] [place] [address] [address] Isi Forbes EGFR-AF IVORIAN >60 Normal >=60 [facility] Comment on above: Performed By: #### G TT3P #### [facility] [address] [place] [address] [address] sIi Forbes EGFR-NON AF IVORIAN >60 Normal >=60 [facility] Comment on above: Performed By: #### G TT3P #### [facility] [address] [place] [address] [address] Isi Forbes Glucose [Mass/Vol] 86 mg/dL Normal 74-106 [facility] Comment on above: Performed By: #### G TT3P #### [facility] [address] [place] [address] [address] Isi Forbes Potassium [Moles/Vol] 3.7 mmol/L Normal 3.5-5.1 [facility] Comment on above: Performed By: #### G TT3P #### [facility] [address] [place] [address] [address] Isi Forbes Sodium [Moles/Vol] 137 mmol/L Normal 136-145 [facility] Comment on above: Performed By: #### G TT3P #### [facility] [address] [place] [address] [address] Isi Forbes Urea nitrogen [Mass/Vol] 9.0 mg/dL Normal 7.0-18.0 [facility] Comment on above: Performed By: #### G TT3P #### [facility] [address] [place] [address] [address] Isi Forbes Urea nitrogen/Creatinine [Mass ratio] 21.4 mg/mg Normal [facility] Comment on above: Performed By: #### G TT3P #### [facility] [address] [place] [address] [address] Isi Forbes URINE MICROSCOPIC ONLYon BACTERIA TRACE Abnormal NONE SEEN The [facility] Comment on above: Performed By: #### C BC #### [facility] [address] [place] [address] Dr. Isi Forbes Bacteria identified Cx Nom (U) NOT INDICATED Normal [facility] Comment on above: Performed By: #### C BC #### [facility] [address] [place] [address] Dr. Isi Forbes CAST NONE SEEN Normal NONE SEEN The [facility] Comment on above: Performed By: #### C BC #### [facility] [address] [place] [address] Dr. Isi Forbes Crystals LM Nom (Urine sed) NONE SEEN Normal NONE SEEN The [facility] Comment on above: Performed By: #### C BC #### [facility] [address] [place] [address] Dr. Isi Forbes Epithelial cells LM Ql (Urine sed) MODERATE Abnormal NONE SEEN /RARE The [facility] Comment on above: Performed By: #### C BC #### [facility] [address] [place] [address] Dr. Isi Forbes MUCOUS NONE SEEN Normal NONE SEEN The [facility] Comment on above: Performed By: #### C BC #### [facility] [address] [place] [address] Dr. Isi Forbes RBC NONE SEEN Abnormal 0-2 The [facility] Comment on above: Performed By: #### C BC #### [facility] [address] [place] [address] Dr. Isi Forbes WBC 2-5 Abnormal NONE SEEN The [facility] Comment on above: Performed By: #### C BC #### [facility] [address] [place] [address] Dr. Isi Forbes HEP B SURFACE ANTIGEN SCREEN on 06-05-2022 HBsAg Screen Negative Normal Negative The [facility] Comment on above: Performed By: #### H BSANS #### [facility] [address] [place] [address] Dr. Isi Forbes HEPATITIS C VIRUS AB W/ REFL EX QUANTon 06-05-2022 HCV AB 0.1 s/co ratio Normal 0.0-0.9 [facility] Comment on above: Performed By: #### G TT3P #### [facility] [address] [place] [address] Dr. Isi Forbes Interpretation: Comment Normal [facility] Comment on above: Result Comment: Nega tive Not infected with HCV, unless recent infection is suspected or other evidence exists to indicate HCV infection. Performed By: #### G TT3P #### [facility] [address] [place] [address] Dr. Isi Forbes HIV 1 AND 2 WITH REFLEXon HIV Screen 4th Generation wRfx Non-Reactive Normal Non Reactive The [facility] Comment on above: Result Comment: HIV Negative HIV-1/HIV-2 antibodies and HIV-1 p24 antigen were NOT detected. There is no laboratory evidence of HIV infection. Performed By: #### C BC #### [facility] [address] [place] [address] Dr. Iis Forbes RPR QUANTon 06-05-2022 Rapid Plasma Reagin, Quant Non-Reactive Normal NonRea<1:1 [facility] Comment on above: Result Comment: Plea se Note: This test does not meet current guidelines for screening and diagnosis of syphilis. This test is intended for following treatment response in patients being treated for syphilis infection. To screen for syphilis infection, a reflex cascade that includes both RPR and a treponema-specific assay should be utilized, such as Treponema pallidum (Syphilis) Screening Lamar (810146) or Rapid Plasma Reagin (RPR) Test With Reflex to Quantitative RPR and Confirmatory Treponema pallidum Antibodies (061408). Performed By: #### R PRQ #### [facility] [address] [place] [address] Dr. Isi Forbes RUBELLA AB IGGon 06-05-2022 Rubella Antibodies, IgG 6.87 index Normal Immune >0.99 [facility] Comment on above: Result Comment: Non- immune <0.90 Equivocal 0.90 - 0.99 Immune >0.99 Performed By: #### R PRQ #### [facility] [address] [place] [address] Dr. Isi Forbes CBC AUTO DIFFon 06-04-2022 BASO # 0.0 103/ul Normal 0.0-0.1 [facility] Comment on above: Performed By: #### C BC #### [facility] [address] [place] [address] [address] Isi Forbes Basophils/100 WBC (Bld) 0.5 % Normal 0.2-2.0 [facility] Comment on above: Performed By: #### C BC #### [facility] [address] [place] [address] [address] Isi Forbes EO # 0.1 103/ul Normal 0.0-0.7 [facility] Comment on above: Performed By: #### C BC #### [facility] [address] [place] [address] [address] Isi Forbes Eosinophils/100 WBC (Bld) 1.5 % Normal 0.9-7.0 [facility] Comment on above: Performed By: #### C BC #### [facility] [address] [place] [address] Dr. Isi Forbes Erythrocyte distribution width (RBC) [Ratio] 12.1 % Normal 11.0-15.0 [facility] Comment on above: Performed By: #### C BC #### [facility] [address] [place] [address] Dr. Isi Forbes Hematocrit (Bld) [Volume fraction] 35.3 % Critically low 36.0-48.0 [facility] Comment on above: Performed By: #### C BC #### [facility] [address] [place] [address] Dr. Isi Forbes Hemoglobin (Bld) [Mass/Vol] 12.2 g/dL Normal 12.0-16.0 [facility] Comment on above: Performed By: #### C BC #### [facility] [address] [place] [address] Dr. Isi Forbes IG # 0.03 10e3/ul Normal 0.00-0.03 [facility] Comment on above: Performed By: #### C BC #### [facility] [address] [place] [address] Dr. Isi Forbes IG % 0.3 % Normal 0.0-0.5 [facility] Comment on above: Performed By: #### C BC #### [facility] [address] [place] [address] Dr. Isi Forbes LYMPH # 1.7 103/ul Normal 1.2-3.8 [facility] Comment on above: Performed By: #### C BC #### [facility] [address] [place] [address] Dr. Isi Forbes Lymphocytes/100 WBC (Bld) 20.1 % Critically low 20.5-60.0 [facility] Comment on above: Performed By: #### C BC #### [facility] [address] [place] [address] Dr. Isi Forbes MANUAL DIFF REQ NO Normal [facility] Comment on above: Performed By: #### C BC #### [facility] [address] [place] [address] Dr. Isi Forbes MCH (RBC) [Entitic mass] 30.7 pg Normal 26.7-34.0 [facility] Comment on above: Performed By: #### C BC #### [facility] [address] [place] [address] Dr. Isi Forbes MCHC (RBC) [Mass/Vol] 34.6 g/dL Normal 29.9-35.2 [facility] Comment on above: Performed By: #### C BC #### [facility] [address] [place] [address] Dr. Isi Forbes MCV (RBC) [Entitic vol] 88.9 fL Normal 81.0-99.0 [facility] Comment on above: Performed By: #### C BC #### [facility] Laboratory [address] [place] [address] Dr. Isi Forbes MONO # 0.5 103/ul Normal 0.3-0.8 [facility] Comment on above: Performed By: #### C BC #### [facility] [address] [place] [address] Dr. Isi Forbes Monocytes/100 WBC (Bld) 5.4 % Normal 1.7-12.0 [facility] Comment on above: Performed By: #### C BC #### [facility] Laboratory [address] [address] [address] Isi Forbes NEUT # 6.2 103/ul Normal 1.4-6.5 [facility] Comment on above: Performed By: #### C BC #### [facility] [address] [place] [address] Dr. Isi Forbes Neutrophils/100 WBC (Bld) 72.2 % Normal 43.0-75.0 [facility] Comment on above: Performed By: #### C BC #### [facility] [address] [place] [address] Dr. Isi Forbes Platelet mean volume (Bld) [Entitic vol] 9.4 fL Critically low 9.5-13.5 [facility] Comment on above: Performed By: #### C BC #### [facility] [address] [place] [address] Dr. Isi Forbes PLT 257 103/ul Normal 150-450 [facility] Comment on above: Performed By: #### C BC #### [facility] [address] [place] [address] Dr. Isi Forbes RBC 3.97 106/ul Critically low 4.20-5.40 [facility] Comment on above: Performed By: #### C BC #### [facility] [address] [place] [address] Dr. Isi Forbes WBC 8.6 103/ul Normal 4.0-11.0 [facility] Comment on above: Performed By: #### C BC #### [facility] [address] [place] [address] Dr. Isi Forbes CULTURE URINEon 06-04-2022 CULTURE URINE Culture Observations : LIGHT GROWTH OF MIXED GENITAL ALOK. NO POTENTIAL PATHOGENS SEEN. Normal [facility] Comment on above: Performed By: #### U RCX #### [facility] [address] [place] [address] Dr. Isi Forbes DRUG SCREEN RAPID (URINE)on 06-04-2022 AMP Negative Normal NEGATIVE [facility] Comment on above: Performed By: #### G TT3P #### [facility] [address] [place] [address] Dr. Isi Forbes BAR Negative Normal NEGATIVE [facility] Comment on above: Performed By: #### G TT3P #### [facility] [address] [place] [address] Dr. Isi Forbes BUP Negative Normal NEGATIVE [facility] Comment on above: Performed By: #### G TT3P #### [facility] [address] [place] [address] Dr. Isi Forbes BZO Negative Normal NEGATIVE [facility] Comment on above: Performed By: #### G TT3P #### [facility] [address] [place] [address] Dr. Isi Forbes BEATA Negative Normal NEGATIVE [facility] Comment on above: Performed By: #### G TT3P #### [facility] [address] [place] [address] Dr. Isi Forbes CUT-OFFS SEE BELOW Normal [facility] Comment on above: Result Comment: AMP [...] ng/mL Performed By: #### G TT3P #### [facility] [address] [place] [address] Dr. Isi Forbes DRUG CUT HEADER DRUG CLASS TEST SYSTEM CUT-OFF CONCENTRATIONS ARE FOLLOWS: Normal [facility] Comment on above: Performed By: #### G TT3P #### [facility] [address] [place] [address] Dr. Isi Forbes mAMP Negative Normal NEGATIVE [facility] Comment on above: Performed By: #### G TT3P #### [facility] [address] [place] [address] Dr. Isi Forbes MTD Negative Normal NEGATIVE [facility] Comment on above: Performed By: #### G TT3P #### [facility] [address] [place] [address] Dr. Isi Forbes OPI Negative Normal NEGATIVE [facility] Comment on above: Performed By: #### G TT3P #### [facility] [address] [place] [address] Dr. Isi Forbes OXY Negative Normal NEGATIVE [facility] Comment on above: Performed By: #### G TT3P #### [facility] [address] [address] [address] Isi Forbes PCP Negative Normal NEGATIVE [facility] Comment on above: Performed By: #### G TT3P #### [facility] [address] [place] [address] Dr. Isi Forbes PPX Negative Normal NEGATIVE [facility] Comment on above: Performed By: #### G TT3P #### [facility] [address] [place] [address] Dr. Isi Forbes TCA Negative Normal NEGATIVE [facility] Comment on above: Performed By: #### G TT3P #### [facility] [address] [place] [address] Dr. Isi Forbes THC Positive Abnormal NEGATIVE [facility] Comment on above: Performed By: #### G TT3P #### [facility] [address] [place] [address] Dr. Isi Forbes GLYCOHEMOGLOBIN A1Con 2021 ADA RECOMMENDATION SEE BELOW Normal [facility] Comment on above: Result Comment: ADA RECOMMENDED LIMIT 4.0 - 6.0 ADA THERAPEUTIC TARGET < 7.0 ACTION SUGGESTED > 7.0 Performed By: #### A 1C #### [facility] [address] [place] [address] Dr. Isi Forbes Glucose [Mass/Vol] 111 mg/dL Normal [facility] Comment on above: Performed By: #### A 1C #### [facility] [address] [place] [address] Dr. Isi Forbes HbA1c (Bld) [Mass fraction] 5.5 % Normal 4.5-6.2 [facility] Comment on above: Performed By: #### A 1C #### [facility] [address] [place] [address] Dr. Isi Forbes AUTUMN BOX TEST PT SEND OUTo n 06-04-2022 SENT TO REF LAB 06/04/2022 Normal [facility] Comment on above: Performed By: #### R PRQ #### [facility] [address] [place] [address] Dr. Isi Forbes TYPE AND SCREENon 06-04-2022 TYPE AND SCREEN Negative Normal [facility] Comment on above: Performed By: #### T NS #### [facility] [address] [place] [address] Dr. Isi Forbes US PREG TVon 05-18-2022 [...] FREDY DICK Date: 2022-05-18 05:51 Normal [facility] HCG,Urineon 11-04-2020 Beta HCG ( test) Ql (U) Negative Normal [facility] Comment on above: Result Comment: PERF ORMED BY: [facility] [address] [place] [address] PATHOLOGIST RADIOLOGY TEACHER MIKE LECHUGA M.D. Performed By: #### U HCG #### [facility] [address] [place] [address] [place] Yassine 11-04-2020 L - -------- Specimen: Received: 11/04/20 Status: PRASAD Nick Num: [id number] Spec Type: Surgical Subm Dr: Esequiel Lyles MD Tissues: A Duodenum - Biopsy (DUODENAL BX) Procedures: HE Stain/2, Gross/Micro L4 -------- Patient Age/Sex Location Account Attending Physician -------- Debbi Prado/F [id number] Esequiel Lyles MD -------- SPEC NUM: RECD: 11/04/20 STATUS: PRASAD NICK NUM: [id number] LADAN: 11/04/[address] [facility] [address]: Esequiel Lyles MD ENTERED: 11/04/202 [facility] DR: SPEC TYPE: Surgical DEPT: S ORDERED: [...] support the above pathologic diagnosis. -------- Specimen: [id number] Received: 11/04/20 Status: PRASAD Nick Num: [id number] Spec Type: Surgical Subm Dr: Esequiel Lyles MD Tissues: A Duodenum - Biopsy (DUODENAL BX) Procedures: HE Stain/2, Gross/Micro L4 -------- Patient: Debbi Prado [id number] (Continued) -------- Specimen: Received: 11/04/20 (Continued) Signed (signature on file) Rhys Mckenzie MD 11/05/20 1050 -------- Specimen: Received: 11/04/20 Status: PRASAD Nick Num: [id number] Spec Type: Surgical Subm Dr: Esequiel Lyles MD Tissues: A Duodenum - Biopsy (DUODENAL BX) Procedures: PAULINO Stain/2, Gross/Micro L4 -------- Patient: Debbi Prado [id number] (Continued) -------- Specimen: Received: 11/04/20 (Continued) CPT Codes 48838 -------- -------- Specimen: Received: 11/04/20 Status: PRASAD Sandoval Num: [id number] Spec Type: Surgical Subm Dr: Esequiel Lyles MD Tissues: A Duodenum - Biopsy (DUODENAL BX) Procedures: HE Stain/2, Gross/Micro L4 -------- Patient: Debbi Prado [id number] (Continued) -------- Signed (signature on file) Rhys Mckenzie MD 11/05/20 1050 Normal [facility] SARS-CoV-2 (COVID-19) RNA SARA+probe Ql (Unsp spec) Negative Normal Negative [facility] Comment on above: Order Comment: Dona hcare Worker?: N Result Comment: Refe rence: Negative Testing for SARS-CoV-2 by RT-PCR This test was developed and its performance characteristics determined by [employer] ([employer]) and validated at the [facility]. This test has not been FDA [...] is terminated or revoked sooner. PERFORMED BY: [place] [address] PATHOLOGIST RADIOLOGY TEACHER MIKE LECHUGA M.D. Performed By: #### C OVID-19 [facility] #### [address] Coding Summaryon 05-26-2020 Coding Summary CODING DATE: 05/26/2020 [facility] STATUS: Home PAYOR: [employer] ADMIT DX: [...] Ashleigh Posada Date Saved: 05/26/2020 08:27 am [facility] Consent Formson 05-26-2020 Consent Forms [id number] .00[facility] Provider [place] 05-26-2020 Provider Orders [id number] .00OTGTIFF Normal [facility] 2019 Novel Coronavirus (CoVI D-19), SARA LCon 05-24-2020 SARS-CoV-2, SARA (COVID-19) LC Not Detected Not Detected [facility] Comment on above: Order Comment: [id number] [phone] Result Comment: This nucleic acid amplification test was developed and its performance characteristics determined by [employer]. Nucleic acid amplification tests include PCR [...] detected) result in this assay. Performed At: [facility] [address] [place] [address] [place] [id number] Rere Bejarano MD Ph:[phone] Performed By: #### 6 [id number] ####[facility] (DEFAULT)[address] [place] [address] Progress Note - Nurseon 0 Progress Note - Nurse Nasal swab perform ed without complication. Patient tolerated well. Education given. Patient verbalized understanding. [Electronically Signed on: 05/22/2020 11:25 EST] Genesis Ndiaye RN [Verified on: 05/22/2020 11:25 EST] Genesis Ndiaye RN [facility] Ambulatory Clinical Summaryo n 04-11-2020 Ambulatory Clinical Summary {[id number] [facility] Coding Summaryon 02-21-2020 Coding Summary CODING DATE: 02/21/2020 [facility] STATUS: Home PAYOR: [employer] ADMIT DX: [...] Ashleigh Posada Date Saved: 02/21/2020 02:14 pm [facility] Consent Formson 02-18-2020 Consent Forms [id number] .00OT[facility]IFF [facility] 2019 Novel Coronavirus (CoVI D-19), SRAA LCon 02-16-2020 SARS-CoV-2, SARA (COVID-19) LC Not Detected Not Detected [facility] Comment on above: Result Comment: This test was developed and its performance characteristics determined by [employer]. This test has not been FDA [...] detected) result in this assay. Performed At: [facility] [address] [facility] [place] [id number] Rere Bejarano MD Ph:[phone] Performed By: #### 6 [id number] ####[facility] (DEFAULT)[address] [place] [address] Provider [place] 02-15-2020 Provider Orders [id number] .00[facility]IFF [facility] Provider [place] 02-14-2020 Provider Orders [id number] [facility], Quant.on 02-13-2020 IgA [Mass/Vol] 202 mg/dL 87-352 [facility] Comment on above: Result Comment: Perf ormed at: [id number] [place], [place] [id number] PhD Dennis Toussaint Performed By: #### 2 883651, 0232880, 62885330, 4545912, 12216795, 23929365, [id number] ####[facility] [address] [place] [address] t-TRANSGLUTAMINASE IgAon tTG IgA Qn (S) <2 0-3 [facility] Comment on above: Result Comment: Nega tive 0 - 3 Weak Positive 4 - 10 Positive >10 Tissue Transglutaminase (tTG) has been identified as the endomysial antigen. Studies have demonstr- ated that endomysial IgA antibodies have over 99% specificity for gluten sensitive enteropathy. Performed at: [facility] [address] [place], [place] [id number] PhD Dennis Toussaint Performed By: #### 2 010437, 7242647, 75769357, 1922736, 12284417, 61916337, 80696181 #### [facility] [address] [place] [address] Coding Summary.on 02-12-2020 Coding Summary. CODING DATE: 02/12/2020 FINAL [facility] STATUS: Home (Routine DC) PAYOR: Commercial [...] Saved: 02/12/2020 09:01 am Normal [facility] Auto Diffon 02-11-2020 Basophils/100 WBC (Bld) 0.5 % Normal 0.0-2.[address] [facility] Comment on above: Order Comment: Order Added by Discern Expert. Performed By: #### 2 092141, 5628780, 20467292, 4610749, 90259978, 16196431, 93156404 #### [facility] [address] [place] [address] Basophils/Leukocytes Auto (Bld) [Pure # fraction] 0.0 E9/L Normal 0.0-0.[address] [facility] Comment on above: Order Comment: Order Added by Discern Expert. Performed By: #### 2 097792, 9329562, 84734150, 6777616, 09921549, 31795436, 15090981 #### [facility] [address] [place] [address] Eosinophils/100 WBC (Bld) 1.7 % Normal 0.0-8.[address] [facility] Comment on above: Order Comment: Order Added by Discern Expert. Performed By: #### 2 332347, 4789915, 55423372, 9207227, 86018716, 24724145, 21547273 #### [facility] [address] [place] [address] Eosinophils/Leukocyte s Auto (Bld) [Pure # fraction] 0.2 E9/L Normal 0.0-0.[address] [facility] Comment on above: Order Comment: Order Added by Discern Expert. Performed By: #### 2 178094, 2807960, 99639683, 2452468, 09029349, 25748695, 08851545 #### [facility] [address] [place] [address] Lymphocytes/100 WBC (Bld) 21.9 % Normal 14.0-50.[address] [facility] Comment on above: Order Comment: Order Added by Lila Expert. Performed By: #### 2 163589, 7010857, 60109294, 8476395, 68254658, 34769973, 97302098 #### [facility] [address] [place] [address] Lymphocytes/Leukocyte s Auto (Bld) [Pure # fraction] 2.0 E9/L Normal 1.0-4.[address] [facility] Comment on above: Order Comment: Order Added by Discern Expert. Performed By: #### 2 768334, 2093989, 55420233, 3161868, 82638078, 56241218, 14067411 #### [facility] [address] [place] [address] Monocytes/100 WBC (Bld) 7.6 % Normal 4.0-14.[address] [facility] Comment on above: Order Comment: Order Added by Discern Expert. Performed By: #### 2 212430, 0681551, 85388196, 3010253, 44580860, 10684869, 00559017 #### [facility] [address] [place] [address] Monocytes/Leukocytes Auto (Bld) [Pure # fraction] 0.7 E9/L Normal 0.2-1.[address] [facility] Comment on above: Order Comment: Order Added by Lila Expert. Performed By: #### 2 649955, 2459859, 33408088, 3939393, 99580072, 88041579, 11569831 #### [facility] [address] [place] [address] Neutrophils/100 WBC (Bld) 68.3 % Normal 36.0-75.[address] [facility] Comment on above: Order Comment: Order Added by Discern Expert. Performed By: #### 2 435893, 6372739, 43435597, 8981113, 58190570, 33759233, 87743649 #### [facility] [address] [place] [address] Neutrophils/Leukocyte s Auto (Bld) [Pure # fraction] 6.2 E9/L Normal 2.0-7.[address] [facility] Comment on above: Order Comment: Order Added by Discern Expert. Performed By: #### 2 629643, 4377785, 77603154, 5883811, 64612551, 94682196, 13956022 #### [facility] [address] [place] [address] CBC w/ Auto Diffon 0 Erythrocyte distribution width (RBC) [Ratio] 13.1 % Normal 10.9-14.[address] [facility] Comment on above: Performed By: #### 2 824507, 9612490, 39887426, 6583997, 27592361, 17529241, 49381947 #### [facility] [address] [place] [address] Hematocrit (Bld) [Volume fraction] 41.8 % Normal 34.0-46.[address] [facility] Comment on above: Performed By: #### 2 128642, 1751110, 33885673, 9542809, 28522067, 58588375, 84532843 #### [facility] [address] [place] [address] Hemoglobin (Bld) [Mass/Vol] 13.9 g/dL Normal 12.0-16.[address] [facility] Comment on above: Performed By: #### 2 947249, 2771905, 69588441, 2495266, 45611166, 01844929, 41546557 #### [facility] [address] [place] [address] MCH (RBC) [Entitic mass] 30.7 pg Normal 27.0-34.[address] [facility] Comment on above: Performed By: #### 2 462872, 6417962, 56097011, 8989778, 95356166, 36354849, 05671232 #### [facility] [address] [place], [place] [address] MCHC (RBC) [Mass/Vol] 33.4 g/dL Normal 31.4-36.0 [facility] Comment on above: Performed By: #### 2 655308, 2069677, 59884064, 6658468, 28082996, 47173221, 63883463 #### [facility] [address] [place], [place] [address] MCV (RBC) [Entitic vol] 92.1 fL Normal 80.0-100.[address] [facility] Comment on above: Performed By: #### 2 504684, 8409274, 98121862, 7013021, 80543406, 54672032, 60490762 #### [facility] [address] [place], [place] [address] Platelet mean volume (Bld) [Entitic vol] 7.7 fL Normal 6.4-10.[address] [facility] Comment on above: Performed By: #### 2 863270, 9288600, 95013866, 4040947, 66325614, 90548182, 49942974 #### [facility] [address] [place] [address] Platelets (Bld) [#/Vol] 338.0 E9/L Normal 150.0-500.[address] [facility] Comment on above: Performed By: #### 2 296029, 8330580, 28701993, 2890979, 77715818, 84412547, 50674091 #### [facility] [address] [place] [address] RBC (Bld) [#/Vol] 4.5 E12/L Normal 4.3-5.[address] [facility] Comment on above: Performed By: #### 2 660906, 8797036, 96408954, 5542679, 52868305, 64348116, 54321939 #### [facility] [address] [address] WBC corrected for nucl RBC Auto (Bld) [#/Vol] 9.1 E9/L Normal 4.0-11.[address] [facility] Comment on above: Performed By: #### 2 145475, 8805672, 27569872, 4060605, 33281574, 93623545, 84504747 #### [facility] [address] [place] [address] CMPon 02-11-2020 Albumin [Mass/Vol] 1.4 g/dL Normal 1.1-2.[address] [facility] Comment on above: Performed By: #### 2 184772, 9447601, 66571914, 0054394, 87119016, 72416585, 50508255 #### [facility] [address] [place] [address] Albumin [Mass/Vol] 4.5 g/dL Normal 3.3-5.[address] [facility] Comment on above: Performed By: #### 2 968357, 8405252, 51152952, 4374083, 48136895, 26226125, 91513844 #### [facility] [address] [place] [address] ALP [Catalytic activity/Vol] 58 Int._Unit/L Normal 21-[address] [facility] Comment on above: Performed By: #### 2 946737, 7015179, 75751259, 7918448, 94081933, 42143048, 45945407 #### [facility] [address] [place] [address] ALT No additional P-5'-P [Catalytic activity/Vol] 33 Int._Unit/L Normal 6-[address] [facility] Comment on above: Performed By: #### 2 566985, 7234636, 39562786, 7576122, 00818999, 94116390, 19023374 #### [facility] [address] [place] [address] Anion gap [Moles/Vol] 12 mmol/L Normal 6-16 [facility] Comment on above: Performed By: #### 2 000780, 1744722, 00683382, 3988419, 04501653, 71560889, 72264090 #### [facility] [address] [place] [address] AST [Catalytic activity/Vol] 22 Int._Unit/L Normal 5-[address] [facility] Comment on above: Performed By: #### 2 318832, 7706401, 38112169, 4935004, 21207516, 22717017, 43885822 #### [facility] [address] [address] Bilirubin [Mass/Vol] 0.5 mg/dL Normal 0.0-1.1 [facility] Comment on above: Performed By: #### 2 784470, 7301639, 75315884, 1275603, 42757751, 17784359, 75439205 #### [facility] [address] [address] Calcium [Mass/Vol] 9.2 mg/dL Normal 8.9-11.[address] [facility] Comment on above: Performed By: #### 2 770339, 0083519, 16210224, 1165697, 37171832, 94105378, 86043702 #### [facility] [address] [place] [address] Chloride [Moles/Vol] 106 mmol/L Normal 101-111 [facility] Comment on above: Performed By: #### 2 722327, 1982273, 75670988, 4145319, 38417763, 60156083, 15573493 #### [facility] [address] [place] [address] CO2 [Moles/Vol] 23 mmol/L Normal 21-31 [facility] Comment on above: Performed By: #### 2 742680, 6970024, 60709362, [id number], [id number], [id number], [id number] #### [facility] [address] [place] [address] Creatinine [Mass/Vol] 0.6 mg/dL Normal 0.5-1.3 [facility] Comment on above: Performed By: #### 2 [id number], 2910732, [id number], 1320530, 66471632, [id number], [id number] #### [facility] [address] [place] [address] Globulin (S) [Mass/Vol] 3.3 g/dL Normal 1.4-4.[address] [facility] Comment on above: Performed By: #### 2 339925, 6372316, 40797809, 9260820, 33333122, 89905777, [id number] #### [facility] [address] [place] [address] Glucose [Mass/Vol] 94 mg/dL Normal 55-[address] [facility] Comment on above: Result Comment: If t his glucose result represents a fasting glucose, interpretation should refer to the following reference range: 55-99 mg/dL Performed By: #### 2 021916, 3398851, [id number], 8624205, 85552429, 31085649, [id number] #### [facility] [address] [place] [address] Potassium [Moles/Vol] 3.9 mmol/L Normal 3.5-5.3 [facility] Comment on above: Performed By: #### 2 917072, 2853556, 58627025, 2621318, 73792193, 38500610, [id number] #### [facility] [address] [place] [address] Protein [Mass/Vol] 7.8 g/dL Normal 6.0-7.[address] [facility] Comment on above: Performed By: #### 2 217583, 0791283, 89575586, 1230769, 76827435, 55298919, [id number] #### [facility] [address] [place] [address] Sodium [Moles/Vol] 137 mmol/L Normal 135-[address] [facility] Comment on above: Performed By: #### 2 933420, 8583434, 33552361, 5560579, 67106816, 47982512, 09594613 #### [facility] [address] [place] [address] Urea nitrogen [Mass/Vol] 12 mg/dL Normal 5-[address] [facility] Comment on above: Performed By: #### 2 915124, 0263950, 96031371, 6394890, 61570031, 99991365, [id number] #### [facility] [address] [place] [address] Urea nitrogen/Creatinine [Mass ratio] 20 No Units Normal 10-[address] [facility] Comment on above: Performed By: #### 2 804084, 1215904, 86097234, 9207341, 01473651, 86964657, [id number] #### [facility] [address] [place] [address] Coding Summaryon 02-11-2020 Coding Summary CODING DATE: 02/11/2020 [facility] STATUS: Home PAYOR: [place] ADMIT DX: REASON FOR VISIT DX: R19.7 [...] Akers Date Saved: 02/11/2020 08:49 am Normal [facility] Consent for Treatmenton 01-16 Consent for Treatment [id number] .00CD:127 Normal [facility] Gastro[facility]ology Office/Clin ic Noteon 02-11-2020 Gastroenterology Office/Clinic [...] q8hr, # 20 tab(s), Refills(s) 1, [id number], 167.64, cm, 02/11/20 15:12:00 EDT, Height/Length [...] day(s), # 120 cap(s), Refills(s) 11, Pharmacy: [facility]/pharmacy #[id number], 167.64, cm, 02/11/20 15:12:00 EDT, Height/Length [...] day(s), # 20 tab(s), Refills(s) 0, Pharmacy: [facility]/pharmacy #[id number], 167.64, cm, 02/11/20 15:12:00 EDT, Height/Length Measured, 90.4, kg, 02/11/20 15:12:00 EDT, Weight Measured 6. Cyclic vomiting syndrome (R11.15: Cyclical vomiting syndrome unrelated to migraine) Advised to stop marijuana use Follow-up With When Contact Information Emma PARSONS MD Within 2 weeks [facility] [address], [place] [address]- Additional Instructions: Patient Education Nausea, [...] Family history is negative Normal [facility] Comment on above: Result Comment: Elec [...] Document Reviewed: 03/15/2012 ExitCare? Patient Information ?2013 [employer]. Normal [facility] Sed Rate Automatedon 020 ESR (Bld) [Velocity] 10 mm/h Normal 0-34 [facility] Comment on above: Performed By: #### 2 894714, 9257779, 69939553, 6702447, 57408661, 84511921, [id number] #### [facility] [address] [place] [address] eGFRon 02-11-2020 GFR/1.73 sq M predicted among blacks MDRD (S/P/Bld) [Vol rate/Area] mL/min/{1.73_m2} Normal >=[address] [facility] Comment on above: Order Comment: Order added by Discern Expert. Result Comment: eGFR is race adjusted. AA=. Performed By: #### 2 228108, 0529023, 75080347, 3686609, 36072076, 17128565, [id number] #### [facility] [address] [place] [address] GFR/1.73 sq M predicted among non-blacks MDRD (S/P/Bld) [Vol rate/Area] mL/min/{1.73_m2} Normal >=[address] [facility] Comment on above: Order Comment: Order added by Discern Expert. Result Comment: Tank Truck Mechanic eulogio kidney disease could be indicated at eGFR's of less than 60 mL/min/1.73m2. Kidney failure is indicated at less than 15 mL/min/1.73m2. Performed By: #### 2 343617, 3318864, 91760849, 6405647, 90485976, 64883642, [id number] #### [facility] [address] [place] [address] Historical Records Officeon 02-08-2020 Historical Records Office [id number]. 00CD:[address] [facility] - Immunology/Serology Re sultson 01-31-2020 Lab - Immunology/Serology Results [id number] Normal [facility] SARS-CoV-2 (COVID-19) PCRon 01-30-2020 COVID-19 PCR Not Detected Normal Not Detected [facility] Comment on above: Order Comment: Sent to [facility] Performed By: #### 6 [id number] ####[facility] (DEFAULT)[address] [place] [address] Provider Orderson 01-29-2020 Provider Orders [id number] .00OTGTIFF Normal [facility] Vital Signs Date Time Vital Sign Value Performing Clinician Cheryl colindres 06-20-2024 13:21-0500 Body mass index (BMI) [Ratio] 38.24 kg/m2 Yeni ISAAC Work Phone: [facility] 06-20-2024 13:21-0500 Body weight 104.24 kg Yeni ISAAC Work Phone: [facility] 06-20-2024 13:21-0500 Diastolic blood pressure 84 mm[Hg] Yeni ISAAC Work Phone: [facility] 06-20-2024 13:21-0500 Systolic blood pressure 132 mm[Hg] Yeni ISAAC Work Phone: [facility] 06-13-2024 13:42-0500 Body mass index (BMI) [Ratio] 36.96 kg/m2 Scott Tu DO Work Phone: [facility] 06-13-2024 13:42-0500 Body weight 100.75 kg Scott Tu DO Work Phone: [facility] 06-13-2024 13:42-0500 Diastolic blood pressure 76 mm[Hg] Scott Tu DO Work Phone: [facility] 06-13-2024 13:42-0500 Systolic blood pressure 128 mm[Hg] Scott Tu DO Work Phone: [facility] 05-30-2024 15:14-0500 Body mass index (BMI) [Ratio] 35.41 kg/m2 Yeni [place] PA Work Phone: [facility] 05-30-2024 15:14-0500 Body weight 96.53 kg Yeni [place] PA Work Phone: [facility] 05-30-2024 15:14-0500 Diastolic blood pressure 74 mm[Hg] Yeni [place] PA Work Phone: [facility] 05-30-2024 15:14-0500 Systolic blood pressure 116 mm[Hg] Yeni [place] PA Work Phone: [facility] 05-16-2024 14:28-0400 Body mass index (BMI) [Ratio] 33.78 kg/m2 Yeni [place] PA Work Phone: [facility] 05-16-2024 14:28-0400 Body weight 92.08 kg Yeni [place]uma PA Work Phone: [facility] 05-16-2024 14:28-0400 Diastolic blood pressure 72 mm[Hg] Yeni [place] PA Work Phone: [facility] 05-16-2024 14:28-0400 Systolic blood pressure 124 mm[Hg] Yeni [place] PA Work Phone: [facility] 05-02-2024 13:46-0400 Body mass index (BMI) [Ratio] 33.08 kg/m2 Yeni Puma PA Work Phone: [facility] 05-02-2024 13:46-0400 Body weight 90.17 kg Yeni ISAAC Work Phone: [facility] 05-02-2024 13:46-0400 Diastolic blood pressure 80 mm[Hg] Yeni ISAAC Work Phone: [facility] 05-02-2024 13:46-0400 Systolic blood pressure 118 mm[Hg] Yeni ISAAC Work Phone: [facility] Healthcare Encounters Encounter Date Encounter Type Care Provider Facility Start: 06-20-2024 End: 06-20-2024 Bamboo flowsheet Yeni ISAAC Work Phone: [facility] Start: 06-20-2024 End: 06-20-2024 Bamboo flowsheet Yeni ISAAC Work Phone: [facility] Start: 06-20-2024 End: 06-20-2024 flow sheet Yeni ISAAC Work Phone: [facility] Comment on above: Third trimester preg jade; 37 weeks gestation of ; Other insomnia Start: 06-13-2024 End: 06-13-2024 Bamboo flowsheet Scott Tu DO Work Phone: [facility] Start: 06-13-2024 End: 06-13-2024 Bamboo flowsheet Scott Tu DO Work Phone: [facility] Start: 06-13-2024 End: 06-13-2024 ambulatory SCOTT TU Not Available Start: 06-13-2024 End: 06-13-2024 flow sheet Scott Tu DO Work Phone: [facility] Comment on above: Anemia during pregna ncy in third trimester; Third trimester ; 36 weeks gestation of Start: 06-02-2024 End: 06-02-2024 Emergency department patient visit ASHLEE TORRES [facility] Start: 05-30-2024 End: 05-30-2024 ambulatory YENI CHANEY Not Available Start: 05-30-2024 End: 05-30-2024 flow sheet Yeni ISAAC Work Phone: [facility] Comment on above: Third trimester preg jade; 34 weeks gestation of Start: 05-30-2024 End: 05-30-2024 Bamboo flowsheet Yeni ISAAC Work Phone: [facility] Start: 05-30-2024 End: 05-30-2024 Bamboo flowsheet Yeni ISAAC Work Phone: [facility] Start: 05-18-2024 End: 05-18-2024 Clinisync Result Encounter Yeni ISAAC Work Phone: [facility] Unsolicited Start: 05-18-2024 End: 05-18-2024 Clinisync Result Encounter Yeni ISAAC Work Phone: [facility] Unsolicited Start: 05-16-2024 End: 05-16-2024 flow sheet Yeni ISAAC Work Phone: [facility] Comment on above: Third trimester preg jade; 32 weeks gestation of ; induced hypertension, antepartum; Nonintractable headache, unspecified chronicity pattern, unspecified headache type; Nausea and vomiting in ; Exposure to STD Start: 05-16-2024 End: 05-16-2024 ambulatory YENI CHANEY Not Available Start: 05-16-2024 End: 05-16-2024 Bamboo flowsheet Yeni ISAAC Work Phone: [facility] Start: 05-16-2024 End: 05-16-2024 Bamboo flowsheet Yeni ISAAC Work Phone: [facility] Start: 05-16-2024 End: 05-16-2024 Clinisync Result Encounter Scott Tu DO Work Phone: [facility] Unsolicited Start: 05-07-2024 End: 05-07-2024 Clinisync Result Encounter Scott Tu DO Work Phone: [facility] Unsolicited Start: 05-07-2024 End: 05-07-2024 Clinisync Result Encounter Scott Tu DO Work Phone: [facility] External Department Unsolicited Start: 05-02-2024 End: 05-02-2024 Bamboo flowsheet Yeni ISAAC Work Phone: [facility] Start: 05-02-2024 End: 05-02-2024 Bamboo flowsheet Yeni ISAAC Work Phone: [facility] Start: 05-02-2024 End: 05-02-2024 ambulatory YENI CHANEY Not Available Start: 05-02-2024 End: 05-02-2024 flow sheet Yeni ISAAC Work Phone: [facility] Comment on above: Third trimester preg jade; 30 weeks gestation of ; Nausea and vomiting, unspecified vomiting type Start: 04-05-2024 End: 04-05-2024 ambulatory SCOTT TU Not Available Start: 03-15-2024 End: 03-15-2024 ambulatory SCOTT TU Not Available Start: 03-08-2024 End: 03-08-2024 ambulatory SCOTT TU Not Available Start: 02-23-2024 End: 02-23-2024 ambulatory YENI PUMA Not Available Start: 02-09-2024 End: 02-09-2024 ambulatory YENI PUMA Not Available Start: 01-24-2024 End: 01-24-2024 ambulatory SCOTT TU Not Available Start: 01-20-2024 End: 01-21-2024 [facility] Start: 01-20-2024 End: 01-20-2024 Emergency department patient visit [facility] Start: 01-12-2024 End: 01-12-2024 ambulatory SCOTT TU Not Available Start: 12-15-2023 End: 12-15-2023 ambulatory SCOTT TU Not Available Start: 11-25-2023 End: 11-25-2023 ambulatory SCOTT TU Not Available Start: 10-06-2023 End: 10-06-2023 ambulatory SCOTT TU Not Available Start: 08-08-2023 End: 08-08-2023 ambulatory SCOTT MAE Not Available Start: 06-23-2023 End: 06-23-2023 ambulatory SCOTT MAE Not Available Start: 12-09-2022 End: 12-11-2022 [...] Date Procedure Procedure Detail Performing Clinician Start: 06-20-2024 Urnls dip stick/tabl et rgnt non-auto w/o micrscp Yeni ISAAC Work Phone: Start: 06-13-2024 Urnls dip stick/tabl et rgnt non-auto w/o micrscp Scott Tu DO Work Phone: Start: 05-18-2024 [facility] TOTAL PROTEIN 24 HOUR URINE Yeni ISAAC Work Phone: Start: 05-16-2024 ALL CBC WITH AUTO DIFF Scott Tinsleyo DO Work Phone: Start: 05-16-2024 Urnls dip stick/tabl et rgnt non-auto w/o micrscp Yeni ISAAC Work Phone: Start: 05-07-2024 [facility] UA (CLEAN/CATCH) 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 Scott Tu DO Work Phone: Start: 05-02-2024 Urnls dip stick/tabl et rgnt non-auto w/o micrscp Scott Tu DO Work Phone: Start: 12-09-2022 Extraction of Produc ts of Conception, Low Cervical, Open Approach DR MARIO MARTINEZ . Plan of Treatment Date Care Activity Detail Author Start: 06-27-2024 End: 06-27-2024 Patient encounter procedure 06/27/2024 2:00 PM EST Routine [facility] [address] [place] [id number] Tu Scott, DO [address] [place] [place], [place] [id number] [facility] Start: 06-20-2024 End: 06-20-2024 Patient encounter procedure 06/20/2024 1:10 PM EST Routine [facility] [address] [place] [address] Yeni Chaney PA [address] [place] [address] [facility] Start: 06-13-2024 End: 06-13-2025 Strep B DNA probe, amplification Strep B DNA probe, amplification Lab Routine Third trimester Expected: 06/13/2024 (Approximate), Expires: 06/13/2025 [facility] Work Phone: Comment on above: Expected: 06/13/2024 (Approximate), Expires: 06/13/2025 Start: 06-13-2024 End: 06-13-2024 Patient encounter procedure 06/13/2024 1:00 PM EST Routine [facility] [address] [place] [id number] Scott Mae DO [address] [place] [address] [facility] Start: 05-30-2024 End: 05-30-2024 Patient encounter procedure 05/30/2024 2:30 PM EST Routine [facility] [address] [place] [address] Yeni Chaney PA [address] [place] [address] [facility] Start: 05-16-2024 End: 05-16-2024 Patient encounter procedure [facility] Comment on above: Arrived Start: 05-16-2024 End: 05-16-2025 Alanine aminotransferase [Enzymatic activity/volume] in Serum or Plasma ALT Lab Routine induced hypertension, antepartum Expected: 05/16/2024 (Approximate), Expires: 05/16/2025 [facility] Comment on above: Expected: 05/16/2024 (Approximate), Expires: 05/16/2025 Start: 05-16-2024 End: 05-16-2025 Aspartate aminotransferase [Enzymatic activity/volume] in Serum or Plasma AST Lab Routine induced hypertension, antepartum Expected: 05/16/2024 (Approximate), Expires: 05/16/2025 [facility] Comment on above: Expected: 05/16/2024 (Approximate), Expires: 05/16/2025 Start: 05-16-2024 End: 05-16-2025 CBC W Auto Differential panel - Blood CBC and differential Lab Routine induced hypertension, antepartum Expected: 05/16/2024 (Approximate), Expires: 05/16/2025 [facility] Comment on above: Expected: 05/16/2024 (Approximate), Expires: 05/16/2025 Start: 05-16-2024 End: 05-16-2025 Creatinine [Mass/volume] in Serum or Plasma Creatinine Lab Routine induced hypertension, antepartum Expected: 05/16/2024 (Approximate), Expires: 05/16/2025 [facility] Work Phone: Comment on above: Expected: 05/16/2024 (Approximate), Expires: 05/16/2025 Start: 05-16-2024 End: 05-16-2025 Lactate dehydrogenase [Enzymatic activity/volume] in Serum or Plasma by Lactate to pyruvate reaction Lactate dehydrogenase Lab Routine induced hypertension, antepartum Expected: 05/16/2024, Expires: 05/16/2025 [facility] Comment on above: Expected: 05/16/2024 , Expires: 05/16/2025 Start: 05-16-2024 End: 05-16-2025 Protein, urine, 24 hour Protein, urine, 24 hour Lab Routine induced hypertension, antepartum Expected: 05/16/2024 (Approximate), Expires: 05/16/2025 [facility] Comment on above: Expected: 05/16/2024 (Approximate), Expires: 05/16/2025 Start: 05-16-2024 End: 05-16-2025 Pt and ptt Pt and ptt Lab Routine induced hypertension, antepartum Expected: 05/16/2024, Expires: 05/16/2025 [facility] Comment on above: Expected: 05/16/2024 , Expires: 05/16/2025 Start: 05-16-2024 End: 05-16-2025 Urate [Mass/volume] in Serum or Plasma Uric acid Lab Routine induced hypertension, antepartum Expected: 05/16/2024 (Approximate), Expires: 05/16/2025 [facility] Comment on above: Expected: 05/16/2024 (Approximate), Expires: 05/16/2025 Start: 05-16-2024 End: 05-16-2025 Urea nitrogen [Mass/volume] in Serum or Plasma BUN Lab Routine induced hypertension, antepartum Expected: 05/16/2024, Expires: 05/16/2025 [facility] Comment on above: Expected: 05/16/2024 , Expires: 05/16/2025 Hemoglobin A1c/Hemoglobin.total in Blood Hemoglobin A1c Lab Routine induced hypertension, antepartum Ordered: 05/16/2024 [facility] Comment on above: Ordered: 05/16/2024 Payers Date Payer Category Payer Medicaid [id number] 2019 [facility] Member Subscriber Plan / Payer (Effective 2019-Present) Name: Debbi Prado Relation to Subscriber: Self Name: Debbi Prado Payer ID: Not on file Type: Not on file Address: [place] [id number] 1988 Unknown [id number] 2.16840.1.574951.3.579. 2.593 1988 Unknown [id number] 2.16.840.1.405097.3.579. 2.593 1988 Unknown [id number] 2.16.840.1.744269.3.579. 2.593 1988 Unknown [id number] 2.16.840.1.105925.3.579. 2.593 1988 Unknown [id number] 2.16.840.1.654710.3.579. 2.593 1988 Unknown [id number] 2.16.840.1.646877.3.579. 2.593 1988 Unknown [id number] 2.16.840.1.761774.3.579. 2.593 1988 Unknown [id number] 2.16.840.1.546291.3.579. 2.593 1988 Unknown [id number] 2.16.840.1.510136.3.579. 2.593 1988 Unknown [id number] 2.16.840.1.511733.3.579. 2.593 1988 Unknown [id number] 2.16.840.1.218597.3.579. 2.593 1988 Unknown [id number] 2.16.840.1.748652.3.579. 2.1286 1988 Unknown [id number] 2.16840.1.471010.3.579. 2.1286 1988 Unknown [id number] 2.16.840.1.361598.3.579. 2.1259 1988 Unknown [id number] 2.16840.1.930653.3.579. 2.1258 1988 Unknown [id number] 2.16840.1.450904.3.579. 2.9 1988 Unknown [id number] 2.840.1.476689.3.579. 2.1258 1988 Unknown [id number] 2.16840.1.722984.3.579. 2.9 1988 Unknown [id number] 2.16840.1.336152.3.579. 2.1258 1988 Unknown [id number] 2.840.1.479137.3.579. 2.9 1988 Unknown [id number] 2.840.1.469618.3.579. 2.1258 1988 Unknown [id number] 2.16840.1.371492.3.579. 2.9 1988 Unknown [id number] 2.16840.1.274849.3.579. 2.1258 1988 Unknown [id number] 2.16840.1.102057.3.579. 2.9 1988 Unknown [id number] 2.16840.1.843688.3.579. 2.1258 1988 Unknown [id number] 2.16840.1.315992.3.579. 2.1259 1988 Unknown [id number] 2.16.840.1.872202.3.579. 2.1259 1988 Unknown [id number] 2.16.840.1.940378.3.579. 2.1259 1988 Unknown [id number] 2.16.840.1.201179.3.579. 2.1259 1959 Self-pay [id number] 1961 Unknown [id number] Unknown [id number] 2.16.840.1.696654.3.579. 2.593 Social History Date Type Detail Facility Start: 06-13-20[facility] Start: 07-18-2006 End: 01-15-2021 History of tobacco use Current smoker [facility] Start: 07-18-2006 End: 01-15-2021 History of tobacco use Cigarette Smoker [facility] Start: 04-05-2024 End: 06-13-2024 Alcoholic beverage intake Lifetime non-drinker (finding) [facility] Start: 06-13-2023 End: 08-08-2023 History of Social function [facility] Start: 06-13-2023 End: 08-08-2023 Tobacco use panel [facility] Start: 06-13-2023 Alcohol Comment caffeine: occasional [facility] Start: 10-16-2023 [facility] Start: 1990 Sex assigned at Not on file [facility] Start: 09-29-2022 Gender identity Identifies as female gender (finding) [facility] Clinical Notes 12-09-2022 to 06-20-2024 MARLIN Pineda - 06/20/2024 1:10 PM Arya Orellana LPN - 06/13/2024 1:00 PM MARLIN Charles - 05/30/2024 2:30 PM MARLIN Charles - 05/16/2024 2:20 PM MARLIN Stone - 05/02/2024 1:10 PM EDT Note Date & Type Note Facility 06-20-2024 History of Presen t illness Narrative Reason for Appointment: Patient ID: Debbi Prado is a 33 y.o. female who presents for Routine Visit Patient presents today for Return OB appointment. MEDICATIONS Current Outpatient Medications Medication Instructions iron polysaccharides (PROFE) 391.3 mg, Oral, Daily ALLERGIES Allergies Allergen Reactions Azithromycin Hives and Itching Other Reaction(s): Unknown Reaction PROBLEMS Active Ambulatory Problems Diagnosis Date Noted Bipolar 1 disorder ([facility]) 01/20/2023 Anxiety with depression 01/20/2023 Fatty liver 01/20/2023 Generalized anxiety disorder ([facility]) 01/20/2023 Irregular menses 01/20/2023 Irritable bowel syndrome with diarrhea 01/20/2023 Mild chronic gastritis 01/20/2023 Grief at loss of child ([facility]) 10/06/2023 Persistent depressive disorder ([facility]) 10/06/2023 Syncope 03/15/2024 Low-lying placenta 03/15/2024 Dizziness 03/15/2024 Dehydration 03/15/2024 Migraine without status migrainosus, not intractable ([facility]) 03/15/2024 Irregular uterine contractions 03/15/2024 Chronic fatigue 04/05/2024 Herpes Third trimester 06/20/2024 37 weeks gestation of 06/20/2024 Resolved Ambulatory Problems Diagnosis Date Noted No Resolved Ambulatory Problems Past Medical History: Diagnosis Date Bipolar disorder ([facility]) Depression ([facility]) IBS (irritable bowel syndrome) Marijuana use Panic attack ([facility]) PTSD (post-traumatic stress disorder) ([facility]) 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) Thyroid enlargement ([facility]) HISTORY PAST MEDICAL HISTORY SOCIAL HISTORY Past Medical History: Diagnosis Date Bipolar disorder ([facility]) Depression ([facility]) Fatty liver Herpes IBS (irritable bowel syndrome) Irritable bowel syndrome with diarrhea Marijuana use Mild chronic gastritis Panic attack ([facility]) PTSD (post-traumatic stress disorder) ([facility]) 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) Thyroid enlargement ([facility]) Social History Tobacco Use Smoking [...] reviewed. Vitals: Estimated body mass index is 38.24 kg/m as calculated from the following: Height as of 01/25/23: 5' 5 . Weight as of this encounter: 229 lb 12.8 oz. BP: 132/84 Patient's last menstrual period was 09/26/2023. ASSESSMENT & PLAN ICD-10-CM 1. Third trimester Z34.93 POCT urinalysis dipstick manually resulted 2. 37 weeks gestation of Z3A.37 POCT urinalysis dipstick manually resulted 3. Other insomnia G47.09 Return OB: Patient presents today for a routine obstetrics appointment. Patient is currently 37w3d . Patient states she is doing well but has complaints of being tired due to current . Patient has verbalizes frequent movement. labor precautions was discussed/given and patient was instructed to perform kick counts three times a day. Orders Placed This Encounter Procedures POCT urinalysis dipstick manually resulted Follow Up: Patient is to return to office in 1 week for routine OB appointment. documented in this encounter [facility] 06-13-2024 History of Presen t illness Narrative [...] Problems Diagnosis Date Noted Bipolar 1 disorder ([facility]) 01/20/2023 Anxiety with depression 01/20/2023 Fatty liver 01/20/2023 Generalized anxiety disorder ([facility]) 01/20/2023 Irregular menses 01/20/2023 Irritable bowel syndrome with diarrhea 01/20/2023 Mild chronic gastritis 01/20/2023 Grief at loss of child ([facility]) 10/06/2023 Persistent depressive disorder ([facility]) 10/06/2023 Syncope 03/15/2024 Low-lying placenta 03/15/2024 Dizziness 03/15/2024 Dehydration 03/15/2024 Migraine without status migrainosus, not intractable ([facility]) 03/15/2024 Irregular uterine contractions 03/15/2024 Chronic fatigue 04/05/2024 Herpes Resolved Ambulatory Problems Diagnosis Date Noted No Resolved Ambulatory Problems Past Medical History: Diagnosis Date Bipolar disorder ([facility]) Depression ([facility]) IBS (irritable bowel syndrome) Marijuana use Panic [...] nursing note reviewed. Exam conducted with a custodial operations manager present. Vitals: Estimated body mass index [...] Scott Mae DO documented in this encounter [facility] 05-30-2024 History of Presen t illness Narrative [...] Problems Diagnosis Date Noted Bipolar 1 disorder ([facility]) 01/20/2023 Anxiety with depression 01/20/2023 Fatty liver 01/20/2023 Generalized anxiety disorder ([facility]) 01/20/2023 Irregular menses 01/20/2023 Irritable bowel syndrome with diarrhea 01/20/2023 Mild chronic gastritis 01/20/2023 Grief at loss of child ([facility]) 10/06/2023 Persistent depressive disorder ([facility]) 10/06/2023 Syncope 03/15/2024 Low-lying placenta 03/15/2024 Dizziness 03/15/2024 Dehydration 03/15/2024 Migraine without status migrainosus, not intractable ([facility]) 03/15/2024 Irregular uterine contractions 03/15/2024 Chronic fatigue 04/05/2024 Herpes Resolved Ambulatory Problems Diagnosis Date Noted No Resolved Ambulatory Problems Past Medical History: Diagnosis Date Bipolar disorder ([facility]) Depression ([facility]) IBS (irritable bowel syndrome) Marijuana use Panic attack ([facility]) PTSD (post-traumatic stress disorder) ([facility]) 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) Thyroid enlargement ([facility]) HISTORY PAST MEDICAL HISTORY SOCIAL HISTORY Past Medical History: Diagnosis Date Bipolar disorder ([facility]) Depression ([facility]) Fatty liver Herpes IBS (irritable bowel syndrome) Irritable bowel syndrome with diarrhea Marijuana use Mild chronic gastritis Panic attack ([facility]) PTSD (post-traumatic stress disorder) ([facility]) 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) Thyroid enlargement (CMS/HCC) [...] of: MARLIN Pineda documented in this encounter [facility] 05-16-2024 History of Presen t illness Narrative [...] Problems Diagnosis Date Noted Bipolar 1 disorder ([facility]) 01/20/2023 Anxiety with depression 01/20/2023 Fatty liver 01/20/2023 Generalized anxiety disorder ([facility]) 01/20/2023 Irregular menses 01/20/2023 Irritable bowel syndrome with diarrhea 01/20/2023 Mild chronic gastritis 01/20/2023 Grief at loss of child ([facility]) 10/06/2023 Persistent depressive disorder ([facility]) 10/06/2023 Syncope 03/15/2024 Low-lying placenta 03/15/2024 Dizziness [...] of: MARLIN Pineda documented in this encounter [facility] 05-02-2024 History of Presen t illness Narrative [...] Problems Diagnosis Date Noted Bipolar 1 disorder ([facility]) 01/20/2023 Anxiety with depression 01/20/2023 Fatty liver 01/20/2023 Generalized anxiety disorder ([facility]) 01/20/2023 Irregular menses 01/20/2023 Irritable bowel syndrome with diarrhea 01/20/2023 Mild chronic gastritis 01/20/2023 Grief at loss of child ([facility]) 10/06/2023 Persistent depressive disorder ([facility]) 10/06/2023 Syncope 03/15/2024 Low-lying placenta 03/15/2024 Dizziness 03/15/2024 Dehydration 03/15/2024 Migraine without status migrainosus, not intractable ([facility]) 03/15/2024 Irregular uterine contractions 03/15/2024 Chronic fatigue 04/05/2024 Resolved Ambulatory Problems Diagnosis Date Noted No Resolved Ambulatory Problems Past Medical History: Diagnosis Date Bipolar disorder ([facility]) Depression ([facility]) Herpes IBS (irritable bowel syndrome) Marijuana use Panic attack ([facility]) PTSD (post-traumatic stress disorder) ([facility]) 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) Thyroid enlargement ([facility]) HISTORY PAST MEDICAL HISTORY SOCIAL HISTORY Past Medical History: Diagnosis Date Bipolar disorder ([facility]) Depression ([facility]) Fatty liver Herpes IBS (irritable bowel syndrome) Irritable bowel syndrome with diarrhea Marijuana use Mild chronic gastritis Panic attack ([facility]) PTSD (post-traumatic stress disorder) ([facility]) 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) Thyroid enlargement ([facility]) Social History Tobacco Use Smoking [...] nursing note reviewed. Exam conducted with a custodial operations manager present. Vitals: Estimated body mass index [...] of: MARLIN Pineda documented in this encounter [facility] 12-09-2022 Note OPERATIVE NOTE OPERATION DATE: 12/09/2022 PROCEDURE: Primary low transverse section. PREOPERATIVE DIAGNOSIS: 1. Intrauterine at 39 weeks. 2. 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 POSTOPERATIVE DIAGNOSIS: 1. Intrauterine at 39 weeks. 2. 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 ANESTHESIA: Spinal with Duramorph. SURGEON: Scott Mae D.O. DIRECTOR CLINICAL RESEARCH: DANIELA Koch URINE OUTPUT: Yellow and clear. [...] the Recovery Room in stable condition. [facility] [place] Evaluation note Diagnosis Third trimester state, incidental 30 weeks gestation of Nausea and vomiting, unspecified vomiting type [facility] Diagnosis Third trimester state, incidental 32 weeks gestation of induced hypertension, antepartum Transient hypertension of , antepartum Nonintractable headache, unspecified chronicity pattern, unspecified headache type Nausea and vomiting in Unspecified vomiting of , unspecified as to episode of care Exposure to STD [facility] Diagnosis Third trimester state, incidental 34 weeks gestation of [facility] Diagnosis Anemia during in third trimester Third trimester state, incidental 36 weeks gestation of [facility] Diagnosis Third trimester state, incidental 37 weeks gestation of Other insomnia documented in this encounter [facility] Summary [...] section and content) DATE CREATED AUTHOR 04/24/2020 Roberson Charlie [facility] DATE CREATED AUTHOR AUTHOR'S ORGANIZ ATION 05/26/2020 [facility] DATE CREATED AUTHOR AUTHOR'S ORGANIZ ATION 08/02/2021 [facility] DATE CREATED AUTHOR AUTHOR'S ORGANIZ ATION 12/24/2022 [facility] DATE CREATED AUTHOR AUTHOR'S ORGANIZ ATION 01/21/2024 [facility] DATE CREATED AUTHOR AUTHOR'S ORGANIZ ATION 06/04/2024 [facility] DATE CREATED AUTHOR AUTHOR'S ORGANIZ ATION 06/16/2024 [facility] EPIC Care Teams (unrecognized sec tion and content) Supervisor Throwing Department Relationship Specialty Start Date End Date Janice Dinero DO [address] [place] [address] PCP - General Family Medicine 12/20/22 Supervisor Throwing Department Relationship Specialty Start Date End Date Janice Dinero DO [address] [place] [address] PCP - General Family Medicine 12/20/22 Supervisor Throwing Department Relationship Specialty Start Date End Date Janice Dinero, [address] [place] [address] PCP - General Family Medicine 12/20/22 Supervisor Throwing Department Relationship Specialty Start Date End Date Janice Dinero DO [address] [place] [address] PCP - General Family Medicine 12/20/22 Supervisor Throwing Department Relationship Specialty Start Date End Date RumJanice casas, DO [address] [place] [address] PCP - General Family Medicine 12/20/22 Supervisor Throwing Department Relationship Specialty Start Date End Date RumJanice casas, DO [address] [place] [address] PCP - General Family Medicine 12/20/22 Supervisor Throwing Department Relationship Specialty Start Date End Date RumyesseniaShelbiety, DO [address] [place] [address] PCP - General Family Medicine 12/20/22 Supervisor Throwing Department Relationship Specialty Start Date End Date Rumyessenia Janice, DO [address] [place] [address] PCP - General Family Medicine 12/20/22 Supervisor Throwing Department Relationship Specialty Start Date End Date YesicaJanice casas, DO [address] [place] [address] PCP - General Family Medicine 12/20/22 Supervisor Throwing Department Relationship Specialty Start Date End Date RumJanice casas, DO [address] [place] [address] PCP - General Family Medicine 12/20/22 Reason [...] BE BASED ON THE PRIMARY CLINICAL RECORDS. [facility]. provides no warranty or guarantee of the accuracy or completeness of information in this document.
[2024-06-21 16:34] LABS: Basophils Absolute Auto 0.1 10^3/uL (0.0-0.1); Basophils Percent Auto 0.5 % (0.2-2.0); Eosinophils Absolute Auto 0.1 10^3/uL (0.0-0.7); Hematocrit 27.7 % (36.0-48.0); Hemoglobin 8.3 g/dL (12.0-16.0); Immature Granulocytes Abs Auto 0.23 10^3/uL (0.00-0.03); Immature Granulocytes Pct Auto 2.3 % (0.0-0.5); Lymphocytes Absolute Auto 1.9 10^3/uL (1.2-3.8); Lymphocytes Percent Auto 18.5 % (20.5-60.0); Mean Corpuscular Hemoglobin 22.7 pg (26.7-34.0); Mean Corpuscular Volume 75.9 fL (81.0-99.0); Mean Platelet Volume 11.4 fL (9.5-13.5); Monocytes Percent Auto 9.4 % (1.7-12.0); Neutrophils Absolute Auto 6.9 10^3/uL (1.4-6.5); Neutrophils Percent Auto 68.3 % (43.0-75.0); Platelet Count 271 10^3/uL (150-450); Red Blood Count 3.65 10^6/uL (4.20-5.40); Red Cell Distribution Width 16.4 % (11.0-15.0); White Blood Count 10.1 10^3/uL (4.0-11.0)
[2024-06-21 16:35] LABS: Bilirubin Urine NEGATIVE (NEGATIVE); Blood Urine TRACE-I (NEGATIVE); Clarity Urine CLEAR (CLEAR); Color Urine LT. YELLOW (YELLOW); Glucose Urine UA NEGATIVE (NEGATIVE); Ketones Urine NEGATIVE (NEGATIVE); Leukocyte Esterase Urine NEGATIVE (NEGATIVE); Nitrite Urine NEGATIVE (NEGATIVE); Protein Urine 30 mg/dL (NEG/TRACE); Urobilinogen Urine 0.2 EU/dL (0.2-1.0)
--- OUTSIDE RECORDS SUMMARY | 2024-06-21 16:35 | XMS_ITS | CCD ---
Author Organization [facility] Care Team Providers Care Body Mechanic Name Role Phone JUAN ., DR MARTIN [...] ZIEBER, DR FREDY Copeland Consulting Unavailable SERVICES, [facility] Unava ilable RALPH CISNEROS Attending Unavailable NANETTECHJOSE FAROOQ Attending Unavailable JOSE LEONARDO Referring Unavailable SERVICES, [facility] Unava ilable Janice Dinero DO Primary Care Provider ASHLEE TORRES Admitting Unavailable ASLHEE TORRES Attending Unavailable SERVICES, [facility] Unava ilable TU, SCOTT Attending Unavailable TU, SCOTT Attending Unavailable TU, SCOTT Attending Unavailable TU, SCOTT Attending Unavailable TU, SCOTT Attending Unavailable TU, SCOTT Attending Unavailable PUMA, YENI Attending Unavailable PUMA, YENI Attending Unavailable TU, SCOTT Attending Unavailable TU, SCOTT Attending Unavailable UT, SCOTT Attending Unavailable PUMA, YENI Attending Unavailable PUMA, YENI Attending Unavailable PUMA, YENI Attending Unavailable TU, SCOTT Attending Unavailable Allergies Allergy Classification Reported Allergen(s) Allergy Type Date of Onset Reaction(s) Facility Macrolides (antibiotic) (1 source) Azithromycin; Translations: [AZITHROMYCIN] Drug Allergy 7 [facility] Repository (1 source) Azithromycin Drug Allergy [address] [facility] Repository (19 sources) Azithromycin; Translations: [AZITHROMYCIN] Drug [...] 01-20-2024 Episodic Other aftercare (1 source) Other rn long term care (current) drug therapy; Translations: [OTH [facility] CURRENT DRUG THERAPY] Onset: 12-14-2022 Episodic Other [...] UA Negative Negative - 4(70) +++ mg/dL [facility] Blood, UA Negative Negative - 50 Nelson/mcL [facility] Clarity, UA Cloudy [facility] Color, UA Yellow [facility] Glucose, UA Negative Negative - 2000(110) ++++ mg/dL [facility] Interpretation and review of laboratory results Abnormal [facility] Ketones, UA Negative Negative - 160(16) ++++ mg/dL [facility] Leukocytes, UA Negative Negative - 500+++ Antonio/mcL [facility] Nitrite, UA Negative Negative - Positive [facility] pH, UA 7 5 - 9 [facility] Protein, UA Positive Negative - 2000(20) ++++ mg/dL [facility] Comment on above: 30mg Spec Grav, UA 1.02 1 - 1.03 [facility] Urobilinogen, UA 0.2 0.2 - 12 mg/dL [facility] Urinalysis macro (dipstick) panel (U)on 06-13-2024 Bilirubin, UA Negative Negative - 4(70) +++ mg/dL [facility] Blood, UA Negative Negative - 50 Nelson/mcL [facility] Clarity, UA Clear [facility] Color, UA Yellow [facility] Glucose, UA Negative Negative - 2000(110) ++++ mg/dL [facility] Interpretation and review of laboratory results Abnormal [facility] Ketones, UA Negative Negative - 160(16) ++++ mg/dL [facility] Leukocytes, UA Negative Negative - 500+++ Antonio/mcL [facility] Nitrite, UA Negative Negative - Positive [facility] pH, UA 6 5 - 9 [facility] Protein, UA Trace Negative - 2000(20) ++++ mg/dL [facility] Spec Grav, UA 1.025 1 - 1.03 [facility] Urobilinogen, UA 0.2 0.2 - 12 mg/dL [facility] URINALYSISon 06-02-2024 Bilirubin Ql (U) Negative Normal NEG [facility] Comment on above: Performed By: #### U A #### [facility] ([id number]) [address], [address] [place] [address] BLOOD/HGB Negative Normal NEG [facility] Comment on above: Performed By: #### U A #### [facility] ([id number]) [address], [address] [place] [address] Color (U) YELLOW Normal YELLOW [facility] Comment on above: Performed By: #### U A #### [facility] ([id number]) [address], [address] [place] [address] Glucose Ql (U) 150 mg/dL Abnormal NEG [facility] Comment on above: Performed By: #### U A #### [facility] ([id number]) [address], [address] [place] [address] Ketones Ql (U) Trace Abnormal NEG [facility] Comment on above: Performed By: #### U A #### [facility] ([id number]) [address], [address] [place] [address] Leukocyte esterase Test strip Ql (U) Negative Normal NEG [facility] Comment on above: Performed By: #### U A #### [facility] ([id number]) [address], [address] [place] [address] MUCOUS PRESENT Abnormal NONE [facility] Comment on above: Performed By: #### U A #### [facility] ([id number]) [address], [address] [place] [address] Nitrite Ql (U) Negative Normal NEG [facility] Comment on above: Performed By: #### U A #### [facility] ([id number]) [address], [address] [place] [address] pH (U) 6.0 [pH] Normal 5.0-8.5 [facility] Comment on above: Performed By: #### U A #### [facility] ([id number]) [address], [address] [place] [address] Protein Ql (U) 30 mg/dL Abnormal NEG [facility] Comment on above: Performed By: #### U A #### [facility] ([id number]) [address], [address] [place] [address] R.B.CELLS 1 /hpf Normal 0-5 [facility] Comment on above: Performed By: #### U A #### [facility] ([id number]) [address], [address] [place] [address] Specific gravity (U) [Rel density] 1.027 Normal 1.003-1.035 [facility] Comment on above: Performed By: #### U A #### [facility] ([id number]) [address] [address] [place] [address] SQUAMOUS EPITHELIUM 2 /hpf Normal 0-5 [facility] Comment on above: Performed By: #### U A #### [facility] ([id number]) [address], [address] [address] TURBIDITY CLEAR Normal CLEAR [facility] Comment on above: Performed By: #### U A #### [facility] ([id number]) [address], [address] [address] Urobilinogen (U) [Mass/Vol] mg/dL Normal <1.1 [facility] Comment on above: Performed By: #### U A #### [facility] ([id number]) [address] [address] W.B.CELLS 3 /hpf Normal 0-5 [facility] Comment on above: Performed By: #### U A #### [facility] ([id number]) [address] [address] URINE CULTUREon 06-02-2024 Bacteria identified Cx Nom (U) CULTURE RESULTS <10,000 ORGANISMS/ML NORMAL URO GENITAL ALOK Normal [facility] Comment on above: Performed By: #### 6 30-4 #### [facility] ([id number]) [address] [address] VAGINITIS PANEL PCRon 2023 VAGINITIS PANEL PCR [...] clinical presentation to determine patient diagnosis. Normal [facility] Comment on above: Performed By: #### V PPCR #### [facility] ([id number]) [address] [facility], [address] [place] [address] TBH TOTAL PROTEIN 24 HOUR UR INEon 05-18-2024 Interpretation and review of laboratory results Abnormal [facility] Protein (U) [Mass/Vol] 20.7 mg/dL High NINF - 11.9 mg/dL [facility] TBH TOTAL PROTEIN 24 HOUR URINE 351.9 High [facility] TOTAL VOLUME 24 HOUR URINE 1700 mL/24hr [facility] ALL CBC WITH AUTO DIFFon BASOPHILS ABSOLUTE AUTO 0.1 [facility] Basophils/100 WBC (Bld) 0.4 % 0.2 - 2.0 % [facility] Eosinophils/100 WBC (Bld) 1 % 0.9 - 7.0 % [facility] Erythrocyte distribution width (RBC) [Ratio] 15 % 11.0 - 15.0 % [facility] Hematocrit (Bld) [Volume fraction] 30.1 % Low 36.0 - 48.0 % [facility] Hemoglobin (Bld) [Mass/Vol] 9.1 g/dL Low 12.0 - 16.0 g/dL [facility] IMMATURE GRANULOCYTES ABS AUTO 0.43 High [facility] Immature granulocytes/100 WBC (Bld) 3.2 % High 0.0 - 0.5 % [facility] Interpretation and review of laboratory results Abnormal [facility] LYMPHOCYTES ABSOLUTE AUTO 2.3 [facility] Lymphocytes/100 WBC (Bld) 17 % Low 20.5 - 60.0 % [facility] MCH (RBC) [Entitic mass] 24.5 pg Low 26.7 - 34.0 pg [facility] MCHC (RBC) [Mass/Vol] 30.2 g/dL 29.9 - 35.2 g/dL [facility] MCV (RBC) [Entitic vol] 81.1 fL 81.0 - 99.0 fL [facility] MONOCYTES ABSOLUTE AUTO 1.1 High [facility] Monocytes/100 WBC (Bld) 8.1 % 1.7 - 12.0 % [facility] NEUTROPHILS ABSOLUTE AUTO 9.5 High [facility] Neutrophils/100 WBC (Bld) 70.3 % 43.0 - 75.0 % [facility] Platelet mean volume (Bld) [Entitic vol] 9.8 fL 9.5 - 13.5 fL [facility] EO # 0.1 [facility] PLT [address] [facility] RBC 3.71 Low [facility] WBC 13.5 High [facility] Urinalysis macro (dipstick) panel (U)on 05-16-2024 Bilirubin, UA Positive Negative - 4(70) +++ mg/dL [facility] Comment on above: small Blood, UA Positive Negative - 50 Nelson/mcL [facility] Comment on above: blood Clarity, UA Clear [facility] Color, UA Leonila [facility] Glucose, UA Negative Negative - 1999(110) ++++ mg/dL [facility] Interpretation and review of laboratory results Abnormal [facility] Ketones, UA Positive Negative - 160(16) ++++ mg/dL [facility] Comment on above: trace Leukocytes, UA Negative Negative - 500+++ Antonio/mcL [facility] Nitrite, UA Negative Negative - Positive [facility] pH, UA 6 5 - 9 [facility] Protein, UA Positive Negative - 1999(20) ++++ mg/dL [facility] Comment on above: 30 mg Spec Grav, UA 1.025 1 - 1.03 [facility] Urobilinogen, UA 0.2 0.2 - 12 mg/dL [facility] UA (CLEAN/CATCH) MOBILE DEVELOPER/CARMELITA RO IF IND.on 05-07-2024 BILIRUBIN URINE Negative NEGATIVE [facility] BLOOD URINE Negative NEGATIVE [facility] Clarity (U) CLEAR CLEAR [facility] Color (U) LT YELLOW YELLOW [facility] GLUCOSE URINE UA 250 mg/dL Abnormal NEGATIVE [facility] Interpretation and review of laboratory results Abnormal [facility] Ketones Ql (U) Negative NEGATIVE mg/dL [facility] Leukocyte esterase Test strip Ql (U) Negative NEGATIVE [facility] NITRITE URINE Negative NEGATIVE [facility] pH (U) 6.5 [pH] 5.0 - 9.0 [facility] PROTEIN URINE Negative NEG/TRACE mg/dL [facility] SPECIFIC GRAVITY URINE 1.015 1.005 - 1.025 [facility] URINE MICROSCOPIC INDICATED NO [facility] UROBILINOGEN URINE 0.2 EU/dL 0.2 - 1.0 EU/dL [facility] Urinalysis macro (dipstick) panel (U)on 05-02-2024 Bilirubin, UA Negative Negative - 4(70) +++ mg/dL [facility] Blood, UA Negative Negative - 50 Nelson/mcL [facility] Clarity, UA Clear [facility] Color, UA Yellow [facility] Glucose, UA Negative Negative - 2000(110) ++++ mg/dL [facility] Interpretation and review of laboratory results Abnormal [facility] Ketones, UA Positive Negative - 160(16) ++++ mg/dL [facility] Leukocytes, UA Negative Negative - 500+++ Antonio/mcL [facility] Nitrite, UA Negative Negative - Positive [facility] pH, UA 6 5 - 9 [facility] Protein, UA Positive Negative - 2000(20) ++++ mg/dL [facility] Spec Grav, UA 1.025 1 - 1.03 [facility] Urobilinogen, UA 1.0 0.2 - 12 mg/dL [facility] CBC AND AUTO DIFFon 01-20-20 24 ABSOLUTE BASOPHIL 0.1 X10E9/L Normal 0.0-0.2 [facility] Comment on above: Performed By: #### C MELYSSA NICOLE, 70528-1 #### [facility] ([id number]) [address] [place] [address] ABSOLUTE NEUTROPHIL 8.1 X10E9/L High 1.5-6.6 [facility] Comment on above: Performed By: #### Melia NICOLE CMP, 00668-8 #### [facility] ([id number]) [address] [place] [address] Basophils/100 WBC (Bld) 0.5 % Normal [facility] Comment on above: Performed By: #### Melia NICOLE CMP, 37437-7 #### [facility] ([id number]) [address] [place] [address] Eosinophils (Bld) [#/Vol] 0.2 10*3/uL Normal 0.0-0.4 [facility] Comment on above: Performed By: #### C COREY [facility], 44625-6 #### [facility] ([id number]) [address] [place] [address] Eosinophils/100 WBC (Bld) 1.4 % Normal [facility] Comment on above: Performed By: #### Melia NICOLE [facility], 28342-4 #### [facility] ([id number]) [address] [place] [address] Erythrocyte distribution width (RBC) [Ratio] 14.4 % Normal 11.5-15.0 [facility] Comment on above: Performed By: #### Melia NICOLE [facility], 40109-3 #### [facility] ([id number]) [address] [place] [address] Hematocrit (Bld) [Volume fraction] 32.4 % Low 35-47 [facility] Comment on above: Performed By: #### Melia NICOLE [facility], 96360-7 #### [facility] ([id number]) [address] [place] [address] Hemoglobin (Bld) [Mass/Vol] 10.9 g/dL Low 11.7-15.5 [facility] Comment on above: Performed By: #### Melia NICOLE [facility], 94690-2 #### [facility] ([id number]) [address] [place] [address] Lymphocytes (Bld) [#/Vol] 2.0 10*3/uL Normal 1.0-3.5 [facility] Comment on above: Performed By: #### Melia NICOLE CMP, 84541-2 #### [facility] ([id number]) [address] [place] [address] Lymphocytes/100 WBC (Bld) 17.8 % Normal [facility] Comment on above: Performed By: #### Melia NICOLE CMP, 42492-3 #### [facility] ([id number]) [address] [place] [address] MCH (RBC) [Entitic mass] 28.4 pg Normal 27-34 [facility] Comment on above: Performed By: #### Melia NICOLE, CMP, 27970-5 #### [facility] ([id number]) [address] [place] [address] MCHC (RBC) [Mass/Vol] 33.5 g/dL Normal 32-36 [facility] Comment on above: Performed By: #### Melia NICOLE, CMP, 40341-4 #### [facility] ([id number]) [address] [place] [address] MCV (RBC) [Entitic vol] 85 fL Normal 80-100 [facility] Comment on above: Performed By: #### Melia NICOLE, CMP, 82599-8 #### [facility] ([id number]) [address] [place] [address] Monocytes (Bld) [#/Vol] 0.8 10*3/uL Normal 0-0.9 [facility] Comment on above: Performed By: #### Melia NICOLE, CMP, 45986-9 #### [facility] ([id number]) [address] [place] [address] Monocytes/100 WBC (Bld) 7.1 % Normal [facility] Comment on above: Performed By: #### Melia BCA, CMP, 78611-7 #### [facility] ([id number]) [address] [place] [address] Neutrophils/100 WBC (Bld) 73.2 % Normal [facility] Comment on above: Performed By: #### Melia BCA, CMP, 46762-5 #### [facility] ([id number]) [address] [place] [address] Platelet mean volume (Bld) [Entitic vol] 7.5 fL Normal 7-12 [facility] Comment on above: Performed By: #### Melia NICOLE CMP, 17291-8 #### [facility] ([id number]) [address] [place] [address]235 Platelets (Bld) [#/Vol] 300 10*3/uL Normal 150-450 [facility] Comment on above: Performed By: #### Melia NICOLE CMP, 15804-7 #### [facility] ([id number]) [address] [place] [address]288 RBC COUNT 3.83 X10E12/L Normal 3.80-5.20 [facility] Comment on above: Performed By: #### Melia NICOLE CMP, 85565-7 #### [facility] ([id number]) [address] [place] [address] 79365 WBC (Bld) [#/Vol] 11.1 10*3/uL High 4.0-11.0 [facility] Comment on above: Performed By: #### Melia NICOLE, CMP, 09143-5 #### [facility] ([id number]) [address] [place] [address] COMPREHENSIVE METABOLIC PANE Yassine 01-20-2024 Albumin [Mass/Vol] 3.2 g/dL Normal 3.2-5.3 [facility] Comment on above: Performed By: #### Melia NICOLE, CMP, 00201-9 #### [facility] ([id number]) [address] [place] [address]885 ALP [Catalytic activity/Vol] 49 U/L Normal 39-130 [facility] Comment on above: Performed By: #### Melia NICOLE, CMP, 97179-5 #### [facility] ([id number]) [address] [place] [address] ALT [Catalytic activity/Vol] 16 U/L Normal 0-31 [facility] Comment on above: Performed By: #### C MELYSSA NICOLE, 13350-0 #### [facility] ([id number]) [address] [place] [address]8579 Anion gap [Moles/Vol] 7 mmol/L Normal 5-15 [facility] Comment on above: Performed By: #### C MELYSSA NICOLE, 64030-5 #### [facility] ([id number]) [address] [place] [address] 85744 AST [Catalytic activity/Vol] 20 U/L Normal 0-41 [facility] Comment on above: Performed By: #### Melia NICOLE CMP, 59054-8 #### [facility] ([id number]) [address] [place] [address] 37800 Bilirubin [Mass/Vol] 0.3 mg/dL Normal 0.3-1.2 [facility] Comment on above: Performed By: #### Melia NICOLE CMP, 10284-9 #### [facility] ([id number]) [address] [place] [address] 66847 Calcium [Mass/Vol] 8.6 mg/dL Normal 8.5-10.5 [facility] Comment on above: Performed By: #### Melia NICOLE CMP, 09163-5 #### [facility] ([id number]) [address] [place] [address] 31452 Chloride [Moles/Vol] 99 mmol/L Normal 98-109 [facility] Comment on above: Performed By: #### Melia NICOLE CMP, 78203-5 #### [facility] ([id number]) [address] [place] [address] 17157 CO2 [Moles/Vol] 22 mmol/L Normal 22-32 [facility] Comment on above: Performed By: #### C MELYSSA NICOLE, 23053-6 #### [facility] ([id number]) [address] [place] [address] 25809 Creatinine [Mass/Vol] 0.56 mg/dL Normal 0.40-1.00 [facility] Comment on above: Result Comment: METH OD TRACEABLE TO IDMS STANDARD Performed By: #### C MELYSSA NICOLE, 47746-4 #### [facility] ([id number]) [address] [place] [address] 51356 eGFR (CKD-EPI) NON-RACE DEPENDENT >90 Normal >59 [facility] Comment on above: Result Comment: Reported eGFR is based on the CKD-EPI 2020 equation that does not use a race coefficient. Performed By: #### C MELYSSA NICOLE, 41370-8 #### [facility] ([id number]) [address] [place] [address] 84547 Glucose [Mass/Vol] 102 mg/dL High 65-99 [facility] Comment on above: Performed By: #### C MELYSSA NICOLE, 12804-3 #### [facility] ([id number]) [address] [place] [address] 55402 Potassium [Moles/Vol] 3.7 mmol/L Normal 3.5-5.0 [facility] Comment on above: Performed By: #### C MELYSSA NICOLE, 26735-6 #### [facility] ([id number]) [address] [place] [address] 89040 Protein [Mass/Vol] 7.2 g/dL Normal 6.0-8.0 [facility] Comment on above: Performed By: #### C MELYSSA NICOLE, 40885-8 #### [facility] ([id number]) [address] [place] [address] 16969 Sodium [Moles/Vol] 128 mmol/L Low 134-146 [facility] Comment on above: Performed By: #### C COREY, [facility], 52633-5 #### [facility] ([id number]) [address] [place] [address] 14208 Urea nitrogen [Mass/Vol] 9 mg/dL Normal 5-23 [facility] Comment on above: Performed By: #### C COREY, [facility], 37883-0 #### [facility] ([id number]) [address] [place] [address] BRAIN WO CONTon CT BRAIN WO [...] Mckinley MD on 01/20/2024 2:56 PM Normal [facility] CT CERVICAL SPINE WO CONTon 01-20-2024 [...] Corrales MD on 01/20/2024 2:52 PM Normal [facility] Troponin I.cardiac High sens itivity method [Mass/Vol]on 01-20-2024 1 HOUR TROP I, HIGH SENSITIVITY <2 Normal <16 [facility] Comment on above: Performed By: #### 8 9579-7 #### [facility] ([id number]) [address] [place] [address], [place] [address] TROPONIN I, HIGH SENSITIVITY <2 Normal <16 [facility] Comment on above: Performed By: #### C BCA, CMP, 16769-3 #### [facility] ([id number]) [address] [place] [address], [place] [address] CANNABINOID (THC) CONFIRMATI ON, URINEon 12-15-2022 Cannabinoid Positive Abnormal [facility] Comment on above: Performed By: #### C BC #### [facility] [address] [place] [address] Dr. Isi Forbes Carboxy THC GC/MS Conf >750 Normal Cutoff=10 [facility] Comment on above: Performed By: #### C BC #### [facility] [address] [place] [address] Dr. Isi Forbes CBC AUTO DIFFon 12-10-2022 BASO # 0.0 103/ul Normal 0.0-0.1 [facility] Comment on above: Performed By: #### G TT3P #### [facility] [address] [place] [address] Dr. Isi Forbes Basophils/100 WBC (Bld) 0.3 % Normal 0.2-2.[address] [facility] Comment on above: Performed By: #### G TT3P #### [facility] [address] [place] [address] Dr. Isi Forbes EO # 0.1 103/ul Normal 0.0-0.[address] [facility] Comment on above: Performed By: #### G TT3P #### [facility] [address] [place] [address] Dr. Isi Forbes Eosinophils/100 WBC (Bld) 0.5 % Critically low 0.9-7.0 [facility] Comment on above: Performed By: #### G TT3P #### [facility] [address] [address] [address] Isi Forbes Erythrocyte distribution width (RBC) [Ratio] 13.8 % Normal 11.0-15.0 [facility] Comment on above: Performed By: #### G TT3P #### [facility] [address] [place] [address] Dr. Isi Forbes Hematocrit (Bld) [Volume fraction] 24.1 % Critically low 36.0-48.0 [facility] Comment on above: Performed By: #### G TT3P #### [facility] [address] [place] [address] Dr. Isi Forbes Hemoglobin (Bld) [Mass/Vol] 7.7 g/dL Critically low 12.0-16.0 [facility] Comment on above: Performed By: #### G TT3P #### [facility] [address] [place] [address] Dr. Isi Forbes IG # 0.11 10e3/ul Critically high 0.00-0.03 [facility] Comment on above: Performed By: #### G TT3P #### [facility] [address] [place] [address] Dr. Isi Forbes IG % 0.9 % Critically high 0.0-0.5 [facility] Comment on above: Performed By: #### G TT3P #### [facility] [address] [place] [address] Dr. Isi Forbes LYMPH # 2.0 103/ul Normal 1.2-3.8 [facility] Comment on above: Performed By: #### G TT3P #### [facility] [address] [place] [address] Dr. Isi Forbes Lymphocytes/100 WBC (Bld) 16.9 % Critically low 20.5-60.0 [facility] Comment on above: Performed By: #### G TT3P #### [facility] [address] [place] [address] Dr. Isi Forbes MANUAL DIFF REQ NO Normal [facility] Comment on above: Performed By: #### G TT3P #### [facility] [address] [address] [address] Isi Forbes MCH (RBC) [Entitic mass] 27.4 pg Normal 26.7-34.0 [facility] [facility] Comment on above: Performed By: #### G TT3P #### [facility] [address] [place] [address] Dr. Isi Forbes MCHC (RBC) [Mass/Vol] 32.0 g/dL Normal 29.9-35.2 [facility] Comment on above: Performed By: #### G TT3P #### [facility] [address] [place] [address] Dr. Isi Forbes MCV (RBC) [Entitic vol] 85.8 fL Normal 81.0-99.0 [facility] Comment on above: Performed By: #### G TT3P #### [facility] [address] [place] [address] Dr. Isi Forbes MONO # 1.5 103/ul Critically high 0.3-0.8 [facility] Comment on above: Performed By: #### G TT3P #### [facility] [address] [place] [address] Dr. Isi Forbes Monocytes/100 WBC (Bld) 12.2 % Critically high 1.7-12.0 [facility] Comment on above: Performed By: #### G TT3P #### [facility] [address] [place] [address] Dr. Isi Forbes NEUT # 8.3 103/ul Critically high 1.4-6.5 [facility] Comment on above: Performed By: #### G TT3P #### [facility] [address] [place] [address] Dr. Isi Forbes Neutrophils/100 WBC (Bld) 69.2 % Normal 43.0-75.[address] [facility] Comment on above: Performed By: #### G TT3P #### [facility] [address] [place] [address] Dr. Isi Forbes Platelet mean volume (Bld) [Entitic vol] 9.6 fL Normal 9.5-13.5 [facility] Comment on above: Performed By: #### G TT3P #### [facility] [address] [place] [address] Dr. Isi Forbes PLT 205 103/ul Normal 150-450 [facility] Comment on above: Performed By: #### G TT3P #### [facility] [address] [place] [address] Dr. Isi Forbes RBC 2.81 106/ul Critically low 4.20-5.40 [facility] Comment on above: Performed By: #### G TT3P #### [facility] [address] [place] [address] Dr. Isi Forbes WBC 12.0 103/ul Critically high 4.0-11.0 [facility] Comment on above: Performed By: #### G TT3P #### [facility] [address] [place] [address] Dr. Isi Forbes CBC AUTO DIFFon 12-09-2022 BASO # 0.1 103/ul Normal 0.0-0.1 [facility] Comment on above: Performed By: #### G TT3P #### [facility] [address] [place] [address] Dr. Isi Forbes Basophils/100 WBC (Bld) 0.5 % Normal 0.2-2.0 [facility] Comment on above: Performed By: #### G TT3P #### [facility] [address] [place] [address] Dr. Isi Forbes EO # 0.1 103/ul Normal 0.0-0.7 [facility] Comment on above: Performed By: #### G TT3P #### [facility] [address] [place] [address] Dr. Isi Forbes Eosinophils/100 WBC (Bld) 0.4 % Critically low 0.9-7.0 [facility] Comment on above: Performed By: #### G TT3P #### [facility] [address] [place] [address] Dr. Isi Forbes Erythrocyte distribution width (RBC) [Ratio] 13.7 % Normal 11.0-15.0 [facility] Comment on above: Performed By: #### G TT3P #### [facility] [address] [place] [address] Dr. Isi Forbes Hematocrit (Bld) [Volume fraction] 31.9 % Critically low 36.0-48.0 [facility] Comment on above: Performed By: #### G TT3P #### [facility] [address] [place] [address] Dr. Isi Forbes Hemoglobin (Bld) [Mass/Vol] 10.5 g/dL Critically low 12.0-16.0 [facility] Comment on above: Performed By: #### G TT3P #### [facility] [address] [place] [address] Dr. Isi Forbes IG # 0.13 10e3/ul Critically high 0.00-0.03 [facility] Comment on above: Performed By: #### G TT3P #### [facility] [address] [place] [address] Dr. Isi Forbes IG % 1.2 % Critically high 0.0-0.5 [facility] Comment on above: Performed By: #### G TT3P #### [facility] [address] [place] [address] Dr. Isi Forbes LYMPH # 2.0 103/ul Normal 1.2-3.8 [facility] Comment on above: Performed By: #### G TT3P #### [facility] [address] [place] [address] Dr. Isi Forbes Lymphocytes/100 WBC (Bld) 18.0 % Critically low 20.5-60.0 [facility] Comment on above: Performed By: #### G TT3P #### [facility] [address] [place] [address] Dr. Isi Forbes MANUAL DIFF REQ NO Normal [facility] Comment on above: Performed By: #### G TT3P #### [facility] [address] [place] [address] Dr. Isi Forbes MCH (RBC) [Entitic mass] 27.6 pg Normal 26.7-34.0 [facility] Comment on above: Performed By: #### G TT3P #### [facility] [address] [place] [address] Dr. Isi Forbes MCHC (RBC) [Mass/Vol] 32.9 g/dL Normal 29.9-35.2 [facility] Comment on above: Performed By: #### G TT3P #### [facility] [address] [place] [address] Dr. Isi Forbes MCV (RBC) [Entitic vol] 83.9 fL Normal 81.0-99.0 [facility] Comment on above: Performed By: #### G TT3P #### [facility] [address] [place] [address] Dr. Isi Forbes MONO # 1.0 103/ul Critically high 0.3-0.8 [facility] Comment on above: Performed By: #### G TT3P #### [facility] [address] [place] [address] Dr. Isi Forbes Monocytes/100 WBC (Bld) 8.9 % Normal 1.7-12.0 [facility] Comment on above: Performed By: #### G TT3P #### [facility] [address] [place] [address] Dr. Isi Forbes NEUT # 7.9 103/ul Critically high 1.4-6.5 [facility] Comment on above: Performed By: #### G TT3P #### [facility] [address] [place] [address] Dr. Isi Forbes Neutrophils/100 WBC (Bld) 71.0 % Normal 43.0-75.[address] [facility] Comment on above: Performed By: #### G TT3P #### [facility] [address] [place] [address] Dr. Isi Forbes Platelet mean volume (Bld) [Entitic vol] 10.0 fL Normal 9.5-13.5 [facility] Comment on above: Performed By: #### G TT3P #### [facility] [address] [place] [address] Dr. Isi Forbes PLT 264 103/ul Normal 150-[address] [facility] Comment on above: Performed By: #### G TT3P #### [facility] [address] [place] [address] Dr. Isi Forbes RBC 3.80 106/ul Critically low 4.20-5.40 [facility] Comment on above: Performed By: #### G TT3P #### [facility] [address] [place] [address] Dr. Isi Forbes WBC 11.1 103/ul Critically high 4.0-11.0 [facility] Comment on above: Performed By: #### G TT3P #### [facility] [address] [place] [address] Dr. Isi Forbes DRUG SCREEN RAPID (URINE)on 12-09-2022 AMP Negative Normal NEGATIVE [facility] Comment on above: Performed By: #### G TT3P #### [facility] [address] [place] [address] Dr. Isi Forbes BAR Negative Normal NEGATIVE [facility] Comment on above: Performed By: #### G TT3P #### [facility] [address] [place] [address] Dr. Isi Forbes BUP Negative Normal NEGATIVE [facility] Comment on above: Performed By: #### G TT3P #### [facility] [address] [place] [address] Dr. Isi Forbes BZO Negative Normal NEGATIVE [facility] Comment on above: Performed By: #### G TT3P #### [facility] [address] [place] [address] Dr. Isi Forbes BEATA Negative Normal NEGATIVE [facility] Comment on above: Performed By: #### G TT3P #### [facility] [address] [place] [address] Dr. Isi Forbes CUT-OFFS SEE BELOW Normal [facility] Comment on above: Result Comment: [...] ng/mL Performed By: #### G TT3P #### [facility] [address] [place] [address] Dr. Isi Forbes DRUG CUT HEADER DRUG CLASS TEST SYSTEM CUT-OFF CONCENTRATIONS ARE FOLLOWS: Normal [facility] Comment on above: Performed By: #### G TT3P #### [facility] [address] [place] [address] Dr. Isi Forbes mAMP Negative Normal NEGATIVE [facility] Comment on above: Performed By: #### G TT3P #### [facility] [address] [place] [address] Dr. Isi Forbes MTD Negative Normal NEGATIVE [facility] Comment on above: Performed By: #### G TT3P #### [facility] [address] [place] [address] Dr. Isi Forbes OPI Negative Normal NEGATIVE [facility] Comment on above: Performed By: #### G TT3P #### [facility] [address] [place] [address] Dr. Isi Forbes OXY Negative Normal NEGATIVE [facility] Comment on above: Performed By: #### G TT3P #### [facility] [address] [place] [address] Dr. Isi Forbes PCP Negative Normal NEGATIVE [facility] Comment on above: Performed By: #### G TT3P #### [facility] [address] [place] [address] Dr. Isi Forbes PPX Negative Normal NEGATIVE [facility] Comment on above: Performed By: #### G TT3P #### [facility] [address] [place] [address] Dr. Isi Forbes TCA Negative Normal NEGATIVE [facility] Comment on above: Performed By: #### G TT3P #### [facility] [address] [place] [address] Dr. Isi Forbes THC Positive Abnormal NEGATIVE [facility] Comment on above: Performed By: #### G TT3P #### [facility] [address] [place] [address] Dr. Isi Forbes TYPE AND SCREENon 12-09-2022 TYPE AND SCREEN Negative Normal [facility] Comment on above: Performed By: #### R PRQ #### [facility] [address] [place] [address] Dr. Isi Forbes UA (CLEAN/CATCH) MOBILE DEVELOPER/MICRO I F IND.on 12-09-2022 Bilirubin Ql (U) Negative Normal NEGATIVE [facility] Comment on above: Performed By: #### C BC #### [facility] [address] [place] [address] Dr. Isi Forbes Clarity (U) CLEAR Normal CLEAR [facility] Comment on above: Performed By: #### C BC #### [facility] [address] [place] [address] Dr. Isi Forbes Color (U) YELLOW Normal YELLOW [facility] Comment on above: Performed By: #### C BC #### [facility] [address] [place] [address] Dr. Isi Forbes Glucose Ql (U) Negative Normal NEGATIVE [facility] Comment on above: Performed By: #### C BC #### [facility] [address] [place] [address] Dr. Isi Forbes Hemoglobin Ql (U) Negative Normal NEGATIVE [facility] Comment on above: Performed By: #### C BC #### [facility] [address] [place] [address] Dr. Isi Forbes Ketones Ql (U) TRACE Abnormal NEGATIVE [facility] Comment on above: Performed By: #### C BC #### [facility] [address] [place] [address] Dr. Isi Forbes LEUKOCYTES Negative Normal NEGATIVE [facility] Comment on above: Performed By: #### C BC #### [facility] [address] [place] [address] Dr. Isi Forbes Nitrite Ql (U) Negative Normal NEGATIVE [facility] Comment on above: Performed By: #### C BC #### [facility] [address] [place] [address] Dr. Isi Forbes pH (U) 6.5 [pH] Normal 5-9 [facility] Comment on above: Performed By: #### C BC #### [facility] [address] [place] [address] Dr. Isi Forbes SPEC GRAVITY 1.025 Normal 1.005-<=1.025 [facility] Comment on above: Performed By: #### C BC #### [facility] [address] [place] [address] Dr. Isi Forbes UA PROTEIN TRACE Normal NEGATIVE/ TRACE [facility] Comment on above: Performed By: #### C BC #### [facility] [address] [place] [address] Dr. Isi Forbes UR MICRO IND NOT INDICATED Normal [facility] Comment on above: Performed By: #### C BC #### [facility] [address] [place] [address] Dr. Isi Forbes Urobilinogen Qn (U) 0.2 {Barb'U}/dL Normal 0.2 - 1. 0 [facility] Comment on above: Performed By: #### C BC #### [facility] [address] [place] [address] Dr. Isi Forbes GROUP B STREP CULTUREon 11-15 S. agalactiae Ag Ql (Unsp spec) Culture Observations: NEGATIVE FOR GROUP B STREPTOCOCCUS. Normal [facility] Comment on above: Performed By: #### R PRQ #### [facility] [address] [place] [address] Dr. Isi Forbes US PREG BIOPHY W [...] FREDY DICK Date: 2022-10-31 22:[address] [facility] US PREG GROWTHon 11-01-2022 US PREG [...] FREDY DICK Date: 2022-10-31 22:[address] [facility] CBC AUTO DIFFon 10-28-2022 BASO # 0.0 103/ul Normal 0.0-0.[address] [facility] Comment on above: Performed By: #### G TT3P #### [facility] [address] [place] [address] Dr. Isi Forbes Basophils/100 WBC (Bld) 0.1 % Critically low 0.2-2.[address] [facility] Comment on above: Performed By: #### G TT3P #### [facility] [address] [place] [address] Dr. Isi Forbes EO # 0.0 103/ul Normal 0.0-0.7 [facility] Comment on above: Performed By: #### G TT3P #### [facility] [address] [address] [address] Isi Forbes Eosinophils/100 WBC (Bld) 0.1 % Critically low 0.9-7.0 [facility] Comment on above: Performed By: #### G TT3P #### [facility] [address] [place] [address] Dr. Isi Forbes Erythrocyte distribution width (RBC) [Ratio] 12.7 % Normal 11.0-15.0 [facility] Comment on above: Performed By: #### G TT3P #### [facility] [address] [place] [address] Dr. Isi Forbes Hematocrit (Bld) [Volume fraction] 29.1 % Critically low 36.0-48.0 [facility] Comment on above: Performed By: #### G TT3P #### [facility] [address] [place] [address] Dr. Isi Forbes Hemoglobin (Bld) [Mass/Vol] 9.4 g/dL Critically low 12.0-16.0 [facility] Comment on above: Performed By: #### G TT3P #### [facility] [address] [place] [address] Dr. Isi Forbes IG # 0.20 10e3/ul Critically high 0.00-0.03 [facility] Comment on above: Performed By: #### G TT3P #### [facility] [address] [place] [address] Dr. Isi Forbes IG % 1.4 % Critically high 0.0-0.5 [facility] Comment on above: Performed By: #### G TT3P #### [facility] [address] [place] [address] Dr. Isi Forbes LYMPH # 1.9 103/ul Normal 1.2-3.[address] [facility] Comment on above: Performed By: #### G TT3P #### [facility] [address] [place] [address] Dr. Isi Forbes Lymphocytes/100 WBC (Bld) 13.5 % Critically low 20.5-60.0 [facility] Comment on above: Performed By: #### G TT3P #### [facility] [address] [place] [address] Dr. Isi Forbes MANUAL DIFF REQ NO Normal [facility] Comment on above: Performed By: #### G TT3P #### [facility] [address] [place] [address] Dr. Isi Forbes MCH (RBC) [Entitic mass] 28.2 pg Normal 26.7-34.0 [facility] Comment on above: Performed By: #### G TT3P #### [facility] [address] [place] [address] Dr. Isi Forbes MCHC (RBC) [Mass/Vol] 32.3 g/dL Normal 29.9-35.2 [facility] Comment on above: Performed By: #### G TT3P #### [facility] [address] [place] [address] Dr. Isi Forbes MCV (RBC) [Entitic vol] 87.4 fL Normal 81.0-99.0 [facility] Comment on above: Performed By: #### G TT3P #### [facility] [address] [place] [address] Dr. Isi Forbes MONO # 0.8 103/ul Normal 0.3-0.8 [facility] Comment on above: Performed By: #### G TT3P #### [facility] [address] [place] [address] Dr. Isi Forbes Monocytes/100 WBC (Bld) 5.9 % Normal 1.7-12.0 [facility] Comment on above: Performed By: #### G TT3P #### [facility] [address] [place] [address] Dr. Isi Forbes NEUT # 10.9 103/ul Critically high 1.4-6.5 [facility] Comment on above: Performed By: #### G TT3P #### [facility] [address] [place] [address] Dr. Isi Forbes Neutrophils/100 WBC (Bld) 79.0 % Critically high 43.0-75.0 [facility] Comment on above: Performed By: #### G TT3P #### [facility] [address] [place] [address] Dr. Isi Forbes Platelet mean volume (Bld) [Entitic vol] 9.3 fL Critically low 9.5-13.5 [facility] Comment on above: Performed By: #### G TT3P #### [facility] [address] [place] [address] Dr. Isi Forbes PLT 265 103/ul Normal 150-[address] [facility] Comment on above: Performed By: #### G TT3P #### [facility] [address] [place] [address] Dr. Isi Forbes RBC 3.33 106/ul Critically low 4.20-5.40 [facility] Comment on above: Performed By: #### G TT3P #### [facility] [address] [place] [address] Dr. Isi Forbes WBC 13.8 103/ul Critically high 4.0-11.0 [facility] Comment on above: Performed By: #### G TT3P #### [facility] [address] [place] [address] Dr. Isi Forbes CBC AUTO DIFFon 10-27-2022 BASO # 0.0 103/ul Normal 0.0-0.1 [facility] Comment on above: Performed By: #### C BC #### [facility] [address] [place] [address] Dr. Isi Forbes Basophils/100 WBC (Bld) 0.2 % Normal 0.2-2.0 [facility] Comment on above: Performed By: #### C BC #### [facility] [address] [place] [address] Dr. Isi Forbes EO # 0.0 103/ul Normal 0.0-0.7 [facility] Comment on above: Performed By: #### C BC #### [facility] [address] [place] [address] Dr. Isi Forbes Eosinophils/100 WBC (Bld) 0.1 % Critically low 0.9-7.0 [facility] Comment on above: Performed By: #### C BC #### [facility] [address] [address] [address] Isi Forbes Erythrocyte distribution width (RBC) [Ratio] 12.7 % Normal 11.0-15.0 [facility] Comment on above: Performed By: #### C BC #### [facility] [address] [place] [address] Dr. Isi Forbes Hematocrit (Bld) [Volume fraction] 30.4 % Critically low 36.0-48.0 [facility] Comment on above: Performed By: #### C BC #### [facility] [address] [place] [address] Dr. Isi Forbes Hemoglobin (Bld) [Mass/Vol] 10.4 g/dL Critically low 12.0-16.0 [facility] Comment on above: Performed By: #### C BC #### [facility] [address] [place] [address] Dr. Isi Forbes IG # 0.19 10e3/ul Critically high 0.00-0.03 [facility] Comment on above: Performed By: #### C BC #### [facility] [address] [place] [address] Dr. Isi Forbes IG % 1.2 % Critically high 0.0-0.5 [facility] Comment on above: Performed By: #### C BC #### [facility] [address] [place] [address] Dr. Isi Forbes LYMPH # 1.1 103/ul Critically low 1.2-3.8 [facility] Comment on above: Performed By: #### C BC #### [facility] [address] [place] [address] Dr. Isi Forbes Lymphocytes/100 WBC (Bld) 6.7 % Critically low 20.5-60.0 [facility] Comment on above: Performed By: #### C BC #### [facility] [address] [place] [address] Dr. Isi Forbes MANUAL DIFF REQ NO Normal [facility] Comment on above: Performed By: #### C BC #### [facility] [address] [place] [address] Dr. Isi Forbes MCH (RBC) [Entitic mass] 29.5 pg Normal 26.7-34.[address] [facility] Comment on above: Performed By: #### C BC #### [facility] [address] [place] [address] Dr. Isi Forbes MCHC (RBC) [Mass/Vol] 34.2 g/dL Normal 29.9-35.[address] [facility] Comment on above: Performed By: #### C BC #### [facility] [address] [place] [address] Dr. Isi Forbes MCV (RBC) [Entitic vol] 86.1 fL Normal 81.0-99.0 [facility] Comment on above: Performed By: #### C BC #### [facility] [address] [place] [address] Dr. Isi Forbes MONO # 0.3 103/ul Normal 0.3-0.8 [facility] Comment on above: Performed By: #### C BC #### [facility] [address] [place] [address] Dr. Isi Forbes Monocytes/100 WBC (Bld) 1.7 % Normal 1.7-12.0 [facility] Comment on above: Performed By: #### C BC #### [facility] [address] [place] [address] Dr. Isi Forbes NEUT # 14.1 103/ul Critically high 1.4-6.5 [facility] Comment on above: Performed By: #### C BC #### [facility] [address] [place] [address] Dr. Isi Forbes Neutrophils/100 WBC (Bld) 90.1 % Critically high 43.0-75.[address] [facility] Comment on above: Performed By: #### C BC #### [facility] [address] [place] [address] Dr. Isi Forbes Platelet mean volume (Bld) [Entitic vol] 8.9 fL Critically low 9.5-13.[address] [facility] Comment on above: Performed By: #### C BC #### [facility] [address] [place] [address] Dr. Isi Forbes PLT 276 103/ul Normal 150-450 [facility] Comment on above: Performed By: #### C BC #### [facility] [address] [place] [address] Dr. Isi Forbes RBC 3.53 106/ul Critically low 4.20-5.40 [facility] Comment on above: Performed By: #### C BC #### [facility] [address] [place] [address] Dr. Isi Forbes WBC 15.6 103/ul Critically high 4.0-11.0 [facility] Comment on above: Performed By: #### C BC #### [facility] [address] [place] [address] Dr. Isi Forbes UA (CLEAN/CATCH) MOBILE DEVELOPER/MICRO I F IND.on 10-27-2022 Bilirubin Ql (U) Negative Normal NEGATIVE [facility] Comment on above: Performed By: #### C BC #### [facility] [address] [place] [address] Dr. Isi Forbes Clarity (U) CLEAR Normal CLEAR [facility] Comment on above: Performed By: #### C BC #### [facility] Laboratory [address] [place] [address] Dr. Isi Forbes Color (U) LT. YELLOW Normal YELLOW [facility] Comment on above: Performed By: #### C BC #### [facility] [address] [place] [address] Dr. Isi Forbes Glucose Ql (U) Negative Normal NEGATIVE [facility] Comment on above: Performed By: #### C BC #### [facility] [address] [place] [address] Dr. Isi Forbes Hemoglobin Ql (U) Negative Normal NEGATIVE [facility] Comment on above: Performed By: #### C BC #### [facility] [address] [place] [address] Dr. Isi Forbes Ketones Ql (U) Negative Normal NEGATIVE [facility] Comment on above: Performed By: #### C BC #### [facility] [address] [place] [address] Dr. Isi Forbes LEUKOCYTES Negative Normal NEGATIVE [facility] Comment on above: Performed By: #### C BC #### [facility] [address] [place] [address] Dr. Isi Forbes Nitrite Ql (U) Negative Normal NEGATIVE [facility] Comment on above: Performed By: #### C BC #### [facility] [address] [place] [address] Dr. Isi Forbes pH (U) 6.0 [pH] Normal 5-9 [facility] Comment on above: Performed By: #### C BC #### [facility] [address] [place] [address] Dr. Isi Forbes SPEC GRAVITY 1.010 Normal 1.005-<=1.025 [facility] Comment on above: Performed By: #### C BC #### [facility] [address] [place] [address] Dr. Isi Forbes UA PROTEIN Negative Normal NEGATIVE/ TRACE [facility] Comment on above: Performed By: #### C BC #### [facility] [address] [place] [address] Dr. Isi Forbes UR MICRO IND NOT INDICATED Normal [facility] Comment on above: Performed By: #### C BC #### [facility] [address] [place] [address] Dr. Isi Forbes Urobilinogen Qn (U) 0.2 {Barb'U}/dL Normal 0.2 - 1. 0 [facility] Comment on above: Performed By: #### C BC #### [facility] [address] [place] [address] Dr. Isi Forbes US PREG CERVICAL LENGTHon [...] FREDY DICK Date: 2022-10-27 16:[address] [facility] GTT 3 HR PREGon 10-26-2022 Glucose [Mass/Vol] 99 mg/dL Normal 74-106 [facility] Comment on above: Performed By: #### G TT3P #### [facility] [address] [address] [address] Isi Forbes Glucose [Mass/Vol] 172 mg/dL Normal [facility] Comment on above: Performed By: #### G TT3P #### [facility] [address] [address] [address] Isi Forbes Glucose [Mass/Vol] 147 mg/dL Normal [facility] Comment on above: Performed By: #### G TT3P #### [facility] [address] [address] [address] Isi Forbes Glucose [Mass/Vol] 125 mg/dL Normal [facility] Comment on above: Performed By: #### G TT3P #### [facility] [address] [address] [address] Isi Forbes GLYCOHEMOGLOBIN A1Con 2022 ADA RECOMMENDATION SEE BELOW Normal [facility] Comment on above: Result Comment: ADA RECOMMENDED LIMIT 4.0 - 6.0 ADA THERAPEUTIC TARGET < 7.0 ACTION SUGGESTED > 7.0 Performed By: #### A 1C #### [facility] [address] [address] [address] Isi Forbes Glucose [Mass/Vol] 114 mg/dL Normal [facility] Comment on above: Performed By: #### A 1C #### [facility] [address] [address] [address] Isi Forbes HbA1c (Bld) [Mass fraction] 5.6 % Normal 4.5-6.2 [facility] Comment on above: Performed By: #### A 1C #### [facility] [address] [place] [address] Dr. Isi Forbes UA RANDOMon 10-25-2022 Bilirubin Ql (U) Negative Normal NEGATIVE [facility] Comment on above: Performed By: #### R PRQ #### [facility] [address] [place] [address] Dr. Isi Forbes Clarity (U) CLEAR Normal CLEAR [facility] Comment on above: Performed By: #### R PRQ #### [facility] [address] [address] [address] Isi Forbes Color (U) LT. YELLOW Normal YELLOW [facility] Comment on above: Performed By: #### R PRQ #### [facility] [address] [place] [address] Dr. Isi Forbes Glucose Ql (U) Negative Normal NEGATIVE [facility] Comment on above: Performed By: #### R PRQ #### [facility] [address] [place] [address] Dr. Isi Forbes Hemoglobin Ql (U) Negative Normal NEGATIVE [facility] Comment on above: Performed By: #### R PRQ #### [facility] [address] [place] [address] Dr. Isi Forbes Ketones Ql (U) Negative Normal NEGATIVE [facility] Comment on above: Performed By: #### R PRQ #### [facility] [address] [place] [address] Dr. Isi Forbes LEUKOCYTES Negative Normal NEGATIVE [facility] Comment on above: Performed By: #### R PRQ #### [facility] [address] [place] [address] Dr. Isi Forbes Nitrite Ql (U) Negative Normal NEGATIVE [facility] Comment on above: Performed By: #### R PRQ #### [facility] [address] [place] [address] Dr. Isi Forbes pH (U) 7.5 [pH] Normal 5-[address] [facility] Comment on above: Performed By: #### R PRQ #### [facility] [address] [place] [address] Dr. Isi Forbes SPEC GRAVITY 1.020 Normal 1.005-<=1.025 [facility] Comment on above: Performed By: #### R PRQ #### [facility] [address] [place] [address] Dr. Isi Forbes UA PROTEIN Negative Normal NEGATIVE/ TRACE [facility] Comment on above: Performed By: #### R PRQ #### [facility] [address] [place] [address] Dr. Isi Forbes Urobilinogen Qn (U) 0.2 {Barb'U}/dL Normal 0.2 - 1. 0 [facility] Comment on above: Performed By: #### R PRQ #### [facility] [address] [place] [address] Dr. Isi Forbes GLUCOSE - 1HRon 09-27-2022 Glucose [Mass/Vol] 166 mg/dL Critically high 74-106 [facility] Comment on above: Performed By: #### C BC #### [facility] [address] [place] [address] Dr. Isi Forbes HEMOGRAM AND PLATELon 2022 Hematocrit (Bld) [Volume fraction] 30.9 % Critically low 36.0-48.0 [facility] Comment on above: Performed By: #### C BC #### [facility] [address] [place] [address] Dr. Isi Forbes Hemoglobin (Bld) [Mass/Vol] 10.4 g/dL Critically low 12.0-16.0 [facility] Comment on above: Performed By: #### C BC #### [facility] [address] [place] [address] Dr. Isi Forbes MCH (RBC) [Entitic mass] 29.9 pg Normal 26.7-34.0 [facility] Comment on above: Performed By: #### C BC #### [facility] [address] [place] [address] Dr. Isi Forbes MCHC (RBC) [Mass/Vol] 33.7 g/dL Normal 29.9-35.2 [facility] Comment on above: Performed By: #### C BC #### [facility] [address] [place], [place] [address] Dr. Isi Forbes MCV (RBC) [Entitic vol] 88.8 fL Normal 81.0-99.0 [facility] Comment on above: Performed By: #### C BC #### [facility] [address] [place], [place] [address] Dr. Isi Forbes PLT 300 103/ul Normal 150-[address] [facility] Comment on above: Performed By: #### C BC #### [facility] [address] [address] [address] sIi Forbes RBC 3.48 106/ul Critically low 4.20-5.40 [facility] Comment on above: Performed By: #### C BC #### [facility] [address] [address] [address] Isi Forbes WBC 10.1 103/ul Normal 4.0-11.[address] [facility] Comment on above: Performed By: #### C BC #### [facility] [address] [address] [address] Isi Forbes US PREG ANATOMY SINGLEon [...] by: ASHLEE STOVER Date: 2022-08-04 16:06 Normal [facility] PAP ACOG PANEL 2: 30 to 65on 07-25-2022 . . Normal [facility] Comment on above: Result Comment: Perf ormed at: [facility] Performed By: #### G TT3P #### [facility] [address] [place] [address] Dr. Isi Forbes Age Gdln ACOG Testing [facility] Comment on above: Performed By: #### G TT3P #### [facility] [address] [address] [address] Isi Forbes DIAGNOSIS: Comment Normal [facility] Comment on above: Result Comment: NEGA TIVE FOR INTRAEPITHELIAL LESION OR MALIGNANCY. Performed at: [facility] Performed By: #### G TT3P #### [facility] [address] [address] [address] Isi Forbes HPV Aptima Negative Normal Negative [facility] Comment on above: Result Comment: This nucleic acid amplification test detects fourteen high-risk HPV types (16,18,31,33,35,39,45,51,52,56,58,59,66,68) without differentiation. Performed at: =G Performed By: #### G TT3P #### [facility] [address] [address] [address] Isi Forbes HPV Genotype Reflex Comment Normal [facility] Comment on above: Result Comment: Crit eria not met, HPV Genotype not performed. Performed at: [facility] Performed By: #### G TT3P #### [facility] [address] [place] [address] Dr. Isi Forbes Methodology: Comment Normal [facility] Comment on above: Result Comment: This liquid based ThinPrep(R) pap test was screened with the use of an image guided system. Performed at: WB Performed By: #### G TT3P #### [facility] [address] [place] [address] Dr. Isi Forbes Note: Comment Normal [facility] Comment on above: Result Comment: [...] WB Performed By: #### G TT3P #### [facility] [address] [place] [address] Dr. Isi Forbes Performed by: Comment Normal [facility] Comment on above: Result Comment: Mikki Good, Senior Laboratory Technician (ASCP) Performed at: [facility] Performed By: #### G TT3P #### [facility] [address] [place] [address] Dr. Isi Forbes Specimen adequacy: Comment Normal [facility] Comment on above: Result Comment: Sati sfactory for evaluation. Endocervical and/or squamous metaplastic cells (endocervical component) are present. Performed at: [facility] Performed By: #### G TT3P #### [facility] [address] [place] [address] Dr. Isi Forbes CHLAMYDIA/GONOCOCCUS SARA (SW AB/URINE/PAPon 07-23-2022 Chlamydia trachomatis, SARA Negative Normal Negative [facility] Comment on above: Performed By: #### C BC #### [facility] [address] [place] [address] Dr. Isi Forbes Neisseria gonorrhoeae, SARA Negative Normal Negative [facility] Comment on above: Performed By: #### C BC #### [facility] [address] [place] [address] Dr. Isi Forbes CBC AUTO DIFFon 06-16-2022 BASO # 0.1 103/ul Normal 0.0-0.1 [facility] Comment on above: Performed By: #### G TT3P #### [facility] [address] [place] [address] Dr. Isi Forbes Basophils/100 WBC (Bld) 0.5 % Normal 0.2-2.0 [facility] Comment on above: Performed By: #### G TT3P #### [facility] [address] [address] [address] Isi Forbes EO # 0.1 103/ul Normal 0.0-0.7 [facility] Comment on above: Performed By: #### G TT3P #### [facility] [address] [place] [address] Dr. Isi Forbes Eosinophils/100 WBC (Bld) 1.2 % Normal 0.9-7.0 [facility] Comment on above: Performed By: #### G TT3P #### [facility] [address] [place] [address] Dr. Isi Forbes Erythrocyte distribution width (RBC) [Ratio] 12.7 % Normal 11.0-15.0 [facility] Comment on above: Performed By: #### G TT3P #### [facility] [address] [place] [address] Dr. Isi Forbes Hematocrit (Bld) [Volume fraction] 33.0 % Critically low 36.0-48.0 [facility] Comment on above: Performed By: #### G TT3P #### [facility] [address] [place] [address] Dr. Isi Forbes Hemoglobin (Bld) [Mass/Vol] 11.3 g/dL Critically low 12.0-16.0 [facility] Comment on above: Performed By: #### G TT3P #### [facility] [address] [place] [address] Dr. Isi Forbes IG # 0.06 10e3/ul Critically high 0.00-0.03 [facility] Comment on above: Performed By: #### G TT3P #### [facility] [address] [place] [address] Dr. Isi Forbes IG % 0.6 % Critically high 0.0-0.5 [facility] Comment on above: Performed By: #### G TT3P #### [facility] [address] [place] [address] Dr. Isi Forbes LYMPH # 2.0 103/ul Normal 1.2-3.[address] [facility] Comment on above: Performed By: #### G TT3P #### [facility] [address] [place] [address] Dr. Isi Forbes Lymphocytes/100 WBC (Bld) 20.0 % Critically low 20.5-60.0 [facility] Comment on above: Performed By: #### G TT3P #### [facility] [address] [place] [address] Dr. Isi Forbes MANUAL DIFF REQ NO Normal [facility] Comment on above: Performed By: #### G TT3P #### [facility] [address] [place] [address] Dr. Isi Forbes MCH (RBC) [Entitic mass] 31.1 pg Normal 26.7-34.0 [facility] Comment on above: Performed By: #### G TT3P #### [facility] [address] [place] [address] Dr. Isi Forbes MCHC (RBC) [Mass/Vol] 34.2 g/dL Normal 29.9-35.[address] [facility] Comment on above: Performed By: #### G TT3P #### [facility] [address] [place] [address] Dr. Isi Forbes MCV (RBC) [Entitic vol] 90.9 fL Normal 81.0-99.[address] [facility] Comment on above: Performed By: #### G TT3P #### [facility] [address] [place] [address] Dr. Isi Forbes MONO # 0.6 103/ul Normal 0.3-0.[address] [facility] Comment on above: Performed By: #### G TT3P #### [facility] [address] [place] [address] Dr. Isi Forbes Monocytes/100 WBC (Bld) 6.0 % Normal 1.7-12.[address] [facility] Comment on above: Performed By: #### G TT3P #### [facility] [address] [place] [address] Dr. Isi Forbes NEUT # 7.2 103/ul Critically high 1.4-6.5 [facility] Comment on above: Performed By: #### G TT3P #### [facility] [address] [place] [address] Dr. Isi Forbes Neutrophils/100 WBC (Bld) 71.7 % Normal 43.0-75.[address] [facility] Comment on above: Performed By: #### G TT3P #### [facility] [address] [place] [address] Dr. Isi Forbes Platelet mean volume (Bld) [Entitic vol] 9.5 fL Normal 9.5-13.[address] [facility] Comment on above: Performed By: #### G TT3P #### [facility] [address] [place] [address] Dr. Isi Forbes PLT 244 103/ul Normal 150-[address] [facility] Comment on above: Performed By: #### G TT3P #### [facility] [address] [place] [address] Dr. Isi Forbes RBC 3.63 106/ul Critically low 4.20-5.40 [facility] Comment on above: Performed By: #### G TT3P #### [facility] [address] [place] [address] Dr. Isi Forbes WBC 10.0 103/ul Normal 4.0-11.[address] [facility] Comment on above: Performed By: #### G TT3P #### [facility] [address] [place] [address] Dr. Isi Forbes ER URINE PROFILEon 2 Bilirubin Ql (U) Negative Normal NEGATIVE [facility] Comment on above: Performed By: #### G TT3P #### [facility] [address] [place] [address] Dr. Isi Forbes Clarity (U) CLEAR Normal CLEAR [facility] Comment on above: Performed By: #### G TT3P #### [facility] [address] [place] [address] Dr. Isi Forbes Color (U) LT. YELLOW Normal YELLOW [facility] Comment on above: Performed By: #### G TT3P #### [facility] [address] [place] [address] Dr. Isi Forbes ERUAHD A micrscopic examination will be performed if indicated. Normal [facility] Comment on above: Performed By: #### G TT3P #### [facility] [address] [place] [address] Dr. Isi Forbes Glucose Ql (U) Negative Normal NEGATIVE [facility] Comment on above: Performed By: #### G TT3P #### [facility] [address] [place] [address] Dr. Isi Forbes Hemoglobin Ql (U) Negative Normal NEGATIVE [facility] Comment on above: Performed By: #### G TT3P #### [facility] [address] [place] [address] Dr. Isi Forbes Ketones Ql (U) Negative Normal NEGATIVE [facility] Comment on above: Performed By: #### G TT3P #### [facility] [address] [place] [address] Dr. Isi Forbes LEUKOCYTES TRACE Abnormal NEGATIVE [facility] Comment on above: Performed By: #### G TT3P #### [facility] [address] [place] [address] Dr. Isi Forbes Nitrite Ql (U) Negative Normal NEGATIVE [facility] Comment on above: Performed By: #### G TT3P #### [facility] [address] [place] [address] Dr. Isi Forbes pH (U) 7.0 [pH] Normal 5-[address] [facility] Comment on above: Performed By: #### G TT3P #### [facility] [address] [place] [address] Dr. Isi Forbes SPEC GRAVITY 1.020 Normal 1.005-<=1.025 [facility] Comment on above: Performed By: #### G TT3P #### [facility] [address] [address] [address] Isi Forbes UA PROTEIN Negative Normal NEGATIVE/ TRACE [facility] Comment on above: Performed By: #### G TT3P #### [facility] [address] [address] [address] Isi Forbes UR MICRO IND INDICATED Normal [facility] Comment on above: Performed By: #### G TT3P #### [facility] [address] [place] [address] Dr. Isi Forbes Urobilinogen Qn (U) 0.2 {Barb'U}/dL Normal 0.2 - 1. 0 [facility] Comment on above: Performed By: #### G TT3P #### [facility] [address] [place] [address] Dr. Isi Forbes PROF CHEM 8 (BAS METB)on Anion gap [Moles/Vol] 11.8 mmol/L Normal [facility] Comment on above: Performed By: #### G TT3P #### [facility] [address] [place] [address] Dr. Isi Forbes Calcium [Mass/Vol] 8.8 mg/dL Normal 8.5-10.1 [facility] Comment on above: Performed By: #### G TT3P #### [facility] [address] [place] [address] Dr. Isi Forbes Chloride [Moles/Vol] 102 mmol/L Normal 98-107 [facility] Comment on above: Performed By: #### G TT3P #### [facility] [address] [address] [address] Isi Forbes CO2 [Moles/Vol] 26.9 mmol/L Normal 21.0-32.0 [facility] Comment on above: Performed By: #### G TT3P #### [facility] [address] [place] [address] Dr. Isi Forbes Creatinine [Mass/Vol] 0.42 mg/dL Critically low 0.55-1.02 [facility] Comment on above: Performed By: #### G TT3P #### [facility] [address] [address] [address] Isi Forbes EGFR-AF SLOVENIAN >60 Normal >=60 [facility] Comment on above: Performed By: #### G TT3P #### [facility] [address] [address] [address] Isi Forbes EGFR-NON AF SLOVENIAN >60 Normal >=60 [facility] Comment on above: Performed By: #### G TT3P #### [facility] [address] [address] [address] Isi Forbes Glucose [Mass/Vol] 86 mg/dL Normal 74-106 [facility] Comment on above: Performed By: #### G TT3P #### [facility] [address] [address] [address] Isi Forbes Potassium [Moles/Vol] 3.7 mmol/L Normal 3.5-5.1 [facility] Comment on above: Performed By: #### G TT3P #### [facility] [address] [address] [address] Isi Forbes Sodium [Moles/Vol] 137 mmol/L Normal 136-145 [facility] Comment on above: Performed By: #### G TT3P #### [facility] [address] [address] [address] Isi Forbes Urea nitrogen [Mass/Vol] 9.0 mg/dL Normal 7.0-18.0 [facility] Comment on above: Performed By: #### G TT3P #### [facility] [address] [address] [address] Isi Forbes Urea nitrogen/Creatinine [Mass ratio] 21.4 mg/mg Normal [facility] Comment on above: Performed By: #### G TT3P #### [facility] [address] [address] [address] Isi Forbes URINE MICROSCOPIC ONLYon BACTERIA TRACE Abnormal NONE SEEN [facility] Comment on above: Performed By: #### C BC #### [facility] [address] [place] [address] Dr. Isi Forbes Bacteria identified Cx Nom (U) NOT INDICATED Normal [facility] Comment on above: Performed By: #### C BC #### [facility] [address] [place] [address] Dr. Isi Forbes CAST NONE SEEN Normal NONE SEEN [facility] Comment on above: Performed By: #### C BC #### [facility] [address] [place] [address] Dr. Isi Forbes Crystals LM Nom (Urine sed) NONE SEEN Normal NONE SEEN [facility] Comment on above: Performed By: #### C BC #### [facility] [address] [place] [address] Dr. Isi Forbes Epithelial cells LM Ql (Urine sed) MODERATE Abnormal NONE SEEN /RARE [facility] Comment on above: Performed By: #### C BC #### [facility] [address] [place] [address] Dr. Isi Forbes MUCOUS NONE SEEN Normal NONE SEEN [facility] Comment on above: Performed By: #### C BC #### [facility] [address] [place] [address] Dr. Isi Forbes RBC NONE SEEN Abnormal 0-[address] [facility] Comment on above: Performed By: #### C BC #### [facility] [address] [place] [address] Dr. Isi Forbes WBC 2-5 Abnormal NONE SEEN [facility] Comment on above: Performed By: #### C BC #### [facility] [address] [place] [address] Dr. Isi Forbes HEP B SURFACE ANTIGEN SCREEN on 06-05-2022 HBsAg Screen Negative Normal Negative [facility] Comment on above: Performed By: #### H BSANS #### [facility] [address] [place] [address] Dr. Isi Forbes HEPATITIS C VIRUS AB W/ REFL EX QUANTon 06-05-2022 HCV AB 0.1 s/co ratio Normal 0.0-0.9 [facility] Comment on above: Performed By: #### G TT3P #### [facility] [address] [place] [address] Dr. Isi Forbes Interpretation: Comment Normal [facility] Comment on above: Result Comment: Nega tive Not infected with HCV, unless recent infection is suspected or other evidence exists to indicate HCV infection. Performed By: #### G TT3P #### [facility] [facility] [address] [place] [address] Dr. Isi Forbes HIV 1 AND 2 WITH REFLEXon HIV Screen 4th Generation wRfx Non-Reactive Normal Non Reactive [facility] Comment on above: Result Comment: HIV Negative HIV-1/HIV-2 antibodies and HIV-1 p24 antigen were NOT detected. There is no laboratory evidence of HIV infection. Performed By: #### C BC #### [facility] [address] [place] [address] Dr. Isi Forbes RPR QUANTon 06-05-2022 Rapid Plasma Reagin, Quant Non-Reactive Normal NonRea<1:1 [facility] Comment on above: Result Comment: Plea se Note: This test does not meet current guidelines for screening and diagnosis of syphilis. This test is intended for following treatment response in patients being treated for syphilis infection. To screen for syphilis infection, a reflex cascade that includes both RPR and a treponema-specific assay should be utilized, such as Treponema pallidum (Syphilis) Screening [facility] (802746) or Rapid Plasma Reagin (RPR) Test With Reflex to Quantitative RPR and Confirmatory Treponema pallidum Antibodies (500515). Performed By: #### R PRQ #### [facility] [address] [place] [address] Dr. Isi Forbes RUBELLA AB IGGon 06-05-2022 Rubella Antibodies, IgG 6.87 index Normal Immune >0.99 [facility] Comment on above: Result Comment: Non- immune <0.90 Equivocal 0.90 - 0.99 Immune >0.99 Performed By: #### R PRQ #### [facility] [address] [place] [address] Dr. Isi Forbes CBC AUTO DIFFon 06-04-2022 BASO # 0.0 103/ul Normal 0.0-0.1 [facility] Comment on above: Performed By: #### C BC #### [facility] [address] [address] [address] Isi Forbes Basophils/100 WBC (Bld) 0.5 % Normal 0.2-2.0 [facility] Comment on above: Performed By: #### C BC #### [facility] [address] [address] [address] Isi Forbes EO # 0.1 103/ul Normal 0.0-0.[address] [facility] Comment on above: Performed By: #### C BC #### [facility] [address] [address] [address] Isi Forbes Eosinophils/100 WBC (Bld) 1.5 % Normal 0.9-7.0 [facility] Comment on above: Performed By: #### C BC #### [facility] [address] [place] [address] Dr. Isi Forbes Erythrocyte distribution width (RBC) [Ratio] 12.1 % Normal 11.0-15.0 [facility] Comment on above: Performed By: #### C BC #### [facility] [address] [place] [address] Dr. Isi Forbes Hematocrit (Bld) [Volume fraction] 35.3 % Critically low 36.0-48.0 [facility] Comment on above: Performed By: #### C BC #### [facility] [address] [place] [address] Dr. Isi Forbes Hemoglobin (Bld) [Mass/Vol] 12.2 g/dL Normal 12.0-16.0 [facility] Comment on above: Performed By: #### C BC #### [facility] [address] [place] [address] Dr. Isi Forbes IG # 0.03 10e3/ul Normal 0.00-0.03 [facility] Comment on above: Performed By: #### C BC #### [facility] [address] [place] [address] Dr. Isi Forbes IG % 0.3 % Normal 0.0-0.[address] [facility] Comment on above: Performed By: #### C BC #### [facility] [address] [place] [address] Dr. Isi Forbes LYMPH # 1.7 103/ul Normal 1.2-3.8 [facility] Comment on above: Performed By: #### C BC #### [facility] [address] [place] [address] Dr. Isi Forbes Lymphocytes/100 WBC (Bld) 20.1 % Critically low 20.5-60.0 [facility] Comment on above: Performed By: #### C BC #### [facility] [address] [place] [address] Dr. Isi Forbes MANUAL DIFF REQ NO Normal [facility] Comment on above: Performed By: #### C BC #### [facility] [address] [place] [address] Dr. Isi Forbes MCH (RBC) [Entitic mass] 30.7 pg Normal 26.7-34.0 [facility] Comment on above: Performed By: #### C BC #### [facility] [address] [place] [address] Dr. Isi Forbes MCHC (RBC) [Mass/Vol] 34.6 g/dL Normal 29.9-35.2 [facility] Comment on above: Performed By: #### C BC #### [facility] [address] [place] [address] Dr. Isi Forbes MCV (RBC) [Entitic vol] 88.9 fL Normal 81.0-99.0 [facility] Comment on above: Performed By: #### C BC #### [facility] [address] [place] [address] Dr. Isi Forbes MONO # 0.5 103/ul Normal 0.3-0.[address] [facility] Comment on above: Performed By: #### C BC #### [facility] [address] [place] [address] Dr. Isi Forbes Monocytes/100 WBC (Bld) 5.4 % Normal 1.7-12.[address] [facility] Comment on above: Performed By: #### C BC #### [facility] [address] [address] [address] Isi Forbes NEUT # 6.2 103/ul Normal 1.4-6.5 [facility] Comment on above: Performed By: #### C BC #### [facility] [address] [place] [address] Dr. Isi Forbes Neutrophils/100 WBC (Bld) 72.2 % Normal 43.0-75.0 [facility] Comment on above: Performed By: #### C BC #### [facility] [address] [place] [address] Dr. Isi Forbes Platelet mean volume (Bld) [Entitic vol] 9.4 fL Critically low 9.5-13.5 [facility] Comment on above: Performed By: #### C BC #### [facility] [address] [place] [address] Dr. Isi Forbes PLT 257 103/ul Normal 150-[address] [facility] Comment on above: Performed By: #### C BC #### [facility] [address] [place] [address] Dr. Isi Forbes RBC 3.97 106/ul Critically low 4.20-5.40 [facility] Comment on above: Performed By: #### C BC #### [facility] [address] [place] [address] Dr. Isi Forbes WBC 8.6 103/ul Normal 4.0-11.0 [facility] Comment on above: Performed By: #### C BC #### [facility] [address] [place] [address] Dr. Isi Forbes CULTURE URINEon 06-04-2022 CULTURE URINE Culture Observations : LIGHT GROWTH OF MIXED GENITAL ALOK. NO POTENTIAL PATHOGENS SEEN. Normal [facility] Comment on above: Performed By: #### U RCX #### [facility] [address] [place] [address] Dr. Isi Forbes DRUG SCREEN RAPID (URINE)on 06-04-2022 AMP Negative Normal NEGATIVE [facility] Comment on above: Performed By: #### G TT3P #### [facility] [address] [place] [address] Dr. Isi Forbes BAR Negative Normal NEGATIVE [facility] Comment on above: Performed By: #### G TT3P #### [facility] [address] [place] [address] Dr. Isi Forbes BUP Negative Normal NEGATIVE [facility] Comment on above: Performed By: #### G TT3P #### [facility] [address] [place] [address] Dr. Isi Forbes BZO Negative Normal NEGATIVE [facility] Comment on above: Performed By: #### G TT3P #### [facility] [address] [place] [address] Dr. Isi Forbes BEATA Negative Normal NEGATIVE [facility] Comment on above: Performed By: #### G TT3P #### [facility] [address] [place] [address] Dr. Isi Forbes CUT-OFFS SEE BELOW Normal [facility] Comment on above: Result Comment: [...] ng/mL Performed By: #### G TT3P #### [facility] [address] [place] [address] Dr. Isi Forbes DRUG CUT HEADER DRUG CLASS TEST SYSTEM CUT-OFF CONCENTRATIONS ARE FOLLOWS: Normal [facility] Comment on above: Performed By: #### G TT3P #### [facility] [address] [place] [address] Dr. Isi Forbes mAMP Negative Normal NEGATIVE [facility] Comment on above: Performed By: #### G TT3P #### [facility] [address] [place] [address] Dr. Isi Forbes MTD Negative Normal NEGATIVE [facility] Comment on above: Performed By: #### G TT3P #### [facility] [address] [place] [address] Dr. Isi Forbes OPI Negative Normal NEGATIVE [facility] Comment on above: Performed By: #### G TT3P #### [facility] [address] [place] [address] Dr. Isi Forbes OXY Negative Normal NEGATIVE [facility] Comment on above: Performed By: #### G TT3P #### [facility] [address] [address] [address] Isi Forbes PCP Negative Normal NEGATIVE [facility] Comment on above: Performed By: #### G TT3P #### [facility] [address] [place] [address] Dr. Isi Forbes PPX Negative Normal NEGATIVE [facility] Comment on above: Performed By: #### G TT3P #### [facility] [address] [place] [address] Dr. Isi Forbes TCA Negative Normal NEGATIVE [facility] Comment on above: Performed By: #### G TT3P #### [facility] [address] [place] [address] Dr. Isi Forbes THC Positive Abnormal NEGATIVE [facility] Comment on above: Performed By: #### G TT3P #### [facility] [address] [place] [address] Dr. Isi Forbes GLYCOHEMOGLOBIN A1Con 2021 ADA RECOMMENDATION SEE BELOW Normal [facility] Comment on above: Result Comment: ADA RECOMMENDED LIMIT 4.0 - 6.0 ADA THERAPEUTIC TARGET < 7.0 ACTION SUGGESTED > 7.0 Performed By: #### A 1C #### [facility] [address] [place] [address] Dr. Isi Forbes Glucose [Mass/Vol] 111 mg/dL Normal [facility] Comment on above: Performed By: #### A 1C #### [facility] [address] [place] [address] Dr. Isi Forbes HbA1c (Bld) [Mass fraction] 5.5 % Normal 4.5-6.2 [facility] Comment on above: Performed By: #### A 1C #### [facility] [address] [place] [address] Dr. Isi Forbes AUTUMN BOX TEST PT SEND OUTo n 06-04-2022 SENT TO REF LAB 06/04/2022 Normal [facility] Comment on above: Performed By: #### R PRQ #### [facility] [address] [place] [address] Dr. Isi Forbes TYPE AND SCREENon 06-04-2022 TYPE AND SCREEN Negative Normal [facility] Comment on above: Performed By: #### T NS #### [facility] [address] [place] [address] Dr. Isi Forbes US PREG TVon 05-18-2022 [...] FREDY DICK Date: 2022-05-18 05:[address] [facility] HCG,Urineon 11-04-2020 Beta HCG ( test) Ql (U) Negative Normal [facility] Comment on above: Result Comment: PERF ORMED BY: [facility] [address] [place] [address] PATHOLOGIST SUPERVISOR ADVICE MIKE LECHUGA M.D. Performed By: #### U HCG #### [facility] [address] [place] [address] [place] Yassine 11-04-2020 L - -------- Specimen: Received: 11/04/20 Status: PRASAD Nick Num: [id number] Spec Type: Surgical Subm Dr: Esequiel Lyles MD Tissues: A Duodenum - Biopsy (DUODENAL BX) Procedures: HE Stain/2, Gross/Micro L4 -------- Patient Age/Sex Location Account Attending Physician -------- Debbi Prado/F [id number] Esequiel Lyles MD -------- SPEC NUM: RECD: 11/04/20 STATUS: PRASAD NICK NUM: [id number] LADAN: 11/04/[address] [facility] [address]: Esequiel Lyles MD ENTERED: 11/04/[address] [facility] DR: SPEC TYPE: Surgical DEPT: S ORDERED: [...] support the above pathologic diagnosis. -------- Specimen: [id number] Received: 11/04/20 Status: PRASAD Nick Num: [id number] Spec Type: Surgical Subm Dr: Esequiel Lyles MD Tissues: A Duodenum - Biopsy (DUODENAL BX) Procedures: HE Stain/2, Gross/Micro L4 -------- Patient: Debbi Prado [id number] (Continued) -------- Specimen: Received: 11/04/20 (Continued) Signed (signature on file) Rhys Mckenzie MD 11/05/20 1050 -------- Specimen: Received: 11/04/20 Status: PRASAD Nick Num: [id number] Spec Type: Surgical Subm Dr: Esequiel Lyles MD Tissues: A Duodenum - Biopsy (DUODENAL BX) Procedures: PAULINO Stain/2, Gross/Micro L4 -------- Patient: Debbi Prado [id number] (Continued) -------- Specimen: Received: 11/04/20 (Continued) CPT Codes 90727 -------- -------- Specimen: Received: 11/04/20 Status: PRASAD Sandoval Num: [id number] Spec Type: Surgical Subm Dr: Esequiel Lyles MD Tissues: A Duodenum - Biopsy (DUODENAL BX) Procedures: HE Stain/2, Gross/Micro L4 -------- Patient: Debbi Prado [id number] (Continued) -------- Signed (signature on file) Rhys Mckenzie MD 11/05/20 1050 Normal [facility] SARS-CoV-2 (COVID-19) RNA SARA+probe Ql (Unsp spec) Negative Normal Negative [facility] Comment on above: Order Comment: Dona hcare Worker?: N Result Comment: Refe rence: Negative Testing for SARS-CoV-2 by RT-PCR This test was developed and its performance characteristics determined by [employer]) and validated at the [facility]. This test has not been [...] is terminated or revoked sooner. PERFORMED BY: [place] [address] PATHOLOGIST SUPERVISOR ADVICE MIKE LECHUGA M.D. Performed By: #### C OVID-19 [facility] #### [address] Coding Summaryon 05-26-2020 Coding Summary CODING DATE: 05/26/2020 [facility] STATUS: Home PAYOR: [employer] ADMIT [...] Ashleigh Posada Date Saved: 05/26/2020 08:[address] [facility] Consent Formson 05-26-2020 Consent Forms [id number] [facility] Provider Orderson 05-26-2020 Provider Orders [id number] .00OTGTIFF Normal [facility] 2019 Novel Coronavirus (CoVI D-19), SARA LCon 05-24-2020 SARS-CoV-2, SARA (COVID-19) LC Not Detected Not Detected [facility] Comment on above: Order Comment: [id number] [phone] Result Comment: This nucleic acid amplification test was developed and its performance characteristics determined by [employer]. Nucleic acid amplification tests include PCR and [...] detected) result in this assay. Performed At: [facility] [address] [place] [address] [place] [id number] Rere Bejarano MD Ph:[phone] Performed By: #### 6 [id number] ####[facility] (DEFAULT)[address] [place] [address] Progress Note - Nurseon 0 Progress Note - Nurse Nasal swab perform ed without complication. Patient tolerated well. Education given. Patient verbalized understanding. [Electronically Signed on: 05/22/2020 11:25 EST] Genesis Ndiaye RN [Verified on: 05/22/2020 11:25 EST] Genesis Ndiaye RN [facility] Ambulatory Clinical Summaryo n 04-11-2020 Ambulatory Clinical Summary {[id number] [facility] Coding Summaryon 02-21-2020 Coding Summary CODING DATE: 02/21/2020 [facility] STATUS: Home PAYOR: [employer] ADMIT [...] Ashleigh Posada Date Saved: 02/21/2020 02:[address] [facility] Consent Formson 02-18-2020 Consent Forms [id number] [facility] 2019 Novel Coronavirus (CoVI D-19), SARA LCon 02-16-2020 SARS-CoV-2, SARA (COVID-19) LC Not Detected Not Detected [facility] Comment on above: Result Comment: This test was developed and its performance characteristics determined by [employer]. This test has not been FDA cleared [...] detected) result in this assay. Performed At: [email or web address] [address] [facility] [facility] [place] [id number] Rere Bejarano MD Ph:[phone] Performed By: #### 6 [id number] ####[facility] (DEFAULT)[address] [place] [address] Provider Orderson 02-15-2020 Provider Orders [id number] [facility] Provider Orderson 02-14-2020 Provider Orders [id number]#1 [facility], Quant.on 02-13-2020 IgA [Mass/Vol] 202 mg/dL 87-352 [facility] Comment on above: Result Comment: Perf ormed at: [facility] [id number] [place], [place] [id number] PhD Dennis Toussaint Performed By: #### 2 583745, 4984651, 46856275, 9702167, 41074588, 91935738, 42271360 ####[facility] [address] [place] [address] t-TRANSGLUTAMINASE IgAon tTG IgA Qn (S) <2 0-3 [facility] Comment on above: Result Comment: Nega tive 0 - 3 Weak Positive 4 - 10 Positive >10 Tissue Transglutaminase (tTG) has been identified as the endomysial antigen. Studies have demonstr- ated that endomysial IgA antibodies have over 99% specificity for gluten sensitive enteropathy. Performed at: [facility] [place] [address] [place], [place] [id number] PhD Dennis Toussaint Performed By: #### 2 110081, 8238098, 09908862, 7659566, 37304597, 32944665, 78667937 #### [facility] [address] [place] [address] Coding Summary.on 02-12-2020 Coding Summary. 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 Performed By: #### 2 563642, 9423714, 52043775, 8364270, 60207619, 28888094, 91037377 #### [facility] [address] [place] [address] Basophils/Leukocytes Auto (Bld) [Pure # fraction] 0.0 E9/L Normal 0.0-0.2 [facility] Comment on above: Order Comment: Order Added by Discern Expert. Performed By: #### 2 959823, 3842828, 91543345, 0115366, 46850355, 40547753, 60903606 #### [facility] [address] [place] [address] Eosinophils/100 WBC (Bld) 1.7 % Normal 0.0-8.0 [facility] Comment on above: Order Comment: Order Added by Discern Expert. Performed By: #### 2 494252, 4930606, 09240181, 4163006, 23631938, 16132130, 01785551 #### [facility] [address] [place] [address] Eosinophils/Leukocyte s Auto (Bld) [Pure # fraction] 0.2 E9/L Normal 0.0-0.5 [facility] Comment on above: Order Comment: Order Added by Discern Expert. Performed By: #### 2 588454, 8491902, 06074718, 6274910, 80762838, 27688403, 52049133 #### [facility] [address] [place] [address] Lymphocytes/100 WBC (Bld) 21.9 % Normal 14.0-50.0 [facility] Comment on above: Order Comment: Order Added by Lila Expert. Performed By: #### 2 613489, 8788650, 30446669, 2399989, 80661630, 64397256, 53121113 #### [facility] [address] [place] [address] Lymphocytes/Leukocyte s Auto (Bld) [Pure # fraction] 2.0 E9/L Normal 1.0-4.0 [facility] Comment on above: Order Comment: Order Added by Discern Expert. Performed By: #### 2 014020, 2869618, 42575150, 7440196, 20120699, 77045131, 80172837 #### [facility] [address] [place] [address] Monocytes/100 WBC (Bld) 7.6 % Normal 4.0-14.0 [facility] Comment on above: Order Comment: Order Added by Discern Expert. Performed By: #### 2 802810, 1581070, 78008372, 3383339, 37212418, 89909214, 83739175 #### [facility] [address] [place] [address] Monocytes/Leukocytes Auto (Bld) [Pure # fraction] 0.7 E9/L Normal 0.2-1.0 [facility] Comment on above: Order Comment: Order Added by Lila Expert. Performed By: #### 2 761374, 0575461, 72974120, 0480396, 18175413, 75838551, 69421278 #### [facility] [address] [place] [address] Neutrophils/100 WBC (Bld) 68.3 % Normal 36.0-75.0 [facility] Comment on above: Order Comment: Order Added by Discern Expert. Performed By: #### 2 317035, 4991256, 58588660, 3572654, 35707725, 29653944, 34850094 #### [facility] [address] [place] [address] Neutrophils/Leukocyte s Auto (Bld) [Pure # fraction] 6.2 E9/L Normal 2.0-7.5 [facility] Comment on above: Order Comment: Order Added by Discern Expert. Performed By: #### 2 039276, 1607777, 35805171, 0409083, 29734609, 13889771, 66263537 #### [facility] [address] [place] [address] CBC w/ Auto Diffon 0 Erythrocyte distribution width (RBC) [Ratio] 13.1 % Normal 10.9-14.2 [facility] Comment on above: Performed By: #### 2 322273, 0941897, 45111526, 4509274, 40126071, 58002886, 69043345 #### [facility] [address] [place] [address] Hematocrit (Bld) [Volume fraction] 41.8 % Normal 34.0-46.0 [facility] Comment on above: Performed By: #### 2 277359, 4217650, 85261651, 4098583, 61087646, 09017542, 61598770 #### [facility] [address] [place] [address] Hemoglobin (Bld) [Mass/Vol] 13.9 g/dL Normal 12.0-16.0 [facility] Comment on above: Performed By: #### 2 466051, 0836145, 43497423, 3241609, 60151122, 31497437, 24768697 #### [facility] [address] [place] [address] MCH (RBC) [Entitic mass] 30.7 pg Normal 27.0-34.0 [facility] Comment on above: Performed By: #### 2 434618, 2845864, 73213957, 5253972, 29151039, 41757962, 88256057 #### [facility] [address] [place], [place] [address] MCHC (RBC) [Mass/Vol] 33.4 g/dL Normal 31.4-36.0 [facility] Comment on above: Performed By: #### 2 292905, 5115311, 31097075, 7402489, 38443935, 75845510, 37205649 #### [facility] [address] [place], [place] [address] MCV (RBC) [Entitic vol] 92.1 fL Normal 80.0-100.0 [facility] Comment on above: Performed By: #### 2 388996, 6741739, 70626237, 4475660, 63030694, 98976012, 89500193 #### [facility] [address] [place], [place] [address] Platelet mean volume (Bld) [Entitic vol] 7.7 fL Normal 6.4-10.8 [facility] Comment on above: Performed By: #### 2 404837, 4980729, 45068955, 5881483, 56149934, 96058017, 71379584 #### [facility] [address] [place] [address] Platelets (Bld) [#/Vol] 338.0 E9/L Normal 150.0-500.0 [facility] Comment on above: Performed By: #### 2 954798, 0950890, 99982896, 4473144, 65564484, 43959542, 99924279 #### [facility] [address] [place] [address] RBC (Bld) [#/Vol] 4.5 E12/L Normal 4.3-5.9 [facility] Comment on above: Performed By: #### 2 788213, 8931734, 53230474, 2243001, 21474353, 43176394, 41290806 #### [facility] [address] [address] WBC corrected for nucl RBC Auto (Bld) [#/Vol] 9.1 E9/L Normal 4.0-11.0 [facility] Comment on above: Performed By: #### 2 665530, 4912001, 88221051, 4761568, 01907733, 50903899, 89607092 #### [facility] [address] [place] [address] CMPon 02-11-2020 Albumin [Mass/Vol] 1.4 g/dL Normal 1.1-2.2 [facility] Comment on above: Performed By: #### 2 426231, 2031663, 43189876, 7191114, 86550586, 75815316, 96054904 #### [facility] [address] [place] [address] Albumin [Mass/Vol] 4.5 g/dL Normal 3.3-5.0 [facility] Comment on above: Performed By: #### 2 166330, 2685234, 10389671, 6627886, 25351998, 18130759, 41926376 #### [facility] [address] [place] [address] ALP [Catalytic activity/Vol] 58 Int._Unit/L Normal 21-98 [facility] Comment on above: Performed By: #### 2 042340, 2390724, 30455440, 4108452, 21388056, 78456942, 67575012 #### [facility] [address] [place] [address] ALT No additional P-5'-P [Catalytic activity/Vol] 33 Int._Unit/L Normal 6-46 [facility] Comment on above: Performed By: #### 2 114063, 6942493, 14334477, [id number], [id number], [id number], [id number] #### [facility] [address] [place] [address] Anion gap [Moles/Vol] 12 mmol/L Normal 6-16 [facility] Comment on above: Performed By: #### 2 374497, 4952518, 13578362, 8101816, 50245294, 16232854, 10322620 #### [facility] [address] [place] [address] AST [Catalytic activity/Vol] 22 Int._Unit/L Normal 5-43 [facility] Comment on above: Performed By: #### 2 178653, 9735594, 78346864, 7260649, 79631812, 85627586, 68754159 #### [facility] [address] [place] [id number] Bilirubin [Mass/Vol] 0.5 mg/dL Normal 0.0-1.1 [facility] Comment on above: Performed By: #### 2 680594, 6387785, 83400040, 8017184, 91240686, 55744082, 72118825 #### [facility] [address] [place] 2038857 Calcium [Mass/Vol] 9.2 mg/dL Normal 8.9-11.1 [facility] Comment on above: Performed By: #### 2 963841, 0962717, 42465128, 4484400, 93007051, 56876590, 06216505 #### [facility] [address] [place] [address] Chloride [Moles/Vol] 106 mmol/L Normal 101-111 [facility] Comment on above: Performed By: #### 2 930955, 6564035, 72227059, 3749022, 89469963, 94533060, 02246248 #### [facility] [address] [place] [address] CO2 [Moles/Vol] 23 mmol/L Normal 21-31 [facility] Comment on above: Performed By: #### 2 076132, 2656686, 63415135, 2787785, 29326597, 51317516, 36557324 #### [facility] [address] [place] [address] Creatinine [Mass/Vol] 0.6 mg/dL Normal 0.5-1.3 [facility] Comment on above: Performed By: #### 2 264624, 1683099, 25541158, 5377290, 73902573, 88652854, 29034480 #### [facility] [address] [place] [address] Globulin (S) [Mass/Vol] 3.3 g/dL Normal 1.4-4.0 [facility] Comment on above: Performed By: #### 2 175234, 3601085, 27192261, 2899739, 99137052, 87942272, 50673185 #### [facility] [address] [place] [address] Glucose [Mass/Vol] 94 mg/dL Normal 55-199 [facility] Comment on above: Result Comment: If t his glucose result represents a fasting glucose, interpretation should refer to the following reference range: 55-99 mg/dL Performed By: #### 2 345606, 4046145, 17109522, 7521343, 15712417, 39575703, 89306194 #### [facility] [address] [place] [address] Potassium [Moles/Vol] 3.9 mmol/L Normal 3.5-5.3 [facility] Comment on above: Performed By: #### 2 725447, 8890962, 62732613, 8701574, 34742682, 40037945, 92769985 #### [facility] [address] [place] [address] Protein [Mass/Vol] 7.8 g/dL Normal 6.0-7.8 [facility] Comment on above: Performed By: #### 2 062700, 3515764, 91553500, 2918630, 01938582, 11861112, 33674288 #### [facility] [address] [place] [address] Sodium [Moles/Vol] 137 mmol/L Normal 135-145 [facility] Comment on above: Performed By: #### 2 679389, 6779763, 92764097, 4407305, 74128587, 09305736, 75946403 #### [facility] [address] [place] [address] Urea nitrogen [Mass/Vol] 12 mg/dL Normal 5-21 [facility] Comment on above: Performed By: #### 2 444790, 4617398, 71478797, 9999086, 01706148, 65942707, 97590468 #### [facility] [address] [place] [address] Urea nitrogen/Creatinine [Mass ratio] 20 No Units Normal 10-20 [facility] Comment on above: Performed By: #### 2 572786, 1907445, 24573149, 1281989, 98793259, 87875705, 43937982 #### [facility] [address] [place] [address] Coding Summaryon 02-11-2020 Coding Summary CODING DATE: 02/11/2020 [facility] STATUS: Home PAYOR: [employer] [place] ADMIT DX: REASON FOR VISIT DX: R19.7 [...] Akers Date Saved: 02/11/2020 08:49 am Normal [facility] Consent for Treatmenton 01-16 Consent for Treatment [id number] .00CD:127 Normal [facility] Gastroenterology Office/Clin ic Noteon 02-11-2020 Gastroenterology [...] q8hr, # 20 tab(s), Refills(s) 1, Pharmacy: [id number], 167.64, cm, 02/11/20 15:12:00 EDT, Height/Length [...] day(s), # 120 cap(s), Refills(s) 11, Pharmacy: [facility] #[id number], 167.64, cm, 02/11/20 15:12:00 EDT, Height/Length [...] day(s), # 20 tab(s), Refills(s) 0, Pharmacy: [facility]/pharmacy #[id number], 167.64, cm, 02/11/20 15:12:00 EDT, Height/Length Measured, 90.4, kg, 02/11/20 15:12:00 EDT, Weight Measured 6. Cyclic vomiting syndrome (R11.15: Cyclical vomiting syndrome unrelated to migraine) Advised to stop marijuana use Follow-up With When Contact Information Emma PARSONS MD Within 2 weeks [facility] [address], [place] [address]- Additional Instructions: Patient Education Nausea, [...] Family history is negative Normal [facility] Comment on above: Result Comment: Elec [...] Document Reviewed: 03/15/2012 ExitCare? Patient Information ?2013 [employer]. Normal [facility] Sed Rate Automatedon 020 ESR (Bld) [Velocity] 10 mm/h Normal 0-34 [facility] Comment on above: Performed By: #### 2 875273, 6812175, 98015764, 4124351, 43709352, 05451511, 89242479 #### [facility] [address] [place] [address] eGFRon 02-11-2020 GFR/1.73 sq M predicted among blacks MDRD (S/P/Bld) [Vol rate/Area] mL/min/{1.73_m2} Normal >=59 [facility] Comment on above: Order Comment: Order added by Discern Expert. Result Comment: eGFR is race adjusted. AA=. Performed By: #### 2 079951, 0735146, 54974375, 1437159, 41715469, 63833977, 91446169 #### [facility] [address] [place] [address] GFR/1.73 sq M predicted among non-blacks MDRD (S/P/Bld) [Vol rate/Area] mL/min/{1.73_m2} Normal >=59 [facility] Comment on above: Order Comment: Order added by Discern Expert. Result Comment: [employer] eulogio kidney disease could be indicated at eGFR's of less than 60 mL/min/1.73m2. Kidney failure is indicated at less than 15 mL/min/1.73m2. Performed By: #### 2 925612, 9969862, 01830360, 8380697, 32870744, 89220299, 11314029 #### [facility] [address] [place] [address] Historical Records Officeon 02-08-2020 Historical Records Office [id number]. 00CD:127 Normal [facility] - Immunology/Serology Re sultson 01-31-2020 Lab - Immunology/Serology Results [id number] Normal [facility] SARS-CoV-2 (COVID-19) PCRon 01-30-2020 COVID-19 PCR Not Detected Normal Not Detected [facility] Comment on above: Order Comment: Sent to [facility] Performed By: #### 6 [id number] ####[facility] (DEFAULT)[address] [place] [address] Provider Orderson 01-29-2020 Provider Orders [id number] .00OTGTIFF Normal [facility] Vital Signs Date Time Vital Sign Value Performing Clinician Cheryl colindres 06-20-2024 13:21-0500 Body mass index (BMI) [Ratio] 38.24 kg/m2 Yeni ISAAC Work Phone: [facility] 06-20-2024 13:21-0500 Body weight 104.24 kg Yeni ISAAC Work Phone: [facility] 06-20-2024 13:21-0500 Diastolic blood pressure 84 mm[Hg] Yeni ISAAC Work Phone: [facility] 06-20-2024 13:21-0500 Systolic blood pressure 132 mm[Hg] Yeni ISAAC Work Phone: [facility] 06-13-2024 13:42-0500 Body mass index (BMI) [Ratio] 36.96 kg/m2 Scott Tu DO Work Phone: [facility] 06-13-2024 13:42-0500 Body weight 100.75 kg Scott Tu DO Work Phone: [facility] 06-13-2024 13:42-0500 Diastolic blood pressure 76 mm[Hg] Scott Tu DO Work Phone: [facility] 06-13-2024 13:42-0500 Systolic blood pressure 128 mm[Hg] Scott Tu DO Work Phone: [facility] 05-30-2024 15:14-0500 Body mass index (BMI) [Ratio] 35.41 kg/m2 Yeni Scio PA Work Phone: [facility] 05-30-2024 15:14-0500 Body weight 96.53 kg Yeni Scio PA Work Phone: [facility] 05-30-2024 15:14-0500 Diastolic blood pressure 74 mm[Hg] Yeni Scio PA Work Phone: [facility] 05-30-2024 15:14-0500 Systolic blood pressure 116 mm[Hg] Yeni Scio PA Work Phone: [facility] 05-16-2024 14:28-0400 Body mass index (BMI) [Ratio] 33.78 kg/m2 Yeni Scio PA Work Phone: [facility] 05-16-2024 14:28-0400 Body weight 92.08 kg Yeni Puma PA Work Phone: [facility] 05-16-2024 14:28-0400 Diastolic blood pressure 72 mm[Hg] Yeni Scio PA Work Phone: [facility] 05-16-2024 14:28-0400 Systolic blood pressure 124 mm[Hg] Yeni Scio PA Work Phone: [facility] 05-02-2024 13:46-0400 Body mass index (BMI) [Ratio] 33.08 kg/m2 Yeni Puma PA Work Phone: [facility] 05-02-2024 13:46-0400 Body weight 90.17 kg Yeni ISAAC Work Phone: [facility] 05-02-2024 13:46-0400 Diastolic blood pressure 80 mm[Hg] Yeni ISAAC Work Phone: [facility] 05-02-2024 13:46-0400 Systolic blood pressure 118 mm[Hg] Yeni ISAAC Work Phone: [facility] Healthcare Encounters Encounter Date Encounter Type Care Provider Facility Start: 06-20-2024 End: 06-20-2024 Bamboo flowsheet Yeni ISAAC Work Phone: [facility] Start: 06-20-2024 End: 06-20-2024 Bamboo flowsheet Yeni ISAAC Work Phone: [facility] Start: 06-20-2024 End: 06-20-2024 flow sheet Yeni ISAAC Work Phone: [facility] Comment on above: Third trimester preg jade; 37 weeks gestation of ; Other insomnia Start: 06-13-2024 End: 06-13-2024 Bamboo flowsheet Scott Tu DO Work Phone: [facility] Start: 06-13-2024 End: 06-13-2024 Bamboo flowsheet Scott Tu DO Work Phone: [facility] Start: 06-13-2024 End: 06-13-2024 ambulatory SCOTT TU Not Available Start: 06-13-2024 End: 06-13-2024 flow sheet Scott Tu DO Work Phone: [facility] Comment on above: Anemia during pregna ncy in third trimester; Third trimester ; 36 weeks gestation of Start: 06-02-2024 End: 06-02-2024 Emergency department patient visit ASHLEE TORRES [facility] Start: 05-30-2024 End: 05-30-2024 ambulatory YENI [...] 05-16-2024 flow sheet Yeni ISAAC Work Phone: [facility] Comment on above: Third [...] Result Encounter Scott Tu DO Work Phone: [facility] External Department Unsolicited Start: 05-02-2024 End: 05-02-2024 Bamboo flowsheet Yeni ISAAC Work Phone: [facility] Start: 05-02-2024 End: 05-02-2024 Bamboo flowsheet Yeni ISAAC Work Phone: [facility] Start: 05-02-2024 End: 05-02-2024 ambulatory YENI CHANEY Not Available Start: 05-02-2024 End: 05-02-2024 flow sheet Yeni ISAAC Work Phone: [facility] Comment on above: Third [...] End: 01-21-2024 [facility] Start: 01-20-2024 End: 01-20-2024 Emergency department patient visit [facility] Start: 01-12-2024 End: 01-12-2024 ambulatory SCOTT TU [...] Work Phone: Start: 05-07-2024 [facility] UA (CLEAN/CATCH) 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 Scott Tu DO Work Phone: Start: 05-02-2024 Urnls dip stick/tabl et rgnt non-auto w/o micrscp Scott Tu DO Work Phone: Start: 12-09-2022 Extraction of Produc ts of Conception, Low Cervical, Open Approach DR MARIO MARTINEZ . Plan of Treatment Date Care Activity Detail Author Start: 06-27-2024 End: 06-27-2024 Patient encounter procedure 06/27/2024 2:00 PM EST Routine [facility] [address] [place] [id number] Tu Scott, DO [address] [place] [place], [place] [id number] [facility] Start: 06-20-2024 End: 06-20-2024 Patient encounter procedure 06/20/2024 1:10 PM EST Routine [facility] [address] [place] [address] Yeni Chaney PA [address] [place] [address] [facility] Start: 06-13-2024 End: 06-13-2025 Strep B DNA probe, amplification Strep B DNA probe, amplification Lab Routine Third trimester Expected: 06/13/2024 (Approximate), Expires: 06/13/2025 [facility] Work Phone: Comment on above: Expected: 06/13/2024 (Approximate), Expires: 06/13/2025 Start: 06-13-2024 End: 06-13-2024 Patient encounter procedure 06/13/2024 1:00 PM EST Routine [facility] [address] [place] [phone] Scott Mae DO [address] [place] [address] [facility] Start: 05-30-2024 End: 05-30-2024 Patient encounter procedure 05/30/2024 2:30 PM EST Routine [facility] [address] [place] [address] Yeni Chaney PA [address] [place] [address] [facility] Start: 05-16-2024 End: 05-16-2024 Patient encounter procedure [facility] Comment on above: Arrived Start: 05-16-2024 End: 05-16-2025 Alanine aminotransferase [Enzymatic activity/volume] in Serum or Plasma ALT Lab Routine induced hypertension, antepartum Expected: 05/16/2024 (Approximate), Expires: 05/16/2025 [facility] Comment on above: Expected: 05/16/2024 (Approximate), Expires: 05/16/2025 Start: 05-16-2024 End: 05-16-2025 Aspartate aminotransferase [Enzymatic activity/volume] in Serum or Plasma AST Lab Routine induced hypertension, antepartum Expected: 05/16/2024 (Approximate), Expires: 05/16/2025 [facility] Comment on above: Expected: 05/16/2024 (Approximate), Expires: 05/16/2025 Start: 05-16-2024 End: 05-16-2025 CBC W Auto Differential panel - Blood CBC and differential Lab Routine induced hypertension, antepartum Expected: 05/16/2024 (Approximate), Expires: 05/16/2025 [facility] Comment on above: Expected: 05/16/2024 (Approximate), Expires: 05/16/2025 Start: 05-16-2024 End: 05-16-2025 Creatinine [Mass/volume] in Serum or Plasma Creatinine Lab Routine induced hypertension, antepartum Expected: 05/16/2024 (Approximate), Expires: 05/16/2025 [facility] Work Phone: Comment on above: Expected: 05/16/2024 (Approximate), Expires: 05/16/2025 Start: 05-16-2024 End: 05-16-2025 Lactate dehydrogenase [Enzymatic activity/volume] in Serum or Plasma by Lactate to pyruvate reaction Lactate dehydrogenase Lab Routine induced hypertension, antepartum Expected: 05/16/2024, Expires: 05/16/2025 [facility] Comment on above: Expected: 05/16/2024 , Expires: 05/16/2025 Start: 05-16-2024 End: 05-16-2025 Protein, urine, 24 hour Protein, urine, 24 hour Lab Routine induced hypertension, antepartum Expected: 05/16/2024 (Approximate), Expires: 05/16/2025 [facility] Comment on above: Expected: 05/16/2024 (Approximate), Expires: 05/16/2025 Start: 05-16-2024 End: 05-16-2025 Pt and ptt Pt and ptt Lab Routine induced hypertension, antepartum Expected: 05/16/2024, Expires: 05/16/2025 [facility] Comment on above: Expected: 05/16/2024 , Expires: 05/16/2025 Start: 05-16-2024 End: 05-16-2025 Urate [Mass/volume] in Serum or Plasma Uric acid Lab Routine induced hypertension, antepartum Expected: 05/16/2024 (Approximate), Expires: 05/16/2025 [facility] Comment on above: Expected: 05/16/2024 (Approximate), Expires: 05/16/2025 Start: 05-16-2024 End: 05-16-2025 Urea nitrogen [Mass/volume] in Serum or Plasma BUN Lab Routine induced hypertension, antepartum Expected: 05/16/2024, Expires: 05/16/2025 [facility] Comment on above: Expected: 05/16/2024 , Expires: 05/16/2025 Hemoglobin A1c/Hemoglobin.total in Blood Hemoglobin A1c Lab Routine induced hypertension, antepartum Ordered: 05/16/2024 [facility] Comment on above: Ordered: 05/16/2024 Payers Date Payer Category Payer Medicaid [id number] 2019 [facility] Member Subscriber Plan / Payer (Effective 2019-Present) Name: Debbi Praod Relation to Subscriber: Self Name: Debbi Prado Payer ID: Not on file Type: Not on file Address: [place] [id number] 1988 Unknown [id number] 2.16840.1.254463.3.579. 2.593 1988 Unknown [id number] 2.16.840.1.827010.3.579. 2.593 1988 Unknown [id number] 2.16.840.1.213422.3.579. 2.593 1988 Unknown [id number] 2.16.840.1.950073.3.579. 2.593 1988 Unknown [id number] 2.16.840.1.565109.3.579. 2.593 1988 Unknown [id number] 2.16.840.1.512152.3.579. 2.593 1988 Unknown [id number] 2.16.840.1.846108.3.579. 2.593 1988 Unknown [id number] 2.16.840.1.090670.3.579. 2.593 1988 Unknown [id number] 2.16.840.1.314014.3.579. 2.593 1988 Unknown [id number] 2.16.840.1.826783.3.579. 2.593 1988 Unknown [id number] 2.16.840.1.066141.3.579. 2.593 1988 Unknown [id number] 2.16.840.1.953564.3.579. 2.1286 1988 Unknown [id number] 2.16840.1.178281.3.579. 2.1286 1988 Unknown [id number] 2.16.840.1.785132.3.579. 2.1259 1988 Unknown [id number] 2.16840.1.261644.3.579. 2.1258 1988 Unknown [id number] 2.16840.1.165296.3.579. 2.9 1988 Unknown [id number] 2.840.1.436382.3.579. 2.1258 1988 Unknown [id number] 2.16840.1.608137.3.579. 2.9 1988 Unknown [id number] 2.16840.1.996921.3.579. 2.1258 1988 Unknown [id number] 2.840.1.405019.3.579. 2.9 1988 Unknown [id number] 2.840.1.289919.3.579. 2.1258 1988 Unknown [id number] 2.16840.1.096307.3.579. 2.9 1988 Unknown [id number] 2.16840.1.356190.3.579. 2.1258 1988 Unknown [id number] 2.16840.1.658127.3.579. 2.9 1988 Unknown [id number] 2.16840.1.110397.3.579. 2.1258 1988 Unknown [id number] 2.16840.1.267770.3.579. 2.1259 1988 Unknown [id number] 2.16.840.1.687734.3.579. 2.1259 1988 Unknown [id number] 2.16.840.1.514142.3.579. 2.1259 1988 Unknown [id number] 2.16.840.1.086565.3.579. 2.1259 1959 Self-pay [id number] 1959 Unknown [id number] Unknown [id number] 2.16.840.1.131138.3.579. 2.593 Social History Date Type Detail Facility Start: 06-13-2023 [facility] Start: 07-18-2006 End: 01-15-2021 [...] Problems Diagnosis Date Noted Bipolar 1 disorder ([facility]) 01/20/2023 Anxiety with depression 01/20/2023 Fatty liver 01/20/2023 Generalized anxiety disorder ([facility]) 01/20/2023 Irregular menses 01/20/2023 Irritable bowel syndrome with diarrhea 01/20/2023 Mild chronic gastritis 01/20/2023 Grief at loss of child ([facility]) 10/06/2023 Persistent depressive disorder ([facility]) 10/06/2023 Syncope 03/15/2024 Low-lying placenta 03/15/2024 Dizziness 03/15/2024 Dehydration 03/15/2024 Migraine without status migrainosus, not intractable ([facility]) 03/15/2024 Irregular uterine contractions 03/15/2024 Chronic fatigue 04/05/2024 Herpes Third trimester 06/20/2024 37 weeks gestation of 06/20/2024 Resolved Ambulatory Problems Diagnosis Date Noted No Resolved Ambulatory Problems Past Medical History: Diagnosis Date Bipolar disorder ([facility]) Depression ([facility]) IBS (irritable bowel syndrome) Marijuana use Panic attack ([facility]) PTSD (post-traumatic stress disorder) ([facility]) 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) Thyroid enlargement ([facility]) HISTORY PAST MEDICAL HISTORY SOCIAL HISTORY Past Medical History: Diagnosis Date Bipolar disorder ([facility]) Depression ([facility]) Fatty liver Herpes IBS (irritable bowel syndrome) Irritable bowel syndrome with diarrhea Marijuana use Mild chronic gastritis Panic attack ([facility]) PTSD (post-traumatic stress disorder) ([facility]) 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) Thyroid enlargement ([facility]) Social History Tobacco Use Smoking [...] routine OB appointment. documented in this encounter [facility] 06-13-2024 History of Presen t illness Narrative [...] Problems Diagnosis Date Noted Bipolar 1 disorder ([facility]) 01/20/2023 Anxiety with depression 01/20/2023 Fatty liver 01/20/2023 Generalized anxiety disorder ([facility]) 01/20/2023 Irregular menses 01/20/2023 Irritable bowel syndrome with diarrhea 01/20/2023 Mild chronic gastritis 01/20/2023 Grief at loss of child ([facility]) 10/06/2023 Persistent depressive disorder ([facility]) 10/06/2023 Syncope 03/15/2024 Low-lying placenta 03/15/2024 Dizziness 03/15/2024 Dehydration 03/15/2024 Migraine without status migrainosus, not intractable ([facility]) 03/15/2024 Irregular uterine contractions 03/15/2024 Chronic fatigue 04/05/2024 Herpes Resolved Ambulatory Problems Diagnosis Date Noted No Resolved Ambulatory Problems Past Medical History: Diagnosis Date Bipolar disorder ([facility]) Depression ([facility]) IBS (irritable bowel syndrome) Marijuana [...] nursing note reviewed. Exam conducted with a outside medical sales representative present. Vitals: Estimated body mass index is [...] Scott Mae DO documented in this encounter [facility] 05-30-2024 History of Presen t illness Narrative [...] Problems Diagnosis Date Noted Bipolar 1 disorder ([facility]) 01/20/2023 Anxiety with depression 01/20/2023 Fatty liver 01/20/2023 Generalized anxiety disorder ([facility]) 01/20/2023 Irregular menses 01/20/2023 Irritable bowel syndrome with diarrhea 01/20/2023 Mild chronic gastritis 01/20/2023 Grief at loss of child ([facility]) 10/06/2023 Persistent depressive disorder ([facility]) 10/06/2023 Syncope 03/15/2024 Low-lying placenta 03/15/2024 Dizziness 03/15/2024 Dehydration 03/15/2024 Migraine without status migrainosus, not intractable ([facility]) 03/15/2024 Irregular uterine contractions 03/15/2024 Chronic fatigue 04/05/2024 Herpes Resolved Ambulatory Problems Diagnosis Date Noted No Resolved Ambulatory Problems Past Medical History: Diagnosis Date Bipolar disorder ([facility]) Depression ([facility]) IBS (irritable bowel syndrome) Marijuana use Panic attack ([facility]) PTSD (post-traumatic stress disorder) ([facility]) 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) Thyroid enlargement ([facility]) HISTORY PAST MEDICAL HISTORY SOCIAL HISTORY Past Medical History: Diagnosis Date Bipolar disorder ([facility]) Depression ([facility]) Fatty liver Herpes IBS (irritable bowel syndrome) Irritable bowel syndrome with diarrhea Marijuana use Mild chronic gastritis Panic attack ([facility]) PTSD (post-traumatic stress disorder) ([facility]) 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) Thyroid [...] of: MARLIN Pineda documented in this encounter [facility] 05-16-2024 History of Presen t illness Narrative [...] Problems Diagnosis Date Noted Bipolar 1 disorder ([facility]) 01/20/2023 Anxiety with depression 01/20/2023 Fatty liver 01/20/2023 Generalized anxiety disorder ([facility]) 01/20/2023 Irregular menses 01/20/2023 Irritable bowel syndrome with diarrhea 01/20/2023 Mild chronic gastritis 01/20/2023 Grief at loss of child ([facility]) 10/06/2023 Persistent depressive disorder ([facility]) 10/06/2023 Syncope 03/15/2024 Low-lying placenta [...] of: MARLIN Pineda documented in this encounter [facility] 05-02-2024 History of Presen t illness Narrative [...] Problems Diagnosis Date Noted Bipolar 1 disorder ([facility]) 01/20/2023 Anxiety with depression 01/20/2023 Fatty liver 01/20/2023 Generalized anxiety disorder ([facility]) 01/20/2023 Irregular menses 01/20/2023 Irritable bowel syndrome with diarrhea 01/20/2023 Mild chronic gastritis 01/20/2023 Grief at loss of child ([facility]) 10/06/2023 Persistent depressive disorder ([facility]) 10/06/2023 Syncope 03/15/2024 Low-lying placenta 03/15/2024 Dizziness 03/15/2024 Dehydration 03/15/2024 Migraine without status migrainosus, not intractable ([facility]) 03/15/2024 Irregular uterine contractions 03/15/2024 Chronic fatigue 04/05/2024 Resolved Ambulatory Problems Diagnosis Date Noted No Resolved Ambulatory Problems Past Medical History: Diagnosis Date Bipolar disorder ([facility]) Depression ([facility]) Herpes IBS (irritable bowel syndrome) Marijuana use Panic attack ([facility]) PTSD (post-traumatic stress disorder) ([facility]) 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) Thyroid enlargement ([facility]) HISTORY PAST MEDICAL HISTORY SOCIAL HISTORY Past Medical History: Diagnosis Date Bipolar disorder ([facility]) Depression ([facility]) Fatty liver Herpes IBS (irritable bowel syndrome) Irritable bowel syndrome with diarrhea Marijuana use Mild chronic gastritis Panic attack ([facility]) PTSD (post-traumatic stress disorder) ([facility]) 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) Thyroid enlargement ([facility]) Social History Tobacco Use Smoking [...] nursing note reviewed. Exam conducted with a outside medical sales representative present. Vitals: Estimated body mass index is [...] of: MARLIN Pineda documented in this encounter [facility] 12-09-2022 Note OPERATIVE NOTE OPERATION DATE: 12/09/2022 PROCEDURE: Primary low transverse section. PREOPERATIVE DIAGNOSIS: 1. Intrauterine at 39 weeks. 2. 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 POSTOPERATIVE DIAGNOSIS: 1. Intrauterine at 39 weeks. 2. 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 ANESTHESIA: Spinal with Duramorph. SURGEON: Scott Mae D.O. BREAD SUPERVISOR: DANIELA Koch URINE OUTPUT: Yellow and clear. [...] the Recovery Room in stable condition. [facility] Evaluation note Diagnosis Third trimester state, incidental [...] content) DATE CREATED AUTHOR 04/24/2020 Roberson Charlie [facility] DATE CREATED AUTHOR AUTHOR'S ORGANIZ ATION 05/26/2020 [facility] DATE CREATED AUTHOR AUTHOR'S ORGANIZ ATION 08/02/2021 [facility] DATE CREATED AUTHOR AUTHOR'S ORGANIZ ATION 12/24/2022 [facility] DATE CREATED AUTHOR AUTHOR'S ORGANIZ ATION 01/21/2024 [facility] DATE CREATED AUTHOR AUTHOR'S ORGANIZ ATION 06/04/2024 [facility] DATE CREATED AUTHOR AUTHOR'S ORGANIZ ATION 06/16/2024 [facility] EPIC Care Teams (unrecognized sec tion and content) Body Mechanic Relationship Specialty Start Date End Date Janice Dinero DO [address] [place] [address] PCP - General Family Medicine 12/20/22 Body Mechanic Relationship Specialty Start Date End Date Janice Dinero DO [address] [place] [address] PCP - General Family Medicine 12/20/22 Body Mechanic Relationship Specialty Start Date End Date Janice Dinero, [address] [place] [address] PCP - General Family Medicine 12/20/22 Body Mechanic Relationship Specialty Start Date End Date Janice Dinero DO [address] [place] [address] PCP - General Family Medicine 12/20/22 Body Mechanic Relationship Specialty Start Date End Date RumJanice casas, DO [address] [place] [address] PCP - General Family Medicine 12/20/22 Body Mechanic Relationship Specialty Start Date End Date RumJanice casas, DO [address] [place] [address] PCP - General Family Medicine 12/20/22 Body Mechanic Relationship Specialty Start Date End Date RumyesseniaShelbiety, DO [address] [place] [address] PCP - General Family Medicine 12/20/22 Body Mechanic Relationship Specialty Start Date End Date Rumyessenia Janice, DO [address] [place] [address] PCP - General Family Medicine 12/20/22 Body Mechanic Relationship Specialty Start Date End Date YesicaJanice casas, DO [address] [place] [address] PCP - General Family Medicine 12/20/22 Body Mechanic Relationship Specialty Start Date End Date RumJanice casas, DO [address] [place] [address] PCP - General Family Medicine 12/20/22 Reason [...] BE BASED ON THE PRIMARY CLINICAL RECORDS. [employer] [facility]. provides no warranty or guarantee of the accuracy or completeness of information in this document.
[2024-06-21] MEDS: CITRIC ACID/SODIUM CITRATE 30 ML SOLUTION ORACIT SHOHL'S SOLN PO (16:44)
[2024-06-21] MEDS: FAMOTIDINE/PF 20 MG/2 ML VIAL IV (16:44)
[2024-06-21] MEDS: CEFAZOLIN SODIUM/DEXTROSE,ISO 2 GM/50 ML PIGGYBACK IV ×2 (16:45→22:41)
[2024-06-21] MEDS: METOCLOPRAMIDE HCL 10 MG/2 ML VIAL IVP (16:45)
[2024-06-21 16:48] LABS: Bacteria Urine TRACE #/HPF (NONE SEEN); Mucus Urine NONE SEEN (NONE SEEN); RBC Urine 0-2 #/HPF (0-2); WBC Urine NONE SEEN #/HPF (NONE SEEN)
[2024-06-21 16:49] LABS: Amphetamine Screen Urine NEGATIVE (NEGATIVE); Benzodiazepines Screen Urine NEGATIVE (NEGATIVE); Cannabinoid Screen Urine NEGATIVE (NEGATIVE); Cast Seen? NONE SEEN #/LPF (NONE SEEN); Cocaine Screen Urine NEGATIVE (NEGATIVE); Crystals Seen? None Seen #/HPF (None Seen); Methadone Screen Urine NEGATIVE (NEGATIVE); Methamphetamines Screen Urine NEGATIVE (NEGATIVE); Opiate Screen Urine NEGATIVE (NEGATIVE); Phencyclidine Screen Urine NEGATIVE (NEGATIVE); Squamous Epithelial Cell Urine FEW #/LPF (NONE/RARE); Tricyclic Antidepressant Urine NEGATIVE (NEGATIVE)
[2024-06-21 16:50] LABS: Barbiturates Screen Urine NEGATIVE (NEGATIVE); Buprenorphine Screen Urine NEGATIVE (NEGATIVE); Oxycodone Screen Urine NEGATIVE (NEGATIVE)
--- NOTE | 2024-06-21 17:52 | P.ON_ITS ---
Brief Operative Note Date of procedure: 06/21/24 Pre-op diagnosis general: iup at 37 4/7wks, ho hsv, previous c/s, prom Post-op diagnosis: same as pre-op Procedure: NAME OF PROCEDURE: [ section ] PROCEDURE: Patient was taken back to the Operating Room where she was given a spinal anesthesia with Duramorph without difficulty. She was prepped and draped in the normal sterile fashion. A Pfannenstiel skin incision was then made 2 cm above the symphysis pubis and carried down to underlying rectus fascia using a Bovie. The fascia was incised in the midline and extended laterally using Oshea scissors. Two Harriett clamps were placed on the superior aspect of the fascia and dissected off the underlying rectus muscles. The same was performed on the inferior aspect as well. The muscles were then in the midline. Perito neum was identified and entered bluntly. The peritoneum was then extended superiorly and inferiorly with good visualization of the bladder. The bladder blade was inserted. A low transverse incision was made on the patient's uterus and extended laterally digitally. The was then delivered atraumatically after the bladder blade was removed in the cephalic position. The cord was clamped and cut. Cord blood was obtained. The was handed off to awaiting team. The patient's placenta was spontaneously delivered. The uterus was then exteriorized. The uterus was cleared of all clots and debris. The bladder blade was reinserted. The patient's uterine incision was closed using #0 Vicryl in a running lock fashion. Excellent hemostasis was assured. The uterus was then returned to the patient's abdomen. The patient's abdomen was copiously irrigated using warm saline. Peritoneal gutters were cleared of all clots and debris. Again excellent hemostasis was assured. The patient's peritoneum was closed using 3-0 Vicryl in a running fashion. The patient's fascia was closed using #0 Vicryl in a running fashion. The patient's skin was closed using 4-0 Vicryl subcuticularly. The patient tolerated the procedure well. Sponge, lap, and needle counts were correct x2. The patient was taken to the Recovery Room in stable condition. Anesthesia: spinal Surgeon: Scott Mae Paint Spray Tender: Connie Rousseau Estimated blood loss (mL): 575 Pathology: none sent Condition: stable Disposition: PACU Urinary Catheter Management Urinary Catheter Management Urethral: Cath placed during this visit: yes Urethral indwelling: No Insertion date: 06/21/24 Insertion time: 16:30
--- NOTE | 2024-06-21 17:54 | PM.OBPRCCS ---
Procedure Boot And Shoe Repairman: Connie Rousseau Estimated blood loss (mL): 575 Disposition: floor Anesthesia type: Spinal
[2024-06-21] MEDS: OXYTOCIN/0.9 % SODIUM CHLORIDE 20 UNITS/1,000 ML PLAST..BAG 125 UNIT IV (18:30)
[2024-06-21] MEDS: KETOROLAC TROMETHAMINE 30 MG/ML VIAL IVP (22:47)
[2024-06-22] VITALS (14 sets, daily range): BP systolic 112–127; BP diastolic 74–81; PULSE 90–95; TEMP 35.8–36.7
[2024-06-22] MEDS: ACETAMINOPHEN 500 MG TABLET 1000 MG PO ×2 (01:35→17:26)
[2024-06-22] MEDS: ENOXAPARIN SODIUM 40 MG/0.4 ML SYRINGE SUBQ (04:53)
[2024-06-22] MEDS: KETOROLAC TROMETHAMINE 30 MG/ML VIAL IVP ×2 (04:53→16:00)
[2024-06-22 07:13] LABS: Mean Corpuscular HGB Conc 29.1 g/dL (29.9-35.2); Mean Corpuscular Hemoglobin 22.4 pg (26.7-34.0); Mean Corpuscular Volume 77.2 fL (81.0-99.0); Mean Platelet Volume 10.9 fL (9.5-13.5); Platelet Count 241 10^3/uL (150-450); Red Blood Count 3.03 10^6/uL (4.20-5.40); Red Cell Distribution Width 16.4 % (11.0-15.0); White Blood Count 15.5 10^3/uL (4.0-11.0)
[2024-06-22 07:25] LABS: Hemoglobin 6.8 g/dL (12.0-16.0)
[2024-06-22 07:27] LABS: Hematocrit 23.4 % (36.0-48.0)
[2024-06-22 07:35] LABS: Basophils Abs Manual 0.15 10^3/uL (0.00-0.10); Monocytes Absolute Manual 0.77 10^3/uL (0.30-0.80); Segmented Neut Absolute Manual 12.86 10^3/uL (1.4-6.5)
--- NOTE | 2024-06-22 07:56 | P.OBPN_ITS ---
OB - PN: Subj Subjective Patient comments: no complaints and pain well controlled [place] status: doing well Exam Constitutional Vital Signs, click to edit/add: Last Vital Signs Temp 98.1 F 06/22/24 04:53 Pulse 107 H 06/21/24 18:57 Resp 21 H 06/21/24 18:57 BP 126/80 06/22/24 04:53 Pulse Ox 93 L 06/21/24 18:55 O2 Del Method Room Air 06/22/24 04:55 Documenting provider has reviewed patient's vital signs: yes Common normals: no apparent distress Respiratory Common normals: clear to auscultation bilaterally Cardio Common normals: regular rate and regular rhythm GI Common normals: Normal to inspection, nondistended, normoactive bowel sounds present Extremity Common normals: no clubbing, cyanosis or edema and no calf tenderness Results Labs Labs: Short CBC 06/21/24 06/22/24 Range/Units 16:14 06:24 WBC 10.1 15.5 H (4.0-11.0) 10^3/uL Hgb 8.3 L 6.8 L* (12.0-16.0) g/dL Hct 27.7 L 23.4 L* (36.0-48.0) % Plt Count 271 241 (150-450) 10^3/uL Urine 06/21/24 Range/Units 16:14 Urine Color Lt. yellow (YELLOW) Urine Clarity Clear (CLEAR) Urine pH 7.0 (5.0-9.0) Ur Specific [place] 1.010 (1.005-1.025) Urine Protein 30 A (NEG/TRACE) mg/dL Urine Glucose (UA) Negative (NEGATIVE) mg/dL Urinary Catheter Management Urinary Catheter Management Urethral: Cath placed during this visit: yes, but has since been removed by the nurse Urethral indwelling: No Insertion date: 06/21/24 Insertion time: 16:30 Removal date: 06/22/24 Removal time: 02:15 OB - PN: A/P Assessment and Plan (1) Acute blood loss anemia: Assessment and Plan: transfuse 1u prbc Plan - day: 1 Plan: routine postop care Time Spent with Patient Time: Total time spent is greater than 50% in coordination of care (as documented) at patient's floor/unit and/or counseling patient: Total time spent with greater than 50% in coordination of care (as documented) at patient's floor/unit and/or counseling patient: less than 15 minutes
[2024-06-22] MEDS: 0.9 % SODIUM CHLORIDE 250 ML 10 ML IV (10:55)
[2024-06-22] MEDS: DOCUSATE SODIUM 100 MG CAPSULE PO ×2 (10:55→20:53)
[2024-06-22] MEDS: IBUPROFEN 400 MG TABLET 800 MG PO (22:22)
[2024-06-23] MEDS: ACETAMINOPHEN 500 MG TABLET 1000 MG PO ×3 (01:48→17:26)
[2024-06-23] MEDS: OXYCODONE HCL 5 MG TABLET PO ×3 (01:48→13:31)
[2024-06-23 02:00] VITALS: BP 127/84; TEMP 36.8
[2024-06-23] MEDS: 0.9 % SODIUM CHLORIDE 250 ML 10 ML IV (02:10)
[2024-06-23] MEDS: CEFAZOLIN SODIUM/DEXTROSE,ISO 1 GM/50 ML PREMIX IV (02:10)
[2024-06-23] MEDS: IBUPROFEN 400 MG TABLET 800 MG PO ×4 (04:49→23:56)
[2024-06-23] MEDS: ENOXAPARIN SODIUM 40 MG/0.4 ML SYRINGE SUBQ (04:50)
[2024-06-23 05:20] LABS: Bilirubin Urine NEGATIVE (NEGATIVE); Blood Urine LARGE (NEGATIVE); Clarity Urine CLEAR (CLEAR); Color Urine LT. YELLOW (YELLOW); Glucose Urine UA NEGATIVE (NEGATIVE); Ketones Urine NEGATIVE (NEGATIVE); Leukocyte Esterase Urine NEGATIVE (NEGATIVE); Nitrite Urine NEGATIVE (NEGATIVE); Protein Urine NEGATIVE (NEG/TRACE); Urobilinogen Urine 0.2 EU/dL (0.2-1.0); pH Urine 5.5 (5.0-9.0)
[2024-06-23 05:22] LABS: Urine Microscopic Indicated YES
[2024-06-23 05:32] LABS: Bacteria Urine NONE SEEN #/HPF (NONE SEEN); Cast Seen? NONE SEEN #/LPF (NONE SEEN); Crystals Seen? None Seen #/HPF (None Seen); Mucus Urine NONE SEEN (NONE SEEN); RBC Urine 50-75 #/HPF (0-2); Squamous Epithelial Cell Urine MODERATE #/LPF (NONE/RARE); Urine Culture Indicated NO; WBC Urine 0-2 #/HPF (NONE SEEN)
[2024-06-23 07:11] LABS: Basophils Absolute Auto 0.1 10^3/uL (0.0-0.1); Basophils Percent Auto 0.5 % (0.2-2.0); Eosinophils Absolute Auto 0.1 10^3/uL (0.0-0.7); Eosinophils Percent Auto 1.2 % (0.9-7.0); Hematocrit 25.5 % (36.0-48.0); Hemoglobin 7.5 g/dL (12.0-16.0); Immature Granulocytes Abs Auto 0.36 10^3/uL (0.00-0.03); Lymphocytes Absolute Auto 2.4 10^3/uL (1.2-3.8); Mean Corpuscular HGB Conc 29.4 g/dL (29.9-35.2); Mean Corpuscular Hemoglobin 22.9 pg (26.7-34.0); Mean Corpuscular Volume 77.7 fL (81.0-99.0); Mean Platelet Volume 10.2 fL (9.5-13.5); Monocytes Percent Auto 8.4 % (1.7-12.0); Neutrophils Percent Auto 66.9 % (43.0-75.0); Platelet Count 242 10^3/uL (150-450); Red Blood Count 3.28 10^6/uL (4.20-5.40); Red Cell Distribution Width 16.6 % (11.0-15.0)
[2024-06-23 07:47] VITALS: BP 142/90; PULSE 98; TEMP 36.7
[2024-06-23] MEDS: DOCUSATE SODIUM 100 MG CAPSULE PO ×2 (09:10→21:35)
[2024-06-23 09:13] VITALS: BP 141/85
--- NOTE | 2024-06-23 11:32 | PM.OBPN ---
OB - PN: Subj Subjective Patient comments: other (still trying to get post op pain under control with PO pain meds) [place] infant status: doing well and bottle [place] feeding status: exclusively bottle feeding Exam Narrative Exam Narrative: hemoblobin up to 7.2 from 6.5 and assymptomatic Constitutional Vital Signs, click to edit/add: Last Vital Signs Temp 98.1 F 06/23/24 07:47 Pulse 98 H 06/23/24 07:47 Resp 16 06/23/24 07:47 BP 141/85 06/23/24 09:13 Pulse Ox 93 L 06/21/24 18:55 O2 Del Method Room Air 06/23/24 07:47 Documenting provider has reviewed patient's vital signs: yes Common normals: no apparent distress and oriented x3 HENMT Common normals: normocephalic and head/scalp atraumatic Eye Common normals: PERRL Pupil: accommodation reflex normal Neck & C-Spine Common normals: full ROM and supple Respiratory Common normals: normal respiratory effort Auscultation: clear to auscultation bilaterally Cardio Common normals: regular rate and regular rhythm GI Common normals: Normal to inspection, nondistended, normoactive bowel sounds present, soft to palpation and non-tender Common normals: no CVA tenderness Back & Pelvis Common normals: no thoracic nor lumbar tenderness Extremity Common normals: normal to inspection, full ROM and no calf tenderness Neuro Common normals: oriented x3, CN's II-XII intact bilaterally, moves all extremities, no focal motor deficits and no sensory deficits noted Psych Common normals: mental status grossly normal, thought process normal, cooperative, affect normal and speech normal Results Labs Labs: Short CBC 06/23/24 Range/Units 06:50 WBC 12.0 H (4.0-11.0) 10^3/uL Hgb 7.5 L (12.0-16.0) g/dL Hct 25.5 L (36.0-48.0) % Plt Count 242 (150-450) 10^3/uL Urine 06/23/24 Range/Units 03:30 Urine Color Lt. yellow (YELLOW) Urine Clarity Clear (CLEAR) Urine pH 5.5 (5.0-9.0) Ur Specific [place] 1.010 (1.005-1.025) Urine Protein Negative (NEG/TRACE) mg/dL Urine Glucose (UA) Negative (NEGATIVE) mg/dL Urinary Catheter Management Urinary Catheter Management Urethral: Cath placed during this visit: yes, but has since been removed by the nurse Urethral indwelling: No Insertion date: 06/21/24 Insertion time: 16:30 Removal date: 06/22/24 Removal time: 02:15 OB - PN: A/P Assessment and Plan (1) Acute blood loss anemia: Assessment and Plan: asymptomatic, s/p one unit of PRBC Plan start PO iron sulfate Plan - day: 2 Plan: routine postop care Plan - Vaginal Delivery day: 2 Plan: routine care Time Spent with Patient Time: Total time spent is greater than 50% in coordination of care (as documented) at patient's floor/unit and/or counseling patient: Total time spent with greater than 50% in coordination of care (as documented) at patient's floor/unit and/or counseling patient: less than 15 minutes
[2024-06-23] MEDS: IRON PS COMPLEX/B12/FOLIC ACID CAPSULE 1 CAP PO (13:32)
[2024-06-23 17:16] VITALS: BP 137/88
--- NOTE | 2024-06-23 17:51 | RESP.RT ---
done per nursing
[2024-06-23] MEDS: OXYCODONE HCL 5 MG TABLET 10 MG PO ×2 (19:29→23:55)
[2024-06-24 01:25] VITALS: BP 119/80; PULSE 96; TEMP 36.8
[2024-06-24] MEDS: ACETAMINOPHEN 500 MG TABLET 1000 MG PO ×2 (01:29→09:40)
[2024-06-24] MEDS: OXYCODONE HCL 5 MG TABLET 10 MG PO ×3 (04:59→13:47)
[2024-06-24] MEDS: ENOXAPARIN SODIUM 40 MG/0.4 ML SYRINGE SUBQ (05:00)
[2024-06-24] MEDS: IBUPROFEN 400 MG TABLET 800 MG PO ×2 (05:35→13:46)
[2024-06-24 08:15] VITALS: TEMP 36.8
[2024-06-24 08:16] VITALS: BP 117/88
[2024-06-24] MEDS: DOCUSATE SODIUM 100 MG CAPSULE PO (09:38)
[2024-06-24] MEDS: IRON PS COMPLEX/B12/FOLIC ACID CAPSULE 1 CAP PO (09:39)
--- NOTE | 2024-06-24 11:01 | P.DS_ITS ---
DS: Providers Provider Date of admission: 06/21/24 16:07 Primary care physician: Janice Dinero Admitting clinician: Scott Mae Consults: 06/21/24 Consult to Anesthesiology Routine Consulting Provider: Teofilo Bucio Reason for consultation: Attending physician on discharge: Jessika Dominguez Anticipated date of discharge: 06/24/24 DS: Diagnosis Discharge Diagnosis (1) Acute blood loss anemia: Assessment and plan: assymptomatic, will discharge on iron PO (2) Previous section: Assessment and plan: clinical exam nonfocal, pain well controlled, afebrile, vss, ambulating and eliminating normally eating regular diet Plan discharge to home, follow up this week with Dr. Mae for incision check, call for problem or concern, instructions given with stated understanding OB - DS: Summary Hospital Course Hospital Course: uncomplicated Time spent discussing smoking cessation with patient: more than 10 minutes Complications complications: none Delivery method: section Gender: male Discharge plan: home Status at Discharge Cognitive/behavioral status at discharge: wnl Functional status at discharge: independent ambulation Overall status at discharge: patient is progressing back to baseline Time Spent with Patient Time attestation: Total time spent providing and/or coordinating discharge services: Time spent: less than 30 minutes Exam Constitutional Vital Signs, click to edit/add: Last Vital Signs Temp 98.3 F 06/24/24 08:15 Pulse 96 H 06/24/24 01:25 Resp 14 06/24/24 08:15 BP 119/80 06/24/24 01:25 Pulse Ox 93 L 06/21/24 18:55 O2 Del Method Room Air 06/24/24 08:15 Documenting provider has reviewed patient's vital signs: yes Common normals: no apparent distress, oriented x3, no limitations, healthy appearing and alert [facility] Common normals: normocephalic and head/scalp atraumatic Eye Pupil: PERRL and accommodation reflex normal Neck & C-Spine Common normals: full ROM and supple Respiratory Common normals: normal respiratory effort Auscultation: clear to auscultation bilaterally Cardio Common normals: regular rate and regular rhythm GI Common normals: Normal to inspection, nondistended, normoactive bowel sounds present, soft to palpation and non-tender Common normals: no CVA tenderness Back & Pelvis Common normals: no thoracic nor lumbar tenderness Extremity Common normals: normal to inspection, full ROM and no calf tenderness Neuro Common normals: CN's II-XII intact bilaterally, moves all extremities, no focal motor deficits and no sensory deficits noted Motor exam: strength 5/5 throughout Psych Common normals: mental status grossly normal, thought process normal, cooperative, affect normal, speech normal and activity/motor behavior normal Discharge Plan Discharge Disposition: Home, Self-Care Condition: Good Assessment: clinical exam nonfocal, appropriate for discharge Health Concerns: none Plan of Treatment: discharge home on iron PO QD Discharge Medications: Continued magnesium aspart,citrate,oxide 400 mg magnesium capsule 400 mg PO DAILY Pro Fe 180 mg iron capsule 180 mg PO DAILY valacyclovir 500 mg tablet 500 mg PO DAILY Activity: increase activity as tolerated Activity Detail: no sex six weeks, no bathtub may shower six weeks, may climb stairs, no driving 4 weeks, walking only exercise six weeks Diet: regular diet Print Language: Bulgarian Patient Instructions: Anemia (DC), (DC) Forms: Portal Instructions Follow Up Appointments: make incision check appointment this coming week with Dr. Mae Discharge location: home
[2024-06-24 16:40] VITALS: TEMP 37
[2024-06-24 16:42] VITALS: BP 111/71
== END 2024-06-24 16:50 | disposition home or self-care (01) | DRG 787 ==
PROVIDERS: Obstetrics & Gynecology; Admitting Provider Obstetrics & Gynecology; PCP Family Medicine; Visit Provider Obstetrics & Gynecology
DX: O42.92 Full-term premature rupture of membranes, unspecified as to length of time between rupture and onset of labor (principal); D62 Acute posthemorrhagic anemia; O34.211 Maternal care for low transverse scar from previous cesarean delivery; Z3A.37 37 weeks gestation of pregnancy; Z37.0 Single live birth; O90.81 Anemia of the puerperium; Z87.891 Personal history of nicotine dependence
CPT/HCPCS: 36415; 36430; 51702; 59025; 80307; 81001; 85007; 85025; 85027; 86850; 86900; 86901; 86923; 94667; 94668; J0131; J0665; J0690; J1100; J1650; J1885; J2274; J2405; J2590; J2765; P9016